=== PATIENT | female | born 1955 | race Two or more races ===

== ENCOUNTER 2016-06-01 11:27 | Inpatient (IN) | payer MEDICAID, OTHER ==
[2016-06-01] VITALS (11 sets, daily range): BP systolic 116–202; BP diastolic 55–113
[~2016-06-01] VITALS: Ht 165.1 cm; Wt 75.9 kg
[~2016-06-01 11:27] MED LIST: AMLO5TAB2 PO; ASPI81TA9 PO; ATOR40TA59 PO; CARV12.5 PO; CARV12.52 PO; CLON0.1T PO; CLOP75TA PO; DILT300C23 PO; FURO80TA3 PO; GLYB5TAB3 PO; HYDR-2869 PO; HYDR25TA9 PO; INSU100V13 SQ; ISOS30TA4 PO; LISI-334 PO
[2016-06-01 12:18] LABS: BASO # 0.1 x10^3/uL (0.0-0.2); BASO % 1 % (0-3); EOS % 3 % (0-3); HEMATOCRIT 25.1 % (36.0-47.0); HEMOGLOBIN 8.1 g/dL (12.0-15.5); LYMPH # 1.4 x10^3/uL (1.0-4.8); LYMPH % 17 % (24-48); MEAN CORPUSCULAR HEMOGLOBIN 30 pg (25-35); MEAN CORPUSCULAR HGB CONC 32 g/dL (31-37); MEAN CORPUSCULAR VOLUME 94 fL (79-100); MONO % 7 % (0-9); NEUT % 73 % (31-73); PLATELET COUNT 211 x10^3/uL (140-400); RED BLOOD COUNT 2.69 x10^6/uL (3.50-5.40); RED CELL DISTRIBUTION WIDTH 14.9 % (11.5-14.5); WHITE BLOOD COUNT 8.3 x10^3/uL (4.0-11.0)
[2016-06-01 12:29] LABS: CREATININE 3.9 mg/dL (0.6-1.0); GFR 11.8; POTASSIUM 4.9 mmol/L (3.5-5.1)
--- NOTE | 2016-06-01 12:30 | RAD ---
Portable chest, 06/01/2016: History: Chest pain Comparison is made to a study from 02/21/2016. The patient is rotated to the right. The heart is at the upper limits of normal in size. The pulmonary vascularity is more prominent than on the previous study with mild upper lobe pulmonary venous redistribution. No pulmonary consolidation is seen. There is no evidence of pleural fluid. IMPRESSION: Borderline vascular congestion.
--- NOTE | 2016-06-01 12:30 | EKG ---
[facility] [address] [place] [address] Test Date: 2016-06-01 Test Time: 11:41:20 Pat Name: JORDY GARCIA Department: Room: Gender: F Business Dean: : 1955 Requested By: NAVEED YAÑEZ Order Number: [id number] Reading MD: Latrice Hopkins Measurements Intervals [facility] Rate: 105 P: 31 CT: 150 QRS: 0 QRSD: 88 T: 158 QT: 332 QTc: 443 Interpretive Statements SINUS TACHYCARDIA LEFTWARD AXIS LVH WITH REPOLARIZATION ABNORMALITY ST T WAVE CHANGES CONSISTENT WITH LATERAL WALL ISCHEMIA Electronically Signed On 06-06-2016 14:51:48 MEDICATION AIDE by Latrice Hopkins
[2016-06-01 12:35] LABS: ALBUMIN 2.6 g/dL (3.4-5.0); ALBUMIN/GLOBULIN RATIO 0.7 (1.0-1.7); TOTAL BILIRUBIN 0.2 mg/dL (0.2-1.0); TOTAL PROTEIN 6.2 g/dL (6.4-8.2)
[2016-06-01] MEDS ORDERED: ONDANSETRON PF 4 MG/2 ML VIAL. IV PRN ×2 (12:45→15:00)
[2016-06-01] MEDS ORDERED: ASPIRIN 81 MG TAB.CHEW PO ONE (12:45)
[2016-06-01] MEDS ORDERED: NITROGLYCERIN SUBLINGUAL 0.4 MG BOTTLE OF 25. SL PRN (12:45)
[2016-06-01] MEDS ORDERED: MORPHINE SULFATE 4 MG/ML DISP.SYRIN. IV PRN (12:45)
[2016-06-01] MEDS ORDERED: HEPARIN for IV BOLUS 10,000 UNIT/10 ML VIAL. IV PRN (12:45)
--- NOTE | 2016-06-01 12:55 | PHYS DOC ---
Past Medical History Past Medical History: CAD, CHF, Diabetes-Type II, Hypertension, Other Additional Past Medical Histor: PSORASIS Past Surgical History: Angioplasty, Coronary Bypass Surgery, Other Additional Past Surgical Histo: 2L fluid removed from lungs, coronary angiography Alcohol Use: None Drug Use: None Adult General Chief Complaint Chief Complaint: CHEST WALL PAIN HPI HPI 61-year-old female with multiple medical problems including history of heart disease and renal failure presents with a 18-24 hour history of chest discomfort. She states it was problematic last night and again this morning but on arrival to the emergency department she is pain-free. She also complains of some shortness of breath and nausea but no diaphoresis. She has not been active and is unsure whether or not symptoms worsened with exertion. She states this pain feels exactly like the pain she had previously with a heart attack. Patient is [place] only speaking in the history was taken through an orthopedic shoe fitter. She does report that she was supposed to follow with a insurance agency manager and a heater engineer helper but due to insurance concerns she followed with neither of them. [] Review of Systems Review of Systems Constitutional: Denies fever or chills [] Eyes: Denies change in visual acuity, redness, or eye pain [] HENT: Denies nasal congestion or sore throat [] Respiratory: Denies cough or shortness of breath [] Cardiovascular: No additional information not addressed in HPI [] GI: Denies abdominal pain, nausea, vomiting, bloody stools or diarrhea [] : Denies dysuria or hematuria [] Musculoskeletal: Denies back pain or joint pain [] Integument: Denies rash or skin lesions [] Neurologic: Denies headache, focal weakness or sensory changes [] Endocrine: Denies polyuria or polydipsia [] Current Medications Current Medications Current Medications Medications (Trade) Dose Ordered Sig/[place] Start Time Stop Time Status Last Admin Dose Admin Aspirin 324 mg 324 mg 1X ONCE 06/01/16 12:45 06/01/16 12:48 DC 06/01/16 12:59 324 MG Heparin Sodium (Porcine) 1,950 unit PRN Q6HRS PRN 06/01/16 12:45 06/01/16 13:01 1,950 UNIT Heparin Sodium/ Dextrose 500 ml @ 19 mls/hr CONT PRN 06/01/16 12:45 06/02/16 14:45 19 MLS/HR Morphine Sulfate 4 mg PRN Q2HR PRN 06/01/16 12:45 06/02/16 12:44 DC 06/01/16 14:03 4 MG Nitroglycerin (Nitrostat) 0.4 mg PRN Q5MIN PRN 06/01/16 12:45 06/02/16 12:44 DC 06/01/16 14:03 0.4 MG Ondansetron HCl (Zofran) 4 mg PRN Q8HRS PRN 06/01/16 12:45 06/02/16 12:44 DC Allergies Allergies Allergies Coded Allergies Type Severity Reaction Last Updated Verified No Known Drug Allergies 06/22/15 No Physical Exam Physical Exam Constitutional: Well developed, well nourished, no acute distress, non-toxic appearance. [] HENT: Normocephalic, atraumatic, bilateral external ears normal, oropharynx moist, no oral exudates, nose normal. [] Eyes: PERRLA, EOMI, conjunctiva normal, no discharge. [] Neck: Normal range of motion, no tenderness, supple, no stridor. [] Cardiovascular:Heart rate regular rhythm, no murmur [] Lungs & Thorax: Bilateral breath sounds clear to auscultation [] Abdomen: Bowel sounds normal, soft, no tenderness, no masses, no pulsatile masses. [] Skin: Warm, dry, no erythema, no rash. [] Back: No tenderness, no CVA tenderness. [] Extremities: No tenderness, no cyanosis, no clubbing, ROM intact, no edema. [] Neurologic: Alert and oriented X 3, normal motor function, normal sensory function, no focal deficits noted. [] Psychologic: Affect normal, judgement normal, mood normal. [] Current Patient Data Vital Signs Vital Signs Date Time Temp Pulse Resp B/P Pulse Ox O2 Delivery O2 Flow Rate FiO2 06/01/16 12:45 102 193/91 100 Room Air 06/01/16 11:39 97.8 20 97.8 Lab Values Laboratory Tests Test 06/01/16 12:02 White Blood Count 8.3x10^3/uL (4.0-11.0) Red Blood Count 2.69x10^6/uL (3.50-5.40) L Hemoglobin 8.1g/dL (12.0-15.5) L Hematocrit 25.1% (36.0-47.0) L Mean Corpuscular Volume 94fL (79-100) Mean Corpuscular Hemoglobin 30pg (25-35) Mean Corpuscular Hemoglobin Concent 32g/dL (31-37) Red Cell Distribution Width 14.9% (11.5-14.5) H Platelet Count 211x10^3/uL (140-400) Neutrophils (%) (Auto) 73% (31-73) Lymphocytes (%) (Auto) 17% (24-48) L Monocytes (%) (Auto) 7% (0-9) Eosinophils (%) (Auto) 3% (0-3) Basophils (%) (Auto) 1% (0-3) Neutrophils # (Auto) 6.0x10^3uL (1.8-7.7) Lymphocytes # (Auto) 1.4x10^3/uL (1.0-4.8) Monocytes # (Auto) 0.6x10^3/uL (0.0-1.1) Eosinophils # (Auto) 0.2x10^3/uL (0.0-0.7) Basophils # (Auto) 0.1x10^3/uL (0.0-0.2) Sodium Level 141mmol/L (136-145) Potassium Level 4.9mmol/L (3.5-5.1) Chloride Level 111mmol/L (98-107) H Carbon Dioxide Level 19mmol/L (21-32) L Anion Gap 11 (6-14) Blood Urea Nitrogen 49mg/dL (7-20) H Creatinine 3.9mg/dL (0.6-1.0) H Estimated GFR (Cockcroft-Gault) 11.8 BUN/Creatinine Ratio 13 (6-20) Glucose Level 185mg/dL (70-99) H Calcium Level 8.0mg/dL (8.5-10.1) L Total Bilirubin 0.2mg/dL (0.2-1.0) Aspartate Amino Transferase (AST) 17U/L (15-37) Alanine Aminotransferase (ALT) 10U/L (14-59) L Alkaline Phosphatase 90U/L (46-116) Troponin I Quantitative 2.073ng/mL (0.000-0.055) HV-Wub-I-Type Natriuretic Peptide 07550oz/mL (0-124) H Total Protein 6.2g/dL (6.4-8.2) L Albumin 2.6g/dL (3.4-5.0) L Albumin/Globulin Ratio 0.7 (1.0-1.7) L Laboratory Tests 06/01/16 12:02 Laboratory Tests 06/01/16 12:02 EKG EKG [EKG: Sinus tachycardia rate of [address] depression V3 through V6 which is much more pronounced than the EKG on 02/23/2016.] Radiology/Procedures Radiology/Procedures [] Impressions: PROCEDURE: CHEST AP ONLY Portable chest, 06/01/2016: History: Chest pain Comparison is made to a study from 02/21/2016. The patient is rotated to the right. The heart is at the upper limits of normal in size. The pulmonary vascularity is more prominent than on the previous study with mild upper lobe pulmonary venous redistribution. No pulmonary consolidation is seen. There is no evidence of pleural fluid. IMPRESSION: Borderline vascular congestion. Course & Med Decision Making Course & Med Decision Making Pertinent Labs and Imaging studies reviewed. (See chart for details) CRITICAL CARE time was 30 minutes - time exclusive of any procedures performed. Care included medical management, x-ray/lab interpretation, discussions with the patient and their family as well as appropriate medical consultants. ED course: Evaluation reveals a 61-year-old female with abnormal EKG and elevated troponin. She was started on aspirin and heparin drip during her stay in the emergency department. I spoke with cardiology, nephrology and internal medicine. Dr. Falcon will admit the patient to the intensive care unit with close consultation with cardiology and nephrology. Patient is chest pain-free during her stay in the emergency department. Dragon Disclaimer Dragon Disclaimer This electronic medical record was generated, in whole or in part, using a voice recognition dictation system. Departure Departure Impression: Primary Impression: NSTEMI (non-ST elevated myocardial infarction) Additional Impression: Congestive heart failure Disposition: 09 ADMITTED INPATIENT Admitting Physician: Deniz Falcon Condition: GUARDED Referrals: NO PCP (PCP) Problem Qualifiers Additional Impression: Congestive heart failure Congestive heart failure type: systolic Congestive heart failure chronicity: acute on chronic Qualified Code: I50.23 - Acute on chronic systolic ( congestive) heart failure NAVEED YAÑEZ DO Jun 01, 2016 12:55
[2016-06-01] MEDS: HEPARIN 25,000UTS/500ML PREMIX 500 ML IV PRN (13:03)
--- NOTE | 2016-06-01 13:03 | PDOC2 ---
NABILA TOLEDO TRANSPORTATION SUPERVISOR 06/01/16 1303: CARDIAC CONSULT DATE OF CONSULT Date of Consult DATE: 06/01/16 TIME: 12:53 REASON FOR CONSULT Reason for Consult: NSTEMI REFERRING PHYSICIAN Referring Physician: Dr. Barron SOURCE Source: Caregiver, Chart review, Patient HISTORY OF PRESENT ILLNESS HISTORY OF PRESENT ILLNESS This is a 61 yo female, with a h/o CAD s/p PCI/stenting of RCA, HTN, HLP, and CKD, who presented with complaints of intermittent chest pain over the last two weeks. Worse last night. Located in left chest. Stabbing in nature. Associated with back pain and SOA. One episode of nausea/vomiting last week. Activity, along with eating and drinking seems to worsen pain. Relieved by rest. Denies LE edema or orthopnea. Positives for OCAMPO. Denies any recent illness/fevers. Reports activity has been very limited over the last couple of weeks due to pain and SOA. Patient reports financial constraints; unable to afford medications/follow-up. Apparently ran out of medication on month after recent hospitalization in January and has not taken any medications since. Presently CP free. C/o back pain and mild SOA. PAST MEDICAL HISTORY Past Medical History Cardiovascular: HTN, CAD s/p PCI/stenting to RCA, Hyperlipidemia Pulmonary: No pertinent hx, Other (pleural effusion with thoracentesis) CENTRAL NERVOUS SYSTEM: Other (No pertinent history) GI: GERD Heme/Onc: No pertinent hx Hepatobiliary: No pertinent hx Psych: No pertinent hx Musculoskeletal: Osteoarthritis Rheumatologic: No pertinent hx Infectious disease: No pertinent hx ENT: No pertinent hx Renal/: CKD Endocrine: Diabetes (2) Dermatology: Psoriasis PAST SURGICAL HISTORY Past Surgical History ureteral stent placement, PCI/stent to RCA 05/2015 FAMILY HISTORY Family History: Heart Disease SOCIAL HISTORY Smoke: No ALCOHOL: none Lives: with Family ALLERGIES ALLERGIES: Coded Allergies: No Known Drug Allergies (Unverified , 06/22/15) ROS Review of System 14 point ROS conducted with pertinent positives noted above in HPI. PHYSICAL EXAM General: Alert, Oriented X3, Cooperative, moderate distress (now on NRB) HEENT: Atraumatic, Mucous membr. moist/pink Lungs: Other (diminished bases ) Heart: Normal S1, Normal S2, Other (tele: ST, 2/6 systolci murmur ) Abdomen: Soft, No tenderness Extremities: No cyanosis, No edema, Normal pulses Skin: No breakdown, No significant lesion, Other (psoriasis ) Neuro: Normal speech, Sensation intact Psych/Mental Status: Mental status NL, Mood NL MUSCULOSKELETAL: Full range of motion without pain VITALS VITALS Vital Signs Date Time Temp Pulse Resp B/P Pulse Ox O2 Delivery O2 Flow Rate FiO2 06/01/16 11:39 97.8 109 20 166/79 100 Room Air 97.8 LABS Lab: Laboratory Tests Test 06/01/16 12:02 White Blood Count 8.3x10^3/uL (4.0-11.0) Red Blood Count 2.69x10^6/uL (3.50-5.40) Hemoglobin 8.1g/dL (12.0-15.5) Hematocrit 25.1% (36.0-47.0) Mean Corpuscular Volume 94fL (79-100) Mean Corpuscular Hemoglobin 30pg (25-35) Mean Corpuscular Hemoglobin Concent 32g/dL (31-37) Red Cell Distribution Width 14.9% (11.5-14.5) Platelet Count 211x10^3/uL (140-400) Neutrophils (%) (Auto) 73% (31-73) Lymphocytes (%) (Auto) 17% (24-48) Monocytes (%) (Auto) 7% (0-9) Eosinophils (%) (Auto) 3% (0-3) Basophils (%) (Auto) 1% (0-3) Neutrophils # (Auto) 6.0x10^3uL (1.8-7.7) Lymphocytes # (Auto) 1.4x10^3/uL (1.0-4.8) Monocytes # (Auto) 0.6x10^3/uL (0.0-1.1) Eosinophils # (Auto) 0.2x10^3/uL (0.0-0.7) Basophils # (Auto) 0.1x10^3/uL (0.0-0.2) Sodium Level 141mmol/L (136-145) Potassium Level 4.9mmol/L (3.5-5.1) Chloride Level 111mmol/L (98-107) Carbon Dioxide Level 19mmol/L (21-32) Anion Gap 11 (6-14) Blood Urea Nitrogen 49mg/dL (7-20) Creatinine 3.9mg/dL (0.6-1.0) Estimated GFR (Cockcroft-Gault) 11.8 BUN/Creatinine Ratio 13 (6-20) Glucose Level 185mg/dL (70-99) Calcium Level 8.0mg/dL (8.5-10.1) Total Bilirubin 0.2mg/dL (0.2-1.0) Aspartate Amino Transf (AST/SGOT) 17U/L (15-37) Alanine Aminotransferase (ALT/SGPT) 10U/L (14-59) Alkaline Phosphatase 90U/L (46-116) Troponin I Quantitative 2.073ng/mL (0.000-0.055) QO-Wng-H-Type Natriuretic Peptide 47761ky/mL (0-124) Total Protein 6.2g/dL (6.4-8.2) Albumin 2.6g/dL (3.4-5.0) Albumin/Globulin Ratio 0.7 (1.0-1.7) ECHOCARDIOGRAM ECHOCARDIOGRAM <Conclusion> The left ventricle is normal size. The left ventricular systolic function is low normal. The Ejection Fraction is estimated at 50%. There is mild hypokinesis in the mid to distal septal wall. There is mild concentric left ventricular hypertrophy. There is no significant aortic valvular stenosis. Doppler and Color Flow revealed no significant aortic regurgitation. Doppler and Color-flow revealed mild to moderate mitral regurgitation. Doppler and Color Flow revealed trace tricuspid regurgitation. DATE: 02/22/16 1411 STRESS TEST STRESS TEST 1. Abnormal baseline EKG but no EKG evidence of stressed induced ischemia. 2. Nuclear imaging shows partially reversible ischemia in the inferior lateral region. 3. Decreased ejection fraction at 36% with inferior apical hypokinesis. 4. Moderate risk nuclear stress test. DATE: 02/22/16 1354 HEART CATH HEART CATH Conclusion 1. 80% stenosis involving the proximal to midsegment of the right coronary artery. Also seen was diffuse disease involving the distal segments of the left anterior descending and left circumflex artery that are not amenable for percutaneous intervention. 2. Successful PCI/stents placement to the right coronary artery. Recommendations 1. Aspirin 325 mg daily 2. Plavix 75 mg daily for preferably one year 3. Cardiovascular risk factor modification DATE: 06/27/15 1596 ASSESSMENT/PLAN ASSESSMENT/PLAN 1. NSTEMI 2. CAD 3. Acute on chronic combined systolic and diastolic HF 4. Ischemic cardiomyopathy 5. Malignant HTN 6. HLP 7. ZORAN with CKD 8. Noncompliance secondary to financial constraints. Recommendations stat echo initial trop 2.073- continue with series on heparin gtt. ASA in ED. Lipids in am start nitro gtt for vasodilation/BP control will give IV lasix now cardiac cath reviewed; suspect narrow LAD to be culprit If no significant improvement of symptoms with diuresis and BP control, would recommend cardiac cath. Discussed with primary die designer apprentice. Benefits, risks (including possibility of long-term HD), and alternatives discussed with patient and daughter and are agreeable. Will monitor closely Problems: JITENDRA COBURN MD 06/01/16 8488: CARDIAC CONSULT ALLERGIES ALLERGIES: Coded Allergies: No Known Drug Allergies (Unverified , 06/22/15) ASSESSMENT/PLAN ASSESSMENT/PLAN Patient seen and examined. Agree with above nurse practitioner note. 61-year-old woman presenting with acute on chronic systolic heart failure. On examination she is tachypneic with coarse rales throughout her lung medellin. Laboratory studies reviewed and notable for elevated troponin. Prior angiogram reviewed and suspect that she has had ischemia in the setting of significant hypertension and severe mitral regurgitation and diffuse coronary disease. We will initiate medical therapy with anticoagulation including heparinization but hold off on antiplatelet therapy in the event she has surgical disease. Continue offloading the left ventricle with nitroglycerin drip and decreasing blood pressure. Initiate diuresis with Lasix. Discussed with Dr. Lundy Continue supportive care. If she does not have any significant improvement by tomorrow then we will consider cardiac catheterization. Problems: NABILA TOLEDO APRN Jun 01, 2016 13:03 JITENDRA COBURN MD Jun 01, 2016 16:58
[2016-06-01] MEDS ORDERED: CLOPIDOGREL BISULFATE 75 MG TABLET PO SCH (14:00)
[2016-06-01] MEDS ORDERED: FUROSEMIDE 40 MG/4 ML VIAL IVP ONE ×2 (14:00→14:30)
[2016-06-01] MEDS: ASPIRIN ENTERIC COATED 81 MG TABLET.DR. PO SCH (14:00)
[2016-06-01] MEDS ORDERED: NITROGLYCERIN PREMIX 250 ML IV PRN (14:30)
[2016-06-01] MEDS: ISOSORBIDE MONONITRATE ER 30 MG TAB.ER.24H PO SCH (14:30)
[2016-06-01] MEDS: AMLODIPINE BESYLATE 5 MG TABLET PO SCH (14:32)
--- NOTE | 2016-06-01 14:35 | CARD ---
APPROVED REPORT EXAM: Two-dimensional and M-mode echocardiogram with Doppler and color Doppler. Other Information Quality : Average Rhythm : NSR INDICATION Non STEMI 2D DIMENSIONS Left Atrium(2D)4.2 (1.6-4.0cm)IVSd1.6 (0.7-1.1cm) LVDd5.6 (3.9-5.9cm)LVOT Diameter2.0 (1.8-2.4cm) PWd1.6 (0.7-1.1cm)LVDs4.7 (2.5-4.0cm) FS (%) 16.4 %SV52.9 ml LVEF(%)33.9 (>50%) Aortic Valve AoV Peak Fritz.180.2cm/sAoV VTI22.4cm AO Peak GR.13.0mmHgLVOT VTI 11.87cm AO Mean GR.7mmHg Mitral Valve MV E Zlorcrie017.4cm/sMV E Peak Gr.127mmHg MV DECEL [id number] A Rlyxasfd101.2cm/s E/A Ratio1.4 Tricuspid Valve TR P. Otmsfiyl832yd/sRAP [id number] TR Peak Gr.[id number] LEFT VENTRICLE The left ventricle is normal size. There is mild to moderate concentric left ventricular hypertrophy. Left ventricle systolic function is severely impaired. The Ejection Fraction is 25%. There is severe global hypokinesis with predominance noted in the inferior, apical iraheta. Unable to assess due to ta chycardia. RIGHT VENTRICLE The right ventricle is normal size. The right ventricular systolic function is normal. ATRIA The left atrium size is normal. The right atrium size is normal. The interatrial septum is intact wit h no evidence for an atrial septal defect or patent foramen ovale as noted on 2-D or Doppler imaging. AORTIC VALVE The aortic valve is not well visualized. Doppler and Color Flow revealed no significant aortic regurg itation. There is no significant aortic valvular stenosis. MITRAL VALVE Mitral annular calcification is mild. The mitral valve leaflets are calcified. There is no mitral trisha ve stenosis. Doppler and Color Flow revealed severe mitral regurgitation. TRICUSPID VALVE The tricuspid valve is normal in structure.. Doppler and Color Flow revealed mild to moderate tricusp id regurgitation. There is moderate pulmonary hypertension. The PA pressure was estimated at 54 mmHg. There is no tricuspid valve stenosis. PULMONIC VALVE The pulmonic valve is not well visualized. Doppler and Color Flow revealed no pulmonic valvular regur gitation. There is no pulmonic valvular stenosis. GREAT VESSELS The aortic root is normal in size. The IVC is normal in size and collapses >50% with inspiration. PERICARDIAL EFFUSION There is no evidence of significant pericardial effusion. Critical Notification Date: 06/01/2016 Time: 14:26 Other Discipline : Jaylin Chanel APRN Critical Value: Yes <Conclusion> Left ventricle systolic function is severely impaired. The Ejection Fraction is 25%. There is severe global hypokinesis with predominance noted in the inferior, apical iraheta. Doppler and Color Flow revealed severe mitral regurgitation. Doppler and Color Flow revealed mild to moderate tricuspid regurgitation. There is moderate pulmonar y hypertension. The PA pressure was estimated at 54 mmHg.
--- NOTE | 2016-06-01 14:55 | PDOC1 ---
History and Physical Past Medical History Cardiovascular: HTN, Hyperlipidemia Pulmonary: No pertinent hx, Other CENTRAL NERVOUS SYSTEM: Other GI: GERD Heme/Onc: No pertinent hx Hepatobiliary: No pertinent hx Psych: No pertinent hx Rheumatologic: No pertinent hx Infectious disease: No pertinent hx Renal/: No pertinent hx Endocrine: Diabetes Past Surgical History Past Surgical History: Other Family History Family History: Heart Disease Social History Smoke: No ALCOHOL: none Drugs: None Current Problem List Problem List Problems Medical Problems: (1) Congestive heart failure Status: Acute (2) NSTEMI (non-ST elevated myocardial infarction) Status: Acute Current Medications Current Medications Current Medications Medications (Trade) Dose Ordered Sig/[place] Start Time Stop Time Status Last Admin Dose Admin Amlodipine Besylate (Norvasc) 5 mg DAILYWLUN 06/01/16 14:00 06/01/16 14:32 5 MG Aspirin (Ecotrin) 81 mg DAILYWBKFT 06/01/16 14:00 Aspirin 324 mg 324 mg 1X ONCE 06/01/16 12:45 06/01/16 12:48 DC 06/01/16 12:59 324 MG Atorvastatin Calcium (Lipitor) 80 mg QHS 06/01/16 21:00 Carvedilol (Coreg) 25 mg BIDWMEALS 06/01/16 17:00 Clopidogrel Bisulfate (Plavix) 75 mg DAILY 06/01/16 14:00 06/01/16 14:28 75 MG Furosemide (Lasix) 40 mg 1X ONCE 06/01/16 14:00 06/01/16 14:23 DC 06/01/16 14:30 40 MG Furosemide 40 mg 40 mg 1X ONCE 06/01/16 14:30 06/01/16 14:38 DC 06/01/16 14:30 40 MG Heparin Sodium (Porcine) 1,950 unit PRN Q6HRS PRN 06/01/16 12:45 06/01/16 13:01 1,950 UNIT Heparin Sodium/ Dextrose 500 ml @ 19 mls/hr CONT PRN 06/01/16 12:45 06/01/16 13:03 19 MLS/HR Isosorbide Mononitrate (Imdur) 30 mg DAILY 06/01/16 14:00 06/01/16 14:30 30 MG Morphine Sulfate 4 mg PRN Q2HR PRN 06/01/16 12:45 06/02/16 12:44 06/01/16 14:03 4 MG Nitroglycerin (Nitrostat) 0.4 mg PRN Q5MIN PRN 06/01/16 12:45 06/02/16 12:44 06/01/16 14:03 0.4 MG Nitroglycerin/ Dextrose (Nitroglycerin Drip) 250 ml @ 0 mls/hr CONT PRN 06/01/16 14:30 Ondansetron HCl (Zofran) 4 mg PRN Q8HRS PRN 06/01/16 12:45 06/02/16 12:44 Allergies Allergies Allergies Coded Allergies Type Severity Reaction Last Updated Verified No Known Drug Allergies 06/22/15 No ROS Review of System CONSTITUTIONAL: No fever or chills EYES: No recent changes SKIN: No rash or itching CARDIOVASCULAR: chest pain, RESPIRATORY: SOB GASTROINTESTINAL: No nausea, vomiting or abdominal pain NEUROLOGICAL: No headaches or weakness ENDOCRINE: No cold or heat intolerance GENITOURINARY: No urgency or frequency of urination MUSCULOSKELETAL: No back pain or joint pain LYMPHATICS: No enlarged lymph nodes PSYCHIATRIC: No anxiety or depression Physical Exam Physical Exam GEN.: No apparent distress. Alert and oriented. HEENT: Head is normocephalic, atraumatic NECK: Supple. no jvd LUNGS: rales. HEART: RRR, S1, S2 present. Peripheral pulses intact ABDOMEN: Soft, nontender. Positive bowel sounds. distended. EXTREMITIES: Without any cyanosis. NEUROLOGIC: Normal speech, normal tone PSYCHIATRIC: Normal affect, normal mood. SKIN: rash on forehead, ext surface of fore arms Vitals Vitals Vital Signs Date Time Temp Pulse Resp B/P Pulse Ox O2 Delivery O2 Flow Rate FiO2 06/01/16 14:32 130 202/95 06/01/16 14:03 26 86 Nasal Cannula 2.0 06/01/16 11:39 97.8 97.8 Labs Labs Laboratory Tests Test 06/01/16 12:02 White Blood Count 8.3x10^3/uL (4.0-11.0) Red Blood Count 2.69x10^6/uL (3.50-5.40) Hemoglobin 8.1g/dL (12.0-15.5) Hematocrit 25.1% (36.0-47.0) Mean Corpuscular Volume 94fL (79-100) Mean Corpuscular Hemoglobin 30pg (25-35) Mean Corpuscular Hemoglobin Concent 32g/dL (31-37) Red Cell Distribution Width 14.9% (11.5-14.5) Platelet Count 211x10^3/uL (140-400) Neutrophils (%) (Auto) 73% (31-73) Lymphocytes (%) (Auto) 17% (24-48) Monocytes (%) (Auto) 7% (0-9) Eosinophils (%) (Auto) 3% (0-3) Basophils (%) (Auto) 1% (0-3) Neutrophils # (Auto) 6.0x10^3uL (1.8-7.7) Lymphocytes # (Auto) 1.4x10^3/uL (1.0-4.8) Monocytes # (Auto) 0.6x10^3/uL (0.0-1.1) Eosinophils # (Auto) 0.2x10^3/uL (0.0-0.7) Basophils # (Auto) 0.1x10^3/uL (0.0-0.2) Sodium Level 141mmol/L (136-145) Potassium Level 4.9mmol/L (3.5-5.1) Chloride Level 111mmol/L (98-107) Carbon Dioxide Level 19mmol/L (21-32) Anion Gap 11 (6-14) Blood Urea Nitrogen 49mg/dL (7-20) Creatinine 3.9mg/dL (0.6-1.0) Estimated GFR (Cockcroft-Gault) 11.8 BUN/Creatinine Ratio 13 (6-20) Glucose Level 185mg/dL (70-99) Calcium Level 8.0mg/dL (8.5-10.1) Total Bilirubin 0.2mg/dL (0.2-1.0) Aspartate Amino Transf (AST/SGOT) 17U/L (15-37) Alanine Aminotransferase (ALT/SGPT) 10U/L (14-59) Alkaline Phosphatase 90U/L (46-116) Troponin I Quantitative 2.073ng/mL (0.000-0.055) TQ-Kuc-V-Type Natriuretic Peptide 70781yp/mL (0-124) Total Protein 6.2g/dL (6.4-8.2) Albumin 2.6g/dL (3.4-5.0) Albumin/Globulin Ratio 0.7 (1.0-1.7) Laboratory Tests Test 06/01/16 12:02 White Blood Count 8.3x10^3/uL (4.0-11.0) Red Blood Count 2.69x10^6/uL (3.50-5.40) Hemoglobin 8.1g/dL (12.0-15.5) Hematocrit 25.1% (36.0-47.0) Mean Corpuscular Volume 94fL (79-100) Mean Corpuscular Hemoglobin 30pg (25-35) Mean Corpuscular Hemoglobin Concent 32g/dL (31-37) Red Cell Distribution Width 14.9% (11.5-14.5) Platelet Count 211x10^3/uL (140-400) Neutrophils (%) (Auto) 73% (31-73) Lymphocytes (%) (Auto) 17% (24-48) Monocytes (%) (Auto) 7% (0-9) Eosinophils (%) (Auto) 3% (0-3) Basophils (%) (Auto) 1% (0-3) Neutrophils # (Auto) 6.0x10^3uL (1.8-7.7) Lymphocytes # (Auto) 1.4x10^3/uL (1.0-4.8) Monocytes # (Auto) 0.6x10^3/uL (0.0-1.1) Eosinophils # (Auto) 0.2x10^3/uL (0.0-0.7) Basophils # (Auto) 0.1x10^3/uL (0.0-0.2) Sodium Level 141mmol/L (136-145) Potassium Level 4.9mmol/L (3.5-5.1) Chloride Level 111mmol/L (98-107) Carbon Dioxide Level 19mmol/L (21-32) Anion Gap 11 (6-14) Blood Urea Nitrogen 49mg/dL (7-20) Creatinine 3.9mg/dL (0.6-1.0) Estimated GFR (Cockcroft-Gault) 11.8 BUN/Creatinine Ratio 13 (6-20) Glucose Level 185mg/dL (70-99) Calcium Level 8.0mg/dL (8.5-10.1) Total Bilirubin 0.2mg/dL (0.2-1.0) Aspartate Amino Transf (AST/SGOT) 17U/L (15-37) Alanine Aminotransferase (ALT/SGPT) 10U/L (14-59) Alkaline Phosphatase 90U/L (46-116) Troponin I Quantitative 2.073ng/mL (0.000-0.055) EH-Ank-Q-Type Natriuretic Peptide 14054mm/mL (0-124) Total Protein 6.2g/dL (6.4-8.2) Albumin 2.6g/dL (3.4-5.0) Albumin/Globulin Ratio 0.7 (1.0-1.7) VTE Prophylaxis Ordered VTE Prophylaxis Devices: Yes VTE Pharmacological Prophylaxi: Yes SELMA LALA MD Jun 01, 2016 14:55
[2016-06-01] MEDS ORDERED: ALBUTEROL SULFATE 2.5 MG/3 ML NEBU. NEB PRN (15:00)
[2016-06-01] MEDS ORDERED: hydrALAZINE 20 MG/ML VIAL. IVP PRN (15:00)
[2016-06-01] MEDS ORDERED: DEXTROSE 50% 25 GM / 50ML DISP.SYRIN. IV PRN (15:00)
--- NOTE | 2016-06-01 16:14 | ACF ---
Admission Forms Criteria MYOCARDIAL INFARCTION Clinical Indications for Admission to Inpatient Care (Place 'X' for any and all applicable criteria): Admission is indicated for ANY ONE of the following (1)(2)(3)(4): [X]I. Acute [place] [ ]II. Contraindications and/or Inappropriate clinical situations for Observational Care in patients with Myocardial Infarction, when ANY ONE of the following is required: [ ]a) Patient with High risk of cardiac embolism (e.g, patients with previous cardiac embolism, LVEF < 40%, age >75 and patients with prosthetic valve) 18 [ ]b) Patient with Moderate risk including DM patient, CAD and patient aged 65-75 18 [ ]c) Patient with any change in cardiac biomarker especially troponin should be managed as high risk in an inpatient setting 19 [ ]d) Physician judgement irrespective of ECG and other diagnostic findings 20 [ ]III.General contraindications and/or Inappropriate clinical situations for Observational Care in patients with Myocardial Infarction, when ANY ONE of the following is required: [ ]a) Prediction of prolongation of LOS based on ANY ONE of the following may be considered as a contraindication for observational care 2, 3, 4, 5, 6, 7, 8, 9, 10, 11 [ ]i) Age > 65 yrs. [ ]ii) Patient arriving by ambulance [ ]iii) Patient with high acuity [ ]iv) Patient requiring vital sign monitoring [ ]v) Patient on IV medication [ ]b) Systolic blood pressures 180mmHg 3,12 [ ]c) Patient with altered mental status including delirium and other alteration of consciousness, (3) [ ]d) Patient whose discharge disposition will be to a usp home or rehabilitation home should not be managed in Emergency Department Observation Unit. CMS rule requires 3 days hospital stay before such placement. 3,13 [ ]e) Patient with failure to thrive due to broad array of etiologies 3 ,16,17 [ ]f) Inability to ambulate 3,14 Extended stay beyond goal length of stay may be needed for (1)(18)(20)(24)(25): [ ]a) Hemodynamic instability, persisting symptoms after intensive medical management, or recurring severe, prolonged symptoms [ ]b) Intravascular procedural complications such as acute vessel closure, stent thrombosis, stent malposition, or vessel dissection (26)(27)(28) [ ]c) Extravascular procedural complications such as retroperitoneal hematoma , pericardial effusion, or cardiac tamponade [ ]d) Entry site complications causing bleeding, hematoma or distal ischemia and requiring ongoing monitoring, surgical repair or surgical thrombectomy(29) [ ]e) Dangerous arrhythmia [ ]f) Complicated percutaneous coronary intervention (e.g., unsuccessful percutaneous coronary intervention or percutaneous coronary intervention of non- [place] vessel) [ ]g) Urgent or emergent surgery for complications of [place] (e.g., ventricular rupture, valvular insufficiency) [ ]h) Surgical revascularization via coronary artery bypass graft [ ]i) Heart failure (e.g., pulmonary edema) [ ]j) Unstable pulmonary comorbidities, including COPD or pneumonia (31) [ ]k) Acute renal failure The original [employer] content created by [employer] has been revised. The portions of the content which have been revised are identified through the use of italic text or in bold, and [employer] has neither reviewed nor approved the modified material. All other unmodified content is copyright [facility] [employer] Please see references footnoted in the original [facility] [facility] mountain[facility]veySnap edition 2016 HERI ESPOSITO Jun 01, 2016 16:14
[2016-06-01] MEDS: ANTI-COAG MONITOR BY PHARMACY. MC PRN ×2 (16:48→16:51)
[2016-06-01] MEDS: INSULIN ASPART 300 UNITS/3 ML INSULN.PEN SQ SCH (17:00)
[2016-06-01] MEDS: CARVEDILOL 12.5 MG TABLET PO SCH (18:21)
--- NOTE | 2016-06-01 19:17 | HP ---
ADMIT DATE: 06/01/2016 CHIEF COMPLAINT: Chest pain. HISTORY OF PRESENT ILLNESS: The patient is a 61-year-old female patient with prior history of coronary artery disease and status post PCI and stenting in 01/2016, presented to the ER with complaints of intermittent chest pain for nearly 2 weeks. She describes the pain as stabbing in nature. Last night, she had severe back pain associated with nausea and vomiting, which made her come to the ER. Most of the history obtained from the family member who speaks Jamaican. The patient does not speak Jamaican. I did review her old records and the family reports that the patient is not able to take her medication due to financial status and she denies any other complaints. PAST MEDICAL HISTORY: Hypertension, coronary artery disease, hyperlipidemia, GERD, diabetes mellitus, CKD, psoriasis. PAST SURGICAL HISTORY: Ureteral stent placement, PCI stent placement in 2015. FAMILY HISTORY: Coronary artery disease. SOCIAL HISTORY: No smoking, no alcohol, no drug abuse. Lives with family. ALLERGIES: NKDA. REVIEW OF SYSTEMS, PHYSICAL EXAMINATION: Please see my electronic H and P. LABORATORY DATA: WBC 8.3, hemoglobin is 8.1, MCV is 94, platelets 211. Chemistry: Sodium is 141, potassium 4.9, chloride 111, carbon dioxide 19, anion gap is 11, BUN is 49, creatinine is 3.9, and troponin is 2.073 and a proBNP 25,902. IMAGING STUDIES: Chest x-ray, borderline vascular congestion. EKG, not able to personally review. As per the ER report, diffuse depressions in lateral leads V2-V4. ASSESSMENT AND PLAN: 1. Acute on chronic systolic congestive heart failure. 2. Wqk-PB-mgtugyq elevation myocardial infarction. 3. Coronary artery disease. 4. Ischemic cardiomyopathy. 5. Malignant hypertension, POA 6. Noncompliance with medications due to financial troubles. 7. Hyperlipidemia. 8. Psoriasis. PLAN: 1. The patient has been admitted to critical care unit and she is currently started on heparin gtt. as per protocol and also she was started on nitro gtt. and goal is to control her blood pressure systolic less than 140. She received IV Lasix and we will monitor intake and output. 2. Monitor her troponins. 3. Echocardiogram has been ordered, severely depressed LV ejection fraction. Continue, Lasix Plavix and aspirin for now. 4. Sliding scale insulin. 5. Labs, CBC, BMP in a.m. Overall prognosis is guarded and consult secondary social studies teacher for repeated admissions and financial help. 6. Plan explained to the family member at bedside. All questions were answered. SELMA LALA MD DR: ADITI/cris JOB#: [id number] / [id number] [place]
[2016-06-01] MEDS: ATORVASTATIN CALCIUM 40 MG TABLET. PO SCH (20:59)
[2016-06-02] VITALS (24 sets, daily range): BP systolic 111–155; BP diastolic 56–87
[2016-06-02] MEDS: INSULIN ASPART 300 UNITS/3 ML INSULN.PEN SQ SCH ×3 (08:00→16:41)
[2016-06-02 08:14] LABS: BASO # 0.1 x10^3/uL (0.0-0.2); BASO % 1 % (0-3); EOS % 5 % (0-3); HEMATOCRIT 22.5 % (36.0-47.0); HEMOGLOBIN 7.3 g/dL (12.0-15.5); LYMPH # 0.7 x10^3/uL (1.0-4.8); LYMPH % 11 % (24-48); MEAN CORPUSCULAR HEMOGLOBIN 31 pg (25-35); MEAN CORPUSCULAR HGB CONC 33 g/dL (31-37); MEAN CORPUSCULAR VOLUME 94 fL (79-100); MONO % 5 % (0-9); NEUT % 78 % (31-73); PLATELET COUNT 189 x10^3/uL (140-400); RED BLOOD COUNT 2.39 x10^6/uL (3.50-5.40); RED CELL DISTRIBUTION WIDTH 15.3 % (11.5-14.5); WHITE BLOOD COUNT 6.6 x10^3/uL (4.0-11.0)
[2016-06-02 08:19] LABS: CALCIUM 8.3 mg/dL (8.5-10.1); CREATININE 4.2 mg/dL (0.6-1.0); GFR 10.8; POTASSIUM 4.5 mmol/L (3.5-5.1)
[2016-06-02] MEDS: CARVEDILOL 12.5 MG TABLET PO SCH ×2 (08:31→16:42)
[2016-06-02 08:32] LABS: CHOLESTEROL/HDL RATIO 7.3
[2016-06-02] MEDS: AMLODIPINE BESYLATE 5 MG TABLET PO SCH (08:32)
[2016-06-02] MEDS: ANTI-COAG MONITOR BY PHARMACY. MC PRN (08:34)
--- NOTE | 2016-06-02 09:05 | RAD ---
Indication:Abdominal distention Grayscale images of the abdomen were obtained. The examination is limited. The patient is not able to fully cooperate with the study Comparison none. Liver:There is some increased attenuation of the ultrasound beam by the liver compatible with fatty infiltration. A focal mass lesion is not seen in the visualized liver Gallbladder:There is cholelithiasis. Wall thickening or pericholecystic fluid is not seen. The common bile duct diameter of approximately 5 mm is normal Spleen:Not optimally visualized but grossly normal Pancreas:The head and body of the pancreas appeared unremarkable. The tail was obscured by gas Kidneys:The right kidney measures 11.6 x 5.3 x 4.8 cm. There is a 1.4 cm mass, compatible with a cyst, associated with the right kidney. The left kidney is poorly visualized. There is a prominent renal pelvis. Findings may reflect an extrarenal pelvis or hydronephrosis. There is a hypoechoic 1.9 cm mass associated with the left kidney compatible with a cyst.. Both kidneys are noted to be echogenic suggesting medical renal disease Abdominal aorta and IVC:The visualized inferior vena cava appeared normal. The proximal and mid abdominal aorta appeared unremarkable. The distal abdominal aorta was obscured. Ancillary findings:Right pleural effusion Impression:Cholelithiasis Fatty infiltration of the liver. Bilateral renal cysts. Additional findings suggesting medical renal disease. Extrarenal pelvis versus hydronephrosis on the left Midline structures partially obscured by gas
[2016-06-02] MEDS ORDERED: MAGNESIUM SULFATE 2GM 50 ML IV PRN (11:15)
--- NOTE | 2016-06-02 11:16 | PDOC2 ---
CONSULT Date of Consult Date of Consult DATE: 06/02/16 TIME: 11:10 Reason for Consult Reason for Consult: ZORAN + CKD Iv Referring Physician Referring Physician: Dr proctor Identification/Chief Complaint Chief Complaint NSTEMI, SOB Problems: Source Source: Caregiver, Patient History of Present Illness Reason for Visit: as dictated Past Medical History Cardiovascular: HTN, Hyperlipidemia Pulmonary: No pertinent hx, Other CENTRAL NERVOUS SYSTEM: Other GI: GERD Heme/Onc: No pertinent hx Hepatobiliary: No pertinent hx Psych: No pertinent hx Musculoskeletal: Osteoarthritis Rheumatologic: No pertinent hx Infectious disease: No pertinent hx Renal/: No pertinent hx Endocrine: Diabetes Past Surgical History Past Surgical History: Cystoscopy, Other Family History Family History: Heart Disease Social History No ALCOHOL: none Drugs: None Lives: with Family Current Problem List Problem List Problems Medical Problems: (1) Congestive heart failure Status: Acute (2) NSTEMI (non-ST elevated myocardial infarction) Status: Acute Current Medications Current Medications Current Medications Aspirin 324 mg 324 mg 1X ONCE PO Last administered on 06/01/16 12:59; Start at 12:45; Stop 06/01/16 at 12:48; Status DC Heparin Sodium/ Dextrose 500 ml @ 19 mls/hr CONT PRN IV SEE I/O RECORD Last administered on 06/01/16 13:03; Start 06/01/16 at 12:45 Heparin Sodium (Porcine) 1,950 unit PRN Q6HRS PRN IV FOR UFH LEVEL LESS THAN 0.2 Last administered on 06/01/16 13:01; Start 06/01/16 at 12:45 Ondansetron HCl (Zofran) 4 mg PRN Q8HRS PRN IV NAUSEA/VOMITING; Start 06/01/16 at 12:45; Stop 06/02/16 at 12:44 Morphine Sulfate 4 mg PRN Q2HR PRN IV PAIN Last administered on 06/01/16 14:03 ; Start 06/01/16 at 12:45; Stop 06/02/16 at 12:44 Nitroglycerin (Nitrostat) 0.4 mg PRN Q5MIN PRN SL CHEST PAIN Last administered on 06/01/16 14:03; Start 06/01/16 at 12:45; Stop 06/02/16 at 12:44 Amlodipine Besylate (Norvasc) 5 mg DAILYWLUN PO Last administered on 06/02/16 08:32; Start 06/01/16 at 14:00 Aspirin (Ecotrin) 81 mg DAILYWBKFT PO ; Start 06/01/16 at 14:00 Atorvastatin Calcium (Lipitor) 80 mg QHS PO Last administered on 06/01/16 20:59 ; Start 06/01/16 at 21:00 Carvedilol (Coreg) 25 mg BIDWMEALS PO Last administered on 06/02/16 08:31; Start 06/01/16 at 17:00 Clopidogrel Bisulfate (Plavix) 75 mg DAILY PO Last administered on 06/01/16 14: 28; Start 06/01/16 at 14:00; Stop 06/02/16 at 08:41; Status DC Isosorbide Mononitrate (Imdur) 30 mg DAILY PO Last administered on 06/01/16 14: 30; Start 06/01/16 at 14:00 Furosemide (Lasix) 40 mg 1X ONCE IVP Last administered on 06/01/16 14:30; Start 06/01/16 at 14:00; Stop 06/01/16 at 14:23; Status DC Furosemide 40 mg 40 mg 1X ONCE IVP Last administered on 06/01/16 14:30; Start 06/01/16 at 14:30; Stop 06/01/16 at 14:38; Status DC Nitroglycerin/ Dextrose (Nitroglycerin Drip) 250 ml @ 0 mls/hr CONT PRN IV SEE I/O RECORD Last administered on 06/01/16 15:23; Start 06/01/16 at 14:30 Acetaminophen (Tylenol) 325 mg PRN Q6HRS PRN PO MILD PAIN / TEMP; Start at 15:00 Acetaminophen/ Hydrocodone Bitart (Lortab 5/325) 1 tab PRN Q6HRS PRN PO MODERATE TO SEVERE PAIN; Start 06/01/16 at 15:00 Hydralazine HCl (Apresoline) 10 mg PRN Q4HRS PRN IVP ELEVATED BP, SEE COMMENTS ; Start 06/01/16 at 15:00 Ondansetron HCl (Zofran) 4 mg PRN Q8HRS PRN IV NAUSEA/VOMITING; Start 06/01/16 at 15:00 Albuterol Sulfate (Ventolin Neb Soln) 2.5 mg PRN Q4HRS PRN NEB SHORTNESS OF BREATH; Start 06/01/16 at 15:00 Insulin Aspart (Novolog) 0-7 UNITS TIDWMEALS SQ ; Start 06/01/16 at 17:00 Dextrose 12.5 gm PRN Q15MIN PRN IV SEE COMMENTS; Start 06/01/16 at 15:00 Info (Anti-Coagulation Monitoring By Pharmacy) 1 each PRN DAILY PRN MC SEE COMMENTS Last administered on 06/02/16t 08:34; Start 06/01/16 at 17:00 Active Scripts Active Lisinopril 20 Mg Tablet 20 Mg PO QHS Isosorbide Mononitrate Er (Isosorbide Mononitrate) 30 Mg Tab.er.24h 30 Mg PO DAILY Hydralazine Hcl 50 Mg Tablet 100 Mg PO TID Carvedilol 12.5 Mg Tablet 25 Mg PO BIDWMEALS Atorvastatin Calcium 40 Mg Tablet 80 Mg PO QHS Aspirin Ec (Aspirin) 81 Mg Tablet. 81 Mg PO DAILYWBKFT Amlodipine Besylate 5 Mg Tablet 5 Mg PO DAILYWLUN Reported Clopidogrel (Clopidogrel Bisulfate) 75 Mg Tablet 75 Mg PO DAILY Glyburide 5 Mg Tablet 1 Tab PO BIDWMEALS Lisinopril 20 Mg Tablet 1 Tab PO DAILY Allergies Allergies: Coded Allergies: No Known Drug Allergies (Unverified , 06/22/15) ROS Review of System as dictated in HPI Physical Exam Physical Exam GEN: Awake, Oriented x 3, In no distress EYES: Vision Unchanged, Conjunctiva Normal EN: No EN Drainage, Mucous Membranes moist NECK: no JVD, min JVP, Supple, no Thyromegaly CVS: S1S2, ? Murmur, No Gallop, No Rub,tr Edema RESP: rare Rales, no Rhonchi,no Acc. Muscle Use GI: BS + ve, NO Bruit, Non Tender, Non Distended : no CVA tenderness, no Suprapubic Tenderness Vital Signs Vital Signs Date Time Temp Pulse Resp B/P Pulse Ox O2 Delivery O2 Flow Rate FiO2 06/02/16 08:32 153/70 06/02/16 08:00 99.0 86 20 98 Room Air 99.0 06/01/16 21:00 2.0 Assessment & Plan ESRD: Dialysis as below F 180 NR 3.0 Hrs 3 K 2.5 Ca 140 Na 40 HC03 Qb 350 + Qd 500+ Heparin 0 Units Uf 2 Kgs or to dry weight as tolerated May give 25-50 gms of 25% Albumin if needed to maintain Hemodynamic stability Treatment plan reviewed and discussed with deli clerk Francoise HAMM to use ARB Met Acidosis - Correct with HD Anemia: start Epogen once BP are better controlled; Transfuse with next HD as needed. HTN: Current BP meds reviewed. See orders for changes. Discussed Plan of Care and prognosis etc. at length with family. Labs Labs Laboratory Tests Test 06/01/16 12:02 06/01/16 14:05 06/01/16 18:19 06/01/16 18:40 White Blood Count 8.3x10^3/uL (4.0-11.0) Red Blood Count 2.69x10^6/uL (3.50-5.40) Hemoglobin 8.1g/dL (12.0-15.5) Hematocrit 25.1% (36.0-47.0) Mean Corpuscular Volume 94fL (79-100) Mean Corpuscular Hemoglobin 30pg (25-35) Mean Corpuscular Hemoglobin Concent 32g/dL (31-37) Red Cell Distribution Width 14.9% (11.5-14.5) Platelet Count 211x10^3/uL (140-400) Neutrophils (%) (Auto) 73% (31-73) Lymphocytes (%) (Auto) 17% (24-48) Monocytes (%) (Auto) 7% (0-9) Eosinophils (%) (Auto) 3% (0-3) Basophils (%) (Auto) 1% (0-3) Neutrophils # (Auto) 6.0x10^3uL (1.8-7.7) Lymphocytes # (Auto) 1.4x10^3/uL (1.0-4.8) Monocytes # (Auto) 0.6x10^3/uL (0.0-1.1) Eosinophils # (Auto) 0.2x10^3/uL (0.0-0.7) Basophils # (Auto) 0.1x10^3/uL (0.0-0.2) Sodium Level 141mmol/L (136-145) Potassium Level 4.9mmol/L (3.5-5.1) Chloride Level 111mmol/L (98-107) Carbon Dioxide Level 19mmol/L (21-32) Anion Gap 11 (6-14) Blood Urea Nitrogen 49mg/dL (7-20) Creatinine 3.9mg/dL (0.6-1.0) Estimated GFR (Cockcroft-Gault) 11.8 BUN/Creatinine Ratio 13 (6-20) Glucose Level 185mg/dL (70-99) Calcium Level 8.0mg/dL (8.5-10.1) Total Bilirubin 0.2mg/dL (0.2-1.0) Aspartate Amino Transf (AST/SGOT) 17U/L (15-37) Alanine Aminotransferase (ALT/SGPT) 10U/L (14-59) Alkaline Phosphatase 90U/L (46-116) Troponin I Quantitative 2.073ng/mL (0.000-0.055) 3.922ng/mL (0.000-0.055) VT-Agq-R-Type Natriuretic Peptide 50343yp/mL (0-124) Total Protein 6.2g/dL (6.4-8.2) Albumin 2.6g/dL (3.4-5.0) Albumin/Globulin Ratio 0.7 (1.0-1.7) Nasal Screen MRSA (PCR) Negative (Negative) Glucose (Fingerstick) 174mg/dL (70-99) Test 06/02/16 00:28 06/02/16 01:10 06/02/16 07:50 06/02/16 10:38 Troponin I Quantitative 4.814ng/mL (0.000-0.055) Heparin Anti-Xa Act, Unfractionated 0.20IU/mL (0.30-0.70) 0.30IU/mL (0.30-0.70) White Blood Count 6.6x10^3/uL (4.0-11.0) Red Blood Count 2.39x10^6/uL (3.50-5.40) Hemoglobin 7.3g/dL (12.0-15.5) Hematocrit 22.5% (36.0-47.0) Mean Corpuscular Volume 94fL (79-100) Mean Corpuscular Hemoglobin 31pg (25-35) Mean Corpuscular Hemoglobin Concent 33g/dL (31-37) Red Cell Distribution Width 15.3% (11.5-14.5) Platelet Count 189x10^3/uL (140-400) Neutrophils (%) (Auto) 78% (31-73) Lymphocytes (%) (Auto) 11% (24-48) Monocytes (%) (Auto) 5% (0-9) Eosinophils (%) (Auto) 5% (0-3) Basophils (%) (Auto) 1% (0-3) Neutrophils # (Auto) 5.1x10^3uL (1.8-7.7) Lymphocytes # (Auto) 0.7x10^3/uL (1.0-4.8) Monocytes # (Auto) 0.4x10^3/uL (0.0-1.1) Eosinophils # (Auto) 0.3x10^3/uL (0.0-0.7) Basophils # (Auto) 0.1x10^3/uL (0.0-0.2) Sodium Level 141mmol/L (136-145) Potassium Level 4.5mmol/L (3.5-5.1) Chloride Level 110mmol/L (98-107) Carbon Dioxide Level 20mmol/L (21-32) Anion Gap 11 (6-14) Blood Urea Nitrogen 49mg/dL (7-20) Creatinine 4.2mg/dL (0.6-1.0) Estimated GFR (Cockcroft-Gault) 10.8 Glucose Level 100mg/dL (70-99) Calcium Level 8.3mg/dL (8.5-10.1) Triglycerides Level 307mg/dL (0-150) Cholesterol Level 351mg/dL (0-200) LDL Cholesterol, Calculated 242mg/dL (0-100) VLDL Cholesterol, Calculated 61mg/dL (0-40) HDL Cholesterol 48mg/dL (40-60) Cholesterol/HDL Ratio 7.3 Glucose (Fingerstick) 95mg/dL (70-99) Laboratory Tests Test 06/01/16 12:02 06/01/16 14:05 06/01/16 18:19 06/01/16 18:40 White Blood Count 8.3x10^3/uL (4.0-11.0) Red Blood Count 2.69x10^6/uL (3.50-5.40) Hemoglobin 8.1g/dL (12.0-15.5) Hematocrit 25.1% (36.0-47.0) Mean Corpuscular Volume 94fL (79-100) Mean Corpuscular Hemoglobin 30pg (25-35) Mean Corpuscular Hemoglobin Concent 32g/dL (31-37) Red Cell Distribution Width 14.9% (11.5-14.5) Platelet Count 211x10^3/uL (140-400) Neutrophils (%) (Auto) 73% (31-73) Lymphocytes (%) (Auto) 17% (24-48) Monocytes (%) (Auto) 7% (0-9) Eosinophils (%) (Auto) 3% (0-3) Basophils (%) (Auto) 1% (0-3) Neutrophils # (Auto) 6.0x10^3uL (1.8-7.7) Lymphocytes # (Auto) 1.4x10^3/uL (1.0-4.8) Monocytes # (Auto) 0.6x10^3/uL (0.0-1.1) Eosinophils # (Auto) 0.2x10^3/uL (0.0-0.7) Basophils # (Auto) 0.1x10^3/uL (0.0-0.2) Sodium Level 141mmol/L (136-145) Potassium Level 4.9mmol/L (3.5-5.1) Chloride Level 111mmol/L (98-107) Carbon Dioxide Level 19mmol/L (21-32) Anion Gap 11 (6-14) Blood Urea Nitrogen 49mg/dL (7-20) Creatinine 3.9mg/dL (0.6-1.0) Estimated GFR (Cockcroft-Gault) 11.8 BUN/Creatinine Ratio 13 (6-20) Glucose Level 185mg/dL (70-99) Calcium Level 8.0mg/dL (8.5-10.1) Total Bilirubin 0.2mg/dL (0.2-1.0) Aspartate Amino Transf (AST/SGOT) 17U/L (15-37) Alanine Aminotransferase (ALT/SGPT) 10U/L (14-59) Alkaline Phosphatase 90U/L (46-116) Troponin I Quantitative 2.073ng/mL (0.000-0.055) 3.922ng/mL (0.000-0.055) AF-Aml-O-Type Natriuretic Peptide 60178ie/mL (0-124) Total Protein 6.2g/dL (6.4-8.2) Albumin 2.6g/dL (3.4-5.0) Albumin/Globulin Ratio 0.7 (1.0-1.7) Nasal Screen MRSA (PCR) Negative (Negative) Glucose (Fingerstick) 174mg/dL (70-99) Test 06/02/16 00:28 06/02/16 01:10 06/02/16 07:50 06/02/16 10:38 Troponin I Quantitative 4.814ng/mL (0.000-0.055) Heparin Anti-Xa Act, Unfractionated 0.20IU/mL (0.30-0.70) 0.30IU/mL (0.30-0.70) White Blood Count 6.6x10^3/uL (4.0-11.0) Red Blood Count 2.39x10^6/uL (3.50-5.40) Hemoglobin 7.3g/dL (12.0-15.5) Hematocrit 22.5% (36.0-47.0) Mean Corpuscular Volume 94fL (79-100) Mean Corpuscular Hemoglobin 31pg (25-35) Mean Corpuscular Hemoglobin Concent 33g/dL (31-37) Red Cell Distribution Width 15.3% (11.5-14.5) Platelet Count 189x10^3/uL (140-400) Neutrophils (%) (Auto) 78% (31-73) Lymphocytes (%) (Auto) 11% (24-48) Monocytes (%) (Auto) 5% (0-9) Eosinophils (%) (Auto) 5% (0-3) Basophils (%) (Auto) 1% (0-3) Neutrophils # (Auto) 5.1x10^3uL (1.8-7.7) Lymphocytes # (Auto) 0.7x10^3/uL (1.0-4.8) Monocytes # (Auto) 0.4x10^3/uL (0.0-1.1) Eosinophils # (Auto) 0.3x10^3/uL (0.0-0.7) Basophils # (Auto) 0.1x10^3/uL (0.0-0.2) Sodium Level 141mmol/L (136-145) Potassium Level 4.5mmol/L (3.5-5.1) Chloride Level 110mmol/L (98-107) Carbon Dioxide Level 20mmol/L (21-32) Anion Gap 11 (6-14) Blood Urea Nitrogen 49mg/dL (7-20) Creatinine 4.2mg/dL (0.6-1.0) Estimated GFR (Cockcroft-Gault) 10.8 Glucose Level 100mg/dL (70-99) Calcium Level 8.3mg/dL (8.5-10.1) Triglycerides Level 307mg/dL (0-150) Cholesterol Level 351mg/dL (0-200) LDL Cholesterol, Calculated 242mg/dL (0-100) VLDL Cholesterol, Calculated 61mg/dL (0-40) HDL Cholesterol 48mg/dL (40-60) Cholesterol/HDL Ratio 7.3 Glucose (Fingerstick) 95mg/dL (70-99) Images Images ABD US: Cholelithiasis Fatty infiltration of the liver. Bilateral renal cysts. Additional findings suggesting medical renal disease. Extrarenal pelvis versus hydronephrosis on the left Midline structures partially obscured by gas Portable chest, 06/01/2016: History: Chest pain Comparison is made to a study from 02/21/2016. The patient is rotated to the right. The heart is at the upper limits of normal in size. The pulmonary vascularity is more prominent than on the previous study with mild upper lobe pulmonary venous redistribution. No pulmonary consolidation is seen. There is no evidence of pleural fluid. IMPRESSION: Borderline vascular congestion. PALMA HERNANDEZ MD Jun 02, 2016 11:16
--- NOTE | 2016-06-02 12:05 | PDOC ---
PROGRESS NOTES Chief Complaint Chief Complaint cc: sob A//P 1. Acute on chronic systolic congestive heart failure. 2. Yyt-PK-rcavmfe elevation myocardial infarction. 3. ZORAN 4. Ischemic cardiomyopathy. 5. Malignant hypertension, Better 6. Noncompliance with medications due to financial troubles. 7. Hyperlipidemia. 8. Psoriasis. 9. CAD 10. Anemia Plan Temp HD catheter today volume off lading today continue heparin gtt per ACS protocol BP controlled, cardiology following intake and out put. Possible cardiac cath once HD catheter access established SSI Lipitor labs reviewed Monitor hemoglobin Prognosis guarded. family at bedside, all questions answered. History of Present Illness History of Present Illness sob better no fever no chills. no chest pain Vitals Vitals Vital Signs Date Time Temp Pulse Resp B/P Pulse Ox O2 Delivery O2 Flow Rate FiO2 06/02/16 08:32 153/70 06/02/16 08:00 99.0 86 20 98 Room Air 99.0 06/01/16 21:00 2.0 Physical Exam General: Alert, Oriented X3, Cooperative, moderate distress (now on NRB) Heart: Normal S1, Normal S2, Other (tele: ST, 2/6 systolci murmur ) Lungs: Clear, Other Abdomen: Soft, No tenderness Extremities: No cyanosis, No edema, Normal pulses Skin: No breakdown, No significant lesion, Other (psoriasis ) Labs LABS Laboratory Tests Test 06/01/16 14:05 06/01/16 18:19 06/01/16 18:40 06/02/16 00:28 Nasal Screen MRSA (PCR) Negative (Negative) Glucose (Fingerstick) 174mg/dL (70-99) Troponin I Quantitative 3.922ng/mL (0.000-0.055) 4.814ng/mL (0.000-0.055) Test 06/02/16 01:10 06/02/16 07:50 06/02/16 10:38 Heparin Anti-Xa Act, Unfractionated 0.20IU/mL (0.30-0.70) 0.30IU/mL (0.30-0.70) White Blood Count 6.6x10^3/uL (4.0-11.0) Red Blood Count 2.39x10^6/uL (3.50-5.40) Hemoglobin 7.3g/dL (12.0-15.5) Hematocrit 22.5% (36.0-47.0) Mean Corpuscular Volume 94fL (79-100) Mean Corpuscular Hemoglobin 31pg (25-35) Mean Corpuscular Hemoglobin Concent 33g/dL (31-37) Red Cell Distribution Width 15.3% (11.5-14.5) Platelet Count 189x10^3/uL (140-400) Neutrophils (%) (Auto) 78% (31-73) Lymphocytes (%) (Auto) 11% (24-48) Monocytes (%) (Auto) 5% (0-9) Eosinophils (%) (Auto) 5% (0-3) Basophils (%) (Auto) 1% (0-3) Neutrophils # (Auto) 5.1x10^3uL (1.8-7.7) Lymphocytes # (Auto) 0.7x10^3/uL (1.0-4.8) Monocytes # (Auto) 0.4x10^3/uL (0.0-1.1) Eosinophils # (Auto) 0.3x10^3/uL (0.0-0.7) Basophils # (Auto) 0.1x10^3/uL (0.0-0.2) Sodium Level 141mmol/L (136-145) Potassium Level 4.5mmol/L (3.5-5.1) Chloride Level 110mmol/L (98-107) Carbon Dioxide Level 20mmol/L (21-32) Anion Gap 11 (6-14) Blood Urea Nitrogen 49mg/dL (7-20) Creatinine 4.2mg/dL (0.6-1.0) Estimated GFR (Cockcroft-Gault) 10.8 Glucose Level 100mg/dL (70-99) Calcium Level 8.3mg/dL (8.5-10.1) Triglycerides Level 307mg/dL (0-150) Cholesterol Level 351mg/dL (0-200) LDL Cholesterol, Calculated 242mg/dL (0-100) VLDL Cholesterol, Calculated 61mg/dL (0-40) HDL Cholesterol 48mg/dL (40-60) Cholesterol/HDL Ratio 7.3 Glucose (Fingerstick) 95mg/dL (70-99) Assessment and Plan Assessmemt and Plan Problems Medical Problems: (1) Congestive heart failure Status: Acute (2) NSTEMI (non-ST elevated myocardial infarction) Status: Acute Problems: Comment Review of Relevant I have reviewed the following items fede (where applicable) has been applied. Labs Laboratory Tests Test 06/01/16 12:02 06/01/16 14:05 06/01/16 18:19 06/01/16 18:40 White Blood Count 8.3x10^3/uL (4.0-11.0) Red Blood Count 2.69x10^6/uL (3.50-5.40) Hemoglobin 8.1g/dL (12.0-15.5) Hematocrit 25.1% (36.0-47.0) Mean Corpuscular Volume 94fL (79-100) Mean Corpuscular Hemoglobin 30pg (25-35) Mean Corpuscular Hemoglobin Concent 32g/dL (31-37) Red Cell Distribution Width 14.9% (11.5-14.5) Platelet Count 211x10^3/uL (140-400) Neutrophils (%) (Auto) 73% (31-73) Lymphocytes (%) (Auto) 17% (24-48) Monocytes (%) (Auto) 7% (0-9) Eosinophils (%) (Auto) 3% (0-3) Basophils (%) (Auto) 1% (0-3) Neutrophils # (Auto) 6.0x10^3uL (1.8-7.7) Lymphocytes # (Auto) 1.4x10^3/uL (1.0-4.8) Monocytes # (Auto) 0.6x10^3/uL (0.0-1.1) Eosinophils # (Auto) 0.2x10^3/uL (0.0-0.7) Basophils # (Auto) 0.1x10^3/uL (0.0-0.2) Sodium Level 141mmol/L (136-145) Potassium Level 4.9mmol/L (3.5-5.1) Chloride Level 111mmol/L (98-107) Carbon Dioxide Level 19mmol/L (21-32) Anion Gap 11 (6-14) Blood Urea Nitrogen 49mg/dL (7-20) Creatinine 3.9mg/dL (0.6-1.0) Estimated GFR (Cockcroft-Gault) 11.8 BUN/Creatinine Ratio 13 (6-20) Glucose Level 185mg/dL (70-99) Calcium Level 8.0mg/dL (8.5-10.1) Total Bilirubin 0.2mg/dL (0.2-1.0) Aspartate Amino Transf (AST/SGOT) 17U/L (15-37) Alanine Aminotransferase (ALT/SGPT) 10U/L (14-59) Alkaline Phosphatase 90U/L (46-116) Troponin I Quantitative 2.073ng/mL (0.000-0.055) 3.922ng/mL (0.000-0.055) ED-Vsu-L-Type Natriuretic Peptide 91332it/mL (0-124) Total Protein 6.2g/dL (6.4-8.2) Albumin 2.6g/dL (3.4-5.0) Albumin/Globulin Ratio 0.7 (1.0-1.7) Nasal Screen MRSA (PCR) Negative (Negative) Glucose (Fingerstick) 174mg/dL (70-99) Test 06/02/16 00:28 06/02/16 01:10 06/02/16 07:50 06/02/16 10:38 Troponin I Quantitative 4.814ng/mL (0.000-0.055) Heparin Anti-Xa Act, Unfractionated 0.20IU/mL (0.30-0.70) 0.30IU/mL (0.30-0.70) White Blood Count 6.6x10^3/uL (4.0-11.0) Red Blood Count 2.39x10^6/uL (3.50-5.40) Hemoglobin 7.3g/dL (12.0-15.5) Hematocrit 22.5% (36.0-47.0) Mean Corpuscular Volume 94fL (79-100) Mean Corpuscular Hemoglobin 31pg (25-35) Mean Corpuscular Hemoglobin Concent 33g/dL (31-37) Red Cell Distribution Width 15.3% (11.5-14.5) Platelet Count 189x10^3/uL (140-400) Neutrophils (%) (Auto) 78% (31-73) Lymphocytes (%) (Auto) 11% (24-48) Monocytes (%) (Auto) 5% (0-9) Eosinophils (%) (Auto) 5% (0-3) Basophils (%) (Auto) 1% (0-3) Neutrophils # (Auto) 5.1x10^3uL (1.8-7.7) Lymphocytes # (Auto) 0.7x10^3/uL (1.0-4.8) Monocytes # (Auto) 0.4x10^3/uL (0.0-1.1) Eosinophils # (Auto) 0.3x10^3/uL (0.0-0.7) Basophils # (Auto) 0.1x10^3/uL (0.0-0.2) Sodium Level 141mmol/L (136-145) Potassium Level 4.5mmol/L (3.5-5.1) Chloride Level 110mmol/L (98-107) Carbon Dioxide Level 20mmol/L (21-32) Anion Gap 11 (6-14) Blood Urea Nitrogen 49mg/dL (7-20) Creatinine 4.2mg/dL (0.6-1.0) Estimated GFR (Cockcroft-Gault) 10.8 Glucose Level 100mg/dL (70-99) Calcium Level 8.3mg/dL (8.5-10.1) Triglycerides Level 307mg/dL (0-150) Cholesterol Level 351mg/dL (0-200) LDL Cholesterol, Calculated 242mg/dL (0-100) VLDL Cholesterol, Calculated 61mg/dL (0-40) HDL Cholesterol 48mg/dL (40-60) Cholesterol/HDL Ratio 7.3 Glucose (Fingerstick) 95mg/dL (70-99) Laboratory Tests Test 06/01/16 14:05 06/01/16 18:19 06/01/16 18:40 06/02/16 00:28 Nasal Screen MRSA (PCR) Negative (Negative) Glucose (Fingerstick) 174mg/dL (70-99) Troponin I Quantitative 3.922ng/mL (0.000-0.055) 4.814ng/mL (0.000-0.055) Test 06/02/16 01:10 06/02/16 07:50 06/02/16 10:38 Heparin Anti-Xa Act, Unfractionated 0.20IU/mL (0.30-0.70) 0.30IU/mL (0.30-0.70) White Blood Count 6.6x10^3/uL (4.0-11.0) Red Blood Count 2.39x10^6/uL (3.50-5.40) Hemoglobin 7.3g/dL (12.0-15.5) Hematocrit 22.5% (36.0-47.0) Mean Corpuscular Volume 94fL (79-100) Mean Corpuscular Hemoglobin 31pg (25-35) Mean Corpuscular Hemoglobin Concent 33g/dL (31-37) Red Cell Distribution Width 15.3% (11.5-14.5) Platelet Count 189x10^3/uL (140-400) Neutrophils (%) (Auto) 78% (31-73) Lymphocytes (%) (Auto) 11% (24-48) Monocytes (%) (Auto) 5% (0-9) Eosinophils (%) (Auto) 5% (0-3) Basophils (%) (Auto) 1% (0-3) Neutrophils # (Auto) 5.1x10^3uL (1.8-7.7) Lymphocytes # (Auto) 0.7x10^3/uL (1.0-4.8) Monocytes # (Auto) 0.4x10^3/uL (0.0-1.1) Eosinophils # (Auto) 0.3x10^3/uL (0.0-0.7) Basophils # (Auto) 0.1x10^3/uL (0.0-0.2) Sodium Level 141mmol/L (136-145) Potassium Level 4.5mmol/L (3.5-5.1) Chloride Level 110mmol/L (98-107) Carbon Dioxide Level 20mmol/L (21-32) Anion Gap 11 (6-14) Blood Urea Nitrogen 49mg/dL (7-20) Creatinine 4.2mg/dL (0.6-1.0) Estimated GFR (Cockcroft-Gault) 10.8 Glucose Level 100mg/dL (70-99) Calcium Level 8.3mg/dL (8.5-10.1) Triglycerides Level 307mg/dL (0-150) Cholesterol Level 351mg/dL (0-200) LDL Cholesterol, Calculated 242mg/dL (0-100) VLDL Cholesterol, Calculated 61mg/dL (0-40) HDL Cholesterol 48mg/dL (40-60) Cholesterol/HDL Ratio 7.3 Glucose (Fingerstick) 95mg/dL (70-99) Medications Current Medications Aspirin 324 mg 324 mg 1X ONCE PO Last administered on 06/01/16 12:59; Start at 12:45; Stop 06/01/16 at 12:48; Status DC Heparin Sodium/ Dextrose 500 ml @ 19 mls/hr CONT PRN IV SEE I/O RECORD Last administered on 06/01/16 13:03; Start 06/01/16 at 12:45 Heparin Sodium (Porcine) 1,950 unit PRN Q6HRS PRN IV FOR UFH LEVEL LESS THAN 0.2 Last administered on 06/01/16 13:01; Start 06/01/16 at 12:45 Ondansetron HCl (Zofran) 4 mg PRN Q8HRS PRN IV NAUSEA/VOMITING; Start 06/01/16 at 12:45; Stop 06/02/16 at 12:44 Morphine Sulfate 4 mg PRN Q2HR PRN IV PAIN Last administered on 06/01/16 14:03 ; Start 06/01/16 at 12:45; Stop 06/02/16 at 12:44 Nitroglycerin (Nitrostat) 0.4 mg PRN Q5MIN PRN SL CHEST PAIN Last administered on 06/01/16 14:03; Start 06/01/16 at 12:45; Stop 06/02/16 at 12:44 Amlodipine Besylate (Norvasc) 5 mg DAILYWLUN PO Last administered on 06/02/16 08:32; Start 06/01/16 at 14:00 Aspirin (Ecotrin) 81 mg DAILYWBKFT PO ; Start 06/01/16 at 14:00 Atorvastatin Calcium (Lipitor) 80 mg QHS PO Last administered on 06/01/16 20:59 ; Start 06/01/16 at 21:00 Carvedilol (Coreg) 25 mg BIDWMEALS PO Last administered on 06/02/16 08:31; Start 06/01/16 at 17:00 Clopidogrel Bisulfate (Plavix) 75 mg DAILY PO Last administered on 06/01/16 14: 28; Start 06/01/16 at 14:00; Stop 06/02/16 at 08:41; Status DC Isosorbide Mononitrate (Imdur) 30 mg DAILY PO Last administered on 06/01/16 14: 30; Start 06/01/16 at 14:00 Furosemide (Lasix) 40 mg 1X ONCE IVP Last administered on 06/01/16 14:30; Start 06/01/16 at 14:00; Stop 06/01/16 at 14:23; Status DC Furosemide 40 mg 40 mg 1X ONCE IVP Last administered on 06/01/16 14:30; Start 06/01/16 at 14:30; Stop 06/01/16 at 14:38; Status DC Nitroglycerin/ Dextrose (Nitroglycerin Drip) 250 ml @ 0 mls/hr CONT PRN IV SEE I/O RECORD Last administered on 06/01/16 15:23; Start 06/01/16 at 14:30 Acetaminophen (Tylenol) 325 mg PRN Q6HRS PRN PO MILD PAIN / TEMP; Start at 15:00 Acetaminophen/ Hydrocodone Bitart (Lortab 5/325) 1 tab PRN Q6HRS PRN PO MODERATE TO SEVERE PAIN; Start 06/01/16 at 15:00 Hydralazine HCl (Apresoline) 10 mg PRN Q4HRS PRN IVP ELEVATED BP, SEE COMMENTS ; Start 06/01/16 at 15:00 Ondansetron HCl (Zofran) 4 mg PRN Q8HRS PRN IV NAUSEA/VOMITING; Start 06/01/16 at 15:00 Albuterol Sulfate (Ventolin Neb Soln) 2.5 mg PRN Q4HRS PRN NEB SHORTNESS OF BREATH; Start 06/01/16 at 15:00 Insulin Aspart (Novolog) 0-7 UNITS TIDWMEALS SQ ; Start 06/01/16 at 17:00 Dextrose 12.5 gm PRN Q15MIN PRN IV SEE COMMENTS; Start 06/01/16 at 15:00 Info 1 each 1 each PRN DAILY PRN MC SEE COMMENTS Last administered on 2/8/17at 08:34; Start 06/01/16 at 17:00 Magnesium Sulfate/ Dextrose (Magnesium Sulfate PREMIX 2GM) 50 ml @ 25 mls/hr PRN DAILY PRN IV for Mag < 1.7 on am labs; Start 06/02/16 at 11:15 Active Scripts Active Lisinopril 20 Mg Tablet 20 Mg PO QHS Isosorbide Mononitrate Er (Isosorbide Mononitrate) 30 Mg Tab.er.24h 30 Mg PO DAILY Hydralazine Hcl 50 Mg Tablet 100 Mg PO TID Carvedilol 12.5 Mg Tablet 25 Mg PO BIDWMEALS Atorvastatin Calcium 40 Mg Tablet 80 Mg PO QHS Aspirin Ec (Aspirin) 81 Mg Tablet.dr 81 Mg PO DAILYWBKFT Amlodipine Besylate 5 Mg Tablet 5 Mg PO DAILYWLUN Reported Clopidogrel (Clopidogrel Bisulfate) 75 Mg Tablet 75 Mg PO DAILY Glyburide 5 Mg Tablet 1 Tab PO BIDWMEALS Lisinopril 20 Mg Tablet 1 Tab PO DAILY Vitals/I & O Vital Sign - Last 24 Hours 06/01/16 06/01/16 06/01/16 06/01/16 12:15 12:45 13:15 13:42 Pulse 118 102 104 B/P 175/83 193/91 212/95 156/100 Pulse Ox 99 100 100 O2 Delivery Room Air Room Air Room Air 06/01/16 06/01/16 06/01/16 06/01/16 13:50 14:00 14:00 14:03 Temp 98.6 98.6 Pulse 130 122 Resp 40 42 26 B/P 202/95 185/113 Pulse Ox 97 89 86 O2 Delivery Nasal Cannula Non-Rebreather Nasal Cannula Nasal Cannula O2 Flow Rate 2.0 15.0 2.0 2.0 06/01/16 06/01/16 06/01/16 06/01/16 14:03 14:30 14:32 15:00 Pulse 130 130 130 104 Resp 18 B/P 202/95 202/95 202/95 195/88 Pulse Ox 98 O2 Delivery Nasal Cannula O2 Flow Rate 2.0 06/01/16 06/01/16 06/01/16 06/01/16 15:10 16:00 16:00 17:00 Temp 98.7 98.7 Pulse 93 90 Resp 17 15 15 B/P 179/86 181/92 Pulse Ox 99 100 100 O2 Delivery Nasal Cannula Nasal Cannula Room Air O2 Flow Rate 2.0 2.0 2.0 06/01/16 06/01/16 06/01/16 06/01/16 18:00 18:21 19:00 19:45 Pulse 90 90 80 Resp 14 15 B/P 162/86 165/88 157/77 Pulse Ox 100 100 O2 Delivery Nasal Cannula Nasal Cannula Nasal Cannula O2 Flow Rate 2.0 2.0 2.0 06/01/16 06/01/16 06/01/16 06/01/16 20:00 21:00 22:00 23:00 Temp 98.8 98.8 Pulse 73 78 70 75 Resp 17 27 15 12 B/P 116/59 118/55 118/60 125/64 Pulse Ox 100 100 100 100 O2 Delivery Nasal Cannula Nasal Cannula Room Air Room Air O2 Flow Rate 2.0 2.0 06/01/16 06/02/16 06/02/16 06/02/16 23:55 00:00 01:00 02:00 Temp 98.6 98.6 Pulse 72 79 76 Resp 32 19 16 B/P 116/60 116/64 144/68 Pulse Ox 100 100 100 O2 Delivery Room Air Room Air Room Air Room Air 06/02/16 06/02/16 06/02/16 06/02/16 03:00 04:00 04:00 05:00 Temp 98.8 98.8 Pulse 75 73 79 Resp 23 21 23 B/P 137/64 132/60 133/61 Pulse Ox 98 98 96 O2 Delivery Room Air Room Air Room Air Room Air 06/02/16 06/02/16 06/02/16 06/02/16 06:00 07:00 07:54 08:00 Temp 99.0 99.0 Pulse 85 86 86 Resp 16 22 20 B/P 142/68 151/70 146/65 Pulse Ox 94 97 98 O2 Delivery Room Air Room Air Room Air Room Air 06/02/16 06/02/16 08:31 08:32 B/P 153/70 153/70 Intake and Output 06/01/16 06/01/16 06/02/16 15:00 23:00 07:00 Intake Total 102.02 ml 235 ml Output Total 100 ml 750 ml 1025 ml Balance -100 ml -647.98 ml -790 ml SELMA LALA MD Jun 02, 2016 12:05
[2016-06-02] MEDS ORDERED: LIDOCAINE 1% / SOD BICARB 8.4% 20 ML VIAL. IJ ONE (12:30)
[2016-06-02 12:45] LABS: INR 1.1 (0.8-1.1); PROTHROMBIN TIME PATIENT 13.5 SEC (11.7-14.0)
--- NOTE | 2016-06-02 14:11 | PDOC ---
BRIEF OPERATIVE NOTE Pre-Op Diagnosis ARF Post-Op Diagnosis same Procedure Performed Temp HD Catheter Surgeon Ashkan Anesthesia Type: Local Findings 20cm R IJ Tommy with excellent manual flows Complications No immediate CHEYANNE GREEN MD Jun 02, 2016 14:11
[2016-06-02] MEDS: ASPIRIN ENTERIC COATED 81 MG TABLET.DR. PO SCH (14:17)
[2016-06-02] MEDS: ISOSORBIDE MONONITRATE ER 30 MG TAB.ER.24H PO SCH (14:17)
[2016-06-02] MEDS: HEPARIN 25,000UTS/500ML PREMIX 500 ML IV PRN (14:45)
--- NOTE | 2016-06-02 14:49 | RAD ---
Indication assess line placement. An AP view of the chest was obtained and is compared to an exam one day earlier. Changes of congestive heart failure seen previously appears improved. There is likely some mild pulmonary vascular congestion which persists. Cardiomegaly is unchanged. A focal infiltrate is not seen. There has been interval placement of a right-sided dialysis catheter. The tip is at the SVC right atrial junction. No pneumothorax is seen. IMPRESSION: Appropriately positioned right-sided dialysis catheter. No complication seen. Slight interval improvement in the appearance of the chest
--- NOTE | 2016-06-02 14:55 | RAD ---
Procedure: Temporary hemodialysis catheter placement at the bedside. Clinical Indication: 61-year-old with acute renal failure requiring hemodialysis Sedation: Local anesthesia only Antibiotics: None Fluoro Time: Not applicable Contrast: None Sterility: All elements of maximal sterile barrier technique including the use of a cap, mask, sterile gown, sterile gloves, large sterile sheet, appropriate hand hygiene, and 2% chlorhexidine for cutaneous antisepsis (or acceptable alternative antiseptic per current guidelines) were followed for this procedure. Consent: The procedure was explained in its entirety to the patient or the patients designated sales representative malt liquors by a member of the treatment team, including a discussion of the risks, benefits and commonly accepted alternatives to the procedure, as well as the expected consequences of no therapy whatsoever. Discussion of the risks included, but was not limited to, those that are most frequent and those that are rare but possibly severe or life-threatening, as well as the possibility of unforeseen complications. Technique and Findings: Following informed consent, the patient was prepped and draped in the usual sterile fashion. Ultrasound interrogation of the right neck revealed patency and compressibility of the right internal jugular vein. A 21-gauge micropuncture needle was used to gain access to this vein after 1% Lidocaine was used to achieve local anesthesia. A hardcopy ultrasound image was recorded. The needle was exchanged over a wire for serial dilators followed by a 20 cm Schon temporary hemodialysis catheter which was deployed in the expected location of the mid right atrium. The catheter flow rates were assessed manually and found to be excellent. The catheter was then flushed, packed with Heparin, capped, and sutured to the skin. Chest x-ray was then obtained to assess line position. Complications: No immediate Impression: 1. Ultrasound guided placement of a temporary hemodialysis catheter which exhibits excellent manual flow rates as described.
--- NOTE | 2016-06-02 15:53 | PDOC ---
NABILA TOLEDO CHEMISTS 06/02/16 1553: CARDIO Progress Notes Date and Time Date of Service 06/02/16 Time of Evaluation 0945 Subjective Subjective: No Chest Pain, No Palpitations, No Dizziness, Other (comfortable, mild SOA ) Vitals Vitals Vital Signs Date Time Temp Pulse Resp B/P Pulse Ox O2 Delivery O2 Flow Rate FiO2 06/02/16 15:00 85 20 148/61 98 Room Air 06/02/16 09:00 2.0 06/02/16 08:00 99.0 99.0 Weight Weight [ ] Input and Output Intake and Output Intake and Output 06/02/16 07:00 Intake Total 337.02 ml Output Total 1875 ml Balance -1537.98 ml Intake IV Total 337.02 ml Output Urine Total 1875 ml Laboratory Labs Laboratory Tests Test 06/01/16 18:19 06/01/16 18:40 06/02/16 00:28 06/02/16 01:10 Glucose (Fingerstick) 174mg/dL (70-99) Troponin I Quantitative 3.922ng/mL (0.000-0.055) 4.814ng/mL (0.000-0.055) Heparin Anti-Xa Act, Unfractionated 0.20IU/mL (0.30-0.70) Test 06/02/16 07:50 06/02/16 10:38 06/02/16 11:40 06/02/16 14:12 White Blood Count 6.6x10^3/uL (4.0-11.0) Red Blood Count 2.39x10^6/uL (3.50-5.40) Hemoglobin 7.3g/dL (12.0-15.5) Hematocrit 22.5% (36.0-47.0) Mean Corpuscular Volume 94fL (79-100) Mean Corpuscular Hemoglobin 31pg (25-35) Mean Corpuscular Hemoglobin Concent 33g/dL (31-37) Red Cell Distribution Width 15.3% (11.5-14.5) Platelet Count 189x10^3/uL (140-400) Neutrophils (%) (Auto) 78% (31-73) Lymphocytes (%) (Auto) 11% (24-48) Monocytes (%) (Auto) 5% (0-9) Eosinophils (%) (Auto) 5% (0-3) Basophils (%) (Auto) 1% (0-3) Neutrophils # (Auto) 5.1x10^3uL (1.8-7.7) Lymphocytes # (Auto) 0.7x10^3/uL (1.0-4.8) Monocytes # (Auto) 0.4x10^3/uL (0.0-1.1) Eosinophils # (Auto) 0.3x10^3/uL (0.0-0.7) Basophils # (Auto) 0.1x10^3/uL (0.0-0.2) Heparin Anti-Xa Act, Unfractionated 0.30IU/mL (0.30-0.70) Sodium Level 141mmol/L (136-145) Potassium Level 4.5mmol/L (3.5-5.1) Chloride Level 110mmol/L (98-107) Carbon Dioxide Level 20mmol/L (21-32) Anion Gap 11 (6-14) Blood Urea Nitrogen 49mg/dL (7-20) Creatinine 4.2mg/dL (0.6-1.0) Estimated GFR (Cockcroft-Gault) 10.8 Glucose Level 100mg/dL (70-99) Calcium Level 8.3mg/dL (8.5-10.1) Triglycerides Level 307mg/dL (0-150) Cholesterol Level 351mg/dL (0-200) LDL Cholesterol, Calculated 242mg/dL (0-100) VLDL Cholesterol, Calculated 61mg/dL (0-40) HDL Cholesterol 48mg/dL (40-60) Cholesterol/HDL Ratio 7.3 Glucose (Fingerstick) 95mg/dL (70-99) 103mg/dL (70-99) Prothrombin Time 13.5SEC (11.7-14.0) Prothromb Time International Ratio 1.1 (0.8-1.1) Activated Partial Thromboplast Time 95SEC (24-38) Test 06/02/16 15:05 Heparin Anti-Xa Act, Unfractionated 0.38IU/mL (0.30-0.70) Physical Exam HEENT: Neck Supple W Full Motion Chest: Symmetric LUNGS: Other (bibasilar crackles ) Heart: S1S2, RRR, other (2/6 systolic murmur ) Abdomen: Soft N/T Extremities: 2+ Dorsalis Pedis, No Edema Neurology: alert, oriented, follow commands Assessment Assessment 1. Acute on chronic combined systolic and diastolic HF 2. NSTEMI 3. CAD 4. Ischemic cardiomyopathy; LVEF 25% 5. Malignant HTN 6. HLP 7. ZORAN with CKD, HD initiated 8. Noncompliance secondary to financial constraints. Recommendations Maintain BP control Add REYNALDO for HF optimization- d/w renal Fluid offloading in HD per nephrology Titrate off nitro. Add hydralazine, continue Imdur. Supportive care NPO p MN. Will monitor overnight and plan for LHC in am JITENDRA COBURN MD 06/02/16 1806: CARDIO Progress Notes Plan Plan Patient seen and examined. Agree with above nurse practitioner note. No acute events overnight. Doing well this morning. Plan for dialysis later today. On exam she appears stable with normal breathing rates. We will plan for a heart catheterization tomorrow in light of her continually elevated troponin. NABILA TOLEDO APRN Jun 02, 2016 15:53 JITENDRA COBURN MD Jun 02, 2016 18:06
[2016-06-02] MEDS: LISINOPRIL 20 MG TABLET PO SCH (16:42)
[2016-06-02] MEDS ORDERED: IV NORMAL SALINE 1000ML BAG 1,000 ML IV PRN ×2 (18:28)
[2016-06-02] MEDS ORDERED: 0.9 % SODIUM CHLORIDE 10 ML DISP.SYRIN. IV PRN ×2 (18:30)
[2016-06-02] MEDS ORDERED: DIALYSIS PATIENT. MC PRN (18:30)
[2016-06-02] MEDS ORDERED: DIPHENHYDRAMINE 50 MG/ML VIAL IV PRN ×2 (18:30)
[2016-06-02 22:10] LABS: HEP A IGM ABDY Negative (Negative); HEP B SURFACE ABDY Non Reactive (.)
[2016-06-02] MEDS: HYDRALAZINE 50 MG TABLET PO SCH (22:15)
[2016-06-02] MEDS: ATORVASTATIN CALCIUM 40 MG TABLET. PO SCH (22:16)
[2016-06-03] VITALS (24 sets, daily range): BP systolic 113–159; BP diastolic 49–67
[2016-06-03 04:18] LABS: PTH INTACT 192 pg/mL (15-65)
[2016-06-03 07:03] LABS: BASO % 0 % (0-3); EOS % 2 % (0-3); HEMATOCRIT 21.1 % (36.0-47.0); LYMPH # 1.2 x10^3/uL (1.0-4.8); LYMPH % 19 % (24-48); MEAN CORPUSCULAR HEMOGLOBIN 30 pg (25-35); MEAN CORPUSCULAR HGB CONC 33 g/dL (31-37); MEAN CORPUSCULAR VOLUME 91 fL (79-100); MONO % 6 % (0-9); NEUT % 73 % (31-73); PLATELET COUNT 169 x10^3/uL (140-400); RED BLOOD COUNT 2.31 x10^6/uL (3.50-5.40); RED CELL DISTRIBUTION WIDTH 14.5 % (11.5-14.5); WHITE BLOOD COUNT 6.4 x10^3/uL (4.0-11.0)
[2016-06-03 07:17] LABS: ALBUMIN 2.1 g/dL (3.4-5.0); CALCIUM 7.5 mg/dL (8.5-10.1); CREATININE 2.9 mg/dL (0.6-1.0); GFR 16.6; POTASSIUM 3.7 mmol/L (3.5-5.1)
[2016-06-03] MEDS: INSULIN ASPART 300 UNITS/3 ML INSULN.PEN SQ SCH ×3 (08:00→18:08)
[2016-06-03] MEDS: LISINOPRIL 20 MG TABLET PO SCH (08:48)
[2016-06-03] MEDS: ASPIRIN ENTERIC COATED 81 MG TABLET.DR. PO SCH (08:48)
[2016-06-03] MEDS: HYDRALAZINE 50 MG TABLET PO SCH ×2 (08:48→20:48)
[2016-06-03] MEDS: CARVEDILOL 12.5 MG TABLET PO SCH ×2 (08:49→18:04)
[2016-06-03] MEDS: ISOSORBIDE MONONITRATE ER 30 MG TAB.ER.24H PO SCH (08:49)
[2016-06-03] MEDS: ANTI-COAG MONITOR BY PHARMACY. MC PRN (09:38)
[2016-06-03] MEDS ORDERED: DIALYSIS PATIENT. MC PRN ×2 (10:30)
--- NOTE | 2016-06-03 11:41 | PDOC ---
Dialysis Progress Note Dialysis Note Dialysis Note Seen on Hemodialysis, tolerating treatment Okay so far Vitals on Hemodialysis: 125/54 68 16 afeb General Appearance: Awake: Alert Oriented x 2-3 Neck: No JVD or JVP Chest: CTA Dionte Heart: S1 S2 Abdomen - Soft NTND Extremities - No Edema ESRD: Dialysis as below F 180 NR 3.0 Hrs 3 K 2.5 Ca 140 Na 30 HC03 Qb 350 + Qd 500+ Heparin on gtt Units Uf none Kgs or to dry weight as tolerated Pt refused Transfusion of PRCBC's May give 25-50 gms of 25% Albumin or NS if needed to maintain Hemodynamic stability Treatment plan reviewed and discussed with assistant store leader Vitals Vital Signs Vital Signs Date Time Temp Pulse Resp B/P Pulse Ox O2 Delivery O2 Flow Rate FiO2 06/03/16 11:00 74 17 119/49 96 Room Air 06/03/16 08:00 100.2 100.2 06/02/16 09:00 2.0 Labs Last Labs Laboratory Tests Test 06/01/16 12:02 06/01/16 14:05 06/01/16 18:19 06/01/16 18:40 White Blood Count 8.3x10^3/uL (4.0-11.0) Red Blood Count 2.69x10^6/uL (3.50-5.40) Hemoglobin 8.1g/dL (12.0-15.5) Hematocrit 25.1% (36.0-47.0) Mean Corpuscular Volume 94fL (79-100) Mean Corpuscular Hemoglobin 30pg (25-35) Mean Corpuscular Hemoglobin Concent 32g/dL (31-37) Red Cell Distribution Width 14.9% (11.5-14.5) Platelet Count 211x10^3/uL (140-400) Neutrophils (%) (Auto) 73% (31-73) Lymphocytes (%) (Auto) 17% (24-48) Monocytes (%) (Auto) 7% (0-9) Eosinophils (%) (Auto) 3% (0-3) Basophils (%) (Auto) 1% (0-3) Neutrophils # (Auto) 6.0x10^3uL (1.8-7.7) Lymphocytes # (Auto) 1.4x10^3/uL (1.0-4.8) Monocytes # (Auto) 0.6x10^3/uL (0.0-1.1) Eosinophils # (Auto) 0.2x10^3/uL (0.0-0.7) Basophils # (Auto) 0.1x10^3/uL (0.0-0.2) Sodium Level 141mmol/L (136-145) Potassium Level 4.9mmol/L (3.5-5.1) Chloride Level 111mmol/L (98-107) Carbon Dioxide Level 19mmol/L (21-32) Anion Gap 11 (6-14) Blood Urea Nitrogen 49mg/dL (7-20) Creatinine 3.9mg/dL (0.6-1.0) Estimated GFR (Cockcroft-Gault) 11.8 BUN/Creatinine Ratio 13 (6-20) Glucose Level 185mg/dL (70-99) Calcium Level 8.0mg/dL (8.5-10.1) Total Bilirubin 0.2mg/dL (0.2-1.0) Aspartate Amino Transf (AST/SGOT) 17U/L (15-37) Alanine Aminotransferase (ALT/SGPT) 10U/L (14-59) Alkaline Phosphatase 90U/L (46-116) Troponin I Quantitative 2.073ng/mL (0.000-0.055) 3.922ng/mL (0.000-0.055) QK-Yrc-F-Type Natriuretic Peptide 84911be/mL (0-124) Total Protein 6.2g/dL (6.4-8.2) Albumin 2.6g/dL (3.4-5.0) Albumin/Globulin Ratio 0.7 (1.0-1.7) Nasal Screen MRSA (PCR) Negative (Negative) Glucose (Fingerstick) 174mg/dL (70-99) Test 06/02/16 00:28 06/02/16 01:10 06/02/16 07:50 06/02/16 10:38 Troponin I Quantitative 4.814ng/mL (0.000-0.055) Heparin Anti-Xa Act, Unfractionated 0.20IU/mL (0.30-0.70) 0.30IU/mL (0.30-0.70) White Blood Count 6.6x10^3/uL (4.0-11.0) Red Blood Count 2.39x10^6/uL (3.50-5.40) Hemoglobin 7.3g/dL (12.0-15.5) Hematocrit 22.5% (36.0-47.0) Mean Corpuscular Volume 94fL (79-100) Mean Corpuscular Hemoglobin 31pg (25-35) Mean Corpuscular Hemoglobin Concent 33g/dL (31-37) Red Cell Distribution Width 15.3% (11.5-14.5) Platelet Count 189x10^3/uL (140-400) Neutrophils (%) (Auto) 78% (31-73) Lymphocytes (%) (Auto) 11% (24-48) Monocytes (%) (Auto) 5% (0-9) Eosinophils (%) (Auto) 5% (0-3) Basophils (%) (Auto) 1% (0-3) Neutrophils # (Auto) 5.1x10^3uL (1.8-7.7) Lymphocytes # (Auto) 0.7x10^3/uL (1.0-4.8) Monocytes # (Auto) 0.4x10^3/uL (0.0-1.1) Eosinophils # (Auto) 0.3x10^3/uL (0.0-0.7) Basophils # (Auto) 0.1x10^3/uL (0.0-0.2) Sodium Level 141mmol/L (136-145) Potassium Level 4.5mmol/L (3.5-5.1) Chloride Level 110mmol/L (98-107) Carbon Dioxide Level 20mmol/L (21-32) Anion Gap 11 (6-14) Blood Urea Nitrogen 49mg/dL (7-20) Creatinine 4.2mg/dL (0.6-1.0) Estimated GFR (Cockcroft-Gault) 10.8 Glucose Level 100mg/dL (70-99) Calcium Level 8.3mg/dL (8.5-10.1) Triglycerides Level 307mg/dL (0-150) Cholesterol Level 351mg/dL (0-200) LDL Cholesterol, Calculated 242mg/dL (0-100) VLDL Cholesterol, Calculated 61mg/dL (0-40) HDL Cholesterol 48mg/dL (40-60) Cholesterol/HDL Ratio 7.3 Glucose (Fingerstick) 95mg/dL (70-99) Test 06/02/16 11:40 06/02/16 14:12 06/02/16 15:05 06/03/16 06:24 Prothrombin Time 13.5SEC (11.7-14.0) Prothromb Time International Ratio 1.1 (0.8-1.1) Activated Partial Thromboplast Time 95SEC (24-38) Estimated GFR (Non- 11 (>59) EGFR 13 (>59) PTH (Intact) Specimen Description Comment (.) Parathyroid Hormone (Intact) 192pg/mL (15-65) Calcium (PTH Intact) 8.0mg/dL (8.7-10.2) Creatinine (PTH Intact) 4.14mg/dL (0.57-1.00) Phosphorus (PTH Intact) 5.4mg/dL (2.5-4.5) Hepatitis A IgM Antibody Negative (Negative) Hepatitis B Surface Antigen Negative (Negative) Hepatitis B Surface Antibody Non reactive (.) Hepatitis B Core Total Antibody Negative (Negative) Hepatitis B Core IgM Antibody Negative (Negative) Hepatitis C Antibody <0.1s/co ratio (0.0-0.9) Glucose (Fingerstick) 103mg/dL (70-99) Heparin Anti-Xa Act, Unfractionated 0.38IU/mL (0.30-0.70) White Blood Count 6.4x10^3/uL (4.0-11.0) Red Blood Count 2.31x10^6/uL (3.50-5.40) Hemoglobin 7.0g/dL (12.0-15.5) Hematocrit 21.1% (36.0-47.0) Mean Corpuscular Volume 91fL (79-100) Mean Corpuscular Hemoglobin 30pg (25-35) Mean Corpuscular Hemoglobin Concent 33g/dL (31-37) Red Cell Distribution Width 14.5% (11.5-14.5) Platelet Count 169x10^3/uL (140-400) Neutrophils (%) (Auto) 73% (31-73) Lymphocytes (%) (Auto) 19% (24-48) Monocytes (%) (Auto) 6% (0-9) Eosinophils (%) (Auto) 2% (0-3) Basophils (%) (Auto) 0% (0-3) Neutrophils # (Auto) 4.6x10^3uL (1.8-7.7) Lymphocytes # (Auto) 1.2x10^3/uL (1.0-4.8) Monocytes # (Auto) 0.4x10^3/uL (0.0-1.1) Eosinophils # (Auto) 0.1x10^3/uL (0.0-0.7) Basophils # (Auto) 0.0x10^3/uL (0.0-0.2) Sodium Level 139mmol/L (136-145) Potassium Level 3.7mmol/L (3.5-5.1) Chloride Level 102mmol/L (98-107) Carbon Dioxide Level 30mmol/L (21-32) Anion Gap 7 (6-14) Blood Urea Nitrogen 23mg/dL (7-20) Creatinine 2.9mg/dL (0.6-1.0) Estimated GFR (Cockcroft-Gault) 16.6 Glucose Level 164mg/dL (70-99) Calcium Level 7.5mg/dL (8.5-10.1) Phosphorus Level 3.0mg/dL (2.6-4.7) Magnesium Level 1.8mg/dL (1.8-2.4) Albumin 2.1g/dL (3.4-5.0) Test 06/03/16 08:29 Glucose (Fingerstick) 139mg/dL (70-99) Laboratory Tests Test 06/02/16 11:40 06/02/16 14:12 06/02/16 15:05 06/03/16 06:24 Prothrombin Time 13.5SEC (11.7-14.0) Prothromb Time International Ratio 1.1 (0.8-1.1) Activated Partial Thromboplast Time 95SEC (24-38) Estimated GFR (Non- 11 (>59) EGFR 13 (>59) PTH (Intact) Specimen Description Comment (.) Parathyroid Hormone (Intact) 192pg/mL (15-65) Calcium (PTH Intact) 8.0mg/dL (8.7-10.2) Creatinine (PTH Intact) 4.14mg/dL (0.57-1.00) Phosphorus (PTH Intact) 5.4mg/dL (2.5-4.5) Hepatitis A IgM Antibody Negative (Negative) Hepatitis B Surface Antigen Negative (Negative) Hepatitis B Surface Antibody Non reactive (.) Hepatitis B Core Total Antibody Negative (Negative) Hepatitis B Core IgM Antibody Negative (Negative) Hepatitis C Antibody <0.1s/co ratio (0.0-0.9) Glucose (Fingerstick) 103mg/dL (70-99) Heparin Anti-Xa Act, Unfractionated 0.38IU/mL (0.30-0.70) White Blood Count 6.4x10^3/uL (4.0-11.0) Red Blood Count 2.31x10^6/uL (3.50-5.40) Hemoglobin 7.0g/dL (12.0-15.5) Hematocrit 21.1% (36.0-47.0) Mean Corpuscular Volume 91fL (79-100) Mean Corpuscular Hemoglobin 30pg (25-35) Mean Corpuscular Hemoglobin Concent 33g/dL (31-37) Red Cell Distribution Width 14.5% (11.5-14.5) Platelet Count 169x10^3/uL (140-400) Neutrophils (%) (Auto) 73% (31-73) Lymphocytes (%) (Auto) 19% (24-48) Monocytes (%) (Auto) 6% (0-9) Eosinophils (%) (Auto) 2% (0-3) Basophils (%) (Auto) 0% (0-3) Neutrophils # (Auto) 4.6x10^3uL (1.8-7.7) Lymphocytes # (Auto) 1.2x10^3/uL (1.0-4.8) Monocytes # (Auto) 0.4x10^3/uL (0.0-1.1) Eosinophils # (Auto) 0.1x10^3/uL (0.0-0.7) Basophils # (Auto) 0.0x10^3/uL (0.0-0.2) Sodium Level 139mmol/L (136-145) Potassium Level 3.7mmol/L (3.5-5.1) Chloride Level 102mmol/L (98-107) Carbon Dioxide Level 30mmol/L (21-32) Anion Gap 7 (6-14) Blood Urea Nitrogen 23mg/dL (7-20) Creatinine 2.9mg/dL (0.6-1.0) Estimated GFR (Cockcroft-Gault) 16.6 Glucose Level 164mg/dL (70-99) Calcium Level 7.5mg/dL (8.5-10.1) Phosphorus Level 3.0mg/dL (2.6-4.7) Magnesium Level 1.8mg/dL (1.8-2.4) Albumin 2.1g/dL (3.4-5.0) Test 06/03/16 08:29 Glucose (Fingerstick) 139mg/dL (70-99) Assessment Assessment Problems Medical Problems: (1) Congestive heart failure Status: Acute (2) NSTEMI (non-ST elevated myocardial infarction) Status: Acute Problems: Plan Plan of Care Problems Medical Problems: (1) Congestive heart failure Status: Acute (2) NSTEMI (non-ST elevated myocardial infarction) Status: Acute PALMA HERNANDEZ MD Jun 03, 2016 11:41
[2016-06-03 12:03] LABS: % SAT IRON 11 % (15-34); IRON,SERUM 26 ug/dL (50-170)
--- NOTE | 2016-06-03 14:18 | CONS ---
DATE OF CONSULTATION: PRIMARY PHYSICIAN: Dr. Falcon. REASON FOR CONSULTATION: CKD stage IV/V possible acute renal failure/ESRD. HISTORY OF PRESENT ILLNESS: The patient is a 61-year-old female whose daughter translates for me. Her is on dialysis. The patient is known to have CKD stage IV with baseline creatinine running approximately 3.4 on most recent check. Her creatinine clearance on a 24-hour urine was slightly above 20. She had no uremic symptoms on her last check. Now, she presents with all of the following. Inability to afford her medications and hence not taking, severe hypertension, some chest pain, worsening renal function, positive troponins, anorexia, dyscrasia. Because of her spend down, she was unable to afford the medications. She is now admitted to the ICU. Given her non-STEMI, it was felt that she would need an emergent catheterization. Clinically, she improved and hence this was held off until her renal function and status could be further verified. Her EF did drop to 25% from previous. She is known to have previously abnormal coronary arteries, which were not amenable to intervention at that time. No pericardial effusion is noted. After a long discussion, they are willing to proceed with initiation of dialysis and arrangements for the same will be made. PALMA HERNANDEZ MD DR: JENNIFER/cris JOB#: [id number] / [id number]
--- NOTE | 2016-06-03 15:31 | PDOC ---
NABILA TOLEDO MANAGER UROLOGY 06/03/16 1531: CARDIO Progress Notes Date and Time Date of Service 06/03/16 Time of Evaluation 1250 Subjective Subjective: No Chest Pain, No shortness of breath, No Palpitations, No Dizziness, Other (feeling better, weak) Vitals Vitals Vital Signs Date Time Temp Pulse Resp B/P Pulse Ox O2 Delivery O2 Flow Rate FiO2 06/03/16 15:00 80 29 133/54 99 Room Air 06/03/16 12:00 98.6 98.6 06/02/16 09:00 2.0 Weight Weight [ ] Input and Output Intake and Output Intake and Output 06/03/16 07:00 Intake Total 730.6 ml Output Total 1200 ml Balance -469.4 ml Intake Oral 200 ml IV Total 530.6 ml Output Urine Total 1200 ml Laboratory Labs Laboratory Tests Test 06/03/16 06:24 06/03/16 08:29 06/03/16 13:46 White Blood Count 6.4x10^3/uL (4.0-11.0) Red Blood Count 2.31x10^6/uL (3.50-5.40) Hemoglobin 7.0g/dL (12.0-15.5) Hematocrit 21.1% (36.0-47.0) Mean Corpuscular Volume 91fL (79-100) Mean Corpuscular Hemoglobin 30pg (25-35) Mean Corpuscular Hemoglobin Concent 33g/dL (31-37) Red Cell Distribution Width 14.5% (11.5-14.5) Platelet Count 169x10^3/uL (140-400) Neutrophils (%) (Auto) 73% (31-73) Lymphocytes (%) (Auto) 19% (24-48) Monocytes (%) (Auto) 6% (0-9) Eosinophils (%) (Auto) 2% (0-3) Basophils (%) (Auto) 0% (0-3) Neutrophils # (Auto) 4.6x10^3uL (1.8-7.7) Lymphocytes # (Auto) 1.2x10^3/uL (1.0-4.8) Monocytes # (Auto) 0.4x10^3/uL (0.0-1.1) Eosinophils # (Auto) 0.1x10^3/uL (0.0-0.7) Basophils # (Auto) 0.0x10^3/uL (0.0-0.2) Reticulocyte Count (auto) 1.9% (0.5-2.5) Sodium Level 139mmol/L (136-145) Potassium Level 3.7mmol/L (3.5-5.1) Chloride Level 102mmol/L (98-107) Carbon Dioxide Level 30mmol/L (21-32) Anion Gap 7 (6-14) Blood Urea Nitrogen 23mg/dL (7-20) Creatinine 2.9mg/dL (0.6-1.0) Estimated GFR (Cockcroft-Gault) 16.6 Glucose Level 164mg/dL (70-99) Calcium Level 7.5mg/dL (8.5-10.1) Phosphorus Level 3.0mg/dL (2.6-4.7) Magnesium Level 1.8mg/dL (1.8-2.4) Iron Level 26ug/dL (50-170) Total Iron Binding Capacity 237ug/dL (250-450) Iron Saturation 11% (15-34) Ferritin 62ng/mL (8-252) Albumin 2.1g/dL (3.4-5.0) Glucose (Fingerstick) 139mg/dL (70-99) 99mg/dL (70-99) Physical Exam HEENT: Neck Supple W Full Motion Chest: Symmetric LUNGS: Other (diminished bases ) Heart: S1S2, RRR, other (2/6 systolic murmur ) Abdomen: Soft N/T Extremities: 2+ Dorsalis Pedis, No Edema Neurology: alert, oriented, follow commands Assessment Assessment 1. Acute on chronic combined systolic and diastolic HF 2. NSTEMI 3. CAD 4. Ischemic cardiomyopathy; LVEF 25% 5. Malignant HTN 6. HLP 7. ZORAN with CKD, HD initiated 8. Noncompliance secondary to financial constraints. Recommendations D/c heparin. Resume ASA and Plavix Fluid offloading in HD per nephrology Hgb 7.0 today. Wishes for no blood products Significant improvement in symptoms. CP free. SOA resolved. Will manage medically for now unless patient becomes symptomatic. Continue supportive care JITENDRA COBURN MD 06/03/16 [id number]: CARDIO Progress Notes Plan Plan Pt. seen and examined. Agree with above CYBER FORENS[employer] ANALYST note. No acute events overnight. Patient with anemia after initiation of HD Given that she is doing well on2L NC, cp free and due to risk of bleeding with PCI, will defer for now. If in the future she has CP, could consider PCI, for now treat with asa, plavix. Anemia w/u per PCP. Will follow along. NABILA TOLEDO APRN Jun 03, 2016 15:31 JITENDRA COBURN MD Jun 03, 2016 23:16
[2016-06-03] MEDS: CLOPIDOGREL BISULFATE 75 MG TABLET PO SCH (18:05)
[2016-06-03] MEDS: DARBEPOETIN ALFA 60 MCG/0.3 ML DISP.SYRIN. SQ SCH (20:48)
[2016-06-03] MEDS: ATORVASTATIN CALCIUM 40 MG TABLET. PO SCH (20:48)
--- NOTE | 2016-06-03 21:14 | PDOC ---
PROGRESS NOTES Chief Complaint Chief Complaint cc: sob A//P 1. Acute on chronic systolic congestive heart failure. 2. Bkc-AI-mwuneaj elevation myocardial infarction. 3. ZORAN 4. Ischemic cardiomyopathy. 5. Malignant hypertension, Better 6. Anemia 7. Hyperlipidemia. 8. Psoriasis. 9. CAD 10. Anemia Plan Temp HD catheter and HD per neprology pt declined to have blood transfusions continue heparin gtt per ACS protocol BP controlled, cardiology following intake and out put. Cardiac cath pericardiology SSI Lipitor labs reviewed Monitor hemoglobin Prognosis guarded. family at bedside, all questions answered. History of Present Illness History of Present Illness sob better no fever no chills. no chest pain Vitals Vitals Vital Signs Date Time Temp Pulse Resp B/P Pulse Ox O2 Delivery O2 Flow Rate FiO2 06/03/16 20:48 79 116/53 06/03/16 20:00 Room Air 06/03/16 20:00 99.3 20 93 99.3 06/02/16 09:00 2.0 Physical Exam General: Alert, Oriented X3, Cooperative, moderate distress (now on NRB) Heart: Normal S1, Normal S2, Other (tele: ST, 2/6 systolci murmur ) Lungs: Clear, Other Abdomen: Soft, No tenderness Extremities: No cyanosis, No edema, Normal pulses Skin: No breakdown, No significant lesion, Other (psoriasis ) Labs LABS Laboratory Tests Test 06/03/16 06:24 06/03/16 08:29 06/03/16 13:46 06/03/16 17:59 White Blood Count 6.4x10^3/uL (4.0-11.0) Red Blood Count 2.31x10^6/uL (3.50-5.40) Hemoglobin 7.0g/dL (12.0-15.5) Hematocrit 21.1% (36.0-47.0) Mean Corpuscular Volume 91fL (79-100) Mean Corpuscular Hemoglobin 30pg (25-35) Mean Corpuscular Hemoglobin Concent 33g/dL (31-37) Red Cell Distribution Width 14.5% (11.5-14.5) Platelet Count 169x10^3/uL (140-400) Neutrophils (%) (Auto) 73% (31-73) Lymphocytes (%) (Auto) 19% (24-48) Monocytes (%) (Auto) 6% (0-9) Eosinophils (%) (Auto) 2% (0-3) Basophils (%) (Auto) 0% (0-3) Neutrophils # (Auto) 4.6x10^3uL (1.8-7.7) Lymphocytes # (Auto) 1.2x10^3/uL (1.0-4.8) Monocytes # (Auto) 0.4x10^3/uL (0.0-1.1) Eosinophils # (Auto) 0.1x10^3/uL (0.0-0.7) Basophils # (Auto) 0.0x10^3/uL (0.0-0.2) Reticulocyte Count (auto) 1.9% (0.5-2.5) Sodium Level 139mmol/L (136-145) Potassium Level 3.7mmol/L (3.5-5.1) Chloride Level 102mmol/L (98-107) Carbon Dioxide Level 30mmol/L (21-32) Anion Gap 7 (6-14) Blood Urea Nitrogen 23mg/dL (7-20) Creatinine 2.9mg/dL (0.6-1.0) Estimated GFR (Cockcroft-Gault) 16.6 Glucose Level 164mg/dL (70-99) Calcium Level 7.5mg/dL (8.5-10.1) Phosphorus Level 3.0mg/dL (2.6-4.7) Magnesium Level 1.8mg/dL (1.8-2.4) Iron Level 26ug/dL (50-170) Total Iron Binding Capacity 237ug/dL (250-450) Iron Saturation 11% (15-34) Ferritin 62ng/mL (8-252) Albumin 2.1g/dL (3.4-5.0) Vitamin B12 Level 286pg/mL (211-946) Glucose (Fingerstick) 139mg/dL (70-99) 99mg/dL (70-99) 170mg/dL (70-99) Assessment and Plan Assessmemt and Plan Problems Medical Problems: (1) Congestive heart failure Status: Acute (2) NSTEMI (non-ST elevated myocardial infarction) Status: Acute Problems: Comment Review of Relevant I have reviewed the following items fede (where applicable) has been applied. Labs Laboratory Tests Test 06/02/16 00:28 06/02/16 01:10 06/02/16 07:50 06/02/16 10:38 Troponin I Quantitative 4.814ng/mL (0.000-0.055) Heparin Anti-Xa Act, Unfractionated 0.20IU/mL (0.30-0.70) 0.30IU/mL (0.30-0.70) White Blood Count 6.6x10^3/uL (4.0-11.0) Red Blood Count 2.39x10^6/uL (3.50-5.40) Hemoglobin 7.3g/dL (12.0-15.5) Hematocrit 22.5% (36.0-47.0) Mean Corpuscular Volume 94fL (79-100) Mean Corpuscular Hemoglobin 31pg (25-35) Mean Corpuscular Hemoglobin Concent 33g/dL (31-37) Red Cell Distribution Width 15.3% (11.5-14.5) Platelet Count 189x10^3/uL (140-400) Neutrophils (%) (Auto) 78% (31-73) Lymphocytes (%) (Auto) 11% (24-48) Monocytes (%) (Auto) 5% (0-9) Eosinophils (%) (Auto) 5% (0-3) Basophils (%) (Auto) 1% (0-3) Neutrophils # (Auto) 5.1x10^3uL (1.8-7.7) Lymphocytes # (Auto) 0.7x10^3/uL (1.0-4.8) Monocytes # (Auto) 0.4x10^3/uL (0.0-1.1) Eosinophils # (Auto) 0.3x10^3/uL (0.0-0.7) Basophils # (Auto) 0.1x10^3/uL (0.0-0.2) Sodium Level 141mmol/L (136-145) Potassium Level 4.5mmol/L (3.5-5.1) Chloride Level 110mmol/L (98-107) Carbon Dioxide Level 20mmol/L (21-32) Anion Gap 11 (6-14) Blood Urea Nitrogen 49mg/dL (7-20) Creatinine 4.2mg/dL (0.6-1.0) Estimated GFR (Cockcroft-Gault) 10.8 Glucose Level 100mg/dL (70-99) Calcium Level 8.3mg/dL (8.5-10.1) Triglycerides Level 307mg/dL (0-150) Cholesterol Level 351mg/dL (0-200) LDL Cholesterol, Calculated 242mg/dL (0-100) VLDL Cholesterol, Calculated 61mg/dL (0-40) HDL Cholesterol 48mg/dL (40-60) Cholesterol/HDL Ratio 7.3 Glucose (Fingerstick) 95mg/dL (70-99) Test 06/02/16 11:40 06/02/16 14:12 06/02/16 15:05 06/03/16 06:24 Prothrombin Time 13.5SEC (11.7-14.0) Prothromb Time International Ratio 1.1 (0.8-1.1) Activated Partial Thromboplast Time 95SEC (24-38) Estimated GFR (Non- 11 (>59) EGFR 13 (>59) PTH (Intact) Specimen Description Comment (.) Parathyroid Hormone (Intact) 192pg/mL (15-65) Calcium (PTH Intact) 8.0mg/dL (8.7-10.2) Creatinine (PTH Intact) 4.14mg/dL (0.57-1.00) Phosphorus (PTH Intact) 5.4mg/dL (2.5-4.5) Hepatitis A IgM Antibody Negative (Negative) Hepatitis B Surface Antigen Negative (Negative) Hepatitis B Surface Antibody Non reactive (.) Hepatitis B Core Total Antibody Negative (Negative) Hepatitis B Core IgM Antibody Negative (Negative) Hepatitis C Antibody <0.1s/co ratio (0.0-0.9) Glucose (Fingerstick) 103mg/dL (70-99) Heparin Anti-Xa Act, Unfractionated 0.38IU/mL (0.30-0.70) White Blood Count 6.4x10^3/uL (4.0-11.0) Red Blood Count 2.31x10^6/uL (3.50-5.40) Hemoglobin 7.0g/dL (12.0-15.5) Hematocrit 21.1% (36.0-47.0) Mean Corpuscular Volume 91fL (79-100) Mean Corpuscular Hemoglobin 30pg (25-35) Mean Corpuscular Hemoglobin Concent 33g/dL (31-37) Red Cell Distribution Width 14.5% (11.5-14.5) Platelet Count 169x10^3/uL (140-400) Neutrophils (%) (Auto) 73% (31-73) Lymphocytes (%) (Auto) 19% (24-48) Monocytes (%) (Auto) 6% (0-9) Eosinophils (%) (Auto) 2% (0-3) Basophils (%) (Auto) 0% (0-3) Neutrophils # (Auto) 4.6x10^3uL (1.8-7.7) Lymphocytes # (Auto) 1.2x10^3/uL (1.0-4.8) Monocytes # (Auto) 0.4x10^3/uL (0.0-1.1) Eosinophils # (Auto) 0.1x10^3/uL (0.0-0.7) Basophils # (Auto) 0.0x10^3/uL (0.0-0.2) Reticulocyte Count (auto) 1.9% (0.5-2.5) Sodium Level 139mmol/L (136-145) Potassium Level 3.7mmol/L (3.5-5.1) Chloride Level 102mmol/L (98-107) Carbon Dioxide Level 30mmol/L (21-32) Anion Gap 7 (6-14) Blood Urea Nitrogen 23mg/dL (7-20) Creatinine 2.9mg/dL (0.6-1.0) Estimated GFR (Cockcroft-Gault) 16.6 Glucose Level 164mg/dL (70-99) Calcium Level 7.5mg/dL (8.5-10.1) Phosphorus Level 3.0mg/dL (2.6-4.7) Magnesium Level 1.8mg/dL (1.8-2.4) Iron Level 26ug/dL (50-170) Total Iron Binding Capacity 237ug/dL (250-450) Iron Saturation 11% (15-34) Ferritin 62ng/mL (8-252) Albumin 2.1g/dL (3.4-5.0) Vitamin B12 Level 286pg/mL (211-946) Test 06/03/16 08:29 06/03/16 13:46 06/03/16 17:59 Glucose (Fingerstick) 139mg/dL (70-99) 99mg/dL (70-99) 170mg/dL (70-99) Laboratory Tests Test 06/03/16 06:24 06/03/16 08:29 06/03/16 13:46 06/03/16 17:59 White Blood Count 6.4x10^3/uL (4.0-11.0) Red Blood Count 2.31x10^6/uL (3.50-5.40) Hemoglobin 7.0g/dL (12.0-15.5) Hematocrit 21.1% (36.0-47.0) Mean Corpuscular Volume 91fL (79-100) Mean Corpuscular Hemoglobin 30pg (25-35) Mean Corpuscular Hemoglobin Concent 33g/dL (31-37) Red Cell Distribution Width 14.5% (11.5-14.5) Platelet Count 169x10^3/uL (140-400) Neutrophils (%) (Auto) 73% (31-73) Lymphocytes (%) (Auto) 19% (24-48) Monocytes (%) (Auto) 6% (0-9) Eosinophils (%) (Auto) 2% (0-3) Basophils (%) (Auto) 0% (0-3) Neutrophils # (Auto) 4.6x10^3uL (1.8-7.7) Lymphocytes # (Auto) 1.2x10^3/uL (1.0-4.8) Monocytes # (Auto) 0.4x10^3/uL (0.0-1.1) Eosinophils # (Auto) 0.1x10^3/uL (0.0-0.7) Basophils # (Auto) 0.0x10^3/uL (0.0-0.2) Reticulocyte Count (auto) 1.9% (0.5-2.5) Sodium Level 139mmol/L (136-145) Potassium Level 3.7mmol/L (3.5-5.1) Chloride Level 102mmol/L (98-107) Carbon Dioxide Level 30mmol/L (21-32) Anion Gap 7 (6-14) Blood Urea Nitrogen 23mg/dL (7-20) Creatinine 2.9mg/dL (0.6-1.0) Estimated GFR (Cockcroft-Gault) 16.6 Glucose Level 164mg/dL (70-99) Calcium Level 7.5mg/dL (8.5-10.1) Phosphorus Level 3.0mg/dL (2.6-4.7) Magnesium Level 1.8mg/dL (1.8-2.4) Iron Level 26ug/dL (50-170) Total Iron Binding Capacity 237ug/dL (250-450) Iron Saturation 11% (15-34) Ferritin 62ng/mL (8-252) Albumin 2.1g/dL (3.4-5.0) Vitamin B12 Level 286pg/mL (211-946) Glucose (Fingerstick) 139mg/dL (70-99) 99mg/dL (70-99) 170mg/dL (70-99) Medications Current Medications Aspirin 324 mg 324 mg 1X ONCE PO Last administered on 06/01/16 12:59; Start at 12:45; Stop 06/01/16 at 12:48; Status DC Heparin Sodium/ Dextrose 500 ml @ 19 mls/hr CONT PRN IV SEE I/O RECORD Last administered on 06/02/16 14:45; Start 06/01/16 at 12:45; Stop 06/03/16 at 15:30; Status DC Heparin Sodium (Porcine) 1,950 unit PRN Q6HRS PRN IV FOR UFH LEVEL LESS THAN 0.2 Last administered on 06/01/16 13:01; Start 06/01/16 at 12:45; Stop 06/03/16 at 15:30; Status DC Ondansetron HCl (Zofran) 4 mg PRN Q8HRS PRN IV NAUSEA/VOMITING; Start 06/01/16 at 12:45; Stop 06/02/16 at 12:44; Status DC Morphine Sulfate 4 mg PRN Q2HR PRN IV PAIN Last administered on 06/01/16 14:03 ; Start 06/01/16 at 12:45; Stop 06/02/16 at 12:44; Status DC Nitroglycerin (Nitrostat) 0.4 mg PRN Q5MIN PRN SL CHEST PAIN Last administered on 06/01/16 14:03; Start 06/01/16 at 12:45; Stop 06/02/16 at 12:44; Status DC Amlodipine Besylate (Norvasc) 5 mg DAILYWLUN PO Last administered on 06/02/16 08:32; Start 06/01/16 at 14:00; Stop 06/02/16 at 16:02; Status DC Aspirin (Ecotrin) 81 mg DAILYWBKFT PO Last administered on 06/03/16 08:48; Start 06/01/16 at 14:00 Atorvastatin Calcium (Lipitor) 80 mg QHS PO Last administered on 06/03/16 20:48 ; Start 06/01/16 at 21:00 Carvedilol (Coreg) 25 mg BIDWMEALS PO Last administered on 06/03/16 18:04; Start 06/01/16 at 17:00 Clopidogrel Bisulfate (Plavix) 75 mg DAILY PO Last administered on 06/01/16 14: 28; Start 06/01/16 at 14:00; Stop 06/02/16 at 08:41; Status DC Isosorbide Mononitrate (Imdur) 30 mg DAILY PO Last administered on 06/03/16 08: 49; Start 06/01/16 at 14:00 Furosemide (Lasix) 40 mg 1X ONCE IVP Last administered on 06/01/16 14:30; Start 06/01/16 at 14:00; Stop 06/01/16 at 14:23; Status DC Furosemide 40 mg 40 mg 1X ONCE IVP Last administered on 06/01/16 14:30; Start 06/01/16 at 14:30; Stop 06/01/16 at 14:38; Status DC Nitroglycerin/ Dextrose (Nitroglycerin Drip) 250 ml @ 0 mls/hr CONT PRN IV SEE I/O RECORD Last administered on 06/01/16 15:23; Start 06/01/16 at 14:30; Stop 06/02/16 at 16:02; Status DC Acetaminophen (Tylenol) 325 mg PRN Q6HRS PRN PO MILD PAIN / TEMP; Start at 15:00 Acetaminophen/ Hydrocodone Bitart (Lortab 5/325) 1 tab PRN Q6HRS PRN PO MODERATE TO SEVERE PAIN; Start 06/01/16 at 15:00 Hydralazine HCl (Apresoline) 10 mg PRN Q4HRS PRN IVP ELEVATED BP, SEE COMMENTS ; Start 06/01/16 at 15:00 Ondansetron HCl (Zofran) 4 mg PRN Q8HRS PRN IV NAUSEA/VOMITING; Start 06/01/16 at 15:00 Albuterol Sulfate (Ventolin Neb Soln) 2.5 mg PRN Q4HRS PRN NEB SHORTNESS OF BREATH; Start 06/01/16 at 15:00 Insulin Aspart (Novolog) 0-7 UNITS TIDWMEALS SQ Last administered on 06/03/16 18:08; Start 06/01/16 at 17:00 Dextrose 12.5 gm PRN Q15MIN PRN IV SEE COMMENTS; Start 06/01/16 at 15:00 Info 1 each 1 each PRN DAILY PRN MC SEE COMMENTS Last administered on 06/03/16 09:38; Start 06/01/16 at 17:00 Magnesium Sulfate/ Dextrose (Magnesium Sulfate PREMIX 2GM) 50 ml @ 25 mls/hr PRN DAILY PRN IV for Mag < 1.7 on am labs; Start 06/02/16 at 11:15 Lidocaine/Sodium Bicarbonate (Buffered Lidocaine 1%) 3 ml 1X ONCE IJ Last administered on 06/02/16 14:03; Start 06/02/16 at 12:30; Stop 06/02/16 at 12:34; Status DC Heparin Sodium (Porcine) 2,400 unit 1X ONCE INT CAT Last administered on 14:04; Start 06/02/16 at 12:30; Stop 06/02/16 at 12:34; Status DC Heparin Sodium/ Sodium Chloride 60 unit 1X ONCE IV Last administered on 14:04; Start 06/02/16 at 12:30; Stop 06/02/16 at 12:34; Status DC Lisinopril (Prinivil) 20 mg DAILY PO Last administered on 06/03/16 08:48; Start 06/02/16 at 16:00 Hydralazine HCl 50 mg 50 mg BID PO Last administered on 06/03/16 20:48; Start 06/02/16 at 21:00 Sodium Chloride (Iv Sodium Chloride 0.9% 1000ml Bag) 1,000 ml @ 1,000 mls/hr Q1H PRN IV hypotension; Start 06/02/16 at 18:28; Stop 06/03/16 at 00:27; Status DC Diphenhydramine HCl (Benadryl) 25 mg 1X PRN PRN IV ITCHING; Start 06/02/16 at 18 :30; Stop 06/03/16 at 18:29; Status DC Diphenhydramine HCl (Benadryl) 25 mg 1X PRN PRN IV ITCHING; Start 06/02/16 at 18 :30; Stop 06/03/16 at 18:29; Status DC Sodium Chloride (Normal Saline Flush) 10 ml 1X PRN PRN IV AP catheter pack; Start 06/02/16 at 18:30; Stop 06/03/16 at 18:29; Status DC Sodium Chloride 10 ml 10 ml 1X PRN PRN IV 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; Start 06/02/16 at 18 :30; Stop 06/03/16 at 18:29; Status DC Sodium Chloride (Iv Sodium Chloride 0.9% 1000ml Bag) 1,000 ml @ 400 mls/hr Q2H30M PRN IV PATENCY; Start 06/02/16 at 18:28; Stop 06/03/16 at 06:27; Status DC Info (PHARMACY MONITORING -- do not chart) 1 each PRN DAILY PRN MC SEE COMMENTS ; Start 06/02/16 at 18:30 Info (PHARMACY MONITORING -- do not chart) 1 each PRN DAILY PRN MC SEE COMMENTS ; Start 06/03/16 at 10:30; Status UNV Info (PHARMACY MONITORING -- do not chart) 1 each PRN DAILY PRN MC SEE COMMENTS ; Start 06/03/16 at 10:30 Darbepoetin Malick (Aranesp) 60 mcg WEEKLYHS SQ Last administered on 06/03/16 20: 48; Start 06/03/16 at 21:00 Clopidogrel Bisulfate (Plavix) 75 mg DAILYWBKFT PO ; Start 06/04/16 at 08:00; Stop 06/04/16 at 08:00; Status DC Clopidogrel Bisulfate (Plavix) 75 mg DAILYWBKFT PO Last administered on 18:05; Start 06/03/16 at 15:30 Active Scripts Active Lisinopril 20 Mg Tablet 20 Mg PO QHS Isosorbide Mononitrate Er (Isosorbide Mononitrate) 30 Mg Tab.er.24h 30 Mg PO DAILY Hydralazine Hcl 50 Mg Tablet 100 Mg PO TID Carvedilol 12.5 Mg Tablet 25 Mg PO BIDWMEALS Atorvastatin Calcium 40 Mg Tablet 80 Mg PO QHS Aspirin Ec (Aspirin) 81 Mg Tablet.dr 81 Mg PO DAILYWBKFT Amlodipine Besylate 5 Mg Tablet 5 Mg PO DAILYWLUN Reported Clopidogrel (Clopidogrel Bisulfate) 75 Mg Tablet 75 Mg PO DAILY Glyburide 5 Mg Tablet 1 Tab PO BIDWMEALS Lisinopril 20 Mg Tablet 1 Tab PO DAILY Vitals/I & O Vital Sign - Last 24 Hours 06/02/16 06/02/16 06/02/16 06/02/16 22:00 22:15 23:00 23:59 Pulse 82 86 87 Resp 19 21 B/P 121/59 121/59 142/65 Pulse Ox 95 95 O2 Delivery Room Air Room Air Room Air 06/03/16 06/03/16 06/03/16 06/03/16 00:00 01:00 02:00 03:00 Temp 98.6 98.6 Pulse 90 86 90 89 Resp 22 20 20 20 B/P 151/67 146/61 139/55 145/61 Pulse Ox 96 92 92 91 O2 Delivery Room Air Room Air Room Air Room Air 06/03/16 06/03/16 06/03/16 06/03/16 04:00 04:00 05:00 06:00 Temp 98.8 98.8 Pulse 88 82 80 Resp 23 24 27 B/P 159/66 125/53 125/58 Pulse Ox 91 94 92 O2 Delivery Room Air Room Air Room Air Room Air 06/03/16 06/03/16 06/03/16 06/03/16 07:00 08:00 08:00 08:48 Temp 100.2 100.2 Pulse 88 98 98 Resp 21 22 B/P 123/53 114/59 114/59 Pulse Ox 90 96 O2 Delivery Room Air Room Air Room Air 06/03/16 06/03/16 06/03/16 06/03/16 08:48 08:49 08:49 09:00 Pulse 92 98 98 94 Resp 22 B/P 114/59 114/59 114/59 128/54 Pulse Ox 97 O2 Delivery Room Air 06/03/16 06/03/16 06/03/16 06/03/16 10:00 11:00 12:00 12:00 Temp 98.6 98.6 Pulse 94 74 68 Resp 22 17 31 B/P 133/58 119/49 140/63 Pulse Ox 97 96 96 O2 Delivery Room Air Room Air Room Air Room Air 06/03/16 06/03/16 06/03/16 06/03/16 13:00 14:00 15:00 16:00 Temp 99.3 99.3 Pulse 80 91 80 76 Resp 15 20 29 19 B/P 141/61 151/65 133/54 122/56 Pulse Ox 94 96 99 91 O2 Delivery Room Air Room Air Room Air Room Air 06/03/16 06/03/16 06/03/16 06/03/16 16:00 17:00 18:00 18:04 Pulse 76 80 76 Resp 19 31 B/P 118/56 145/64 118/56 Pulse Ox 99 96 O2 Delivery Room Air Room Air Room Air 06/03/16 06/03/16 06/03/16 06/03/16 19:00 20:00 20:00 20:48 Temp 99.3 99.3 Pulse 77 78 79 Resp 20 20 B/P 113/50 116/53 116/53 Pulse Ox 95 93 O2 Delivery Room Air Room Air Room Air Intake and Output 06/02/16 06/02/16 06/03/16 15:00 23:00 07:00 Intake Total 461.6 ml 269 ml Output Total 300 ml 500 ml 400 ml Balance -300 ml -38.4 ml -131 ml SELMA LALA MD Jun 03, 2016 21:14
[2016-06-04] VITALS (15 sets, daily range): BP systolic 126–178; BP diastolic 58–86
[2016-06-04 06:58] LABS: ALBUMIN 2.1 g/dL (3.4-5.0); CALCIUM 7.8 mg/dL (8.5-10.1); CREATININE 3.1 mg/dL (0.6-1.0); GFR 15.4; PHOSPHORUS 3.5 mg/dL (2.6-4.7)
[2016-06-04 07:36] LABS: BASO % 1 % (0-3); EOS % 3 % (0-3); HEMATOCRIT 21.4 % (36.0-47.0); LYMPH # 1.3 x10^3/uL (1.0-4.8); LYMPH % 22 % (24-48); MEAN CORPUSCULAR HEMOGLOBIN 31 pg (25-35); MEAN CORPUSCULAR HGB CONC 33 g/dL (31-37); MEAN CORPUSCULAR VOLUME 93 fL (79-100); MONO % 12 % (0-9); NEUT % 62 % (31-73); PLATELET COUNT 157 x10^3/uL (140-400); RED BLOOD COUNT 2.29 x10^6/uL (3.50-5.40); WHITE BLOOD COUNT 5.9 x10^3/uL (4.0-11.0)
[2016-06-04] MEDS: INSULIN ASPART 300 UNITS/3 ML INSULN.PEN SQ SCH ×3 (08:00→17:03)
[2016-06-04] MEDS ORDERED: CLOPIDOGREL BISULFATE 75 MG TABLET PO SCH (08:00)
[2016-06-04] MEDS ORDERED: IV NORMAL SALINE 1000ML BAG 1,000 ML IV PRN ×2 (08:11)
[2016-06-04] MEDS ORDERED: DIALYSIS PATIENT. MC PRN (08:15)
[2016-06-04] MEDS ORDERED: 0.9 % SODIUM CHLORIDE 10 ML DISP.SYRIN. IV PRN ×2 (08:15)
[2016-06-04] MEDS ORDERED: DIPHENHYDRAMINE 50 MG/ML VIAL IV PRN ×2 (08:15)
[2016-06-04] MEDS: ASPIRIN ENTERIC COATED 81 MG TABLET.DR. PO SCH (08:25)
[2016-06-04] MEDS: CLOPIDOGREL BISULFATE 75 MG TABLET PO SCH (08:25)
--- NOTE | 2016-06-04 10:25 | PDOC ---
Dialysis Progress Note Dialysis Note Dialysis Note Seen on Hemodialysis, tolerating treatment Okay so far Vitals on Hemodialysis: 171/72 75 16 afeb General Appearance: Awake: Alert Oriented x 2-3 Neck: No JVD or JVP Chest: CTA Dionte Heart: S1 S2 Abdomen - Soft NTND Extremities - No Edema ESRD: Dialysis as below F 180 NR 3.0 Hrs 3 K 2.5 Ca 140 Na 30 HC03 Qb 350 + Qd 500+ Heparin on gtt Units Uf none Kgs or to dry weight as tolerated Pt refused Transfusion of PRCBC's previously May give 25-50 gms of 25% Albumin or NS if needed to maintain Hemodynamic stability Treatment plan reviewed and discussed with derrick worker well service Vitals Vital Signs Vital Signs Date Time Temp Pulse Resp B/P Pulse Ox O2 Delivery O2 Flow Rate FiO2 06/04/16 06:00 74 19 144/66 92 Room Air 06/04/16 04:00 99.9 99.9 06/02/16 09:00 2.0 Labs Last Labs Laboratory Tests Test 06/02/16 10:38 06/02/16 11:40 06/02/16 14:12 06/02/16 15:05 Glucose (Fingerstick) 95mg/dL (70-99) 103mg/dL (70-99) Prothrombin Time 13.5SEC (11.7-14.0) Prothromb Time International Ratio 1.1 (0.8-1.1) Activated Partial Thromboplast Time 95SEC (24-38) Estimated GFR (Non- 11 (>59) EGFR 13 (>59) PTH (Intact) Specimen Description Comment (.) Parathyroid Hormone (Intact) 192pg/mL (15-65) Calcium (PTH Intact) 8.0mg/dL (8.7-10.2) Creatinine (PTH Intact) 4.14mg/dL (0.57-1.00) Phosphorus (PTH Intact) 5.4mg/dL (2.5-4.5) Hepatitis A IgM Antibody Negative (Negative) Hepatitis B Surface Antigen Negative (Negative) Hepatitis B Surface Antibody Non reactive (.) Hepatitis B Core Total Antibody Negative (Negative) Hepatitis B Core IgM Antibody Negative (Negative) Hepatitis C Antibody <0.1s/co ratio (0.0-0.9) Heparin Anti-Xa Act, Unfractionated 0.38IU/mL (0.30-0.70) Test 06/02/16 16:37 06/03/16 06:24 06/03/16 08:29 06/03/16 13:46 Glucose (Fingerstick) 182mg/dL (70-99) 139mg/dL (70-99) 99mg/dL (70-99) White Blood Count 6.4x10^3/uL (4.0-11.0) Red Blood Count 2.31x10^6/uL (3.50-5.40) Hemoglobin 7.0g/dL (12.0-15.5) Hematocrit 21.1% (36.0-47.0) Mean Corpuscular Volume 91fL (79-100) Mean Corpuscular Hemoglobin 30pg (25-35) Mean Corpuscular Hemoglobin Concent 33g/dL (31-37) Red Cell Distribution Width 14.5% (11.5-14.5) Platelet Count 169x10^3/uL (140-400) Neutrophils (%) (Auto) 73% (31-73) Lymphocytes (%) (Auto) 19% (24-48) Monocytes (%) (Auto) 6% (0-9) Eosinophils (%) (Auto) 2% (0-3) Basophils (%) (Auto) 0% (0-3) Neutrophils # (Auto) 4.6x10^3uL (1.8-7.7) Lymphocytes # (Auto) 1.2x10^3/uL (1.0-4.8) Monocytes # (Auto) 0.4x10^3/uL (0.0-1.1) Eosinophils # (Auto) 0.1x10^3/uL (0.0-0.7) Basophils # (Auto) 0.0x10^3/uL (0.0-0.2) Reticulocyte Count (auto) 1.9% (0.5-2.5) Sodium Level 139mmol/L (136-145) Potassium Level 3.7mmol/L (3.5-5.1) Chloride Level 102mmol/L (98-107) Carbon Dioxide Level 30mmol/L (21-32) Anion Gap 7 (6-14) Blood Urea Nitrogen 23mg/dL (7-20) Creatinine 2.9mg/dL (0.6-1.0) Estimated GFR (Cockcroft-Gault) 16.6 Glucose Level 164mg/dL (70-99) Calcium Level 7.5mg/dL (8.5-10.1) Phosphorus Level 3.0mg/dL (2.6-4.7) Magnesium Level 1.8mg/dL (1.8-2.4) Iron Level 26ug/dL (50-170) Total Iron Binding Capacity 237ug/dL (250-450) Iron Saturation 11% (15-34) Ferritin 62ng/mL (8-252) Albumin 2.1g/dL (3.4-5.0) Vitamin B12 Level 286pg/mL (211-946) Test 06/03/16 17:59 06/04/16 06:00 Glucose (Fingerstick) 170mg/dL (70-99) White Blood Count 5.9x10^3/uL (4.0-11.0) Red Blood Count 2.29x10^6/uL (3.50-5.40) Hemoglobin 7.0g/dL (12.0-15.5) Hematocrit 21.4% (36.0-47.0) Mean Corpuscular Volume 93fL (79-100) Mean Corpuscular Hemoglobin 31pg (25-35) Mean Corpuscular Hemoglobin Concent 33g/dL (31-37) Red Cell Distribution Width 15.0% (11.5-14.5) Platelet Count 157x10^3/uL (140-400) Neutrophils (%) (Auto) 62% (31-73) Lymphocytes (%) (Auto) 22% (24-48) Monocytes (%) (Auto) 12% (0-9) Eosinophils (%) (Auto) 3% (0-3) Basophils (%) (Auto) 1% (0-3) Neutrophils # (Auto) 3.7x10^3uL (1.8-7.7) Lymphocytes # (Auto) 1.3x10^3/uL (1.0-4.8) Monocytes # (Auto) 0.7x10^3/uL (0.0-1.1) Eosinophils # (Auto) 0.2x10^3/uL (0.0-0.7) Basophils # (Auto) 0.0x10^3/uL (0.0-0.2) Sodium Level 140mmol/L (136-145) Potassium Level 4.0mmol/L (3.5-5.1) Chloride Level 104mmol/L (98-107) Carbon Dioxide Level 29mmol/L (21-32) Anion Gap 7 (6-14) Blood Urea Nitrogen 19mg/dL (7-20) Creatinine 3.1mg/dL (0.6-1.0) Estimated GFR (Cockcroft-Gault) 15.4 Glucose Level 147mg/dL (70-99) Calcium Level 7.8mg/dL (8.5-10.1) Phosphorus Level 3.5mg/dL (2.6-4.7) Magnesium Level 1.7mg/dL (1.8-2.4) Albumin 2.1g/dL (3.4-5.0) Laboratory Tests Test 06/03/16 13:46 06/03/16 17:59 06/04/16 06:00 Glucose (Fingerstick) 99mg/dL (70-99) 170mg/dL (70-99) White Blood Count 5.9x10^3/uL (4.0-11.0) Red Blood Count 2.29x10^6/uL (3.50-5.40) Hemoglobin 7.0g/dL (12.0-15.5) Hematocrit 21.4% (36.0-47.0) Mean Corpuscular Volume 93fL (79-100) Mean Corpuscular Hemoglobin 31pg (25-35) Mean Corpuscular Hemoglobin Concent 33g/dL (31-37) Red Cell Distribution Width 15.0% (11.5-14.5) Platelet Count 157x10^3/uL (140-400) Neutrophils (%) (Auto) 62% (31-73) Lymphocytes (%) (Auto) 22% (24-48) Monocytes (%) (Auto) 12% (0-9) Eosinophils (%) (Auto) 3% (0-3) Basophils (%) (Auto) 1% (0-3) Neutrophils # (Auto) 3.7x10^3uL (1.8-7.7) Lymphocytes # (Auto) 1.3x10^3/uL (1.0-4.8) Monocytes # (Auto) 0.7x10^3/uL (0.0-1.1) Eosinophils # (Auto) 0.2x10^3/uL (0.0-0.7) Basophils # (Auto) 0.0x10^3/uL (0.0-0.2) Sodium Level 140mmol/L (136-145) Potassium Level 4.0mmol/L (3.5-5.1) Chloride Level 104mmol/L (98-107) Carbon Dioxide Level 29mmol/L (21-32) Anion Gap 7 (6-14) Blood Urea Nitrogen 19mg/dL (7-20) Creatinine 3.1mg/dL (0.6-1.0) Estimated GFR (Cockcroft-Gault) 15.4 Glucose Level 147mg/dL (70-99) Calcium Level 7.8mg/dL (8.5-10.1) Phosphorus Level 3.5mg/dL (2.6-4.7) Magnesium Level 1.7mg/dL (1.8-2.4) Albumin 2.1g/dL (3.4-5.0) Assessment Assessment Problems Medical Problems: (1) Congestive heart failure Status: Acute (2) NSTEMI (non-ST elevated myocardial infarction) Status: Acute Problems: Plan Plan of Care Problems Medical Problems: (1) Congestive heart failure Status: Acute (2) NSTEMI (non-ST elevated myocardial infarction) Status: Acute PALMA HERNANDEZ MD Jun 04, 2016 10:24
--- NOTE | 2016-06-04 10:28 | PDOC ---
PROGRESS NOTES Chief Complaint Chief Complaint cc: sob A//P 1. Acute on chronic systolic congestive heart failure. 2. Oll-[id number]-bmyhxfe elevation myocardial infarction. 3. ZORAN 4. Ischemic cardiomyopathy. 5. Malignant hypertension, Better 6. Anemia 7. Hyperlipidemia. 8. Psoriasis. 9. CAD 10. Anemia Plan Temp HD catheter HD nephrology BP controlled, cardiology following Intake and out put. Cardiac cath per cardiology SSI Lipitor labs reviewed Monitor hemoglobin Prognosis guarded. family at bedside, all questions answered. History of Present Illness History of Present Illness sob better no fever no chills. no chest pain Vitals Vitals Vital Signs Date Time Temp Pulse Resp B/P Pulse Ox O2 Delivery O2 Flow Rate FiO2 06/04/16 06:00 74 19 144/66 92 Room Air 06/04/16 04:00 99.9 99.9 Physical Exam General: Alert, Oriented X3, Cooperative, moderate distress Heart: Normal S1, Normal S2, Other (tele: ST, 2/6 systolci murmur ) Lungs: Clear, Other Abdomen: Soft, No tenderness Extremities: No cyanosis, No edema, Normal pulses Skin: No breakdown, No significant lesion, Other (psoriasis ) Labs LABS Laboratory Tests Test 06/03/16 13:46 06/03/16 17:59 06/04/16 06:00 Glucose (Fingerstick) 99mg/dL (70-99) 170mg/dL (70-99) White Blood Count 5.9x10^3/uL (4.0-11.0) Red Blood Count 2.29x10^6/uL (3.50-5.40) Hemoglobin 7.0g/dL (12.0-15.5) Hematocrit 21.4% (36.0-47.0) Mean Corpuscular Volume 93fL (79-100) Mean Corpuscular Hemoglobin 31pg (25-35) Mean Corpuscular Hemoglobin Concent 33g/dL (31-37) Red Cell Distribution Width 15.0% (11.5-14.5) Platelet Count 157x10^3/uL (140-400) Neutrophils (%) (Auto) 62% (31-73) Lymphocytes (%) (Auto) 22% (24-48) Monocytes (%) (Auto) 12% (0-9) Eosinophils (%) (Auto) 3% (0-3) Basophils (%) (Auto) 1% (0-3) Neutrophils # (Auto) 3.7x10^3uL (1.8-7.7) Lymphocytes # (Auto) 1.3x10^3/uL (1.0-4.8) Monocytes # (Auto) 0.7x10^3/uL (0.0-1.1) Eosinophils # (Auto) 0.2x10^3/uL (0.0-0.7) Basophils # (Auto) 0.0x10^3/uL (0.0-0.2) Sodium Level 140mmol/L (136-145) Potassium Level 4.0mmol/L (3.5-5.1) Chloride Level 104mmol/L (98-107) Carbon Dioxide Level 29mmol/L (21-32) Anion Gap 7 (6-14) Blood Urea Nitrogen 19mg/dL (7-20) Creatinine 3.1mg/dL (0.6-1.0) Estimated GFR (Cockcroft-Gault) 15.4 Glucose Level 147mg/dL (70-99) Calcium Level 7.8mg/dL (8.5-10.1) Phosphorus Level 3.5mg/dL (2.6-4.7) Magnesium Level 1.7mg/dL (1.8-2.4) Albumin 2.1g/dL (3.4-5.0) Assessment and Plan Assessmemt and Plan Problems Medical Problems: (1) Congestive heart failure Status: Acute (2) NSTEMI (non-ST elevated myocardial infarction) Status: Acute Problems: Comment Review of Relevant I have reviewed the following items fede (where applicable) has been applied. Labs Laboratory Tests Test 06/02/16 10:38 06/02/16 11:40 06/02/16 14:12 06/02/16 15:05 Glucose (Fingerstick) 95mg/dL (70-99) 103mg/dL (70-99) Prothrombin Time 13.5SEC (11.7-14.0) Prothromb Time International Ratio 1.1 (0.8-1.1) Activated Partial Thromboplast Time 95SEC (24-38) Estimated GFR (Non- 11 (>59) EGFR 13 (>59) PTH (Intact) Specimen Description Comment (.) Parathyroid Hormone (Intact) 192pg/mL (15-65) Calcium (PTH Intact) 8.0mg/dL (8.7-10.2) Creatinine (PTH Intact) 4.14mg/dL (0.57-1.00) Phosphorus (PTH Intact) 5.4mg/dL (2.5-4.5) Hepatitis A IgM Antibody Negative (Negative) Hepatitis B Surface Antigen Negative (Negative) Hepatitis B Surface Antibody Non reactive (.) Hepatitis B Core Total Antibody Negative (Negative) Hepatitis B Core IgM Antibody Negative (Negative) Hepatitis C Antibody <0.1s/co ratio (0.0-0.9) Heparin Anti-Xa Act, Unfractionated 0.38IU/mL (0.30-0.70) Test 06/02/16 16:37 06/03/16 06:24 06/03/16 08:29 06/03/16 13:46 Glucose (Fingerstick) 182mg/dL (70-99) 139mg/dL (70-99) 99mg/dL (70-99) White Blood Count 6.4x10^3/uL (4.0-11.0) Red Blood Count 2.31x10^6/uL (3.50-5.40) Hemoglobin 7.0g/dL (12.0-15.5) Hematocrit 21.1% (36.0-47.0) Mean Corpuscular Volume 91fL (79-100) Mean Corpuscular Hemoglobin 30pg (25-35) Mean Corpuscular Hemoglobin Concent 33g/dL (31-37) Red Cell Distribution Width 14.5% (11.5-14.5) Platelet Count 169x10^3/uL (140-400) Neutrophils (%) (Auto) 73% (31-73) Lymphocytes (%) (Auto) 19% (24-48) Monocytes (%) (Auto) 6% (0-9) Eosinophils (%) (Auto) 2% (0-3) Basophils (%) (Auto) 0% (0-3) Neutrophils # (Auto) 4.6x10^3uL (1.8-7.7) Lymphocytes # (Auto) 1.2x10^3/uL (1.0-4.8) Monocytes # (Auto) 0.4x10^3/uL (0.0-1.1) Eosinophils # (Auto) 0.1x10^3/uL (0.0-0.7) Basophils # (Auto) 0.0x10^3/uL (0.0-0.2) Reticulocyte Count (auto) 1.9% (0.5-2.5) Sodium Level 139mmol/L (136-145) Potassium Level 3.7mmol/L (3.5-5.1) Chloride Level 102mmol/L (98-107) Carbon Dioxide Level 30mmol/L (21-32) Anion Gap 7 (6-14) Blood Urea Nitrogen 23mg/dL (7-20) Creatinine 2.9mg/dL (0.6-1.0) Estimated GFR (Cockcroft-Gault) 16.6 Glucose Level 164mg/dL (70-99) Calcium Level 7.5mg/dL (8.5-10.1) Phosphorus Level 3.0mg/dL (2.6-4.7) Magnesium Level 1.8mg/dL (1.8-2.4) Iron Level 26ug/dL (50-170) Total Iron Binding Capacity 237ug/dL (250-450) Iron Saturation 11% (15-34) Ferritin 62ng/mL (8-252) Albumin 2.1g/dL (3.4-5.0) Vitamin B12 Level 286pg/mL (211-946) Test 06/03/16 17:59 06/04/16 06:00 Glucose (Fingerstick) 170mg/dL (70-99) White Blood Count 5.9x10^3/uL (4.0-11.0) Red Blood Count 2.29x10^6/uL (3.50-5.40) Hemoglobin 7.0g/dL (12.0-15.5) Hematocrit 21.4% (36.0-47.0) Mean Corpuscular Volume 93fL (79-100) Mean Corpuscular Hemoglobin 31pg (25-35) Mean Corpuscular Hemoglobin Concent 33g/dL (31-37) Red Cell Distribution Width 15.0% (11.5-14.5) Platelet Count 157x10^3/uL (140-400) Neutrophils (%) (Auto) 62% (31-73) Lymphocytes (%) (Auto) 22% (24-48) Monocytes (%) (Auto) 12% (0-9) Eosinophils (%) (Auto) 3% (0-3) Basophils (%) (Auto) 1% (0-3) Neutrophils # (Auto) 3.7x10^3uL (1.8-7.7) Lymphocytes # (Auto) 1.3x10^3/uL (1.0-4.8) Monocytes # (Auto) 0.7x10^3/uL (0.0-1.1) Eosinophils # (Auto) 0.2x10^3/uL (0.0-0.7) Basophils # (Auto) 0.0x10^3/uL (0.0-0.2) Sodium Level 140mmol/L (136-145) Potassium Level 4.0mmol/L (3.5-5.1) Chloride Level 104mmol/L (98-107) Carbon Dioxide Level 29mmol/L (21-32) Anion Gap 7 (6-14) Blood Urea Nitrogen 19mg/dL (7-20) Creatinine 3.1mg/dL (0.6-1.0) Estimated GFR (Cockcroft-Gault) 15.4 Glucose Level 147mg/dL (70-99) Calcium Level 7.8mg/dL (8.5-10.1) Phosphorus Level 3.5mg/dL (2.6-4.7) Magnesium Level 1.7mg/dL (1.8-2.4) Albumin 2.1g/dL (3.4-5.0) Laboratory Tests Test 06/03/16 13:46 06/03/16 17:59 06/04/16 06:00 Glucose (Fingerstick) 99mg/dL (70-99) 170mg/dL (70-99) White Blood Count 5.9x10^3/uL (4.0-11.0) Red Blood Count 2.29x10^6/uL (3.50-5.40) Hemoglobin 7.0g/dL (12.0-15.5) Hematocrit 21.4% (36.0-47.0) Mean Corpuscular Volume 93fL (79-100) Mean Corpuscular Hemoglobin 31pg (25-35) Mean Corpuscular Hemoglobin Concent 33g/dL (31-37) Red Cell Distribution Width 15.0% (11.5-14.5) Platelet Count 157x10^3/uL (140-400) Neutrophils (%) (Auto) 62% (31-73) Lymphocytes (%) (Auto) 22% (24-48) Monocytes (%) (Auto) 12% (0-9) Eosinophils (%) (Auto) 3% (0-3) Basophils (%) (Auto) 1% (0-3) Neutrophils # (Auto) 3.7x10^3uL (1.8-7.7) Lymphocytes # (Auto) 1.3x10^3/uL (1.0-4.8) Monocytes # (Auto) 0.7x10^3/uL (0.0-1.1) Eosinophils # (Auto) 0.2x10^3/uL (0.0-0.7) Basophils # (Auto) 0.0x10^3/uL (0.0-0.2) Sodium Level 140mmol/L (136-145) Potassium Level 4.0mmol/L (3.5-5.1) Chloride Level 104mmol/L (98-107) Carbon Dioxide Level 29mmol/L (21-32) Anion Gap 7 (6-14) Blood Urea Nitrogen 19mg/dL (7-20) Creatinine 3.1mg/dL (0.6-1.0) Estimated GFR (Cockcroft-Gault) 15.4 Glucose Level 147mg/dL (70-99) Calcium Level 7.8mg/dL (8.5-10.1) Phosphorus Level 3.5mg/dL (2.6-4.7) Magnesium Level 1.7mg/dL (1.8-2.4) Albumin 2.1g/dL (3.4-5.0) Medications Current Medications Aspirin 324 mg 324 mg 1X ONCE PO Last administered on 06/01/16 12:59; Start at 12:45; Stop 06/01/16 at 12:48; Status DC Heparin Sodium/ Dextrose 500 ml @ 19 mls/hr CONT PRN IV SEE I/O RECORD Last administered on 06/02/16 14:45; Start 06/01/16 at 12:45; Stop 06/03/16 at 15:30; Status DC Heparin Sodium (Porcine) 1,950 unit PRN Q6HRS PRN IV FOR UFH LEVEL LESS THAN 0.2 Last administered on 06/01/16 13:01; Start 06/01/16 at 12:45; Stop 06/03/16 at 15:30; Status DC Ondansetron HCl (Zofran) 4 mg PRN Q8HRS PRN IV NAUSEA/VOMITING; Start 06/01/16 at 12:45; Stop 06/02/16 at 12:44; Status DC Morphine Sulfate 4 mg PRN Q2HR PRN IV PAIN Last administered on 06/01/16 14:03 ; Start 06/01/16 at 12:45; Stop 06/02/16 at 12:44; Status DC Nitroglycerin (Nitrostat) 0.4 mg PRN Q5MIN PRN SL CHEST PAIN Last administered on 06/01/16 14:03; Start 06/01/16 at 12:45; Stop 06/02/16 at 12:44; Status DC Amlodipine Besylate (Norvasc) 5 mg DAILYWLUN PO Last administered on 06/02/16 08:32; Start 06/01/16 at 14:00; Stop 06/02/16 at 16:02; Status DC Aspirin (Ecotrin) 81 mg DAILYWBKFT PO Last administered on 06/04/16 08:25; Start 06/01/16 at 14:00 Atorvastatin Calcium (Lipitor) 80 mg QHS PO Last administered on 06/03/16 20:48 ; Start 06/01/16 at 21:00 Carvedilol (Coreg) 25 mg BIDWMEALS PO Last administered on 06/03/16 18:04; Start 06/01/16 at 17:00 Clopidogrel Bisulfate (Plavix) 75 mg DAILY PO Last administered on 06/01/16 14: 28; Start 06/01/16 at 14:00; Stop 06/02/16 at 08:41; Status DC Isosorbide Mononitrate (Imdur) 30 mg DAILY PO Last administered on 06/03/16 08: 49; Start 06/01/16 at 14:00 Furosemide (Lasix) 40 mg 1X ONCE IVP Last administered on 06/01/16 14:30; Start 06/01/16 at 14:00; Stop 06/01/16 at 14:23; Status DC Furosemide 40 mg 40 mg 1X ONCE IVP Last administered on 06/01/16 14:30; Start 06/01/16 at 14:30; Stop 06/01/16 at 14:38; Status DC Nitroglycerin/ Dextrose (Nitroglycerin Drip) 250 ml @ 0 mls/hr CONT PRN IV SEE I/O RECORD Last administered on 06/01/16 15:23; Start 06/01/16 at 14:30; Stop 06/02/16 at 16:02; Status DC Acetaminophen (Tylenol) 325 mg PRN Q6HRS PRN PO MILD PAIN / TEMP; Start at 15:00 Acetaminophen/ Hydrocodone Bitart (Lortab 5/325) 1 tab PRN Q6HRS PRN PO MODERATE TO SEVERE PAIN; Start 06/01/16 at 15:00 Hydralazine HCl (Apresoline) 10 mg PRN Q4HRS PRN IVP ELEVATED BP, SEE COMMENTS ; Start 06/01/16 at 15:00 Ondansetron HCl (Zofran) 4 mg PRN Q8HRS PRN IV NAUSEA/VOMITING; Start 06/01/16 at 15:00 Albuterol Sulfate (Ventolin Neb Soln) 2.5 mg PRN Q4HRS PRN NEB SHORTNESS OF BREATH; Start 06/01/16 at 15:00 Insulin Aspart (Novolog) 0-7 UNITS TIDWMEALS SQ Last administered on 06/03/16 18:08; Start 06/01/16 at 17:00 Dextrose 12.5 gm PRN Q15MIN PRN IV SEE COMMENTS; Start 06/01/16 at 15:00 Info 1 each 1 each PRN DAILY PRN MC SEE COMMENTS Last administered on 06/03/16 09:38; Start 06/01/16 at 17:00; Stop 06/04/16 at 08:25; Status DC Magnesium Sulfate/ Dextrose (Magnesium Sulfate PREMIX 2GM) 50 ml @ 25 mls/hr PRN DAILY PRN IV for Mag < 1.7 on am labs; Start 06/02/16 at 11:15 Lidocaine/Sodium Bicarbonate (Buffered Lidocaine 1%) 3 ml 1X ONCE IJ Last administered on 06/02/16 14:03; Start 06/02/16 at 12:30; Stop 06/02/16 at 12:34; Status DC Heparin Sodium (Porcine) 2,400 unit 1X ONCE INT CAT Last administered on 14:04; Start 06/02/16 at 12:30; Stop 06/02/16 at 12:34; Status DC Heparin Sodium/ Sodium Chloride 60 unit 1X ONCE IV Last administered on 14:04; Start 06/02/16 at 12:30; Stop 06/02/16 at 12:34; Status DC Lisinopril (Prinivil) 20 mg DAILY PO Last administered on 06/03/16 08:48; Start 06/02/16 at 16:00 Hydralazine HCl 50 mg 50 mg BID PO Last administered on 06/03/16 20:48; Start 06/02/16 at 21:00 Sodium Chloride (Iv Sodium Chloride 0.9% 1000ml Bag) 1,000 ml @ 1,000 mls/hr Q1H PRN IV hypotension; Start 06/02/16 at 18:28; Stop 06/03/16 at 00:27; Status DC Diphenhydramine HCl (Benadryl) 25 mg 1X PRN PRN IV ITCHING; Start 06/02/16 at 18 :30; Stop 06/03/16 at 18:29; Status DC Diphenhydramine HCl (Benadryl) 25 mg 1X PRN PRN IV ITCHING; Start 06/02/16 at 18 :30; Stop 06/03/16 at 18:29; Status DC Sodium Chloride (Normal Saline Flush) 10 ml 1X PRN PRN IV AP catheter pack; Start 06/02/16 at 18:30; Stop 06/03/16 at 18:29; Status DC Sodium Chloride 10 ml 10 ml 1X PRN PRN IV EDGER MACHINE SETTER catheter pack; Start 06/02/16 at 18 :30; Stop 06/03/16 at 18:29; Status DC Sodium Chloride (Iv Sodium Chloride 0.9% 1000ml Bag) 1,000 ml @ 400 mls/hr Q2H30M PRN IV PATENCY; Start 06/02/16 at 18:28; Stop 06/03/16 at 06:27; Status DC Info (PHARMACY MONITORING -- do not chart) 1 each PRN DAILY PRN MC SEE COMMENTS ; Start 06/02/16 at 18:30 Info (PHARMACY MONITORING -- do not chart) 1 each PRN DAILY PRN MC SEE COMMENTS ; Start 06/03/16 at 10:30; Status UNV Info (PHARMACY MONITORING -- do not chart) 1 each PRN DAILY PRN MC SEE COMMENTS ; Start 06/03/16 at 10:30; Status Cancel Darbepoetin Malick (Aranesp) 60 mcg WEEKLYHS SQ Last administered on 06/03/16 20: 48; Start 06/03/16 at 21:00 Clopidogrel Bisulfate (Plavix) 75 mg DAILYWBKFT PO ; Start 06/04/16 at 08:00; Stop 06/04/16 at 08:00; Status DC Clopidogrel Bisulfate 75 mg 75 mg DAILYWBKFT PO Last administered on 06/04/16 08:25; Start 06/03/16 at 15:30 Sodium Chloride (Iv Sodium Chloride 0.9% 1000ml Bag) 1,000 ml @ 1,000 mls/hr Q1H PRN IV hypotension; Start 06/04/16 at 08:11; Stop 06/04/16 at 15:00 Diphenhydramine HCl (Benadryl) 25 mg 1X PRN PRN IV ITCHING; Start 06/04/16 at 08:15; Stop 06/04/16 at 15:00 Diphenhydramine HCl (Benadryl) 25 mg 1X PRN PRN IV ITCHING; Start 06/04/16 at 08:15; Stop 06/04/16 at 15:00 Sodium Chloride (Normal Saline Flush) 10 ml 1X PRN PRN IV AP catheter pack; Start 06/04/16 at 08:15; Stop 06/04/16 at 15:00 Sodium Chloride 10 ml 10 ml 1X PRN PRN IV EDGER MACHINE SETTER catheter pack; Start 06/04/16 at 08:15; Stop 06/04/16 at 15:00 Sodium Chloride (Iv Sodium Chloride 0.9% 1000ml Bag) 1,000 ml @ 400 mls/hr Q2H30M PRN IV PATENCY; Start 06/04/16 at 08:11; Stop 06/04/16 at 21:00 Info (PHARMACY MONITORING -- do not chart) 1 each PRN DAILY PRN MC SEE COMMENTS ; Start 06/04/16 at 08:15; Status UNV Active Scripts Active Lisinopril 20 Mg Tablet 20 Mg PO QHS Isosorbide Mononitrate Er (Isosorbide Mononitrate) 30 Mg Tab.er.24h 30 Mg PO DAILY Hydralazine Hcl 50 Mg Tablet 100 Mg PO TID Carvedilol 12.5 Mg Tablet 25 Mg PO BIDWMEALS Atorvastatin Calcium 40 Mg Tablet 80 Mg PO QHS Aspirin Ec (Aspirin) 81 Mg Tablet.dr 81 Mg PO DAILYWBKFT Amlodipine Besylate 5 Mg Tablet 5 Mg PO DAILYWLUN Reported Clopidogrel (Clopidogrel Bisulfate) 75 Mg Tablet 75 Mg PO DAILY Glyburide 5 Mg Tablet 1 Tab PO BIDWMEALS Lisinopril 20 Mg Tablet 1 Tab PO DAILY Vitals/I & O Vital Sign - Last 24 Hours 06/03/16 06/03/16 06/03/16 06/03/16 11:00 12:00 12:00 13:00 Temp 98.6 98.6 Pulse 74 68 80 Resp 17 31 15 B/P 119/49 140/63 141/61 Pulse Ox 96 96 94 O2 Delivery Room Air Room Air Room Air Room Air 06/03/16 06/03/16 06/03/16 06/03/16 14:00 15:00 16:00 16:00 Temp 99.3 99.3 Pulse 91 80 76 Resp 20 29 19 B/P 151/65 133/54 122/56 Pulse Ox 96 99 91 O2 Delivery Room Air Room Air Room Air Room Air 06/03/16 06/03/16 06/03/16 06/03/16 17:00 18:00 18:04 19:00 Pulse 76 80 76 77 Resp 19 31 20 B/P 118/56 145/64 118/56 113/50 Pulse Ox 99 96 95 O2 Delivery Room Air Room Air Room Air 06/03/16 06/03/16 06/03/16 06/03/16 20:00 20:00 20:48 21:00 Temp 99.3 99.3 Pulse 78 79 78 Resp 20 21 B/P 116/53 116/53 121/57 Pulse Ox 93 92 O2 Delivery Room Air Room Air Room Air 2/9/17 06/03/16 06/03/16 06/04/16 22:00 23:00 23:59 00:00 Temp 99.5 99.5 Pulse 74 81 74 Resp 26 18 16 B/P 135/60 125/57 133/59 Pulse Ox 95 96 95 O2 Delivery Room Air Room Air Room Air Room Air 06/04/16 06/04/16 06/04/16 06/04/16 01:00 02:00 03:00 03:49 Pulse 75 82 76 Resp 19 30 22 B/P 140/64 132/61 134/58 Pulse Ox 94 92 93 O2 Delivery Room Air Room Air Room Air Room Air 06/04/16 06/04/16 06/04/16 04:00 05:00 06:00 Temp 99.9 99.9 Pulse 75 71 74 Resp 16 15 19 B/P 138/63 139/61 144/66 Pulse Ox 92 96 92 O2 Delivery Room Air Room Air Room Air Intake and Output 06/03/16 06/03/16 06/04/16 15:00 23:00 07:00 Intake Total 885 ml 460 ml 0 ml Output Total 100 ml 100 ml 175 ml Balance 785 ml 360 ml -175 ml SELMA LALA MD Jun 04, 2016 10:27
[2016-06-04] MEDS ORDERED: MAGNESIUM SULFATE 1GM 100 ML IV ONE (10:30)
[2016-06-04] MEDS: HYDRALAZINE 50 MG TABLET PO SCH ×2 (12:49→21:10)
[2016-06-04] MEDS: ISOSORBIDE MONONITRATE ER 30 MG TAB.ER.24H PO SCH (12:49)
[2016-06-04] MEDS: LISINOPRIL 20 MG TABLET PO SCH (12:49)
[2016-06-04] MEDS: CARVEDILOL 12.5 MG TABLET PO SCH ×2 (12:50→17:00)
--- NOTE | 2016-06-04 14:16 | PDOC ---
NABILA TOLEDO PRISM INSPECTOR 06/04/16 1416: CARDIO Progress Notes Date and Time Date of Service 06/04/16 Time of Evaluation 1050 Subjective Subjective: No Chest Pain, No shortness of breath, No Palpitations, No Dizziness, Other (tired. on HD) Vitals Vitals Vital Signs Date Time Temp Pulse Resp B/P Pulse Ox O2 Delivery O2 Flow Rate FiO2 06/04/16 12:50 74 164/68 06/04/16 12:00 99.6 21 98 Room Air 99.6 Weight Weight [ ] Input and Output Intake and Output Intake and Output 06/04/16 07:00 Intake Total 1345 ml Output Total 375 ml Balance 970 ml Intake Oral 1345 ml Output Urine Total 375 ml # Bowel Movements 1 Laboratory Labs Laboratory Tests Test 06/03/16 17:59 06/04/16 06:00 06/04/16 11:58 Glucose (Fingerstick) 170mg/dL (70-99) 96mg/dL (70-99) White Blood Count 5.9x10^3/uL (4.0-11.0) Red Blood Count 2.29x10^6/uL (3.50-5.40) Hemoglobin 7.0g/dL (12.0-15.5) Hematocrit 21.4% (36.0-47.0) Mean Corpuscular Volume 93fL (79-100) Mean Corpuscular Hemoglobin 31pg (25-35) Mean Corpuscular Hemoglobin Concent 33g/dL (31-37) Red Cell Distribution Width 15.0% (11.5-14.5) Platelet Count 157x10^3/uL (140-400) Neutrophils (%) (Auto) 62% (31-73) Lymphocytes (%) (Auto) 22% (24-48) Monocytes (%) (Auto) 12% (0-9) Eosinophils (%) (Auto) 3% (0-3) Basophils (%) (Auto) 1% (0-3) Neutrophils # (Auto) 3.7x10^3uL (1.8-7.7) Lymphocytes # (Auto) 1.3x10^3/uL (1.0-4.8) Monocytes # (Auto) 0.7x10^3/uL (0.0-1.1) Eosinophils # (Auto) 0.2x10^3/uL (0.0-0.7) Basophils # (Auto) 0.0x10^3/uL (0.0-0.2) Sodium Level 140mmol/L (136-145) Potassium Level 4.0mmol/L (3.5-5.1) Chloride Level 104mmol/L (98-107) Carbon Dioxide Level 29mmol/L (21-32) Anion Gap 7 (6-14) Blood Urea Nitrogen 19mg/dL (7-20) Creatinine 3.1mg/dL (0.6-1.0) Estimated GFR (Cockcroft-Gault) 15.4 Glucose Level 147mg/dL (70-99) Calcium Level 7.8mg/dL (8.5-10.1) Phosphorus Level 3.5mg/dL (2.6-4.7) Magnesium Level 1.7mg/dL (1.8-2.4) Albumin 2.1g/dL (3.4-5.0) Physical Exam HEENT: Neck Supple W Full Motion Chest: Symmetric LUNGS: Other (diminished bases ) Heart: S1S2, RRR, other (2/6 systolic murmur ) Abdomen: Soft N/T Extremities: 2+ Dorsalis Pedis, No Edema Neurology: alert, oriented, follow commands Assessment Assessment 1. Acute on chronic combined systolic and diastolic HF 2. NSTEMI 3. CAD 4. Ischemic cardiomyopathy; LVEF 25% 5. Malignant HTN 6. HLP 7. ZORAN with CKD, HD initiated 8. Noncompliance secondary to financial constraints. Recommendations Remains stable, CP free. Continue medical management. May transfer to [facility]. Fluid offloading in HD per farmworker pullet farm/case sealer following for assistance Continue supportive care JITENDRA COBURN MD 06/04/161920: CARDIO Progress Notes Plan Plan Patient seen and examined. Agree with above nurse practitioner note. No acute events overnight. Normal cardiac exam. Blood pressure and heart rate are well controlled. Labs and medications reviewed. Continue supportive care from a cardiac perspective. No further testing necessary at this time. If her hemoglobin has been stable we could ultimately consider outpatient cardiac catheterization versus inpatient testing as necessary depending on her symptoms. Would ultimately favor 2 weeks of Depilated therapy to ensure that she does not have any significant bleeding problems prior to considering cardiac catheterization. NABILA TOLEDO APRN Jun 04, 2016 14:16 JITENDRA COBURN MD Jun 04, 2016 19:21
[2016-06-04] MEDS: ATORVASTATIN CALCIUM 40 MG TABLET. PO SCH (21:10)
[2016-06-05] VITALS (7 sets, daily range): BP systolic 115–163; BP diastolic 53–72
[2016-06-05 05:19] LABS: BASO % 1 % (0-3); EOS % 4 % (0-3); LYMPH # 1.3 x10^3/uL (1.0-4.8); LYMPH % 20 % (24-48); MEAN CORPUSCULAR HEMOGLOBIN 31 pg (25-35); MEAN CORPUSCULAR HGB CONC 34 g/dL (31-37); MEAN CORPUSCULAR VOLUME 92 fL (79-100); MONO % 11 % (0-9); NEUT % 64 % (31-73); PLATELET COUNT 154 x10^3/uL (140-400); RED BLOOD COUNT 2.22 x10^6/uL (3.50-5.40); RED CELL DISTRIBUTION WIDTH 14.8 % (11.5-14.5); WHITE BLOOD COUNT 6.4 x10^3/uL (4.0-11.0)
[2016-06-05 05:25] LABS: ALBUMIN 2.1 g/dL (3.4-5.0); CALCIUM 7.8 mg/dL (8.5-10.1); CREATININE 2.7 mg/dL (0.6-1.0); PHOSPHORUS 3.6 mg/dL (2.6-4.7); POTASSIUM 4.2 mmol/L (3.5-5.1)
[2016-06-05 05:36] LABS: HEMATOCRIT 20.4 % (36.0-47.0); HEMOGLOBIN 6.9 g/dL (12.0-15.5)
[2016-06-05] MEDS: INSULIN ASPART 300 UNITS/3 ML INSULN.PEN SQ SCH ×3 (08:00→18:40)
[2016-06-05] MEDS: CLOPIDOGREL BISULFATE 75 MG TABLET PO SCH (08:00)
[2016-06-05] MEDS: ISOSORBIDE MONONITRATE ER 30 MG TAB.ER.24H PO SCH (09:25)
[2016-06-05] MEDS: LISINOPRIL 20 MG TABLET PO SCH (09:26)
[2016-06-05] MEDS: ASPIRIN ENTERIC COATED 81 MG TABLET.DR. PO SCH (09:26)
[2016-06-05] MEDS: CARVEDILOL 12.5 MG TABLET PO SCH ×2 (09:26→18:37)
[2016-06-05] MEDS: HYDRALAZINE 50 MG TABLET PO SCH ×2 (09:27→21:14)
--- NOTE | 2016-06-05 10:39 | PDOC ---
Provider Note Provider Note Stop lab draws. Stop plavix supportive care. No further CV recs. Ok to DC with ASA only. Will need social work eval likely. Thx. JITENDRA COBURN MD Jun 05, 2016 10:39
--- NOTE | 2016-06-05 11:57 | PDOC ---
PROGRESS NOTES Chief Complaint Chief Complaint cc: sob A//P 1. Acute on chronic systolic congestive heart failure. 2. Icx-[id number]-igysmrh elevation myocardial infarction. 3. ZORAN 4. Ischemic cardiomyopathy. 5. Malignant hypertension, Better 6. Anemia 7. Hyperlipidemia. 8. Psoriasis. 9. CAD 10. Anemia Plan HD nephrology SW to arrange out pt HD BP controlled, low hemoglobin but pt declined to have blood products due to yarsanism reasons. risks and benefits explained. SSI Lipitor labs reviewed Monitor hemoglobin Prognosis guarded. History of Present Illness History of Present Illness sob better no fever no chills. no chest pain Vitals Vitals Vital Signs Date Time Temp Pulse Resp B/P Pulse Ox O2 Delivery O2 Flow Rate FiO2 06/05/16 11:00 98.6 69 19 115/53 Room Air 98.6 06/05/16 03:22 97 06/04/16 14:25 2.0 Physical Exam General: Alert, Oriented X3, Cooperative, moderate distress Heart: Normal S1, Normal S2, Other (tele: ST, 2/6 systolci murmur ) Lungs: Clear, Other Abdomen: Soft, No tenderness Extremities: No cyanosis, No edema, Normal pulses Skin: No breakdown, No significant lesion, Other (psoriasis ) Labs LABS Laboratory Tests Test 06/04/16 11:58 06/04/16 16:57 06/04/16 21:14 06/05/16 04:25 Glucose (Fingerstick) 96mg/dL (70-99) 186mg/dL (70-99) 178mg/dL (70-99) White Blood Count 6.4x10^3/uL (4.0-11.0) Red Blood Count 2.22x10^6/uL (3.50-5.40) Hemoglobin 6.9g/dL (12.0-15.5) Hematocrit 20.4% (36.0-47.0) Mean Corpuscular Volume 92fL (79-100) Mean Corpuscular Hemoglobin 31pg (25-35) Mean Corpuscular Hemoglobin Concent 34g/dL (31-37) Red Cell Distribution Width 14.8% (11.5-14.5) Platelet Count 154x10^3/uL (140-400) Neutrophils (%) (Auto) 64% (31-73) Lymphocytes (%) (Auto) 20% (24-48) Monocytes (%) (Auto) 11% (0-9) Eosinophils (%) (Auto) 4% (0-3) Basophils (%) (Auto) 1% (0-3) Neutrophils # (Auto) 4.1x10^3uL (1.8-7.7) Lymphocytes # (Auto) 1.3x10^3/uL (1.0-4.8) Monocytes # (Auto) 0.7x10^3/uL (0.0-1.1) Eosinophils # (Auto) 0.3x10^3/uL (0.0-0.7) Basophils # (Auto) 0.0x10^3/uL (0.0-0.2) Sodium Level 138mmol/L (136-145) Potassium Level 4.2mmol/L (3.5-5.1) Chloride Level 104mmol/L (98-107) Carbon Dioxide Level 28mmol/L (21-32) Anion Gap 6 (6-14) Blood Urea Nitrogen 16mg/dL (7-20) Creatinine 2.7mg/dL (0.6-1.0) Estimated GFR (Cockcroft-Gault) 18.0 Glucose Level 160mg/dL (70-99) Calcium Level 7.8mg/dL (8.5-10.1) Phosphorus Level 3.6mg/dL (2.6-4.7) Magnesium Level 1.9mg/dL (1.8-2.4) Albumin 2.1g/dL (3.4-5.0) Test 06/05/16 07:46 Glucose (Fingerstick) 131mg/dL (70-99) Assessment and Plan Assessmemt and Plan Problems Medical Problems: (1) Congestive heart failure Status: Acute (2) NSTEMI (non-ST elevated myocardial infarction) Status: Acute Problems: Comment Review of Relevant I have reviewed the following items fede (where applicable) has been applied. Labs Laboratory Tests Test 06/03/16 13:46 06/03/16 17:59 06/04/16 06:00 06/04/16 11:58 Glucose (Fingerstick) 99mg/dL (70-99) 170mg/dL (70-99) 96mg/dL (70-99) White Blood Count 5.9x10^3/uL (4.0-11.0) Red Blood Count 2.29x10^6/uL (3.50-5.40) Hemoglobin 7.0g/dL (12.0-15.5) Hematocrit 21.4% (36.0-47.0) Mean Corpuscular Volume 93fL (79-100) Mean Corpuscular Hemoglobin 31pg (25-35) Mean Corpuscular Hemoglobin Concent 33g/dL (31-37) Red Cell Distribution Width 15.0% (11.5-14.5) Platelet Count 157x10^3/uL (140-400) Neutrophils (%) (Auto) 62% (31-73) Lymphocytes (%) (Auto) 22% (24-48) Monocytes (%) (Auto) 12% (0-9) Eosinophils (%) (Auto) 3% (0-3) Basophils (%) (Auto) 1% (0-3) Neutrophils # (Auto) 3.7x10^3uL (1.8-7.7) Lymphocytes # (Auto) 1.3x10^3/uL (1.0-4.8) Monocytes # (Auto) 0.7x10^3/uL (0.0-1.1) Eosinophils # (Auto) 0.2x10^3/uL (0.0-0.7) Basophils # (Auto) 0.0x10^3/uL (0.0-0.2) Sodium Level 140mmol/L (136-145) Potassium Level 4.0mmol/L (3.5-5.1) Chloride Level 104mmol/L (98-107) Carbon Dioxide Level 29mmol/L (21-32) Anion Gap 7 (6-14) Blood Urea Nitrogen 19mg/dL (7-20) Creatinine 3.1mg/dL (0.6-1.0) Estimated GFR (Cockcroft-Gault) 15.4 Glucose Level 147mg/dL (70-99) Calcium Level 7.8mg/dL (8.5-10.1) Phosphorus Level 3.5mg/dL (2.6-4.7) Magnesium Level 1.7mg/dL (1.8-2.4) Albumin 2.1g/dL (3.4-5.0) Test 06/04/16 16:57 06/04/16 21:14 06/05/16 04:25 06/05/16 07:46 Glucose (Fingerstick) 186mg/dL (70-99) 178mg/dL (70-99) 131mg/dL (70-99) White Blood Count 6.4x10^3/uL (4.0-11.0) Red Blood Count 2.22x10^6/uL (3.50-5.40) Hemoglobin 6.9g/dL (12.0-15.5) Hematocrit 20.4% (36.0-47.0) Mean Corpuscular Volume 92fL (79-100) Mean Corpuscular Hemoglobin 31pg (25-35) Mean Corpuscular Hemoglobin Concent 34g/dL (31-37) Red Cell Distribution Width 14.8% (11.5-14.5) Platelet Count 154x10^3/uL (140-400) Neutrophils (%) (Auto) 64% (31-73) Lymphocytes (%) (Auto) 20% (24-48) Monocytes (%) (Auto) 11% (0-9) Eosinophils (%) (Auto) 4% (0-3) Basophils (%) (Auto) 1% (0-3) Neutrophils # (Auto) 4.1x10^3uL (1.8-7.7) Lymphocytes # (Auto) 1.3x10^3/uL (1.0-4.8) Monocytes # (Auto) 0.7x10^3/uL (0.0-1.1) Eosinophils # (Auto) 0.3x10^3/uL (0.0-0.7) Basophils # (Auto) 0.0x10^3/uL (0.0-0.2) Sodium Level 138mmol/L (136-145) Potassium Level 4.2mmol/L (3.5-5.1) Chloride Level 104mmol/L (98-107) Carbon Dioxide Level 28mmol/L (21-32) Anion Gap 6 (6-14) Blood Urea Nitrogen 16mg/dL (7-20) Creatinine 2.7mg/dL (0.6-1.0) Estimated GFR (Cockcroft-Gault) 18.0 Glucose Level 160mg/dL (70-99) Calcium Level 7.8mg/dL (8.5-10.1) Phosphorus Level 3.6mg/dL (2.6-4.7) Magnesium Level 1.9mg/dL (1.8-2.4) Albumin 2.1g/dL (3.4-5.0) Laboratory Tests Test 06/04/16 11:58 06/04/16 16:57 06/04/16 21:14 06/05/16 04:25 Glucose (Fingerstick) 96mg/dL (70-99) 186mg/dL (70-99) 178mg/dL (70-99) White Blood Count 6.4x10^3/uL (4.0-11.0) Red Blood Count 2.22x10^6/uL (3.50-5.40) Hemoglobin 6.9g/dL (12.0-15.5) Hematocrit 20.4% (36.0-47.0) Mean Corpuscular Volume 92fL (79-100) Mean Corpuscular Hemoglobin 31pg (25-35) Mean Corpuscular Hemoglobin Concent 34g/dL (31-37) Red Cell Distribution Width 14.8% (11.5-14.5) Platelet Count 154x10^3/uL (140-400) Neutrophils (%) (Auto) 64% (31-73) Lymphocytes (%) (Auto) 20% (24-48) Monocytes (%) (Auto) 11% (0-9) Eosinophils (%) (Auto) 4% (0-3) Basophils (%) (Auto) 1% (0-3) Neutrophils # (Auto) 4.1x10^3uL (1.8-7.7) Lymphocytes # (Auto) 1.3x10^3/uL (1.0-4.8) Monocytes # (Auto) 0.7x10^3/uL (0.0-1.1) Eosinophils # (Auto) 0.3x10^3/uL (0.0-0.7) Basophils # (Auto) 0.0x10^3/uL (0.0-0.2) Sodium Level 138mmol/L (136-145) Potassium Level 4.2mmol/L (3.5-5.1) Chloride Level 104mmol/L (98-107) Carbon Dioxide Level 28mmol/L (21-32) Anion Gap 6 (6-14) Blood Urea Nitrogen 16mg/dL (7-20) Creatinine 2.7mg/dL (0.6-1.0) Estimated GFR (Cockcroft-Gault) 18.0 Glucose Level 160mg/dL (70-99) Calcium Level 7.8mg/dL (8.5-10.1) Phosphorus Level 3.6mg/dL (2.6-4.7) Magnesium Level 1.9mg/dL (1.8-2.4) Albumin 2.1g/dL (3.4-5.0) Test 06/05/16 07:46 Glucose (Fingerstick) 131mg/dL (70-99) Microbiology 06/04/16 Blood Culture - Preliminary, Resulted NO GROWTH AFTER 1 DAY Medications Current Medications Aspirin 324 mg 324 mg 1X ONCE PO Last administered on 06/01/16 12:59; Start at 12:45; Stop 06/01/16 at 12:48; Status DC Heparin Sodium/ Dextrose 500 ml @ 19 mls/hr CONT PRN IV SEE I/O RECORD Last administered on 06/02/16 14:45; Start 06/01/16 at 12:45; Stop 06/03/16 at 15:30; Status DC Heparin Sodium (Porcine) 1,950 unit PRN Q6HRS PRN IV FOR UFH LEVEL LESS THAN 0.2 Last administered on 06/01/16 13:01; Start 06/01/16 at 12:45; Stop 06/03/16 at 15:30; Status DC Ondansetron HCl (Zofran) 4 mg PRN Q8HRS PRN IV NAUSEA/VOMITING; Start 06/01/16 at 12:45; Stop 06/02/16 at 12:44; Status DC Morphine Sulfate 4 mg PRN Q2HR PRN IV PAIN Last administered on 06/01/16 14:03 ; Start 06/01/16 at 12:45; Stop 06/02/16 at 12:44; Status DC Nitroglycerin (Nitrostat) 0.4 mg PRN Q5MIN PRN SL CHEST PAIN Last administered on 06/01/16 14:03; Start 06/01/16 at 12:45; Stop 06/02/16 at 12:44; Status DC Amlodipine Besylate (Norvasc) 5 mg DAILYWLUN PO Last administered on 06/02/16 08:32; Start 06/01/16 at 14:00; Stop 06/02/16 at 16:02; Status DC Aspirin (Ecotrin) 81 mg DAILYWBKFT PO Last administered on 06/05/16 09:26; Start 06/01/16 at 14:00 Atorvastatin Calcium (Lipitor) 80 mg QHS PO Last administered on 06/04/16 21: 10; Start 06/01/16 at 21:00 Carvedilol (Coreg) 25 mg BIDWMEALS PO Last administered on 06/05/16 09:26; Start 06/01/16 at 17:00 Clopidogrel Bisulfate (Plavix) 75 mg DAILY PO Last administered on 06/01/16 14: 28; Start 06/01/16 at 14:00; Stop 06/02/16 at 08:41; Status DC Isosorbide Mononitrate (Imdur) 30 mg DAILY PO Last administered on 06/05/16 09 :25; Start 06/01/16 at 14:00 Furosemide (Lasix) 40 mg 1X ONCE IVP Last administered on 06/01/16 14:30; Start 06/01/16 at 14:00; Stop 06/01/16 at 14:23; Status DC Furosemide 40 mg 40 mg 1X ONCE IVP Last administered on 06/01/16 14:30; Start 06/01/16 at 14:30; Stop 06/01/16 at 14:38; Status DC Nitroglycerin/ Dextrose (Nitroglycerin Drip) 250 ml @ 0 mls/hr CONT PRN IV SEE I/O RECORD Last administered on 06/01/16 15:23; Start 06/01/16 at 14:30; Stop 06/02/16 at 16:02; Status DC Acetaminophen (Tylenol) 325 mg PRN Q6HRS PRN PO MILD PAIN / TEMP; Start at 15:00 Acetaminophen/ Hydrocodone Bitart (Lortab 5/325) 1 tab PRN Q6HRS PRN PO MODERATE TO SEVERE PAIN; Start 06/01/16 at 15:00 Hydralazine HCl (Apresoline) 10 mg PRN Q4HRS PRN IVP ELEVATED BP, SEE COMMENTS ; Start 06/01/16 at 15:00 Ondansetron HCl (Zofran) 4 mg PRN Q8HRS PRN IV NAUSEA/VOMITING; Start 06/01/16 at 15:00 Albuterol Sulfate (Ventolin Neb Soln) 2.5 mg PRN Q4HRS PRN NEB SHORTNESS OF BREATH; Start 06/01/16 at 15:00 Insulin Aspart (Novolog) 0-7 UNITS TIDWMEALS SQ Last administered on 06/04/16 17:03; Start 06/01/16 at 17:00 Dextrose 12.5 gm PRN Q15MIN PRN IV SEE COMMENTS; Start 06/01/16 at 15:00 Info 1 each 1 each PRN DAILY PRN MC SEE COMMENTS Last administered on 06/03/16 09:38; Start 06/01/16 at 17:00; Stop 06/04/16 at 08:25; Status DC Magnesium Sulfate/ Dextrose (Magnesium Sulfate PREMIX 2GM) 50 ml @ 25 mls/hr PRN DAILY PRN IV for Mag < 1.7 on am labs; Start 06/02/16 at 11:15 Lidocaine/Sodium Bicarbonate (Buffered Lidocaine 1%) 3 ml 1X ONCE IJ Last administered on 06/02/16 14:03; Start 06/02/16 at 12:30; Stop 06/02/16 at 12:34; Status DC Heparin Sodium (Porcine) 2,400 unit 1X ONCE INT CAT Last administered on 14:04; Start 06/02/16 at 12:30; Stop 06/02/16 at 12:34; Status DC Heparin Sodium/ Sodium Chloride 60 unit 1X ONCE IV Last administered on 14:04; Start 06/02/16 at 12:30; Stop 06/02/16 at 12:34; Status DC Lisinopril (Prinivil) 20 mg DAILY PO Last administered on 06/05/16 09:26; Start 06/02/16 at 16:00 Hydralazine HCl 50 mg 50 mg BID PO Last administered on 06/05/16 09:27; Start 06/02/16 at 21:00 Sodium Chloride (Iv Sodium Chloride 0.9% 1000ml Bag) 1,000 ml @ 1,000 mls/hr Q1H PRN IV hypotension; Start 06/02/16 at 18:28; Stop 06/03/16 at 00:27; Status DC Diphenhydramine HCl (Benadryl) 25 mg 1X PRN PRN IV ITCHING; Start 06/02/16 at 18 :30; Stop 06/03/16 at 18:29; Status DC Diphenhydramine HCl (Benadryl) 25 mg 1X PRN PRN IV ITCHING; Start 06/02/16 at 18 :30; Stop 06/03/16 at 18:29; Status DC Sodium Chloride (Normal Saline Flush) 10 ml 1X PRN PRN IV AP catheter pack; Start 06/02/16 at 18:30; Stop 06/03/16 at 18:29; Status DC Sodium Chloride 10 ml 10 ml 1X PRN PRN IV SPOOL SALVAGER catheter pack; Start 06/02/16 at 18 :30; Stop 06/03/16 at 18:29; Status DC Sodium Chloride (Iv Sodium Chloride 0.9% 1000ml Bag) 1,000 ml @ 400 mls/hr Q2H30M PRN IV PATENCY; Start 06/02/16 at 18:28; Stop 06/03/16 at 06:27; Status DC Info (PHARMACY MONITORING -- do not chart) 1 each PRN DAILY PRN MC SEE COMMENTS ; Start 06/02/16 at 18:30 Info (PHARMACY MONITORING -- do not chart) 1 each PRN DAILY PRN MC SEE COMMENTS ; Start 06/03/16 at 10:30; Status UNV Info (PHARMACY MONITORING -- do not chart) 1 each PRN DAILY PRN MC SEE COMMENTS ; Start 06/03/16 at 10:30; Status Cancel Darbepoetin Malick (Aranesp) 60 mcg WEEKLYHS SQ Last administered on 06/03/16t 20: 48; Start 06/03/16 at 21:00 Clopidogrel Bisulfate (Plavix) 75 mg DAILYWBKFT PO ; Start 06/04/16 at 08:00; Stop 06/04/16 at 08:00; Status DC Clopidogrel Bisulfate 75 mg 75 mg DAILYWBKFT PO Last administered on 06/04/16 08:25; Start 06/03/16 at 15:30 Sodium Chloride (Iv Sodium Chloride 0.9% 1000ml Bag) 1,000 ml @ 1,000 mls/hr Q1H PRN IV hypotension; Start 06/04/16 at 08:11; Stop 06/04/16 at 15:00; Status DC Diphenhydramine HCl (Benadryl) 25 mg 1X PRN PRN IV ITCHING; Start 06/04/16 at 08:15; Stop 06/04/16 at 15:00; Status DC Diphenhydramine HCl (Benadryl) 25 mg 1X PRN PRN IV ITCHING; Start 06/04/16 at 08:15; Stop 06/04/16 at 15:00; Status DC Sodium Chloride (Normal Saline Flush) 10 ml 1X PRN PRN IV AP catheter pack; Start 06/04/16 at 08:15; Stop 06/04/16 at 15:00; Status DC Sodium Chloride 10 ml 10 ml 1X PRN PRN IV SPOOL SALVAGER catheter pack; Start 06/04/16 at 08:15; Stop 06/04/16 at 15:00; Status DC Sodium Chloride (Iv Sodium Chloride 0.9% 1000ml Bag) 1,000 ml @ 400 mls/hr Q2H30M PRN IV PATENCY; Start 06/04/16 at 08:11; Stop 06/04/16 at 21:00; Status DC Info 1 each 1 each PRN DAILY PRN MC SEE COMMENTS; Start 06/04/16 at 08:15; Status UNV Magnesium Sulfate/ Dextrose (Magnesium Sulfate PREMIX 1GM) 100 ml @ 100 mls/hr 1X ONCE IV Last administered on 06/04/16t 12:36; Start 06/04/16 at 10:30; Stop 06/04/16 at 11:29; Status DC Active Scripts Active Lisinopril 20 Mg Tablet 20 Mg PO QHS Isosorbide Mononitrate Er (Isosorbide Mononitrate) 30 Mg Tab.er.24h 30 Mg PO DAILY Hydralazine Hcl 50 Mg Tablet 100 Mg PO TID Carvedilol 12.5 Mg Tablet 25 Mg PO BIDWMEALS Atorvastatin Calcium 40 Mg Tablet 80 Mg PO QHS Aspirin Ec (Aspirin) 81 Mg Tablet.dr 81 Mg PO DAILYWBKFT Amlodipine Besylate 5 Mg Tablet 5 Mg PO DAILYWLUN Reported Clopidogrel (Clopidogrel Bisulfate) 75 Mg Tablet 75 Mg PO DAILY Glyburide 5 Mg Tablet 1 Tab PO BIDWMEALS Lisinopril 20 Mg Tablet 1 Tab PO DAILY Vitals/I & O Vital Sign - Last 24 Hours 06/04/16 06/04/16 06/04/16 06/04/16 12:00 12:49 12:49 12:49 Temp 99.6 99.6 Pulse 74 74 74 74 Resp 21 B/P 162/75 164/68 164/68 164/68 Pulse Ox 98 O2 Delivery Room Air 06/04/16 06/04/16 06/04/16 06/04/16 12:50 14:25 17:00 17:03 Temp 98.6 98.6 Pulse 74 71 71 Resp 18 B/P 164/68 126/58 126/58 Pulse Ox 98 O2 Delivery Room Air Room Air O2 Flow Rate 2.0 06/04/16 06/04/16 06/04/16 06/04/16 19:00 20:00 21:10 23:00 Temp 99.2 99.2 Pulse 66 69 73 Resp 21 19 B/P 141/69 129/62 Pulse Ox 96 O2 Delivery Room Air Room Air Room Air 06/05/16 06/05/16 06/05/16 06/05/16 00:15 00:15 03:22 07:00 Temp 98.4 98.2 98.0 98.4 98.2 98.0 Pulse 72 73 69 Resp 18 18 15 B/P 129/63 142/65 142/66 Pulse Ox 99 97 O2 Delivery Room Air Room Air Room Air Room Air 06/05/16 06/05/16 06/05/16 06/05/16 08:00 09:25 09:26 09:26 Pulse 73 73 73 B/P 142/65 142/65 142/65 O2 Delivery Room Air 06/05/16 06/05/16 09:27 11:00 Temp 98.6 98.6 Pulse 73 69 Resp 19 B/P 142/65 115/53 O2 Delivery Room Air Intake and Output 06/04/16 06/04/16 06/05/16 15:00 23:00 07:00 Intake Total 200 ml 240 ml 100 ml Balance 200 ml 240 ml 100 ml SELMA LALA MD Jun 05, 2016 11:57
--- NOTE | 2016-06-05 14:34 | PDOC ---
PROGRESS NOTES Subjective Subjective SEEN IN FOLLOW UP OF NEW ESRD Objective Objective Vital Signs Date Time Temp Pulse Resp B/P Pulse Ox O2 Delivery O2 Flow Rate FiO2 06/05/16 11:00 98.6 69 19 115/53 Room Air 98.6 06/05/16 03:22 97 06/04/16 14:25 2.0 Intake and Output 06/05/16 07:00 Intake Total 540 ml Balance 540 ml Intake Oral 540 ml # Voids 4 Physical Exam Abdomen: Normal bowel sounds, Soft, No tenderness, No hepatosplenomegaly, No masses Heart: Regular rate, Normal S1, Normal S2, No murmurs, Gallops Extremities: No clubbing, No cyanosis, No edema, Normal pulses, No tenderness/ swelling General: Alert Lungs: Clear to auscultation, Normal air movement Diagnosis RENAL FAILURE: ESRD ANEMIA: Chronic diseases (ESRD) Assessment Assessment Problems Medical Problems: (1) Congestive heart failure Status: Acute (2) NSTEMI (non-ST elevated myocardial infarction) Status: Acute Plan Plan of Care FOR DIALYSIS TUESDAY. SHE IS ORIENTAL ORTHODOX AND DECLINES BLOOD TRANSFUSION Comment Review of Relevant I have reviewed the following items fede (where applicable) has been applied. Labs Laboratory Tests Test 06/03/16 17:59 06/04/16 06:00 06/04/16 11:58 06/04/16 16:57 Glucose (Fingerstick) 170mg/dL (70-99) 96mg/dL (70-99) 186mg/dL (70-99) White Blood Count 5.9x10^3/uL (4.0-11.0) Red Blood Count 2.29x10^6/uL (3.50-5.40) Hemoglobin 7.0g/dL (12.0-15.5) Hematocrit 21.4% (36.0-47.0) Mean Corpuscular Volume 93fL (79-100) Mean Corpuscular Hemoglobin 31pg (25-35) Mean Corpuscular Hemoglobin Concent 33g/dL (31-37) Red Cell Distribution Width 15.0% (11.5-14.5) Platelet Count 157x10^3/uL (140-400) Neutrophils (%) (Auto) 62% (31-73) Lymphocytes (%) (Auto) 22% (24-48) Monocytes (%) (Auto) 12% (0-9) Eosinophils (%) (Auto) 3% (0-3) Basophils (%) (Auto) 1% (0-3) Neutrophils # (Auto) 3.7x10^3uL (1.8-7.7) Lymphocytes # (Auto) 1.3x10^3/uL (1.0-4.8) Monocytes # (Auto) 0.7x10^3/uL (0.0-1.1) Eosinophils # (Auto) 0.2x10^3/uL (0.0-0.7) Basophils # (Auto) 0.0x10^3/uL (0.0-0.2) Sodium Level 140mmol/L (136-145) Potassium Level 4.0mmol/L (3.5-5.1) Chloride Level 104mmol/L (98-107) Carbon Dioxide Level 29mmol/L (21-32) Anion Gap 7 (6-14) Blood Urea Nitrogen 19mg/dL (7-20) Creatinine 3.1mg/dL (0.6-1.0) Estimated GFR (Cockcroft-Gault) 15.4 Glucose Level 147mg/dL (70-99) Calcium Level 7.8mg/dL (8.5-10.1) Phosphorus Level 3.5mg/dL (2.6-4.7) Magnesium Level 1.7mg/dL (1.8-2.4) Albumin 2.1g/dL (3.4-5.0) Test 06/04/16 21:14 06/05/16 04:25 06/05/16 07:46 06/05/16 11:05 Glucose (Fingerstick) 178mg/dL (70-99) 131mg/dL (70-99) 261mg/dL (70-99) White Blood Count 6.4x10^3/uL (4.0-11.0) Red Blood Count 2.22x10^6/uL (3.50-5.40) Hemoglobin 6.9g/dL (12.0-15.5) Hematocrit 20.4% (36.0-47.0) Mean Corpuscular Volume 92fL (79-100) Mean Corpuscular Hemoglobin 31pg (25-35) Mean Corpuscular Hemoglobin Concent 34g/dL (31-37) Red Cell Distribution Width 14.8% (11.5-14.5) Platelet Count 154x10^3/uL (140-400) Neutrophils (%) (Auto) 64% (31-73) Lymphocytes (%) (Auto) 20% (24-48) Monocytes (%) (Auto) 11% (0-9) Eosinophils (%) (Auto) 4% (0-3) Basophils (%) (Auto) 1% (0-3) Neutrophils # (Auto) 4.1x10^3uL (1.8-7.7) Lymphocytes # (Auto) 1.3x10^3/uL (1.0-4.8) Monocytes # (Auto) 0.7x10^3/uL (0.0-1.1) Eosinophils # (Auto) 0.3x10^3/uL (0.0-0.7) Basophils # (Auto) 0.0x10^3/uL (0.0-0.2) Sodium Level 138mmol/L (136-145) Potassium Level 4.2mmol/L (3.5-5.1) Chloride Level 104mmol/L (98-107) Carbon Dioxide Level 28mmol/L (21-32) Anion Gap 6 (6-14) Blood Urea Nitrogen 16mg/dL (7-20) Creatinine 2.7mg/dL (0.6-1.0) Estimated GFR (Cockcroft-Gault) 18.0 Glucose Level 160mg/dL (70-99) Calcium Level 7.8mg/dL (8.5-10.1) Phosphorus Level 3.6mg/dL (2.6-4.7) Magnesium Level 1.9mg/dL (1.8-2.4) Albumin 2.1g/dL (3.4-5.0) Laboratory Tests Test 06/04/16 16:57 06/04/16 21:14 06/05/16 04:25 06/05/16 07:46 Glucose (Fingerstick) 186mg/dL (70-99) 178mg/dL (70-99) 131mg/dL (70-99) White Blood Count 6.4x10^3/uL (4.0-11.0) Red Blood Count 2.22x10^6/uL (3.50-5.40) Hemoglobin 6.9g/dL (12.0-15.5) Hematocrit 20.4% (36.0-47.0) Mean Corpuscular Volume 92fL (79-100) Mean Corpuscular Hemoglobin 31pg (25-35) Mean Corpuscular Hemoglobin Concent 34g/dL (31-37) Red Cell Distribution Width 14.8% (11.5-14.5) Platelet Count 154x10^3/uL (140-400) Neutrophils (%) (Auto) 64% (31-73) Lymphocytes (%) (Auto) 20% (24-48) Monocytes (%) (Auto) 11% (0-9) Eosinophils (%) (Auto) 4% (0-3) Basophils (%) (Auto) 1% (0-3) Neutrophils # (Auto) 4.1x10^3uL (1.8-7.7) Lymphocytes # (Auto) 1.3x10^3/uL (1.0-4.8) Monocytes # (Auto) 0.7x10^3/uL (0.0-1.1) Eosinophils # (Auto) 0.3x10^3/uL (0.0-0.7) Basophils # (Auto) 0.0x10^3/uL (0.0-0.2) Sodium Level 138mmol/L (136-145) Potassium Level 4.2mmol/L (3.5-5.1) Chloride Level 104mmol/L (98-107) Carbon Dioxide Level 28mmol/L (21-32) Anion Gap 6 (6-14) Blood Urea Nitrogen 16mg/dL (7-20) Creatinine 2.7mg/dL (0.6-1.0) Estimated GFR (Cockcroft-Gault) 18.0 Glucose Level 160mg/dL (70-99) Calcium Level 7.8mg/dL (8.5-10.1) Phosphorus Level 3.6mg/dL (2.6-4.7) Magnesium Level 1.9mg/dL (1.8-2.4) Albumin 2.1g/dL (3.4-5.0) Test 06/05/16 11:05 Glucose (Fingerstick) 261mg/dL (70-99) Microbiology 06/04/16 Blood Culture - Preliminary, Resulted NO GROWTH AFTER 1 DAY Medications Current Medications Aspirin 324 mg 324 mg 1X ONCE PO Last administered on 06/01/16 12:59; Start at 12:45; Stop 06/01/16 at 12:48; Status DC Heparin Sodium/ Dextrose 500 ml @ 19 mls/hr CONT PRN IV SEE I/O RECORD Last administered on 06/02/16 14:45; Start 06/01/16 at 12:45; Stop 06/03/16 at 15:30; Status DC Heparin Sodium (Porcine) 1,950 unit PRN Q6HRS PRN IV FOR UFH LEVEL LESS THAN 0.2 Last administered on 06/01/16 13:01; Start 06/01/16 at 12:45; Stop 06/03/16 at 15:30; Status DC Ondansetron HCl (Zofran) 4 mg PRN Q8HRS PRN IV NAUSEA/VOMITING; Start 06/01/16 at 12:45; Stop 06/02/16 at 12:44; Status DC Morphine Sulfate 4 mg PRN Q2HR PRN IV PAIN Last administered on 06/01/16 14:03 ; Start 06/01/16 at 12:45; Stop 06/02/16 at 12:44; Status DC Nitroglycerin (Nitrostat) 0.4 mg PRN Q5MIN PRN SL CHEST PAIN Last administered on 06/01/16 14:03; Start 06/01/16 at 12:45; Stop 06/02/16 at 12:44; Status DC Amlodipine Besylate (Norvasc) 5 mg DAILYWLUN PO Last administered on 06/02/16 08:32; Start 06/01/16 at 14:00; Stop 06/02/16 at 16:02; Status DC Aspirin (Ecotrin) 81 mg DAILYWBKFT PO Last administered on 06/05/16 09:26; Start 06/01/16 at 14:00 Atorvastatin Calcium (Lipitor) 80 mg QHS PO Last administered on 06/04/16 21: 10; Start 06/01/16 at 21:00 Carvedilol (Coreg) 25 mg BIDWMEALS PO Last administered on 06/05/16 09:26; Start 06/01/16 at 17:00 Clopidogrel Bisulfate (Plavix) 75 mg DAILY PO Last administered on 06/01/16 14: 28; Start 06/01/16 at 14:00; Stop 06/02/16 at 08:41; Status DC Isosorbide Mononitrate (Imdur) 30 mg DAILY PO Last administered on 06/05/16 09 :25; Start 06/01/16 at 14:00 Furosemide (Lasix) 40 mg 1X ONCE IVP Last administered on 06/01/16 14:30; Start 06/01/16 at 14:00; Stop 06/01/16 at 14:23; Status DC Furosemide 40 mg 40 mg 1X ONCE IVP Last administered on 06/01/16 14:30; Start 06/01/16 at 14:30; Stop 06/01/16 at 14:38; Status DC Nitroglycerin/ Dextrose (Nitroglycerin Drip) 250 ml @ 0 mls/hr CONT PRN IV SEE I/O RECORD Last administered on 06/01/16 15:23; Start 06/01/16 at 14:30; Stop 06/02/16 at 16:02; Status DC Acetaminophen (Tylenol) 325 mg PRN Q6HRS PRN PO MILD PAIN / TEMP; Start at 15:00 Acetaminophen/ Hydrocodone Bitart (Lortab 5/325) 1 tab PRN Q6HRS PRN PO MODERATE TO SEVERE PAIN; Start 06/01/16 at 15:00 Hydralazine HCl (Apresoline) 10 mg PRN Q4HRS PRN IVP ELEVATED BP, SEE COMMENTS ; Start 06/01/16 at 15:00 Ondansetron HCl (Zofran) 4 mg PRN Q8HRS PRN IV NAUSEA/VOMITING; Start 06/01/16 at 15:00 Albuterol Sulfate (Ventolin Neb Soln) 2.5 mg PRN Q4HRS PRN NEB SHORTNESS OF BREATH; Start 06/01/16 at 15:00 Insulin Aspart (Novolog) 0-7 UNITS TIDWMEALS SQ Last administered on 06/05/16 13:00; Start 06/01/16 at 17:00 Dextrose 12.5 gm PRN Q15MIN PRN IV SEE COMMENTS; Start 06/01/16 at 15:00 Info 1 each 1 each PRN DAILY PRN MC SEE COMMENTS Last administered on 06/03/16 09:38; Start 06/01/16 at 17:00; Stop 06/04/16 at 08:25; Status DC Magnesium Sulfate/ Dextrose (Magnesium Sulfate PREMIX 2GM) 50 ml @ 25 mls/hr PRN DAILY PRN IV for Mag < 1.7 on am labs; Start 06/02/16 at 11:15 Lidocaine/Sodium Bicarbonate (Buffered Lidocaine 1%) 3 ml 1X ONCE IJ Last administered on 06/02/16 14:03; Start 06/02/16 at 12:30; Stop 06/02/16 at 12:34; Status DC Heparin Sodium (Porcine) 2,400 unit 1X ONCE INT CAT Last administered on 14:04; Start 06/02/16 at 12:30; Stop 06/02/16 at 12:34; Status DC Heparin Sodium/ Sodium Chloride 60 unit 1X ONCE IV Last administered on 14:04; Start 06/02/16 at 12:30; Stop 06/02/16 at 12:34; Status DC Lisinopril (Prinivil) 20 mg DAILY PO Last administered on 06/05/16 09:26; Start 06/02/16 at 16:00 Hydralazine HCl 50 mg 50 mg BID PO Last administered on 06/05/16 09:27; Start 06/02/16 at 21:00 Sodium Chloride (Iv Sodium Chloride 0.9% 1000ml Bag) 1,000 ml @ 1,000 mls/hr Q1H PRN IV hypotension; Start 06/02/16 at 18:28; Stop 06/03/16 at 00:27; Status DC Diphenhydramine HCl (Benadryl) 25 mg 1X PRN PRN IV ITCHING; Start 06/02/16 at 18 :30; Stop 06/03/16 at 18:29; Status DC Diphenhydramine HCl (Benadryl) 25 mg 1X PRN PRN IV ITCHING; Start 06/02/16 at 18 :30; Stop 06/03/16 at 18:29; Status DC Sodium Chloride (Normal Saline Flush) 10 ml 1X PRN PRN IV AP catheter pack; Start 06/02/16 at 18:30; Stop 06/03/16 at 18:29; Status DC Sodium Chloride 10 ml 10 ml 1X PRN PRN 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; Start 06/02/16 at 18 :30; Stop 06/03/16 at 18:29; Status DC Sodium Chloride (Iv Sodium Chloride 0.9% 1000ml Bag) 1,000 ml @ 400 mls/hr Q2H30M PRN IV PATENCY; Start 06/02/16 at 18:28; Stop 06/03/16 at 06:27; Status DC Info (PHARMACY MONITORING -- do not chart) 1 each PRN DAILY PRN MC SEE COMMENTS ; Start 06/02/16 at 18:30 Info (PHARMACY MONITORING -- do not chart) 1 each PRN DAILY PRN MC SEE COMMENTS ; Start 06/03/16 at 10:30; Status UNV Info (PHARMACY MONITORING -- do not chart) 1 each PRN DAILY PRN MC SEE COMMENTS ; Start 06/03/16 at 10:30; Status Cancel Darbepoetin Malick (Aranesp) 60 mcg WEEKLYHS SQ Last administered on 06/03/16 20: 48; Start 06/03/16 at 21:00 Clopidogrel Bisulfate (Plavix) 75 mg DAILYWBKFT PO ; Start 06/04/16 at 08:00; Stop 06/04/16 at 08:00; Status DC Clopidogrel Bisulfate 75 mg 75 mg DAILYWBKFT PO Last administered on 06/04/16 08:25; Start 06/03/16 at 15:30 Sodium Chloride (Iv Sodium Chloride 0.9% 1000ml Bag) 1,000 ml @ 1,000 mls/hr Q1H PRN IV hypotension; Start 06/04/16 at 08:11; Stop 06/04/16 at 15:00; Status DC Diphenhydramine HCl (Benadryl) 25 mg 1X PRN PRN IV ITCHING; Start 06/04/16 at 08:15; Stop 06/04/16 at 15:00; Status DC Diphenhydramine HCl (Benadryl) 25 mg 1X PRN PRN IV ITCHING; Start 06/04/16 at 08:15; Stop 06/04/16 at 15:00; Status DC Sodium Chloride (Normal Saline Flush) 10 ml 1X PRN PRN IV AP catheter pack; Start 06/04/16 at 08:15; Stop 06/04/16 at 15:00; Status DC Sodium Chloride 10 ml 10 ml 1X PRN PRN 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; Start 06/04/16 at 08:15; Stop 06/04/16 at 15:00; Status DC Sodium Chloride (Iv Sodium Chloride 0.9% 1000ml Bag) 1,000 ml @ 400 mls/hr Q2H30M PRN IV PATENCY; Start 06/04/16 at 08:11; Stop 06/04/16 at 21:00; Status DC Info 1 each 1 each PRN DAILY PRN MC SEE COMMENTS; Start 06/04/16 at 08:15; Status UNV Magnesium Sulfate/ Dextrose (Magnesium Sulfate PREMIX 1GM) 100 ml @ 100 mls/hr 1X ONCE IV Last administered on 06/04/16t 12:36; Start 06/04/16 at 10:30; Stop 06/04/16 at 11:29; Status DC Active Scripts Active Lisinopril 20 Mg Tablet 20 Mg PO QHS Isosorbide Mononitrate Er (Isosorbide Mononitrate) 30 Mg Tab.er.24h 30 Mg PO DAILY Hydralazine Hcl 50 Mg Tablet 100 Mg PO TID Carvedilol 12.5 Mg Tablet 25 Mg PO BIDWMEALS Atorvastatin Calcium 40 Mg Tablet 80 Mg PO QHS Aspirin Ec (Aspirin) 81 Mg Tablet.dr 81 Mg PO DAILYWBKFT Amlodipine Besylate 5 Mg Tablet 5 Mg PO DAILYWLUN Reported Clopidogrel (Clopidogrel Bisulfate) 75 Mg Tablet 75 Mg PO DAILY Glyburide 5 Mg Tablet 1 Tab PO BIDWMEALS Lisinopril 20 Mg Tablet 1 Tab PO DAILY Vitals/I & O Vital Sign - Last 24 Hours 06/04/16 06/04/16 06/04/16 06/04/16 17:00 17:03 19:00 20:00 Temp 98.6 99.2 98.6 99.2 Pulse 71 71 66 Resp 18 21 B/P 126/58 126/58 Pulse Ox 98 O2 Delivery Room Air Room Air Room Air 06/04/16 06/04/16 06/05/16 06/05/16 21:10 23:00 00:15 00:15 Temp 98.4 98.4 Pulse 69 73 72 Resp 19 18 B/P 141/69 129/62 129/63 Pulse Ox 96 99 O2 Delivery Room Air Room Air Room Air 06/05/16 06/05/16 06/05/16 06/05/16 03:22 07:00 08:00 09:25 Temp 98.2 98.0 98.2 98.0 Pulse 73 69 73 Resp 18 15 B/P 142/65 142/66 142/65 Pulse Ox 97 O2 Delivery Room Air Room Air Room Air 06/05/16 06/05/16 06/05/16 06/05/16 09:26 09:26 09:27 11:00 Temp 98.6 98.6 Pulse 73 73 73 69 Resp 19 B/P 142/65 142/65 142/65 115/53 O2 Delivery Room Air Intake and Output 06/04/16 06/04/16 06/05/16 15:00 23:00 07:00 Intake Total 200 ml 240 ml 100 ml Balance 200 ml 240 ml 100 ml CHRISSIE OBANDO MD Jun 05, 2016 14:34
[2016-06-05] MEDS: ATORVASTATIN CALCIUM 40 MG TABLET. PO SCH (21:14)
[2016-06-06 03:15] VITALS: BP 155/71
[2016-06-06 05:33] LABS: BASO # 0.1 x10^3/uL (0.0-0.2); BASO % 1 % (0-3); EOS % 4 % (0-3); LYMPH # 1.7 x10^3/uL (1.0-4.8); LYMPH % 25 % (24-48); MEAN CORPUSCULAR HEMOGLOBIN 31 pg (25-35); MEAN CORPUSCULAR HGB CONC 33 g/dL (31-37); MEAN CORPUSCULAR VOLUME 94 fL (79-100); MONO % 10 % (0-9); NEUT % 61 % (31-73); PLATELET COUNT 174 x10^3/uL (140-400); RED CELL DISTRIBUTION WIDTH 14.6 % (11.5-14.5)
[2016-06-06 05:40] LABS: HEMOGLOBIN 6.7 g/dL (12.0-15.5)
[2016-06-06 05:41] LABS: HEMATOCRIT 20.6 % (36.0-47.0)
[2016-06-06 06:04] LABS: CALCIUM 7.5 mg/dL (8.5-10.1); CREATININE 3.7 mg/dL (0.6-1.0); GFR 12.5; POTASSIUM 4.6 mmol/L (3.5-5.1)
[2016-06-06 06:41] LABS: ALBUMIN 2.2 g/dL (3.4-5.0); CREATININE 3.9 mg/dL (0.6-1.0); GFR 11.8; PHOSPHORUS 4.3 mg/dL (2.6-4.7); POTASSIUM 4.4 mmol/L (3.5-5.1)
[2016-06-06 07:40] VITALS: BP 141/60
[2016-06-06] MEDS: INSULIN ASPART 300 UNITS/3 ML INSULN.PEN SQ SCH ×3 (08:00→18:34)
[2016-06-06] MEDS: HYDRALAZINE 50 MG TABLET PO SCH ×2 (09:21→20:55)
[2016-06-06] MEDS: ISOSORBIDE MONONITRATE ER 30 MG TAB.ER.24H PO SCH (09:21)
[2016-06-06] MEDS: CARVEDILOL 12.5 MG TABLET PO SCH ×2 (09:22→18:27)
[2016-06-06] MEDS: ASPIRIN ENTERIC COATED 81 MG TABLET.DR. PO SCH (09:22)
[2016-06-06] MEDS: LISINOPRIL 20 MG TABLET PO SCH (09:22)
[2016-06-06 09:42] LABS: BILIRUBIN,URINE NEGATIVE (NEG); GLUCOSE,URINE NEGATIVE (NEG); NITRITE,URINE POSITIVE (NEG); PROTEIN,URINE >=300 mg/dL (NEG-TRACE); UROBILINOGEN,URINE 0.2 mg/dL (0.2 mg/dL)
[2016-06-06 09:51] LABS: RBC,URINE FOBS /HPF (0-2)
[2016-06-06 09:52] LABS: BACTERIA,URINE MANY /HPF (0-FEW); WBC,URINE TNTC /HPF (0-4)
[2016-06-06 10:45] VITALS: BP 155/63
[2016-06-06 14:30] VITALS: BP 134/54
--- NOTE | 2016-06-06 15:01 | PDOC ---
PROGRESS NOTES Chief Complaint Chief Complaint cc: sob A//P 1. Acute on chronic systolic congestive heart failure. improved 2. Adj-RT-natahnn elevation myocardial infarction. 3. ZORAN 4. Ischemic cardiomyopathy. 5. Malignant hypertension, Better 6. Anemia 7. Hyperlipidemia. 8. Psoriasis. 9. CAD 10. Anemia 11. UTI not POA Plan IV Rocephin HD per nephrology SW to arrange out pt HD BP controlled, low hemoglobin but pt declined to have blood products due to jain reasons. risks and benefits explained. SSI Lipitor labs reviewed Monitor hemoglobin Prognosis guarded. History of Present Illness History of Present Illness sob better no fever no chills. no chest pain Vitals Vitals Vital Signs Date Time Temp Pulse Resp B/P Pulse Ox O2 Delivery O2 Flow Rate FiO2 06/06/16 14:30 97.9 75 20 134/54 100 Room Air 97.9 Physical Exam General: Alert, Oriented X3 Heart: Regular rate, Normal S1, Normal S2, No murmurs, Gallops Lungs: Clear, Other Abdomen: Normal bowel sounds, Soft, No tenderness, No hepatosplenomegaly, No masses Extremities: No clubbing, No cyanosis, No edema, Normal pulses, No tenderness/ swelling Skin: No breakdown, No significant lesion, Other (psoriasis ) Labs LABS Laboratory Tests Test 06/05/16 16:34 06/05/16 20:40 06/06/16 00:45 06/06/16 05:00 Glucose (Fingerstick) 204mg/dL (70-99) 243mg/dL (70-99) Urine Collection Type Unknown Urine Color Yellow Urine Clarity Turbid Urine pH 6.0 Urine Specific [place] 1.015 Urine Protein >=300mg/dL (NEG-TRACE) Urine Glucose (UA) Negativemg/dL (NEG) Urine Ketones (Stick) Negativemg/dL (NEG) Urine Blood Moderate (NEG) Urine Nitrite Positive (NEG) Urine Bilirubin Negative (NEG) Urine Urobilinogen Dipstick 0.2mg/dL (0.2 mg/dL) Urine Leukocyte Esterase Large (NEG) Urine RBC Fobs/HPF (0-2) Urine WBC Tntc/HPF (0-4) Urine Bacteria Many/HPF (0-FEW) White Blood Count 7.0x10^3/uL (4.0-11.0) Red Blood Count 2.20x10^6/uL (3.50-5.40) Hemoglobin 6.7g/dL (12.0-15.5) Hematocrit 20.6% (36.0-47.0) Mean Corpuscular Volume 94fL (79-100) Mean Corpuscular Hemoglobin 31pg (25-35) Mean Corpuscular Hemoglobin Concent 33g/dL (31-37) Red Cell Distribution Width 14.6% (11.5-14.5) Platelet Count 174x10^3/uL (140-400) Neutrophils (%) (Auto) 61% (31-73) Lymphocytes (%) (Auto) 25% (24-48) Monocytes (%) (Auto) 10% (0-9) Eosinophils (%) (Auto) 4% (0-3) Basophils (%) (Auto) 1% (0-3) Neutrophils # (Auto) 4.2x10^3uL (1.8-7.7) Lymphocytes # (Auto) 1.7x10^3/uL (1.0-4.8) Monocytes # (Auto) 0.7x10^3/uL (0.0-1.1) Eosinophils # (Auto) 0.3x10^3/uL (0.0-0.7) Basophils # (Auto) 0.1x10^3/uL (0.0-0.2) Sodium Level 138mmol/L (136-145) Potassium Level 4.4mmol/L (3.5-5.1) Chloride Level 104mmol/L (98-107) Carbon Dioxide Level 26mmol/L (21-32) Anion Gap 8 (6-14) Blood Urea Nitrogen 29mg/dL (7-20) Creatinine 3.9mg/dL (0.6-1.0) Estimated GFR (Cockcroft-Gault) 11.8 Glucose Level 151mg/dL (70-99) Calcium Level 8.0mg/dL (8.5-10.1) Phosphorus Level 4.3mg/dL (2.6-4.7) Magnesium Level 2.1mg/dL (1.8-2.4) Albumin 2.2g/dL (3.4-5.0) Test 06/06/16 07:57 06/06/16 11:53 Glucose (Fingerstick) 141mg/dL (70-99) 246mg/dL (70-99) Assessment and Plan Assessmemt and Plan Problems Medical Problems: (1) Congestive heart failure Status: Acute (2) NSTEMI (non-ST elevated myocardial infarction) Status: Acute Problems: Comment Review of Relevant I have reviewed the following items fede (where applicable) has been applied. Labs Laboratory Tests Test 06/04/16 16:57 06/04/16 21:14 06/05/16 04:25 06/05/16 07:46 Glucose (Fingerstick) 186mg/dL (70-99) 178mg/dL (70-99) 131mg/dL (70-99) White Blood Count 6.4x10^3/uL (4.0-11.0) Red Blood Count 2.22x10^6/uL (3.50-5.40) Hemoglobin 6.9g/dL (12.0-15.5) Hematocrit 20.4% (36.0-47.0) Mean Corpuscular Volume 92fL (79-100) Mean Corpuscular Hemoglobin 31pg (25-35) Mean Corpuscular Hemoglobin Concent 34g/dL (31-37) Red Cell Distribution Width 14.8% (11.5-14.5) Platelet Count 154x10^3/uL (140-400) Neutrophils (%) (Auto) 64% (31-73) Lymphocytes (%) (Auto) 20% (24-48) Monocytes (%) (Auto) 11% (0-9) Eosinophils (%) (Auto) 4% (0-3) Basophils (%) (Auto) 1% (0-3) Neutrophils # (Auto) 4.1x10^3uL (1.8-7.7) Lymphocytes # (Auto) 1.3x10^3/uL (1.0-4.8) Monocytes # (Auto) 0.7x10^3/uL (0.0-1.1) Eosinophils # (Auto) 0.3x10^3/uL (0.0-0.7) Basophils # (Auto) 0.0x10^3/uL (0.0-0.2) Sodium Level 138mmol/L (136-145) Potassium Level 4.2mmol/L (3.5-5.1) Chloride Level 104mmol/L (98-107) Carbon Dioxide Level 28mmol/L (21-32) Anion Gap 6 (6-14) Blood Urea Nitrogen 16mg/dL (7-20) Creatinine 2.7mg/dL (0.6-1.0) Estimated GFR (Cockcroft-Gault) 18.0 Glucose Level 160mg/dL (70-99) Calcium Level 7.8mg/dL (8.5-10.1) Phosphorus Level 3.6mg/dL (2.6-4.7) Magnesium Level 1.9mg/dL (1.8-2.4) Albumin 2.1g/dL (3.4-5.0) Test 06/05/16 11:05 06/05/16 16:34 06/05/16 20:40 06/06/16 00:45 Glucose (Fingerstick) 261mg/dL (70-99) 204mg/dL (70-99) 243mg/dL (70-99) Urine Collection Type Unknown Urine Color Yellow Urine Clarity Turbid Urine pH 6.0 Urine Specific [place] 1.015 Urine Protein >=300mg/dL (NEG-TRACE) Urine Glucose (UA) Negativemg/dL (NEG) Urine Ketones (Stick) Negativemg/dL (NEG) Urine Blood Moderate (NEG) Urine Nitrite Positive (NEG) Urine Bilirubin Negative (NEG) Urine Urobilinogen Dipstick 0.2mg/dL (0.2 mg/dL) Urine Leukocyte Esterase Large (NEG) Urine RBC Fobs/HPF (0-2) Urine WBC Tntc/HPF (0-4) Urine Bacteria Many/HPF (0-FEW) Test 06/06/16 05:00 06/06/16 07:57 06/06/16 11:53 White Blood Count 7.0x10^3/uL (4.0-11.0) Red Blood Count 2.20x10^6/uL (3.50-5.40) Hemoglobin 6.7g/dL (12.0-15.5) Hematocrit 20.6% (36.0-47.0) Mean Corpuscular Volume 94fL (79-100) Mean Corpuscular Hemoglobin 31pg (25-35) Mean Corpuscular Hemoglobin Concent 33g/dL (31-37) Red Cell Distribution Width 14.6% (11.5-14.5) Platelet Count 174x10^3/uL (140-400) Neutrophils (%) (Auto) 61% (31-73) Lymphocytes (%) (Auto) 25% (24-48) Monocytes (%) (Auto) 10% (0-9) Eosinophils (%) (Auto) 4% (0-3) Basophils (%) (Auto) 1% (0-3) Neutrophils # (Auto) 4.2x10^3uL (1.8-7.7) Lymphocytes # (Auto) 1.7x10^3/uL (1.0-4.8) Monocytes # (Auto) 0.7x10^3/uL (0.0-1.1) Eosinophils # (Auto) 0.3x10^3/uL (0.0-0.7) Basophils # (Auto) 0.1x10^3/uL (0.0-0.2) Sodium Level 138mmol/L (136-145) Potassium Level 4.4mmol/L (3.5-5.1) Chloride Level 104mmol/L (98-107) Carbon Dioxide Level 26mmol/L (21-32) Anion Gap 8 (6-14) Blood Urea Nitrogen 29mg/dL (7-20) Creatinine 3.9mg/dL (0.6-1.0) Estimated GFR (Cockcroft-Gault) 11.8 Glucose Level 151mg/dL (70-99) Calcium Level 8.0mg/dL (8.5-10.1) Phosphorus Level 4.3mg/dL (2.6-4.7) Magnesium Level 2.1mg/dL (1.8-2.4) Albumin 2.2g/dL (3.4-5.0) Glucose (Fingerstick) 141mg/dL (70-99) 246mg/dL (70-99) Laboratory Tests Test 06/05/16 16:34 06/05/16 20:40 06/06/16 00:45 06/06/16 05:00 Glucose (Fingerstick) 204mg/dL (70-99) 243mg/dL (70-99) Urine Collection Type Unknown Urine Color Yellow Urine Clarity Turbid Urine pH 6.0 Urine Specific [place] 1.015 Urine Protein >=300mg/dL (NEG-TRACE) Urine Glucose (UA) Negativemg/dL (NEG) Urine Ketones (Stick) Negativemg/dL (NEG) Urine Blood Moderate (NEG) Urine Nitrite Positive (NEG) Urine Bilirubin Negative (NEG) Urine Urobilinogen Dipstick 0.2mg/dL (0.2 mg/dL) Urine Leukocyte Esterase Large (NEG) Urine RBC Fobs/HPF (0-2) Urine WBC Tntc/HPF (0-4) Urine Bacteria Many/HPF (0-FEW) White Blood Count 7.0x10^3/uL (4.0-11.0) Red Blood Count 2.20x10^6/uL (3.50-5.40) Hemoglobin 6.7g/dL (12.0-15.5) Hematocrit 20.6% (36.0-47.0) Mean Corpuscular Volume 94fL (79-100) Mean Corpuscular Hemoglobin 31pg (25-35) Mean Corpuscular Hemoglobin Concent 33g/dL (31-37) Red Cell Distribution Width 14.6% (11.5-14.5) Platelet Count 174x10^3/uL (140-400) Neutrophils (%) (Auto) 61% (31-73) Lymphocytes (%) (Auto) 25% (24-48) Monocytes (%) (Auto) 10% (0-9) Eosinophils (%) (Auto) 4% (0-3) Basophils (%) (Auto) 1% (0-3) Neutrophils # (Auto) 4.2x10^3uL (1.8-7.7) Lymphocytes # (Auto) 1.7x10^3/uL (1.0-4.8) Monocytes # (Auto) 0.7x10^3/uL (0.0-1.1) Eosinophils # (Auto) 0.3x10^3/uL (0.0-0.7) Basophils # (Auto) 0.1x10^3/uL (0.0-0.2) Sodium Level 138mmol/L (136-145) Potassium Level 4.4mmol/L (3.5-5.1) Chloride Level 104mmol/L (98-107) Carbon Dioxide Level 26mmol/L (21-32) Anion Gap 8 (6-14) Blood Urea Nitrogen 29mg/dL (7-20) Creatinine 3.9mg/dL (0.6-1.0) Estimated GFR (Cockcroft-Gault) 11.8 Glucose Level 151mg/dL (70-99) Calcium Level 8.0mg/dL (8.5-10.1) Phosphorus Level 4.3mg/dL (2.6-4.7) Magnesium Level 2.1mg/dL (1.8-2.4) Albumin 2.2g/dL (3.4-5.0) Test 06/06/16 07:57 06/06/16 11:53 Glucose (Fingerstick) 141mg/dL (70-99) 246mg/dL (70-99) Microbiology 06/04/16 Blood Culture - Preliminary, Resulted NO GROWTH AFTER 2 DAYS Medications Current Medications Aspirin 324 mg 324 mg 1X ONCE PO Last administered on 06/01/16 12:59; Start at 12:45; Stop 06/01/16 at 12:48; Status DC Heparin Sodium/ Dextrose 500 ml @ 19 mls/hr CONT PRN IV SEE I/O RECORD Last administered on 06/02/16 14:45; Start 06/01/16 at 12:45; Stop 06/03/16 at 15:30; Status DC Heparin Sodium (Porcine) 1,950 unit PRN Q6HRS PRN IV FOR UFH LEVEL LESS THAN 0.2 Last administered on 06/01/16 13:01; Start 06/01/16 at 12:45; Stop 06/03/16 at 15:30; Status DC Ondansetron HCl (Zofran) 4 mg PRN Q8HRS PRN IV NAUSEA/VOMITING; Start 06/01/16 at 12:45; Stop 06/02/16 at 12:44; Status DC Morphine Sulfate 4 mg PRN Q2HR PRN IV PAIN Last administered on 06/01/16 14:03 ; Start 06/01/16 at 12:45; Stop 06/02/16 at 12:44; Status DC Nitroglycerin (Nitrostat) 0.4 mg PRN Q5MIN PRN SL CHEST PAIN Last administered on 06/01/16 14:03; Start 06/01/16 at 12:45; Stop 06/02/16 at 12:44; Status DC Amlodipine Besylate (Norvasc) 5 mg DAILYWLUN PO Last administered on 06/02/16 08:32; Start 06/01/16 at 14:00; Stop 06/02/16 at 16:02; Status DC Aspirin (Ecotrin) 81 mg DAILYWBKFT PO Last administered on 06/06/16 09:22; Start 06/01/16 at 14:00 Atorvastatin Calcium (Lipitor) 80 mg QHS PO Last administered on 06/05/16 21: 14; Start 06/01/16 at 21:00 Carvedilol (Coreg) 25 mg BIDWMEALS PO Last administered on 06/06/16 09:22; Start 06/01/16 at 17:00 Clopidogrel Bisulfate (Plavix) 75 mg DAILY PO Last administered on 06/01/16 14: 28; Start 06/01/16 at 14:00; Stop 06/02/16 at 08:41; Status DC Isosorbide Mononitrate (Imdur) 30 mg DAILY PO Last administered on 06/06/16 09 :21; Start 06/01/16 at 14:00 Furosemide (Lasix) 40 mg 1X ONCE IVP Last administered on 06/01/16 14:30; Start 06/01/16 at 14:00; Stop 06/01/16 at 14:23; Status DC Furosemide 40 mg 40 mg 1X ONCE IVP Last administered on 06/01/16 14:30; Start 06/01/16 at 14:30; Stop 06/01/16 at 14:38; Status DC Nitroglycerin/ Dextrose (Nitroglycerin Drip) 250 ml @ 0 mls/hr CONT PRN IV SEE I/O RECORD Last administered on 06/01/16 15:23; Start 06/01/16 at 14:30; Stop 06/02/16 at 16:02; Status DC Acetaminophen (Tylenol) 325 mg PRN Q6HRS PRN PO MILD PAIN / TEMP; Start at 15:00 Acetaminophen/ Hydrocodone Bitart (Lortab 5/325) 1 tab PRN Q6HRS PRN PO MODERATE TO SEVERE PAIN; Start 06/01/16 at 15:00 Hydralazine HCl (Apresoline) 10 mg PRN Q4HRS PRN IVP ELEVATED BP, SEE COMMENTS ; Start 06/01/16 at 15:00 Ondansetron HCl (Zofran) 4 mg PRN Q8HRS PRN IV NAUSEA/VOMITING; Start 06/01/16 at 15:00 Albuterol Sulfate (Ventolin Neb Soln) 2.5 mg PRN Q4HRS PRN NEB SHORTNESS OF BREATH; Start 06/01/16 at 15:00 Insulin Aspart (Novolog) 0-7 UNITS TIDWMEALS SQ Last administered on 06/06/16 12:37; Start 06/01/16 at 17:00 Dextrose 12.5 gm PRN Q15MIN PRN IV SEE COMMENTS; Start 06/01/16 at 15:00 Info 1 each 1 each PRN DAILY PRN MC SEE COMMENTS Last administered on 06/03/16 09:38; Start 06/01/16 at 17:00; Stop 06/04/16 at 08:25; Status DC Magnesium Sulfate/ Dextrose (Magnesium Sulfate PREMIX 2GM) 50 ml @ 25 mls/hr PRN DAILY PRN IV for Mag < 1.7 on am labs; Start 06/02/16 at 11:15 Lidocaine/Sodium Bicarbonate (Buffered Lidocaine 1%) 3 ml 1X ONCE IJ Last administered on 06/02/16 14:03; Start 06/02/16 at 12:30; Stop 06/02/16 at 12:34; Status DC Heparin Sodium (Porcine) 2,400 unit 1X ONCE INT CAT Last administered on 14:04; Start 06/02/16 at 12:30; Stop 06/02/16 at 12:34; Status DC Heparin Sodium/ Sodium Chloride 60 unit 1X ONCE IV Last administered on 14:04; Start 06/02/16 at 12:30; Stop 06/02/16 at 12:34; Status DC Lisinopril (Prinivil) 20 mg DAILY PO Last administered on 06/06/16 09:22; Start 06/02/16 at 16:00 Hydralazine HCl 50 mg 50 mg BID PO Last administered on 06/06/16 09:21; Start 06/02/16 at 21:00 Sodium Chloride (Iv Sodium Chloride 0.9% 1000ml Bag) 1,000 ml @ 1,000 mls/hr Q1H PRN IV hypotension; Start 06/02/16 at 18:28; Stop 06/03/16 at 00:27; Status DC Diphenhydramine HCl (Benadryl) 25 mg 1X PRN PRN IV ITCHING; Start 06/02/16 at 18 :30; Stop 06/03/16 at 18:29; Status DC Diphenhydramine HCl (Benadryl) 25 mg 1X PRN PRN IV ITCHING; Start 06/02/16 at 18 :30; Stop 06/03/16 at 18:29; Status DC Sodium Chloride (Normal Saline Flush) 10 ml 1X PRN PRN IV AP catheter pack; Start 06/02/16 at 18:30; Stop 06/03/16 at 18:29; Status DC Sodium Chloride 10 ml 10 ml 1X PRN PRN IV ENTRY LEVEL [employer]CIAL ANALYST catheter pack; Start 06/02/16 at 18 :30; Stop 06/03/16 at 18:29; Status DC Sodium Chloride (Iv Sodium Chloride 0.9% 1000ml Bag) 1,000 ml @ 400 mls/hr Q2H30M PRN IV PATENCY; Start 06/02/16 at 18:28; Stop 06/03/16 at 06:27; Status DC Info (PHARMACY MONITORING -- do not chart) 1 each PRN DAILY PRN MC SEE COMMENTS ; Start 06/02/16 at 18:30 Info (PHARMACY MONITORING -- do not chart) 1 each PRN DAILY PRN MC SEE COMMENTS ; Start 06/03/16 at 10:30; Status UNV Info (PHARMACY MONITORING -- do not chart) 1 each PRN DAILY PRN MC SEE COMMENTS ; Start 06/03/16 at 10:30; Status Cancel Darbepoetin [place]ick (Aranesp) 60 mcg WEEKLYHS SQ Last administered on 06/03/16t 20: 48; Start 06/03/16 at 21:00 Clopidogrel Bisulfate (Plavix) 75 mg DAILYWBKFT PO ; Start 06/04/16 at 08:00; Stop 06/04/16 at 08:00; Status DC Clopidogrel Bisulfate 75 mg 75 mg DAILYWBKFT PO Last administered on 06/04/16 08:25; Start 06/03/16 at 15:30; Stop 06/05/16 at 18:54; Status DC Sodium Chloride (Iv Sodium Chloride 0.9% 1000ml Bag) 1,000 ml @ 1,000 mls/hr Q1H PRN IV hypotension; Start 06/04/16 at 08:11; Stop 06/04/16 at 15:00; Status DC Diphenhydramine HCl (Benadryl) 25 mg 1X PRN PRN IV ITCHING; Start 06/04/16 at 08:15; Stop 06/04/16 at 15:00; Status DC Diphenhydramine HCl (Benadryl) 25 mg 1X PRN PRN IV ITCHING; Start 06/04/16 at 08:15; Stop 06/04/16 at 15:00; Status DC Sodium Chloride (Normal Saline Flush) 10 ml 1X PRN PRN IV AP catheter pack; Start 06/04/16 at 08:15; Stop 06/04/16 at 15:00; Status DC Sodium Chloride 10 ml 10 ml 1X PRN PRN IV ENTRY LEVEL FIN[employer]CIAL ANALYST catheter pack; Start 06/04/16 at 08:15; Stop 06/04/16 at 15:00; Status DC Sodium Chloride (Iv Sodium Chloride 0.9% 1000ml Bag) 1,000 ml @ 400 mls/hr Q2H30M PRN IV PATENCY; Start 06/04/16 at 08:11; Stop 06/04/16 at 21:00; Status DC Info 1 each 1 each PRN DAILY PRN MC SEE COMMENTS; Start 06/04/16 at 08:15; Status UNV Magnesium Sulfate/ Dextrose (Magnesium Sulfate PREMIX 1GM) 100 ml @ 100 mls/hr 1X ONCE IV Last administered on 06/04/16t 12:36; Start 06/04/16 at 10:30; Stop 06/04/16 at 11:29; Status DC Active Scripts Active Lisinopril 20 Mg Tablet 20 Mg PO QHS Isosorbide Mononitrate Er (Isosorbide Mononitrate) 30 Mg Tab.er.24h 30 Mg PO DAILY Hydralazine Hcl 50 Mg Tablet 100 Mg PO TID Carvedilol 12.5 Mg Tablet 25 Mg PO BIDWMEALS Atorvastatin Calcium 40 Mg Tablet 80 Mg PO QHS Aspirin Ec (Aspirin) 81 Mg Tablet.dr 81 Mg PO DAILYWBKFT Amlodipine Besylate 5 Mg Tablet 5 Mg PO DAILYWLUN Reported Clopidogrel (Clopidogrel Bisulfate) 75 Mg Tablet 75 Mg PO DAILY Glyburide 5 Mg Tablet 1 Tab PO BIDWMEALS Lisinopril 20 Mg Tablet 1 Tab PO DAILY Vitals/I & O Vital Sign - Last 24 Hours 06/05/16 06/05/16 06/05/16 06/05/16 15:00 18:37 19:20 20:00 Temp 98.7 98.8 98.7 98.8 Pulse 73 73 79 Resp 18 21 B/P 151/68 151/68 163/72 Pulse Ox 99 99 O2 Delivery Room Air Room Air Room Air 06/05/16 06/05/16 06/06/16 06/06/16 21:14 23:24 03:15 07:40 Temp 98.5 98.6 98.7 98.5 98.6 98.7 Pulse 72 73 74 70 Resp 20 22 18 B/P 163/72 146/67 155/71 141/60 Pulse Ox 98 97 97 O2 Delivery Room Air Room Air Room Air 06/06/16 06/06/16 06/06/16 06/06/16 08:00 09:21 09:21 09:22 Pulse 70 70 70 B/P 141/60 141/60 141/60 O2 Delivery Room Air 06/06/16 06/06/16 06/06/16 09:22 10:45 14:30 Temp 98.3 97.9 98.3 97.9 Pulse 70 79 75 Resp 20 20 B/P 141/60 155/63 134/54 Pulse Ox 97 100 O2 Delivery Room Air Room Air Intake and Output 06/05/16 06/05/16 06/06/16 15:00 23:00 07:00 Intake Total 400 ml 750 ml 200 ml Output Total 300 ml 150 ml Balance 400 ml 450 ml 50 ml SELMA LALA MD Jun 06, 2016 15:01
[2016-06-06] MEDS: CEFTRIAXONE SODIUM 1 GM in IV NORMAL SALINE 50ML 50 ML IV SCH (18:27)
[2016-06-06 19:10] VITALS: BP 148/59
[2016-06-06] MEDS: ATORVASTATIN CALCIUM 40 MG TABLET. PO SCH (20:55)
[2016-06-06 23:00] VITALS: BP 136/47
[2016-06-07 03:00] VITALS: BP 157/65
[2016-06-07 05:52] LABS: BASO # 0.1 x10^3/uL (0.0-0.2); BASO % 1 % (0-3); EOS % 4 % (0-3); LYMPH # 1.7 x10^3/uL (1.0-4.8); LYMPH % 25 % (24-48); MEAN CORPUSCULAR HEMOGLOBIN 32 pg (25-35); MEAN CORPUSCULAR HGB CONC 34 g/dL (31-37); MEAN CORPUSCULAR VOLUME 94 fL (79-100); MONO % 10 % (0-9); NEUT % 61 % (31-73); PLATELET COUNT 166 x10^3/uL (140-400); RED BLOOD COUNT 2.14 x10^6/uL (3.50-5.40); RED CELL DISTRIBUTION WIDTH 14.6 % (11.5-14.5); WHITE BLOOD COUNT 6.8 x10^3/uL (4.0-11.0)
[2016-06-07 06:11] LABS: CALCIUM 7.6 mg/dL (8.5-10.1); CREATININE 4.6 mg/dL (0.6-1.0); GFR 9.8; PHOSPHORUS 4.9 mg/dL (2.6-4.7); POTASSIUM 4.5 mmol/L (3.5-5.1)
[2016-06-07 06:47] LABS: HEMATOCRIT 20.2 % (36.0-47.0); HEMOGLOBIN 6.8 g/dL (12.0-15.5)
[2016-06-07 07:00] VITALS: BP 158/56
[2016-06-07] MEDS: INSULIN ASPART 300 UNITS/3 ML INSULN.PEN SQ SCH ×3 (08:00→17:45)
[2016-06-07] MEDS ORDERED: IV NORMAL SALINE 1000ML BAG 1,000 ML IV PRN ×2 (08:48)
[2016-06-07] MEDS ORDERED: DIALYSIS PATIENT. MC PRN (09:00)
--- NOTE | 2016-06-07 10:31 | PDOC ---
Dialysis Progress Note Dialysis Note Dialysis Note Seen on Hemodialysis, tolerating treatment Okay so far Vitals on Hemodialysis at time of my visit: 171/78 76 16 afeb General Appearance: Awake: Alert Oriented x 2-3 Neck: No JVD or JVP Chest: CTA Dionte Heart: S1 S2 Abdomen - Soft NTND Extremities - No Edema ESRD: Dialysis as below F 180 NR 3.0 Hrs 3 K 2.5 Ca 140 Na 40 HC03 Qb 350 + Qd 500+ Heparin on gtt Units Uf none Kgs or to dry weight as tolerated Pt refused Transfusion of PRCBC's previously May give 25-50 gms of 25% Albumin or NS if needed to maintain Hemodynamic stability Treatment plan reviewed and discussed with lap regulator Vitals Vital Signs Vital Signs Date Time Temp Pulse Resp B/P Pulse Ox O2 Delivery O2 Flow Rate FiO2 06/07/16 07:45 Room Air 06/07/16 07:00 98.5 71 18 158/56 98 98.5 06/04/16 14:25 2.0 Labs Last Labs Laboratory Tests Test 06/05/16 11:05 06/05/16 16:34 06/05/16 20:40 06/06/16 00:45 Glucose (Fingerstick) 261mg/dL (70-99) 204mg/dL (70-99) 243mg/dL (70-99) Urine Collection Type Unknown Urine Color Yellow Urine Clarity Turbid Urine pH 6.0 Urine Specific [place] 1.015 Urine Protein >=300mg/dL (NEG-TRACE) Urine Glucose (UA) Negativemg/dL (NEG) Urine Ketones (Stick) Negativemg/dL (NEG) Urine Blood Moderate (NEG) Urine Nitrite Positive (NEG) Urine Bilirubin Negative (NEG) Urine Urobilinogen Dipstick 0.2mg/dL (0.2 mg/dL) Urine Leukocyte Esterase Large (NEG) Urine RBC Fobs/HPF (0-2) Urine WBC Tntc/HPF (0-4) Urine Bacteria Many/HPF (0-FEW) Test 06/06/16 05:00 06/06/16 07:57 06/06/16 11:53 06/06/16 16:54 White Blood Count 7.0x10^3/uL (4.0-11.0) Red Blood Count 2.20x10^6/uL (3.50-5.40) Hemoglobin 6.7g/dL (12.0-15.5) Hematocrit 20.6% (36.0-47.0) Mean Corpuscular Volume 94fL (79-100) Mean Corpuscular Hemoglobin 31pg (25-35) Mean Corpuscular Hemoglobin Concent 33g/dL (31-37) Red Cell Distribution Width 14.6% (11.5-14.5) Platelet Count 174x10^3/uL (140-400) Neutrophils (%) (Auto) 61% (31-73) Lymphocytes (%) (Auto) 25% (24-48) Monocytes (%) (Auto) 10% (0-9) Eosinophils (%) (Auto) 4% (0-3) Basophils (%) (Auto) 1% (0-3) Neutrophils # (Auto) 4.2x10^3uL (1.8-7.7) Lymphocytes # (Auto) 1.7x10^3/uL (1.0-4.8) Monocytes # (Auto) 0.7x10^3/uL (0.0-1.1) Eosinophils # (Auto) 0.3x10^3/uL (0.0-0.7) Basophils # (Auto) 0.1x10^3/uL (0.0-0.2) Sodium Level 138mmol/L (136-145) Potassium Level 4.4mmol/L (3.5-5.1) Chloride Level 104mmol/L (98-107) Carbon Dioxide Level 26mmol/L (21-32) Anion Gap 8 (6-14) Blood Urea Nitrogen 29mg/dL (7-20) Creatinine 3.9mg/dL (0.6-1.0) Estimated GFR (Cockcroft-Gault) 11.8 Glucose Level 151mg/dL (70-99) Calcium Level 8.0mg/dL (8.5-10.1) Phosphorus Level 4.3mg/dL (2.6-4.7) Magnesium Level 2.1mg/dL (1.8-2.4) Albumin 2.2g/dL (3.4-5.0) Glucose (Fingerstick) 141mg/dL (70-99) 246mg/dL (70-99) 188mg/dL (70-99) Test 06/06/16 20:38 06/07/16 05:10 06/07/16 07:32 Glucose (Fingerstick) 158mg/dL (70-99) 151mg/dL (70-99) White Blood Count 6.8x10^3/uL (4.0-11.0) Red Blood Count 2.14x10^6/uL (3.50-5.40) Hemoglobin 6.8g/dL (12.0-15.5) Hematocrit 20.2% (36.0-47.0) Mean Corpuscular Volume 94fL (79-100) Mean Corpuscular Hemoglobin 32pg (25-35) Mean Corpuscular Hemoglobin Concent 34g/dL (31-37) Red Cell Distribution Width 14.6% (11.5-14.5) Platelet Count 166x10^3/uL (140-400) Neutrophils (%) (Auto) 61% (31-73) Lymphocytes (%) (Auto) 25% (24-48) Monocytes (%) (Auto) 10% (0-9) Eosinophils (%) (Auto) 4% (0-3) Basophils (%) (Auto) 1% (0-3) Neutrophils # (Auto) 4.1x10^3uL (1.8-7.7) Lymphocytes # (Auto) 1.7x10^3/uL (1.0-4.8) Monocytes # (Auto) 0.7x10^3/uL (0.0-1.1) Eosinophils # (Auto) 0.2x10^3/uL (0.0-0.7) Basophils # (Auto) 0.1x10^3/uL (0.0-0.2) Sodium Level 140mmol/L (136-145) Potassium Level 4.5mmol/L (3.5-5.1) Chloride Level 105mmol/L (98-107) Carbon Dioxide Level 24mmol/L (21-32) Anion Gap 11 (6-14) Blood Urea Nitrogen 41mg/dL (7-20) Creatinine 4.6mg/dL (0.6-1.0) Estimated GFR (Cockcroft-Gault) 9.8 Glucose Level 161mg/dL (70-99) Calcium Level 7.6mg/dL (8.5-10.1) Phosphorus Level 4.9mg/dL (2.6-4.7) Magnesium Level 2.1mg/dL (1.8-2.4) Albumin 2.0g/dL (3.4-5.0) Laboratory Tests Test 06/06/16 11:53 06/06/16 16:54 06/06/16 20:38 06/07/16 05:10 Glucose (Fingerstick) 246mg/dL (70-99) 188mg/dL (70-99) 158mg/dL (70-99) White Blood Count 6.8x10^3/uL (4.0-11.0) Red Blood Count 2.14x10^6/uL (3.50-5.40) Hemoglobin 6.8g/dL (12.0-15.5) Hematocrit 20.2% (36.0-47.0) Mean Corpuscular Volume 94fL (79-100) Mean Corpuscular Hemoglobin 32pg (25-35) Mean Corpuscular Hemoglobin Concent 34g/dL (31-37) Red Cell Distribution Width 14.6% (11.5-14.5) Platelet Count 166x10^3/uL (140-400) Neutrophils (%) (Auto) 61% (31-73) Lymphocytes (%) (Auto) 25% (24-48) Monocytes (%) (Auto) 10% (0-9) Eosinophils (%) (Auto) 4% (0-3) Basophils (%) (Auto) 1% (0-3) Neutrophils # (Auto) 4.1x10^3uL (1.8-7.7) Lymphocytes # (Auto) 1.7x10^3/uL (1.0-4.8) Monocytes # (Auto) 0.7x10^3/uL (0.0-1.1) Eosinophils # (Auto) 0.2x10^3/uL (0.0-0.7) Basophils # (Auto) 0.1x10^3/uL (0.0-0.2) Sodium Level 140mmol/L (136-145) Potassium Level 4.5mmol/L (3.5-5.1) Chloride Level 105mmol/L (98-107) Carbon Dioxide Level 24mmol/L (21-32) Anion Gap 11 (6-14) Blood Urea Nitrogen 41mg/dL (7-20) Creatinine 4.6mg/dL (0.6-1.0) Estimated GFR (Cockcroft-Gault) 9.8 Glucose Level 161mg/dL (70-99) Calcium Level 7.6mg/dL (8.5-10.1) Phosphorus Level 4.9mg/dL (2.6-4.7) Magnesium Level 2.1mg/dL (1.8-2.4) Albumin 2.0g/dL (3.4-5.0) Test 06/07/16 07:32 Glucose (Fingerstick) 151mg/dL (70-99) Assessment Assessment Problems Medical Problems: (1) Congestive heart failure Status: Acute (2) NSTEMI (non-ST elevated myocardial infarction) Status: Acute Problems: Plan Plan of Care Problems Medical Problems: (1) Congestive heart failure Status: Acute (2) NSTEMI (non-ST elevated myocardial infarction) Status: Acute PALMA HERNANDEZ MD Jun 07, 2016 10:31
[2016-06-07] MEDS: CARVEDILOL 12.5 MG TABLET PO SCH ×2 (13:07→17:39)
[2016-06-07] MEDS: ASPIRIN ENTERIC COATED 81 MG TABLET.DR. PO SCH (13:07)
[2016-06-07] MEDS: ISOSORBIDE MONONITRATE ER 30 MG TAB.ER.24H PO SCH (13:09)
[2016-06-07 14:20] VITALS: BP 130/60
--- NOTE | 2016-06-07 14:49 | PDOC ---
PROGRESS NOTES Chief Complaint Chief Complaint cc: sob A//P 1. Acute on chronic systolic congestive heart failure. improved 2. [id number] elevation myocardial infarction. 3. ZORAN with CKD 4. Ischemic cardiomyopathy. 5. Malignant hypertension, Better 6. Anemia 7. Hyperlipidemia. 8. Psoriasis. 9. CAD 10. Anemia 11. UTI not POA Plan IV Rocephin, fu ucx HD per nephrology SW to arrange out pt HD BP controlled, low hemoglobin but pt declined to have blood products due to islam reasons. risks and benefits explained. check vitb12, fa, add iron po SSI Lipitor labs reviewed Monitor hemoglobin Prognosis guarded. talked to daughter at bedside History of Present Illness History of Present Illness sob better no fever no chills. no chest pain still dysuria, frequent urination Vitals Vitals Vital Signs Date Time Temp Pulse Resp B/P Pulse Ox O2 Delivery O2 Flow Rate FiO2 06/07/16 14:20 98.5 79 20 130/60 100 Room Air 98.5 Physical Exam General: Alert, Oriented X3 Heart: Regular rate, Normal S1, Normal S2, No murmurs, Gallops Lungs: Clear, Other Abdomen: Normal bowel sounds, Soft, No tenderness, No hepatosplenomegaly, No masses Extremities: No clubbing, No cyanosis, No edema, Normal pulses, No tenderness/ swelling Skin: No breakdown, No significant lesion, Other (psoriasis ) Labs LABS Laboratory Tests Test 06/06/16 16:54 06/06/16 20:38 06/07/16 05:10 06/07/16 07:32 Glucose (Fingerstick) 188mg/dL (70-99) 158mg/dL (70-99) 151mg/dL (70-99) White Blood Count 6.8x10^3/uL (4.0-11.0) Red Blood Count 2.14x10^6/uL (3.50-5.40) Hemoglobin 6.8g/dL (12.0-15.5) Hematocrit 20.2% (36.0-47.0) Mean Corpuscular Volume 94fL (79-100) Mean Corpuscular Hemoglobin 32pg (25-35) Mean Corpuscular Hemoglobin Concent 34g/dL (31-37) Red Cell Distribution Width 14.6% (11.5-14.5) Platelet Count 166x10^3/uL (140-400) Neutrophils (%) (Auto) 61% (31-73) Lymphocytes (%) (Auto) 25% (24-48) Monocytes (%) (Auto) 10% (0-9) Eosinophils (%) (Auto) 4% (0-3) Basophils (%) (Auto) 1% (0-3) Neutrophils # (Auto) 4.1x10^3uL (1.8-7.7) Lymphocytes # (Auto) 1.7x10^3/uL (1.0-4.8) Monocytes # (Auto) 0.7x10^3/uL (0.0-1.1) Eosinophils # (Auto) 0.2x10^3/uL (0.0-0.7) Basophils # (Auto) 0.1x10^3/uL (0.0-0.2) Sodium Level 140mmol/L (136-145) Potassium Level 4.5mmol/L (3.5-5.1) Chloride Level 105mmol/L (98-107) Carbon Dioxide Level 24mmol/L (21-32) Anion Gap 11 (6-14) Blood Urea Nitrogen 41mg/dL (7-20) Creatinine 4.6mg/dL (0.6-1.0) Estimated GFR (Cockcroft-Gault) 9.8 Glucose Level 161mg/dL (70-99) Calcium Level 7.6mg/dL (8.5-10.1) Phosphorus Level 4.9mg/dL (2.6-4.7) Magnesium Level 2.1mg/dL (1.8-2.4) Albumin 2.0g/dL (3.4-5.0) Test 06/07/16 13:05 Glucose (Fingerstick) 120mg/dL (70-99) Review of Systems Review of Systems no fever, chills, sob or chest pain Assessment and Plan Assessmemt and Plan Problems Medical Problems: (1) Congestive heart failure Status: Acute (2) NSTEMI (non-ST elevated myocardial infarction) Status: Acute Problems: Comment Review of Relevant I have reviewed the following items fede (where applicable) has been applied. Labs Laboratory Tests Test 06/05/16 16:34 06/05/16 20:40 06/06/16 00:45 06/06/16 05:00 Glucose (Fingerstick) 204mg/dL (70-99) 243mg/dL (70-99) Urine Collection Type Unknown Urine Color Yellow Urine Clarity Turbid Urine pH 6.0 Urine Specific [place] 1.015 Urine Protein >=300mg/dL (NEG-TRACE) Urine Glucose (UA) Negativemg/dL (NEG) Urine Ketones (Stick) Negativemg/dL (NEG) Urine Blood Moderate (NEG) Urine Nitrite Positive (NEG) Urine Bilirubin Negative (NEG) Urine Urobilinogen Dipstick 0.2mg/dL (0.2 mg/dL) Urine Leukocyte Esterase Large (NEG) Urine RBC Fobs/HPF (0-2) Urine WBC Tntc/HPF (0-4) Urine Bacteria Many/HPF (0-FEW) White Blood Count 7.0x10^3/uL (4.0-11.0) Red Blood Count 2.20x10^6/uL (3.50-5.40) Hemoglobin 6.7g/dL (12.0-15.5) Hematocrit 20.6% (36.0-47.0) Mean Corpuscular Volume 94fL (79-100) Mean Corpuscular Hemoglobin 31pg (25-35) Mean Corpuscular Hemoglobin Concent 33g/dL (31-37) Red Cell Distribution Width 14.6% (11.5-14.5) Platelet Count 174x10^3/uL (140-400) Neutrophils (%) (Auto) 61% (31-73) Lymphocytes (%) (Auto) 25% (24-48) Monocytes (%) (Auto) 10% (0-9) Eosinophils (%) (Auto) 4% (0-3) Basophils (%) (Auto) 1% (0-3) Neutrophils # (Auto) 4.2x10^3uL (1.8-7.7) Lymphocytes # (Auto) 1.7x10^3/uL (1.0-4.8) Monocytes # (Auto) 0.7x10^3/uL (0.0-1.1) Eosinophils # (Auto) 0.3x10^3/uL (0.0-0.7) Basophils # (Auto) 0.1x10^3/uL (0.0-0.2) Sodium Level 138mmol/L (136-145) Potassium Level 4.4mmol/L (3.5-5.1) Chloride Level 104mmol/L (98-107) Carbon Dioxide Level 26mmol/L (21-32) Anion Gap 8 (6-14) Blood Urea Nitrogen 29mg/dL (7-20) Creatinine 3.9mg/dL (0.6-1.0) Estimated GFR (Cockcroft-Gault) 11.8 Glucose Level 151mg/dL (70-99) Calcium Level 8.0mg/dL (8.5-10.1) Phosphorus Level 4.3mg/dL (2.6-4.7) Magnesium Level 2.1mg/dL (1.8-2.4) Albumin 2.2g/dL (3.4-5.0) Test 06/06/16 07:57 06/06/16 11:53 06/06/16 16:54 06/06/16 20:38 Glucose (Fingerstick) 141mg/dL (70-99) 246mg/dL (70-99) 188mg/dL (70-99) 158mg/dL (70-99) Test 06/07/16 05:10 06/07/16 07:32 06/07/16 13:05 White Blood Count 6.8x10^3/uL (4.0-11.0) Red Blood Count 2.14x10^6/uL (3.50-5.40) Hemoglobin 6.8g/dL (12.0-15.5) Hematocrit 20.2% (36.0-47.0) Mean Corpuscular Volume 94fL (79-100) Mean Corpuscular Hemoglobin 32pg (25-35) Mean Corpuscular Hemoglobin Concent 34g/dL (31-37) Red Cell Distribution Width 14.6% (11.5-14.5) Platelet Count 166x10^3/uL (140-400) Neutrophils (%) (Auto) 61% (31-73) Lymphocytes (%) (Auto) 25% (24-48) Monocytes (%) (Auto) 10% (0-9) Eosinophils (%) (Auto) 4% (0-3) Basophils (%) (Auto) 1% (0-3) Neutrophils # (Auto) 4.1x10^3uL (1.8-7.7) Lymphocytes # (Auto) 1.7x10^3/uL (1.0-4.8) Monocytes # (Auto) 0.7x10^3/uL (0.0-1.1) Eosinophils # (Auto) 0.2x10^3/uL (0.0-0.7) Basophils # (Auto) 0.1x10^3/uL (0.0-0.2) Sodium Level 140mmol/L (136-145) Potassium Level 4.5mmol/L (3.5-5.1) Chloride Level 105mmol/L (98-107) Carbon Dioxide Level 24mmol/L (21-32) Anion Gap 11 (6-14) Blood Urea Nitrogen 41mg/dL (7-20) Creatinine 4.6mg/dL (0.6-1.0) Estimated GFR (Cockcroft-Gault) 9.8 Glucose Level 161mg/dL (70-99) Calcium Level 7.6mg/dL (8.5-10.1) Phosphorus Level 4.9mg/dL (2.6-4.7) Magnesium Level 2.1mg/dL (1.8-2.4) Albumin 2.0g/dL (3.4-5.0) Glucose (Fingerstick) 151mg/dL (70-99) 120mg/dL (70-99) Laboratory Tests Test 06/06/16 16:54 06/06/16 20:38 06/07/16 05:10 06/07/16 07:32 Glucose (Fingerstick) 188mg/dL (70-99) 158mg/dL (70-99) 151mg/dL (70-99) White Blood Count 6.8x10^3/uL (4.0-11.0) Red Blood Count 2.14x10^6/uL (3.50-5.40) Hemoglobin 6.8g/dL (12.0-15.5) Hematocrit 20.2% (36.0-47.0) Mean Corpuscular Volume 94fL (79-100) Mean Corpuscular Hemoglobin 32pg (25-35) Mean Corpuscular Hemoglobin Concent 34g/dL (31-37) Red Cell Distribution Width 14.6% (11.5-14.5) Platelet Count 166x10^3/uL (140-400) Neutrophils (%) (Auto) 61% (31-73) Lymphocytes (%) (Auto) 25% (24-48) Monocytes (%) (Auto) 10% (0-9) Eosinophils (%) (Auto) 4% (0-3) Basophils (%) (Auto) 1% (0-3) Neutrophils # (Auto) 4.1x10^3uL (1.8-7.7) Lymphocytes # (Auto) 1.7x10^3/uL (1.0-4.8) Monocytes # (Auto) 0.7x10^3/uL (0.0-1.1) Eosinophils # (Auto) 0.2x10^3/uL (0.0-0.7) Basophils # (Auto) 0.1x10^3/uL (0.0-0.2) Sodium Level 140mmol/L (136-145) Potassium Level 4.5mmol/L (3.5-5.1) Chloride Level 105mmol/L (98-107) Carbon Dioxide Level 24mmol/L (21-32) Anion Gap 11 (6-14) Blood Urea Nitrogen 41mg/dL (7-20) Creatinine 4.6mg/dL (0.6-1.0) Estimated GFR (Cockcroft-Gault) 9.8 Glucose Level 161mg/dL (70-99) Calcium Level 7.6mg/dL (8.5-10.1) Phosphorus Level 4.9mg/dL (2.6-4.7) Magnesium Level 2.1mg/dL (1.8-2.4) Albumin 2.0g/dL (3.4-5.0) Test 06/07/16 13:05 Glucose (Fingerstick) 120mg/dL (70-99) Microbiology 06/04/16 Blood Culture - Preliminary, Resulted NO GROWTH AFTER 3 DAYS Medications Current Medications Aspirin 324 mg 324 mg 1X ONCE PO Last administered on 06/01/16t 12:59; Start at 12:45; Stop 06/01/16 at 12:48; Status DC Heparin Sodium/ Dextrose 500 ml @ 19 mls/hr CONT PRN IV SEE I/O RECORD Last administered on 06/02/16 14:45; Start 06/01/16 at 12:45; Stop 06/03/16 at 15:30; Status DC Heparin Sodium (Porcine) 1,950 unit PRN Q6HRS PRN IV FOR UFH LEVEL LESS THAN 0.2 Last administered on 06/01/16 13:01; Start 06/01/16 at 12:45; Stop 06/03/16 at 15:30; Status DC Ondansetron HCl (Zofran) 4 mg PRN Q8HRS PRN IV NAUSEA/VOMITING; Start 06/01/16 at 12:45; Stop 06/02/16 at 12:44; Status DC Morphine Sulfate 4 mg PRN Q2HR PRN IV PAIN Last administered on 06/01/16 14:03 ; Start 06/01/16 at 12:45; Stop 06/02/16 at 12:44; Status DC Nitroglycerin (Nitrostat) 0.4 mg PRN Q5MIN PRN SL CHEST PAIN Last administered on 06/01/16 14:03; Start 06/01/16 at 12:45; Stop 06/02/16 at 12:44; Status DC Amlodipine Besylate (Norvasc) 5 mg DAILYWLUN PO Last administered on 06/02/16 08:32; Start 06/01/16 at 14:00; Stop 06/02/16 at 16:02; Status DC Aspirin (Ecotrin) 81 mg DAILYWBKFT PO Last administered on 06/07/16 13:07; Start 06/01/16 at 14:00 Atorvastatin Calcium (Lipitor) 80 mg QHS PO Last administered on 06/06/16 20: 55; Start 06/01/16 at 21:00 Carvedilol (Coreg) 25 mg BIDWMEALS PO Last administered on 06/07/16 13:07; Start 06/01/16 at 17:00 Clopidogrel Bisulfate (Plavix) 75 mg DAILY PO Last administered on 06/01/16 14: 28; Start 06/01/16 at 14:00; Stop 06/02/16 at 08:41; Status DC Isosorbide Mononitrate (Imdur) 30 mg DAILY PO Last administered on 06/07/16 13 :09; Start 06/01/16 at 14:00 Furosemide (Lasix) 40 mg 1X ONCE IVP Last administered on 06/01/16 14:30; Start 06/01/16 at 14:00; Stop 06/01/16 at 14:23; Status DC Furosemide 40 mg 40 mg 1X ONCE IVP Last administered on 06/01/16 14:30; Start 06/01/16 at 14:30; Stop 06/01/16 at 14:38; Status DC Nitroglycerin/ Dextrose (Nitroglycerin Drip) 250 ml @ 0 mls/hr CONT PRN IV SEE I/O RECORD Last administered on 06/01/16 15:23; Start 06/01/16 at 14:30; Stop 06/02/16 at 16:02; Status DC Acetaminophen (Tylenol) 325 mg PRN Q6HRS PRN PO MILD PAIN / TEMP; Start at 15:00 Acetaminophen/ Hydrocodone Bitart (Lortab 5/325) 1 tab PRN Q6HRS PRN PO MODERATE TO SEVERE PAIN; Start 06/01/16 at 15:00 Hydralazine HCl (Apresoline) 10 mg PRN Q4HRS PRN IVP ELEVATED BP, SEE COMMENTS ; Start 06/01/16 at 15:00 Ondansetron HCl (Zofran) 4 mg PRN Q8HRS PRN IV NAUSEA/VOMITING; Start 06/01/16 at 15:00 Albuterol Sulfate (Ventolin Neb Soln) 2.5 mg PRN Q4HRS PRN NEB SHORTNESS OF BREATH; Start 06/01/16 at 15:00 Insulin Aspart (Novolog) 0-7 UNITS TIDWMEALS SQ Last administered on 06/06/16 18:34; Start 06/01/16 at 17:00 Dextrose 12.5 gm PRN Q15MIN PRN IV SEE COMMENTS; Start 06/01/16 at 15:00 Info 1 each 1 each PRN DAILY PRN MC SEE COMMENTS Last administered on 06/03/16 09:38; Start 06/01/16 at 17:00; Stop 06/04/16 at 08:25; Status DC Magnesium Sulfate/ Dextrose (Magnesium Sulfate PREMIX 2GM) 50 ml @ 25 mls/hr PRN DAILY PRN IV for Mag < 1.7 on am labs; Start 06/02/16 at 11:15 Lidocaine/Sodium Bicarbonate (Buffered Lidocaine 1%) 3 ml 1X ONCE IJ Last administered on 06/02/16 14:03; Start 06/02/16 at 12:30; Stop 06/02/16 at 12:34; Status DC Heparin Sodium (Porcine) 2,400 unit 1X ONCE INT CAT Last administered on 14:04; Start 06/02/16 at 12:30; Stop 06/02/16 at 12:34; Status DC Heparin Sodium/ Sodium Chloride 60 unit 1X ONCE IV Last administered on 14:04; Start 06/02/16 at 12:30; Stop 06/02/16 at 12:34; Status DC Lisinopril (Prinivil) 20 mg DAILY PO Last administered on 06/06/16 09:22; Start 06/02/16 at 16:00; Stop 06/07/16 at 10:31; Status DC Hydralazine HCl 50 mg 50 mg BID PO Last administered on 06/06/16 20:55; Start 06/02/16 at 21:00; Stop 06/07/16 at 10:31; Status DC Sodium Chloride (Iv Sodium Chloride 0.9% 1000ml Bag) 1,000 ml @ 1,000 mls/hr Q1H PRN IV hypotension; Start 06/02/16 at 18:28; Stop 06/03/16 at 00:27; Status DC Diphenhydramine HCl (Benadryl) 25 mg 1X PRN PRN IV ITCHING; Start 06/02/16 at 18 :30; Stop 06/03/16 at 18:29; Status DC Diphenhydramine HCl (Benadryl) 25 mg 1X PRN PRN IV ITCHING; Start 06/02/16 at 18 :30; Stop 06/03/16 at 18:29; Status DC Sodium Chloride (Normal Saline Flush) 10 ml 1X PRN PRN IV AP catheter pack; Start 06/02/16 at 18:30; Stop 06/03/16 at 18:29; Status DC Sodium Chloride 10 ml 10 ml 1X PRN PRN IV PLASTIC MIXER catheter pack; Start 06/02/16 at 18 :30; Stop 06/03/16 at 18:29; Status DC Sodium Chloride (Iv Sodium Chloride 0.9% 1000ml Bag) 1,000 ml @ 400 mls/hr Q2H30M PRN IV PATENCY; Start 06/02/16 at 18:28; Stop 06/03/16 at 06:27; Status DC Info (PHARMACY MONITORING -- do not chart) 1 each PRN DAILY PRN MC SEE COMMENTS ; Start 06/02/16 at 18:30 Info (PHARMACY MONITORING -- do not chart) 1 each PRN DAILY PRN MC SEE COMMENTS ; Start 06/03/16 at 10:30; Status UNV Info (PHARMACY MONITORING -- do not chart) 1 each PRN DAILY PRN MC SEE COMMENTS ; Start 06/03/16 at 10:30; Status Cancel Darbepoetin [place] (Aranesp) 60 mcg WEEKLYHS SQ Last administered on 06/03/16t 20: 48; Start 06/03/16 at 21:00 Clopidogrel Bisulfate (Plavix) 75 mg DAILYWBKFT PO ; Start 06/04/16 at 08:00; Stop 06/04/16 at 08:00; Status DC Clopidogrel Bisulfate 75 mg 75 mg DAILYWBKFT PO Last administered on 06/04/16 08:25; Start 06/03/16 at 15:30; Stop 06/05/16 at 18:54; Status DC Sodium Chloride (Iv Sodium Chloride 0.9% 1000ml Bag) 1,000 ml @ 1,000 mls/hr Q1H PRN IV hypotension; Start 06/04/16 at 08:11; Stop 06/04/16 at 15:00; Status DC Diphenhydramine HCl (Benadryl) 25 mg 1X PRN PRN IV ITCHING; Start 06/04/16 at 08:15; Stop 06/04/16 at 15:00; Status DC Diphenhydramine HCl (Benadryl) 25 mg 1X PRN PRN IV ITCHING; Start 06/04/16 at 08:15; Stop 06/04/16 at 15:00; Status DC Sodium Chloride (Normal Saline Flush) 10 ml 1X PRN PRN IV AP catheter pack; Start 06/04/16 at 08:15; Stop 06/04/16 at 15:00; Status DC Sodium Chloride 10 ml 10 ml 1X PRN PRN IV PLASTIC MIXER catheter pack; Start 06/04/16 at 08:15; Stop 06/04/16 at 15:00; Status DC Sodium Chloride (Iv Sodium Chloride 0.9% 1000ml Bag) 1,000 ml @ 400 mls/hr Q2H30M PRN IV PATENCY; Start 06/04/16 at 08:11; Stop 06/04/16 at 21:00; Status DC Info 1 each 1 each PRN DAILY PRN MC SEE COMMENTS; Start 06/04/16 at 08:15; Status UNV Magnesium Sulfate/ Dextrose 100 ml @ 100 mls/hr 1X ONCE IV Last administered on 06/04/16 12:36; Start 06/04/16 at 10:30; Stop 06/04/16 at 11:29; Status DC Ceftriaxone Sodium 1 gm/ Sodium Chloride 50 ml @ 100 mls/hr Q24H IV Last administered on 06/06/16t 18:27; Start 06/06/16 at 16:00 Sodium Chloride 1,000 ml @ 1,000 mls/hr Q1H PRN IV hypotension; Start 06/07/16 at 08:48; Stop 06/07/16 at 14:47 Sodium Chloride (Iv Sodium Chloride 0.9% 1000ml Bag) 1,000 ml @ 400 mls/hr Q2H30M PRN IV PATENCY; Start 06/07/16 at 08:48; Stop 06/07/16 at 20:47 Info (PHARMACY MONITORING -- do not chart) 1 each PRN DAILY PRN MC SEE COMMENTS ; Start 06/07/16 at 09:00; Status UNV Lisinopril (Prinivil) 40 mg DAILY PO ; Start 06/08/16 at 09:00 Active Scripts Active Lisinopril 20 Mg Tablet 20 Mg PO QHS Isosorbide Mononitrate Er (Isosorbide Mononitrate) 30 Mg Tab.er.24h 30 Mg PO DAILY Hydralazine Hcl 50 Mg Tablet 100 Mg PO TID Carvedilol 12.5 Mg Tablet 25 Mg PO BIDWMEALS Atorvastatin Calcium 40 Mg Tablet 80 Mg PO QHS Aspirin Ec (Aspirin) 81 Mg Tablet.dr 81 Mg PO DAILYWBKFT Amlodipine Besylate 5 Mg Tablet 5 Mg PO DAILYWLUN Reported Clopidogrel (Clopidogrel Bisulfate) 75 Mg Tablet 75 Mg PO DAILY Glyburide 5 Mg Tablet 1 Tab PO BIDWMEALS Lisinopril 20 Mg Tablet 1 Tab PO DAILY Vitals/I & O Vital Sign - Last 24 Hours 06/06/16 06/06/16 06/06/16 06/06/16 18:27 19:10 19:59 20:55 Temp 98.6 98.6 Pulse 75 77 77 Resp 18 B/P 134/54 148/59 148/59 Pulse Ox 98 O2 Delivery Room Air Room Air 06/06/16 06/07/16 06/07/16 06/07/16 23:00 03:00 07:00 07:45 Temp 98.5 98.4 98.5 98.5 98.4 98.5 Pulse 78 72 71 Resp 20 22 18 B/P 136/47 157/65 158/56 Pulse Ox 94 98 98 O2 Delivery Room Air Room Air Room Air Room Air 06/07/16 06/07/16 06/07/16 13:07 13:09 14:20 Temp 98.5 98.5 Pulse 71 86 79 Resp 20 B/P 158/56 205/87 130/60 Pulse Ox 100 O2 Delivery Room Air Intake and Output 06/06/16 06/06/16 06/07/16 15:00 23:00 07:00 Intake Total 250 ml 570 ml 400 ml Output Total 600 ml 200 ml Balance 250 ml -30 ml 200 ml SALLY LLOYD MD Jun 07, 2016 14:49
[2016-06-07] MEDS: CYANOCOBALAMIN (VITAMIN B-12) 1,000 MCG TABLET. PO SCH (16:09)
[2016-06-07] MEDS: CEFTRIAXONE SODIUM 1 GM in IV NORMAL SALINE 50ML 50 ML IV SCH (16:13)
[2016-06-07 19:00] VITALS: BP 137/50
[2016-06-07] MEDS: ACETAMINOPHEN 325 MG TABLET. PO PRN (21:59)
[2016-06-07] MEDS: FERROUS SULFATE 325 MG TABLET PO SCH (22:05)
[2016-06-07] MEDS: ATORVASTATIN CALCIUM 40 MG TABLET. PO SCH (22:05)
[2016-06-07 23:00] VITALS: BP 133/58
[2016-06-08 03:05] VITALS: BP 154/63
[2016-06-08 06:33] LABS: ALBUMIN 2.1 g/dL (3.4-5.0); CALCIUM 7.5 mg/dL (8.5-10.1); CREATININE 3.3 mg/dL (0.6-1.0); GFR 14.3; PHOSPHORUS 4.1 mg/dL (2.6-4.7); POTASSIUM 4.1 mmol/L (3.5-5.1)
[2016-06-08 07:00] VITALS: BP 147/57
[2016-06-08] MEDS: ASPIRIN ENTERIC COATED 81 MG TABLET.DR. PO SCH (08:00)
[2016-06-08] MEDS: INSULIN ASPART 300 UNITS/3 ML INSULN.PEN SQ SCH ×3 (08:00→17:00)
[2016-06-08] MEDS: CARVEDILOL 12.5 MG TABLET PO SCH ×2 (08:00→17:00)
[2016-06-08] MEDS: CYANOCOBALAMIN (VITAMIN B-12) 1,000 MCG TABLET. PO SCH (09:00)
[2016-06-08] MEDS: FERROUS SULFATE 325 MG TABLET PO SCH ×2 (09:00→21:23)
[2016-06-08] MEDS: ISOSORBIDE MONONITRATE ER 30 MG TAB.ER.24H PO SCH (09:00)
[2016-06-08] MEDS: LISINOPRIL 40 MG TABLET. PO SCH (09:00)
[2016-06-08 11:10] VITALS: BP 155/57
--- NOTE | 2016-06-08 13:23 | PDOC ---
PROGRESS NOTES Chief Complaint Chief Complaint cc: sob A//P 1. Acute on chronic systolic congestive heart failure. improved 2. Zgk-SD-yzaefmx elevation myocardial infarction. 3. ZORAN with CKD 4. Ischemic cardiomyopathy. 5. Malignant hypertension, Better 6. Anemia 7. Hyperlipidemia. 8. Psoriasis. 9. CAD 10. Anemia 11. UTI not POA Plan IV Rocephin, fu ucx HD per nephrology SW to arrange out pt HD BP controlled, low hemoglobin but pt declined to have blood products due to taoist reasons. risks and benefits explained. check vitb12, fa, add iron po SSI Lipitor labs reviewed Monitor hemoglobin Prognosis guarded. talked to daughter at bedside talked to CARD, NO intervention now given low HB, PT WILL get HD perm cath today , dc in 1-2ds when outpt HD set up History of Present Illness History of Present Illness sob better no fever no chills. no chest pain still dysuria, frequent urination Vitals Vitals Vital Signs Date Time Temp Pulse Resp B/P Pulse Ox O2 Delivery O2 Flow Rate FiO2 06/08/16 11:10 98.4 67 18 155/57 98 Room Air 98.4 06/08/16 08:00 2.0 Physical Exam General: Alert, Oriented X3 Heart: Regular rate, Normal S1, Normal S2, No murmurs, Gallops Lungs: Clear, Other Abdomen: Normal bowel sounds, Soft, No tenderness, No hepatosplenomegaly, No masses Extremities: No clubbing, No cyanosis, No edema, Normal pulses, No tenderness/ swelling Skin: No breakdown, No significant lesion, Other (psoriasis ) Labs LABS Laboratory Tests Test 06/07/16 16:56 06/07/16 22:09 06/08/16 04:30 06/08/16 08:19 Glucose (Fingerstick) 201mg/dL (70-99) 246mg/dL (70-99) 176mg/dL (70-99) Sodium Level 139mmol/L (136-145) Potassium Level 4.1mmol/L (3.5-5.1) Chloride Level 101mmol/L (98-107) Carbon Dioxide Level 29mmol/L (21-32) Anion Gap 9 (6-14) Blood Urea Nitrogen 26mg/dL (7-20) Creatinine 3.3mg/dL (0.6-1.0) Estimated GFR (Cockcroft-Gault) 14.3 Glucose Level 184mg/dL (70-99) Calcium Level 7.5mg/dL (8.5-10.1) Phosphorus Level 4.1mg/dL (2.6-4.7) Albumin 2.1g/dL (3.4-5.0) Test 06/08/16 11:11 Glucose (Fingerstick) 189mg/dL (70-99) Review of Systems Review of Systems no fever, chills, sob or chest pain Assessment and Plan Assessmemt and Plan Problems Medical Problems: (1) Congestive heart failure Status: Acute (2) NSTEMI (non-ST elevated myocardial infarction) Status: Acute Problems: Comment Review of Relevant I have reviewed the following items fede (where applicable) has been applied. Labs Laboratory Tests Test 06/06/16 16:54 06/06/16 20:38 06/07/16 05:10 06/07/16 07:32 Glucose (Fingerstick) 188mg/dL (70-99) 158mg/dL (70-99) 151mg/dL (70-99) White Blood Count 6.8x10^3/uL (4.0-11.0) Red Blood Count 2.14x10^6/uL (3.50-5.40) Hemoglobin 6.8g/dL (12.0-15.5) Hematocrit 20.2% (36.0-47.0) Mean Corpuscular Volume 94fL (79-100) Mean Corpuscular Hemoglobin 32pg (25-35) Mean Corpuscular Hemoglobin Concent 34g/dL (31-37) Red Cell Distribution Width 14.6% (11.5-14.5) Platelet Count 166x10^3/uL (140-400) Neutrophils (%) (Auto) 61% (31-73) Lymphocytes (%) (Auto) 25% (24-48) Monocytes (%) (Auto) 10% (0-9) Eosinophils (%) (Auto) 4% (0-3) Basophils (%) (Auto) 1% (0-3) Neutrophils # (Auto) 4.1x10^3uL (1.8-7.7) Lymphocytes # (Auto) 1.7x10^3/uL (1.0-4.8) Monocytes # (Auto) 0.7x10^3/uL (0.0-1.1) Eosinophils # (Auto) 0.2x10^3/uL (0.0-0.7) Basophils # (Auto) 0.1x10^3/uL (0.0-0.2) Sodium Level 140mmol/L (136-145) Potassium Level 4.5mmol/L (3.5-5.1) Chloride Level 105mmol/L (98-107) Carbon Dioxide Level 24mmol/L (21-32) Anion Gap 11 (6-14) Blood Urea Nitrogen 41mg/dL (7-20) Creatinine 4.6mg/dL (0.6-1.0) Estimated GFR (Cockcroft-Gault) 9.8 Glucose Level 161mg/dL (70-99) Calcium Level 7.6mg/dL (8.5-10.1) Phosphorus Level 4.9mg/dL (2.6-4.7) Magnesium Level 2.1mg/dL (1.8-2.4) Albumin 2.0g/dL (3.4-5.0) Test 06/07/16 13:05 06/07/16 16:56 06/07/16 22:09 06/08/16 04:30 Glucose (Fingerstick) 120mg/dL (70-99) 201mg/dL (70-99) 246mg/dL (70-99) Sodium Level 139mmol/L (136-145) Potassium Level 4.1mmol/L (3.5-5.1) Chloride Level 101mmol/L (98-107) Carbon Dioxide Level 29mmol/L (21-32) Anion Gap 9 (6-14) Blood Urea Nitrogen 26mg/dL (7-20) Creatinine 3.3mg/dL (0.6-1.0) Estimated GFR (Cockcroft-Gault) 14.3 Glucose Level 184mg/dL (70-99) Calcium Level 7.5mg/dL (8.5-10.1) Phosphorus Level 4.1mg/dL (2.6-4.7) Albumin 2.1g/dL (3.4-5.0) Test 06/08/16 08:19 06/08/16 11:11 Glucose (Fingerstick) 176mg/dL (70-99) 189mg/dL (70-99) Laboratory Tests Test 06/07/16 16:56 06/07/16 22:09 06/08/16 04:30 06/08/16 08:19 Glucose (Fingerstick) 201mg/dL (70-99) 246mg/dL (70-99) 176mg/dL (70-99) Sodium Level 139mmol/L (136-145) Potassium Level 4.1mmol/L (3.5-5.1) Chloride Level 101mmol/L (98-107) Carbon Dioxide Level 29mmol/L (21-32) Anion Gap 9 (6-14) Blood Urea Nitrogen 26mg/dL (7-20) Creatinine 3.3mg/dL (0.6-1.0) Estimated GFR (Cockcroft-Gault) 14.3 Glucose Level 184mg/dL (70-99) Calcium Level 7.5mg/dL (8.5-10.1) Phosphorus Level 4.1mg/dL (2.6-4.7) Albumin 2.1g/dL (3.4-5.0) Test 06/08/16 11:11 Glucose (Fingerstick) 189mg/dL (70-99) Microbiology 06/04/16 Blood Culture - Preliminary, Resulted NO GROWTH AFTER 4 DAYS 06/06/16 Urine Culture - Final, Complete 06/06/16 Urine Culture Result 1 (KUSHAL) - Final, Complete Medications Current Medications Aspirin 324 mg 324 mg 1X ONCE PO Last administered on 06/01/16 12:59; Start at 12:45; Stop 06/01/16 at 12:48; Status DC Heparin Sodium/ Dextrose 500 ml @ 19 mls/hr CONT PRN IV SEE I/O RECORD Last administered on 06/02/16 14:45; Start 06/01/16 at 12:45; Stop 06/03/16 at 15:30; Status DC Heparin Sodium (Porcine) 1,950 unit PRN Q6HRS PRN IV FOR UFH LEVEL LESS THAN 0.2 Last administered on 06/01/16 13:01; Start 06/01/16 at 12:45; Stop 06/03/16 at 15:30; Status DC Ondansetron HCl (Zofran) 4 mg PRN Q8HRS PRN IV NAUSEA/VOMITING; Start 06/01/16 at 12:45; Stop 06/02/16 at 12:44; Status DC Morphine Sulfate 4 mg PRN Q2HR PRN IV PAIN Last administered on 06/01/16 14:03 ; Start 06/01/16 at 12:45; Stop 06/02/16 at 12:44; Status DC Nitroglycerin (Nitrostat) 0.4 mg PRN Q5MIN PRN SL CHEST PAIN Last administered on 06/01/16 14:03; Start 06/01/16 at 12:45; Stop 06/02/16 at 12:44; Status DC Amlodipine Besylate (Norvasc) 5 mg DAILYWLUN PO Last administered on 06/02/16 08:32; Start 06/01/16 at 14:00; Stop 06/02/16 at 16:02; Status DC Aspirin (Ecotrin) 81 mg DAILYWBKFT PO Last administered on 06/07/16 13:07; Start 06/01/16 at 14:00 Atorvastatin Calcium (Lipitor) 80 mg QHS PO Last administered on 06/07/16 22: 05; Start 06/01/16 at 21:00 Carvedilol (Coreg) 25 mg BIDWMEALS PO Last administered on 06/07/16 17:39; Start 06/01/16 at 17:00 Clopidogrel Bisulfate (Plavix) 75 mg DAILY PO Last administered on 06/01/16 14: 28; Start 06/01/16 at 14:00; Stop 06/02/16 at 08:41; Status DC Isosorbide Mononitrate (Imdur) 30 mg DAILY PO Last administered on 06/07/16 13 :09; Start 06/01/16 at 14:00 Furosemide (Lasix) 40 mg 1X ONCE IVP Last administered on 06/01/16 14:30; Start 06/01/16 at 14:00; Stop 06/01/16 at 14:23; Status DC Furosemide 40 mg 40 mg 1X ONCE IVP Last administered on 06/01/16 14:30; Start 06/01/16 at 14:30; Stop 06/01/16 at 14:38; Status DC Nitroglycerin/ Dextrose (Nitroglycerin Drip) 250 ml @ 0 mls/hr CONT PRN IV SEE I/O RECORD Last administered on 06/01/16 15:23; Start 06/01/16 at 14:30; Stop 06/02/16 at 16:02; Status DC Acetaminophen (Tylenol) 325 mg PRN Q6HRS PRN PO MILD PAIN / TEMP Last administered on 06/07/16 21:59; Start 06/01/16 at 15:00 Acetaminophen/ Hydrocodone Bitart (Lortab 5/325) 1 tab PRN Q6HRS PRN PO MODERATE TO SEVERE PAIN; Start 06/01/16 at 15:00 Hydralazine HCl (Apresoline) 10 mg PRN Q4HRS PRN IVP ELEVATED BP, SEE COMMENTS ; Start 06/01/16 at 15:00 Ondansetron HCl (Zofran) 4 mg PRN Q8HRS PRN IV NAUSEA/VOMITING; Start 06/01/16 at 15:00 Albuterol Sulfate (Ventolin Neb Soln) 2.5 mg PRN Q4HRS PRN NEB SHORTNESS OF BREATH; Start 06/01/16 at 15:00 Insulin Aspart (Novolog) 0-7 UNITS TIDWMEALS SQ Last administered on 06/07/16 17:45; Start 06/01/16 at 17:00 Dextrose 12.5 gm PRN Q15MIN PRN IV SEE COMMENTS; Start 06/01/16 at 15:00 Info 1 each 1 each PRN DAILY PRN MC SEE COMMENTS Last administered on 06/03/16 09:38; Start 06/01/16 at 17:00; Stop 06/04/16 at 08:25; Status DC Magnesium Sulfate/ Dextrose (Magnesium Sulfate PREMIX 2GM) 50 ml @ 25 mls/hr PRN DAILY PRN IV for Mag < 1.7 on am labs; Start 06/02/16 at 11:15 Lidocaine/Sodium Bicarbonate (Buffered Lidocaine 1%) 3 ml 1X ONCE IJ Last administered on 06/02/16 14:03; Start 06/02/16 at 12:30; Stop 06/02/16 at 12:34; Status DC Heparin Sodium (Porcine) 2,400 unit 1X ONCE INT CAT Last administered on 14:04; Start 06/02/16 at 12:30; Stop 06/02/16 at 12:34; Status DC Heparin Sodium/ Sodium Chloride 60 unit 1X ONCE IV Last administered on 14:04; Start 06/02/16 at 12:30; Stop 06/02/16 at 12:34; Status DC Lisinopril (Prinivil) 20 mg DAILY PO Last administered on 06/06/16 09:22; Start 06/02/16 at 16:00; Stop 06/07/16 at 10:31; Status DC Hydralazine HCl 50 mg 50 mg BID PO Last administered on 06/06/16 20:55; Start 06/02/16 at 21:00; Stop 06/07/16 at 10:31; Status DC Sodium Chloride (Iv Sodium Chloride 0.9% 1000ml Bag) 1,000 ml @ 1,000 mls/hr Q1H PRN IV hypotension; Start 06/02/16 at 18:28; Stop 06/03/16 at 00:27; Status DC Diphenhydramine HCl (Benadryl) 25 mg 1X PRN PRN IV ITCHING; Start 06/02/16 at 18 :30; Stop 06/03/16 at 18:29; Status DC Diphenhydramine HCl (Benadryl) 25 mg 1X PRN PRN IV ITCHING; Start 06/02/16 at 18 :30; Stop 06/03/16 at 18:29; Status DC Sodium Chloride (Normal Saline Flush) 10 ml 1X PRN PRN IV AP catheter pack; Start 06/02/16 at 18:30; Stop 06/03/16 at 18:29; Status DC Sodium Chloride 10 ml 10 ml 1X PRN PRN IV SAP PORTAL ARCHITECT catheter pack; Start 06/02/16 at 18 :30; Stop 06/03/16 at 18:29; Status DC Sodium Chloride (Iv Sodium Chloride 0.9% 1000ml Bag) 1,000 ml @ 400 mls/hr Q2H30M PRN IV PATENCY; Start 06/02/16 at 18:28; Stop 06/03/16 at 06:27; Status DC Info (PHARMACY MONITORING -- do not chart) 1 each PRN DAILY PRN MC SEE COMMENTS ; Start 06/02/16 at 18:30 Info (PHARMACY MONITORING -- do not chart) 1 each PRN DAILY PRN MC SEE COMMENTS ; Start 06/03/16 at 10:30; Status UNV Info (PHARMACY MONITORING -- do not chart) 1 each PRN DAILY PRN MC SEE COMMENTS ; Start 06/03/16 at 10:30; Status Cancel Darbepoetin Malick (Aranesp) 60 mcg WEEKLYHS SQ Last administered on 06/03/16 20: 48; Start 06/03/16 at 21:00 Clopidogrel Bisulfate (Plavix) 75 mg DAILYWBKFT PO ; Start 06/04/16 at 08:00; Stop 06/04/16 at 08:00; Status DC Clopidogrel Bisulfate 75 mg 75 mg DAILYWBKFT PO Last administered on 06/04/16 08:25; Start 06/03/16 at 15:30; Stop 06/05/16 at 18:54; Status DC Sodium Chloride (Iv Sodium Chloride 0.9% 1000ml Bag) 1,000 ml @ 1,000 mls/hr Q1H PRN IV hypotension; Start 06/04/16 at 08:11; Stop 06/04/16 at 15:00; Status DC Diphenhydramine HCl (Benadryl) 25 mg 1X PRN PRN IV ITCHING; Start 06/04/16 at 08:15; Stop 06/04/16 at 15:00; Status DC Diphenhydramine HCl (Benadryl) 25 mg 1X PRN PRN IV ITCHING; Start 06/04/16 at 08:15; Stop 06/04/16 at 15:00; Status DC Sodium Chloride (Normal Saline Flush) 10 ml 1X PRN PRN IV AP catheter pack; Start 06/04/16 at 08:15; Stop 06/04/16 at 15:00; Status DC Sodium Chloride 10 ml 10 ml 1X PRN PRN IV SAP PORTAL ARCHITECT catheter pack; Start 06/04/16 at 08:15; Stop 06/04/16 at 15:00; Status DC Sodium Chloride (Iv Sodium Chloride 0.9% 1000ml Bag) 1,000 ml @ 400 mls/hr Q2H30M PRN IV PATENCY; Start 06/04/16 at 08:11; Stop 06/04/16 at 21:00; Status DC Info 1 each 1 each PRN DAILY PRN MC SEE COMMENTS; Start 06/04/16 at 08:15; Status UNV Magnesium Sulfate/ Dextrose 100 ml @ 100 mls/hr 1X ONCE IV Last administered on 06/04/16 12:36; Start 06/04/16 at 10:30; Stop 06/04/16 at 11:29; Status DC Ceftriaxone Sodium 1 gm/ Sodium Chloride 50 ml @ 100 mls/hr Q24H IV Last administered on 06/07/16 16:13; Start 06/06/16 at 16:00 Sodium Chloride 1,000 ml @ 1,000 mls/hr Q1H PRN IV hypotension; Start 06/07/16 at 08:48; Stop 06/07/16 at 14:47; Status DC Sodium Chloride (Iv Sodium Chloride 0.9% 1000ml Bag) 1,000 ml @ 400 mls/hr Q2H30M PRN IV PATENCY; Start 06/07/16 at 08:48; Stop 06/07/16 at 20:47; Status DC Info (PHARMACY MONITORING -- do not chart) 1 each PRN DAILY PRN MC SEE COMMENTS ; Start 06/07/16 at 09:00; Status UNV Lisinopril (Prinivil) 40 mg DAILY PO ; Start 06/08/16 at 09:00 Cyanocobalamin (Vitamin B-12) 1,000 mcg DAILY PO Last administered on 16:09; Start 06/07/16 at 15:30 Ferrous Sulfate (Feosol) 325 mg BID PO Last administered on 06/07/16 22:05; Start 06/07/16 at 21:00 Active Scripts Active Lisinopril 20 Mg Tablet 20 Mg PO QHS Isosorbide Mononitrate Er (Isosorbide Mononitrate) 30 Mg Tab.er.24h 30 Mg PO DAILY Hydralazine Hcl 50 Mg Tablet 100 Mg PO TID Carvedilol 12.5 Mg Tablet 25 Mg PO BIDWMEALS Atorvastatin Calcium 40 Mg Tablet 80 Mg PO QHS Aspirin Ec (Aspirin) 81 Mg Tablet. 81 Mg PO DAILYWBKFT Amlodipine Besylate 5 Mg Tablet 5 Mg PO DAILYWLUN Reported Clopidogrel (Clopidogrel Bisulfate) 75 Mg Tablet 75 Mg PO DAILY Glyburide 5 Mg Tablet 1 Tab PO BIDWMEALS Lisinopril 20 Mg Tablet 1 Tab PO DAILY Vitals/I & O Vital Sign - Last 24 Hours 2/06/07/16 06/07/16 06/07/16 14:20 17:39 19:00 20:00 Temp 98.5 98.5 98.5 98.5 Pulse 79 79 78 Resp 20 20 B/P 130/60 130/60 137/50 Pulse Ox 100 78 O2 Delivery Room Air Room Air Room Air 06/07/16 06/08/16 06/08/16 06/08/16 23:00 03:05 07:00 08:00 Temp 98.2 98.2 98.2 98.2 98.2 98.2 Pulse 86 70 67 Resp 20 18 18 B/P 133/58 154/63 147/57 Pulse Ox 96 98 98 O2 Delivery Room Air Room Air Room Air Room Air O2 Flow Rate 2.0 06/08/16 11:10 Temp 98.4 98.4 Pulse 67 Resp 18 B/P 155/57 Pulse Ox 98 O2 Delivery Room Air Intake and Output 06/07/16 06/07/16 06/08/16 15:00 23:00 07:00 Intake Total 350 ml 0 ml Output Total 650 ml Balance 350 ml -650 ml SALLY LLOYD MD Jun 08, 2016 13:23
[2016-06-08 15:01] VITALS: BP 146/67
[2016-06-08] MEDS: CEFTRIAXONE SODIUM 1 GM in IV NORMAL SALINE 50ML 50 ML IV SCH (16:00)
[2016-06-08] MEDS ORDERED: HEPARIN for IV BOLUS 10,000 UNIT/10 ML VIAL. ONE (17:14)
[2016-06-08] MEDS ORDERED: LIDOCAINE 1%/EPI 1:100,000 20 ML VIAL. ONE (17:14)
[2016-06-08] MEDS ORDERED: MIDAZOLAM HCL 2 MG/2 ML VIAL. ONE (17:35)
[2016-06-08] MEDS ORDERED: FENTANYL PF 100 MCG/2 ML VIAL. ONE (17:35)
[2016-06-08] MEDS ORDERED: CEFAZOLIN 1GM IVPB FOR OMNI 50 ML IV ONE ×2 (17:36→18:00)
[2016-06-08] MEDS ORDERED: MIDAZOLAM HCL 2 MG/2 ML VIAL. IV ONE (18:00)
[2016-06-08] MEDS ORDERED: FENTANYL PF 100 MCG/2 ML VIAL. IV ONE (18:00)
[2016-06-08] MEDS ORDERED: HEPARIN for IV BOLUS 10,000 UNIT/10 ML VIAL. IV ONE (18:00)
[2016-06-08] MEDS ORDERED: LIDOCAINE 1%/EPI 1:100,000 20 ML VIAL. IJ ONE (18:00)
[2016-06-08 18:01] VITALS: BP 175/80
--- NOTE | 2016-06-08 18:12 | PDOC ---
MODERATE SEDATION ASSESSMENT RISKS/ALTERNATIVES Risks/Alternatives Risks and alternatives of this type of sedation and procedure discussed with: RISK/ALTERNATIVES: Patient H & P ON CHART H & P H & P on chart and reviewed for co-morbid conditions and appropriate labs. H&P ON CHART: Yes STATUS PREG STATUS ASSESSED: N/A MEDS/ALLERGIES REVIEWED Meds/Allergies Reviewed Medications and Allergies including time and route of recently administered narcotics and sedatives. MEDS/ALLERGIES REVIEWED: Yes ASA RATING ASA RATING: III AIRWAY ASSESSMENT Airway Assessment Airway patency, oral function limitations, presence of caps, crowns, dentures, partials, and ability to extend neck assessed. AIRWAY ASSESSMENT: Yes MALLAMPATI SCORE MALLAMPATI SCORE: III PRE-SEDATION ASSESSMENT PRE-SEDATION ASSESSMENT: Yes DAT MCKEON MD Jun 08, 2016 18:12
--- NOTE | 2016-06-08 18:16 | PDOC ---
Exam Cutch Cleaner Cutch Cleaner Radha Mingler Operator Mingler Operator Santiago Lama Pre-Procedure Diagnosis Pre-Procedure Diagnosis NSTEMI. CHF. ZORAN on CKD---new ESRD. Needs ongoing HD. Conversion from temp to tunneled HDC requested. Post-Procedure Diagnosis Post-Procedure Diagnosis Same Procedure Performed Procedure Performed Removal rt IJ temp HDC Sono/fluoro guided rt IJ tunneled HDC insertion Type of Anesthesia Type of Anesthesia Local + Mod sedation Estimated Blood Loss EBL: Minimal Specimens Specimans 14F 20cm Rt IJ Schon temp HDC removed and discarded Drain/Tubes Drains/Tubes Rt IJ 15.5F 28cm Dura Max tunneled HDC inserted Condition of Patient Condition of Patient Stable. No apparent complication. Disposition Disposition From IR return to 246. F/u with Renal. OK to use new tunneled HDC. Full report to follow. DAT MCKEON MD Jun 08, 2016 18:16
[2016-06-08 19:26] VITALS: BP 156/58
[2016-06-08] MEDS: HYDROCODONE/APAP 5/325MG TABLET. PO PRN (21:22)
[2016-06-08] MEDS: ATORVASTATIN CALCIUM 40 MG TABLET. PO SCH (21:23)
[2016-06-09 00:04] VITALS: BP 168/71
[2016-06-09 01:13] LABS: FOLIC ACID 6.9 ng/mL (>3.0)
[2016-06-09 02:25] VITALS: BP 172/74
[2016-06-09 06:01] LABS: BASO # 0.1 x10^3/uL (0.0-0.2); BASO % 1 % (0-3); EOS % 4 % (0-3); HEMOGLOBIN 7.2 g/dL (12.0-15.5); LYMPH # 1.6 x10^3/uL (1.0-4.8); LYMPH % 24 % (24-48); MEAN CORPUSCULAR HEMOGLOBIN 31 pg (25-35); MEAN CORPUSCULAR HGB CONC 33 g/dL (31-37); MEAN CORPUSCULAR VOLUME 94 fL (79-100); MONO % 11 % (0-9); NEUT % 60 % (31-73); PLATELET COUNT 176 x10^3/uL (140-400); RED BLOOD COUNT 2.34 x10^6/uL (3.50-5.40); RED CELL DISTRIBUTION WIDTH 14.5 % (11.5-14.5); WHITE BLOOD COUNT 6.7 x10^3/uL (4.0-11.0)
--- NOTE | 2016-06-09 06:28 | RAD ---
Removal of right IJ temporary hemodialysis catheter Ultrasound and fluoro guided placement of right IJ tunneled hemodialysis catheter Indication: 61-year-old female with acute kidney injury on chronic kidney disease. End stage renal disease. Ongoing hemodialysis required. Conversion from temporary to tunneled hemodialysis catheter has been requested by renal. Fluoro time: 1.1 minutes Kerma-Area Product: 2 Gycm2 Moderate sedation: 28 minutes moderate sedation was provided utilizing a total of 2 mg Versed and 100 mcg fentanyl, IV. The patient was appropriately monitored by a qualified independent observer throughout the time of moderate sedation. Antibiotic: A single dose of Ancef was administered within 1 hour of the procedure start time. Sterility: All elements of maximal sterile barrier technique, including the use of a cap, mask, sterile gown, sterile gloves, large sterile sheet, appropriate hand hygiene, and 2% chlorhexidine for cutaneous antisepsis (or acceptable alternative antiseptic per current guidelines) were utilized. Procedure: Informed consent was obtained from the patient, via senior strategy manager.. She was placed supine on the angiography table. Preliminary ultrasound examination of right neck revealed continued wide patency of right internal jugular vein, which was documented with a hard copy ultrasound image. The indwelling right IJ 14 Malian 20 cm Schon temporary hemodialysis catheter was then easily removed utilizing gentle traction. Hemostasis was achieved with manual pressure over right internal jugular vein. Right neck and upper chest were then prepped and draped in the usual sterile fashion, utilizing all elements of maximal sterile barrier technique, as described above. Moderate sedation was provided with IV Versed and Fentanyl. 1 gram Ancef was given IV, prophylactically. Using aseptic technique and local anesthesia, a small skin incision was made lateral to right internal jugular vein, just above clavicle. Using aseptic technique, local anesthesia, and direct ultrasound guidance, a micropuncture needle was successfully introduced into right internal jugular vein. The micropuncture needle was then exchanged over a microguidewire for a micropuncture sheath, through which an Amplatz wire was advanced into IVC, under fluoroscopic control. A second small skin incision was then made along upper anterior aspect of right chest. A subcutaneous tunnel was then fashioned between the right chest and supraclavicular incisions. A 15.5 F 28 cm Dura Max dialysis catheter was pulled through the subcutaneous tunnel from inferior to superior, utilizing the tunneling device provided. The right IJ venostomy tract was then sequentially dilated and the 15.5 Malian dialysis catheter was easily advanced centrally through a 16 Malian peel-away sheath, and was positioned with its tip at the level of upper right atrium utilizing fluoroscopic guidance. This catheter was demonstrated to flush and aspirate normally, was packed, and was secured at the right chest exit site utilizing 2-0 Prolene and sterile dressing. The small supraclavicular incision was closed with 4-0 Vicryl, Steri-Strips, and sterile dressing. Patient tolerated the procedure well without apparent complication. Satisfactory position of the dialysis catheter was confirmed with a single fluoroscopic spot image. Impression: Successful, uneventful ultrasound and fluoro guided placement of right IJ 15.5 F 28 cm Dura Max tunneled hemodialysis catheter, following removal of right IJ 14 Malian 20 cm Schon temporary hemodialysis catheter, as described.
[2016-06-09 06:33] LABS: ALBUMIN 2.1 g/dL (3.4-5.0); CALCIUM 7.8 mg/dL (8.5-10.1); CREATININE 4.2 mg/dL (0.6-1.0); GFR 10.8; PHOSPHORUS 4.9 mg/dL (2.6-4.7); POTASSIUM 4.3 mmol/L (3.5-5.1)
[2016-06-09 07:30] VITALS: BP 161/59
[2016-06-09] MEDS: INSULIN ASPART 300 UNITS/3 ML INSULN.PEN SQ SCH ×3 (08:00→17:40)
--- NOTE | 2016-06-09 11:26 | PDOC ---
Renal-Progress Notes Subjective Notes Notes NONE History of Present Illness Hx of present illness NO CHANGE Vitals Vitals Vital Signs Date Time Temp Pulse Resp B/P Pulse Ox O2 Delivery O2 Flow Rate FiO2 06/09/16 08:17 95 Room Air 06/09/16 07:30 98.0 71 18 161/59 98.0 06/08/16 18:04 2.0 Weight Weight [ ] I.O. Intake and Output Intake and Output 06/09/16 06:59 Intake Total 0 ml Output Total 200 ml Balance -200 ml Intake Oral 0 ml Output Urine Total 200 ml # Voids 1 Labs Labs Laboratory Tests Test 06/08/16 17:14 06/08/16 20:47 06/09/16 05:23 06/09/16 08:20 Glucose (Fingerstick) 128mg/dL (70-99) 268mg/dL (70-99) 151mg/dL (70-99) White Blood Count 6.7x10^3/uL (4.0-11.0) Red Blood Count 2.34x10^6/uL (3.50-5.40) Hemoglobin 7.2g/dL (12.0-15.5) Hematocrit 22.0% (36.0-47.0) Mean Corpuscular Volume 94fL (79-100) Mean Corpuscular Hemoglobin 31pg (25-35) Mean Corpuscular Hemoglobin Concent 33g/dL (31-37) Red Cell Distribution Width 14.5% (11.5-14.5) Platelet Count 176x10^3/uL (140-400) Neutrophils (%) (Auto) 60% (31-73) Lymphocytes (%) (Auto) 24% (24-48) Monocytes (%) (Auto) 11% (0-9) Eosinophils (%) (Auto) 4% (0-3) Basophils (%) (Auto) 1% (0-3) Neutrophils # (Auto) 4.1x10^3uL (1.8-7.7) Lymphocytes # (Auto) 1.6x10^3/uL (1.0-4.8) Monocytes # (Auto) 0.7x10^3/uL (0.0-1.1) Eosinophils # (Auto) 0.3x10^3/uL (0.0-0.7) Basophils # (Auto) 0.1x10^3/uL (0.0-0.2) Sodium Level 140mmol/L (136-145) Potassium Level 4.3mmol/L (3.5-5.1) Chloride Level 103mmol/L (98-107) Carbon Dioxide Level 28mmol/L (21-32) Anion Gap 9 (6-14) Blood Urea Nitrogen 34mg/dL (7-20) Creatinine 4.2mg/dL (0.6-1.0) Estimated GFR (Cockcroft-Gault) 10.8 Glucose Level 138mg/dL (70-99) Calcium Level 7.8mg/dL (8.5-10.1) Phosphorus Level 4.9mg/dL (2.6-4.7) Albumin 2.1g/dL (3.4-5.0) Micro Micro Microbiology 06/04/16 Blood Culture - Final, Complete NO GROWTH AFTER 5 DAYS 06/06/16 Urine Culture - Final, Complete 06/06/16 Urine Culture Result 1 (KUSHAL) - Final, Complete Review of Systems Constitutional: yes: alert, oriented Ears/Nose/Throat: Yes: no symptom reported Eyes: Yes: no symptom reported Pulmonary: Yes no symptom reported Cardiovascular: Yes no symptom reported Gastrointestional: Yes: constipation Genitourinary: Yes: no symptom reported Musculoskeletal: Yes: muscle stiffness Physical Exam General Appearance: no apparent distress Skin: warm Respiratory: bilateral CTA Heart: S1S2, RRR Abdomen: soft, bowel sounds present Neurology: alert, oriented Assessment Assessment IMP NEW ESRD ANEMIA PLAN HD TODAY UF TO DW WILL SET UP OP HD [facility] WHERE HER DIALYZES D/W WITH CM WILL FOLLOW ЕЛЕНА MANZANO MD Jun 09, 2016 11:26
--- NOTE | 2016-06-09 13:45 | PDOC ---
PROGRESS NOTES Chief Complaint Chief Complaint cc: sob A//P 1. Acute on chronic systolic congestive heart failure. improved 2. Lgg-HI-rexxhac elevation myocardial infarction. 3. ZORAN with CKD 4. Ischemic cardiomyopathy. 5. Malignant hypertension, Better 6. Anemia 7. Hyperlipidemia. 8. Psoriasis. 9. CAD 10. Anemia 11. UTI not POA Plan IV Rocephin, fu ucx HD per nephrology SW to arrange out pt HD BP controlled, low hemoglobin but pt declined to have blood products due to episcopal reasons. risks and benefits explained. check vitb12, fa, add iron po SSI Lipitor labs reviewed Monitor hemoglobin Prognosis guarded. talked to daughter at bedside talked to CARD, NO intervention now given low HB, PT WILL get HD perm cath today , dc in 1-2ds when outpt HD set up History of Present Illness History of Present Illness sob better no fever no chills. no chest pain still dysuria, frequent urination Vitals Vitals Vital Signs Date Time Temp Pulse Resp B/P Pulse Ox O2 Delivery O2 Flow Rate FiO2 06/09/16 08:17 95 Room Air 06/09/16 07:30 98.0 71 18 161/59 98.0 06/08/16 18:04 2.0 Physical Exam General: Alert, Oriented X3 Heart: Regular rate, Normal S1, Normal S2, No murmurs, Gallops Lungs: Clear, Other Abdomen: Normal bowel sounds, Soft, No tenderness, No hepatosplenomegaly, No masses Extremities: No clubbing, No cyanosis, No edema, Normal pulses, No tenderness/ swelling Skin: No breakdown, No significant lesion, Other (psoriasis ) Labs LABS Laboratory Tests Test 06/08/16 17:14 06/08/16 20:47 06/09/16 05:23 06/09/16 08:20 Glucose (Fingerstick) 128mg/dL (70-99) 268mg/dL (70-99) 151mg/dL (70-99) White Blood Count 6.7x10^3/uL (4.0-11.0) Red Blood Count 2.34x10^6/uL (3.50-5.40) Hemoglobin 7.2g/dL (12.0-15.5) Hematocrit 22.0% (36.0-47.0) Mean Corpuscular Volume 94fL (79-100) Mean Corpuscular Hemoglobin 31pg (25-35) Mean Corpuscular Hemoglobin Concent 33g/dL (31-37) Red Cell Distribution Width 14.5% (11.5-14.5) Platelet Count 176x10^3/uL (140-400) Neutrophils (%) (Auto) 60% (31-73) Lymphocytes (%) (Auto) 24% (24-48) Monocytes (%) (Auto) 11% (0-9) Eosinophils (%) (Auto) 4% (0-3) Basophils (%) (Auto) 1% (0-3) Neutrophils # (Auto) 4.1x10^3uL (1.8-7.7) Lymphocytes # (Auto) 1.6x10^3/uL (1.0-4.8) Monocytes # (Auto) 0.7x10^3/uL (0.0-1.1) Eosinophils # (Auto) 0.3x10^3/uL (0.0-0.7) Basophils # (Auto) 0.1x10^3/uL (0.0-0.2) Sodium Level 140mmol/L (136-145) Potassium Level 4.3mmol/L (3.5-5.1) Chloride Level 103mmol/L (98-107) Carbon Dioxide Level 28mmol/L (21-32) Anion Gap 9 (6-14) Blood Urea Nitrogen 34mg/dL (7-20) Creatinine 4.2mg/dL (0.6-1.0) Estimated GFR (Cockcroft-Gault) 10.8 Glucose Level 138mg/dL (70-99) Calcium Level 7.8mg/dL (8.5-10.1) Phosphorus Level 4.9mg/dL (2.6-4.7) Albumin 2.1g/dL (3.4-5.0) Review of Systems Review of Systems no fever, chills, sob or chest pain Assessment and Plan Assessmemt and Plan Problems Medical Problems: (1) Congestive heart failure Status: Acute (2) NSTEMI (non-ST elevated myocardial infarction) Status: Acute Problems: Comment Review of Relevant I have reviewed the following items fede (where applicable) has been applied. Labs Laboratory Tests Test 06/07/16 16:56 06/07/16 22:09 06/08/16 04:30 06/08/16 08:19 Glucose (Fingerstick) 201mg/dL (70-99) 246mg/dL (70-99) 176mg/dL (70-99) Sodium Level 139mmol/L (136-145) Potassium Level 4.1mmol/L (3.5-5.1) Chloride Level 101mmol/L (98-107) Carbon Dioxide Level 29mmol/L (21-32) Anion Gap 9 (6-14) Blood Urea Nitrogen 26mg/dL (7-20) Creatinine 3.3mg/dL (0.6-1.0) Estimated GFR (Cockcroft-Gault) 14.3 Glucose Level 184mg/dL (70-99) Calcium Level 7.5mg/dL (8.5-10.1) Phosphorus Level 4.1mg/dL (2.6-4.7) Albumin 2.1g/dL (3.4-5.0) Vitamin B12 Level 633pg/mL (211-946) Folic Acid (LAB) 6.9ng/mL (>3.0) Test 06/08/16 11:11 06/08/16 17:14 06/08/16 20:47 06/09/16 05:23 Glucose (Fingerstick) 189mg/dL (70-99) 128mg/dL (70-99) 268mg/dL (70-99) White Blood Count 6.7x10^3/uL (4.0-11.0) Red Blood Count 2.34x10^6/uL (3.50-5.40) Hemoglobin 7.2g/dL (12.0-15.5) Hematocrit 22.0% (36.0-47.0) Mean Corpuscular Volume 94fL (79-100) Mean Corpuscular Hemoglobin 31pg (25-35) Mean Corpuscular Hemoglobin Concent 33g/dL (31-37) Red Cell Distribution Width 14.5% (11.5-14.5) Platelet Count 176x10^3/uL (140-400) Neutrophils (%) (Auto) 60% (31-73) Lymphocytes (%) (Auto) 24% (24-48) Monocytes (%) (Auto) 11% (0-9) Eosinophils (%) (Auto) 4% (0-3) Basophils (%) (Auto) 1% (0-3) Neutrophils # (Auto) 4.1x10^3uL (1.8-7.7) Lymphocytes # (Auto) 1.6x10^3/uL (1.0-4.8) Monocytes # (Auto) 0.7x10^3/uL (0.0-1.1) Eosinophils # (Auto) 0.3x10^3/uL (0.0-0.7) Basophils # (Auto) 0.1x10^3/uL (0.0-0.2) Sodium Level 140mmol/L (136-145) Potassium Level 4.3mmol/L (3.5-5.1) Chloride Level 103mmol/L (98-107) Carbon Dioxide Level 28mmol/L (21-32) Anion Gap 9 (6-14) Blood Urea Nitrogen 34mg/dL (7-20) Creatinine 4.2mg/dL (0.6-1.0) Estimated GFR (Cockcroft-Gault) 10.8 Glucose Level 138mg/dL (70-99) Calcium Level 7.8mg/dL (8.5-10.1) Phosphorus Level 4.9mg/dL (2.6-4.7) Albumin 2.1g/dL (3.4-5.0) Test 06/09/16 08:20 Glucose (Fingerstick) 151mg/dL (70-99) Laboratory Tests Test 06/08/16 17:14 06/08/16 20:47 06/09/16 05:23 06/09/16 08:20 Glucose (Fingerstick) 128mg/dL (70-99) 268mg/dL (70-99) 151mg/dL (70-99) White Blood Count 6.7x10^3/uL (4.0-11.0) Red Blood Count 2.34x10^6/uL (3.50-5.40) Hemoglobin 7.2g/dL (12.0-15.5) Hematocrit 22.0% (36.0-47.0) Mean Corpuscular Volume 94fL (79-100) Mean Corpuscular Hemoglobin 31pg (25-35) Mean Corpuscular Hemoglobin Concent 33g/dL (31-37) Red Cell Distribution Width 14.5% (11.5-14.5) Platelet Count 176x10^3/uL (140-400) Neutrophils (%) (Auto) 60% (31-73) Lymphocytes (%) (Auto) 24% (24-48) Monocytes (%) (Auto) 11% (0-9) Eosinophils (%) (Auto) 4% (0-3) Basophils (%) (Auto) 1% (0-3) Neutrophils # (Auto) 4.1x10^3uL (1.8-7.7) Lymphocytes # (Auto) 1.6x10^3/uL (1.0-4.8) Monocytes # (Auto) 0.7x10^3/uL (0.0-1.1) Eosinophils # (Auto) 0.3x10^3/uL (0.0-0.7) Basophils # (Auto) 0.1x10^3/uL (0.0-0.2) Sodium Level 140mmol/L (136-145) Potassium Level 4.3mmol/L (3.5-5.1) Chloride Level 103mmol/L (98-107) Carbon Dioxide Level 28mmol/L (21-32) Anion Gap 9 (6-14) Blood Urea Nitrogen 34mg/dL (7-20) Creatinine 4.2mg/dL (0.6-1.0) Estimated GFR (Cockcroft-Gault) 10.8 Glucose Level 138mg/dL (70-99) Calcium Level 7.8mg/dL (8.5-10.1) Phosphorus Level 4.9mg/dL (2.6-4.7) Albumin 2.1g/dL (3.4-5.0) Microbiology 06/04/16 Blood Culture - Final, Complete NO GROWTH AFTER 5 DAYS 06/06/16 Urine Culture - Final, Complete 06/06/16 Urine Culture Result 1 (KUSHAL) - Final, Complete Medications Current Medications Aspirin 324 mg 324 mg 1X ONCE PO Last administered on 06/01/16t 12:59; Start at 12:45; Stop 06/01/16 at 12:48; Status DC Heparin Sodium/ Dextrose 500 ml @ 19 mls/hr CONT PRN IV SEE I/O RECORD Last administered on 06/02/16 14:45; Start 06/01/16 at 12:45; Stop 06/03/16 at 15:30; Status DC Heparin Sodium (Porcine) 1,950 unit PRN Q6HRS PRN IV FOR UFH LEVEL LESS THAN 0.2 Last administered on 06/01/16 13:01; Start 06/01/16 at 12:45; Stop 06/03/16 at 15:30; Status DC Ondansetron HCl (Zofran) 4 mg PRN Q8HRS PRN IV NAUSEA/VOMITING; Start 06/01/16 at 12:45; Stop 06/02/16 at 12:44; Status DC Morphine Sulfate 4 mg PRN Q2HR PRN IV PAIN Last administered on 06/01/16 14:03 ; Start 06/01/16 at 12:45; Stop 06/02/16 at 12:44; Status DC Nitroglycerin (Nitrostat) 0.4 mg PRN Q5MIN PRN SL CHEST PAIN Last administered on 06/01/16 14:03; Start 06/01/16 at 12:45; Stop 06/02/16 at 12:44; Status DC Amlodipine Besylate (Norvasc) 5 mg DAILYWLUN PO Last administered on 06/02/16 08:32; Start 06/01/16 at 14:00; Stop 06/02/16 at 16:02; Status DC Aspirin (Ecotrin) 81 mg DAILYWBKFT PO Last administered on 06/07/16 13:07; Start 06/01/16 at 14:00 Atorvastatin Calcium (Lipitor) 80 mg QHS PO Last administered on 06/08/16 21: 23; Start 06/01/16 at 21:00 Carvedilol (Coreg) 25 mg BIDWMEALS PO Last administered on 06/08/16 17:00; Start 06/01/16 at 17:00 Clopidogrel Bisulfate (Plavix) 75 mg DAILY PO Last administered on 06/01/16 14: 28; Start 06/01/16 at 14:00; Stop 06/02/16 at 08:41; Status DC Isosorbide Mononitrate (Imdur) 30 mg DAILY PO Last administered on 06/07/16 13 :09; Start 06/01/16 at 14:00 Furosemide (Lasix) 40 mg 1X ONCE IVP Last administered on 06/01/16 14:30; Start 06/01/16 at 14:00; Stop 06/01/16 at 14:23; Status DC Furosemide 40 mg 40 mg 1X ONCE IVP Last administered on 06/01/16 14:30; Start 06/01/16 at 14:30; Stop 06/01/16 at 14:38; Status DC Nitroglycerin/ Dextrose (Nitroglycerin Drip) 250 ml @ 0 mls/hr CONT PRN IV SEE I/O RECORD Last administered on 06/01/16 15:23; Start 06/01/16 at 14:30; Stop 06/02/16 at 16:02; Status DC Acetaminophen (Tylenol) 325 mg PRN Q6HRS PRN PO MILD PAIN / TEMP Last administered on 06/07/16 21:59; Start 06/01/16 at 15:00 Acetaminophen/ Hydrocodone Bitart (Lortab 5/325) 1 tab PRN Q6HRS PRN PO MODERATE TO SEVERE PAIN Last administered on 06/08/16 21:22; Start 06/01/16 at 15:00 Hydralazine HCl (Apresoline) 10 mg PRN Q4HRS PRN IVP ELEVATED BP, SEE COMMENTS ; Start 06/01/16 at 15:00 Ondansetron HCl (Zofran) 4 mg PRN Q8HRS PRN IV NAUSEA/VOMITING; Start 06/01/16 at 15:00 Albuterol Sulfate (Ventolin Neb Soln) 2.5 mg PRN Q4HRS PRN NEB SHORTNESS OF BREATH; Start 06/01/16 at 15:00 Insulin Aspart (Novolog) 0-7 UNITS TIDWMEALS SQ Last administered on 06/07/16 17:45; Start 06/01/16 at 17:00 Dextrose 12.5 gm PRN Q15MIN PRN IV SEE COMMENTS; Start 06/01/16 at 15:00 Info 1 each 1 each PRN DAILY PRN MC SEE COMMENTS Last administered on 06/03/16 09:38; Start 06/01/16 at 17:00; Stop 06/04/16 at 08:25; Status DC Magnesium Sulfate/ Dextrose (Magnesium Sulfate PREMIX 2GM) 50 ml @ 25 mls/hr PRN DAILY PRN IV for Mag < 1.7 on am labs; Start 06/02/16 at 11:15 Lidocaine/Sodium Bicarbonate (Buffered Lidocaine 1%) 3 ml 1X ONCE IJ Last administered on 06/02/16 14:03; Start 06/02/16 at 12:30; Stop 06/02/16 at 12:34; Status DC Heparin Sodium (Porcine) 2,400 unit 1X ONCE INT CAT Last administered on 14:04; Start 06/02/16 at 12:30; Stop 06/02/16 at 12:34; Status DC Heparin Sodium/ Sodium Chloride 60 unit 1X ONCE IV Last administered on 14:04; Start 06/02/16 at 12:30; Stop 06/02/16 at 12:34; Status DC Lisinopril (Prinivil) 20 mg DAILY PO Last administered on 06/06/16 09:22; Start 06/02/16 at 16:00; Stop 06/07/16 at 10:31; Status DC Hydralazine HCl 50 mg 50 mg BID PO Last administered on 06/06/16 20:55; Start 06/02/16 at 21:00; Stop 06/07/16 at 10:31; Status DC Sodium Chloride (Iv Sodium Chloride 0.9% 1000ml Bag) 1,000 ml @ 1,000 mls/hr Q1H PRN IV hypotension; Start 06/02/16 at 18:28; Stop 06/03/16 at 00:27; Status DC Diphenhydramine HCl (Benadryl) 25 mg 1X PRN PRN IV ITCHING; Start 06/02/16 at 18 :30; Stop 06/03/16 at 18:29; Status DC Diphenhydramine HCl (Benadryl) 25 mg 1X PRN PRN IV ITCHING; Start 06/02/16 at 18 :30; Stop 06/03/16 at 18:29; Status DC Sodium Chloride (Normal Saline Flush) 10 ml 1X PRN PRN IV AP catheter pack; Start 06/02/16 at 18:30; Stop 06/03/16 at 18:29; Status DC Sodium Chloride 10 ml 10 ml 1X PRN PRN IV TIME BROKER catheter pack; Start 06/02/16 at 18 :30; Stop 06/03/16 at 18:29; Status DC Sodium Chloride (Iv Sodium Chloride 0.9% 1000ml Bag) 1,000 ml @ 400 mls/hr Q2H30M PRN IV PATENCY; Start 06/02/16 at 18:28; Stop 06/03/16 at 06:27; Status DC Info (PHARMACY MONITORING -- do not chart) 1 each PRN DAILY PRN MC SEE COMMENTS ; Start 06/02/16 at 18:30 Info (PHARMACY MONITORING -- do not chart) 1 each PRN DAILY PRN MC SEE COMMENTS ; Start 06/03/16 at 10:30; Status UNV Info (PHARMACY MONITORING -- do not chart) 1 each PRN DAILY PRN MC SEE COMMENTS ; Start 06/03/16 at 10:30; Status Cancel Darbepoetin Malick (Aranesp) 60 mcg WEEKLYHS SQ Last administered on 06/03/16 20: 48; Start 06/03/16 at 21:00 Clopidogrel Bisulfate (Plavix) 75 mg DAILYWBKFT PO ; Start 06/04/16 at 08:00; Stop 06/04/16 at 08:00; Status DC Clopidogrel Bisulfate 75 mg 75 mg DAILYWBKFT PO Last administered on 06/04/16 08:25; Start 06/03/16 at 15:30; Stop 06/05/16 at 18:54; Status DC Sodium Chloride (Iv Sodium Chloride 0.9% 1000ml Bag) 1,000 ml @ 1,000 mls/hr Q1H PRN IV hypotension; Start 06/04/16 at 08:11; Stop 06/04/16 at 15:00; Status DC Diphenhydramine HCl (Benadryl) 25 mg 1X PRN PRN IV ITCHING; Start 06/04/16 at 08:15; Stop 06/04/16 at 15:00; Status DC Diphenhydramine HCl (Benadryl) 25 mg 1X PRN PRN IV ITCHING; Start 06/04/16 at 08:15; Stop 06/04/16 at 15:00; Status DC Sodium Chloride (Normal Saline Flush) 10 ml 1X PRN PRN IV AP catheter pack; Start 06/04/16 at 08:15; Stop 06/04/16 at 15:00; Status DC Sodium Chloride 10 ml 10 ml 1X PRN PRN IV TIME BROKER catheter pack; Start 06/04/16 at 08:15; Stop 06/04/16 at 15:00; Status DC Sodium Chloride (Iv Sodium Chloride 0.9% 1000ml Bag) 1,000 ml @ 400 mls/hr Q2H30M PRN IV PATENCY; Start 06/04/16 at 08:11; Stop 06/04/16 at 21:00; Status DC Info 1 each 1 each PRN DAILY PRN MC SEE COMMENTS; Start 06/04/16 at 08:15; Status UNV Magnesium Sulfate/ Dextrose 100 ml @ 100 mls/hr 1X ONCE IV Last administered on 06/04/16 12:36; Start 06/04/16 at 10:30; Stop 06/04/16 at 11:29; Status DC Ceftriaxone Sodium 1 gm/ Sodium Chloride 50 ml @ 100 mls/hr Q24H IV Last administered on 06/08/16 16:00; Start 06/06/16 at 16:00 Sodium Chloride 1,000 ml @ 1,000 mls/hr Q1H PRN IV hypotension; Start 06/07/16 at 08:48; Stop 06/07/16 at 14:47; Status DC Sodium Chloride (Iv Sodium Chloride 0.9% 1000ml Bag) 1,000 ml @ 400 mls/hr Q2H30M PRN IV PATENCY; Start 06/07/16 at 08:48; Stop 06/07/16 at 20:47; Status DC Info (PHARMACY MONITORING -- do not chart) 1 each PRN DAILY PRN MC SEE COMMENTS ; Start 06/07/16 at 09:00; Status UNV Lisinopril (Prinivil) 40 mg DAILY PO ; Start 06/08/16 at 09:00 Cyanocobalamin (Vitamin B-12) 1,000 mcg DAILY PO Last administered on 16:09; Start 06/07/16 at 15:30 Ferrous Sulfate (Feosol) 325 mg BID PO Last administered on 06/08/16 21:23; Start 06/07/16 at 21:00 Heparin Sodium (Porcine) 10,000 unit STK-MED ONCE .ROUTE ; Start 06/08/16 at 17: 14; Stop 06/08/16 at 17:15; Status DC Lidocaine/ Epinephrine 20 ml 20 ml STK-MED ONCE .ROUTE ; Start 06/08/16 at 17:14 ; Stop 06/08/16 at 17:15; Status DC Heparin Sodium/ Sodium Chloride 500 ml @ As Directed STK-MED ONCE .ROUTE ; Start 06/08/16 at 17:14; Stop 06/08/16 at 17:15; Status DC Fentanyl Citrate (Fentanyl 2ml Vial) 100 mcg STK-MED ONCE .ROUTE ; Start at 17:35; Stop 06/08/16 at 17:36; Status DC Midazolam HCl 2 mg 2 mg STK-MED ONCE .ROUTE ; Start 06/08/16 at 17:35; Stop at 17:36; Status DC Cefazolin Sodium (Ancef 1gm Ivpb For Omni) 50 ml @ As Directed STK-MED ONCE IV ; Start 06/08/16 at 17:36; Stop 06/08/16 at 17:37; Status DC Heparin Sodium/ Sodium Chloride 1,000 unit 1X ONCE IART Last administered on 18:04; Start 06/08/16 at 18:00; Stop 06/08/16 at 18:02; Status DC Midazolam HCl (Versed) 2 mg 1X ONCE IV Last administered on 06/08/16 18:04; Start 06/08/16 at 18:00; Stop 06/08/16 at 18:02; Status DC Fentanyl Citrate (Fentanyl 2ml Vial) 100 mcg 1X ONCE IV Last administered on 18:04; Start 06/08/16 at 18:00; Stop 06/08/16 at 18:02; Status DC Heparin Sodium (Porcine) 4300 unit 4,300 unit 1X ONCE IV Last administered on 06/08/16 18:05; Start 06/08/16 at 18:00; Stop 06/08/16 at 18:02; Status DC Cefazolin Sodium (Ancef 1gm Ivpb For Omni) 50 ml @ 100 mls/hr 1X ONCE IV Last administered on 06/08/16 18:06; Start 06/08/16 at 18:00; Stop 06/08/16 at 18:29; Status DC Lidocaine/ Epinephrine (Xylocaine 1%-Epi 1:100,000) 10 ml 1X ONCE IJ Last administered on 2/14/17at 18:05; Start 06/08/16 at 18:00; Stop 06/08/16 at 18:02 ; Status DC Active Scripts Active Lisinopril 20 Mg Tablet 20 Mg PO QHS Isosorbide Mononitrate Er (Isosorbide Mononitrate) 30 Mg Tab.er.24h 30 Mg PO DAILY Hydralazine Hcl 50 Mg Tablet 100 Mg PO TID Carvedilol 12.5 Mg Tablet 25 Mg PO BIDWMEALS Atorvastatin Calcium 40 Mg Tablet 80 Mg PO QHS Aspirin Ec (Aspirin) 81 Mg Tablet.dr 81 Mg PO DAILYWBKFT Amlodipine Besylate 5 Mg Tablet 5 Mg PO DAILYWLUN Reported Clopidogrel (Clopidogrel Bisulfate) 75 Mg Tablet 75 Mg PO DAILY Glyburide 5 Mg Tablet 1 Tab PO BIDWMEALS Lisinopril 20 Mg Tablet 1 Tab PO DAILY Vitals/I & O Vital Sign - Last 24 Hours 06/08/16 06/08/16 06/08/16 06/08/16 15:01 17:00 18:01 18:04 Temp 98.3 98.3 Pulse 71 74 74 Resp 18 16 16 B/P 146/67 175/80 Pulse Ox 98 100 100 O2 Delivery Room Air Nasal Cannula Nasal Cannula O2 Flow Rate 2.0 2.0 06/08/16 06/08/16 06/09/16 06/09/16 19:26 20:00 00:04 02:25 Temp 97.9 98.2 97.9 97.9 98.2 97.9 Pulse 75 77 77 Resp 16 18 20 B/P 156/58 168/71 172/74 Pulse Ox 96 97 97 O2 Delivery Room Air Room Air Room Air Room Air 06/09/16 06/09/16 06/09/16 07:30 07:48 08:17 Temp 98.0 98.0 Pulse 71 Resp 18 B/P 161/59 Pulse Ox 95 95 O2 Delivery Room Air Room Air Room Air Intake and Output 06/08/16 06/08/16 06/09/16 15:00 23:00 07:00 Intake Total 0 ml Output Total 200 ml Balance 0 ml -200 ml SALLY LLOYD MD Jun 09, 2016 13:45
[2016-06-09] MEDS: ASPIRIN ENTERIC COATED 81 MG TABLET.DR. PO SCH (14:29)
[2016-06-09] MEDS: FERROUS SULFATE 325 MG TABLET PO SCH ×2 (14:29→21:08)
[2016-06-09] MEDS: CYANOCOBALAMIN (VITAMIN B-12) 1,000 MCG TABLET. PO SCH (14:29)
[2016-06-09] MEDS: ISOSORBIDE MONONITRATE ER 30 MG TAB.ER.24H PO SCH (14:30)
[2016-06-09] MEDS: CARVEDILOL 12.5 MG TABLET PO SCH ×2 (14:30→17:36)
[2016-06-09] MEDS: LISINOPRIL 40 MG TABLET. PO SCH (14:31)
[2016-06-09] MEDS ORDERED: IV NORMAL SALINE 1000ML BAG 1,000 ML IV PRN ×2 (14:32)
[2016-06-09] MEDS ORDERED: ALBUMIN HUMAN 25% 200 ML IV PRN (14:45)
[2016-06-09] MEDS ORDERED: 0.9 % SODIUM CHLORIDE 10 ML DISP.SYRIN. IV PRN ×2 (14:45)
[2016-06-09 14:54] VITALS: BP 156/97
[2016-06-09] MEDS: CEFTRIAXONE SODIUM 1 GM in IV NORMAL SALINE 50ML 50 ML IV SCH (17:35)
[2016-06-09 19:22] VITALS: BP 146/65
[2016-06-09] MEDS: ATORVASTATIN CALCIUM 40 MG TABLET. PO SCH (21:09)
[2016-06-09] MEDS: HYDROCODONE/APAP 5/325MG TABLET. PO PRN (21:18)
[2016-06-09 23:28] VITALS: BP 127/48
[2016-06-10 02:51] VITALS: BP 134/58
[2016-06-10 07:00] VITALS: BP 155/59
[2016-06-10] MEDS: INSULIN ASPART 300 UNITS/3 ML INSULN.PEN SQ SCH ×3 (08:00→18:05)
[2016-06-10 11:00] VITALS: BP 149/50
[2016-06-10] MEDS: ASPIRIN ENTERIC COATED 81 MG TABLET.DR. PO SCH (11:03)
[2016-06-10] MEDS: FERROUS SULFATE 325 MG TABLET PO SCH ×2 (11:03→20:52)
[2016-06-10] MEDS: CYANOCOBALAMIN (VITAMIN B-12) 1,000 MCG TABLET. PO SCH (11:03)
[2016-06-10] MEDS: ISOSORBIDE MONONITRATE ER 30 MG TAB.ER.24H PO SCH (11:03)
[2016-06-10] MEDS: CARVEDILOL 12.5 MG TABLET PO SCH ×2 (11:04→18:04)
[2016-06-10] MEDS: LISINOPRIL 40 MG TABLET. PO SCH (11:08)
--- NOTE | 2016-06-10 11:29 | PDOC ---
Renal-Progress Notes Subjective Notes Notes NONE History of Present Illness Hx of present illness NO CHANGE Vitals Vitals Vital Signs Date Time Temp Pulse Resp B/P Pulse Ox O2 Delivery O2 Flow Rate FiO2 06/10/16 11:08 70 149/50 06/10/16 07:33 Room Air 06/10/16 07:00 98.6 18 94 98.6 Weight Weight [ ] I.O. Intake and Output Intake and Output 06/10/16 07:00 Intake Total 240 ml Output Total 100 ml Balance 140 ml Intake Oral 240 ml Output Urine Total 100 ml # Voids 3 Labs Labs Laboratory Tests Test 06/09/16 16:56 06/09/16 20:49 06/10/16 08:30 Glucose (Fingerstick) 345mg/dL (70-99) 250mg/dL (70-99) 225mg/dL (70-99) Micro Micro Microbiology 06/04/16 Blood Culture - Final, Complete NO GROWTH AFTER 5 DAYS 06/06/16 Urine Culture - Final, Complete 06/06/16 Urine Culture Result 1 (KUSHAL) - Final, Complete Review of Systems Constitutional: yes: alert, oriented Ears/Nose/Throat: Yes: no symptom reported Eyes: Yes: no symptom reported Pulmonary: Yes no symptom reported Cardiovascular: Yes no symptom reported Gastrointestional: Yes: constipation Genitourinary: Yes: no symptom reported Musculoskeletal: Yes: muscle stiffness Physical Exam General Appearance: no apparent distress Skin: warm Respiratory: bilateral CTA Heart: S1S2, RRR Abdomen: soft, bowel sounds present Neurology: alert, oriented Assessment Assessment IMP NEW ESRD ANEMIA S/P NEW TUNNELED HD CATHETER PLAN HD TOMORROW WILL SET UP OP HD AT [facility] WHERE HER DIALYZES D/W WITH ЕЛЕНА VIDAL MD Jun 10, 2016 11:29
[2016-06-10 14:51] VITALS: BP 134/47
--- NOTE | 2016-06-10 15:03 | PDOC ---
PROGRESS NOTES Chief Complaint Chief Complaint cc: sob A//P 1. Acute on chronic systolic congestive heart failure. improved 2. Mdk-[id number]-[id number] elevation myocardial infarction. 3. ZORAN with CKD 4. Ischemic cardiomyopathy. 5. Malignant hypertension, Better 6. Anemia 7. Hyperlipidemia. 8. Psoriasis. 9. CAD 10. Anemia 11. UTI not POA 12. DM2 Plan IV Rocephin, fu ucx HD per nephrology SW to arrange out pt HD BP controlled, low hemoglobin but pt declined to have blood products due to [employer]eterian reasons. risks and benefits explained. check vitb12, fa, add iron po SSI Lipitor labs reviewed Monitor hemoglobin Prognosis guarded. talked to daughter at bedside CHECK hba1c, add glimepiride 1mg daily talked to CARD, NO intervention now given low HB, PT WILL get HD perm cath today , dc in 1-2ds when outpt HD set up History of Present Illness History of Present Illness sob better no fever no chills. no chest pain still dysuria, much better. no frequent urination Vitals Vitals Vital Signs Date Time Temp Pulse Resp B/P Pulse Ox O2 Delivery O2 Flow Rate FiO2 06/10/16 14:51 98.8 67 18 134/47 96 Nasal Cannula 98.8 Physical Exam General: Alert, Oriented X3 Heart: Regular rate, Normal S1, Normal S2, No murmurs, Gallops Lungs: Clear, Other Abdomen: Normal bowel sounds, Soft, No tenderness, No hepatosplenomegaly, No masses Extremities: No clubbing, No cyanosis, No edema, Normal pulses, No tenderness/ swelling Skin: No breakdown, No significant lesion, Other (psoriasis ) Labs LABS Laboratory Tests Test 06/09/16 16:56 06/09/16 20:49 06/10/16 08:30 06/10/16 11:02 Glucose (Fingerstick) 345mg/dL (70-99) 250mg/dL (70-99) 225mg/dL (70-99) 315mg/dL (70-99) Review of Systems Review of Systems no fever, chills, sob or chest pain Assessment and Plan Assessmemt and Plan Problems Medical Problems: (1) Congestive heart failure Status: Acute (2) NSTEMI (non-ST elevated myocardial infarction) Status: Acute Problems: Comment Review of Relevant I have reviewed the following items fede (where applicable) has been applied. Labs Laboratory Tests Test 06/08/16 17:14 06/08/16 20:47 06/09/16 05:23 06/09/16 08:20 Glucose (Fingerstick) 128mg/dL (70-99) 268mg/dL (70-99) 151mg/dL (70-99) White Blood Count 6.7x10^3/uL (4.0-11.0) Red Blood Count 2.34x10^6/uL (3.50-5.40) Hemoglobin 7.2g/dL (12.0-15.5) Hematocrit 22.0% (36.0-47.0) Mean Corpuscular Volume 94fL (79-100) Mean Corpuscular Hemoglobin 31pg (25-35) Mean Corpuscular Hemoglobin Concent 33g/dL (31-37) Red Cell Distribution Width 14.5% (11.5-14.5) Platelet Count 176x10^3/uL (140-400) Neutrophils (%) (Auto) 60% (31-73) Lymphocytes (%) (Auto) 24% (24-48) Monocytes (%) (Auto) 11% (0-9) Eosinophils (%) (Auto) 4% (0-3) Basophils (%) (Auto) 1% (0-3) Neutrophils # (Auto) 4.1x10^3uL (1.8-7.7) Lymphocytes # (Auto) 1.6x10^3/uL (1.0-4.8) Monocytes # (Auto) 0.7x10^3/uL (0.0-1.1) Eosinophils # (Auto) 0.3x10^3/uL (0.0-0.7) Basophils # (Auto) 0.1x10^3/uL (0.0-0.2) Sodium Level 140mmol/L (136-145) Potassium Level 4.3mmol/L (3.5-5.1) Chloride Level 103mmol/L (98-107) Carbon Dioxide Level 28mmol/L (21-32) Anion Gap 9 (6-14) Blood Urea Nitrogen 34mg/dL (7-20) Creatinine 4.2mg/dL (0.6-1.0) Estimated GFR (Cockcroft-Gault) 10.8 Glucose Level 138mg/dL (70-99) Calcium Level 7.8mg/dL (8.5-10.1) Phosphorus Level 4.9mg/dL (2.6-4.7) Albumin 2.1g/dL (3.4-5.0) Test 06/09/16 16:56 06/09/16 20:49 06/10/16 08:30 06/10/16 11:02 Glucose (Fingerstick) 345mg/dL (70-99) 250mg/dL (70-99) 225mg/dL (70-99) 315mg/dL (70-99) Laboratory Tests Test 06/09/16 16:56 06/09/16 20:49 06/10/16 08:30 06/10/16 11:02 Glucose (Fingerstick) 345mg/dL (70-99) 250mg/dL (70-99) 225mg/dL (70-99) 315mg/dL (70-99) Microbiology 06/04/16 Blood Culture - Final, Complete NO GROWTH AFTER 5 DAYS 06/06/16 Urine Culture - Final, Complete 06/06/16 Urine Culture Result 1 (KUSHAL) - Final, Complete Medications Current Medications Aspirin 324 mg 324 mg 1X ONCE PO Last administered on 06/01/16 12:59; Start at 12:45; Stop 06/01/16 at 12:48; Status DC Heparin Sodium/ Dextrose 500 ml @ 19 mls/hr CONT PRN IV SEE I/O RECORD Last administered on 06/02/16 14:45; Start 06/01/16 at 12:45; Stop 06/03/16 at 15:30; Status DC Heparin Sodium (Porcine) 1,950 unit PRN Q6HRS PRN IV FOR UFH LEVEL LESS THAN 0.2 Last administered on 06/01/16 13:01; Start 06/01/16 at 12:45; Stop 06/03/16 at 15:30; Status DC Ondansetron HCl (Zofran) 4 mg PRN Q8HRS PRN IV NAUSEA/VOMITING; Start 06/01/16 at 12:45; Stop 06/02/16 at 12:44; Status DC Morphine Sulfate 4 mg PRN Q2HR PRN IV PAIN Last administered on 06/01/16 14:03 ; Start 06/01/16 at 12:45; Stop 06/02/16 at 12:44; Status DC Nitroglycerin (Nitrostat) 0.4 mg PRN Q5MIN PRN SL CHEST PAIN Last administered on 06/01/16 14:03; Start 06/01/16 at 12:45; Stop 06/02/16 at 12:44; Status DC Amlodipine Besylate (Norvasc) 5 mg DAILYWLUN PO Last administered on 06/02/16 08:32; Start 06/01/16 at 14:00; Stop 06/02/16 at 16:02; Status DC Aspirin (Ecotrin) 81 mg DAILYWBKFT PO Last administered on 06/10/16 11:03; Start 06/01/16 at 14:00 Atorvastatin Calcium (Lipitor) 80 mg QHS PO Last administered on 06/09/16 21: 09; Start 06/01/16 at 21:00 Carvedilol (Coreg) 25 mg BIDWMEALS PO Last administered on 06/10/16 11:04; Start 06/01/16 at 17:00 Clopidogrel Bisulfate (Plavix) 75 mg DAILY PO Last administered on 06/01/16 14: 28; Start 06/01/16 at 14:00; Stop 06/02/16 at 08:41; Status DC Isosorbide Mononitrate (Imdur) 30 mg DAILY PO Last administered on 06/10/16 11 :03; Start 06/01/16 at 14:00 Furosemide (Lasix) 40 mg 1X ONCE IVP Last administered on 06/01/16 14:30; Start 06/01/16 at 14:00; Stop 06/01/16 at 14:23; Status DC Furosemide 40 mg 40 mg 1X ONCE IVP Last administered on 06/01/16 14:30; Start 06/01/16 at 14:30; Stop 06/01/16 at 14:38; Status DC Nitroglycerin/ Dextrose (Nitroglycerin Drip) 250 ml @ 0 mls/hr CONT PRN IV SEE I/O RECORD Last administered on 06/01/16 15:23; Start 06/01/16 at 14:30; Stop 06/02/16 at 16:02; Status DC Acetaminophen (Tylenol) 325 mg PRN Q6HRS PRN PO MILD PAIN / TEMP Last administered on 06/07/16 21:59; Start 06/01/16 at 15:00 Acetaminophen/ Hydrocodone Bitart (Lortab 5/325) 1 tab PRN Q6HRS PRN PO MODERATE TO SEVERE PAIN Last administered on 06/09/16 21:18; Start 06/01/16 at 15:00 Hydralazine HCl (Apresoline) 10 mg PRN Q4HRS PRN IVP ELEVATED BP, SEE COMMENTS ; Start 06/01/16 at 15:00 Ondansetron HCl (Zofran) 4 mg PRN Q8HRS PRN IV NAUSEA/VOMITING; Start 06/01/16 at 15:00 Albuterol Sulfate (Ventolin Neb Soln) 2.5 mg PRN Q4HRS PRN NEB SHORTNESS OF BREATH; Start 06/01/16 at 15:00 Insulin Aspart (Novolog) 0-7 UNITS TIDWMEALS SQ Last administered on 06/10/16 12:55; Start 06/01/16 at 17:00 Dextrose 12.5 gm PRN Q15MIN PRN IV SEE COMMENTS; Start 06/01/16 at 15:00 Info 1 each 1 each PRN DAILY PRN MC SEE COMMENTS Last administered on 06/03/16 09:38; Start 06/01/16 at 17:00; Stop 06/04/16 at 08:25; Status DC Magnesium Sulfate/ Dextrose (Magnesium Sulfate PREMIX 2GM) 50 ml @ 25 mls/hr PRN DAILY PRN IV for Mag < 1.7 on am labs; Start 06/02/16 at 11:15 Lidocaine/Sodium Bicarbonate (Buffered Lidocaine 1%) 3 ml 1X ONCE IJ Last administered on 06/02/16 14:03; Start 06/02/16 at 12:30; Stop 06/02/16 at 12:34; Status DC Heparin Sodium (Porcine) 2,400 unit 1X ONCE INT CAT Last administered on 14:04; Start 06/02/16 at 12:30; Stop 06/02/16 at 12:34; Status DC Heparin Sodium/ Sodium Chloride 60 unit 1X ONCE IV Last administered on 14:04; Start 06/02/16 at 12:30; Stop 06/02/16 at 12:34; Status DC Lisinopril (Prinivil) 20 mg DAILY PO Last administered on 06/06/16 09:22; Start 06/02/16 at 16:00; Stop 06/07/16 at 10:31; Status DC Hydralazine HCl 50 mg 50 mg BID PO Last administered on 06/06/16 20:55; Start 06/02/16 at 21:00; Stop 06/07/16 at 10:31; Status DC Sodium Chloride (Iv Sodium Chloride 0.9% 1000ml Bag) 1,000 ml @ 1,000 mls/hr Q1H PRN IV hypotension; Start 06/02/16 at 18:28; Stop 06/03/16 at 00:27; Status DC Diphenhydramine HCl (Benadryl) 25 mg 1X PRN PRN IV ITCHING; Start 06/02/16 at 18 :30; Stop 06/03/16 at 18:29; Status DC Diphenhydramine HCl (Benadryl) 25 mg 1X PRN PRN IV ITCHING; Start 06/02/16 at 18 :30; Stop 06/03/16 at 18:29; Status DC Sodium Chloride (Normal Saline Flush) 10 ml 1X PRN PRN IV AP catheter pack; Start 06/02/16 at 18:30; Stop 06/03/16 at 18:29; Status DC Sodium Chloride 10 ml 10 ml 1X PRN PRN IV SCRIPT COORDINATOR catheter pack; Start 06/02/16 at 18 :30; Stop 06/03/16 at 18:29; Status DC Sodium Chloride (Iv Sodium Chloride 0.9% 1000ml Bag) 1,000 ml @ 400 mls/hr Q2H30M PRN IV PATENCY; Start 06/02/16 at 18:28; Stop 06/03/16 at 06:27; Status DC Info (PHARMACY MONITORING -- do not chart) 1 each PRN DAILY PRN MC SEE COMMENTS ; Start 06/02/16 at 18:30 Info (PHARMACY MONITORING -- do not chart) 1 each PRN DAILY PRN MC SEE COMMENTS ; Start 06/03/16 at 10:30; Status UNV Info (PHARMACY MONITORING -- do not chart) 1 each PRN DAILY PRN MC SEE COMMENTS ; Start 06/03/16 at 10:30; Status Cancel Darbepoetin Malick (Aranesp) 60 mcg WEEKLYHS SQ Last administered on 06/03/16 20: 48; Start 06/03/16 at 21:00 Clopidogrel Bisulfate (Plavix) 75 mg DAILYWBKFT PO ; Start 06/04/16 at 08:00; Stop 06/04/16 at 08:00; Status DC Clopidogrel Bisulfate 75 mg 75 mg DAILYWBKFT PO Last administered on 06/04/16 08:25; Start 06/03/16 at 15:30; Stop 06/05/16 at 18:54; Status DC Sodium Chloride (Iv Sodium Chloride 0.9% 1000ml Bag) 1,000 ml @ 1,000 mls/hr Q1H PRN IV hypotension; Start 06/04/16 at 08:11; Stop 06/04/16 at 15:00; Status DC Diphenhydramine HCl (Benadryl) 25 mg 1X PRN PRN IV ITCHING; Start 06/04/16 at 08:15; Stop 06/04/16 at 15:00; Status DC Diphenhydramine HCl (Benadryl) 25 mg 1X PRN PRN IV ITCHING; Start 06/04/16 at 08:15; Stop 06/04/16 at 15:00; Status DC Sodium Chloride (Normal Saline Flush) 10 ml 1X PRN PRN IV AP catheter pack; Start 06/04/16 at 08:15; Stop 06/04/16 at 15:00; Status DC Sodium Chloride 10 ml 10 ml 1X PRN PRN IV SCRIPT COORDINATOR catheter pack; Start 06/04/16 at 08:15; Stop 06/04/16 at 15:00; Status DC Sodium Chloride (Iv Sodium Chloride 0.9% 1000ml Bag) 1,000 ml @ 400 mls/hr Q2H30M PRN IV PATENCY; Start 06/04/16 at 08:11; Stop 06/04/16 at 21:00; Status DC Info 1 each 1 each PRN DAILY PRN MC SEE COMMENTS; Start 06/04/16 at 08:15; Status UNV Magnesium Sulfate/ Dextrose 100 ml @ 100 mls/hr 1X ONCE IV Last administered on 06/04/16 12:36; Start 06/04/16 at 10:30; Stop 06/04/16 at 11:29; Status DC Ceftriaxone Sodium 1 gm/ Sodium Chloride 50 ml @ 100 mls/hr Q24H IV Last administered on 06/09/16 17:35; Start 06/06/16 at 16:00 Sodium Chloride 1,000 ml @ 1,000 mls/hr Q1H PRN IV hypotension; Start 06/07/16 at 08:48; Stop 06/07/16 at 14:47; Status DC Sodium Chloride (Iv Sodium Chloride 0.9% 1000ml Bag) 1,000 ml @ 400 mls/hr Q2H30M PRN IV PATENCY; Start 06/07/16 at 08:48; Stop 06/07/16 at 20:47; Status DC Info (PHARMACY MONITORING -- do not chart) 1 each PRN DAILY PRN MC SEE COMMENTS ; Start 06/07/16 at 09:00; Status UNV Lisinopril (Prinivil) 40 mg DAILY PO Last administered on 06/10/16 11:08; Start 06/08/16 at 09:00 Cyanocobalamin (Vitamin B-12) 1,000 mcg DAILY PO Last administered on 11:03; Start 06/07/16 at 15:30 Ferrous Sulfate (Feosol) 325 mg BID PO Last administered on 06/10/16 11:03; Start 06/07/16 at 21:00 Heparin Sodium (Porcine) 10,000 unit STK-MED ONCE .ROUTE ; Start 06/08/16 at 17: 14; Stop 06/08/16 at 17:15; Status DC Lidocaine/ Epinephrine 20 ml 20 ml STK-MED ONCE .ROUTE ; Start 06/08/16 at 17:14 ; Stop 06/08/16 at 17:15; Status DC Heparin Sodium/ Sodium Chloride 500 ml @ As Directed STK-MED ONCE .ROUTE ; Start 06/08/16 at 17:14; Stop 06/08/16 at 17:15; Status DC Fentanyl Citrate (Fentanyl 2ml Vial) 100 mcg STK-MED ONCE .ROUTE ; Start at 17:35; Stop 06/08/16 at 17:36; Status DC Midazolam HCl 2 mg 2 mg STK-MED ONCE .ROUTE ; Start 06/08/16 at 17:35; Stop at 17:36; Status DC Cefazolin Sodium (Ancef 1gm Ivpb For Omni) 50 ml @ As Directed STK-MED ONCE IV ; Start 06/08/16 at 17:36; Stop 06/08/16 at 17:37; Status DC Heparin Sodium/ Sodium Chloride 1,000 unit 1X ONCE IART Last administered on 18:04; Start 06/08/16 at 18:00; Stop 06/08/16 at 18:02; Status DC Midazolam HCl (Versed) 2 mg 1X ONCE IV Last administered on 06/08/16 18:04; Start 06/08/16 at 18:00; Stop 06/08/16 at 18:02; Status DC Fentanyl Citrate (Fentanyl 2ml Vial) 100 mcg 1X ONCE IV Last administered on 18:04; Start 06/08/16 at 18:00; Stop 06/08/16 at 18:02; Status DC Heparin Sodium (Porcine) 4300 unit 4,300 unit 1X ONCE IV Last administered on 06/08/16 18:05; Start 06/08/16 at 18:00; Stop 06/08/16 at 18:02; Status DC Cefazolin Sodium (Ancef 1gm Ivpb For Omni) 50 ml @ 100 mls/hr 1X ONCE IV Last administered on 06/08/16 18:06; Start 06/08/16 at 18:00; Stop 06/08/16 at 18:29; Status DC Lidocaine/ Epinephrine 10 ml 10 ml 1X ONCE IJ Last administered on 06/08/16 18:05; Start 06/08/16 at 18:00; Stop 06/08/16 at 18:02; Status DC Sodium Chloride 1,000 ml @ 1,000 mls/hr Q1H PRN IV hypotension; Start 06/09/16 at 14:32; Stop 06/09/16 at 20:31; Status DC Albumin Human (Albuminar) 200 ml @ 200 mls/hr 1X PRN PRN IV Hypotension; Start 06/09/16 at 14:45; Stop 06/09/16 at 20:44; Status DC Sodium Chloride (Normal Saline Flush) 10 ml 1X PRN PRN IV AP catheter pack; Start 06/09/16 at 14:45; Stop 06/10/16 at 14:44; Status DC Sodium Chloride 10 ml 10 ml 1X PRN PRN IV SCRIPT COORDINATOR catheter pack; Start 06/09/16 at 14:45; Stop 06/10/16 at 14:44; Status DC Sodium Chloride (Iv Sodium Chloride 0.9% 1000ml Bag) 1,000 ml @ 400 mls/hr Q2H30M PRN IV PATENCY; Start 06/09/16 at 14:32; Stop 06/10/16 at 02:31; Status DC Active Scripts Active Lisinopril 20 Mg Tablet 20 Mg PO QHS Isosorbide Mononitrate Er (Isosorbide Mononitrate) 30 Mg Tab.er.24h 30 Mg PO DAILY Hydralazine Hcl 50 Mg Tablet 100 Mg PO TID Carvedilol 12.5 Mg Tablet 25 Mg PO BIDWMEALS Atorvastatin Calcium 40 Mg Tablet 80 Mg PO QHS Aspirin Ec (Aspirin) 81 Mg Tablet.dr 81 Mg PO DAILYWBKFT Amlodipine Besylate 5 Mg Tablet 5 Mg PO DAILYWLUN Reported Clopidogrel (Clopidogrel Bisulfate) 75 Mg Tablet 75 Mg PO DAILY Glyburide 5 Mg Tablet 1 Tab PO BIDWMEALS Lisinopril 20 Mg Tablet 1 Tab PO DAILY Vitals/I & O Vital Sign - Last 24 Hours 06/09/16 06/09/16 06/09/16 06/09/16 17:36 19:22 21:18 22:27 Temp 99.4 99.4 Pulse 93 79 Resp 20 20 20 B/P 156/97 146/65 Pulse Ox 97 O2 Delivery Room Air Room Air 06/09/16 06/10/16 06/10/16 06/10/16 23:28 02:51 07:00 07:33 Temp 99.3 98.3 98.6 99.3 98.3 98.6 Pulse 77 72 70 Resp 18 20 18 B/P 127/48 134/58 155/59 Pulse Ox 93 95 94 O2 Delivery Room Air Room Air Room Air Room Air 06/10/16 06/10/16 06/10/16 06/10/16 11:00 11:03 11:04 11:08 Temp 98.6 98.6 Pulse 72 70 70 70 Resp 18 B/P 149/50 149/50 149/50 149/50 Pulse Ox 94 O2 Delivery Room Air 06/10/16 14:51 Temp 98.8 98.8 Pulse 67 Resp 18 B/P 134/47 Pulse Ox 96 O2 Delivery Nasal Cannula Intake and Output 06/09/16 06/09/16 06/10/16 15:00 23:00 07:00 Intake Total 120 ml 120 ml Output Total 100 ml Balance 120 ml 20 ml SALLY LLOYD MD Jun 10, 2016 15:03
[2016-06-10] MEDS: GLIMEPIRIDE 2 MG TABLET PO SCH (18:03)
[2016-06-10 19:35] VITALS: BP 130/61
[2016-06-10] MEDS: ATORVASTATIN CALCIUM 40 MG TABLET. PO SCH (20:52)
[2016-06-10] MEDS: DARBEPOETIN ALFA 60 MCG/0.3 ML DISP.SYRIN. SQ SCH (20:53)
[2016-06-10 23:05] VITALS: BP 157/44
[2016-06-11 03:10] VITALS: BP 146/46
[2016-06-11 05:29] LABS: CALCIUM 7.9 mg/dL (8.5-10.1); CREATININE 4.1 mg/dL (0.6-1.0); GFR 11.1; POTASSIUM 3.8 mmol/L (3.5-5.1)
[2016-06-11 07:30] VITALS: BP 174/65
[2016-06-11] MEDS: ASPIRIN ENTERIC COATED 81 MG TABLET.DR. PO SCH (08:00)
[2016-06-11] MEDS: LISINOPRIL 40 MG TABLET. PO SCH (09:00)
[2016-06-11] MEDS: FERROUS SULFATE 325 MG TABLET PO SCH ×2 (09:00→20:40)
[2016-06-11] MEDS: ISOSORBIDE MONONITRATE ER 30 MG TAB.ER.24H PO SCH (09:00)
[2016-06-11] MEDS ORDERED: IV NORMAL SALINE 1000ML BAG 1,000 ML IV PRN ×2 (09:18)
[2016-06-11 09:30] VITALS: BP 174/65
[2016-06-11] MEDS ORDERED: LABETALOL 20 MG/4 ML DISP.SYRIN. IVP PRN (09:30)
[2016-06-11] MEDS ORDERED: ACETAMINOPHEN 500 MG TABLET PO PRN (09:30)
[2016-06-11] MEDS ORDERED: DIALYSIS PATIENT. MC PRN (09:30)
[2016-06-11] MEDS ORDERED: 0.9 % SODIUM CHLORIDE 10 ML DISP.SYRIN. IV PRN ×2 (09:30)
[2016-06-11] MEDS ORDERED: DIPHENHYDRAMINE 50 MG/ML VIAL IV PRN ×2 (09:30)
[2016-06-11] MEDS: CARVEDILOL 12.5 MG TABLET PO SCH ×2 (09:46→17:57)
[2016-06-11] MEDS: GLIMEPIRIDE 2 MG TABLET PO SCH (09:46)
[2016-06-11] MEDS: INSULIN ASPART 300 UNITS/3 ML INSULN.PEN SQ SCH ×3 (10:06→18:02)
--- NOTE | 2016-06-11 10:41 | PDOC ---
Renal-Progress Notes Subjective Notes Notes NONE History of Present Illness Hx of present illness STABLE Vitals Vitals Vital Signs Date Time Temp Pulse Resp B/P Pulse Ox O2 Delivery O2 Flow Rate FiO2 06/11/16 09:46 70 146/46 06/11/16 09:30 98.4 18 92 Room Air 98.4 06/10/16 20:00 2.0 Weight Weight [ ] I.O. Intake and Output Intake and Output 06/11/16 07:00 Intake Total 290 ml Output Total 500 ml Balance -210 ml Intake Oral 240 ml IV Total 50 ml Output Urine Total 500 ml Labs Labs Laboratory Tests Test 06/10/16 11:02 06/10/16 17:13 06/10/16 20:44 06/11/16 03:32 Glucose (Fingerstick) 315mg/dL (70-99) 286mg/dL (70-99) 276mg/dL (70-99) Sodium Level 140mmol/L (136-145) Potassium Level 3.8mmol/L (3.5-5.1) Chloride Level 100mmol/L (98-107) Carbon Dioxide Level 33mmol/L (21-32) Anion Gap 7 (6-14) Blood Urea Nitrogen 40mg/dL (7-20) Creatinine 4.1mg/dL (0.6-1.0) Estimated GFR (Cockcroft-Gault) 11.1 Glucose Level 158mg/dL (70-99) Calcium Level 7.9mg/dL (8.5-10.1) Test 06/11/16 08:30 Glucose (Fingerstick) 182mg/dL (70-99) Micro Micro Microbiology 06/04/16 Blood Culture - Final, Complete NO GROWTH AFTER 5 DAYS 06/06/16 Urine Culture - Final, Complete 06/06/16 Urine Culture Result 1 (KUSHAL) - Final, Complete Review of Systems Constitutional: yes: alert, oriented Ears/Nose/Throat: Yes: no symptom reported Eyes: Yes: no symptom reported Pulmonary: Yes no symptom reported Cardiovascular: Yes no symptom reported Gastrointestional: Yes: constipation Genitourinary: Yes: no symptom reported Musculoskeletal: Yes: muscle stiffness Physical Exam General Appearance: no apparent distress Skin: warm Respiratory: bilateral CTA Heart: S1S2, RRR Abdomen: soft, bowel sounds present Neurology: alert, oriented Assessment Assessment IMP NEW ESRD ANEMIA S/P NEW TUNNELED HD CATHETER PLAN HD TODAY UF TO DW WILL SET UP OP HD AT [facility] WHERE HER DIALYZES D/W WITH ЕЛЕНА VIDAL MD Jun 11, 2016 10:41
--- NOTE | 2016-06-11 13:54 | PDOC ---
PROGRESS NOTES Chief Complaint Chief Complaint cc: sob A//P 1. Acute on chronic systolic congestive heart failure. improved 2. Vdz-EP-cighacw elevation myocardial infarction. 3. ZORAN with CKD 4. Ischemic cardiomyopathy. 5. Malignant hypertension, Better 6. Anemia 7. Hyperlipidemia. 8. Psoriasis. 9. CAD 10. Anemia 11. UTI not POA 12. DM2 Plan IV Rocephin, fu ucx HD per nephrology SW to arrange out pt HD BP controlled, low hemoglobin but pt declined to have blood products due to restorationist reasons. risks and benefits explained. check vitb12, fa, add iron po SSI Lipitor labs reviewed Monitor hemoglobin Prognosis guarded. talked to daughter at bedside CHECK hba1c, add glimepiride 1mg daily talked to CARD, NO intervention now given low HB, PT WILL get HD perm cath today , dc in 1-2ds when outpt HD set up History of Present Illness History of Present Illness sob better no fever no chills. no chest pain still dysuria, much better. no frequent urination Vitals Vitals Vital Signs Date Time Temp Pulse Resp B/P Pulse Ox O2 Delivery O2 Flow Rate FiO2 06/11/16 09:46 70 146/46 06/11/16 09:30 98.4 18 92 Room Air 98.4 06/10/16 20:00 2.0 Physical Exam General: Alert, Oriented X3 Heart: Regular rate, Normal S1, Normal S2, No murmurs, Gallops Lungs: Clear, Other Abdomen: Normal bowel sounds, Soft, No tenderness, No hepatosplenomegaly, No masses Extremities: No clubbing, No cyanosis, No edema, Normal pulses, No tenderness/ swelling Skin: No breakdown, No significant lesion, Other (psoriasis ) Labs LABS Laboratory Tests Test 06/10/16 17:13 06/10/16 20:44 06/11/16 03:32 06/11/16 08:30 Glucose (Fingerstick) 286mg/dL (70-99) 276mg/dL (70-99) 182mg/dL (70-99) Sodium Level 140mmol/L (136-145) Potassium Level 3.8mmol/L (3.5-5.1) Chloride Level 100mmol/L (98-107) Carbon Dioxide Level 33mmol/L (21-32) Anion Gap 7 (6-14) Blood Urea Nitrogen 40mg/dL (7-20) Creatinine 4.1mg/dL (0.6-1.0) Estimated GFR (Cockcroft-Gault) 11.1 Glucose Level 158mg/dL (70-99) Calcium Level 7.9mg/dL (8.5-10.1) Review of Systems Review of Systems no fever, chills, sob or chest pain Assessment and Plan Assessmemt and Plan Problems Medical Problems: (1) Congestive heart failure Status: Acute (2) NSTEMI (non-ST elevated myocardial infarction) Status: Acute Problems: Comment Review of Relevant I have reviewed the following items fede (where applicable) has been applied. Labs Laboratory Tests Test 06/09/16 16:56 06/09/16 20:49 06/10/16 08:30 06/10/16 11:02 Glucose (Fingerstick) 345mg/dL (70-99) 250mg/dL (70-99) 225mg/dL (70-99) 315mg/dL (70-99) Test 06/10/16 17:13 06/10/16 20:44 06/11/16 03:32 06/11/16 08:30 Glucose (Fingerstick) 286mg/dL (70-99) 276mg/dL (70-99) 182mg/dL (70-99) Sodium Level 140mmol/L (136-145) Potassium Level 3.8mmol/L (3.5-5.1) Chloride Level 100mmol/L (98-107) Carbon Dioxide Level 33mmol/L (21-32) Anion Gap 7 (6-14) Blood Urea Nitrogen 40mg/dL (7-20) Creatinine 4.1mg/dL (0.6-1.0) Estimated GFR (Cockcroft-Gault) 11.1 Glucose Level 158mg/dL (70-99) Calcium Level 7.9mg/dL (8.5-10.1) Laboratory Tests Test 06/10/16 17:13 06/10/16 20:44 06/11/16 03:32 06/11/16 08:30 Glucose (Fingerstick) 286mg/dL (70-99) 276mg/dL (70-99) 182mg/dL (70-99) Sodium Level 140mmol/L (136-145) Potassium Level 3.8mmol/L (3.5-5.1) Chloride Level 100mmol/L (98-107) Carbon Dioxide Level 33mmol/L (21-32) Anion Gap 7 (6-14) Blood Urea Nitrogen 40mg/dL (7-20) Creatinine 4.1mg/dL (0.6-1.0) Estimated GFR (Cockcroft-Gault) 11.1 Glucose Level 158mg/dL (70-99) Calcium Level 7.9mg/dL (8.5-10.1) Microbiology 06/04/16 Blood Culture - Final, Complete NO GROWTH AFTER 5 DAYS 06/06/16 Urine Culture - Final, Complete 06/06/16 Urine Culture Result 1 (KUSHAL) - Final, Complete Medications Current Medications Aspirin 324 mg 324 mg 1X ONCE PO Last administered on 06/01/16 12:59; Start at 12:45; Stop 06/01/16 at 12:48; Status DC Heparin Sodium/ Dextrose 500 ml @ 19 mls/hr CONT PRN IV SEE I/O RECORD Last administered on 06/02/16 14:45; Start 06/01/16 at 12:45; Stop 06/03/16 at 15:30; Status DC Heparin Sodium (Porcine) 1,950 unit PRN Q6HRS PRN IV FOR UFH LEVEL LESS THAN 0.2 Last administered on 06/01/16 13:01; Start 06/01/16 at 12:45; Stop 06/03/16 at 15:30; Status DC Ondansetron HCl (Zofran) 4 mg PRN Q8HRS PRN IV NAUSEA/VOMITING; Start 06/01/16 at 12:45; Stop 06/02/16 at 12:44; Status DC Morphine Sulfate 4 mg PRN Q2HR PRN IV PAIN Last administered on 06/01/16 14:03 ; Start 06/01/16 at 12:45; Stop 06/02/16 at 12:44; Status DC Nitroglycerin (Nitrostat) 0.4 mg PRN Q5MIN PRN SL CHEST PAIN Last administered on 06/01/16 14:03; Start 06/01/16 at 12:45; Stop 06/02/16 at 12:44; Status DC Amlodipine Besylate (Norvasc) 5 mg DAILYWLUN PO Last administered on 06/02/16 08:32; Start 06/01/16 at 14:00; Stop 06/02/16 at 16:02; Status DC Aspirin (Ecotrin) 81 mg DAILYWBKFT PO Last administered on 06/10/16 11:03; Start 06/01/16 at 14:00 Atorvastatin Calcium (Lipitor) 80 mg QHS PO Last administered on 06/10/16 20: 52; Start 06/01/16 at 21:00 Carvedilol (Coreg) 25 mg BIDWMEALS PO Last administered on 06/11/16 09:46; Start 06/01/16 at 17:00 Clopidogrel Bisulfate (Plavix) 75 mg DAILY PO Last administered on 06/01/16 14: 28; Start 06/01/16 at 14:00; Stop 06/02/16 at 08:41; Status DC Isosorbide Mononitrate (Imdur) 30 mg DAILY PO Last administered on 06/10/16 11 :03; Start 06/01/16 at 14:00 Furosemide (Lasix) 40 mg 1X ONCE IVP Last administered on 06/01/16 14:30; Start 06/01/16 at 14:00; Stop 06/01/16 at 14:23; Status DC Furosemide 40 mg 40 mg 1X ONCE IVP Last administered on 06/01/16 14:30; Start 06/01/16 at 14:30; Stop 06/01/16 at 14:38; Status DC Nitroglycerin/ Dextrose (Nitroglycerin Drip) 250 ml @ 0 mls/hr CONT PRN IV SEE I/O RECORD Last administered on 06/01/16 15:23; Start 06/01/16 at 14:30; Stop 06/02/16 at 16:02; Status DC Acetaminophen (Tylenol) 325 mg PRN Q6HRS PRN PO MILD PAIN / TEMP Last administered on 06/07/16 21:59; Start 06/01/16 at 15:00 Acetaminophen/ Hydrocodone Bitart (Lortab 5/325) 1 tab PRN Q6HRS PRN PO MODERATE TO SEVERE PAIN Last administered on 06/09/16 21:18; Start 06/01/16 at 15:00 Hydralazine HCl (Apresoline) 10 mg PRN Q4HRS PRN IVP ELEVATED BP, SEE COMMENTS ; Start 06/01/16 at 15:00 Ondansetron HCl (Zofran) 4 mg PRN Q8HRS PRN IV NAUSEA/VOMITING; Start 06/01/16 at 15:00 Albuterol Sulfate (Ventolin Neb Soln) 2.5 mg PRN Q4HRS PRN NEB SHORTNESS OF BREATH; Start 06/01/16 at 15:00 Insulin Aspart (Novolog) 0-7 UNITS TIDWMEALS SQ Last administered on 06/11/16 10:06; Start 06/01/16 at 17:00 Dextrose 12.5 gm PRN Q15MIN PRN IV SEE COMMENTS; Start 06/01/16 at 15:00 Info 1 each 1 each PRN DAILY PRN MC SEE COMMENTS Last administered on 06/03/16 09:38; Start 06/01/16 at 17:00; Stop 06/04/16 at 08:25; Status DC Magnesium Sulfate/ Dextrose (Magnesium Sulfate PREMIX 2GM) 50 ml @ 25 mls/hr PRN DAILY PRN IV for Mag < 1.7 on am labs; Start 06/02/16 at 11:15 Lidocaine/Sodium Bicarbonate (Buffered Lidocaine 1%) 3 ml 1X ONCE IJ Last administered on 06/02/16 14:03; Start 06/02/16 at 12:30; Stop 06/02/16 at 12:34; Status DC Heparin Sodium (Porcine) 2,400 unit 1X ONCE INT CAT Last administered on 14:04; Start 06/02/16 at 12:30; Stop 06/02/16 at 12:34; Status DC Heparin Sodium/ Sodium Chloride 60 unit 1X ONCE IV Last administered on 14:04; Start 06/02/16 at 12:30; Stop 06/02/16 at 12:34; Status DC Lisinopril (Prinivil) 20 mg DAILY PO Last administered on 06/06/16 09:22; Start 06/02/16 at 16:00; Stop 06/07/16 at 10:31; Status DC Hydralazine HCl 50 mg 50 mg BID PO Last administered on 06/06/16 20:55; Start 06/02/16 at 21:00; Stop 06/07/16 at 10:31; Status DC Sodium Chloride (Iv Sodium Chloride 0.9% 1000ml Bag) 1,000 ml @ 1,000 mls/hr Q1H PRN IV hypotension; Start 06/02/16 at 18:28; Stop 06/03/16 at 00:27; Status DC Diphenhydramine HCl (Benadryl) 25 mg 1X PRN PRN IV ITCHING; Start 06/02/16 at 18 :30; Stop 06/03/16 at 18:29; Status DC Diphenhydramine HCl (Benadryl) 25 mg 1X PRN PRN IV ITCHING; Start 06/02/16 at 18 :30; Stop 06/03/16 at 18:29; Status DC Sodium Chloride (Normal Saline Flush) 10 ml 1X PRN PRN IV AP catheter pack; Start 06/02/16 at 18:30; Stop 06/03/16 at 18:29; Status DC Sodium Chloride 10 ml 10 ml 1X PRN PRN IV LABORER CUTTING TOOL catheter pack; Start 06/02/16 at 18 :30; Stop 06/03/16 at 18:29; Status DC Sodium Chloride (Iv Sodium Chloride 0.9% 1000ml Bag) 1,000 ml @ 400 mls/hr Q2H30M PRN IV PATENCY; Start 06/02/16 at 18:28; Stop 06/03/16 at 06:27; Status DC Info (PHARMACY MONITORING -- do not chart) 1 each PRN DAILY PRN MC SEE COMMENTS ; Start 06/02/16 at 18:30 Info (PHARMACY MONITORING -- do not chart) 1 each PRN DAILY PRN MC SEE COMMENTS ; Start 06/03/16 at 10:30; Status UNV Info (PHARMACY MONITORING -- do not chart) 1 each PRN DAILY PRN MC SEE COMMENTS ; Start 06/03/16 at 10:30; Status Cancel Darbepoetin Malick (Aranesp) 60 mcg WEEKLYHS SQ Last administered on 06/10/16t 20 :53; Start 06/03/16 at 21:00 Clopidogrel Bisulfate (Plavix) 75 mg DAILYWBKFT PO ; Start 06/04/16 at 08:00; Stop 06/04/16 at 08:00; Status DC Clopidogrel Bisulfate 75 mg 75 mg DAILYWBKFT PO Last administered on 06/04/16 08:25; Start 06/03/16 at 15:30; Stop 06/05/16 at 18:54; Status DC Sodium Chloride (Iv Sodium Chloride 0.9% 1000ml Bag) 1,000 ml @ 1,000 mls/hr Q1H PRN IV hypotension; Start 06/04/16 at 08:11; Stop 06/04/16 at 15:00; Status DC Diphenhydramine HCl (Benadryl) 25 mg 1X PRN PRN IV ITCHING; Start 06/04/16 at 08:15; Stop 06/04/16 at 15:00; Status DC Diphenhydramine HCl (Benadryl) 25 mg 1X PRN PRN IV ITCHING; Start 06/04/16 at 08:15; Stop 06/04/16 at 15:00; Status DC Sodium Chloride (Normal Saline Flush) 10 ml 1X PRN PRN IV AP catheter pack; Start 06/04/16 at 08:15; Stop 06/04/16 at 15:00; Status DC Sodium Chloride 10 ml 10 ml 1X PRN PRN IV LABORER CUTTING TOOL catheter pack; Start 06/04/16 at 08:15; Stop 06/04/16 at 15:00; Status DC Sodium Chloride (Iv Sodium Chloride 0.9% 1000ml Bag) 1,000 ml @ 400 mls/hr Q2H30M PRN IV PATENCY; Start 06/04/16 at 08:11; Stop 06/04/16 at 21:00; Status DC Info 1 each 1 each PRN DAILY PRN MC SEE COMMENTS; Start 06/04/16 at 08:15; Status UNV Magnesium Sulfate/ Dextrose 100 ml @ 100 mls/hr 1X ONCE IV Last administered on 06/04/16 12:36; Start 06/04/16 at 10:30; Stop 06/04/16 at 11:29; Status DC Ceftriaxone Sodium 1 gm/ Sodium Chloride 50 ml @ 100 mls/hr Q24H IV Last administered on 06/09/16 17:35; Start 06/06/16 at 16:00; Stop 06/10/16 at 15:02 ; Status DC Sodium Chloride 1,000 ml @ 1,000 mls/hr Q1H PRN IV hypotension; Start 06/07/16 at 08:48; Stop 06/07/16 at 14:47; Status DC Sodium Chloride (Iv Sodium Chloride 0.9% 1000ml Bag) 1,000 ml @ 400 mls/hr Q2H30M PRN IV PATENCY; Start 06/07/16 at 08:48; Stop 06/07/16 at 20:47; Status DC Info (PHARMACY MONITORING -- do not chart) 1 each PRN DAILY PRN MC SEE COMMENTS ; Start 06/07/16 at 09:00; Status UNV Lisinopril (Prinivil) 40 mg DAILY PO Last administered on 06/10/16 11:08; Start 06/08/16 at 09:00 Cyanocobalamin (Vitamin B-12) 1,000 mcg DAILY PO Last administered on 11:03; Start 06/07/16 at 15:30 Ferrous Sulfate (Feosol) 325 mg BID PO Last administered on 06/10/16 20:52; Start 06/07/16 at 21:00 Heparin Sodium (Porcine) 10,000 unit STK-MED ONCE .ROUTE ; Start 06/08/16 at 17: 14; Stop 06/08/16 at 17:15; Status DC Lidocaine/ Epinephrine 20 ml 20 ml STK-MED ONCE .ROUTE ; Start 06/08/16 at 17:14 ; Stop 06/08/16 at 17:15; Status DC Heparin Sodium/ Sodium Chloride 500 ml @ As Directed STK-MED ONCE .ROUTE ; Start 06/08/16 at 17:14; Stop 06/08/16 at 17:15; Status DC Fentanyl Citrate (Fentanyl 2ml Vial) 100 mcg STK-MED ONCE .ROUTE ; Start at 17:35; Stop 06/08/16 at 17:36; Status DC Midazolam HCl 2 mg 2 mg STK-MED ONCE .ROUTE ; Start 06/08/16 at 17:35; Stop at 17:36; Status DC Cefazolin Sodium (Ancef 1gm Ivpb For Omni) 50 ml @ As Directed STK-MED ONCE IV ; Start 06/08/16 at 17:36; Stop 06/08/16 at 17:37; Status DC Heparin Sodium/ Sodium Chloride 1,000 unit 1X ONCE IART Last administered on 18:04; Start 06/08/16 at 18:00; Stop 06/08/16 at 18:02; Status DC Midazolam HCl (Versed) 2 mg 1X ONCE IV Last administered on 06/08/16 18:04; Start 06/08/16 at 18:00; Stop 06/08/16 at 18:02; Status DC Fentanyl Citrate (Fentanyl 2ml Vial) 100 mcg 1X ONCE IV Last administered on 18:04; Start 06/08/16 at 18:00; Stop 06/08/16 at 18:02; Status DC Heparin Sodium (Porcine) 4300 unit 4,300 unit 1X ONCE IV Last administered on 06/08/16 18:05; Start 06/08/16 at 18:00; Stop 06/08/16 at 18:02; Status DC Cefazolin Sodium (Ancef 1gm Ivpb For Omni) 50 ml @ 100 mls/hr 1X ONCE IV Last administered on 06/08/16 18:06; Start 06/08/16 at 18:00; Stop 06/08/16 at 18:29; Status DC Lidocaine/ Epinephrine 10 ml 10 ml 1X ONCE IJ Last administered on 06/08/16 18:05; Start 06/08/16 at 18:00; Stop 06/08/16 at 18:02; Status DC Sodium Chloride 1,000 ml @ 1,000 mls/hr Q1H PRN IV hypotension; Start 06/09/16 at 14:32; Stop 06/09/16 at 20:31; Status DC Albumin Human (Albuminar) 200 ml @ 200 mls/hr 1X PRN PRN IV Hypotension; Start 06/09/16 at 14:45; Stop 06/09/16 at 20:44; Status DC Sodium Chloride (Normal Saline Flush) 10 ml 1X PRN PRN IV AP catheter pack; Start 06/09/16 at 14:45; Stop 06/10/16 at 14:44; Status DC Sodium Chloride 10 ml 10 ml 1X PRN PRN IV LABORER CUTTING TOOL catheter pack; Start 06/09/16 at 14:45; Stop 06/10/16 at 14:44; Status DC Sodium Chloride (Iv Sodium Chloride 0.9% 1000ml Bag) 1,000 ml @ 400 mls/hr Q2H30M PRN IV PATENCY; Start 06/09/16 at 14:32; Stop 06/10/16 at 02:31; Status DC Glimepiride 1 mg 1 mg DAILY PO Last administered on 06/11/16t 09:46; Start at 17:00 Sodium Chloride (Iv Sodium Chloride 0.9% 1000ml Bag) 1,000 ml @ 1,000 mls/hr Q1H PRN IV hypotension; Start 06/11/16 at 09:18; Stop 06/11/16 at 15:17 Acetaminophen (Tylenol) 500 mg 1X PRN PRN PO MILD PAIN / TEMP; Start 06/11/16 at 09:30; Stop 06/12/16 at 09:29 Diphenhydramine HCl (Benadryl) 25 mg 1X PRN PRN IV ITCHING; Start 06/11/16 at 09:30; Stop 06/12/16 at 09:29 Diphenhydramine HCl (Benadryl) 25 mg 1X PRN PRN IV ITCHING; Start 06/11/16 at 09:30; Stop 06/12/16 at 09:29 Sodium Chloride (Normal Saline Flush) 10 ml 1X PRN PRN IV AP catheter pack; Start 06/11/16 at 09:30; Stop 06/12/16 at 09:29 Sodium Chloride (Normal Saline Flush) 10 ml 1X PRN PRN IV LABORER CUTTING TOOL catheter pack; Start 06/11/16 at 09:30; Stop 06/12/16 at 09:29 Labetalol HCl 10 mg 10 mg PRN Q1HR PRN IVP SBP > 180; Start 06/11/16 at 09:30; Stop 06/12/16 at 09:29 Sodium Chloride (Iv Sodium Chloride 0.9% 1000ml Bag) 1,000 ml @ 400 mls/hr Q2H30M PRN IV PATENCY; Start 06/11/16 at 09:18; Stop 06/11/16 at 21:17 Info (PHARMACY MONITORING -- do not chart) 1 each PRN DAILY PRN MC SEE COMMENTS ; Start 06/11/16 at 09:30; Status UNV Active Scripts Active Lisinopril 20 Mg Tablet 20 Mg PO QHS Isosorbide Mononitrate Er (Isosorbide Mononitrate) 30 Mg Tab.er.24h 30 Mg PO DAILY Hydralazine Hcl 50 Mg Tablet 100 Mg PO TID Carvedilol 12.5 Mg Tablet 25 Mg PO BIDWMEALS Atorvastatin Calcium 40 Mg Tablet 80 Mg PO QHS Aspirin Ec (Aspirin) 81 Mg Tablet.dr 81 Mg PO DAILYWBKFT Amlodipine Besylate 5 Mg Tablet 5 Mg PO DAILYWLUN Reported Clopidogrel (Clopidogrel Bisulfate) 75 Mg Tablet 75 Mg PO DAILY Glyburide 5 Mg Tablet 1 Tab PO BIDWMEALS Lisinopril 20 Mg Tablet 1 Tab PO DAILY Vitals/I & O Vital Sign - Last 24 Hours 06/10/16 06/10/16 06/10/16 06/10/16 14:51 18:04 19:35 20:00 Temp 98.8 99.2 98.8 99.2 Pulse 67 72 72 Resp 18 B/P 134/47 134/72 130/61 Pulse Ox 96 96 O2 Delivery Nasal Cannula Room Air Room Air O2 Flow Rate 2.0 06/10/16 06/11/16 06/11/16 06/11/16 23:05 03:10 07:30 09:30 Temp 98.7 98.1 98.4 98.4 98.7 98.1 98.4 98.4 Pulse 71 70 71 83 Resp B/P 157/44 146/46 174/65 174/65 Pulse Ox 94 96 92 92 O2 Delivery Room Air Room Air Room Air Room Air 06/11/16 09:46 Pulse 70 B/P 146/46 Intake and Output 06/10/16 06/10/16 06/11/16 15:00 23:00 07:00 Intake Total 240 ml 50 ml Output Total 500 ml Balance 240 ml -450 ml SALLY LLOYD MD Jun 11, 2016 13:54
[2016-06-11 15:14] VITALS: BP 155/54
[2016-06-11] MEDS: CYANOCOBALAMIN (VITAMIN B-12) 1,000 MCG TABLET. PO SCH (17:57)
[2016-06-11 19:10] VITALS: BP 169/53
[2016-06-11] MEDS: ATORVASTATIN CALCIUM 40 MG TABLET. PO SCH (20:40)
[2016-06-11 23:09] VITALS: BP 165/52
[2016-06-12 03:30] VITALS: BP 169/68
[2016-06-12 07:20] VITALS: BP 166/76
[2016-06-12] MEDS: FERROUS SULFATE 325 MG TABLET PO SCH ×2 (09:26→20:36)
[2016-06-12] MEDS: CYANOCOBALAMIN (VITAMIN B-12) 1,000 MCG TABLET. PO SCH (09:26)
[2016-06-12] MEDS: ISOSORBIDE MONONITRATE ER 30 MG TAB.ER.24H PO SCH (09:27)
[2016-06-12] MEDS: LISINOPRIL 40 MG TABLET. PO SCH (09:27)
[2016-06-12] MEDS: CARVEDILOL 12.5 MG TABLET PO SCH ×2 (09:28→17:17)
[2016-06-12] MEDS: GLIMEPIRIDE 2 MG TABLET PO SCH (09:28)
[2016-06-12] MEDS: ASPIRIN ENTERIC COATED 81 MG TABLET.DR. PO SCH (09:28)
[2016-06-12] MEDS: INSULIN ASPART 300 UNITS/3 ML INSULN.PEN SQ SCH ×3 (09:31→17:22)
[2016-06-12 10:07] VITALS: BP 171/58
[2016-06-12] MEDS: AMLODIPINE BESYLATE 5 MG TABLET PO SCH (13:25)
--- NOTE | 2016-06-12 13:48 | PDOC ---
PROGRESS NOTES Chief Complaint Chief Complaint cc: sob A//P 1. Acute on chronic systolic congestive heart failure. improved 2. [id number] elevation myocardial infarction. 3. ZORAN with CKD 4. Ischemic cardiomyopathy. 5. Malignant hypertension, Better 6. Anemia 7. Hyperlipidemia. 8. Psoriasis. 9. CAD 10. Anemia 11. UTI not POA 12. DM2 Plan dc abx HD per nephrology add amlodipine low hemoglobin but pt declined to have blood products due to amish reasons. risks and benefits explained. check vitb12, fa, add iron po SSI Lipitor labs reviewed Monitor hemoglobin Prognosis guarded. talked to daughter at bedside CHECK hba1c, increase glimepiride 2mg daily talked to CARD, NO intervention now given low HB, PT WILL get HD perm cath today , dc in 1-2ds when outpt HD set up History of Present Illness History of Present Illness sob better no fever no chills. no chest pain still dysuria, much better. no frequent urination Vitals Vitals Vital Signs Date Time Temp Pulse Resp B/P Pulse Ox O2 Delivery O2 Flow Rate FiO2 06/12/16 13:25 159/71 06/12/16 10:07 98.8 69 20 94 Room Air 98.8 Physical Exam General: Alert, Oriented X3 Heart: Regular rate, Normal S1, Normal S2, No murmurs, Gallops Lungs: Clear, Other Abdomen: Normal bowel sounds, Soft, No tenderness, No hepatosplenomegaly, No masses Extremities: No clubbing, No cyanosis, No edema, Normal pulses, No tenderness/ swelling Skin: No breakdown, No significant lesion, Other (psoriasis ) Labs LABS Laboratory Tests Test 06/11/16 17:27 06/11/16 21:02 06/12/16 07:24 06/12/16 11:17 Glucose (Fingerstick) 250mg/dL (70-99) 294mg/dL (70-99) 218mg/dL (70-99) 323mg/dL (70-99) Review of Systems Review of Systems no fever, chills, sob or chest pain Assessment and Plan Assessmemt and Plan Problems Medical Problems: (1) Congestive heart failure Status: Acute (2) NSTEMI (non-ST elevated myocardial infarction) Status: Acute Problems: Comment Review of Relevant I have reviewed the following items fede (where applicable) has been applied. Labs Laboratory Tests Test 06/10/16 17:13 06/10/16 20:44 06/11/16 03:32 06/11/16 08:30 Glucose (Fingerstick) 286mg/dL (70-99) 276mg/dL (70-99) 182mg/dL (70-99) Sodium Level 140mmol/L (136-145) Potassium Level 3.8mmol/L (3.5-5.1) Chloride Level 100mmol/L (98-107) Carbon Dioxide Level 33mmol/L (21-32) Anion Gap 7 (6-14) Blood Urea Nitrogen 40mg/dL (7-20) Creatinine 4.1mg/dL (0.6-1.0) Estimated GFR (Cockcroft-Gault) 11.1 Glucose Level 158mg/dL (70-99) Hemoglobin A1c 6.9% (4.8-5.6) Calcium Level 7.9mg/dL (8.5-10.1) Test 06/11/16 17:27 06/11/16 21:02 06/12/16 07:24 06/12/16 11:17 Glucose (Fingerstick) 250mg/dL (70-99) 294mg/dL (70-99) 218mg/dL (70-99) 323mg/dL (70-99) Laboratory Tests Test 06/11/16 17:27 06/11/16 21:02 06/12/16 07:24 06/12/16 11:17 Glucose (Fingerstick) 250mg/dL (70-99) 294mg/dL (70-99) 218mg/dL (70-99) 323mg/dL (70-99) Microbiology 06/04/16 Blood Culture - Final, Complete NO GROWTH AFTER 5 DAYS 06/06/16 Urine Culture - Final, Complete 06/06/16 Urine Culture Result 1 (KUSHAL) - Final, Complete Medications Current Medications Aspirin 324 mg 324 mg 1X ONCE PO Last administered on 06/01/16 12:59; Start at 12:45; Stop 06/01/16 at 12:48; Status DC Heparin Sodium/ Dextrose 500 ml @ 19 mls/hr CONT PRN IV SEE I/O RECORD Last administered on 06/02/16 14:45; Start 06/01/16 at 12:45; Stop 06/03/16 at 15:30; Status DC Heparin Sodium (Porcine) 1,950 unit PRN Q6HRS PRN IV FOR UFH LEVEL LESS THAN 0.2 Last administered on 06/01/16 13:01; Start 06/01/16 at 12:45; Stop 06/03/16 at 15:30; Status DC Ondansetron HCl (Zofran) 4 mg PRN Q8HRS PRN IV NAUSEA/VOMITING; Start 06/01/16 at 12:45; Stop 06/02/16 at 12:44; Status DC Morphine Sulfate 4 mg PRN Q2HR PRN IV PAIN Last administered on 06/01/16 14:03 ; Start 06/01/16 at 12:45; Stop 06/02/16 at 12:44; Status DC Nitroglycerin (Nitrostat) 0.4 mg PRN Q5MIN PRN SL CHEST PAIN Last administered on 06/01/16 14:03; Start 06/01/16 at 12:45; Stop 06/02/16 at 12:44; Status DC Amlodipine Besylate (Norvasc) 5 mg DAILYWLUN PO Last administered on 06/02/16 08:32; Start 06/01/16 at 14:00; Stop 06/02/16 at 16:02; Status DC Aspirin (Ecotrin) 81 mg DAILYWBKFT PO Last administered on 06/12/16 09:28; Start 06/01/16 at 14:00 Atorvastatin Calcium (Lipitor) 80 mg QHS PO Last administered on 06/11/16 20: 40; Start 06/01/16 at 21:00 Carvedilol (Coreg) 25 mg BIDWMEALS PO Last administered on 06/12/16 09:28; Start 06/01/16 at 17:00 Clopidogrel Bisulfate (Plavix) 75 mg DAILY PO Last administered on 06/01/16 14: 28; Start 06/01/16 at 14:00; Stop 06/02/16 at 08:41; Status DC Isosorbide Mononitrate (Imdur) 30 mg DAILY PO Last administered on 06/12/16 09 :27; Start 06/01/16 at 14:00 Furosemide (Lasix) 40 mg 1X ONCE IVP Last administered on 06/01/16 14:30; Start 06/01/16 at 14:00; Stop 06/01/16 at 14:23; Status DC Furosemide 40 mg 40 mg 1X ONCE IVP Last administered on 06/01/16 14:30; Start 06/01/16 at 14:30; Stop 06/01/16 at 14:38; Status DC Nitroglycerin/ Dextrose (Nitroglycerin Drip) 250 ml @ 0 mls/hr CONT PRN IV SEE I/O RECORD Last administered on 06/01/16 15:23; Start 06/01/16 at 14:30; Stop 06/02/16 at 16:02; Status DC Acetaminophen (Tylenol) 325 mg PRN Q6HRS PRN PO MILD PAIN / TEMP Last administered on 06/07/16 21:59; Start 06/01/16 at 15:00 Acetaminophen/ Hydrocodone Bitart (Lortab 5/325) 1 tab PRN Q6HRS PRN PO MODERATE TO SEVERE PAIN Last administered on 06/09/16 21:18; Start 06/01/16 at 15:00 Hydralazine HCl (Apresoline) 10 mg PRN Q4HRS PRN IVP ELEVATED BP, SEE COMMENTS ; Start 06/01/16 at 15:00 Ondansetron HCl (Zofran) 4 mg PRN Q8HRS PRN IV NAUSEA/VOMITING; Start 06/01/16 at 15:00 Albuterol Sulfate (Ventolin Neb Soln) 2.5 mg PRN Q4HRS PRN NEB SHORTNESS OF BREATH; Start 06/01/16 at 15:00 Insulin Aspart (Novolog) 0-7 UNITS TIDWMEALS SQ Last administered on 06/12/16 13:30; Start 06/01/16 at 17:00 Dextrose 12.5 gm PRN Q15MIN PRN IV SEE COMMENTS; Start 06/01/16 at 15:00 Info 1 each 1 each PRN DAILY PRN MC SEE COMMENTS Last administered on 06/03/16 09:38; Start 06/01/16 at 17:00; Stop 06/04/16 at 08:25; Status DC Magnesium Sulfate/ Dextrose (Magnesium Sulfate PREMIX 2GM) 50 ml @ 25 mls/hr PRN DAILY PRN IV for Mag < 1.7 on am labs; Start 06/02/16 at 11:15 Lidocaine/Sodium Bicarbonate (Buffered Lidocaine 1%) 3 ml 1X ONCE IJ Last administered on 06/02/16 14:03; Start 06/02/16 at 12:30; Stop 06/02/16 at 12:34; Status DC Heparin Sodium (Porcine) 2,400 unit 1X ONCE INT CAT Last administered on 14:04; Start 06/02/16 at 12:30; Stop 06/02/16 at 12:34; Status DC Heparin Sodium/ Sodium Chloride 60 unit 1X ONCE IV Last administered on 14:04; Start 06/02/16 at 12:30; Stop 06/02/16 at 12:34; Status DC Lisinopril (Prinivil) 20 mg DAILY PO Last administered on 06/06/16 09:22; Start 06/02/16 at 16:00; Stop 06/07/16 at 10:31; Status DC Hydralazine HCl 50 mg 50 mg BID PO Last administered on 06/06/16 20:55; Start 06/02/16 at 21:00; Stop 06/07/16 at 10:31; Status DC Sodium Chloride (Iv Sodium Chloride 0.9% 1000ml Bag) 1,000 ml @ 1,000 mls/hr Q1H PRN IV hypotension; Start 06/02/16 at 18:28; Stop 06/03/16 at 00:27; Status DC Diphenhydramine HCl (Benadryl) 25 mg 1X PRN PRN IV ITCHING; Start 06/02/16 at 18 :30; Stop 06/03/16 at 18:29; Status DC Diphenhydramine HCl (Benadryl) 25 mg 1X PRN PRN IV ITCHING; Start 06/02/16 at 18 :30; Stop 06/03/16 at 18:29; Status DC Sodium Chloride (Normal Saline Flush) 10 ml 1X PRN PRN IV AP catheter pack; Start 06/02/16 at 18:30; Stop 06/03/16 at 18:29; Status DC Sodium Chloride 10 ml 10 ml 1X PRN PRN IV [employer] catheter pack; Start 06/02/16 at 18 :30; Stop 06/03/16 at 18:29; Status DC Sodium Chloride (Iv Sodium Chloride 0.9% 1000ml Bag) 1,000 ml @ 400 mls/hr Q2H30M PRN IV PATENCY; Start 06/02/16 at 18:28; Stop 06/03/16 at 06:27; Status DC Info (PHARMACY MONITORING -- do not chart) 1 each PRN DAILY PRN MC SEE COMMENTS ; Start 06/02/16 at 18:30 Info (PHARMACY MONITORING -- do not chart) 1 each PRN DAILY PRN MC SEE COMMENTS ; Start 06/03/16 at 10:30; Status UNV Info (PHARMACY MONITORING -- do not chart) 1 each PRN DAILY PRN MC SEE COMMENTS ; Start 06/03/16 at 10:30; Status Cancel Darbepoetin Malick (Aranesp) 60 mcg WEEKLYHS SQ Last administered on 06/10/16t 20 :53; Start 06/03/16 at 21:00 Clopidogrel Bisulfate (Plavix) 75 mg DAILYWBKFT PO ; Start 06/04/16 at 08:00; Stop 06/04/16 at 08:00; Status DC Clopidogrel Bisulfate 75 mg 75 mg DAILYWBKFT PO Last administered on 06/04/16 08:25; Start 06/03/16 at 15:30; Stop 06/05/16 at 18:54; Status DC Sodium Chloride (Iv Sodium Chloride 0.9% 1000ml Bag) 1,000 ml @ 1,000 mls/hr Q1H PRN IV hypotension; Start 06/04/16 at 08:11; Stop 06/04/16 at 15:00; Status DC Diphenhydramine HCl (Benadryl) 25 mg 1X PRN PRN IV ITCHING; Start 06/04/16 at 08:15; Stop 06/04/16 at 15:00; Status DC Diphenhydramine HCl (Benadryl) 25 mg 1X PRN PRN IV ITCHING; Start 06/04/16 at 08:15; Stop 06/04/16 at 15:00; Status DC Sodium Chloride (Normal Saline Flush) 10 ml 1X PRN PRN IV AP catheter pack; Start 06/04/16 at 08:15; Stop 06/04/16 at 15:00; Status DC Sodium Chloride 10 ml 10 ml 1X PRN PRN IV [employer] catheter pack; Start 06/04/16 at 08:15; Stop 06/04/16 at 15:00; Status DC Sodium Chloride (Iv Sodium Chloride 0.9% 1000ml Bag) 1,000 ml @ 400 mls/hr Q2H30M PRN IV PATENCY; Start 06/04/16 at 08:11; Stop 06/04/16 at 21:00; Status DC Info 1 each 1 each PRN DAILY PRN MC SEE COMMENTS; Start 06/04/16 at 08:15; Status UNV Magnesium Sulfate/ Dextrose 100 ml @ 100 mls/hr 1X ONCE IV Last administered on 06/04/16 12:36; Start 06/04/16 at 10:30; Stop 06/04/16 at 11:29; Status DC Ceftriaxone Sodium 1 gm/ Sodium Chloride 50 ml @ 100 mls/hr Q24H IV Last administered on 06/09/16 17:35; Start 06/06/16 at 16:00; Stop 06/10/16 at 15:02 ; Status DC Sodium Chloride 1,000 ml @ 1,000 mls/hr Q1H PRN IV hypotension; Start 06/07/16 at 08:48; Stop 06/07/16 at 14:47; Status DC Sodium Chloride (Iv Sodium Chloride 0.9% 1000ml Bag) 1,000 ml @ 400 mls/hr Q2H30M PRN IV PATENCY; Start 06/07/16 at 08:48; Stop 06/07/16 at 20:47; Status DC Info (PHARMACY MONITORING -- do not chart) 1 each PRN DAILY PRN MC SEE COMMENTS ; Start 06/07/16 at 09:00; Status UNV Lisinopril (Prinivil) 40 mg DAILY PO Last administered on 06/12/16 09:27; Start 06/08/16 at 09:00 Cyanocobalamin (Vitamin B-12) 1,000 mcg DAILY PO Last administered on 09:26; Start 06/07/16 at 15:30 Ferrous Sulfate (Feosol) 325 mg BID PO Last administered on 06/12/16 09:26; Start 06/07/16 at 21:00 Heparin Sodium (Porcine) 10,000 unit STK-MED ONCE .ROUTE ; Start 06/08/16 at 17: 14; Stop 06/08/16 at 17:15; Status DC Lidocaine/ Epinephrine 20 ml 20 ml STK-MED ONCE .ROUTE ; Start 06/08/16 at 17:14 ; Stop 06/08/16 at 17:15; Status DC Heparin Sodium/ Sodium Chloride 500 ml @ As Directed STK-MED ONCE .ROUTE ; Start 06/08/16 at 17:14; Stop 06/08/16 at 17:15; Status DC Fentanyl Citrate (Fentanyl 2ml Vial) 100 mcg STK-MED ONCE .ROUTE ; Start at 17:35; Stop 06/08/16 at 17:36; Status DC Midazolam HCl 2 mg 2 mg STK-MED ONCE .ROUTE ; Start 06/08/16 at 17:35; Stop at 17:36; Status DC Cefazolin Sodium (Ancef 1gm Ivpb For Omni) 50 ml @ As Directed STK-MED ONCE IV ; Start 06/08/16 at 17:36; Stop 06/08/16 at 17:37; Status DC Heparin Sodium/ Sodium Chloride 1,000 unit 1X ONCE IART Last administered on 18:04; Start 06/08/16 at 18:00; Stop 06/08/16 at 18:02; Status DC Midazolam HCl (Versed) 2 mg 1X ONCE IV Last administered on 06/08/16 18:04; Start 06/08/16 at 18:00; Stop 06/08/16 at 18:02; Status DC Fentanyl Citrate (Fentanyl 2ml Vial) 100 mcg 1X ONCE IV Last administered on 18:04; Start 06/08/16 at 18:00; Stop 06/08/16 at 18:02; Status DC Heparin Sodium (Porcine) 4300 unit 4,300 unit 1X ONCE IV Last administered on 06/08/16 18:05; Start 06/08/16 at 18:00; Stop 06/08/16 at 18:02; Status DC Cefazolin Sodium (Ancef 1gm Ivpb For Omni) 50 ml @ 100 mls/hr 1X ONCE IV Last administered on 06/08/16 18:06; Start 06/08/16 at 18:00; Stop 06/08/16 at 18:29; Status DC Lidocaine/ Epinephrine 10 ml 10 ml 1X ONCE IJ Last administered on 06/08/16 18:05; Start 06/08/16 at 18:00; Stop 06/08/16 at 18:02; Status DC Sodium Chloride 1,000 ml @ 1,000 mls/hr Q1H PRN IV hypotension; Start 06/09/16 at 14:32; Stop 06/09/16 at 20:31; Status DC Albumin Human (Albuminar) 200 ml @ 200 mls/hr 1X PRN PRN IV Hypotension; Start 06/09/16 at 14:45; Stop 06/09/16 at 20:44; Status DC Sodium Chloride (Normal Saline Flush) 10 ml 1X PRN PRN IV AP catheter pack; Start 06/09/16 at 14:45; Stop 06/10/16 at 14:44; Status DC Sodium Chloride 10 ml 10 ml 1X PRN PRN IV [employer] catheter pack; Start 06/09/16 at 14:45; Stop 06/10/16 at 14:44; Status DC Sodium Chloride (Iv Sodium Chloride 0.9% 1000ml Bag) 1,000 ml @ 400 mls/hr Q2H30M PRN IV PATENCY; Start 06/09/16 at 14:32; Stop 06/10/16 at 02:31; Status DC Glimepiride 1 mg 1 mg DAILY PO Last administered on 06/12/16t 09:28; Start at 17:00 Sodium Chloride (Iv Sodium Chloride 0.9% 1000ml Bag) 1,000 ml @ 1,000 mls/hr Q1H PRN IV hypotension; Start 06/11/16 at 09:18; Stop 06/11/16 at 15:17; Status DC Acetaminophen (Tylenol) 500 mg 1X PRN PRN PO MILD PAIN / TEMP; Start 06/11/16 at 09:30; Stop 06/12/16 at 09:29; Status DC Diphenhydramine HCl (Benadryl) 25 mg 1X PRN PRN IV ITCHING; Start 06/11/16 at 09:30; Stop 06/12/16 at 09:29; Status DC Diphenhydramine HCl (Benadryl) 25 mg 1X PRN PRN IV ITCHING; Start 06/11/16 at 09:30; Stop 06/12/16 at 09:29; Status DC Sodium Chloride (Normal Saline Flush) 10 ml 1X PRN PRN IV AP catheter pack; Start 06/11/16 at 09:30; Stop 06/12/16 at 09:29; Status DC Sodium Chloride (Normal Saline Flush) 10 ml 1X PRN PRN IV [employer] catheter pack; Start 06/11/16 at 09:30; Stop 06/12/16 at 09:29; Status DC Labetalol HCl 10 mg 10 mg PRN Q1HR PRN IVP SBP > 180; Start 06/11/16 at 09:30; Stop 06/12/16 at 09:29; Status DC Sodium Chloride (Iv Sodium Chloride 0.9% 1000ml Bag) 1,000 ml @ 400 mls/hr Q2H30M PRN IV PATENCY; Start 06/11/16 at 09:18; Stop 06/11/16 at 21:17; Status DC Info (PHARMACY MONITORING -- do not chart) 1 each PRN DAILY PRN MC SEE COMMENTS ; Start 06/11/16 at 09:30; Status UNV Amlodipine Besylate (Norvasc) 5 mg DAILY PO Last administered on 06/12/16t 13: 25; Start 06/12/16 at 12:00 Active Scripts Active Lisinopril 20 Mg Tablet 20 Mg PO QHS Isosorbide Mononitrate Er (Isosorbide Mononitrate) 30 Mg Tab.er.24h 30 Mg PO DAILY Hydralazine Hcl 50 Mg Tablet 100 Mg PO TID Carvedilol 12.5 Mg Tablet 25 Mg PO BIDWMEALS Atorvastatin Calcium 40 Mg Tablet 80 Mg PO QHS Aspirin Ec (Aspirin) 81 Mg Tablet.dr 81 Mg PO DAILYWBKFT Amlodipine Besylate 5 Mg Tablet 5 Mg PO DAILYWLUN Reported Clopidogrel (Clopidogrel Bisulfate) 75 Mg Tablet 75 Mg PO DAILY Glyburide 5 Mg Tablet 1 Tab PO BIDWMEALS Lisinopril 20 Mg Tablet 1 Tab PO DAILY Vitals/I & O Vital Sign - Last 24 Hours 06/11/16 06/11/16 06/11/16 06/11/16 15:14 17:57 19:10 20:00 Temp 98.7 98.5 98.7 98.5 Pulse 66 66 69 Resp 18 B/P 155/54 155/54 169/53 Pulse Ox 94 94 O2 Delivery Room Air Room Air Room Air 06/11/16 06/12/16 06/12/16 06/12/16 23:09 03:30 07:20 08:00 Temp 98.8 97.8 98.0 98.8 97.8 98.0 Pulse 68 70 67 Resp 18 B/P 165/52 169/68 166/76 Pulse Ox 97 97 95 O2 Delivery Room Air Room Air Room Air 06/12/16 06/12/16 06/12/16 06/12/16 09:27 09:27 09:28 10:07 Temp 98.8 98.8 Pulse 67 67 67 69 Resp 20 B/P 166/76 166/76 166/76 171/58 Pulse Ox 94 O2 Delivery Room Air 06/12/16 13:25 B/P 159/71 Intake and Output 06/11/16 06/11/16 06/12/16 15:00 23:00 07:00 Intake Total 150 ml Output Total 300 ml Balance -150 ml SALLY LLOYD MD Jun 12, 2016 13:48
[2016-06-12 14:08] VITALS: BP 157/70
[2016-06-12 19:10] VITALS: BP 156/58
[2016-06-12] MEDS: ATORVASTATIN CALCIUM 40 MG TABLET. PO SCH (20:36)
[2016-06-12 23:34] VITALS: BP 166/70
[2016-06-13 03:45] VITALS: BP 168/65
[2016-06-13 07:30] VITALS: BP 158/66
[2016-06-13] MEDS: FERROUS SULFATE 325 MG TABLET PO SCH ×2 (09:21→21:04)
[2016-06-13] MEDS: ASPIRIN ENTERIC COATED 81 MG TABLET.DR. PO SCH (09:21)
[2016-06-13] MEDS: GLIMEPIRIDE 2 MG TABLET PO SCH (09:21)
[2016-06-13] MEDS: CYANOCOBALAMIN (VITAMIN B-12) 1,000 MCG TABLET. PO SCH (09:21)
[2016-06-13] MEDS: ISOSORBIDE MONONITRATE ER 30 MG TAB.ER.24H PO SCH (09:22)
[2016-06-13] MEDS: AMLODIPINE BESYLATE 5 MG TABLET PO SCH (09:22)
[2016-06-13] MEDS: CARVEDILOL 12.5 MG TABLET PO SCH ×2 (09:23→18:16)
[2016-06-13] MEDS: LISINOPRIL 40 MG TABLET. PO SCH (09:23)
[2016-06-13] MEDS: INSULIN ASPART 300 UNITS/3 ML INSULN.PEN SQ SCH ×3 (09:28→18:40)
[2016-06-13 10:20] VITALS: BP 150/64
--- NOTE | 2016-06-13 13:10 | PDOC ---
PROGRESS NOTES Chief Complaint Chief Complaint cc: sob A//P 1. Acute on chronic systolic congestive heart failure. improved 2. Zpf-TE-[id number] elevation myocardial infarction. 3. ZORAN with CKD 4. Ischemic cardiomyopathy. 5. Malignant hypertension, Better 6. Anemia 7. Hyperlipidemia. 8. Psoriasis. 9. CAD 10. Anemia 11. UTI not POA 12. DM2 Plan dc abx HD per nephrology add amlodipine low hemoglobin but pt declined to have blood products due to catholic reasons. risks and benefits explained. check vitb12, fa, add iron po SSI Lipitor talked to daughter at bedside CHECK hba1c, increase glimepiride 2mg daily, levemir 10u qhs talked to CARD, NO intervention now given low HB, PT WILL get HD perm cath today , dc when outpt HD set up History of Present Illness History of Present Illness sob better no fever no chills. no chest pain still dysuria, much better. no frequent urination Vitals Vitals Vital Signs Date Time Temp Pulse Resp B/P Pulse Ox O2 Delivery O2 Flow Rate FiO2 06/13/16 10:20 97.8 65 18 150/64 95 Room Air 97.8 Physical Exam General: Alert, Oriented X3 Heart: Regular rate, Normal S1, Normal S2, No murmurs, Gallops Lungs: Clear, Other Abdomen: Normal bowel sounds, Soft, No tenderness, No hepatosplenomegaly, No masses Extremities: No clubbing, No cyanosis, No edema, Normal pulses, No tenderness/ swelling Skin: No breakdown, No significant lesion, Other (psoriasis ) Labs LABS Laboratory Tests Test 06/12/16 16:38 06/12/16 20:41 06/13/16 07:34 06/13/16 11:52 Glucose (Fingerstick) 282mg/dL (70-99) 219mg/dL (70-99) 214mg/dL (70-99) 267mg/dL (70-99) Review of Systems Review of Systems no fever, chills, sob or chest pain Assessment and Plan Assessmemt and Plan Problems Medical Problems: (1) Congestive heart failure Status: Acute (2) NSTEMI (non-ST elevated myocardial infarction) Status: Acute Problems: Comment Review of Relevant I have reviewed the following items fede (where applicable) has been applied. Labs Laboratory Tests Test 06/11/16 17:27 06/11/16 21:02 06/12/16 07:24 06/12/16 11:17 Glucose (Fingerstick) 250mg/dL (70-99) 294mg/dL (70-99) 218mg/dL (70-99) 323mg/dL (70-99) Test 06/12/16 16:38 06/12/16 20:41 06/13/16 07:34 06/13/16 11:52 Glucose (Fingerstick) 282mg/dL (70-99) 219mg/dL (70-99) 214mg/dL (70-99) 267mg/dL (70-99) Laboratory Tests Test 06/12/16 16:38 06/12/16 20:41 06/13/16 07:34 06/13/16 11:52 Glucose (Fingerstick) 282mg/dL (70-99) 219mg/dL (70-99) 214mg/dL (70-99) 267mg/dL (70-99) Microbiology 06/04/16 Blood Culture - Final, Complete NO GROWTH AFTER 5 DAYS 06/06/16 Urine Culture - Final, Complete 06/06/16 Urine Culture Result 1 (KUSHAL) - Final, Complete Medications Current Medications Aspirin 324 mg 324 mg 1X ONCE PO Last administered on 06/01/16 12:59; Start at 12:45; Stop 06/01/16 at 12:48; Status DC Heparin Sodium/ Dextrose 500 ml @ 19 mls/hr CONT PRN IV SEE I/O RECORD Last administered on 06/02/16 14:45; Start 06/01/16 at 12:45; Stop 06/03/16 at 15:30; Status DC Heparin Sodium (Porcine) 1,950 unit PRN Q6HRS PRN IV FOR UFH LEVEL LESS THAN 0.2 Last administered on 06/01/16 13:01; Start 06/01/16 at 12:45; Stop 06/03/16 at 15:30; Status DC Ondansetron HCl (Zofran) 4 mg PRN Q8HRS PRN IV NAUSEA/VOMITING; Start 06/01/16 at 12:45; Stop 06/02/16 at 12:44; Status DC Morphine Sulfate 4 mg PRN Q2HR PRN IV PAIN Last administered on 06/01/16 14:03 ; Start 06/01/16 at 12:45; Stop 06/02/16 at 12:44; Status DC Nitroglycerin (Nitrostat) 0.4 mg PRN Q5MIN PRN SL CHEST PAIN Last administered on 06/01/16 14:03; Start 06/01/16 at 12:45; Stop 06/02/16 at 12:44; Status DC Amlodipine Besylate (Norvasc) 5 mg DAILYWLUN PO Last administered on 06/02/16 08:32; Start 06/01/16 at 14:00; Stop 06/02/16 at 16:02; Status DC Aspirin (Ecotrin) 81 mg DAILYWBKFT PO Last administered on 06/13/16 09:21; Start 06/01/16 at 14:00 Atorvastatin Calcium (Lipitor) 80 mg QHS PO Last administered on 06/12/16 20: 36; Start 06/01/16 at 21:00 Carvedilol (Coreg) 25 mg BIDWMEALS PO Last administered on 06/13/16 09:23; Start 06/01/16 at 17:00 Clopidogrel Bisulfate (Plavix) 75 mg DAILY PO Last administered on 06/01/16 14: 28; Start 06/01/16 at 14:00; Stop 06/02/16 at 08:41; Status DC Isosorbide Mononitrate (Imdur) 30 mg DAILY PO Last administered on 06/13/16 09 :22; Start 06/01/16 at 14:00 Furosemide (Lasix) 40 mg 1X ONCE IVP Last administered on 06/01/16 14:30; Start 06/01/16 at 14:00; Stop 06/01/16 at 14:23; Status DC Furosemide 40 mg 40 mg 1X ONCE IVP Last administered on 06/01/16 14:30; Start 06/01/16 at 14:30; Stop 06/01/16 at 14:38; Status DC Nitroglycerin/ Dextrose (Nitroglycerin Drip) 250 ml @ 0 mls/hr CONT PRN IV SEE I/O RECORD Last administered on 06/01/16 15:23; Start 06/01/16 at 14:30; Stop 06/02/16 at 16:02; Status DC Acetaminophen (Tylenol) 325 mg PRN Q6HRS PRN PO MILD PAIN / TEMP Last administered on 06/07/16 21:59; Start 06/01/16 at 15:00 Acetaminophen/ Hydrocodone Bitart (Lortab 5/325) 1 tab PRN Q6HRS PRN PO MODERATE TO SEVERE PAIN Last administered on 06/09/16 21:18; Start 06/01/16 at 15:00 Hydralazine HCl (Apresoline) 10 mg PRN Q4HRS PRN IVP ELEVATED BP, SEE COMMENTS ; Start 06/01/16 at 15:00 Ondansetron HCl (Zofran) 4 mg PRN Q8HRS PRN IV NAUSEA/VOMITING; Start 06/01/16 at 15:00 Albuterol Sulfate (Ventolin Neb Soln) 2.5 mg PRN Q4HRS PRN NEB SHORTNESS OF BREATH; Start 06/01/16 at 15:00 Insulin Aspart (Novolog) 0-7 UNITS TIDWMEALS SQ Last administered on 06/13/16 09:28; Start 06/01/16 at 17:00 Dextrose 12.5 gm PRN Q15MIN PRN IV SEE COMMENTS; Start 06/01/16 at 15:00 Info 1 each 1 each PRN DAILY PRN MC SEE COMMENTS Last administered on 06/03/16 09:38; Start 06/01/16 at 17:00; Stop 06/04/16 at 08:25; Status DC Magnesium Sulfate/ Dextrose (Magnesium Sulfate PREMIX 2GM) 50 ml @ 25 mls/hr PRN DAILY PRN IV for Mag < 1.7 on am labs; Start 06/02/16 at 11:15 Lidocaine/Sodium Bicarbonate (Buffered Lidocaine 1%) 3 ml 1X ONCE IJ Last administered on 06/02/16 14:03; Start 06/02/16 at 12:30; Stop 06/02/16 at 12:34; Status DC Heparin Sodium (Porcine) 2,400 unit 1X ONCE INT CAT Last administered on 14:04; Start 06/02/16 at 12:30; Stop 06/02/16 at 12:34; Status DC Heparin Sodium/ Sodium Chloride 60 unit 1X ONCE IV Last administered on 14:04; Start 06/02/16 at 12:30; Stop 06/02/16 at 12:34; Status DC Lisinopril (Prinivil) 20 mg DAILY PO Last administered on 06/06/16 09:22; Start 06/02/16 at 16:00; Stop 06/07/16 at 10:31; Status DC Hydralazine HCl 50 mg 50 mg BID PO Last administered on 06/06/16 20:55; Start 06/02/16 at 21:00; Stop 06/07/16 at 10:31; Status DC Sodium Chloride (Iv Sodium Chloride 0.9% 1000ml Bag) 1,000 ml @ 1,000 mls/hr Q1H PRN IV hypotension; Start 06/02/16 at 18:28; Stop 06/03/16 at 00:27; Status DC Diphenhydramine HCl (Benadryl) 25 mg 1X PRN PRN IV ITCHING; Start 06/02/16 at 18 :30; Stop 06/03/16 at 18:29; Status DC Diphenhydramine HCl (Benadryl) 25 mg 1X PRN PRN IV ITCHING; Start 06/02/16 at 18 :30; Stop 06/03/16 at 18:29; Status DC Sodium Chloride (Normal Saline Flush) 10 ml 1X PRN PRN IV AP catheter pack; Start 06/02/16 at 18:30; Stop 06/03/16 at 18:29; Status DC Sodium Chloride 10 ml 10 ml 1X PRN PRN IV [employer] catheter pack; Start 06/02/16 at 18 :30; Stop 06/03/16 at 18:29; Status DC Sodium Chloride (Iv Sodium Chloride 0.9% 1000ml Bag) 1,000 ml @ 400 mls/hr Q2H30M PRN IV PATENCY; Start 06/02/16 at 18:28; Stop 06/03/16 at 06:27; Status DC Info (PHARMACY MONITORING -- do not chart) 1 each PRN DAILY PRN MC SEE COMMENTS ; Start 06/02/16 at 18:30 Info (PHARMACY MONITORING -- do not chart) 1 each PRN DAILY PRN MC SEE COMMENTS ; Start 06/03/16 at 10:30; Status UNV Info (PHARMACY MONITORING -- do not chart) 1 each PRN DAILY PRN MC SEE COMMENTS ; Start 06/03/16 at 10:30; Status Cancel Darbepoetin Malick (Aranesp) 60 mcg WEEKLYHS SQ Last administered on 06/10/16 20 :53; Start 06/03/16 at 21:00 Clopidogrel Bisulfate (Plavix) 75 mg DAILYWBKFT PO ; Start 06/04/16 at 08:00; Stop 06/04/16 at 08:00; Status DC Clopidogrel Bisulfate 75 mg 75 mg DAILYWBKFT PO Last administered on 06/04/16 08:25; Start 06/03/16 at 15:30; Stop 06/05/16 at 18:54; Status DC Sodium Chloride (Iv Sodium Chloride 0.9% 1000ml Bag) 1,000 ml @ 1,000 mls/hr Q1H PRN IV hypotension; Start 06/04/16 at 08:11; Stop 06/04/16 at 15:00; Status DC Diphenhydramine HCl (Benadryl) 25 mg 1X PRN PRN IV ITCHING; Start 06/04/16 at 08:15; Stop 06/04/16 at 15:00; Status DC Diphenhydramine HCl (Benadryl) 25 mg 1X PRN PRN IV ITCHING; Start 06/04/16 at 08:15; Stop 06/04/16 at 15:00; Status DC Sodium Chloride (Normal Saline Flush) 10 ml 1X PRN PRN IV AP catheter pack; Start 06/04/16 at 08:15; Stop 06/04/16 at 15:00; Status DC Sodium Chloride 10 ml 10 ml 1X PRN PRN IV [employer] catheter pack; Start 06/04/16 at 08:15; Stop 06/04/16 at 15:00; Status DC Sodium Chloride (Iv Sodium Chloride 0.9% 1000ml Bag) 1,000 ml @ 400 mls/hr Q2H30M PRN IV PATENCY; Start 06/04/16 at 08:11; Stop 06/04/16 at 21:00; Status DC Info 1 each 1 each PRN DAILY PRN MC SEE COMMENTS; Start 06/04/16 at 08:15; Status UNV Magnesium Sulfate/ Dextrose 100 ml @ 100 mls/hr 1X ONCE IV Last administered on 06/04/16 12:36; Start 06/04/16 at 10:30; Stop 06/04/16 at 11:29; Status DC Ceftriaxone Sodium 1 gm/ Sodium Chloride 50 ml @ 100 mls/hr Q24H IV Last administered on 06/09/16 17:35; Start 06/06/16 at 16:00; Stop 06/10/16 at 15:02 ; Status DC Sodium Chloride 1,000 ml @ 1,000 mls/hr Q1H PRN IV hypotension; Start 06/07/16 at 08:48; Stop 06/07/16 at 14:47; Status DC Sodium Chloride (Iv Sodium Chloride 0.9% 1000ml Bag) 1,000 ml @ 400 mls/hr Q2H30M PRN IV PATENCY; Start 06/07/16 at 08:48; Stop 06/07/16 at 20:47; Status DC Info (PHARMACY MONITORING -- do not chart) 1 each PRN DAILY PRN MC SEE COMMENTS ; Start 06/07/16 at 09:00; Status UNV Lisinopril (Prinivil) 40 mg DAILY PO Last administered on 06/13/16 09:23; Start 06/08/16 at 09:00 Cyanocobalamin (Vitamin B-12) 1,000 mcg DAILY PO Last administered on 09:21; Start 06/07/16 at 15:30 Ferrous Sulfate (Feosol) 325 mg BID PO Last administered on 06/13/16 09:21; Start 06/07/16 at 21:00 Heparin Sodium (Porcine) 10,000 unit STK-MED ONCE .ROUTE ; Start 06/08/16 at 17: 14; Stop 06/08/16 at 17:15; Status DC Lidocaine/ Epinephrine 20 ml 20 ml STK-MED ONCE .ROUTE ; Start 06/08/16 at 17:14 ; Stop 06/08/16 at 17:15; Status DC Heparin Sodium/ Sodium Chloride 500 ml @ As Directed STK-MED ONCE .ROUTE ; Start 06/08/16 at 17:14; Stop 06/08/16 at 17:15; Status DC Fentanyl Citrate (Fentanyl 2ml Vial) 100 mcg STK-MED ONCE .ROUTE ; Start at 17:35; Stop 06/08/16 at 17:36; Status DC Midazolam HCl 2 mg 2 mg STK-MED ONCE .ROUTE ; Start 06/08/16 at 17:35; Stop at 17:36; Status DC Cefazolin Sodium (Ancef 1gm Ivpb For Omni) 50 ml @ As Directed STK-MED ONCE IV ; Start 06/08/16 at 17:36; Stop 06/08/16 at 17:37; Status DC Heparin Sodium/ Sodium Chloride 1,000 unit 1X ONCE IART Last administered on 18:04; Start 06/08/16 at 18:00; Stop 06/08/16 at 18:02; Status DC Midazolam HCl (Versed) 2 mg 1X ONCE IV Last administered on 06/08/16 18:04; Start 06/08/16 at 18:00; Stop 06/08/16 at 18:02; Status DC Fentanyl Citrate (Fentanyl 2ml Vial) 100 mcg 1X ONCE IV Last administered on 18:04; Start 06/08/16 at 18:00; Stop 06/08/16 at 18:02; Status DC Heparin Sodium (Porcine) 4300 unit 4,300 unit 1X ONCE IV Last administered on 06/08/16 18:05; Start 06/08/16 at 18:00; Stop 06/08/16 at 18:02; Status DC Cefazolin Sodium (Ancef 1gm Ivpb For Omni) 50 ml @ 100 mls/hr 1X ONCE IV Last administered on 06/08/16 18:06; Start 06/08/16 at 18:00; Stop 06/08/16 at 18:29; Status DC Lidocaine/ Epinephrine 10 ml 10 ml 1X ONCE IJ Last administered on 06/08/16 18:05; Start 06/08/16 at 18:00; Stop 06/08/16 at 18:02; Status DC Sodium Chloride 1,000 ml @ 1,000 mls/hr Q1H PRN IV hypotension; Start 06/09/16 at 14:32; Stop 06/09/16 at 20:31; Status DC Albumin Human (Albuminar) 200 ml @ 200 mls/hr 1X PRN PRN IV Hypotension; Start 06/09/16 at 14:45; Stop 06/09/16 at 20:44; Status DC Sodium Chloride (Normal Saline Flush) 10 ml 1X PRN PRN IV AP catheter pack; Start 06/09/16 at 14:45; Stop 06/10/16 at 14:44; Status DC Sodium Chloride 10 ml 10 ml 1X PRN PRN IV [employer] catheter pack; Start 06/09/16 at 14:45; Stop 06/10/16 at 14:44; Status DC Sodium Chloride (Iv Sodium Chloride 0.9% 1000ml Bag) 1,000 ml @ 400 mls/hr Q2H30M PRN IV PATENCY; Start 06/09/16 at 14:32; Stop 06/10/16 at 02:31; Status DC Glimepiride 1 mg 1 mg DAILY PO Last administered on 06/12/16t 09:28; Start at 17:00; Stop 06/12/16 at 13:46; Status DC Sodium Chloride (Iv Sodium Chloride 0.9% 1000ml Bag) 1,000 ml @ 1,000 mls/hr Q1H PRN IV hypotension; Start 06/11/16 at 09:18; Stop 06/11/16 at 15:17; Status DC Acetaminophen (Tylenol) 500 mg 1X PRN PRN PO MILD PAIN / TEMP; Start 06/11/16 at 09:30; Stop 06/12/16 at 09:29; Status DC Diphenhydramine HCl (Benadryl) 25 mg 1X PRN PRN IV ITCHING; Start 06/11/16 at 09:30; Stop 06/12/16 at 09:29; Status DC Diphenhydramine HCl (Benadryl) 25 mg 1X PRN PRN IV ITCHING; Start 06/11/16 at 09:30; Stop 06/12/16 at 09:29; Status DC Sodium Chloride (Normal Saline Flush) 10 ml 1X PRN PRN IV AP catheter pack; Start 06/11/16 at 09:30; Stop 06/12/16 at 09:29; Status DC Sodium Chloride (Normal Saline Flush) 10 ml 1X PRN PRN IV [employer] catheter pack; Start 06/11/16 at 09:30; Stop 06/12/16 at 09:29; Status DC Labetalol HCl 10 mg 10 mg PRN Q1HR PRN IVP SBP > 180; Start 06/11/16 at 09:30; Stop 06/12/16 at 09:29; Status DC Sodium Chloride (Iv Sodium Chloride 0.9% 1000ml Bag) 1,000 ml @ 400 mls/hr Q2H30M PRN IV PATENCY; Start 06/11/16 at 09:18; Stop 06/11/16 at 21:17; Status DC Info (PHARMACY MONITORING -- do not chart) 1 each PRN DAILY PRN MC SEE COMMENTS ; Start 06/11/16 at 09:30; Status UNV Amlodipine Besylate (Norvasc) 5 mg DAILY PO Last administered on 06/13/16 09: 22; Start 06/12/16 at 12:00 Glimepiride (Amaryl) 2 mg DAILY PO Last administered on 06/13/16 09:21; Start 06/13/16 at 09:00 Active Scripts Active Lisinopril 20 Mg Tablet 20 Mg PO QHS Isosorbide Mononitrate Er (Isosorbide Mononitrate) 30 Mg Tab.er.24h 30 Mg PO DAILY Hydralazine Hcl 50 Mg Tablet 100 Mg PO TID Carvedilol 12.5 Mg Tablet 25 Mg PO BIDWMEALS Atorvastatin Calcium 40 Mg Tablet 80 Mg PO QHS Aspirin Ec (Aspirin) 81 Mg Tablet.dr 81 Mg PO DAILYWBKFT Amlodipine Besylate 5 Mg Tablet 5 Mg PO DAILYWLUN Reported Clopidogrel (Clopidogrel Bisulfate) 75 Mg Tablet 75 Mg PO DAILY Glyburide 5 Mg Tablet 1 Tab PO BIDWMEALS Lisinopril 20 Mg Tablet 1 Tab PO DAILY Vitals/I & O Vital Sign - Last 24 Hours 06/12/16 06/12/16 06/12/16 06/12/16 13:25 14:08 17:17 19:10 Temp 98.7 97.5 98.7 97.5 Pulse 69 70 Resp 18 21 B/P 159/71 157/70 181/60 156/58 Pulse Ox 95 96 O2 Delivery Room Air Room Air 06/12/16 06/12/16 06/13/16 06/13/16 20:00 23:34 03:45 07:30 Temp 98.2 98.0 97.7 98.2 98.0 97.7 Pulse 72 73 60 Resp 22 18 20 B/P 166/70 168/65 158/66 Pulse Ox 94 97 94 O2 Delivery Room Air Room Air Room Air Room Air 06/13/16 06/13/16 06/13/16 06/13/16 09:22 09:22 09:23 09:23 Pulse 60 60 60 60 B/P 158/66 158/66 158/66 158/66 06/13/16 10:20 Temp 97.8 97.8 Pulse 65 Resp 18 B/P 150/64 Pulse Ox 95 O2 Delivery Room Air Intake and Output 06/12/16 06/12/16 06/13/16 15:00 23:00 07:00 Intake Total 1000 ml 50 ml Output Total 100 ml 300 ml Balance 900 ml -250 ml SALLY LLOYD MD Jun 13, 2016 13:10
[2016-06-13 15:00] VITALS: BP 161/60
[2016-06-13 19:40] VITALS: BP 165/61
[2016-06-13] MEDS: ATORVASTATIN CALCIUM 40 MG TABLET. PO SCH (21:04)
[2016-06-13] MEDS: INSULIN DETEMIR 300 UNITS/3 ML INSULN.PEN. SQ SCH (21:12)
[2016-06-13 23:00] VITALS: BP 165/60
[2016-06-14 03:00] VITALS: BP 171/63
[2016-06-14 06:16] LABS: BASO % 1 % (0-3); EOS % 4 % (0-3); HEMATOCRIT 21.6 % (36.0-47.0); HEMOGLOBIN 7.1 g/dL (12.0-15.5); LYMPH # 1.8 x10^3/uL (1.0-4.8); LYMPH % 26 % (24-48); MEAN CORPUSCULAR HEMOGLOBIN 31 pg (25-35); MEAN CORPUSCULAR HGB CONC 33 g/dL (31-37); MEAN CORPUSCULAR VOLUME 94 fL (79-100); MONO % 9 % (0-9); NEUT % 61 % (31-73); PLATELET COUNT 199 x10^3/uL (140-400); RED BLOOD COUNT 2.31 x10^6/uL (3.50-5.40); RED CELL DISTRIBUTION WIDTH 14.8 % (11.5-14.5); WHITE BLOOD COUNT 6.9 x10^3/uL (4.0-11.0)
[2016-06-14 06:30] LABS: ALBUMIN 2.2 g/dL (3.4-5.0); CALCIUM 8.1 mg/dL (8.5-10.1); CREATININE 4.1 mg/dL (0.6-1.0); GFR 11.1; POTASSIUM 4.1 mmol/L (3.5-5.1)
[2016-06-14 07:00] VITALS: BP 155/58
[2016-06-14] MEDS: FERROUS SULFATE 325 MG TABLET PO SCH ×2 (09:00→17:35)
[2016-06-14] MEDS: CYANOCOBALAMIN (VITAMIN B-12) 1,000 MCG TABLET. PO SCH (09:00)
--- NOTE | 2016-06-14 09:38 | PDOC ---
PROGRESS NOTES Chief Complaint Chief Complaint cc: sob A//P 1. Acute on chronic systolic congestive heart failure. Stable 2. Ekq-[id number] elevation myocardial infarction. 3. ZORAN with CKD on HD 4. Ischemic cardiomyopathy. 5. Malignant hypertension, Better 6. Anemia 7. Hyperlipidemia. 8. Psoriasis. 9. CAD 10. Anemia 11. UTI not POA 12. DM2 Plan HD per nephrology monitor hemoglobin BP stable SSI with idalmis NUÑEZ to find place for out HD Labs reviewed. History of Present Illness History of Present Illness doing better no fever no chills no acute events Vitals Vitals Vital Signs Date Time Temp Pulse Resp B/P Pulse Ox O2 Delivery O2 Flow Rate FiO2 06/14/16 07:00 98.1 68 17 155/58 98 Room Air 98.1 Physical Exam General: Alert, Oriented X3 Heart: Regular rate, Normal S1, Normal S2, No murmurs, Gallops Lungs: Clear, Other Abdomen: Normal bowel sounds, Soft, No tenderness, No hepatosplenomegaly, No masses Extremities: No clubbing, No cyanosis, No edema, Normal pulses, No tenderness/ swelling Skin: No breakdown, No significant lesion, Other (psoriasis ) Labs LABS Laboratory Tests Test 06/13/16 11:52 06/13/16 16:43 06/13/16 20:15 06/14/16 05:45 Glucose (Fingerstick) 267mg/dL (70-99) 227mg/dL (70-99) 330mg/dL (70-99) White Blood Count 6.9x10^3/uL (4.0-11.0) Red Blood Count 2.31x10^6/uL (3.50-5.40) Hemoglobin 7.1g/dL (12.0-15.5) Hematocrit 21.6% (36.0-47.0) Mean Corpuscular Volume 94fL (79-100) Mean Corpuscular Hemoglobin 31pg (25-35) Mean Corpuscular Hemoglobin Concent 33g/dL (31-37) Red Cell Distribution Width 14.8% (11.5-14.5) Platelet Count 199x10^3/uL (140-400) Neutrophils (%) (Auto) 61% (31-73) Lymphocytes (%) (Auto) 26% (24-48) Monocytes (%) (Auto) 9% (0-9) Eosinophils (%) (Auto) 4% (0-3) Basophils (%) (Auto) 1% (0-3) Neutrophils # (Auto) 4.2x10^3uL (1.8-7.7) Lymphocytes # (Auto) 1.8x10^3/uL (1.0-4.8) Monocytes # (Auto) 0.6x10^3/uL (0.0-1.1) Eosinophils # (Auto) 0.3x10^3/uL (0.0-0.7) Basophils # (Auto) 0.0x10^3/uL (0.0-0.2) Sodium Level 139mmol/L (136-145) Potassium Level 4.1mmol/L (3.5-5.1) Chloride Level 104mmol/L (98-107) Carbon Dioxide Level 24mmol/L (21-32) Anion Gap 11 (6-14) Blood Urea Nitrogen 53mg/dL (7-20) Creatinine 4.1mg/dL (0.6-1.0) Estimated GFR (Cockcroft-Gault) 11.1 Glucose Level 220mg/dL (70-99) Calcium Level 8.1mg/dL (8.5-10.1) Phosphorus Level 4.0mg/dL (2.6-4.7) Albumin 2.2g/dL (3.4-5.0) Test 06/14/16 07:13 Glucose (Fingerstick) 197mg/dL (70-99) Assessment and Plan Assessmemt and Plan Problems Medical Problems: (1) Congestive heart failure Status: Acute (2) NSTEMI (non-ST elevated myocardial infarction) Status: Acute Problems: Comment Review of Relevant I have reviewed the following items fede (where applicable) has been applied. Labs Laboratory Tests Test 06/12/16 11:17 06/12/16 16:38 06/12/16 20:41 06/13/16 07:34 Glucose (Fingerstick) 323mg/dL (70-99) 282mg/dL (70-99) 219mg/dL (70-99) 214mg/dL (70-99) Test 06/13/16 11:52 06/13/16 16:43 06/13/16 20:15 06/14/16 05:45 Glucose (Fingerstick) 267mg/dL (70-99) 227mg/dL (70-99) 330mg/dL (70-99) White Blood Count 6.9x10^3/uL (4.0-11.0) Red Blood Count 2.31x10^6/uL (3.50-5.40) Hemoglobin 7.1g/dL (12.0-15.5) Hematocrit 21.6% (36.0-47.0) Mean Corpuscular Volume 94fL (79-100) Mean Corpuscular Hemoglobin 31pg (25-35) Mean Corpuscular Hemoglobin Concent 33g/dL (31-37) Red Cell Distribution Width 14.8% (11.5-14.5) Platelet Count 199x10^3/uL (140-400) Neutrophils (%) (Auto) 61% (31-73) Lymphocytes (%) (Auto) 26% (24-48) Monocytes (%) (Auto) 9% (0-9) Eosinophils (%) (Auto) 4% (0-3) Basophils (%) (Auto) 1% (0-3) Neutrophils # (Auto) 4.2x10^3uL (1.8-7.7) Lymphocytes # (Auto) 1.8x10^3/uL (1.0-4.8) Monocytes # (Auto) 0.6x10^3/uL (0.0-1.1) Eosinophils # (Auto) 0.3x10^3/uL (0.0-0.7) Basophils # (Auto) 0.0x10^3/uL (0.0-0.2) Sodium Level 139mmol/L (136-145) Potassium Level 4.1mmol/L (3.5-5.1) Chloride Level 104mmol/L (98-107) Carbon Dioxide Level 24mmol/L (21-32) Anion Gap 11 (6-14) Blood Urea Nitrogen 53mg/dL (7-20) Creatinine 4.1mg/dL (0.6-1.0) Estimated GFR (Cockcroft-Gault) 11.1 Glucose Level 220mg/dL (70-99) Calcium Level 8.1mg/dL (8.5-10.1) Phosphorus Level 4.0mg/dL (2.6-4.7) Albumin 2.2g/dL (3.4-5.0) Test 06/14/16 07:13 Glucose (Fingerstick) 197mg/dL (70-99) Laboratory Tests Test 06/13/16 11:52 06/13/16 16:43 06/13/16 20:15 06/14/16 05:45 Glucose (Fingerstick) 267mg/dL (70-99) 227mg/dL (70-99) 330mg/dL (70-99) White Blood Count 6.9x10^3/uL (4.0-11.0) Red Blood Count 2.31x10^6/uL (3.50-5.40) Hemoglobin 7.1g/dL (12.0-15.5) Hematocrit 21.6% (36.0-47.0) Mean Corpuscular Volume 94fL (79-100) Mean Corpuscular Hemoglobin 31pg (25-35) Mean Corpuscular Hemoglobin Concent 33g/dL (31-37) Red Cell Distribution Width 14.8% (11.5-14.5) Platelet Count 199x10^3/uL (140-400) Neutrophils (%) (Auto) 61% (31-73) Lymphocytes (%) (Auto) 26% (24-48) Monocytes (%) (Auto) 9% (0-9) Eosinophils (%) (Auto) 4% (0-3) Basophils (%) (Auto) 1% (0-3) Neutrophils # (Auto) 4.2x10^3uL (1.8-7.7) Lymphocytes # (Auto) 1.8x10^3/uL (1.0-4.8) Monocytes # (Auto) 0.6x10^3/uL (0.0-1.1) Eosinophils # (Auto) 0.3x10^3/uL (0.0-0.7) Basophils # (Auto) 0.0x10^3/uL (0.0-0.2) Sodium Level 139mmol/L (136-145) Potassium Level 4.1mmol/L (3.5-5.1) Chloride Level 104mmol/L (98-107) Carbon Dioxide Level 24mmol/L (21-32) Anion Gap 11 (6-14) Blood Urea Nitrogen 53mg/dL (7-20) Creatinine 4.1mg/dL (0.6-1.0) Estimated GFR (Cockcroft-Gault) 11.1 Glucose Level 220mg/dL (70-99) Calcium Level 8.1mg/dL (8.5-10.1) Phosphorus Level 4.0mg/dL (2.6-4.7) Albumin 2.2g/dL (3.4-5.0) Test 06/14/16 07:13 Glucose (Fingerstick) 197mg/dL (70-99) Microbiology 06/04/16 Blood Culture - Final, Complete NO GROWTH AFTER 5 DAYS 06/06/16 Urine Culture - Final, Complete 06/06/16 Urine Culture Result 1 (KUSHAL) - Final, Complete Medications Current Medications Aspirin 324 mg 324 mg 1X ONCE PO Last administered on 06/01/16 12:59; Start at 12:45; Stop 06/01/16 at 12:48; Status DC Heparin Sodium/ Dextrose 500 ml @ 19 mls/hr CONT PRN IV SEE I/O RECORD Last administered on 06/02/16 14:45; Start 06/01/16 at 12:45; Stop 06/03/16 at 15:30; Status DC Heparin Sodium (Porcine) 1,950 unit PRN Q6HRS PRN IV FOR UFH LEVEL LESS THAN 0.2 Last administered on 06/01/16 13:01; Start 06/01/16 at 12:45; Stop 06/03/16 at 15:30; Status DC Ondansetron HCl (Zofran) 4 mg PRN Q8HRS PRN IV NAUSEA/VOMITING; Start 06/01/16 at 12:45; Stop 06/02/16 at 12:44; Status DC Morphine Sulfate 4 mg PRN Q2HR PRN IV PAIN Last administered on 06/01/16 14:03 ; Start 06/01/16 at 12:45; Stop 06/02/16 at 12:44; Status DC Nitroglycerin (Nitrostat) 0.4 mg PRN Q5MIN PRN SL CHEST PAIN Last administered on 06/01/16 14:03; Start 06/01/16 at 12:45; Stop 06/02/16 at 12:44; Status DC Amlodipine Besylate (Norvasc) 5 mg DAILYWLUN PO Last administered on 06/02/16 08:32; Start 06/01/16 at 14:00; Stop 06/02/16 at 16:02; Status DC Aspirin (Ecotrin) 81 mg DAILYWBKFT PO Last administered on 06/13/16 09:21; Start 06/01/16 at 14:00 Atorvastatin Calcium (Lipitor) 80 mg QHS PO Last administered on 06/13/16 21: 04; Start 06/01/16 at 21:00 Carvedilol (Coreg) 25 mg BIDWMEALS PO Last administered on 06/13/16 18:16; Start 06/01/16 at 17:00 Clopidogrel Bisulfate (Plavix) 75 mg DAILY PO Last administered on 06/01/16 14: 28; Start 06/01/16 at 14:00; Stop 06/02/16 at 08:41; Status DC Isosorbide Mononitrate (Imdur) 30 mg DAILY PO Last administered on 06/13/16 09 :22; Start 06/01/16 at 14:00 Furosemide (Lasix) 40 mg 1X ONCE IVP Last administered on 06/01/16 14:30; Start 06/01/16 at 14:00; Stop 06/01/16 at 14:23; Status DC Furosemide 40 mg 40 mg 1X ONCE IVP Last administered on 06/01/16 14:30; Start 06/01/16 at 14:30; Stop 06/01/16 at 14:38; Status DC Nitroglycerin/ Dextrose (Nitroglycerin Drip) 250 ml @ 0 mls/hr CONT PRN IV SEE I/O RECORD Last administered on 06/01/16 15:23; Start 06/01/16 at 14:30; Stop 06/02/16 at 16:02; Status DC Acetaminophen (Tylenol) 325 mg PRN Q6HRS PRN PO MILD PAIN / TEMP Last administered on 06/07/16 21:59; Start 06/01/16 at 15:00 Acetaminophen/ Hydrocodone Bitart (Lortab 5/325) 1 tab PRN Q6HRS PRN PO MODERATE TO SEVERE PAIN Last administered on 06/09/16 21:18; Start 06/01/16 at 15:00 Hydralazine HCl (Apresoline) 10 mg PRN Q4HRS PRN IVP ELEVATED BP, SEE COMMENTS ; Start 06/01/16 at 15:00 Ondansetron HCl (Zofran) 4 mg PRN Q8HRS PRN IV NAUSEA/VOMITING; Start 06/01/16 at 15:00 Albuterol Sulfate (Ventolin Neb Soln) 2.5 mg PRN Q4HRS PRN NEB SHORTNESS OF BREATH; Start 06/01/16 at 15:00 Insulin Aspart (Novolog) 0-7 UNITS TIDWMEALS SQ Last administered on 06/13/16 18:40; Start 06/01/16 at 17:00 Dextrose 12.5 gm PRN Q15MIN PRN IV SEE COMMENTS; Start 06/01/16 at 15:00 Info 1 each 1 each PRN DAILY PRN MC SEE COMMENTS Last administered on 06/03/16 09:38; Start 06/01/16 at 17:00; Stop 06/04/16 at 08:25; Status DC Magnesium Sulfate/ Dextrose (Magnesium Sulfate PREMIX 2GM) 50 ml @ 25 mls/hr PRN DAILY PRN IV for Mag < 1.7 on am labs; Start 06/02/16 at 11:15 Lidocaine/Sodium Bicarbonate (Buffered Lidocaine 1%) 3 ml 1X ONCE IJ Last administered on 06/02/16 14:03; Start 06/02/16 at 12:30; Stop 06/02/16 at 12:34; Status DC Heparin Sodium (Porcine) 2,400 unit 1X ONCE INT CAT Last administered on 14:04; Start 06/02/16 at 12:30; Stop 06/02/16 at 12:34; Status DC Heparin Sodium/ Sodium Chloride 60 unit 1X ONCE IV Last administered on 14:04; Start 06/02/16 at 12:30; Stop 06/02/16 at 12:34; Status DC Lisinopril (Prinivil) 20 mg DAILY PO Last administered on 06/06/16 09:22; Start 06/02/16 at 16:00; Stop 06/07/16 at 10:31; Status DC Hydralazine HCl 50 mg 50 mg BID PO Last administered on 06/06/16 20:55; Start 06/02/16 at 21:00; Stop 06/07/16 at 10:31; Status DC Sodium Chloride (Iv Sodium Chloride 0.9% 1000ml Bag) 1,000 ml @ 1,000 mls/hr Q1H PRN IV hypotension; Start 06/02/16 at 18:28; Stop 06/03/16 at 00:27; Status DC Diphenhydramine HCl (Benadryl) 25 mg 1X PRN PRN IV ITCHING; Start 06/02/16 at 18 :30; Stop 06/03/16 at 18:29; Status DC Diphenhydramine HCl (Benadryl) 25 mg 1X PRN PRN IV ITCHING; Start 06/02/16 at 18 :30; Stop 06/03/16 at 18:29; Status DC Sodium Chloride (Normal Saline Flush) 10 ml 1X PRN PRN IV AP catheter pack; Start 06/02/16 at 18:30; Stop 06/03/16 at 18:29; Status DC Sodium Chloride 10 ml 10 ml 1X PRN PRN IV ANTIQUE COLLECTOR catheter pack; Start 06/02/16 at 18 :30; Stop 06/03/16 at 18:29; Status DC Sodium Chloride (Iv Sodium Chloride 0.9% 1000ml Bag) 1,000 ml @ 400 mls/hr Q2H30M PRN IV PATENCY; Start 06/02/16 at 18:28; Stop 06/03/16 at 06:27; Status DC Info (PHARMACY MONITORING -- do not chart) 1 each PRN DAILY PRN MC SEE COMMENTS ; Start 06/02/16 at 18:30 Info (PHARMACY MONITORING -- do not chart) 1 each PRN DAILY PRN MC SEE COMMENTS ; Start 06/03/16 at 10:30; Status UNV Info (PHARMACY MONITORING -- do not chart) 1 each PRN DAILY PRN MC SEE COMMENTS ; Start 06/03/16 at 10:30; Status Cancel Darbepoetin Malick (Aranesp) 60 mcg WEEKLYHS SQ Last administered on 06/10/16t 20 :53; Start 06/03/16 at 21:00 Clopidogrel Bisulfate (Plavix) 75 mg DAILYWBKFT PO ; Start 06/04/16 at 08:00; Stop 06/04/16 at 08:00; Status DC Clopidogrel Bisulfate 75 mg 75 mg DAILYWBKFT PO Last administered on 06/04/16 08:25; Start 06/03/16 at 15:30; Stop 06/05/16 at 18:54; Status DC Sodium Chloride (Iv Sodium Chloride 0.9% 1000ml Bag) 1,000 ml @ 1,000 mls/hr Q1H PRN IV hypotension; Start 06/04/16 at 08:11; Stop 06/04/16 at 15:00; Status DC Diphenhydramine HCl (Benadryl) 25 mg 1X PRN PRN IV ITCHING; Start 06/04/16 at 08:15; Stop 06/04/16 at 15:00; Status DC Diphenhydramine HCl (Benadryl) 25 mg 1X PRN PRN IV ITCHING; Start 06/04/16 at 08:15; Stop 06/04/16 at 15:00; Status DC Sodium Chloride (Normal Saline Flush) 10 ml 1X PRN PRN IV AP catheter pack; Start 06/04/16 at 08:15; Stop 06/04/16 at 15:00; Status DC Sodium Chloride 10 ml 10 ml 1X PRN PRN IV ANTIQUE COLLECTOR catheter pack; Start 06/04/16 at 08:15; Stop 06/04/16 at 15:00; Status DC Sodium Chloride (Iv Sodium Chloride 0.9% 1000ml Bag) 1,000 ml @ 400 mls/hr Q2H30M PRN IV PATENCY; Start 06/04/16 at 08:11; Stop 06/04/16 at 21:00; Status DC Info 1 each 1 each PRN DAILY PRN MC SEE COMMENTS; Start 06/04/16 at 08:15; Status UNV Magnesium Sulfate/ Dextrose 100 ml @ 100 mls/hr 1X ONCE IV Last administered on 06/04/16 12:36; Start 06/04/16 at 10:30; Stop 06/04/16 at 11:29; Status DC Ceftriaxone Sodium 1 gm/ Sodium Chloride 50 ml @ 100 mls/hr Q24H IV Last administered on 06/09/16 17:35; Start 06/06/16 at 16:00; Stop 06/10/16 at 15:02 ; Status DC Sodium Chloride 1,000 ml @ 1,000 mls/hr Q1H PRN IV hypotension; Start 06/07/16 at 08:48; Stop 06/07/16 at 14:47; Status DC Sodium Chloride (Iv Sodium Chloride 0.9% 1000ml Bag) 1,000 ml @ 400 mls/hr Q2H30M PRN IV PATENCY; Start 06/07/16 at 08:48; Stop 06/07/16 at 20:47; Status DC Info (PHARMACY MONITORING -- do not chart) 1 each PRN DAILY PRN MC SEE COMMENTS ; Start 06/07/16 at 09:00; Status UNV Lisinopril (Prinivil) 40 mg DAILY PO Last administered on 06/13/16 09:23; Start 06/08/16 at 09:00 Cyanocobalamin (Vitamin B-12) 1,000 mcg DAILY PO Last administered on 09:21; Start 06/07/16 at 15:30 Ferrous Sulfate (Feosol) 325 mg BID PO Last administered on 06/13/16 21:04; Start 06/07/16 at 21:00 Heparin Sodium (Porcine) 10,000 unit STK-MED ONCE .ROUTE ; Start 06/08/16 at 17: 14; Stop 06/08/16 at 17:15; Status DC Lidocaine/ Epinephrine 20 ml 20 ml STK-MED ONCE .ROUTE ; Start 06/08/16 at 17:14 ; Stop 06/08/16 at 17:15; Status DC Heparin Sodium/ Sodium Chloride 500 ml @ As Directed STK-MED ONCE .ROUTE ; Start 06/08/16 at 17:14; Stop 06/08/16 at 17:15; Status DC Fentanyl Citrate (Fentanyl 2ml Vial) 100 mcg STK-MED ONCE .ROUTE ; Start at 17:35; Stop 06/08/16 at 17:36; Status DC Midazolam HCl 2 mg 2 mg STK-MED ONCE .ROUTE ; Start 06/08/16 at 17:35; Stop at 17:36; Status DC Cefazolin Sodium (Ancef 1gm Ivpb For Omni) 50 ml @ As Directed STK-MED ONCE IV ; Start 06/08/16 at 17:36; Stop 06/08/16 at 17:37; Status DC Heparin Sodium/ Sodium Chloride 1,000 unit 1X ONCE IART Last administered on 18:04; Start 06/08/16 at 18:00; Stop 06/08/16 at 18:02; Status DC Midazolam HCl (Versed) 2 mg 1X ONCE IV Last administered on 06/08/16 18:04; Start 06/08/16 at 18:00; Stop 06/08/16 at 18:02; Status DC Fentanyl Citrate (Fentanyl 2ml Vial) 100 mcg 1X ONCE IV Last administered on 18:04; Start 06/08/16 at 18:00; Stop 06/08/16 at 18:02; Status DC Heparin Sodium (Porcine) 4300 unit 4,300 unit 1X ONCE IV Last administered on 06/08/16 18:05; Start 06/08/16 at 18:00; Stop 06/08/16 at 18:02; Status DC Cefazolin Sodium (Ancef 1gm Ivpb For Omni) 50 ml @ 100 mls/hr 1X ONCE IV Last administered on 06/08/16 18:06; Start 06/08/16 at 18:00; Stop 06/08/16 at 18:29; Status DC Lidocaine/ Epinephrine 10 ml 10 ml 1X ONCE IJ Last administered on 06/08/16 18:05; Start 06/08/16 at 18:00; Stop 06/08/16 at 18:02; Status DC Sodium Chloride 1,000 ml @ 1,000 mls/hr Q1H PRN IV hypotension; Start 06/09/16 at 14:32; Stop 06/09/16 at 20:31; Status DC Albumin Human (Albuminar) 200 ml @ 200 mls/hr 1X PRN PRN IV Hypotension; Start 06/09/16 at 14:45; Stop 06/09/16 at 20:44; Status DC Sodium Chloride (Normal Saline Flush) 10 ml 1X PRN PRN IV AP catheter pack; Start 06/09/16 at 14:45; Stop 06/10/16 at 14:44; Status DC Sodium Chloride 10 ml 10 ml 1X PRN PRN IV ANTIQUE COLLECTOR catheter pack; Start 06/09/16 at 14:45; Stop 06/10/16 at 14:44; Status DC Sodium Chloride (Iv Sodium Chloride 0.9% 1000ml Bag) 1,000 ml @ 400 mls/hr Q2H30M PRN IV PATENCY; Start 06/09/16 at 14:32; Stop 06/10/16 at 02:31; Status DC Glimepiride 1 mg 1 mg DAILY PO Last administered on 06/12/16t 09:28; Start at 17:00; Stop 06/12/16 at 13:46; Status DC Sodium Chloride (Iv Sodium Chloride 0.9% 1000ml Bag) 1,000 ml @ 1,000 mls/hr Q1H PRN IV hypotension; Start 06/11/16 at 09:18; Stop 06/11/16 at 15:17; Status DC Acetaminophen (Tylenol) 500 mg 1X PRN PRN PO MILD PAIN / TEMP; Start 06/11/16 at 09:30; Stop 06/12/16 at 09:29; Status DC Diphenhydramine HCl (Benadryl) 25 mg 1X PRN PRN IV ITCHING; Start 06/11/16 at 09:30; Stop 06/12/16 at 09:29; Status DC Diphenhydramine HCl (Benadryl) 25 mg 1X PRN PRN IV ITCHING; Start 06/11/16 at 09:30; Stop 06/12/16 at 09:29; Status DC Sodium Chloride (Normal Saline Flush) 10 ml 1X PRN PRN IV AP catheter pack; Start 06/11/16 at 09:30; Stop 06/12/16 at 09:29; Status DC Sodium Chloride (Normal Saline Flush) 10 ml 1X PRN PRN IV ANTIQUE COLLECTOR catheter pack; Start 06/11/16 at 09:30; Stop 06/12/16 at 09:29; Status DC Labetalol HCl 10 mg 10 mg PRN Q1HR PRN IVP SBP > 180; Start 06/11/16 at 09:30; Stop 06/12/16 at 09:29; Status DC Sodium Chloride (Iv Sodium Chloride 0.9% 1000ml Bag) 1,000 ml @ 400 mls/hr Q2H30M PRN IV PATENCY; Start 06/11/16 at 09:18; Stop 06/11/16 at 21:17; Status DC Info (PHARMACY MONITORING -- do not chart) 1 each PRN DAILY PRN MC SEE COMMENTS ; Start 06/11/16 at 09:30; Status UNV Amlodipine Besylate (Norvasc) 5 mg DAILY PO Last administered on 06/13/16 09: 22; Start 06/12/16 at 12:00 Glimepiride (Amaryl) 2 mg DAILY PO Last administered on 06/13/16 09:21; Start 06/13/16 at 09:00 Insulin Detemir (Levemir) 10 units QHS SQ Last administered on 06/13/16 21:12 ; Start 06/13/16 at 21:00 Active Scripts Active Lisinopril 20 Mg Tablet 20 Mg PO QHS Isosorbide Mononitrate Er (Isosorbide Mononitrate) 30 Mg Tab.er.24h 30 Mg PO DAILY Hydralazine Hcl 50 Mg Tablet 100 Mg PO TID Carvedilol 12.5 Mg Tablet 25 Mg PO BIDWMEALS Atorvastatin Calcium 40 Mg Tablet 80 Mg PO QHS Aspirin Ec (Aspirin) 81 Mg Tablet.dr 81 Mg PO DAILYWBKFT Amlodipine Besylate 5 Mg Tablet 5 Mg PO DAILYWLUN Reported Clopidogrel (Clopidogrel Bisulfate) 75 Mg Tablet 75 Mg PO DAILY Glyburide 5 Mg Tablet 1 Tab PO BIDWMEALS Lisinopril 20 Mg Tablet 1 Tab PO DAILY Vitals/I & O Vital Sign - Last 24 Hours 06/13/16 06/13/16 06/13/16 06/13/16 10:20 15:00 18:16 19:40 Temp 97.8 98.1 98.3 97.8 98.1 98.3 Pulse 65 67 67 74 Resp B/P 150/64 161/60 161/60 165/61 Pulse Ox 95 95 98 O2 Delivery Room Air Room Air Room Air 06/13/16 06/13/16 06/14/16 06/14/16 20:00 23:00 03:00 07:00 Temp 98.1 98.4 98.1 98.1 98.4 98.1 Pulse 67 69 68 Resp B/P 165/60 171/63 155/58 Pulse Ox 95 97 98 O2 Delivery Room Air Room Air Room Air Room Air Intake and Output 06/13/16 06/13/16 06/14/16 15:00 23:00 07:00 Intake Total 600 ml Output Total 900 ml 251 ml Balance -900 ml 349 ml SELMA LALA MD Jun 14, 2016 09:38
[2016-06-14 11:00] VITALS: BP 185/79
[2016-06-14] MEDS: CARVEDILOL 12.5 MG TABLET PO SCH ×2 (11:14→17:34)
[2016-06-14] MEDS: INSULIN ASPART 300 UNITS/3 ML INSULN.PEN SQ SCH ×4 (11:34→17:43)
[2016-06-14] MEDS ORDERED: IV NORMAL SALINE 1000ML BAG 1,000 ML IV PRN (13:02)
[2016-06-14] MEDS ORDERED: 0.9 % SODIUM CHLORIDE 10 ML DISP.SYRIN. IV PRN ×2 (13:15)
[2016-06-14] MEDS ORDERED: DIALYSIS PATIENT. MC PRN ×2 (13:15)
--- NOTE | 2016-06-14 13:59 | PDOC ---
Dialysis Progress Note Dialysis Note Dialysis Note Seen on Hemodialysis, tolerating treatment Okay so far Vitals on Hemodialysis at time of my visit: 176/71 70 16 afeb General Appearance: Awake: Alert Oriented x 2-3 Neck: No JVD or JVP Chest: CTA Dionte Heart: S1 S2 Abdomen - Soft NTND Extremities - No Edema ESRD: Dialysis as below F 180 NR 3.0 Hrs 3 K 2.5 Ca 140 Na 35 HC03 Qb 350 + Qd 500+ Heparin on gtt Units Uf 0-1 Kgs or to dry weight as tolerated May give 25-50 gms of 25% Albumin or NS if needed to maintain Hemodynamic stability Treatment plan reviewed and discussed with inventory management specialist Vitals Vital Signs Vital Signs Date Time Temp Pulse Resp B/P Pulse Ox O2 Delivery O2 Flow Rate FiO2 06/14/16 11:16 70 185/79 06/14/16 11:00 97.9 18 97 Room Air 97.9 06/10/16 20:00 2.0 Labs Last Labs Laboratory Tests Test 06/12/16 16:38 06/12/16 20:41 06/13/16 07:34 06/13/16 11:52 Glucose (Fingerstick) 282mg/dL (70-99) 219mg/dL (70-99) 214mg/dL (70-99) 267mg/dL (70-99) Test 06/13/16 16:43 06/13/16 20:15 06/14/16 05:45 06/14/16 07:13 Glucose (Fingerstick) 227mg/dL (70-99) 330mg/dL (70-99) 197mg/dL (70-99) White Blood Count 6.9x10^3/uL (4.0-11.0) Red Blood Count 2.31x10^6/uL (3.50-5.40) Hemoglobin 7.1g/dL (12.0-15.5) Hematocrit 21.6% (36.0-47.0) Mean Corpuscular Volume 94fL (79-100) Mean Corpuscular Hemoglobin 31pg (25-35) Mean Corpuscular Hemoglobin Concent 33g/dL (31-37) Red Cell Distribution Width 14.8% (11.5-14.5) Platelet Count 199x10^3/uL (140-400) Neutrophils (%) (Auto) 61% (31-73) Lymphocytes (%) (Auto) 26% (24-48) Monocytes (%) (Auto) 9% (0-9) Eosinophils (%) (Auto) 4% (0-3) Basophils (%) (Auto) 1% (0-3) Neutrophils # (Auto) 4.2x10^3uL (1.8-7.7) Lymphocytes # (Auto) 1.8x10^3/uL (1.0-4.8) Monocytes # (Auto) 0.6x10^3/uL (0.0-1.1) Eosinophils # (Auto) 0.3x10^3/uL (0.0-0.7) Basophils # (Auto) 0.0x10^3/uL (0.0-0.2) Sodium Level 139mmol/L (136-145) Potassium Level 4.1mmol/L (3.5-5.1) Chloride Level 104mmol/L (98-107) Carbon Dioxide Level 24mmol/L (21-32) Anion Gap 11 (6-14) Blood Urea Nitrogen 53mg/dL (7-20) Creatinine 4.1mg/dL (0.6-1.0) Estimated GFR (Cockcroft-Gault) 11.1 Glucose Level 220mg/dL (70-99) Calcium Level 8.1mg/dL (8.5-10.1) Phosphorus Level 4.0mg/dL (2.6-4.7) Albumin 2.2g/dL (3.4-5.0) Test 06/14/16 11:38 06/14/16 13:08 Glucose (Fingerstick) 268mg/dL (70-99) 235mg/dL (70-99) Laboratory Tests Test 06/13/16 16:43 06/13/16 20:15 06/14/16 05:45 06/14/16 07:13 Glucose (Fingerstick) 227mg/dL (70-99) 330mg/dL (70-99) 197mg/dL (70-99) White Blood Count 6.9x10^3/uL (4.0-11.0) Red Blood Count 2.31x10^6/uL (3.50-5.40) Hemoglobin 7.1g/dL (12.0-15.5) Hematocrit 21.6% (36.0-47.0) Mean Corpuscular Volume 94fL (79-100) Mean Corpuscular Hemoglobin 31pg (25-35) Mean Corpuscular Hemoglobin Concent 33g/dL (31-37) Red Cell Distribution Width 14.8% (11.5-14.5) Platelet Count 199x10^3/uL (140-400) Neutrophils (%) (Auto) 61% (31-73) Lymphocytes (%) (Auto) 26% (24-48) Monocytes (%) (Auto) 9% (0-9) Eosinophils (%) (Auto) 4% (0-3) Basophils (%) (Auto) 1% (0-3) Neutrophils # (Auto) 4.2x10^3uL (1.8-7.7) Lymphocytes # (Auto) 1.8x10^3/uL (1.0-4.8) Monocytes # (Auto) 0.6x10^3/uL (0.0-1.1) Eosinophils # (Auto) 0.3x10^3/uL (0.0-0.7) Basophils # (Auto) 0.0x10^3/uL (0.0-0.2) Sodium Level 139mmol/L (136-145) Potassium Level 4.1mmol/L (3.5-5.1) Chloride Level 104mmol/L (98-107) Carbon Dioxide Level 24mmol/L (21-32) Anion Gap 11 (6-14) Blood Urea Nitrogen 53mg/dL (7-20) Creatinine 4.1mg/dL (0.6-1.0) Estimated GFR (Cockcroft-Gault) 11.1 Glucose Level 220mg/dL (70-99) Calcium Level 8.1mg/dL (8.5-10.1) Phosphorus Level 4.0mg/dL (2.6-4.7) Albumin 2.2g/dL (3.4-5.0) Test 06/14/16 11:38 06/14/16 13:08 Glucose (Fingerstick) 268mg/dL (70-99) 235mg/dL (70-99) Assessment Assessment Problems Medical Problems: (1) Congestive heart failure Status: Acute (2) NSTEMI (non-ST elevated myocardial infarction) Status: Acute Problems: Plan Plan of Care Problems Medical Problems: (1) Congestive heart failure Status: Acute (2) NSTEMI (non-ST elevated myocardial infarction) Status: Acute PALMA HERNANDEZ MD Jun 14, 2016 13:59
[2016-06-14] MEDS: LISINOPRIL 40 MG TABLET. PO SCH (17:34)
[2016-06-14] MEDS: ISOSORBIDE MONONITRATE ER 30 MG TAB.ER.24H PO SCH (17:35)
[2016-06-14] MEDS: ASPIRIN ENTERIC COATED 81 MG TABLET.DR. PO SCH (17:35)
[2016-06-14] MEDS: GLIMEPIRIDE 2 MG TABLET PO SCH (17:35)
[2016-06-14] MEDS: AMLODIPINE BESYLATE 5 MG TABLET PO SCH (17:36)
[2016-06-14 19:50] VITALS: BP 172/61
[2016-06-14] MEDS: ATORVASTATIN CALCIUM 40 MG TABLET. PO SCH (20:52)
[2016-06-14] MEDS: INSULIN DETEMIR 300 UNITS/3 ML INSULN.PEN. SQ SCH (20:56)
[2016-06-14 22:55] VITALS: BP 188/69
[2016-06-15 03:00] VITALS: BP 154/61
[2016-06-15 07:40] VITALS: BP 156/62
[2016-06-15] MEDS: ASPIRIN ENTERIC COATED 81 MG TABLET.DR. PO SCH (09:51)
[2016-06-15] MEDS: GLIMEPIRIDE 2 MG TABLET PO SCH (09:52)
[2016-06-15] MEDS: CYANOCOBALAMIN (VITAMIN B-12) 1,000 MCG TABLET. PO SCH (09:53)
[2016-06-15] MEDS: AMLODIPINE BESYLATE 5 MG TABLET PO SCH (09:54)
[2016-06-15] MEDS: LISINOPRIL 40 MG TABLET. PO SCH (09:55)
[2016-06-15] MEDS: ISOSORBIDE MONONITRATE ER 30 MG TAB.ER.24H PO SCH (09:56)
[2016-06-15] MEDS: CARVEDILOL 12.5 MG TABLET PO SCH ×2 (09:57→17:09)
[2016-06-15] MEDS: FERROUS SULFATE 325 MG TABLET PO SCH ×2 (09:58→21:41)
[2016-06-15] MEDS: INSULIN ASPART 300 UNITS/3 ML INSULN.PEN SQ SCH ×3 (10:06→17:12)
--- NOTE | 2016-06-15 10:20 | PDOC ---
PROGRESS NOTES Chief Complaint Chief Complaint cc: sob A//P 1. Acute on chronic systolic congestive heart failure. Stable 2. [id number] elevation myocardial infarction. 3. ZORAN with CKD on HD 4. Ischemic cardiomyopathy. 5. Malignant hypertension, Better 6. Anemia 7. Hyperlipidemia. 8. Psoriasis. 9. CAD 10. Anemia 11. UTI not POA 12. DM2 Plan HD per nephrology monitor hemoglobin BP stable SSI with Haim NUÑEZ to find place for out HD, d/w disease case manager Labs reviewed. History of Present Illness History of Present Illness doing better no fever no chills no acute events Vitals Vitals Vital Signs Date Time Temp Pulse Resp B/P Pulse Ox O2 Delivery O2 Flow Rate FiO2 06/15/16 09:57 68 169/74 06/15/16 08:13 Room Air 06/15/16 07:40 98.4 18 95 98.4 Physical Exam General: Alert, Oriented X3 Heart: Regular rate, Normal S1, Normal S2, No murmurs, Gallops Lungs: Clear, Other Abdomen: Normal bowel sounds, Soft, No tenderness, No hepatosplenomegaly, No masses Extremities: No clubbing, No cyanosis, No edema, Normal pulses, No tenderness/ swelling Skin: No breakdown, No significant lesion, Other (psoriasis ) Labs LABS Laboratory Tests Test 06/14/16 11:38 06/14/16 13:08 06/14/16 17:31 06/14/16 20:32 Glucose (Fingerstick) 268mg/dL (70-99) 235mg/dL (70-99) 165mg/dL (70-99) 311mg/dL (70-99) Test 06/15/16 08:11 Glucose (Fingerstick) 178mg/dL (70-99) Assessment and Plan Assessmemt and Plan Problems Medical Problems: (1) Congestive heart failure Status: Acute (2) NSTEMI (non-ST elevated myocardial infarction) Status: Acute Problems: Comment Review of Relevant I have reviewed the following items fede (where applicable) has been applied. Labs Laboratory Tests Test 06/13/16 11:52 06/13/16 16:43 06/13/16 20:15 06/14/16 05:45 Glucose (Fingerstick) 267mg/dL (70-99) 227mg/dL (70-99) 330mg/dL (70-99) White Blood Count 6.9x10^3/uL (4.0-11.0) Red Blood Count 2.31x10^6/uL (3.50-5.40) Hemoglobin 7.1g/dL (12.0-15.5) Hematocrit 21.6% (36.0-47.0) Mean Corpuscular Volume 94fL (79-100) Mean Corpuscular Hemoglobin 31pg (25-35) Mean Corpuscular Hemoglobin Concent 33g/dL (31-37) Red Cell Distribution Width 14.8% (11.5-14.5) Platelet Count 199x10^3/uL (140-400) Neutrophils (%) (Auto) 61% (31-73) Lymphocytes (%) (Auto) 26% (24-48) Monocytes (%) (Auto) 9% (0-9) Eosinophils (%) (Auto) 4% (0-3) Basophils (%) (Auto) 1% (0-3) Neutrophils # (Auto) 4.2x10^3uL (1.8-7.7) Lymphocytes # (Auto) 1.8x10^3/uL (1.0-4.8) Monocytes # (Auto) 0.6x10^3/uL (0.0-1.1) Eosinophils # (Auto) 0.3x10^3/uL (0.0-0.7) Basophils # (Auto) 0.0x10^3/uL (0.0-0.2) Sodium Level 139mmol/L (136-145) Potassium Level 4.1mmol/L (3.5-5.1) Chloride Level 104mmol/L (98-107) Carbon Dioxide Level 24mmol/L (21-32) Anion Gap 11 (6-14) Blood Urea Nitrogen 53mg/dL (7-20) Creatinine 4.1mg/dL (0.6-1.0) Estimated GFR (Cockcroft-Gault) 11.1 Glucose Level 220mg/dL (70-99) Calcium Level 8.1mg/dL (8.5-10.1) Phosphorus Level 4.0mg/dL (2.6-4.7) Albumin 2.2g/dL (3.4-5.0) Test 06/14/16 07:13 06/14/16 11:38 06/14/16 13:08 06/14/16 17:31 Glucose (Fingerstick) 197mg/dL (70-99) 268mg/dL (70-99) 235mg/dL (70-99) 165mg/dL (70-99) Test 06/14/16 20:32 06/15/16 08:11 Glucose (Fingerstick) 311mg/dL (70-99) 178mg/dL (70-99) Laboratory Tests Test 06/14/16 11:38 06/14/16 13:08 06/14/16 17:31 06/14/16 20:32 Glucose (Fingerstick) 268mg/dL (70-99) 235mg/dL (70-99) 165mg/dL (70-99) 311mg/dL (70-99) Test 06/15/16 08:11 Glucose (Fingerstick) 178mg/dL (70-99) Microbiology 06/04/16 Blood Culture - Final, Complete NO GROWTH AFTER 5 DAYS 06/06/16 Urine Culture - Final, Complete 06/06/16 Urine Culture Result 1 (KUSHAL) - Final, Complete Medications Current Medications Aspirin 324 mg 324 mg 1X ONCE PO Last administered on 06/01/16 12:59; Start at 12:45; Stop 06/01/16 at 12:48; Status DC Heparin Sodium/ Dextrose 500 ml @ 19 mls/hr CONT PRN IV SEE I/O RECORD Last administered on 06/02/16 14:45; Start 06/01/16 at 12:45; Stop 06/03/16 at 15:30; Status DC Heparin Sodium (Porcine) 1,950 unit PRN Q6HRS PRN IV FOR UFH LEVEL LESS THAN 0.2 Last administered on 06/01/16 13:01; Start 06/01/16 at 12:45; Stop 06/03/16 at 15:30; Status DC Ondansetron HCl (Zofran) 4 mg PRN Q8HRS PRN IV NAUSEA/VOMITING; Start 06/01/16 at 12:45; Stop 06/02/16 at 12:44; Status DC Morphine Sulfate 4 mg PRN Q2HR PRN IV PAIN Last administered on 06/01/16 14:03 ; Start 06/01/16 at 12:45; Stop 06/02/16 at 12:44; Status DC Nitroglycerin (Nitrostat) 0.4 mg PRN Q5MIN PRN SL CHEST PAIN Last administered on 06/01/16 14:03; Start 06/01/16 at 12:45; Stop 06/02/16 at 12:44; Status DC Amlodipine Besylate (Norvasc) 5 mg DAILYWLUN PO Last administered on 06/02/16 08:32; Start 06/01/16 at 14:00; Stop 06/02/16 at 16:02; Status DC Aspirin (Ecotrin) 81 mg DAILYWBKFT PO Last administered on 06/15/16 09:51; Start 06/01/16 at 14:00 Atorvastatin Calcium (Lipitor) 80 mg QHS PO Last administered on 06/14/16 20: 52; Start 06/01/16 at 21:00 Carvedilol (Coreg) 25 mg BIDWMEALS PO Last administered on 06/15/16 09:57; Start 06/01/16 at 17:00 Clopidogrel Bisulfate (Plavix) 75 mg DAILY PO Last administered on 06/01/16 14: 28; Start 06/01/16 at 14:00; Stop 06/02/16 at 08:41; Status DC Isosorbide Mononitrate (Imdur) 30 mg DAILY PO Last administered on 06/15/16 09 :56; Start 06/01/16 at 14:00 Furosemide (Lasix) 40 mg 1X ONCE IVP Last administered on 06/01/16 14:30; Start 06/01/16 at 14:00; Stop 06/01/16 at 14:23; Status DC Furosemide 40 mg 40 mg 1X ONCE IVP Last administered on 06/01/16 14:30; Start 06/01/16 at 14:30; Stop 06/01/16 at 14:38; Status DC Nitroglycerin/ Dextrose (Nitroglycerin Drip) 250 ml @ 0 mls/hr CONT PRN IV SEE I/O RECORD Last administered on 06/01/16 15:23; Start 06/01/16 at 14:30; Stop 06/02/16 at 16:02; Status DC Acetaminophen (Tylenol) 325 mg PRN Q6HRS PRN PO MILD PAIN / TEMP Last administered on 06/07/16 21:59; Start 06/01/16 at 15:00 Acetaminophen/ Hydrocodone Bitart (Lortab 5/325) 1 tab PRN Q6HRS PRN PO MODERATE TO SEVERE PAIN Last administered on 06/09/16 21:18; Start 06/01/16 at 15:00 Hydralazine HCl (Apresoline) 10 mg PRN Q4HRS PRN IVP ELEVATED BP, SEE COMMENTS Last administered on 06/14/16 11:16; Start 06/01/16 at 15:00 Ondansetron HCl (Zofran) 4 mg PRN Q8HRS PRN IV NAUSEA/VOMITING; Start 06/01/16 at 15:00 Albuterol Sulfate (Ventolin Neb Soln) 2.5 mg PRN Q4HRS PRN NEB SHORTNESS OF BREATH; Start 06/01/16 at 15:00 Insulin Aspart (Novolog) 0-7 UNITS TIDWMEALS SQ Last administered on 06/15/16 10:06; Start 06/01/16 at 17:00 Dextrose 12.5 gm PRN Q15MIN PRN IV SEE COMMENTS; Start 06/01/16 at 15:00 Info 1 each 1 each PRN DAILY PRN MC SEE COMMENTS Last administered on 06/03/16 09:38; Start 06/01/16 at 17:00; Stop 06/04/16 at 08:25; Status DC Magnesium Sulfate/ Dextrose (Magnesium Sulfate PREMIX 2GM) 50 ml @ 25 mls/hr PRN DAILY PRN IV for Mag < 1.7 on am labs; Start 06/02/16 at 11:15 Lidocaine/Sodium Bicarbonate (Buffered Lidocaine 1%) 3 ml 1X ONCE IJ Last administered on 06/02/16 14:03; Start 06/02/16 at 12:30; Stop 06/02/16 at 12:34; Status DC Heparin Sodium (Porcine) 2,400 unit 1X ONCE INT CAT Last administered on 14:04; Start 06/02/16 at 12:30; Stop 06/02/16 at 12:34; Status DC Heparin Sodium/ Sodium Chloride 60 unit 1X ONCE IV Last administered on 14:04; Start 06/02/16 at 12:30; Stop 06/02/16 at 12:34; Status DC Lisinopril (Prinivil) 20 mg DAILY PO Last administered on 06/06/16 09:22; Start 06/02/16 at 16:00; Stop 06/07/16 at 10:31; Status DC Hydralazine HCl 50 mg 50 mg BID PO Last administered on 06/06/16 20:55; Start 06/02/16 at 21:00; Stop 06/07/16 at 10:31; Status DC Sodium Chloride (Iv Sodium Chloride 0.9% 1000ml Bag) 1,000 ml @ 1,000 mls/hr Q1H PRN IV hypotension; Start 06/02/16 at 18:28; Stop 06/03/16 at 00:27; Status DC Diphenhydramine HCl (Benadryl) 25 mg 1X PRN PRN IV ITCHING; Start 06/02/16 at 18 :30; Stop 06/03/16 at 18:29; Status DC Diphenhydramine HCl (Benadryl) 25 mg 1X PRN PRN IV ITCHING; Start 06/02/16 at 18 :30; Stop 06/03/16 at 18:29; Status DC Sodium Chloride (Normal Saline Flush) 10 ml 1X PRN PRN IV AP catheter pack; Start 06/02/16 at 18:30; Stop 06/03/16 at 18:29; Status DC Sodium Chloride 10 ml 10 ml 1X PRN PRN IV LAMINATING MACHINE FEEDER catheter pack; Start 06/02/16 at 18 :30; Stop 06/03/16 at 18:29; Status DC Sodium Chloride (Iv Sodium Chloride 0.9% 1000ml Bag) 1,000 ml @ 400 mls/hr Q2H30M PRN IV PATENCY; Start 06/02/16 at 18:28; Stop 06/03/16 at 06:27; Status DC Info (PHARMACY MONITORING -- do not chart) 1 each PRN DAILY PRN MC SEE COMMENTS ; Start 06/02/16 at 18:30 Info (PHARMACY MONITORING -- do not chart) 1 each PRN DAILY PRN MC SEE COMMENTS ; Start 06/03/16 at 10:30; Status UNV Info (PHARMACY MONITORING -- do not chart) 1 each PRN DAILY PRN MC SEE COMMENTS ; Start 06/03/16 at 10:30; Status Cancel Darbepoetin Malick (Aranesp) 60 mcg WEEKLYHS SQ Last administered on 06/10/16 20 :53; Start 06/03/16 at 21:00 Clopidogrel Bisulfate (Plavix) 75 mg DAILYWBKFT PO ; Start 06/04/16 at 08:00; Stop 06/04/16 at 08:00; Status DC Clopidogrel Bisulfate 75 mg 75 mg DAILYWBKFT PO Last administered on 06/04/16 08:25; Start 06/03/16 at 15:30; Stop 06/05/16 at 18:54; Status DC Sodium Chloride (Iv Sodium Chloride 0.9% 1000ml Bag) 1,000 ml @ 1,000 mls/hr Q1H PRN IV hypotension; Start 06/04/16 at 08:11; Stop 06/04/16 at 15:00; Status DC Diphenhydramine HCl (Benadryl) 25 mg 1X PRN PRN IV ITCHING; Start 06/04/16 at 08:15; Stop 06/04/16 at 15:00; Status DC Diphenhydramine HCl (Benadryl) 25 mg 1X PRN PRN IV ITCHING; Start 06/04/16 at 08:15; Stop 06/04/16 at 15:00; Status DC Sodium Chloride (Normal Saline Flush) 10 ml 1X PRN PRN IV AP catheter pack; Start 06/04/16 at 08:15; Stop 06/04/16 at 15:00; Status DC Sodium Chloride 10 ml 10 ml 1X PRN PRN IV LAMINATING MACHINE FEEDER catheter pack; Start 06/04/16 at 08:15; Stop 06/04/16 at 15:00; Status DC Sodium Chloride (Iv Sodium Chloride 0.9% 1000ml Bag) 1,000 ml @ 400 mls/hr Q2H30M PRN IV PATENCY; Start 06/04/16 at 08:11; Stop 06/04/16 at 21:00; Status DC Info 1 each 1 each PRN DAILY PRN MC SEE COMMENTS; Start 06/04/16 at 08:15; Status UNV Magnesium Sulfate/ Dextrose 100 ml @ 100 mls/hr 1X ONCE IV Last administered on 06/04/16 12:36; Start 06/04/16 at 10:30; Stop 06/04/16 at 11:29; Status DC Ceftriaxone Sodium 1 gm/ Sodium Chloride 50 ml @ 100 mls/hr Q24H IV Last administered on 06/09/16 17:35; Start 06/06/16 at 16:00; Stop 06/10/16 at 15:02 ; Status DC Sodium Chloride 1,000 ml @ 1,000 mls/hr Q1H PRN IV hypotension; Start 06/07/16 at 08:48; Stop 06/07/16 at 14:47; Status DC Sodium Chloride (Iv Sodium Chloride 0.9% 1000ml Bag) 1,000 ml @ 400 mls/hr Q2H30M PRN IV PATENCY; Start 06/07/16 at 08:48; Stop 06/07/16 at 20:47; Status DC Info (PHARMACY MONITORING -- do not chart) 1 each PRN DAILY PRN MC SEE COMMENTS ; Start 06/07/16 at 09:00; Status UNV Lisinopril (Prinivil) 40 mg DAILY PO Last administered on 06/15/16 09:55; Start 06/08/16 at 09:00 Cyanocobalamin (Vitamin B-12) 1,000 mcg DAILY PO Last administered on 09:53; Start 06/07/16 at 15:30 Ferrous Sulfate (Feosol) 325 mg BID PO Last administered on 06/15/16 09:58; Start 06/07/16 at 21:00 Heparin Sodium (Porcine) 10,000 unit STK-MED ONCE .ROUTE ; Start 06/08/16 at 17: 14; Stop 06/08/16 at 17:15; Status DC Lidocaine/ Epinephrine 20 ml 20 ml STK-MED ONCE .ROUTE ; Start 06/08/16 at 17:14 ; Stop 06/08/16 at 17:15; Status DC Heparin Sodium/ Sodium Chloride 500 ml @ As Directed STK-MED ONCE .ROUTE ; Start 06/08/16 at 17:14; Stop 06/08/16 at 17:15; Status DC Fentanyl Citrate (Fentanyl 2ml Vial) 100 mcg STK-MED ONCE .ROUTE ; Start at 17:35; Stop 06/08/16 at 17:36; Status DC Midazolam HCl 2 mg 2 mg STK-MED ONCE .ROUTE ; Start 06/08/16 at 17:35; Stop at 17:36; Status DC Cefazolin Sodium (Ancef 1gm Ivpb For Omni) 50 ml @ As Directed STK-MED ONCE IV ; Start 06/08/16 at 17:36; Stop 06/08/16 at 17:37; Status DC Heparin Sodium/ Sodium Chloride 1,000 unit 1X ONCE IART Last administered on 18:04; Start 06/08/16 at 18:00; Stop 06/08/16 at 18:02; Status DC Midazolam HCl (Versed) 2 mg 1X ONCE IV Last administered on 06/08/16 18:04; Start 06/08/16 at 18:00; Stop 06/08/16 at 18:02; Status DC Fentanyl Citrate (Fentanyl 2ml Vial) 100 mcg 1X ONCE IV Last administered on 18:04; Start 06/08/16 at 18:00; Stop 06/08/16 at 18:02; Status DC Heparin Sodium (Porcine) 4300 unit 4,300 unit 1X ONCE IV Last administered on 06/08/16 18:05; Start 06/08/16 at 18:00; Stop 06/08/16 at 18:02; Status DC Cefazolin Sodium (Ancef 1gm Ivpb For Omni) 50 ml @ 100 mls/hr 1X ONCE IV Last administered on 06/08/16 18:06; Start 06/08/16 at 18:00; Stop 06/08/16 at 18:29; Status DC Lidocaine/ Epinephrine 10 ml 10 ml 1X ONCE IJ Last administered on 06/08/16 18:05; Start 06/08/16 at 18:00; Stop 06/08/16 at 18:02; Status DC Sodium Chloride 1,000 ml @ 1,000 mls/hr Q1H PRN IV hypotension; Start 06/09/16 at 14:32; Stop 06/09/16 at 20:31; Status DC Albumin Human (Albuminar) 200 ml @ 200 mls/hr 1X PRN PRN IV Hypotension; Start 06/09/16 at 14:45; Stop 06/09/16 at 20:44; Status DC Sodium Chloride (Normal Saline Flush) 10 ml 1X PRN PRN IV AP catheter pack; Start 06/09/16 at 14:45; Stop 06/10/16 at 14:44; Status DC Sodium Chloride 10 ml 10 ml 1X PRN PRN IV LAMINATING MACHINE FEEDER catheter pack; Start 06/09/16 at 14:45; Stop 06/10/16 at 14:44; Status DC Sodium Chloride (Iv Sodium Chloride 0.9% 1000ml Bag) 1,000 ml @ 400 mls/hr Q2H30M PRN IV PATENCY; Start 06/09/16 at 14:32; Stop 06/10/16 at 02:31; Status DC Glimepiride 1 mg 1 mg DAILY PO Last administered on 06/12/16t 09:28; Start at 17:00; Stop 06/12/16 at 13:46; Status DC Sodium Chloride (Iv Sodium Chloride 0.9% 1000ml Bag) 1,000 ml @ 1,000 mls/hr Q1H PRN IV hypotension; Start 06/11/16 at 09:18; Stop 06/11/16 at 15:17; Status DC Acetaminophen (Tylenol) 500 mg 1X PRN PRN PO MILD PAIN / TEMP; Start 06/11/16 at 09:30; Stop 06/12/16 at 09:29; Status DC Diphenhydramine HCl (Benadryl) 25 mg 1X PRN PRN IV ITCHING; Start 06/11/16 at 09:30; Stop 06/12/16 at 09:29; Status DC Diphenhydramine HCl (Benadryl) 25 mg 1X PRN PRN IV ITCHING; Start 06/11/16 at 09:30; Stop 06/12/16 at 09:29; Status DC Sodium Chloride (Normal Saline Flush) 10 ml 1X PRN PRN IV AP catheter pack; Start 06/11/16 at 09:30; Stop 06/12/16 at 09:29; Status DC Sodium Chloride (Normal Saline Flush) 10 ml 1X PRN PRN IV LAMINATING MACHINE FEEDER catheter pack; Start 06/11/16 at 09:30; Stop 06/12/16 at 09:29; Status DC Labetalol HCl 10 mg 10 mg PRN Q1HR PRN IVP SBP > 180; Start 06/11/16 at 09:30; Stop 06/12/16 at 09:29; Status DC Sodium Chloride (Iv Sodium Chloride 0.9% 1000ml Bag) 1,000 ml @ 400 mls/hr Q2H30M PRN IV PATENCY; Start 06/11/16 at 09:18; Stop 06/11/16 at 21:17; Status DC Info (PHARMACY MONITORING -- do not chart) 1 each PRN DAILY PRN MC SEE COMMENTS ; Start 06/11/16 at 09:30; Status UNV Amlodipine Besylate (Norvasc) 5 mg DAILY PO Last administered on 06/15/16 09: 54; Start 06/12/16 at 12:00 Glimepiride (Amaryl) 2 mg DAILY PO Last administered on 06/15/16 09:52; Start 06/13/16 at 09:00 Insulin Detemir 10 units 10 units QHS SQ Last administered on 06/14/16 20:56; Start 06/13/16 at 21:00 Sodium Chloride (Iv Sodium Chloride 0.9% 1000ml Bag) 1,000 ml @ 1,000 mls/hr Q1H PRN IV hypotension; Start 06/14/16 at 13:02; Stop 06/14/16 at 19:01; Status DC Sodium Chloride (Normal Saline Flush) 10 ml 1X PRN PRN IV AP catheter pack; Start 06/14/16 at 13:15; Stop 06/15/16 at 13:14 Sodium Chloride (Normal Saline Flush) 10 ml 1X PRN PRN IV LAMINATING MACHINE FEEDER catheter pack; Start 06/14/16 at 13:15; Stop 06/15/16 at 13:14 Info (PHARMACY MONITORING -- do not chart) 1 each PRN DAILY PRN MC SEE COMMENTS ; Start 06/14/16 at 13:15; Status UNV Info (PHARMACY MONITORING -- do not chart) 1 each PRN DAILY PRN MC SEE COMMENTS ; Start 06/14/16 at 13:15; Status UNV Active Scripts Active Lisinopril 20 Mg Tablet 20 Mg PO QHS Isosorbide Mononitrate Er (Isosorbide Mononitrate) 30 Mg Tab.er.24h 30 Mg PO DAILY Hydralazine Hcl 50 Mg Tablet 100 Mg PO TID Carvedilol 12.5 Mg Tablet 25 Mg PO BIDWMEALS Atorvastatin Calcium 40 Mg Tablet 80 Mg PO QHS Aspirin Ec (Aspirin) 81 Mg Tablet.dr 81 Mg PO DAILYWBKFT Amlodipine Besylate 5 Mg Tablet 5 Mg PO DAILYWLUN Reported Clopidogrel (Clopidogrel Bisulfate) 75 Mg Tablet 75 Mg PO DAILY Glyburide 5 Mg Tablet 1 Tab PO BIDWMEALS Lisinopril 20 Mg Tablet 1 Tab PO DAILY Vitals/I & O Vital Sign - Last 24 Hours 06/14/16 06/14/16 06/14/16 06/14/16 11:00 11:14 11:16 17:34 Temp 97.9 97.9 Pulse 70 70 70 70 Resp 18 B/P 185/79 185/79 185/79 176/75 Pulse Ox 97 O2 Delivery Room Air 06/14/16 06/14/16 06/14/16 06/14/16 17:34 17:35 17:36 19:50 Temp 98.7 98.7 Pulse 70 70 70 79 Resp 18 B/P 175/75 175/75 175/75 172/61 Pulse Ox 96 O2 Delivery Room Air 06/14/16 06/14/16 06/15/16 06/15/16 20:00 22:55 03:00 07:40 Temp 98.6 98.5 98.4 98.6 98.5 98.4 Pulse 76 70 68 Resp 18 18 18 B/P 188/69 154/61 156/62 Pulse Ox 98 98 95 O2 Delivery Room Air Room Air Room Air Room Air 06/15/16 06/15/16 06/15/16 06/15/16 08:13 09:54 09:55 09:56 Pulse 68 68 68 B/P 169/74 169/74 169/74 O2 Delivery Room Air 06/15/16 09:57 Pulse 68 B/P 169/74 Intake and Output 06/14/16 06/14/16 06/15/16 15:00 23:00 07:00 Intake Total 580 ml 840 ml Output Total 1200 ml 200 ml Balance -620 ml 640 ml SELMA LALA MD Jun 15, 2016 10:20
[2016-06-15 11:01] VITALS: BP 178/76
[2016-06-15 15:02] VITALS: BP 142/52
[2016-06-15 19:05] VITALS: BP 148/49
[2016-06-15] MEDS: INSULIN DETEMIR 300 UNITS/3 ML INSULN.PEN. SQ SCH (21:00)
[2016-06-15] MEDS: ATORVASTATIN CALCIUM 40 MG TABLET. PO SCH (21:41)
[2016-06-15 23:00] VITALS: BP 142/61
[2016-06-16 03:05] VITALS: BP 165/56
[2016-06-16 07:00] VITALS: BP 174/64
[2016-06-16] MEDS ORDERED: IV NORMAL SALINE 1000ML BAG 1,000 ML IV PRN ×2 (07:54)
[2016-06-16] MEDS ORDERED: DIPHENHYDRAMINE 50 MG/ML VIAL IV PRN ×2 (08:00)
[2016-06-16] MEDS ORDERED: LABETALOL 20 MG/4 ML DISP.SYRIN. IVP PRN (08:00)
[2016-06-16] MEDS: INSULIN ASPART 300 UNITS/3 ML INSULN.PEN SQ SCH ×3 (08:00→18:39)
[2016-06-16] MEDS ORDERED: DIALYSIS PATIENT. MC PRN ×2 (08:00)
[2016-06-16] MEDS ORDERED: 0.9 % SODIUM CHLORIDE 10 ML DISP.SYRIN. IV PRN ×2 (08:00)
[2016-06-16 09:56] LABS: CREATININE 3.2 mg/dL (0.6-1.0); GFR 14.8; POTASSIUM 4.3 mmol/L (3.5-5.1)
--- NOTE | 2016-06-16 10:05 | PDOC ---
PROGRESS NOTES Chief Complaint Chief Complaint cc: sob A//P 1. Acute on chronic systolic congestive heart failure. Stable 2. [id number] elevation myocardial infarction. 3. ZORAN with CKD on HD 4. Ischemic cardiomyopathy. 5. Malignant hypertension, Better 6. Anemia 7. Hyperlipidemia. 8. Psoriasis. 9. CAD 10. Anemia 11. UTI not POA 12. DM2 Plan HD per nephrology monitor hemoglobin BP stable SSI with Haim NUÑEZ to find place for out HD, Labs reviewed. History of Present Illness History of Present Illness doing better no fever no chills no acute events Vitals Vitals Vital Signs Date Time Temp Pulse Resp B/P Pulse Ox O2 Delivery O2 Flow Rate FiO2 06/16/16 08:00 Room Air 2.0 06/16/16 07:00 98.4 63 18 174/64 94 98.4 Physical Exam General: Alert, Oriented X3 Heart: Regular rate, Normal S1, Normal S2, No murmurs, Gallops Lungs: Clear, Other Abdomen: Normal bowel sounds, Soft, No tenderness, No hepatosplenomegaly, No masses Extremities: No clubbing, No cyanosis, No edema, Normal pulses, No tenderness/ swelling Skin: No breakdown, No significant lesion, Other (psoriasis ) Labs LABS Laboratory Tests Test 06/15/16 10:45 06/15/16 16:44 06/15/16 20:35 06/16/16 08:20 Glucose (Fingerstick) 310mg/dL (70-99) 264mg/dL (70-99) 276mg/dL (70-99) Sodium Level 142mmol/L (136-145) Potassium Level 4.3mmol/L (3.5-5.1) Chloride Level 105mmol/L (98-107) Carbon Dioxide Level 28mmol/L (21-32) Anion Gap 9 (6-14) Blood Urea Nitrogen 37mg/dL (7-20) Creatinine 3.2mg/dL (0.6-1.0) Estimated GFR (Cockcroft-Gault) 14.8 Glucose Level 165mg/dL (70-99) Calcium Level 8.0mg/dL (8.5-10.1) Assessment and Plan Assessmemt and Plan Problems Medical Problems: (1) Congestive heart failure Status: Acute (2) NSTEMI (non-ST elevated myocardial infarction) Status: Acute Problems: Comment Review of Relevant I have reviewed the following items fede (where applicable) has been applied. Labs Laboratory Tests Test 06/14/16 11:38 06/14/16 13:08 06/14/16 17:31 06/14/16 20:32 Glucose (Fingerstick) 268mg/dL (70-99) 235mg/dL (70-99) 165mg/dL (70-99) 311mg/dL (70-99) Test 06/15/16 08:11 06/15/16 10:45 06/15/16 16:44 06/15/16 20:35 Glucose (Fingerstick) 178mg/dL (70-99) 310mg/dL (70-99) 264mg/dL (70-99) 276mg/dL (70-99) Test 06/16/16 08:20 Sodium Level 142mmol/L (136-145) Potassium Level 4.3mmol/L (3.5-5.1) Chloride Level 105mmol/L (98-107) Carbon Dioxide Level 28mmol/L (21-32) Anion Gap 9 (6-14) Blood Urea Nitrogen 37mg/dL (7-20) Creatinine 3.2mg/dL (0.6-1.0) Estimated GFR (Cockcroft-Gault) 14.8 Glucose Level 165mg/dL (70-99) Calcium Level 8.0mg/dL (8.5-10.1) Laboratory Tests Test 06/15/16 10:45 06/15/16 16:44 06/15/16 20:35 06/16/16 08:20 Glucose (Fingerstick) 310mg/dL (70-99) 264mg/dL (70-99) 276mg/dL (70-99) Sodium Level 142mmol/L (136-145) Potassium Level 4.3mmol/L (3.5-5.1) Chloride Level 105mmol/L (98-107) Carbon Dioxide Level 28mmol/L (21-32) Anion Gap 9 (6-14) Blood Urea Nitrogen 37mg/dL (7-20) Creatinine 3.2mg/dL (0.6-1.0) Estimated GFR (Cockcroft-Gault) 14.8 Glucose Level 165mg/dL (70-99) Calcium Level 8.0mg/dL (8.5-10.1) Microbiology 06/04/16 Blood Culture - Final, Complete NO GROWTH AFTER 5 DAYS 06/06/16 Urine Culture - Final, Complete 06/06/16 Urine Culture Result 1 (KUSHAL) - Final, Complete Medications Current Medications Aspirin 324 mg 324 mg 1X ONCE PO Last administered on 06/01/16 12:59; Start at 12:45; Stop 06/01/16 at 12:48; Status DC Heparin Sodium/ Dextrose 500 ml @ 19 mls/hr CONT PRN IV SEE I/O RECORD Last administered on 06/02/16 14:45; Start 06/01/16 at 12:45; Stop 06/03/16 at 15:30; Status DC Heparin Sodium (Porcine) 1,950 unit PRN Q6HRS PRN IV FOR UFH LEVEL LESS THAN 0.2 Last administered on 06/01/16 13:01; Start 06/01/16 at 12:45; Stop 06/03/16 at 15:30; Status DC Ondansetron HCl (Zofran) 4 mg PRN Q8HRS PRN IV NAUSEA/VOMITING; Start 06/01/16 at 12:45; Stop 06/02/16 at 12:44; Status DC Morphine Sulfate 4 mg PRN Q2HR PRN IV PAIN Last administered on 06/01/16 14:03 ; Start 06/01/16 at 12:45; Stop 06/02/16 at 12:44; Status DC Nitroglycerin (Nitrostat) 0.4 mg PRN Q5MIN PRN SL CHEST PAIN Last administered on 06/01/16 14:03; Start 06/01/16 at 12:45; Stop 06/02/16 at 12:44; Status DC Amlodipine Besylate (Norvasc) 5 mg DAILYWLUN PO Last administered on 06/02/16 08:32; Start 06/01/16 at 14:00; Stop 06/02/16 at 16:02; Status DC Aspirin (Ecotrin) 81 mg DAILYWBKFT PO Last administered on 06/15/16 09:51; Start 06/01/16 at 14:00 Atorvastatin Calcium (Lipitor) 80 mg QHS PO Last administered on 06/15/16 21: 41; Start 06/01/16 at 21:00 Carvedilol (Coreg) 25 mg BIDWMEALS PO Last administered on 06/15/16 17:09; Start 06/01/16 at 17:00 Clopidogrel Bisulfate (Plavix) 75 mg DAILY PO Last administered on 06/01/16 14: 28; Start 06/01/16 at 14:00; Stop 06/02/16 at 08:41; Status DC Isosorbide Mononitrate (Imdur) 30 mg DAILY PO Last administered on 06/15/16 09 :56; Start 06/01/16 at 14:00 Furosemide (Lasix) 40 mg 1X ONCE IVP Last administered on 06/01/16 14:30; Start 06/01/16 at 14:00; Stop 06/01/16 at 14:23; Status DC Furosemide 40 mg 40 mg 1X ONCE IVP Last administered on 06/01/16 14:30; Start 06/01/16 at 14:30; Stop 06/01/16 at 14:38; Status DC Nitroglycerin/ Dextrose (Nitroglycerin Drip) 250 ml @ 0 mls/hr CONT PRN IV SEE I/O RECORD Last administered on 06/01/16 15:23; Start 06/01/16 at 14:30; Stop 06/02/16 at 16:02; Status DC Acetaminophen (Tylenol) 325 mg PRN Q6HRS PRN PO MILD PAIN / TEMP Last administered on 06/07/16 21:59; Start 06/01/16 at 15:00 Acetaminophen/ Hydrocodone Bitart (Lortab 5/325) 1 tab PRN Q6HRS PRN PO MODERATE TO SEVERE PAIN Last administered on 06/09/16 21:18; Start 06/01/16 at 15:00 Hydralazine HCl (Apresoline) 10 mg PRN Q4HRS PRN IVP ELEVATED BP, SEE COMMENTS Last administered on 06/14/16 11:16; Start 06/01/16 at 15:00 Ondansetron HCl (Zofran) 4 mg PRN Q8HRS PRN IV NAUSEA/VOMITING; Start 06/01/16 at 15:00 Albuterol Sulfate (Ventolin Neb Soln) 2.5 mg PRN Q4HRS PRN NEB SHORTNESS OF BREATH; Start 06/01/16 at 15:00 Insulin Aspart (Novolog) 0-7 UNITS TIDWMEALS SQ Last administered on 06/15/16 17:12; Start 06/01/16 at 17:00 Dextrose 12.5 gm PRN Q15MIN PRN IV SEE COMMENTS; Start 06/01/16 at 15:00 Info 1 each 1 each PRN DAILY PRN MC SEE COMMENTS Last administered on 06/03/16 09:38; Start 06/01/16 at 17:00; Stop 06/04/16 at 08:25; Status DC Magnesium Sulfate/ Dextrose (Magnesium Sulfate PREMIX 2GM) 50 ml @ 25 mls/hr PRN DAILY PRN IV for Mag < 1.7 on am labs; Start 06/02/16 at 11:15 Lidocaine/Sodium Bicarbonate (Buffered Lidocaine 1%) 3 ml 1X ONCE IJ Last administered on 06/02/16 14:03; Start 06/02/16 at 12:30; Stop 06/02/16 at 12:34; Status DC Heparin Sodium (Porcine) 2,400 unit 1X ONCE INT CAT Last administered on 14:04; Start 06/02/16 at 12:30; Stop 06/02/16 at 12:34; Status DC Heparin Sodium/ Sodium Chloride 60 unit 1X ONCE IV Last administered on 14:04; Start 06/02/16 at 12:30; Stop 06/02/16 at 12:34; Status DC Lisinopril (Prinivil) 20 mg DAILY PO Last administered on 06/06/16 09:22; Start 06/02/16 at 16:00; Stop 06/07/16 at 10:31; Status DC Hydralazine HCl 50 mg 50 mg BID PO Last administered on 06/06/16 20:55; Start 06/02/16 at 21:00; Stop 06/07/16 at 10:31; Status DC Sodium Chloride (Iv Sodium Chloride 0.9% 1000ml Bag) 1,000 ml @ 1,000 mls/hr Q1H PRN IV hypotension; Start 06/02/16 at 18:28; Stop 06/03/16 at 00:27; Status DC Diphenhydramine HCl (Benadryl) 25 mg 1X PRN PRN IV ITCHING; Start 06/02/16 at 18 :30; Stop 06/03/16 at 18:29; Status DC Diphenhydramine HCl (Benadryl) 25 mg 1X PRN PRN IV ITCHING; Start 06/02/16 at 18 :30; Stop 06/03/16 at 18:29; Status DC Sodium Chloride (Normal Saline Flush) 10 ml 1X PRN PRN IV AP catheter pack; Start 06/02/16 at 18:30; Stop 06/03/16 at 18:29; Status DC Sodium Chloride 10 ml 10 ml 1X PRN PRN IV [employer] catheter pack; Start 06/02/16 at 18 :30; Stop 06/03/16 at 18:29; Status DC Sodium Chloride (Iv Sodium Chloride 0.9% 1000ml Bag) 1,000 ml @ 400 mls/hr Q2H30M PRN IV PATENCY; Start 06/02/16 at 18:28; Stop 06/03/16 at 06:27; Status DC Info (PHARMACY MONITORING -- do not chart) 1 each PRN DAILY PRN MC SEE COMMENTS ; Start 06/02/16 at 18:30 Info (PHARMACY MONITORING -- do not chart) 1 each PRN DAILY PRN MC SEE COMMENTS ; Start 06/03/16 at 10:30; Status UNV Info (PHARMACY MONITORING -- do not chart) 1 each PRN DAILY PRN MC SEE COMMENTS ; Start 06/03/16 at 10:30; Status Cancel Darbepoetin Malick (Aranesp) 60 mcg WEEKLYHS SQ Last administered on 06/10/16 20 :53; Start 06/03/16 at 21:00 Clopidogrel Bisulfate (Plavix) 75 mg DAILYWBKFT PO ; Start 06/04/16 at 08:00; Stop 06/04/16 at 08:00; Status DC Clopidogrel Bisulfate 75 mg 75 mg DAILYWBKFT PO Last administered on 06/04/16 08:25; Start 06/03/16 at 15:30; Stop 06/05/16 at 18:54; Status DC Sodium Chloride (Iv Sodium Chloride 0.9% 1000ml Bag) 1,000 ml @ 1,000 mls/hr Q1H PRN IV hypotension; Start 06/04/16 at 08:11; Stop 06/04/16 at 15:00; Status DC Diphenhydramine HCl (Benadryl) 25 mg 1X PRN PRN IV ITCHING; Start 06/04/16 at 08:15; Stop 06/04/16 at 15:00; Status DC Diphenhydramine HCl (Benadryl) 25 mg 1X PRN PRN IV ITCHING; Start 06/04/16 at 08:15; Stop 06/04/16 at 15:00; Status DC Sodium Chloride (Normal Saline Flush) 10 ml 1X PRN PRN IV AP catheter pack; Start 06/04/16 at 08:15; Stop 06/04/16 at 15:00; Status DC Sodium Chloride 10 ml 10 ml 1X PRN PRN IV [employer] catheter pack; Start 06/04/16 at 08:15; Stop 06/04/16 at 15:00; Status DC Sodium Chloride (Iv Sodium Chloride 0.9% 1000ml Bag) 1,000 ml @ 400 mls/hr Q2H30M PRN IV PATENCY; Start 06/04/16 at 08:11; Stop 06/04/16 at 21:00; Status DC Info 1 each 1 each PRN DAILY PRN MC SEE COMMENTS; Start 06/04/16 at 08:15; Status UNV Magnesium Sulfate/ Dextrose 100 ml @ 100 mls/hr 1X ONCE IV Last administered on 06/04/16t 12:36; Start 06/04/16 at 10:30; Stop 06/04/16 at 11:29; Status DC Ceftriaxone Sodium 1 gm/ Sodium Chloride 50 ml @ 100 mls/hr Q24H IV Last administered on 06/09/16 17:35; Start 06/06/16 at 16:00; Stop 06/10/16 at 15:02 ; Status DC Sodium Chloride 1,000 ml @ 1,000 mls/hr Q1H PRN IV hypotension; Start 06/07/16 at 08:48; Stop 06/07/16 at 14:47; Status DC Sodium Chloride (Iv Sodium Chloride 0.9% 1000ml Bag) 1,000 ml @ 400 mls/hr Q2H30M PRN IV PATENCY; Start 06/07/16 at 08:48; Stop 06/07/16 at 20:47; Status DC Info (PHARMACY MONITORING -- do not chart) 1 each PRN DAILY PRN MC SEE COMMENTS ; Start 06/07/16 at 09:00; Status UNV Lisinopril (Prinivil) 40 mg DAILY PO Last administered on 06/15/16 09:55; Start 06/08/16 at 09:00 Cyanocobalamin (Vitamin B-12) 1,000 mcg DAILY PO Last administered on 09:53; Start 06/07/16 at 15:30 Ferrous Sulfate (Feosol) 325 mg BID PO Last administered on 06/15/16 21:41; Start 06/07/16 at 21:00 Heparin Sodium (Porcine) 10,000 unit STK-MED ONCE .ROUTE ; Start 06/08/16 at 17: 14; Stop 06/08/16 at 17:15; Status DC Lidocaine/ Epinephrine 20 ml 20 ml STK-MED ONCE .ROUTE ; Start 06/08/16 at 17:14 ; Stop 06/08/16 at 17:15; Status DC Heparin Sodium/ Sodium Chloride 500 ml @ As Directed STK-MED ONCE .ROUTE ; Start 06/08/16 at 17:14; Stop 06/08/16 at 17:15; Status DC Fentanyl Citrate (Fentanyl 2ml Vial) 100 mcg STK-MED ONCE .ROUTE ; Start at 17:35; Stop 06/08/16 at 17:36; Status DC Midazolam HCl 2 mg 2 mg STK-MED ONCE .ROUTE ; Start 06/08/16 at 17:35; Stop at 17:36; Status DC Cefazolin Sodium (Ancef 1gm Ivpb For Omni) 50 ml @ As Directed STK-MED ONCE IV ; Start 06/08/16 at 17:36; Stop 06/08/16 at 17:37; Status DC Heparin Sodium/ Sodium Chloride 1,000 unit 1X ONCE IART Last administered on 18:04; Start 06/08/16 at 18:00; Stop 06/08/16 at 18:02; Status DC Midazolam HCl (Versed) 2 mg 1X ONCE IV Last administered on 06/08/16 18:04; Start 06/08/16 at 18:00; Stop 06/08/16 at 18:02; Status DC Fentanyl Citrate (Fentanyl 2ml Vial) 100 mcg 1X ONCE IV Last administered on 18:04; Start 06/08/16 at 18:00; Stop 06/08/16 at 18:02; Status DC Heparin Sodium (Porcine) 4300 unit 4,300 unit 1X ONCE IV Last administered on 06/08/16 18:05; Start 06/08/16 at 18:00; Stop 06/08/16 at 18:02; Status DC Cefazolin Sodium (Ancef 1gm Ivpb For Omni) 50 ml @ 100 mls/hr 1X ONCE IV Last administered on 06/08/16 18:06; Start 06/08/16 at 18:00; Stop 06/08/16 at 18:29; Status DC Lidocaine/ Epinephrine 10 ml 10 ml 1X ONCE IJ Last administered on 06/08/16 18:05; Start 06/08/16 at 18:00; Stop 06/08/16 at 18:02; Status DC Sodium Chloride 1,000 ml @ 1,000 mls/hr Q1H PRN IV hypotension; Start 06/09/16 at 14:32; Stop 06/09/16 at 20:31; Status DC Albumin Human (Albuminar) 200 ml @ 200 mls/hr 1X PRN PRN IV Hypotension; Start 06/09/16 at 14:45; Stop 06/09/16 at 20:44; Status DC Sodium Chloride (Normal Saline Flush) 10 ml 1X PRN PRN IV AP catheter pack; Start 06/09/16 at 14:45; Stop 06/10/16 at 14:44; Status DC Sodium Chloride 10 ml 10 ml 1X PRN PRN IV [employer] catheter pack; Start 06/09/16 at 14:45; Stop 06/10/16 at 14:44; Status DC Sodium Chloride (Iv Sodium Chloride 0.9% 1000ml Bag) 1,000 ml @ 400 mls/hr Q2H30M PRN IV PATENCY; Start 06/09/16 at 14:32; Stop 06/10/16 at 02:31; Status DC Glimepiride 1 mg 1 mg DAILY PO Last administered on 06/12/16 09:28; Start at 17:00; Stop 06/12/16 at 13:46; Status DC Sodium Chloride (Iv Sodium Chloride 0.9% 1000ml Bag) 1,000 ml @ 1,000 mls/hr Q1H PRN IV hypotension; Start 06/11/16 at 09:18; Stop 06/11/16 at 15:17; Status DC Acetaminophen (Tylenol) 500 mg 1X PRN PRN PO MILD PAIN / TEMP; Start 06/11/16 at 09:30; Stop 06/12/16 at 09:29; Status DC Diphenhydramine HCl (Benadryl) 25 mg 1X PRN PRN IV ITCHING; Start 06/11/16 at 09:30; Stop 06/12/16 at 09:29; Status DC Diphenhydramine HCl (Benadryl) 25 mg 1X PRN PRN IV ITCHING; Start 06/11/16 at 09:30; Stop 06/12/16 at 09:29; Status DC Sodium Chloride (Normal Saline Flush) 10 ml 1X PRN PRN IV AP catheter pack; Start 06/11/16 at 09:30; Stop 06/12/16 at 09:29; Status DC Sodium Chloride (Normal Saline Flush) 10 ml 1X PRN PRN IV [employer] catheter pack; Start 06/11/16 at 09:30; Stop 06/12/16 at 09:29; Status DC Labetalol HCl 10 mg 10 mg PRN Q1HR PRN IVP SBP > 180; Start 06/11/16 at 09:30; Stop 06/12/16 at 09:29; Status DC Sodium Chloride (Iv Sodium Chloride 0.9% 1000ml Bag) 1,000 ml @ 400 mls/hr Q2H30M PRN IV PATENCY; Start 06/11/16 at 09:18; Stop 06/11/16 at 21:17; Status DC Info (PHARMACY MONITORING -- do not chart) 1 each PRN DAILY PRN MC SEE COMMENTS ; Start 06/11/16 at 09:30; Status UNV Amlodipine Besylate (Norvasc) 5 mg DAILY PO Last administered on 06/15/16 09: 54; Start 06/12/16 at 12:00 Glimepiride (Amaryl) 2 mg DAILY PO Last administered on 06/15/16 09:52; Start 06/13/16 at 09:00 Insulin Detemir 10 units 10 units QHS SQ Last administered on 06/15/16 21:00; Start 06/13/16 at 21:00 Sodium Chloride (Iv Sodium Chloride 0.9% 1000ml Bag) 1,000 ml @ 1,000 mls/hr Q1H PRN IV hypotension; Start 06/14/16 at 13:02; Stop 06/14/16 at 19:01; Status DC Sodium Chloride (Normal Saline Flush) 10 ml 1X PRN PRN IV AP catheter pack; Start 06/14/16 at 13:15; Stop 06/15/16 at 13:14; Status DC Sodium Chloride (Normal Saline Flush) 10 ml 1X PRN PRN IV [employer] catheter pack; Start 06/14/16 at 13:15; Stop 06/15/16 at 13:14; Status DC Info (PHARMACY MONITORING -- do not chart) 1 each PRN DAILY PRN MC SEE COMMENTS ; Start 06/14/16 at 13:15; Status UNV Info 1 each 1 each PRN DAILY PRN MC SEE COMMENTS; Start 06/14/16 at 13:15; Status UNV Sodium Chloride (Iv Sodium Chloride 0.9% 1000ml Bag) 1,000 ml @ 1,000 mls/hr Q1H PRN IV hypotension; Start 06/16/16 at 07:54; Stop 06/16/16 at 13:53 Diphenhydramine HCl (Benadryl) 25 mg 1X PRN PRN IV ITCHING; Start 06/16/16 at 08:00; Stop 06/17/16 at 07:59 Diphenhydramine HCl (Benadryl) 25 mg 1X PRN PRN IV ITCHING; Start 06/16/16 at 08:00; Stop 06/17/16 at 07:59 Sodium Chloride (Normal Saline Flush) 10 ml 1X PRN PRN IV AP catheter pack; Start 06/16/16 at 08:00; Stop 06/17/16 at 07:59 Sodium Chloride (Normal Saline Flush) 10 ml 1X PRN PRN IV [employer] catheter pack; Start 06/16/16 at 08:00; Stop 06/17/16 at 07:59 Labetalol HCl 10 mg 10 mg PRN Q1HR PRN IVP SBP > 180; Start 06/16/16 at 08:00; Stop 06/17/16 at 07:59 Sodium Chloride (Iv Sodium Chloride 0.9% 1000ml Bag) 1,000 ml @ 400 mls/hr Q2H30M PRN IV PATENCY; Start 06/16/16 at 07:54; Stop 06/16/16 at 19:53 Info (PHARMACY MONITORING -- do not chart) 1 each PRN DAILY PRN MC SEE COMMENTS ; Start 06/16/16 at 08:00; Status UNV Info (PHARMACY MONITORING -- do not chart) 1 each PRN DAILY PRN MC SEE COMMENTS ; Start 06/16/16 at 08:00; Status UNV Active Scripts Active Lisinopril 20 Mg Tablet 20 Mg PO QHS Isosorbide Mononitrate Er (Isosorbide Mononitrate) 30 Mg Tab.er.24h 30 Mg PO DAILY Hydralazine Hcl 50 Mg Tablet 100 Mg PO TID Carvedilol 12.5 Mg Tablet 25 Mg PO BIDWMEALS Atorvastatin Calcium 40 Mg Tablet 80 Mg PO QHS Aspirin Ec (Aspirin) 81 Mg Tablet.dr 81 Mg PO DAILYWBKFT Amlodipine Besylate 5 Mg Tablet 5 Mg PO DAILYWLUN Reported Clopidogrel (Clopidogrel Bisulfate) 75 Mg Tablet 75 Mg PO DAILY Glyburide 5 Mg Tablet 1 Tab PO BIDWMEALS Lisinopril 20 Mg Tablet 1 Tab PO DAILY Vitals/I & O Vital Sign - Last 24 Hours 06/15/16 06/15/16 06/15/16 06/15/16 11:01 15:02 17:09 19:05 Temp 98.1 98.6 98.5 98.1 98.6 98.5 Pulse 67 68 68 70 Resp 20 20 16 B/P 178/76 142/52 142/52 148/49 Pulse Ox 98 96 99 O2 Delivery Room Air Room Air Room Air 06/15/16 06/15/16 06/16/16 06/16/16 20:00 23:00 03:05 07:00 Temp 99.7 98.7 98.4 99.7 98.7 98.4 Pulse 72 67 63 Resp 16 14 18 B/P 142/61 165/56 174/64 Pulse Ox 95 98 94 O2 Delivery Room Air Room Air Nasal Cannula Nasal Cannula 06/16/16 08:00 O2 Delivery Room Air O2 Flow Rate 2.0 Intake and Output 06/15/16 06/15/16 06/16/16 15:00 23:00 07:00 Intake Total 480 ml 300 ml Output Total 300 ml 300 ml 750 ml Balance 180 ml 0 ml -750 ml SELMA LALA MD Jun 16, 2016 10:05
--- NOTE | 2016-06-16 10:29 | PDOC ---
Dialysis Progress Note Dialysis Note Dialysis Note Seen on Hemodialysis, tolerating treatment Okay so far Vitals on Hemodialysis at time of my visit: 191/65 63 16 afeb General Appearance: Awake: Alert Oriented x 2-3 Neck: No JVD or JVP Chest: CTA Dionte Heart: S1 S2 Abdomen - Soft NTND Extremities - No Edema ESRD: Dialysis as below F 180 NR 3.0 Hrs 3 K 2.5 Ca 140 Na 35 HC03 Qb 350 + Qd 500+ Heparin on gtt Units Uf 0-1 Kgs or to dry weight as tolerated May give 25-50 gms of 25% Albumin or NS if needed to maintain Hemodynamic stability Treatment plan reviewed and discussed with cook fish eggs Vitals Vital Signs Vital Signs Date Time Temp Pulse Resp B/P Pulse Ox O2 Delivery O2 Flow Rate FiO2 06/16/16 08:00 Room Air 2.0 06/16/16 07:00 98.4 63 18 174/64 94 98.4 Labs Last Labs Laboratory Tests Test 06/14/16 11:38 06/14/16 13:08 06/14/16 17:31 06/14/16 20:32 Glucose (Fingerstick) 268mg/dL (70-99) 235mg/dL (70-99) 165mg/dL (70-99) 311mg/dL (70-99) Test 06/15/16 08:11 06/15/16 10:45 06/15/16 16:44 06/15/16 20:35 Glucose (Fingerstick) 178mg/dL (70-99) 310mg/dL (70-99) 264mg/dL (70-99) 276mg/dL (70-99) Test 06/16/16 08:20 Sodium Level 142mmol/L (136-145) Potassium Level 4.3mmol/L (3.5-5.1) Chloride Level 105mmol/L (98-107) Carbon Dioxide Level 28mmol/L (21-32) Anion Gap 9 (6-14) Blood Urea Nitrogen 37mg/dL (7-20) Creatinine 3.2mg/dL (0.6-1.0) Estimated GFR (Cockcroft-Gault) 14.8 Glucose Level 165mg/dL (70-99) Calcium Level 8.0mg/dL (8.5-10.1) Laboratory Tests Test 06/15/16 10:45 06/15/16 16:44 06/15/16 20:35 06/16/16 08:20 Glucose (Fingerstick) 310mg/dL (70-99) 264mg/dL (70-99) 276mg/dL (70-99) Sodium Level 142mmol/L (136-145) Potassium Level 4.3mmol/L (3.5-5.1) Chloride Level 105mmol/L (98-107) Carbon Dioxide Level 28mmol/L (21-32) Anion Gap 9 (6-14) Blood Urea Nitrogen 37mg/dL (7-20) Creatinine 3.2mg/dL (0.6-1.0) Estimated GFR (Cockcroft-Gault) 14.8 Glucose Level 165mg/dL (70-99) Calcium Level 8.0mg/dL (8.5-10.1) Assessment Assessment Problems Medical Problems: (1) Congestive heart failure Status: Acute (2) NSTEMI (non-ST elevated myocardial infarction) Status: Acute Problems: Plan Plan of Care Problems Medical Problems: (1) Congestive heart failure Status: Acute (2) NSTEMI (non-ST elevated myocardial infarction) Status: Acute PALMA HERNANDEZ MD Jun 16, 2016 10:29
[2016-06-16] MEDS: CYANOCOBALAMIN (VITAMIN B-12) 1,000 MCG TABLET. PO SCH (12:07)
[2016-06-16] MEDS: CARVEDILOL 12.5 MG TABLET PO SCH ×2 (12:07→17:40)
[2016-06-16] MEDS: ASPIRIN ENTERIC COATED 81 MG TABLET.DR. PO SCH (12:07)
[2016-06-16] MEDS: AMLODIPINE BESYLATE 5 MG TABLET PO SCH (12:08)
[2016-06-16] MEDS: GLIMEPIRIDE 2 MG TABLET PO SCH (12:08)
[2016-06-16] MEDS: FERROUS SULFATE 325 MG TABLET PO SCH ×2 (12:08→21:34)
[2016-06-16] MEDS: LISINOPRIL 40 MG TABLET. PO SCH (12:08)
[2016-06-16] MEDS: ISOSORBIDE MONONITRATE ER 30 MG TAB.ER.24H PO SCH (12:09)
[2016-06-16 15:35] VITALS: BP 148/59
[2016-06-16 19:47] VITALS: BP 158/50
[2016-06-16] MEDS: ATORVASTATIN CALCIUM 40 MG TABLET. PO SCH (21:34)
[2016-06-16] MEDS: INSULIN DETEMIR 300 UNITS/3 ML INSULN.PEN. SQ SCH (21:40)
[2016-06-16 23:20] VITALS: BP 149/50
[2016-06-17 03:21] VITALS: BP 149/82
[2016-06-17 07:50] VITALS: BP 168/49
[2016-06-17] MEDS: ASPIRIN ENTERIC COATED 81 MG TABLET.DR. PO SCH (09:34)
[2016-06-17] MEDS: CYANOCOBALAMIN (VITAMIN B-12) 1,000 MCG TABLET. PO SCH (09:35)
[2016-06-17] MEDS: LISINOPRIL 40 MG TABLET. PO SCH (09:35)
[2016-06-17] MEDS: FERROUS SULFATE 325 MG TABLET PO SCH ×2 (09:35→21:00)
[2016-06-17] MEDS: GLIMEPIRIDE 2 MG TABLET PO SCH (09:35)
[2016-06-17] MEDS: CARVEDILOL 12.5 MG TABLET PO SCH ×2 (09:36→18:14)
[2016-06-17] MEDS: AMLODIPINE BESYLATE 5 MG TABLET PO SCH (09:37)
[2016-06-17] MEDS: ISOSORBIDE MONONITRATE ER 30 MG TAB.ER.24H PO SCH (09:40)
[2016-06-17] MEDS: INSULIN ASPART 300 UNITS/3 ML INSULN.PEN SQ SCH ×3 (09:43→18:17)
--- NOTE | 2016-06-17 10:22 | PDOC ---
PROGRESS NOTES Chief Complaint Chief Complaint cc: sob A//P 1. Acute on chronic systolic congestive heart failure. Stable 2. Gol-NS-lwoyorf elevation myocardial infarction. 3. ZORAN with CKD on HD 4. Ischemic cardiomyopathy. 5. Malignant hypertension, Better 6. Anemia 7. Hyperlipidemia. 8. Psoriasis. 9. CAD 10. Anemia 11. UTI not POA 12. DM2 Plan HD per nephrology monitor hemoglobin BP stable SSI with Haim NUÑEZ to find place for out HD, Labs reviewed. History of Present Illness History of Present Illness doing better no fever no chills no acute events Vitals Vitals Vital Signs Date Time Temp Pulse Resp B/P Pulse Ox O2 Delivery O2 Flow Rate FiO2 06/17/16 09:40 69 168/49 06/17/16 07:50 98.6 17 98 Room Air 98.6 06/16/16 08:00 2.0 Physical Exam General: Alert, Oriented X3 Heart: Regular rate, Normal S1, Normal S2, No murmurs, Gallops Lungs: Clear, Other Abdomen: Normal bowel sounds, Soft, No tenderness, No hepatosplenomegaly, No masses Extremities: No clubbing, No cyanosis, No edema, Normal pulses, No tenderness/ swelling Skin: No breakdown, No significant lesion, Other (psoriasis ) Labs LABS Laboratory Tests Test 06/16/16 12:05 06/16/16 16:48 06/16/16 21:00 06/17/16 07:59 Glucose (Fingerstick) 124mg/dL (70-99) 283mg/dL (70-99) 203mg/dL (70-99) 227mg/dL (70-99) Assessment and Plan Assessmemt and Plan Problems Medical Problems: (1) Congestive heart failure Status: Acute (2) NSTEMI (non-ST elevated myocardial infarction) Status: Acute Problems: Comment Review of Relevant I have reviewed the following items fede (where applicable) has been applied. Labs Laboratory Tests Test 06/15/16 10:45 06/15/16 16:44 06/15/16 20:35 06/16/16 07:51 Glucose (Fingerstick) 310mg/dL (70-99) 264mg/dL (70-99) 276mg/dL (70-99) 176mg/dL (70-99) Test 06/16/16 08:20 06/16/16 12:05 06/16/16 16:48 06/16/16 21:00 Sodium Level 142mmol/L (136-145) Potassium Level 4.3mmol/L (3.5-5.1) Chloride Level 105mmol/L (98-107) Carbon Dioxide Level 28mmol/L (21-32) Anion Gap 9 (6-14) Blood Urea Nitrogen 37mg/dL (7-20) Creatinine 3.2mg/dL (0.6-1.0) Estimated GFR (Cockcroft-Gault) 14.8 Glucose Level 165mg/dL (70-99) Calcium Level 8.0mg/dL (8.5-10.1) Glucose (Fingerstick) 124mg/dL (70-99) 283mg/dL (70-99) 203mg/dL (70-99) Test 06/17/16 07:59 Glucose (Fingerstick) 227mg/dL (70-99) Laboratory Tests Test 06/16/16 12:05 06/16/16 16:48 06/16/16 21:00 06/17/16 07:59 Glucose (Fingerstick) 124mg/dL (70-99) 283mg/dL (70-99) 203mg/dL (70-99) 227mg/dL (70-99) Microbiology 06/04/16 Blood Culture - Final, Complete NO GROWTH AFTER 5 DAYS 06/06/16 Urine Culture - Final, Complete 06/06/16 Urine Culture Result 1 (KUSHAL) - Final, Complete Medications Current Medications Aspirin 324 mg 324 mg 1X ONCE PO Last administered on 06/01/16 12:59; Start at 12:45; Stop 06/01/16 at 12:48; Status DC Heparin Sodium/ Dextrose 500 ml @ 19 mls/hr CONT PRN IV SEE I/O RECORD Last administered on 06/02/16 14:45; Start 06/01/16 at 12:45; Stop 06/03/16 at 15:30; Status DC Heparin Sodium (Porcine) 1,950 unit PRN Q6HRS PRN IV FOR UFH LEVEL LESS THAN 0.2 Last administered on 06/01/16 13:01; Start 06/01/16 at 12:45; Stop 06/03/16 at 15:30; Status DC Ondansetron HCl (Zofran) 4 mg PRN Q8HRS PRN IV NAUSEA/VOMITING; Start 06/01/16 at 12:45; Stop 06/02/16 at 12:44; Status DC Morphine Sulfate 4 mg PRN Q2HR PRN IV PAIN Last administered on 06/01/16 14:03 ; Start 06/01/16 at 12:45; Stop 06/02/16 at 12:44; Status DC Nitroglycerin (Nitrostat) 0.4 mg PRN Q5MIN PRN SL CHEST PAIN Last administered on 06/01/16 14:03; Start 06/01/16 at 12:45; Stop 06/02/16 at 12:44; Status DC Amlodipine Besylate (Norvasc) 5 mg DAILYWLUN PO Last administered on 06/02/16 08:32; Start 06/01/16 at 14:00; Stop 06/02/16 at 16:02; Status DC Aspirin (Ecotrin) 81 mg DAILYWBKFT PO Last administered on 06/17/16 09:34; Start 06/01/16 at 14:00 Atorvastatin Calcium (Lipitor) 80 mg QHS PO Last administered on 06/16/16 21: 34; Start 06/01/16 at 21:00 Carvedilol (Coreg) 25 mg BIDWMEALS PO Last administered on 06/17/16 09:36; Start 06/01/16 at 17:00 Clopidogrel Bisulfate (Plavix) 75 mg DAILY PO Last administered on 06/01/16 14: 28; Start 06/01/16 at 14:00; Stop 06/02/16 at 08:41; Status DC Isosorbide Mononitrate (Imdur) 30 mg DAILY PO Last administered on 06/17/16 09 :40; Start 06/01/16 at 14:00 Furosemide (Lasix) 40 mg 1X ONCE IVP Last administered on 06/01/16 14:30; Start 06/01/16 at 14:00; Stop 06/01/16 at 14:23; Status DC Furosemide 40 mg 40 mg 1X ONCE IVP Last administered on 06/01/16 14:30; Start 06/01/16 at 14:30; Stop 06/01/16 at 14:38; Status DC Nitroglycerin/ Dextrose (Nitroglycerin Drip) 250 ml @ 0 mls/hr CONT PRN IV SEE I/O RECORD Last administered on 06/01/16 15:23; Start 06/01/16 at 14:30; Stop 06/02/16 at 16:02; Status DC Acetaminophen (Tylenol) 325 mg PRN Q6HRS PRN PO MILD PAIN / TEMP Last administered on 06/07/16 21:59; Start 06/01/16 at 15:00 Acetaminophen/ Hydrocodone Bitart (Lortab 5/325) 1 tab PRN Q6HRS PRN PO MODERATE TO SEVERE PAIN Last administered on 06/09/16 21:18; Start 06/01/16 at 15:00 Hydralazine HCl (Apresoline) 10 mg PRN Q4HRS PRN IVP ELEVATED BP, SEE COMMENTS Last administered on 06/14/16 11:16; Start 06/01/16 at 15:00 Ondansetron HCl (Zofran) 4 mg PRN Q8HRS PRN IV NAUSEA/VOMITING; Start 06/01/16 at 15:00 Albuterol Sulfate (Ventolin Neb Soln) 2.5 mg PRN Q4HRS PRN NEB SHORTNESS OF BREATH; Start 06/01/16 at 15:00 Insulin Aspart (Novolog) 0-7 UNITS TIDWMEALS SQ Last administered on 06/17/16 09:43; Start 06/01/16 at 17:00 Dextrose 12.5 gm PRN Q15MIN PRN IV SEE COMMENTS; Start 06/01/16 at 15:00 Info 1 each 1 each PRN DAILY PRN MC SEE COMMENTS Last administered on 06/03/16 09:38; Start 06/01/16 at 17:00; Stop 06/04/16 at 08:25; Status DC Magnesium Sulfate/ Dextrose (Magnesium Sulfate PREMIX 2GM) 50 ml @ 25 mls/hr PRN DAILY PRN IV for Mag < 1.7 on am labs; Start 06/02/16 at 11:15 Lidocaine/Sodium Bicarbonate (Buffered Lidocaine 1%) 3 ml 1X ONCE IJ Last administered on 06/02/16 14:03; Start 06/02/16 at 12:30; Stop 06/02/16 at 12:34; Status DC Heparin Sodium (Porcine) 2,400 unit 1X ONCE INT CAT Last administered on 14:04; Start 06/02/16 at 12:30; Stop 06/02/16 at 12:34; Status DC Heparin Sodium/ Sodium Chloride 60 unit 1X ONCE IV Last administered on 14:04; Start 06/02/16 at 12:30; Stop 06/02/16 at 12:34; Status DC Lisinopril (Prinivil) 20 mg DAILY PO Last administered on 06/06/16 09:22; Start 06/02/16 at 16:00; Stop 06/07/16 at 10:31; Status DC Hydralazine HCl 50 mg 50 mg BID PO Last administered on 06/06/16 20:55; Start 06/02/16 at 21:00; Stop 06/07/16 at 10:31; Status DC Sodium Chloride (Iv Sodium Chloride 0.9% 1000ml Bag) 1,000 ml @ 1,000 mls/hr Q1H PRN IV hypotension; Start 06/02/16 at 18:28; Stop 06/03/16 at 00:27; Status DC Diphenhydramine HCl (Benadryl) 25 mg 1X PRN PRN IV ITCHING; Start 06/02/16 at 18 :30; Stop 06/03/16 at 18:29; Status DC Diphenhydramine HCl (Benadryl) 25 mg 1X PRN PRN IV ITCHING; Start 06/02/16 at 18 :30; Stop 06/03/16 at 18:29; Status DC Sodium Chloride (Normal Saline Flush) 10 ml 1X PRN PRN IV AP catheter pack; Start 06/02/16 at 18:30; Stop 06/03/16 at 18:29; Status DC Sodium Chloride 10 ml 10 ml 1X PRN PRN IV SENIOR DATABASE ADMINISTRATOR catheter pack; Start 06/02/16 at 18 :30; Stop 06/03/16 at 18:29; Status DC Sodium Chloride (Iv Sodium Chloride 0.9% 1000ml Bag) 1,000 ml @ 400 mls/hr Q2H30M PRN IV PATENCY; Start 06/02/16 at 18:28; Stop 06/03/16 at 06:27; Status DC Info (PHARMACY MONITORING -- do not chart) 1 each PRN DAILY PRN MC SEE COMMENTS ; Start 06/02/16 at 18:30 Info (PHARMACY MONITORING -- do not chart) 1 each PRN DAILY PRN MC SEE COMMENTS ; Start 06/03/16 at 10:30; Status UNV Info (PHARMACY MONITORING -- do not chart) 1 each PRN DAILY PRN MC SEE COMMENTS ; Start 06/03/16 at 10:30; Status Cancel Darbepoetin Malick (Aranesp) 60 mcg WEEKLYHS SQ Last administered on 06/10/16t 20 :53; Start 06/03/16 at 21:00 Clopidogrel Bisulfate (Plavix) 75 mg DAILYWBKFT PO ; Start 06/04/16 at 08:00; Stop 06/04/16 at 08:00; Status DC Clopidogrel Bisulfate 75 mg 75 mg DAILYWBKFT PO Last administered on 06/04/16 08:25; Start 06/03/16 at 15:30; Stop 06/05/16 at 18:54; Status DC Sodium Chloride (Iv Sodium Chloride 0.9% 1000ml Bag) 1,000 ml @ 1,000 mls/hr Q1H PRN IV hypotension; Start 06/04/16 at 08:11; Stop 06/04/16 at 15:00; Status DC Diphenhydramine HCl (Benadryl) 25 mg 1X PRN PRN IV ITCHING; Start 06/04/16 at 08:15; Stop 06/04/16 at 15:00; Status DC Diphenhydramine HCl (Benadryl) 25 mg 1X PRN PRN IV ITCHING; Start 06/04/16 at 08:15; Stop 06/04/16 at 15:00; Status DC Sodium Chloride (Normal Saline Flush) 10 ml 1X PRN PRN IV AP catheter pack; Start 06/04/16 at 08:15; Stop 06/04/16 at 15:00; Status DC Sodium Chloride 10 ml 10 ml 1X PRN PRN IV SENIOR DATABASE ADMINISTRATOR catheter pack; Start 06/04/16 at 08:15; Stop 06/04/16 at 15:00; Status DC Sodium Chloride (Iv Sodium Chloride 0.9% 1000ml Bag) 1,000 ml @ 400 mls/hr Q2H30M PRN IV PATENCY; Start 06/04/16 at 08:11; Stop 06/04/16 at 21:00; Status DC Info 1 each 1 each PRN DAILY PRN MC SEE COMMENTS; Start 06/04/16 at 08:15; Status UNV Magnesium Sulfate/ Dextrose 100 ml @ 100 mls/hr 1X ONCE IV Last administered on 06/04/16 12:36; Start 06/04/16 at 10:30; Stop 06/04/16 at 11:29; Status DC Ceftriaxone Sodium 1 gm/ Sodium Chloride 50 ml @ 100 mls/hr Q24H IV Last administered on 06/09/16 17:35; Start 06/06/16 at 16:00; Stop 06/10/16 at 15:02 ; Status DC Sodium Chloride 1,000 ml @ 1,000 mls/hr Q1H PRN IV hypotension; Start 06/07/16 at 08:48; Stop 06/07/16 at 14:47; Status DC Sodium Chloride (Iv Sodium Chloride 0.9% 1000ml Bag) 1,000 ml @ 400 mls/hr Q2H30M PRN IV PATENCY; Start 06/07/16 at 08:48; Stop 06/07/16 at 20:47; Status DC Info (PHARMACY MONITORING -- do not chart) 1 each PRN DAILY PRN MC SEE COMMENTS ; Start 06/07/16 at 09:00; Status UNV Lisinopril (Prinivil) 40 mg DAILY PO Last administered on 06/17/16 09:35; Start 06/08/16 at 09:00 Cyanocobalamin (Vitamin B-12) 1,000 mcg DAILY PO Last administered on 09:35; Start 06/07/16 at 15:30 Ferrous Sulfate (Feosol) 325 mg BID PO Last administered on 06/17/16 09:35; Start 06/07/16 at 21:00 Heparin Sodium (Porcine) 10,000 unit STK-MED ONCE .ROUTE ; Start 06/08/16 at 17: 14; Stop 06/08/16 at 17:15; Status DC Lidocaine/ Epinephrine 20 ml 20 ml STK-MED ONCE .ROUTE ; Start 06/08/16 at 17:14 ; Stop 06/08/16 at 17:15; Status DC Heparin Sodium/ Sodium Chloride 500 ml @ As Directed STK-MED ONCE .ROUTE ; Start 06/08/16 at 17:14; Stop 06/08/16 at 17:15; Status DC Fentanyl Citrate (Fentanyl 2ml Vial) 100 mcg STK-MED ONCE .ROUTE ; Start at 17:35; Stop 06/08/16 at 17:36; Status DC Midazolam HCl 2 mg 2 mg STK-MED ONCE .ROUTE ; Start 06/08/16 at 17:35; Stop at 17:36; Status DC Cefazolin Sodium (Ancef 1gm Ivpb For Omni) 50 ml @ As Directed STK-MED ONCE IV ; Start 06/08/16 at 17:36; Stop 06/08/16 at 17:37; Status DC Heparin Sodium/ Sodium Chloride 1,000 unit 1X ONCE IART Last administered on 18:04; Start 06/08/16 at 18:00; Stop 06/08/16 at 18:02; Status DC Midazolam HCl (Versed) 2 mg 1X ONCE IV Last administered on 06/08/16 18:04; Start 06/08/16 at 18:00; Stop 06/08/16 at 18:02; Status DC Fentanyl Citrate (Fentanyl 2ml Vial) 100 mcg 1X ONCE IV Last administered on 18:04; Start 06/08/16 at 18:00; Stop 06/08/16 at 18:02; Status DC Heparin Sodium (Porcine) 4300 unit 4,300 unit 1X ONCE IV Last administered on 06/08/16 18:05; Start 06/08/16 at 18:00; Stop 06/08/16 at 18:02; Status DC Cefazolin Sodium (Ancef 1gm Ivpb For Omni) 50 ml @ 100 mls/hr 1X ONCE IV Last administered on 06/08/16 18:06; Start 06/08/16 at 18:00; Stop 06/08/16 at 18:29; Status DC Lidocaine/ Epinephrine 10 ml 10 ml 1X ONCE IJ Last administered on 06/08/16 18:05; Start 06/08/16 at 18:00; Stop 06/08/16 at 18:02; Status DC Sodium Chloride 1,000 ml @ 1,000 mls/hr Q1H PRN IV hypotension; Start 06/09/16 at 14:32; Stop 06/09/16 at 20:31; Status DC Albumin Human (Albuminar) 200 ml @ 200 mls/hr 1X PRN PRN IV Hypotension; Start 06/09/16 at 14:45; Stop 06/09/16 at 20:44; Status DC Sodium Chloride (Normal Saline Flush) 10 ml 1X PRN PRN IV AP catheter pack; Start 06/09/16 at 14:45; Stop 06/10/16 at 14:44; Status DC Sodium Chloride 10 ml 10 ml 1X PRN PRN IV SENIOR DATABASE ADMINISTRATOR catheter pack; Start 06/09/16 at 14:45; Stop 06/10/16 at 14:44; Status DC Sodium Chloride (Iv Sodium Chloride 0.9% 1000ml Bag) 1,000 ml @ 400 mls/hr Q2H30M PRN IV PATENCY; Start 06/09/16 at 14:32; Stop 06/10/16 at 02:31; Status DC Glimepiride 1 mg 1 mg DAILY PO Last administered on 06/12/16t 09:28; Start at 17:00; Stop 06/12/16 at 13:46; Status DC Sodium Chloride (Iv Sodium Chloride 0.9% 1000ml Bag) 1,000 ml @ 1,000 mls/hr Q1H PRN IV hypotension; Start 06/11/16 at 09:18; Stop 06/11/16 at 15:17; Status DC Acetaminophen (Tylenol) 500 mg 1X PRN PRN PO MILD PAIN / TEMP; Start 06/11/16 at 09:30; Stop 06/12/16 at 09:29; Status DC Diphenhydramine HCl (Benadryl) 25 mg 1X PRN PRN IV ITCHING; Start 06/11/16 at 09:30; Stop 06/12/16 at 09:29; Status DC Diphenhydramine HCl (Benadryl) 25 mg 1X PRN PRN IV ITCHING; Start 06/11/16 at 09:30; Stop 06/12/16 at 09:29; Status DC Sodium Chloride (Normal Saline Flush) 10 ml 1X PRN PRN IV AP catheter pack; Start 06/11/16 at 09:30; Stop 06/12/16 at 09:29; Status DC Sodium Chloride (Normal Saline Flush) 10 ml 1X PRN PRN IV SENIOR DATABASE ADMINISTRATOR catheter pack; Start 06/11/16 at 09:30; Stop 06/12/16 at 09:29; Status DC Labetalol HCl 10 mg 10 mg PRN Q1HR PRN IVP SBP > 180; Start 06/11/16 at 09:30; Stop 06/12/16 at 09:29; Status DC Sodium Chloride (Iv Sodium Chloride 0.9% 1000ml Bag) 1,000 ml @ 400 mls/hr Q2H30M PRN IV PATENCY; Start 06/11/16 at 09:18; Stop 06/11/16 at 21:17; Status DC Info (PHARMACY MONITORING -- do not chart) 1 each PRN DAILY PRN MC SEE COMMENTS ; Start 06/11/16 at 09:30; Status UNV Amlodipine Besylate (Norvasc) 5 mg DAILY PO Last administered on 06/17/16 09: 37; Start 06/12/16 at 12:00 Glimepiride (Amaryl) 2 mg DAILY PO Last administered on 06/17/16 09:35; Start 06/13/16 at 09:00 Insulin Detemir 10 units 10 units QHS SQ Last administered on 06/16/16 21:40; Start 06/13/16 at 21:00 Sodium Chloride (Iv Sodium Chloride 0.9% 1000ml Bag) 1,000 ml @ 1,000 mls/hr Q1H PRN IV hypotension; Start 06/14/16 at 13:02; Stop 06/14/16 at 19:01; Status DC Sodium Chloride (Normal Saline Flush) 10 ml 1X PRN PRN IV AP catheter pack; Start 06/14/16 at 13:15; Stop 06/15/16 at 13:14; Status DC Sodium Chloride (Normal Saline Flush) 10 ml 1X PRN PRN IV SENIOR DATABASE ADMINISTRATOR catheter pack; Start 06/14/16 at 13:15; Stop 06/15/16 at 13:14; Status DC Info (PHARMACY MONITORING -- do not chart) 1 each PRN DAILY PRN MC SEE COMMENTS ; Start 06/14/16 at 13:15; Status UNV Info 1 each 1 each PRN DAILY PRN MC SEE COMMENTS; Start 06/14/16 at 13:15; Status UNV Sodium Chloride (Iv Sodium Chloride 0.9% 1000ml Bag) 1,000 ml @ 1,000 mls/hr Q1H PRN IV hypotension; Start 06/16/16 at 07:54; Stop 06/16/16 at 13:53; Status DC Diphenhydramine HCl (Benadryl) 25 mg 1X PRN PRN IV ITCHING; Start 06/16/16 at 08:00; Stop 06/17/16 at 07:59; Status DC Diphenhydramine HCl (Benadryl) 25 mg 1X PRN PRN IV ITCHING; Start 06/16/16 at 08:00; Stop 06/17/16 at 07:59; Status DC Sodium Chloride (Normal Saline Flush) 10 ml 1X PRN PRN IV AP catheter pack; Start 06/16/16 at 08:00; Stop 06/17/16 at 07:59; Status DC Sodium Chloride (Normal Saline Flush) 10 ml 1X PRN PRN IV SENIOR DATABASE ADMINISTRATOR catheter pack; Start 06/16/16 at 08:00; Stop 06/17/16 at 07:59; Status DC Labetalol HCl 10 mg 10 mg PRN Q1HR PRN IVP SBP > 180 Last administered on t 11:04; Start 06/16/16 at 08:00; Stop 06/17/16 at 07:59; Status DC Sodium Chloride (Iv Sodium Chloride 0.9% 1000ml Bag) 1,000 ml @ 400 mls/hr Q2H30M PRN IV PATENCY; Start 06/16/16 at 07:54; Stop 06/16/16 at 19:53; Status DC Info (PHARMACY MONITORING -- do not chart) 1 each PRN DAILY PRN MC SEE COMMENTS ; Start 06/16/16 at 08:00; Status UNV Info (PHARMACY MONITORING -- do not chart) 1 each PRN DAILY PRN MC SEE COMMENTS ; Start 06/16/16 at 08:00; Status UNV Active Scripts Active Lisinopril 20 Mg Tablet 20 Mg PO QHS Isosorbide Mononitrate Er (Isosorbide Mononitrate) 30 Mg Tab.er.24h 30 Mg PO DAILY Hydralazine Hcl 50 Mg Tablet 100 Mg PO TID Carvedilol 12.5 Mg Tablet 25 Mg PO BIDWMEALS Atorvastatin Calcium 40 Mg Tablet 80 Mg PO QHS Aspirin Ec (Aspirin) 81 Mg Tablet.dr 81 Mg PO DAILYWBKFT Amlodipine Besylate 5 Mg Tablet 5 Mg PO DAILYWLUN Reported Clopidogrel (Clopidogrel Bisulfate) 75 Mg Tablet 75 Mg PO DAILY Glyburide 5 Mg Tablet 1 Tab PO BIDWMEALS Lisinopril 20 Mg Tablet 1 Tab PO DAILY Vitals/I & O Vital Sign - Last 24 Hours 06/16/16 06/16/16 06/16/16 06/16/16 11:04 12:07 12:08 12:08 Pulse 62 62 62 62 B/P 180/72 180/72 180/72 180/72 06/16/16 06/16/16 06/16/16 06/16/16 12:09 15:35 17:40 19:47 Temp 98.8 99.4 98.8 99.4 Pulse 62 68 68 75 Resp 20 20 B/P 180/72 148/59 148/59 158/50 Pulse Ox 96 99 O2 Delivery Room Air Room Air 06/16/16 06/16/16 06/17/16 06/17/16 20:15 23:20 03:21 07:50 Temp 98.7 98.7 98.6 98.7 98.7 98.6 Pulse 69 69 69 Resp 18 18 17 B/P 149/50 149/82 168/49 Pulse Ox 98 98 98 O2 Delivery Room Air Room Air Room Air Room Air 06/17/16 06/17/16 06/17/16 06/17/16 09:35 09:36 09:37 09:40 Pulse 69 69 69 69 B/P 168/49 168/49 168/49 168/49 Intake and Output 06/16/16 06/16/16 06/17/16 15:00 23:00 07:00 Intake Total 620 ml Output Total 550 ml 450 ml Balance 70 ml -450 ml SELMA LALA MD Jun 17, 2016 10:21
[2016-06-17 11:06] VITALS: BP 156/56
[2016-06-17] MEDS: BENZOCAINE/MENTHOL LOZENGE. PO PRN ×2 (11:19→21:01)
[2016-06-17] MEDS: AMLODIPINE BESYLATE 10 MG TABLET PO SCH (11:22)
[2016-06-17 12:53] LABS: NEGATIVE OBC STREP NEG; POSITIVE OBC STREP POS
[2016-06-17 14:26] VITALS: BP 150/53
[2016-06-17 19:40] VITALS: BP 141/50
[2016-06-17] MEDS: ACETAMINOPHEN 325 MG TABLET. PO PRN (21:00)
[2016-06-17] MEDS: ATORVASTATIN CALCIUM 40 MG TABLET. PO SCH (21:01)
[2016-06-17] MEDS: DARBEPOETIN ALFA 60 MCG/0.3 ML DISP.SYRIN. SQ SCH (21:04)
[2016-06-17] MEDS: INSULIN DETEMIR 300 UNITS/3 ML INSULN.PEN. SQ SCH (21:07)
[2016-06-17 23:05] VITALS: BP 146/53
[2016-06-18 03:42] VITALS: BP 139/60
[2016-06-18] MEDS ORDERED: IV NORMAL SALINE 1000ML BAG 1,000 ML IV PRN ×2 (07:44)
[2016-06-18] MEDS ORDERED: 0.9 % SODIUM CHLORIDE 10 ML DISP.SYRIN. IV PRN ×2 (07:45)
[2016-06-18] MEDS ORDERED: CLONIDINE HCL 0.1 MG TABLET PO PRN (07:45)
[2016-06-18] MEDS ORDERED: DIPHENHYDRAMINE 50 MG/ML VIAL IV PRN ×2 (07:45)
[2016-06-18] MEDS ORDERED: DIALYSIS PATIENT. MC PRN (07:45)
[2016-06-18] MEDS: INSULIN ASPART 300 UNITS/3 ML INSULN.PEN SQ SCH ×3 (08:00→17:00)
--- NOTE | 2016-06-18 09:40 | PDOC ---
Dialysis Progress Note Dialysis Note Dialysis Note Seen on Hemodialysis, tolerating treatment Okay so far Vitals on Hemodialysis at time of my visit: 188/76 (just got labetalol) 76 99.8 General Appearance: Awake: Alert Oriented x 2-3 Neck: No JVD or JVP Chest: CTA Dionte Heart: S1 S2 Abdomen - Soft NTND Extremities - No Edema ESRD: Dialysis as below F 180 NR 3.0 Hrs 3 K 2.5 Ca 140 Na 35 HC03 Qb 350 + Qd 500+ Heparin on gtt Units Uf 0-1 Kgs or to dry weight as tolerated May give 25-50 gms of 25% Albumin or NS if needed to maintain Hemodynamic stability Treatment plan reviewed and discussed with pc maintenance technician Vitals Vital Signs Vital Signs Date Time Temp Pulse Resp B/P Pulse Ox O2 Delivery O2 Flow Rate FiO2 06/18/16 07:30 Room Air 2.0 06/18/16 03:42 99.2 72 16 139/60 97 99.2 Labs Last Labs Laboratory Tests Test 06/16/16 12:05 06/16/16 16:48 06/16/16 21:00 06/17/16 07:59 Glucose (Fingerstick) 124mg/dL (70-99) 283mg/dL (70-99) 203mg/dL (70-99) 227mg/dL (70-99) Test 06/17/16 11:30 06/17/16 11:31 06/17/16 16:53 06/17/16 20:32 Group A Streptococcus Rapid Negative (NEGATIVE) Glucose (Fingerstick) 248mg/dL (70-99) 286mg/dL (70-99) 269mg/dL (70-99) Laboratory Tests Test 06/17/16 11:30 06/17/16 11:31 06/17/16 16:53 06/17/16 20:32 Group A Streptococcus Rapid Negative (NEGATIVE) Glucose (Fingerstick) 248mg/dL (70-99) 286mg/dL (70-99) 269mg/dL (70-99) Assessment Assessment Problems Medical Problems: (1) Congestive heart failure Status: Acute (2) NSTEMI (non-ST elevated myocardial infarction) Status: Acute Problems: Plan Plan of Care Problems Medical Problems: (1) Congestive heart failure Status: Acute (2) NSTEMI (non-ST elevated myocardial infarction) Status: Acute HERNANDEZ,ACHAL K MD Jun 18, 2016 09:40
[2016-06-18] MEDS: LABETALOL 20 MG/4 ML DISP.SYRIN. IVP PRN ×2 (09:43→10:56)
[2016-06-18] MEDS: CYANOCOBALAMIN (VITAMIN B-12) 1,000 MCG TABLET. PO SCH (11:51)
[2016-06-18] MEDS: ISOSORBIDE MONONITRATE ER 30 MG TAB.ER.24H PO SCH (11:52)
[2016-06-18] MEDS: GLIMEPIRIDE 2 MG TABLET PO SCH (11:52)
[2016-06-18] MEDS: LISINOPRIL 40 MG TABLET. PO SCH (11:53)
[2016-06-18] MEDS: FERROUS SULFATE 325 MG TABLET PO SCH ×2 (11:53→21:25)
[2016-06-18] MEDS: AMLODIPINE BESYLATE 10 MG TABLET PO SCH (11:53)
[2016-06-18] MEDS: ASPIRIN ENTERIC COATED 81 MG TABLET.DR. PO SCH (11:53)
[2016-06-18] MEDS: CARVEDILOL 12.5 MG TABLET PO SCH ×2 (11:54→17:00)
--- NOTE | 2016-06-18 12:03 | PDOC ---
PROGRESS NOTES Chief Complaint Chief Complaint cc: sob A//P 1. Acute on chronic systolic congestive heart failure. Stable 2. [id number] elevation myocardial infarction. 3. ZORAN with CKD on HD 4. Ischemic cardiomyopathy. 5. Malignant hypertension, Better 6. Anemia 7. Hyperlipidemia. 8. Psoriasis. 9. CAD 10. Anemia 11. UTI not POA 12. DM2 13. Fevers. Plan Blood cx now , WBC stable. CXR HD per nephrology monitor hemoglobin BP stable SSI with Levemir anticipated DC home once vitals are stable and infection is ruled out. History of Present Illness History of Present Illness doing better no fever no chills no acute events Vitals Vitals Vital Signs Date Time Temp Pulse Resp B/P Pulse Ox O2 Delivery O2 Flow Rate FiO2 06/18/16 11:54 78 155/53 06/18/16 07:30 Room Air 2.0 06/18/16 03:42 99.2 16 97 99.2 Physical Exam General: Alert, Oriented X3 Heart: Regular rate, Normal S1, Normal S2, No murmurs, Gallops Lungs: Clear, Other Abdomen: Normal bowel sounds, Soft, No tenderness, No hepatosplenomegaly, No masses Extremities: No clubbing, No cyanosis, No edema, Normal pulses, No tenderness/ swelling Skin: No breakdown, No significant lesion, Other (psoriasis ) Labs LABS Laboratory Tests Test 06/17/16 16:53 06/17/16 20:32 Glucose (Fingerstick) 286mg/dL (70-99) 269mg/dL (70-99) Assessment and Plan Assessmemt and Plan Problems Medical Problems: (1) Congestive heart failure Status: Acute (2) NSTEMI (non-ST elevated myocardial infarction) Status: Acute Problems: Comment Review of Relevant I have reviewed the following items fede (where applicable) has been applied. Labs Laboratory Tests Test 06/16/16 12:05 06/16/16 16:48 06/16/16 21:00 06/17/16 07:59 Glucose (Fingerstick) 124mg/dL (70-99) 283mg/dL (70-99) 203mg/dL (70-99) 227mg/dL (70-99) Test 06/17/16 11:30 06/17/16 11:31 06/17/16 16:53 06/17/16 20:32 Group A Streptococcus Rapid Negative (NEGATIVE) Glucose (Fingerstick) 248mg/dL (70-99) 286mg/dL (70-99) 269mg/dL (70-99) Laboratory Tests Test 06/17/16 16:53 06/17/16 20:32 Glucose (Fingerstick) 286mg/dL (70-99) 269mg/dL (70-99) Microbiology 06/04/16 Blood Culture - Final, Complete NO GROWTH AFTER 5 DAYS 06/06/16 Urine Culture - Final, Complete 06/06/16 Urine Culture Result 1 (KUSHAL) - Final, Complete Medications Current Medications Aspirin 324 mg 324 mg 1X ONCE PO Last administered on 06/01/16 12:59; Start at 12:45; Stop 06/01/16 at 12:48; Status DC Heparin Sodium/ Dextrose 500 ml @ 19 mls/hr CONT PRN IV SEE I/O RECORD Last administered on 06/02/16 14:45; Start 06/01/16 at 12:45; Stop 06/03/16 at 15:30; Status DC Heparin Sodium (Porcine) 1,950 unit PRN Q6HRS PRN IV FOR UFH LEVEL LESS THAN 0.2 Last administered on 06/01/16 13:01; Start 06/01/16 at 12:45; Stop 06/03/16 at 15:30; Status DC Ondansetron HCl (Zofran) 4 mg PRN Q8HRS PRN IV NAUSEA/VOMITING; Start 06/01/16 at 12:45; Stop 06/02/16 at 12:44; Status DC Morphine Sulfate 4 mg PRN Q2HR PRN IV PAIN Last administered on 06/01/16 14:03 ; Start 06/01/16 at 12:45; Stop 06/02/16 at 12:44; Status DC Nitroglycerin (Nitrostat) 0.4 mg PRN Q5MIN PRN SL CHEST PAIN Last administered on 06/01/16 14:03; Start 06/01/16 at 12:45; Stop 06/02/16 at 12:44; Status DC Amlodipine Besylate (Norvasc) 5 mg DAILYWLUN PO Last administered on 06/02/16 08:32; Start 06/01/16 at 14:00; Stop 06/02/16 at 16:02; Status DC Aspirin (Ecotrin) 81 mg DAILYWBKFT PO Last administered on 06/18/16 11:53; Start 06/01/16 at 14:00 Atorvastatin Calcium (Lipitor) 80 mg QHS PO Last administered on 06/17/16 21: 01; Start 06/01/16 at 21:00 Carvedilol (Coreg) 25 mg BIDWMEALS PO Last administered on 06/18/16 11:54; Start 06/01/16 at 17:00 Clopidogrel Bisulfate (Plavix) 75 mg DAILY PO Last administered on 06/01/16 14: 28; Start 06/01/16 at 14:00; Stop 06/02/16 at 08:41; Status DC Isosorbide Mononitrate (Imdur) 30 mg DAILY PO Last administered on 06/18/16 11 :52; Start 06/01/16 at 14:00 Furosemide (Lasix) 40 mg 1X ONCE IVP Last administered on 06/01/16 14:30; Start 06/01/16 at 14:00; Stop 06/01/16 at 14:23; Status DC Furosemide 40 mg 40 mg 1X ONCE IVP Last administered on 06/01/16 14:30; Start 06/01/16 at 14:30; Stop 06/01/16 at 14:38; Status DC Nitroglycerin/ Dextrose (Nitroglycerin Drip) 250 ml @ 0 mls/hr CONT PRN IV SEE I/O RECORD Last administered on 06/01/16 15:23; Start 06/01/16 at 14:30; Stop 06/02/16 at 16:02; Status DC Acetaminophen (Tylenol) 325 mg PRN Q6HRS PRN PO MILD PAIN / TEMP Last administered on 06/17/16 21:00; Start 06/01/16 at 15:00 Acetaminophen/ Hydrocodone Bitart (Lortab 5/325) 1 tab PRN Q6HRS PRN PO MODERATE TO SEVERE PAIN Last administered on 06/09/16 21:18; Start 06/01/16 at 15:00 Hydralazine HCl (Apresoline) 10 mg PRN Q4HRS PRN IVP ELEVATED BP, SEE COMMENTS Last administered on 06/14/16 11:16; Start 06/01/16 at 15:00 Ondansetron HCl (Zofran) 4 mg PRN Q8HRS PRN IV NAUSEA/VOMITING; Start 06/01/16 at 15:00 Albuterol Sulfate (Ventolin Neb Soln) 2.5 mg PRN Q4HRS PRN NEB SHORTNESS OF BREATH; Start 06/01/16 at 15:00 Insulin Aspart (Novolog) 0-7 UNITS TIDWMEALS SQ Last administered on 06/17/16 18:17; Start 06/01/16 at 17:00 Dextrose 12.5 gm PRN Q15MIN PRN IV SEE COMMENTS; Start 06/01/16 at 15:00 Info 1 each 1 each PRN DAILY PRN MC SEE COMMENTS Last administered on 06/03/16 09:38; Start 06/01/16 at 17:00; Stop 06/04/16 at 08:25; Status DC Magnesium Sulfate/ Dextrose (Magnesium Sulfate PREMIX 2GM) 50 ml @ 25 mls/hr PRN DAILY PRN IV for Mag < 1.7 on am labs; Start 06/02/16 at 11:15 Lidocaine/Sodium Bicarbonate (Buffered Lidocaine 1%) 3 ml 1X ONCE IJ Last administered on 06/02/16 14:03; Start 06/02/16 at 12:30; Stop 06/02/16 at 12:34; Status DC Heparin Sodium (Porcine) 2,400 unit 1X ONCE INT CAT Last administered on 14:04; Start 06/02/16 at 12:30; Stop 06/02/16 at 12:34; Status DC Heparin Sodium/ Sodium Chloride 60 unit 1X ONCE IV Last administered on 14:04; Start 06/02/16 at 12:30; Stop 06/02/16 at 12:34; Status DC Lisinopril (Prinivil) 20 mg DAILY PO Last administered on 06/06/16 09:22; Start 06/02/16 at 16:00; Stop 06/07/16 at 10:31; Status DC Hydralazine HCl 50 mg 50 mg BID PO Last administered on 06/06/16 20:55; Start 06/02/16 at 21:00; Stop 06/07/16 at 10:31; Status DC Sodium Chloride (Iv Sodium Chloride 0.9% 1000ml Bag) 1,000 ml @ 1,000 mls/hr Q1H PRN IV hypotension; Start 06/02/16 at 18:28; Stop 06/03/16 at 00:27; Status DC Diphenhydramine HCl (Benadryl) 25 mg 1X PRN PRN IV ITCHING; Start 06/02/16 at 18 :30; Stop 06/03/16 at 18:29; Status DC Diphenhydramine HCl (Benadryl) 25 mg 1X PRN PRN IV ITCHING; Start 06/02/16 at 18 :30; Stop 06/03/16 at 18:29; Status DC Sodium Chloride (Normal Saline Flush) 10 ml 1X PRN PRN IV AP catheter pack; Start 06/02/16 at 18:30; Stop 06/03/16 at 18:29; Status DC Sodium Chloride 10 ml 10 ml 1X PRN PRN IV TARGET SETTER catheter pack; Start 06/02/16 at 18 :30; Stop 06/03/16 at 18:29; Status DC Sodium Chloride (Iv Sodium Chloride 0.9% 1000ml Bag) 1,000 ml @ 400 mls/hr Q2H30M PRN IV PATENCY; Start 06/02/16 at 18:28; Stop 06/03/16 at 06:27; Status DC Info (PHARMACY MONITORING -- do not chart) 1 each PRN DAILY PRN MC SEE COMMENTS ; Start 06/02/16 at 18:30 Info (PHARMACY MONITORING -- do not chart) 1 each PRN DAILY PRN MC SEE COMMENTS ; Start 06/03/16 at 10:30; Status UNV Info (PHARMACY MONITORING -- do not chart) 1 each PRN DAILY PRN MC SEE COMMENTS ; Start 06/03/16 at 10:30; Status Cancel Darbepoetin Malick (Aranesp) 60 mcg WEEKLYHS SQ Last administered on 06/17/16t 21 :04; Start 06/03/16 at 21:00 Clopidogrel Bisulfate (Plavix) 75 mg DAILYWBKFT PO ; Start 06/04/16 at 08:00; Stop 06/04/16 at 08:00; Status DC Clopidogrel Bisulfate 75 mg 75 mg DAILYWBKFT PO Last administered on 06/04/16 08:25; Start 06/03/16 at 15:30; Stop 06/05/16 at 18:54; Status DC Sodium Chloride (Iv Sodium Chloride 0.9% 1000ml Bag) 1,000 ml @ 1,000 mls/hr Q1H PRN IV hypotension; Start 06/04/16 at 08:11; Stop 06/04/16 at 15:00; Status DC Diphenhydramine HCl (Benadryl) 25 mg 1X PRN PRN IV ITCHING; Start 06/04/16 at 08:15; Stop 06/04/16 at 15:00; Status DC Diphenhydramine HCl (Benadryl) 25 mg 1X PRN PRN IV ITCHING; Start 06/04/16 at 08:15; Stop 06/04/16 at 15:00; Status DC Sodium Chloride (Normal Saline Flush) 10 ml 1X PRN PRN IV AP catheter pack; Start 06/04/16 at 08:15; Stop 06/04/16 at 15:00; Status DC Sodium Chloride 10 ml 10 ml 1X PRN PRN IV TARGET SETTER catheter pack; Start 06/04/16 at 08:15; Stop 06/04/16 at 15:00; Status DC Sodium Chloride (Iv Sodium Chloride 0.9% 1000ml Bag) 1,000 ml @ 400 mls/hr Q2H30M PRN IV PATENCY; Start 06/04/16 at 08:11; Stop 06/04/16 at 21:00; Status DC Info 1 each 1 each PRN DAILY PRN MC SEE COMMENTS; Start 06/04/16 at 08:15; Status UNV Magnesium Sulfate/ Dextrose 100 ml @ 100 mls/hr 1X ONCE IV Last administered on 06/04/16 12:36; Start 06/04/16 at 10:30; Stop 06/04/16 at 11:29; Status DC Ceftriaxone Sodium 1 gm/ Sodium Chloride 50 ml @ 100 mls/hr Q24H IV Last administered on 06/09/16 17:35; Start 06/06/16 at 16:00; Stop 06/10/16 at 15:02 ; Status DC Sodium Chloride 1,000 ml @ 1,000 mls/hr Q1H PRN IV hypotension; Start 06/07/16 at 08:48; Stop 06/07/16 at 14:47; Status DC Sodium Chloride (Iv Sodium Chloride 0.9% 1000ml Bag) 1,000 ml @ 400 mls/hr Q2H30M PRN IV PATENCY; Start 06/07/16 at 08:48; Stop 06/07/16 at 20:47; Status DC Info (PHARMACY MONITORING -- do not chart) 1 each PRN DAILY PRN MC SEE COMMENTS ; Start 06/07/16 at 09:00; Status UNV Lisinopril (Prinivil) 40 mg DAILY PO Last administered on 06/18/16 11:53; Start 06/08/16 at 09:00 Cyanocobalamin (Vitamin B-12) 1,000 mcg DAILY PO Last administered on 11:51; Start 06/07/16 at 15:30 Ferrous Sulfate (Feosol) 325 mg BID PO Last administered on 06/18/16 11:53; Start 06/07/16 at 21:00 Heparin Sodium (Porcine) 10,000 unit STK-MED ONCE .ROUTE ; Start 06/08/16 at 17: 14; Stop 06/08/16 at 17:15; Status DC Lidocaine/ Epinephrine 20 ml 20 ml STK-MED ONCE .ROUTE ; Start 06/08/16 at 17:14 ; Stop 06/08/16 at 17:15; Status DC Heparin Sodium/ Sodium Chloride 500 ml @ As Directed STK-MED ONCE .ROUTE ; Start 06/08/16 at 17:14; Stop 06/08/16 at 17:15; Status DC Fentanyl Citrate (Fentanyl 2ml Vial) 100 mcg STK-MED ONCE .ROUTE ; Start at 17:35; Stop 06/08/16 at 17:36; Status DC Midazolam HCl 2 mg 2 mg STK-MED ONCE .ROUTE ; Start 06/08/16 at 17:35; Stop at 17:36; Status DC Cefazolin Sodium (Ancef 1gm Ivpb For Omni) 50 ml @ As Directed STK-MED ONCE IV ; Start 06/08/16 at 17:36; Stop 06/08/16 at 17:37; Status DC Heparin Sodium/ Sodium Chloride 1,000 unit 1X ONCE IART Last administered on t 18:04; Start 06/08/16 at 18:00; Stop 06/08/16 at 18:02; Status DC Midazolam HCl (Versed) 2 mg 1X ONCE IV Last administered on 06/08/16 18:04; Start 06/08/16 at 18:00; Stop 06/08/16 at 18:02; Status DC Fentanyl Citrate (Fentanyl 2ml Vial) 100 mcg 1X ONCE IV Last administered on 18:04; Start 06/08/16 at 18:00; Stop 06/08/16 at 18:02; Status DC Heparin Sodium (Porcine) 4300 unit 4,300 unit 1X ONCE IV Last administered on 06/08/16 18:05; Start 06/08/16 at 18:00; Stop 06/08/16 at 18:02; Status DC Cefazolin Sodium (Ancef 1gm Ivpb For Omni) 50 ml @ 100 mls/hr 1X ONCE IV Last administered on 06/08/16 18:06; Start 06/08/16 at 18:00; Stop 06/08/16 at 18:29; Status DC Lidocaine/ Epinephrine 10 ml 10 ml 1X ONCE IJ Last administered on 06/08/16 18:05; Start 06/08/16 at 18:00; Stop 06/08/16 at 18:02; Status DC Sodium Chloride 1,000 ml @ 1,000 mls/hr Q1H PRN IV hypotension; Start 06/09/16 at 14:32; Stop 06/09/16 at 20:31; Status DC Albumin Human (Albuminar) 200 ml @ 200 mls/hr 1X PRN PRN IV Hypotension; Start 06/09/16 at 14:45; Stop 06/09/16 at 20:44; Status DC Sodium Chloride (Normal Saline Flush) 10 ml 1X PRN PRN IV AP catheter pack; Start 06/09/16 at 14:45; Stop 06/10/16 at 14:44; Status DC Sodium Chloride 10 ml 10 ml 1X PRN PRN IV TARGET SETTER catheter pack; Start 06/09/16 at 14:45; Stop 06/10/16 at 14:44; Status DC Sodium Chloride (Iv Sodium Chloride 0.9% 1000ml Bag) 1,000 ml @ 400 mls/hr Q2H30M PRN IV PATENCY; Start 06/09/16 at 14:32; Stop 06/10/16 at 02:31; Status DC Glimepiride 1 mg 1 mg DAILY PO Last administered on 2/18/17at 09:28; Start at 17:00; Stop 06/12/16 at 13:46; Status DC Sodium Chloride (Iv Sodium Chloride 0.9% 1000ml Bag) 1,000 ml @ 1,000 mls/hr Q1H PRN IV hypotension; Start 06/11/16 at 09:18; Stop 06/11/16 at 15:17; Status DC Acetaminophen (Tylenol) 500 mg 1X PRN PRN PO MILD PAIN / TEMP; Start 06/11/16 at 09:30; Stop 06/12/16 at 09:29; Status DC Diphenhydramine HCl (Benadryl) 25 mg 1X PRN PRN IV ITCHING; Start 06/11/16 at 09:30; Stop 06/12/16 at 09:29; Status DC Diphenhydramine HCl (Benadryl) 25 mg 1X PRN PRN IV ITCHING; Start 06/11/16 at 09:30; Stop 06/12/16 at 09:29; Status DC Sodium Chloride (Normal Saline Flush) 10 ml 1X PRN PRN IV AP catheter pack; Start 06/11/16 at 09:30; Stop 06/12/16 at 09:29; Status DC Sodium Chloride (Normal Saline Flush) 10 ml 1X PRN PRN IV TARGET SETTER catheter pack; Start 06/11/16 at 09:30; Stop 06/12/16 at 09:29; Status DC Labetalol HCl 10 mg 10 mg PRN Q1HR PRN IVP SBP > 180; Start 06/11/16 at 09:30; Stop 06/12/16 at 09:29; Status DC Sodium Chloride (Iv Sodium Chloride 0.9% 1000ml Bag) 1,000 ml @ 400 mls/hr Q2H30M PRN IV PATENCY; Start 06/11/16 at 09:18; Stop 06/11/16 at 21:17; Status DC Info (PHARMACY MONITORING -- do not chart) 1 each PRN DAILY PRN MC SEE COMMENTS ; Start 06/11/16 at 09:30; Status UNV Amlodipine Besylate (Norvasc) 5 mg DAILY PO Last administered on 06/17/16t 09: 37; Start 06/12/16 at 12:00; Stop 06/17/16 at 10:23; Status DC Glimepiride (Amaryl) 2 mg DAILY PO Last administered on 06/18/16 11:52; Start 06/13/16 at 09:00 Insulin Detemir 10 units 10 units QHS SQ Last administered on 06/17/16 21:07; Start 06/13/16 at 21:00 Sodium Chloride (Iv Sodium Chloride 0.9% 1000ml Bag) 1,000 ml @ 1,000 mls/hr Q1H PRN IV hypotension; Start 06/14/16 at 13:02; Stop 06/14/16 at 19:01; Status DC Sodium Chloride (Normal Saline Flush) 10 ml 1X PRN PRN IV AP catheter pack; Start 06/14/16 at 13:15; Stop 06/15/16 at 13:14; Status DC Sodium Chloride (Normal Saline Flush) 10 ml 1X PRN PRN IV TARGET SETTER catheter pack; Start 06/14/16 at 13:15; Stop 06/15/16 at 13:14; Status DC Info (PHARMACY MONITORING -- do not chart) 1 each PRN DAILY PRN MC SEE COMMENTS ; Start 06/14/16 at 13:15; Status UNV Info 1 each 1 each PRN DAILY PRN MC SEE COMMENTS; Start 06/14/16 at 13:15; Status UNV Sodium Chloride (Iv Sodium Chloride 0.9% 1000ml Bag) 1,000 ml @ 1,000 mls/hr Q1H PRN IV hypotension; Start 06/16/16 at 07:54; Stop 06/16/16 at 13:53; Status DC Diphenhydramine HCl (Benadryl) 25 mg 1X PRN PRN IV ITCHING; Start 06/16/16 at 08:00; Stop 06/17/16 at 07:59; Status DC Diphenhydramine HCl (Benadryl) 25 mg 1X PRN PRN IV ITCHING; Start 06/16/16 at 08:00; Stop 06/17/16 at 07:59; Status DC Sodium Chloride (Normal Saline Flush) 10 ml 1X PRN PRN IV AP catheter pack; Start 06/16/16 at 08:00; Stop 06/17/16 at 07:59; Status DC Sodium Chloride (Normal Saline Flush) 10 ml 1X PRN PRN IV TARGET SETTER catheter pack; Start 06/16/16 at 08:00; Stop 06/17/16 at 07:59; Status DC Labetalol HCl 10 mg 10 mg PRN Q1HR PRN IVP SBP > 180 Last administered on 11:04; Start 06/16/16 at 08:00; Stop 06/17/16 at 07:59; Status DC Sodium Chloride (Iv Sodium Chloride 0.9% 1000ml Bag) 1,000 ml @ 400 mls/hr Q2H30M PRN IV PATENCY; Start 06/16/16 at 07:54; Stop 06/16/16 at 19:53; Status DC Info (PHARMACY MONITORING -- do not chart) 1 each PRN DAILY PRN MC SEE COMMENTS ; Start 06/16/16 at 08:00; Status UNV Info (PHARMACY MONITORING -- do not chart) 1 each PRN DAILY PRN MC SEE COMMENTS ; Start 06/16/16 at 08:00; Status UNV Amlodipine Besylate (Norvasc) 10 mg DAILY PO Last administered on 06/18/16 11: 53; Start 06/17/16 at 11:00 Throat Lozenges 1 whitney 1 whitney PRN Q2HRS PRN PO SORE THROAT Last administered on 21:01; Start 06/17/16 at 11:15 Sodium Chloride (Iv Sodium Chloride 0.9% 1000ml Bag) 1,000 ml @ 1,000 mls/hr Q1H PRN IV hypotension; Start 06/18/16 at 07:44; Stop 06/18/16 at 13:43 Diphenhydramine HCl (Benadryl) 25 mg 1X PRN PRN IV ITCHING; Start 06/18/16 at 07:45; Stop 06/19/16 at 07:44 Diphenhydramine HCl (Benadryl) 25 mg 1X PRN PRN IV ITCHING; Start 06/18/16 at 07:45; Stop 06/19/16 at 07:44 Sodium Chloride (Normal Saline Flush) 10 ml 1X PRN PRN IV AP catheter pack; Start 06/18/16 at 07:45; Stop 06/19/16 at 07:44 Sodium Chloride (Normal Saline Flush) 10 ml 1X PRN PRN IV TARGET SETTER catheter pack; Start 06/18/16 at 07:45; Stop 06/19/16 at 07:44 Labetalol HCl (Normodyne) 10 mg PRN Q1HR PRN IVP SBP > 180 Last administered on 06/18/16 10:56; Start 06/18/16 at 07:45; Stop 06/19/16 at 07:44 Clonidine HCl 0.1 mg 0.1 mg 1X PRN PRN PO SBP > 180 Last administered on 11:03; Start 06/18/16 at 07:45; Stop 06/19/16 at 07:44 Sodium Chloride (Iv Sodium Chloride 0.9% 1000ml Bag) 1,000 ml @ 400 mls/hr Q2H30M PRN IV PATENCY; Start 06/18/16 at 07:44; Stop 06/18/16 at 19:43 Info (PHARMACY MONITORING -- do not chart) 1 each PRN DAILY PRN MC SEE COMMENTS ; Start 06/18/16 at 07:45; Status UNV Active Scripts Active Lisinopril 20 Mg Tablet 20 Mg PO QHS Isosorbide Mononitrate Er (Isosorbide Mononitrate) 30 Mg Tab.er.24h 30 Mg PO DAILY Hydralazine Hcl 50 Mg Tablet 100 Mg PO TID Carvedilol 12.5 Mg Tablet 25 Mg PO BIDWMEALS Atorvastatin Calcium 40 Mg Tablet 80 Mg PO QHS Aspirin Ec (Aspirin) 81 Mg Tablet. 81 Mg PO DAILYWBKFT Amlodipine Besylate 5 Mg Tablet 5 Mg PO DAILYWLUN Reported Clopidogrel (Clopidogrel Bisulfate) 75 Mg Tablet 75 Mg PO DAILY Glyburide 5 Mg Tablet 1 Tab PO BIDWMEALS Lisinopril 20 Mg Tablet 1 Tab PO DAILY Vitals/I & O Vital Sign - Last 24 Hours 06/17/16 06/17/16 06/17/16 06/17/16 14:26 18:14 19:40 20:00 Temp 98.7 100.1 98.7 100.1 Pulse 73 73 82 Resp 18 18 B/P 150/53 150/53 141/50 Pulse Ox 98 97 O2 Delivery Room Air Room Air Room Air 06/17/16 06/18/16 06/18/16 06/18/16 23:05 03:42 07:30 09:43 Temp 99.0 99.2 99.0 99.2 Pulse 85 72 76 Resp 16 16 B/P 146/53 139/60 188/76 Pulse Ox 96 97 O2 Delivery Room Air Room Air Room Air O2 Flow Rate 2.0 06/18/16 06/18/16 06/18/16 06/18/16 10:56 11:03 11:52 11:53 Pulse 76 72 79 72 B/P 197/78 177/70 155/53 155/53 06/18/16 06/18/16 11:53 11:54 Pulse 72 78 B/P 155/53 155/53 Intake and Output 06/17/16 06/17/16 06/18/16 15:00 23:00 07:00 Intake Total 200 ml Output Total 200 ml 200 ml Balance 0 ml -200 ml SELMA LALA MD Jun 18, 2016 12:03
--- NOTE | 2016-06-18 14:23 | RAD ---
Chest, 2 views, 06/18/2016: History: Fever, congestive heart failure, stent placement Comparison is made to a study from 06/02/2016. A right jugular dialysis type catheter extends into the superior aspect of the right atrium. The heart is mildly enlarged. The pulmonary vascularity is normal. No pulmonary infiltrates are seen. There is no evidence of pleural fluid. IMPRESSION: 1. Mild cardiomegaly. 2. No acute abnormality is detected.
[2016-06-18 15:02] VITALS: BP 157/53
[2016-06-18 19:59] VITALS: BP 128/46
[2016-06-18] MEDS: ATORVASTATIN CALCIUM 40 MG TABLET. PO SCH (21:26)
[2016-06-18] MEDS: INSULIN DETEMIR 300 UNITS/3 ML INSULN.PEN. SQ SCH (21:33)
[2016-06-18 21:35] LABS: OBC FLU VALID
[2016-06-18] MEDS ORDERED: IBUPROFEN 400 MG TABLET. PO PRN (22:45)
[2016-06-18 23:39] VITALS: BP 131/48
[2016-06-19 03:20] VITALS: BP 131/48
[2016-06-19 07:00] VITALS: BP 140/54
[2016-06-19] MEDS: INSULIN ASPART 300 UNITS/3 ML INSULN.PEN SQ SCH ×3 (08:00→17:40)
[2016-06-19] MEDS: AMLODIPINE BESYLATE 10 MG TABLET PO SCH (08:52)
[2016-06-19] MEDS: CYANOCOBALAMIN (VITAMIN B-12) 1,000 MCG TABLET. PO SCH (08:52)
[2016-06-19] MEDS: FERROUS SULFATE 325 MG TABLET PO SCH ×2 (08:52→21:04)
[2016-06-19] MEDS: ASPIRIN ENTERIC COATED 81 MG TABLET.DR. PO SCH (08:53)
[2016-06-19] MEDS: LISINOPRIL 40 MG TABLET. PO SCH (08:53)
[2016-06-19] MEDS: ISOSORBIDE MONONITRATE ER 30 MG TAB.ER.24H PO SCH (08:53)
[2016-06-19] MEDS: GLIMEPIRIDE 2 MG TABLET PO SCH (08:53)
[2016-06-19] MEDS: ACETAMINOPHEN 325 MG TABLET. PO PRN ×2 (08:54→17:38)
[2016-06-19] MEDS: CARVEDILOL 12.5 MG TABLET PO SCH ×2 (08:54→17:44)
[2016-06-19 10:56] VITALS: BP 132/44
--- NOTE | 2016-06-19 11:27 | PDOC ---
PROGRESS NOTES Chief Complaint Chief Complaint 1. Acute on chronic systolic congestive heart failure. Stable 2. Vto-ST-lpsture elevation myocardial infarction. 3. ZORAN with CKD on HD 4. Ischemic cardiomyopathy. 5. Malignant hypertension, Better 6. Anemia 7. Hyperlipidemia. 8. Psoriasis. 9. CAD 10. Anemia 11. UTI not POA 12. DM2 13. Fevers. History of Present Illness History of Present Illness Patient awake, alert, and oriented when seen and examined this AM. Pt states that she is doing "better". Family member present and at bedside. Pt denies any current CP or SOA. VSS- All questions and concerns addressed and answered. Vitals Vitals Vital Signs Date Time Temp Pulse Resp B/P Pulse Ox O2 Delivery O2 Flow Rate FiO2 06/19/16 10:56 99.9 70 18 132/44 93 Room Air 99.9 06/18/16 07:30 2.0 Physical Exam General: Alert, Oriented X3, Cooperative, No acute distress Heart: Regular rate, Normal S1, Normal S2, No murmurs, Gallops Lungs: Clear, Other Abdomen: Normal bowel sounds, Soft, No tenderness, No hepatosplenomegaly, No masses Extremities: No clubbing, No cyanosis, No edema, Normal pulses, No tenderness/ swelling Skin: No rashes, No breakdown, No significant lesion, Other (psoriasis ) Labs LABS Laboratory Tests Test 06/18/16 11:58 06/18/16 16:35 06/18/16 18:36 06/18/16 21:29 Glucose (Fingerstick) 122mg/dL (70-99) 253mg/dL (70-99) 264mg/dL (70-99) Influenza Type A Antigen Negative (NEGATIVE) Influenza Type B Antigen Negative (NEGATIVE) Test 06/19/16 07:20 Glucose (Fingerstick) 142mg/dL (70-99) Review of Systems Review of Systems Patient complaint of fatigue Patient complaint of hunger Assessment and Plan Assessmemt and Plan Problems Medical Problems: (1) Congestive heart failure Status: Acute (2) NSTEMI (non-ST elevated myocardial infarction) Status: Acute Assessment: 1. Acute on chronic systolic congestive heart failure. Stable 2. Gni-DI-olsppcu elevation myocardial infarction. 3. ZORAN with CKD on HD 4. Ischemic cardiomyopathy. 5. Malignant hypertension, Better 6. Anemia 7. Hyperlipidemia. 8. Psoriasis. 9. CAD 10. Anemia 11. UTI not POA 12. DM2 13. Fevers. Plan: Continue to monitor the patient per floor protocol Continue daily labs- CBC, BMP, BUN, and Cr Daily PTOT Continue HD Appreciate all subspecialty input and recommendations Discussed with family present DW RN Problems: Comment Review of Relevant I have reviewed the following items fede (where applicable) has been applied. Labs Laboratory Tests Test 06/17/16 11:30 06/17/16 11:31 06/17/16 16:53 06/17/16 20:32 Group A Streptococcus Rapid Negative (NEGATIVE) Glucose (Fingerstick) 248mg/dL (70-99) 286mg/dL (70-99) 269mg/dL (70-99) Test 06/18/16 11:58 06/18/16 16:35 06/18/16 18:36 06/18/16 21:29 Glucose (Fingerstick) 122mg/dL (70-99) 253mg/dL (70-99) 264mg/dL (70-99) Influenza Type A Antigen Negative (NEGATIVE) Influenza Type B Antigen Negative (NEGATIVE) Test 06/19/16 07:20 Glucose (Fingerstick) 142mg/dL (70-99) Laboratory Tests Test 06/18/16 11:58 06/18/16 16:35 06/18/16 18:36 06/18/16 21:29 Glucose (Fingerstick) 122mg/dL (70-99) 253mg/dL (70-99) 264mg/dL (70-99) Influenza Type A Antigen Negative (NEGATIVE) Influenza Type B Antigen Negative (NEGATIVE) Test 06/19/16 07:20 Glucose (Fingerstick) 142mg/dL (70-99) Microbiology 06/04/16 Blood Culture - Final, Complete NO GROWTH AFTER 5 DAYS 06/17/16 Throat Culture - Preliminary, Resulted 06/17/16 - Preliminary, Resulted 06/06/16 Urine Culture - Final, Complete 06/06/16 Urine Culture Result 1 (KUSHAL) - Final, Complete Medications Current Medications Aspirin 324 mg 324 mg 1X ONCE PO Last administered on 06/01/16t 12:59; Start at 12:45; Stop 06/01/16 at 12:48; Status DC Heparin Sodium/ Dextrose 500 ml @ 19 mls/hr CONT PRN IV SEE I/O RECORD Last administered on 06/02/16 14:45; Start 06/01/16 at 12:45; Stop 06/03/16 at 15:30; Status DC Heparin Sodium (Porcine) 1,950 unit PRN Q6HRS PRN IV FOR UFH LEVEL LESS THAN 0.2 Last administered on 06/01/16 13:01; Start 06/01/16 at 12:45; Stop 06/03/16 at 15:30; Status DC Ondansetron HCl (Zofran) 4 mg PRN Q8HRS PRN IV NAUSEA/VOMITING; Start 06/01/16 at 12:45; Stop 06/02/16 at 12:44; Status DC Morphine Sulfate 4 mg PRN Q2HR PRN IV PAIN Last administered on 06/01/16 14:03 ; Start 06/01/16 at 12:45; Stop 06/02/16 at 12:44; Status DC Nitroglycerin (Nitrostat) 0.4 mg PRN Q5MIN PRN SL CHEST PAIN Last administered on 06/01/16 14:03; Start 06/01/16 at 12:45; Stop 06/02/16 at 12:44; Status DC Amlodipine Besylate (Norvasc) 5 mg DAILYWLUN PO Last administered on 06/02/16 08:32; Start 06/01/16 at 14:00; Stop 06/02/16 at 16:02; Status DC Aspirin (Ecotrin) 81 mg DAILYWBKFT PO Last administered on 06/19/16 08:53; Start 06/01/16 at 14:00 Atorvastatin Calcium (Lipitor) 80 mg QHS PO Last administered on 06/18/16 21: 26; Start 06/01/16 at 21:00 Carvedilol (Coreg) 25 mg BIDWMEALS PO Last administered on 06/19/16 08:54; Start 06/01/16 at 17:00 Clopidogrel Bisulfate (Plavix) 75 mg DAILY PO Last administered on 06/01/16 14: 28; Start 06/01/16 at 14:00; Stop 06/02/16 at 08:41; Status DC Isosorbide Mononitrate (Imdur) 30 mg DAILY PO Last administered on 06/19/16 08 :53; Start 06/01/16 at 14:00 Furosemide (Lasix) 40 mg 1X ONCE IVP Last administered on 06/01/16 14:30; Start 06/01/16 at 14:00; Stop 06/01/16 at 14:23; Status DC Furosemide 40 mg 40 mg 1X ONCE IVP Last administered on 06/01/16 14:30; Start 06/01/16 at 14:30; Stop 06/01/16 at 14:38; Status DC Nitroglycerin/ Dextrose (Nitroglycerin Drip) 250 ml @ 0 mls/hr CONT PRN IV SEE I/O RECORD Last administered on 06/01/16 15:23; Start 06/01/16 at 14:30; Stop 06/02/16 at 16:02; Status DC Acetaminophen (Tylenol) 325 mg PRN Q6HRS PRN PO MILD PAIN / TEMP Last administered on 06/19/16 08:54; Start 06/01/16 at 15:00 Acetaminophen/ Hydrocodone Bitart (Lortab 5/325) 1 tab PRN Q6HRS PRN PO MODERATE TO SEVERE PAIN Last administered on 06/09/16 21:18; Start 06/01/16 at 15:00 Hydralazine HCl (Apresoline) 10 mg PRN Q4HRS PRN IVP ELEVATED BP, SEE COMMENTS Last administered on 06/14/16 11:16; Start 06/01/16 at 15:00 Ondansetron HCl (Zofran) 4 mg PRN Q8HRS PRN IV NAUSEA/VOMITING; Start 06/01/16 at 15:00 Albuterol Sulfate (Ventolin Neb Soln) 2.5 mg PRN Q4HRS PRN NEB SHORTNESS OF BREATH; Start 06/01/16 at 15:00 Insulin Aspart (Novolog) 0-7 UNITS TIDWMEALS SQ Last administered on 06/17/16 18:17; Start 06/01/16 at 17:00 Dextrose 12.5 gm PRN Q15MIN PRN IV SEE COMMENTS; Start 06/01/16 at 15:00 Info 1 each 1 each PRN DAILY PRN MC SEE COMMENTS Last administered on 06/03/16 09:38; Start 06/01/16 at 17:00; Stop 06/04/16 at 08:25; Status DC Magnesium Sulfate/ Dextrose (Magnesium Sulfate PREMIX 2GM) 50 ml @ 25 mls/hr PRN DAILY PRN IV for Mag < 1.7 on am labs; Start 06/02/16 at 11:15 Lidocaine/Sodium Bicarbonate (Buffered Lidocaine 1%) 3 ml 1X ONCE IJ Last administered on 06/02/16 14:03; Start 06/02/16 at 12:30; Stop 06/02/16 at 12:34; Status DC Heparin Sodium (Porcine) 2,400 unit 1X ONCE INT CAT Last administered on 14:04; Start 06/02/16 at 12:30; Stop 06/02/16 at 12:34; Status DC Heparin Sodium/ Sodium Chloride 60 unit 1X ONCE IV Last administered on 14:04; Start 06/02/16 at 12:30; Stop 06/02/16 at 12:34; Status DC Lisinopril (Prinivil) 20 mg DAILY PO Last administered on 06/06/16 09:22; Start 06/02/16 at 16:00; Stop 06/07/16 at 10:31; Status DC Hydralazine HCl 50 mg 50 mg BID PO Last administered on 06/06/16 20:55; Start 06/02/16 at 21:00; Stop 06/07/16 at 10:31; Status DC Sodium Chloride (Iv Sodium Chloride 0.9% 1000ml Bag) 1,000 ml @ 1,000 mls/hr Q1H PRN IV hypotension; Start 06/02/16 at 18:28; Stop 06/03/16 at 00:27; Status DC Diphenhydramine HCl (Benadryl) 25 mg 1X PRN PRN IV ITCHING; Start 06/02/16 at 18 :30; Stop 06/03/16 at 18:29; Status DC Diphenhydramine HCl (Benadryl) 25 mg 1X PRN PRN IV ITCHING; Start 06/02/16 at 18 :30; Stop 06/03/16 at 18:29; Status DC Sodium Chloride (Normal Saline Flush) 10 ml 1X PRN PRN IV AP catheter pack; Start 06/02/16 at 18:30; Stop 06/03/16 at 18:29; Status DC Sodium Chloride 10 ml 10 ml 1X PRN PRN IV RAW SCALES OPERATOR catheter pack; Start 06/02/16 at 18 :30; Stop 06/03/16 at 18:29; Status DC Sodium Chloride (Iv Sodium Chloride 0.9% 1000ml Bag) 1,000 ml @ 400 mls/hr Q2H30M PRN IV PATENCY; Start 06/02/16 at 18:28; Stop 06/03/16 at 06:27; Status DC Info (PHARMACY MONITORING -- do not chart) 1 each PRN DAILY PRN MC SEE COMMENTS ; Start 06/02/16 at 18:30 Info (PHARMACY MONITORING -- do not chart) 1 each PRN DAILY PRN MC SEE COMMENTS ; Start 06/03/16 at 10:30; Status UNV Info (PHARMACY MONITORING -- do not chart) 1 each PRN DAILY PRN MC SEE COMMENTS ; Start 06/03/16 at 10:30; Status Cancel Darbepoetin Malick (Aranesp) 60 mcg WEEKLYHS SQ Last administered on 06/17/16 21 :04; Start 06/03/16 at 21:00 Clopidogrel Bisulfate (Plavix) 75 mg DAILYWBKFT PO ; Start 06/04/16 at 08:00; Stop 06/04/16 at 08:00; Status DC Clopidogrel Bisulfate 75 mg 75 mg DAILYWBKFT PO Last administered on 06/04/16 08:25; Start 06/03/16 at 15:30; Stop 06/05/16 at 18:54; Status DC Sodium Chloride (Iv Sodium Chloride 0.9% 1000ml Bag) 1,000 ml @ 1,000 mls/hr Q1H PRN IV hypotension; Start 06/04/16 at 08:11; Stop 06/04/16 at 15:00; Status DC Diphenhydramine HCl (Benadryl) 25 mg 1X PRN PRN IV ITCHING; Start 06/04/16 at 08:15; Stop 06/04/16 at 15:00; Status DC Diphenhydramine HCl (Benadryl) 25 mg 1X PRN PRN IV ITCHING; Start 06/04/16 at 08:15; Stop 06/04/16 at 15:00; Status DC Sodium Chloride (Normal Saline Flush) 10 ml 1X PRN PRN IV AP catheter pack; Start 06/04/16 at 08:15; Stop 06/04/16 at 15:00; Status DC Sodium Chloride 10 ml 10 ml 1X PRN PRN IV RAW SCALES OPERATOR catheter pack; Start 06/04/16 at 08:15; Stop 06/04/16 at 15:00; Status DC Sodium Chloride (Iv Sodium Chloride 0.9% 1000ml Bag) 1,000 ml @ 400 mls/hr Q2H30M PRN IV PATENCY; Start 06/04/16 at 08:11; Stop 06/04/16 at 21:00; Status DC Info 1 each 1 each PRN DAILY PRN MC SEE COMMENTS; Start 06/04/16 at 08:15; Status UNV Magnesium Sulfate/ Dextrose 100 ml @ 100 mls/hr 1X ONCE IV Last administered on 06/04/16 12:36; Start 06/04/16 at 10:30; Stop 06/04/16 at 11:29; Status DC Ceftriaxone Sodium 1 gm/ Sodium Chloride 50 ml @ 100 mls/hr Q24H IV Last administered on 06/09/16 17:35; Start 06/06/16 at 16:00; Stop 06/10/16 at 15:02 ; Status DC Sodium Chloride 1,000 ml @ 1,000 mls/hr Q1H PRN IV hypotension; Start 06/07/16 at 08:48; Stop 06/07/16 at 14:47; Status DC Sodium Chloride (Iv Sodium Chloride 0.9% 1000ml Bag) 1,000 ml @ 400 mls/hr Q2H30M PRN IV PATENCY; Start 06/07/16 at 08:48; Stop 06/07/16 at 20:47; Status DC Info (PHARMACY MONITORING -- do not chart) 1 each PRN DAILY PRN MC SEE COMMENTS ; Start 06/07/16 at 09:00; Status UNV Lisinopril (Prinivil) 40 mg DAILY PO Last administered on 06/19/16 08:53; Start 06/08/16 at 09:00 Cyanocobalamin (Vitamin B-12) 1,000 mcg DAILY PO Last administered on 08:52; Start 06/07/16 at 15:30 Ferrous Sulfate (Feosol) 325 mg BID PO Last administered on 06/19/16 08:52; Start 06/07/16 at 21:00 Heparin Sodium (Porcine) 10,000 unit STK-MED ONCE .ROUTE ; Start 06/08/16 at 17: 14; Stop 06/08/16 at 17:15; Status DC Lidocaine/ Epinephrine 20 ml 20 ml STK-MED ONCE .ROUTE ; Start 06/08/16 at 17:14 ; Stop 06/08/16 at 17:15; Status DC Heparin Sodium/ Sodium Chloride 500 ml @ As Directed STK-MED ONCE .ROUTE ; Start 06/08/16 at 17:14; Stop 06/08/16 at 17:15; Status DC Fentanyl Citrate (Fentanyl 2ml Vial) 100 mcg STK-MED ONCE .ROUTE ; Start at 17:35; Stop 06/08/16 at 17:36; Status DC Midazolam HCl 2 mg 2 mg STK-MED ONCE .ROUTE ; Start 06/08/16 at 17:35; Stop at 17:36; Status DC Cefazolin Sodium (Ancef 1gm Ivpb For Omni) 50 ml @ As Directed STK-MED ONCE IV ; Start 06/08/16 at 17:36; Stop 06/08/16 at 17:37; Status DC Heparin Sodium/ Sodium Chloride 1,000 unit 1X ONCE IART Last administered on 18:04; Start 06/08/16 at 18:00; Stop 06/08/16 at 18:02; Status DC Midazolam HCl (Versed) 2 mg 1X ONCE IV Last administered on 06/08/16 18:04; Start 06/08/16 at 18:00; Stop 06/08/16 at 18:02; Status DC Fentanyl Citrate (Fentanyl 2ml Vial) 100 mcg 1X ONCE IV Last administered on 18:04; Start 06/08/16 at 18:00; Stop 06/08/16 at 18:02; Status DC Heparin Sodium (Porcine) 4300 unit 4,300 unit 1X ONCE IV Last administered on 06/08/16 18:05; Start 06/08/16 at 18:00; Stop 06/08/16 at 18:02; Status DC Cefazolin Sodium (Ancef 1gm Ivpb For Omni) 50 ml @ 100 mls/hr 1X ONCE IV Last administered on 06/08/16 18:06; Start 06/08/16 at 18:00; Stop 06/08/16 at 18:29; Status DC Lidocaine/ Epinephrine 10 ml 10 ml 1X ONCE IJ Last administered on 06/08/16t 18:05; Start 06/08/16 at 18:00; Stop 06/08/16 at 18:02; Status DC Sodium Chloride 1,000 ml @ 1,000 mls/hr Q1H PRN IV hypotension; Start 06/09/16 at 14:32; Stop 06/09/16 at 20:31; Status DC Albumin Human (Albuminar) 200 ml @ 200 mls/hr 1X PRN PRN IV Hypotension; Start 06/09/16 at 14:45; Stop 06/09/16 at 20:44; Status DC Sodium Chloride (Normal Saline Flush) 10 ml 1X PRN PRN IV AP catheter pack; Start 06/09/16 at 14:45; Stop 06/10/16 at 14:44; Status DC Sodium Chloride 10 ml 10 ml 1X PRN PRN IV RAW SCALES OPERATOR catheter pack; Start 06/09/16 at 14:45; Stop 06/10/16 at 14:44; Status DC Sodium Chloride (Iv Sodium Chloride 0.9% 1000ml Bag) 1,000 ml @ 400 mls/hr Q2H30M PRN IV PATENCY; Start 06/09/16 at 14:32; Stop 06/10/16 at 02:31; Status DC Glimepiride 1 mg 1 mg DAILY PO Last administered on 06/12/16t 09:28; Start at 17:00; Stop 06/12/16 at 13:46; Status DC Sodium Chloride (Iv Sodium Chloride 0.9% 1000ml Bag) 1,000 ml @ 1,000 mls/hr Q1H PRN IV hypotension; Start 06/11/16 at 09:18; Stop 06/11/16 at 15:17; Status DC Acetaminophen (Tylenol) 500 mg 1X PRN PRN PO MILD PAIN / TEMP; Start 06/11/16 at 09:30; Stop 06/12/16 at 09:29; Status DC Diphenhydramine HCl (Benadryl) 25 mg 1X PRN PRN IV ITCHING; Start 06/11/16 at 09:30; Stop 06/12/16 at 09:29; Status DC Diphenhydramine HCl (Benadryl) 25 mg 1X PRN PRN IV ITCHING; Start 06/11/16 at 09:30; Stop 06/12/16 at 09:29; Status DC Sodium Chloride (Normal Saline Flush) 10 ml 1X PRN PRN IV AP catheter pack; Start 06/11/16 at 09:30; Stop 06/12/16 at 09:29; Status DC Sodium Chloride (Normal Saline Flush) 10 ml 1X PRN PRN IV RAW SCALES OPERATOR catheter pack; Start 06/11/16 at 09:30; Stop 06/12/16 at 09:29; Status DC Labetalol HCl 10 mg 10 mg PRN Q1HR PRN IVP SBP > 180; Start 06/11/16 at 09:30; Stop 06/12/16 at 09:29; Status DC Sodium Chloride (Iv Sodium Chloride 0.9% 1000ml Bag) 1,000 ml @ 400 mls/hr Q2H30M PRN IV PATENCY; Start 06/11/16 at 09:18; Stop 06/11/16 at 21:17; Status DC Info (PHARMACY MONITORING -- do not chart) 1 each PRN DAILY PRN MC SEE COMMENTS ; Start 06/11/16 at 09:30; Status UNV Amlodipine Besylate (Norvasc) 5 mg DAILY PO Last administered on 06/17/16 09: 37; Start 06/12/16 at 12:00; Stop 06/17/16 at 10:23; Status DC Glimepiride (Amaryl) 2 mg DAILY PO Last administered on 06/19/16 08:53; Start 06/13/16 at 09:00 Insulin Detemir 10 units 10 units QHS SQ Last administered on 06/18/16 21:33; Start 06/13/16 at 21:00 Sodium Chloride (Iv Sodium Chloride 0.9% 1000ml Bag) 1,000 ml @ 1,000 mls/hr Q1H PRN IV hypotension; Start 06/14/16 at 13:02; Stop 06/14/16 at 19:01; Status DC Sodium Chloride (Normal Saline Flush) 10 ml 1X PRN PRN IV AP catheter pack; Start 06/14/16 at 13:15; Stop 06/15/16 at 13:14; Status DC Sodium Chloride (Normal Saline Flush) 10 ml 1X PRN PRN IV RAW SCALES OPERATOR catheter pack; Start 06/14/16 at 13:15; Stop 06/15/16 at 13:14; Status DC Info (PHARMACY MONITORING -- do not chart) 1 each PRN DAILY PRN MC SEE COMMENTS ; Start 06/14/16 at 13:15; Status UNV Info 1 each 1 each PRN DAILY PRN MC SEE COMMENTS; Start 06/14/16 at 13:15; Status UNV Sodium Chloride (Iv Sodium Chloride 0.9% 1000ml Bag) 1,000 ml @ 1,000 mls/hr Q1H PRN IV hypotension; Start 06/16/16 at 07:54; Stop 06/16/16 at 13:53; Status DC Diphenhydramine HCl (Benadryl) 25 mg 1X PRN PRN IV ITCHING; Start 06/16/16 at 08:00; Stop 06/17/16 at 07:59; Status DC Diphenhydramine HCl (Benadryl) 25 mg 1X PRN PRN IV ITCHING; Start 06/16/16 at 08:00; Stop 06/17/16 at 07:59; Status DC Sodium Chloride (Normal Saline Flush) 10 ml 1X PRN PRN IV AP catheter pack; Start 06/16/16 at 08:00; Stop 06/17/16 at 07:59; Status DC Sodium Chloride (Normal Saline Flush) 10 ml 1X PRN PRN IV RAW SCALES OPERATOR catheter pack; Start 06/16/16 at 08:00; Stop 06/17/16 at 07:59; Status DC Labetalol HCl 10 mg 10 mg PRN Q1HR PRN IVP SBP > 180 Last administered on t 11:04; Start 06/16/16 at 08:00; Stop 06/17/16 at 07:59; Status DC Sodium Chloride (Iv Sodium Chloride 0.9% 1000ml Bag) 1,000 ml @ 400 mls/hr Q2H30M PRN IV PATENCY; Start 06/16/16 at 07:54; Stop 06/16/16 at 19:53; Status DC Info (PHARMACY MONITORING -- do not chart) 1 each PRN DAILY PRN MC SEE COMMENTS ; Start 06/16/16 at 08:00; Status UNV Info (PHARMACY MONITORING -- do not chart) 1 each PRN DAILY PRN MC SEE COMMENTS ; Start 06/16/16 at 08:00; Status UNV Amlodipine Besylate (Norvasc) 10 mg DAILY PO Last administered on 06/19/16 08: 52; Start 06/17/16 at 11:00 Throat Lozenges 1 whitney 1 whitney PRN Q2HRS PRN PO SORE THROAT Last administered on 21:01; Start 06/17/16 at 11:15 Sodium Chloride (Iv Sodium Chloride 0.9% 1000ml Bag) 1,000 ml @ 1,000 mls/hr Q1H PRN IV hypotension; Start 06/18/16 at 07:44; Stop 06/18/16 at 13:43; Status DC Diphenhydramine HCl (Benadryl) 25 mg 1X PRN PRN IV ITCHING; Start 06/18/16 at 07:45; Stop 06/19/16 at 07:44; Status DC Diphenhydramine HCl (Benadryl) 25 mg 1X PRN PRN IV ITCHING; Start 06/18/16 at 07:45; Stop 06/19/16 at 07:44; Status DC Sodium Chloride (Normal Saline Flush) 10 ml 1X PRN PRN IV AP catheter pack; Start 06/18/16 at 07:45; Stop 06/19/16 at 07:44; Status DC Sodium Chloride (Normal Saline Flush) 10 ml 1X PRN PRN IV RAW SCALES OPERATOR catheter pack; Start 06/18/16 at 07:45; Stop 06/19/16 at 07:44; Status DC Labetalol HCl (Normodyne) 10 mg PRN Q1HR PRN IVP SBP > 180 Last administered on 06/18/16 10:56; Start 06/18/16 at 07:45; Stop 06/19/16 at 07:44; Status DC Clonidine HCl 0.1 mg 0.1 mg 1X PRN PRN PO SBP > 180 Last administered on 11:03; Start 06/18/16 at 07:45; Stop 06/19/16 at 07:44; Status DC Sodium Chloride (Iv Sodium Chloride 0.9% 1000ml Bag) 1,000 ml @ 400 mls/hr Q2H30M PRN IV PATENCY; Start 06/18/16 at 07:44; Stop 06/18/16 at 19:43; Status DC Info (PHARMACY MONITORING -- do not chart) 1 each PRN DAILY PRN MC SEE COMMENTS ; Start 06/18/16 at 07:45; Status UNV Ibuprofen (Motrin) 400 mg PRN Q6HRS PRN PO INFLAMMATION; Start 06/18/16 at 22: 45 Active Scripts Active Lisinopril 20 Mg Tablet 20 Mg PO QHS Isosorbide Mononitrate Er (Isosorbide Mononitrate) 30 Mg Tab.er.24h 30 Mg PO DAILY Hydralazine Hcl 50 Mg Tablet 100 Mg PO TID Carvedilol 12.5 Mg Tablet 25 Mg PO BIDWMEALS Atorvastatin Calcium 40 Mg Tablet 80 Mg PO QHS Aspirin Ec (Aspirin) 81 Mg Tablet.dr 81 Mg PO DAILYWBKFT Amlodipine Besylate 5 Mg Tablet 5 Mg PO DAILYWLUN Reported Clopidogrel (Clopidogrel Bisulfate) 75 Mg Tablet 75 Mg PO DAILY Glyburide 5 Mg Tablet 1 Tab PO BIDWMEALS Lisinopril 20 Mg Tablet 1 Tab PO DAILY Vitals/I & O Vital Sign - Last 24 Hours 06/18/16 06/18/16 06/18/16 06/18/16 11:52 11:53 11:53 11:54 Pulse 79 72 72 78 B/P 155/53 155/53 155/53 155/53 06/18/16 06/18/16 06/18/16 06/18/16 15:02 17:00 19:59 20:00 Temp 101.8 101.4 101.8 101.4 Pulse 81 81 84 Resp 19 18 B/P 157/53 157/53 128/46 Pulse Ox 94 93 O2 Delivery Room Air Room Air Room Air 06/18/16 06/19/16 06/19/16 06/19/16 23:39 03:20 07:00 08:00 Temp 100.8 99.7 101.8 100.8 99.7 101.8 Pulse 73 76 79 Resp 18 16 18 B/P 131/48 131/48 140/54 Pulse Ox 94 97 95 O2 Delivery Room Air Room Air Room Air Room Air 06/19/16 06/19/16 06/19/16 06/19/16 08:52 08:53 08:53 08:54 Pulse 79 79 79 79 B/P 140/54 140/54 140/54 140/54 06/19/16 10:56 Temp 99.9 99.9 Pulse 70 Resp 18 B/P 132/44 Pulse Ox 93 O2 Delivery Room Air Intake and Output 06/18/16 06/18/16 06/19/16 15:00 23:00 07:00 Intake Total 500 ml 100 ml Output Total 200 ml Balance 300 ml 100 ml FINN PEARL III DO Jun 19, 2016 11:27
[2016-06-19 15:11] VITALS: BP 120/44
[2016-06-19 19:49] VITALS: BP 130/41
[2016-06-19] MEDS: ATORVASTATIN CALCIUM 40 MG TABLET. PO SCH (21:04)
[2016-06-19] MEDS: INSULIN DETEMIR 300 UNITS/3 ML INSULN.PEN. SQ SCH (21:12)
[2016-06-19 23:39] VITALS: BP 137/48
[2016-06-20 03:45] VITALS: BP 150/57
[2016-06-20 07:33] VITALS: BP 139/57
[2016-06-20] MEDS: FERROUS SULFATE 325 MG TABLET PO SCH ×2 (09:05→21:01)
[2016-06-20] MEDS: GLIMEPIRIDE 2 MG TABLET PO SCH (09:05)
[2016-06-20] MEDS: ISOSORBIDE MONONITRATE ER 30 MG TAB.ER.24H PO SCH (09:06)
[2016-06-20] MEDS: ASPIRIN ENTERIC COATED 81 MG TABLET.DR. PO SCH (09:06)
[2016-06-20] MEDS: AMLODIPINE BESYLATE 10 MG TABLET PO SCH (09:06)
[2016-06-20] MEDS: CARVEDILOL 12.5 MG TABLET PO SCH ×2 (09:06→17:46)
[2016-06-20] MEDS: LISINOPRIL 40 MG TABLET. PO SCH (09:07)
[2016-06-20] MEDS: CYANOCOBALAMIN (VITAMIN B-12) 1,000 MCG TABLET. PO SCH (09:07)
[2016-06-20] MEDS: INSULIN ASPART 300 UNITS/3 ML INSULN.PEN SQ SCH ×3 (09:11→17:49)
[2016-06-20 09:36] LABS: CALCIUM 7.8 mg/dL (8.5-10.1); CREATININE 4.3 mg/dL (0.6-1.0); GFR 10.5
[2016-06-20 09:37] LABS: BASO % 1 % (0-3); EOS % 3 % (0-3); HEMATOCRIT 23.1 % (36.0-47.0); HEMOGLOBIN 7.6 g/dL (12.0-15.5); LYMPH # 1.4 x10^3/uL (1.0-4.8); LYMPH % 32 % (24-48); MEAN CORPUSCULAR HEMOGLOBIN 30 pg (25-35); MEAN CORPUSCULAR HGB CONC 33 g/dL (31-37); MEAN CORPUSCULAR VOLUME 92 fL (79-100); MONO % 12 % (0-9); NEUT % 52 % (31-73); PLATELET COUNT 178 x10^3/uL (140-400); RED CELL DISTRIBUTION WIDTH 14.1 % (11.5-14.5); WHITE BLOOD COUNT 4.3 x10^3/uL (4.0-11.0)
[2016-06-20 10:29] VITALS: BP 110/53
--- NOTE | 2016-06-20 13:32 | PDOC ---
PROGRESS NOTES Chief Complaint Chief Complaint 1. Acute on chronic systolic congestive heart failure. Stable 2. Srx-UO-xlnyakp elevation myocardial infarction. 3. ZORAN with CKD on HD 4. Ischemic cardiomyopathy. 5. Malignant hypertension, Better 6. Anemia 7. Hyperlipidemia. 8. Psoriasis. 9. CAD 10. Anemia 11. UTI not POA 12. DM2 13. Fevers. History of Present Illness History of Present Illness Patient awake, alert, and oriented when seen and examined this AM. Pt states that she is doing "good". Family member present and at bedside. Pt denies any current CP or SOA. No fevers of chills. VSS- All questions and concerns addressed and answered. Vitals Vitals Vital Signs Date Time Temp Pulse Resp B/P Pulse Ox O2 Delivery O2 Flow Rate FiO2 06/20/16 10:29 98.9 66 18 110/53 93 Room Air 98.9 06/19/16 20:00 2.0 Physical Exam General: Alert, Oriented X3, Cooperative, No acute distress Heart: Regular rate, Normal S1, Normal S2, No murmurs, Gallops Lungs: Clear, Other Abdomen: Normal bowel sounds, Soft, No tenderness, No hepatosplenomegaly, No masses Extremities: No clubbing, No cyanosis, No edema, Normal pulses, No tenderness/ swelling Skin: No rashes, No breakdown, No significant lesion, Other (psoriasis ) Labs LABS Laboratory Tests Test 06/19/16 16:42 06/19/16 21:05 06/19/16 21:07 06/20/16 07:32 Glucose (Fingerstick) 246mg/dL (70-99) 405mg/dL (70-99) 399mg/dL (70-99) 223mg/dL (70-99) Test 06/20/16 08:50 06/20/16 10:52 White Blood Count 4.3x10^3/uL (4.0-11.0) Red Blood Count 2.50x10^6/uL (3.50-5.40) Hemoglobin 7.6g/dL (12.0-15.5) Hematocrit 23.1% (36.0-47.0) Mean Corpuscular Volume 92fL (79-100) Mean Corpuscular Hemoglobin 30pg (25-35) Mean Corpuscular Hemoglobin Concent 33g/dL (31-37) Red Cell Distribution Width 14.1% (11.5-14.5) Platelet Count 178x10^3/uL (140-400) Neutrophils (%) (Auto) 52% (31-73) Lymphocytes (%) (Auto) 32% (24-48) Monocytes (%) (Auto) 12% (0-9) Eosinophils (%) (Auto) 3% (0-3) Basophils (%) (Auto) 1% (0-3) Neutrophils # (Auto) 2.2x10^3uL (1.8-7.7) Lymphocytes # (Auto) 1.4x10^3/uL (1.0-4.8) Monocytes # (Auto) 0.5x10^3/uL (0.0-1.1) Eosinophils # (Auto) 0.1x10^3/uL (0.0-0.7) Basophils # (Auto) 0.0x10^3/uL (0.0-0.2) Sodium Level 138mmol/L (136-145) Potassium Level 4.0mmol/L (3.5-5.1) Chloride Level 101mmol/L (98-107) Carbon Dioxide Level 27mmol/L (21-32) Anion Gap 10 (6-14) Blood Urea Nitrogen 48mg/dL (7-20) Creatinine 4.3mg/dL (0.6-1.0) Estimated GFR (Cockcroft-Gault) 10.5 Glucose Level 219mg/dL (70-99) Calcium Level 7.8mg/dL (8.5-10.1) Glucose (Fingerstick) 228mg/dL (70-99) Review of Systems Review of Systems Complaint of hunger Complaint of fatigue Assessment and Plan Assessmemt and Plan Problems Medical Problems: (1) Congestive heart failure Status: Acute (2) NSTEMI (non-ST elevated myocardial infarction) Status: Acute Assessment: 1. Acute on chronic systolic congestive heart failure. Stable 2. Htg-GM-mcbgmie elevation myocardial infarction. 3. ZORAN with CKD on HD 4. Ischemic cardiomyopathy. 5. Malignant hypertension, Better 6. Anemia 7. Hyperlipidemia. 8. Psoriasis. 9. CAD 10. Anemia 11. UTI not POA 12. DM2 13. Fevers. Plan: Continue to monitor the patient per floor protocol Continue daily labs- CBC, BMP, BUN, and Cr Monitor daily Hgb Continue home meds Continue supportive care Await older adult social work specialist placement and HD setup Encouraged medication compliance Appreciate Nephrology input and recommendations Discuss with floor RN and family Problems: Comment Review of Relevant I have reviewed the following items fede (where applicable) has been applied. Labs Laboratory Tests Test 06/18/16 16:35 06/18/16 18:36 06/18/16 21:29 06/19/16 07:20 Glucose (Fingerstick) 253mg/dL (70-99) 264mg/dL (70-99) 142mg/dL (70-99) Influenza Type A Antigen Negative (NEGATIVE) Influenza Type B Antigen Negative (NEGATIVE) Test 06/19/16 11:56 06/19/16 16:42 06/19/16 21:05 06/19/16 21:07 Glucose (Fingerstick) 201mg/dL (70-99) 246mg/dL (70-99) 405mg/dL (70-99) 399mg/dL (70-99) Test 06/20/16 07:32 06/20/16 08:50 06/20/16 10:52 Glucose (Fingerstick) 223mg/dL (70-99) 228mg/dL (70-99) White Blood Count 4.3x10^3/uL (4.0-11.0) Red Blood Count 2.50x10^6/uL (3.50-5.40) Hemoglobin 7.6g/dL (12.0-15.5) Hematocrit 23.1% (36.0-47.0) Mean Corpuscular Volume 92fL (79-100) Mean Corpuscular Hemoglobin 30pg (25-35) Mean Corpuscular Hemoglobin Concent 33g/dL (31-37) Red Cell Distribution Width 14.1% (11.5-14.5) Platelet Count 178x10^3/uL (140-400) Neutrophils (%) (Auto) 52% (31-73) Lymphocytes (%) (Auto) 32% (24-48) Monocytes (%) (Auto) 12% (0-9) Eosinophils (%) (Auto) 3% (0-3) Basophils (%) (Auto) 1% (0-3) Neutrophils # (Auto) 2.2x10^3uL (1.8-7.7) Lymphocytes # (Auto) 1.4x10^3/uL (1.0-4.8) Monocytes # (Auto) 0.5x10^3/uL (0.0-1.1) Eosinophils # (Auto) 0.1x10^3/uL (0.0-0.7) Basophils # (Auto) 0.0x10^3/uL (0.0-0.2) Sodium Level 138mmol/L (136-145) Potassium Level 4.0mmol/L (3.5-5.1) Chloride Level 101mmol/L (98-107) Carbon Dioxide Level 27mmol/L (21-32) Anion Gap 10 (6-14) Blood Urea Nitrogen 48mg/dL (7-20) Creatinine 4.3mg/dL (0.6-1.0) Estimated GFR (Cockcroft-Gault) 10.5 Glucose Level 219mg/dL (70-99) Calcium Level 7.8mg/dL (8.5-10.1) Laboratory Tests Test 06/19/16 16:42 06/19/16 21:05 06/19/16 21:07 06/20/16 07:32 Glucose (Fingerstick) 246mg/dL (70-99) 405mg/dL (70-99) 399mg/dL (70-99) 223mg/dL (70-99) Test 06/20/16 08:50 06/20/16 10:52 White Blood Count 4.3x10^3/uL (4.0-11.0) Red Blood Count 2.50x10^6/uL (3.50-5.40) Hemoglobin 7.6g/dL (12.0-15.5) Hematocrit 23.1% (36.0-47.0) Mean Corpuscular Volume 92fL (79-100) Mean Corpuscular Hemoglobin 30pg (25-35) Mean Corpuscular Hemoglobin Concent 33g/dL (31-37) Red Cell Distribution Width 14.1% (11.5-14.5) Platelet Count 178x10^3/uL (140-400) Neutrophils (%) (Auto) 52% (31-73) Lymphocytes (%) (Auto) 32% (24-48) Monocytes (%) (Auto) 12% (0-9) Eosinophils (%) (Auto) 3% (0-3) Basophils (%) (Auto) 1% (0-3) Neutrophils # (Auto) 2.2x10^3uL (1.8-7.7) Lymphocytes # (Auto) 1.4x10^3/uL (1.0-4.8) Monocytes # (Auto) 0.5x10^3/uL (0.0-1.1) Eosinophils # (Auto) 0.1x10^3/uL (0.0-0.7) Basophils # (Auto) 0.0x10^3/uL (0.0-0.2) Sodium Level 138mmol/L (136-145) Potassium Level 4.0mmol/L (3.5-5.1) Chloride Level 101mmol/L (98-107) Carbon Dioxide Level 27mmol/L (21-32) Anion Gap 10 (6-14) Blood Urea Nitrogen 48mg/dL (7-20) Creatinine 4.3mg/dL (0.6-1.0) Estimated GFR (Cockcroft-Gault) 10.5 Glucose Level 219mg/dL (70-99) Calcium Level 7.8mg/dL (8.5-10.1) Glucose (Fingerstick) 228mg/dL (70-99) Microbiology 06/04/16 Blood Culture - Final, Complete NO GROWTH AFTER 5 DAYS 06/17/16 Throat Culture - Final, Complete 06/17/16 - Final, Complete 06/06/16 Urine Culture - Final, Complete 06/06/16 Urine Culture Result 1 (KUSHAL) - Final, Complete Medications Current Medications Aspirin 324 mg 324 mg 1X ONCE PO Last administered on 06/01/16 12:59; Start at 12:45; Stop 06/01/16 at 12:48; Status DC Heparin Sodium/ Dextrose 500 ml @ 19 mls/hr CONT PRN IV SEE I/O RECORD Last administered on 06/02/16 14:45; Start 06/01/16 at 12:45; Stop 06/03/16 at 15:30; Status DC Heparin Sodium (Porcine) 1,950 unit PRN Q6HRS PRN IV FOR UFH LEVEL LESS THAN 0.2 Last administered on 06/01/16 13:01; Start 06/01/16 at 12:45; Stop 06/03/16 at 15:30; Status DC Ondansetron HCl (Zofran) 4 mg PRN Q8HRS PRN IV NAUSEA/VOMITING; Start 06/01/16 at 12:45; Stop 06/02/16 at 12:44; Status DC Morphine Sulfate 4 mg PRN Q2HR PRN IV PAIN Last administered on 06/01/16 14:03 ; Start 06/01/16 at 12:45; Stop 06/02/16 at 12:44; Status DC Nitroglycerin (Nitrostat) 0.4 mg PRN Q5MIN PRN SL CHEST PAIN Last administered on 06/01/16 14:03; Start 06/01/16 at 12:45; Stop 06/02/16 at 12:44; Status DC Amlodipine Besylate (Norvasc) 5 mg DAILYWLUN PO Last administered on 06/02/16 08:32; Start 06/01/16 at 14:00; Stop 06/02/16 at 16:02; Status DC Aspirin (Ecotrin) 81 mg DAILYWBKFT PO Last administered on 06/20/16 09:06; Start 06/01/16 at 14:00 Atorvastatin Calcium (Lipitor) 80 mg QHS PO Last administered on 06/19/16 21: 04; Start 06/01/16 at 21:00 Carvedilol (Coreg) 25 mg BIDWMEALS PO Last administered on 06/20/16 09:06; Start 06/01/16 at 17:00 Clopidogrel Bisulfate (Plavix) 75 mg DAILY PO Last administered on 06/01/16 14: 28; Start 06/01/16 at 14:00; Stop 06/02/16 at 08:41; Status DC Isosorbide Mononitrate (Imdur) 30 mg DAILY PO Last administered on 06/20/16 09 :06; Start 06/01/16 at 14:00 Furosemide (Lasix) 40 mg 1X ONCE IVP Last administered on 06/01/16 14:30; Start 06/01/16 at 14:00; Stop 06/01/16 at 14:23; Status DC Furosemide 40 mg 40 mg 1X ONCE IVP Last administered on 06/01/16 14:30; Start 06/01/16 at 14:30; Stop 06/01/16 at 14:38; Status DC Nitroglycerin/ Dextrose (Nitroglycerin Drip) 250 ml @ 0 mls/hr CONT PRN IV SEE I/O RECORD Last administered on 06/01/16 15:23; Start 06/01/16 at 14:30; Stop 06/02/16 at 16:02; Status DC Acetaminophen (Tylenol) 325 mg PRN Q6HRS PRN PO MILD PAIN / TEMP Last administered on 06/19/16 17:38; Start 06/01/16 at 15:00 Acetaminophen/ Hydrocodone Bitart (Lortab 5/325) 1 tab PRN Q6HRS PRN PO MODERATE TO SEVERE PAIN Last administered on 06/09/16 21:18; Start 06/01/16 at 15:00 Hydralazine HCl (Apresoline) 10 mg PRN Q4HRS PRN IVP ELEVATED BP, SEE COMMENTS Last administered on 06/14/16 11:16; Start 06/01/16 at 15:00 Ondansetron HCl (Zofran) 4 mg PRN Q8HRS PRN IV NAUSEA/VOMITING; Start 06/01/16 at 15:00 Albuterol Sulfate (Ventolin Neb Soln) 2.5 mg PRN Q4HRS PRN NEB SHORTNESS OF BREATH; Start 06/01/16 at 15:00 Insulin Aspart (Novolog) 0-7 UNITS TIDWMEALS SQ Last administered on 06/20/16 12:30; Start 06/01/16 at 17:00 Dextrose 12.5 gm PRN Q15MIN PRN IV SEE COMMENTS; Start 06/01/16 at 15:00 Info 1 each 1 each PRN DAILY PRN MC SEE COMMENTS Last administered on 06/03/16 09:38; Start 06/01/16 at 17:00; Stop 06/04/16 at 08:25; Status DC Magnesium Sulfate/ Dextrose (Magnesium Sulfate PREMIX 2GM) 50 ml @ 25 mls/hr PRN DAILY PRN IV for Mag < 1.7 on am labs; Start 06/02/16 at 11:15 Lidocaine/Sodium Bicarbonate (Buffered Lidocaine 1%) 3 ml 1X ONCE IJ Last administered on 06/02/16 14:03; Start 06/02/16 at 12:30; Stop 06/02/16 at 12:34; Status DC Heparin Sodium (Porcine) 2,400 unit 1X ONCE INT CAT Last administered on 14:04; Start 06/02/16 at 12:30; Stop 06/02/16 at 12:34; Status DC Heparin Sodium/ Sodium Chloride 60 unit 1X ONCE IV Last administered on 14:04; Start 06/02/16 at 12:30; Stop 06/02/16 at 12:34; Status DC Lisinopril (Prinivil) 20 mg DAILY PO Last administered on 06/06/16 09:22; Start 06/02/16 at 16:00; Stop 06/07/16 at 10:31; Status DC Hydralazine HCl 50 mg 50 mg BID PO Last administered on 06/06/16 20:55; Start 06/02/16 at 21:00; Stop 06/07/16 at 10:31; Status DC Sodium Chloride (Iv Sodium Chloride 0.9% 1000ml Bag) 1,000 ml @ 1,000 mls/hr Q1H PRN IV hypotension; Start 06/02/16 at 18:28; Stop 06/03/16 at 00:27; Status DC Diphenhydramine HCl (Benadryl) 25 mg 1X PRN PRN IV ITCHING; Start 06/02/16 at 18 :30; Stop 06/03/16 at 18:29; Status DC Diphenhydramine HCl (Benadryl) 25 mg 1X PRN PRN IV ITCHING; Start 06/02/16 at 18 :30; Stop 06/03/16 at 18:29; Status DC Sodium Chloride (Normal Saline Flush) 10 ml 1X PRN PRN IV AP catheter pack; Start 06/02/16 at 18:30; Stop 06/03/16 at 18:29; Status DC Sodium Chloride 10 ml 10 ml 1X PRN PRN IV ENGINEERING RESEARCH MANAGER catheter pack; Start 06/02/16 at 18 :30; Stop 06/03/16 at 18:29; Status DC Sodium Chloride (Iv Sodium Chloride 0.9% 1000ml Bag) 1,000 ml @ 400 mls/hr Q2H30M PRN IV PATENCY; Start 06/02/16 at 18:28; Stop 06/03/16 at 06:27; Status DC Info (PHARMACY MONITORING -- do not chart) 1 each PRN DAILY PRN MC SEE COMMENTS ; Start 06/02/16 at 18:30 Info (PHARMACY MONITORING -- do not chart) 1 each PRN DAILY PRN MC SEE COMMENTS ; Start 06/03/16 at 10:30; Status UNV Info (PHARMACY MONITORING -- do not chart) 1 each PRN DAILY PRN MC SEE COMMENTS ; Start 06/03/16 at 10:30; Status Cancel Darbepoetin Malick (Aranesp) 60 mcg WEEKLYHS SQ Last administered on 06/17/16 21 :04; Start 06/03/16 at 21:00 Clopidogrel Bisulfate (Plavix) 75 mg DAILYWBKFT PO ; Start 06/04/16 at 08:00; Stop 06/04/16 at 08:00; Status DC Clopidogrel Bisulfate 75 mg 75 mg DAILYWBKFT PO Last administered on 06/04/16 08:25; Start 06/03/16 at 15:30; Stop 06/05/16 at 18:54; Status DC Sodium Chloride (Iv Sodium Chloride 0.9% 1000ml Bag) 1,000 ml @ 1,000 mls/hr Q1H PRN IV hypotension; Start 06/04/16 at 08:11; Stop 06/04/16 at 15:00; Status DC Diphenhydramine HCl (Benadryl) 25 mg 1X PRN PRN IV ITCHING; Start 06/04/16 at 08:15; Stop 06/04/16 at 15:00; Status DC Diphenhydramine HCl (Benadryl) 25 mg 1X PRN PRN IV ITCHING; Start 06/04/16 at 08:15; Stop 06/04/16 at 15:00; Status DC Sodium Chloride (Normal Saline Flush) 10 ml 1X PRN PRN IV AP catheter pack; Start 06/04/16 at 08:15; Stop 06/04/16 at 15:00; Status DC Sodium Chloride 10 ml 10 ml 1X PRN PRN IV ENGINEERING RESEARCH MANAGER catheter pack; Start 06/04/16 at 08:15; Stop 06/04/16 at 15:00; Status DC Sodium Chloride (Iv Sodium Chloride 0.9% 1000ml Bag) 1,000 ml @ 400 mls/hr Q2H30M PRN IV PATENCY; Start 06/04/16 at 08:11; Stop 06/04/16 at 21:00; Status DC Info 1 each 1 each PRN DAILY PRN MC SEE COMMENTS; Start 06/04/16 at 08:15; Status UNV Magnesium Sulfate/ Dextrose 100 ml @ 100 mls/hr 1X ONCE IV Last administered on 06/04/16 12:36; Start 06/04/16 at 10:30; Stop 06/04/16 at 11:29; Status DC Ceftriaxone Sodium 1 gm/ Sodium Chloride 50 ml @ 100 mls/hr Q24H IV Last administered on 06/09/16 17:35; Start 06/06/16 at 16:00; Stop 06/10/16 at 15:02 ; Status DC Sodium Chloride 1,000 ml @ 1,000 mls/hr Q1H PRN IV hypotension; Start 06/07/16 at 08:48; Stop 06/07/16 at 14:47; Status DC Sodium Chloride (Iv Sodium Chloride 0.9% 1000ml Bag) 1,000 ml @ 400 mls/hr Q2H30M PRN IV PATENCY; Start 06/07/16 at 08:48; Stop 06/07/16 at 20:47; Status DC Info (PHARMACY MONITORING -- do not chart) 1 each PRN DAILY PRN MC SEE COMMENTS ; Start 06/07/16 at 09:00; Status UNV Lisinopril (Prinivil) 40 mg DAILY PO Last administered on 06/20/16 09:07; Start 06/08/16 at 09:00 Cyanocobalamin (Vitamin B-12) 1,000 mcg DAILY PO Last administered on 09:07; Start 06/07/16 at 15:30 Ferrous Sulfate (Feosol) 325 mg BID PO Last administered on 06/20/16 09:05; Start 06/07/16 at 21:00 Heparin Sodium (Porcine) 10,000 unit STK-MED ONCE .ROUTE ; Start 06/08/16 at 17: 14; Stop 06/08/16 at 17:15; Status DC Lidocaine/ Epinephrine 20 ml 20 ml STK-MED ONCE .ROUTE ; Start 06/08/16 at 17:14 ; Stop 06/08/16 at 17:15; Status DC Heparin Sodium/ Sodium Chloride 500 ml @ As Directed STK-MED ONCE .ROUTE ; Start 06/08/16 at 17:14; Stop 06/08/16 at 17:15; Status DC Fentanyl Citrate (Fentanyl 2ml Vial) 100 mcg STK-MED ONCE .ROUTE ; Start at 17:35; Stop 06/08/16 at 17:36; Status DC Midazolam HCl 2 mg 2 mg STK-MED ONCE .ROUTE ; Start 06/08/16 at 17:35; Stop at 17:36; Status DC Cefazolin Sodium (Ancef 1gm Ivpb For Omni) 50 ml @ As Directed STK-MED ONCE IV ; Start 06/08/16 at 17:36; Stop 06/08/16 at 17:37; Status DC Heparin Sodium/ Sodium Chloride 1,000 unit 1X ONCE IART Last administered on 18:04; Start 06/08/16 at 18:00; Stop 06/08/16 at 18:02; Status DC Midazolam HCl (Versed) 2 mg 1X ONCE IV Last administered on 06/08/16 18:04; Start 06/08/16 at 18:00; Stop 06/08/16 at 18:02; Status DC Fentanyl Citrate (Fentanyl 2ml Vial) 100 mcg 1X ONCE IV Last administered on 18:04; Start 06/08/16 at 18:00; Stop 06/08/16 at 18:02; Status DC Heparin Sodium (Porcine) 4300 unit 4,300 unit 1X ONCE IV Last administered on 06/08/16 18:05; Start 06/08/16 at 18:00; Stop 06/08/16 at 18:02; Status DC Cefazolin Sodium (Ancef 1gm Ivpb For Omni) 50 ml @ 100 mls/hr 1X ONCE IV Last administered on 06/08/16 18:06; Start 06/08/16 at 18:00; Stop 06/08/16 at 18:29; Status DC Lidocaine/ Epinephrine 10 ml 10 ml 1X ONCE IJ Last administered on 06/08/16 18:05; Start 06/08/16 at 18:00; Stop 06/08/16 at 18:02; Status DC Sodium Chloride 1,000 ml @ 1,000 mls/hr Q1H PRN IV hypotension; Start 06/09/16 at 14:32; Stop 06/09/16 at 20:31; Status DC Albumin Human (Albuminar) 200 ml @ 200 mls/hr 1X PRN PRN IV Hypotension; Start 06/09/16 at 14:45; Stop 06/09/16 at 20:44; Status DC Sodium Chloride (Normal Saline Flush) 10 ml 1X PRN PRN IV AP catheter pack; Start 06/09/16 at 14:45; Stop 06/10/16 at 14:44; Status DC Sodium Chloride 10 ml 10 ml 1X PRN PRN IV ENGINEERING RESEARCH MANAGER catheter pack; Start 06/09/16 at 14:45; Stop 06/10/16 at 14:44; Status DC Sodium Chloride (Iv Sodium Chloride 0.9% 1000ml Bag) 1,000 ml @ 400 mls/hr Q2H30M PRN IV PATENCY; Start 06/09/16 at 14:32; Stop 06/10/16 at 02:31; Status DC Glimepiride 1 mg 1 mg DAILY PO Last administered on 06/12/16t 09:28; Start at 17:00; Stop 06/12/16 at 13:46; Status DC Sodium Chloride (Iv Sodium Chloride 0.9% 1000ml Bag) 1,000 ml @ 1,000 mls/hr Q1H PRN IV hypotension; Start 06/11/16 at 09:18; Stop 06/11/16 at 15:17; Status DC Acetaminophen (Tylenol) 500 mg 1X PRN PRN PO MILD PAIN / TEMP; Start 06/11/16 at 09:30; Stop 06/12/16 at 09:29; Status DC Diphenhydramine HCl (Benadryl) 25 mg 1X PRN PRN IV ITCHING; Start 06/11/16 at 09:30; Stop 06/12/16 at 09:29; Status DC Diphenhydramine HCl (Benadryl) 25 mg 1X PRN PRN IV ITCHING; Start 06/11/16 at 09:30; Stop 06/12/16 at 09:29; Status DC Sodium Chloride (Normal Saline Flush) 10 ml 1X PRN PRN IV AP catheter pack; Start 06/11/16 at 09:30; Stop 06/12/16 at 09:29; Status DC Sodium Chloride (Normal Saline Flush) 10 ml 1X PRN PRN IV ENGINEERING RESEARCH MANAGER catheter pack; Start 06/11/16 at 09:30; Stop 06/12/16 at 09:29; Status DC Labetalol HCl 10 mg 10 mg PRN Q1HR PRN IVP SBP > 180; Start 06/11/16 at 09:30; Stop 06/12/16 at 09:29; Status DC Sodium Chloride (Iv Sodium Chloride 0.9% 1000ml Bag) 1,000 ml @ 400 mls/hr Q2H30M PRN IV PATENCY; Start 06/11/16 at 09:18; Stop 06/11/16 at 21:17; Status DC Info (PHARMACY MONITORING -- do not chart) 1 each PRN DAILY PRN MC SEE COMMENTS ; Start 06/11/16 at 09:30; Status UNV Amlodipine Besylate (Norvasc) 5 mg DAILY PO Last administered on 06/17/16 09: 37; Start 06/12/16 at 12:00; Stop 06/17/16 at 10:23; Status DC Glimepiride (Amaryl) 2 mg DAILY PO Last administered on 06/20/16 09:05; Start 06/13/16 at 09:00 Insulin Detemir 10 units 10 units QHS SQ Last administered on 06/19/16 21:12; Start 06/13/16 at 21:00 Sodium Chloride (Iv Sodium Chloride 0.9% 1000ml Bag) 1,000 ml @ 1,000 mls/hr Q1H PRN IV hypotension; Start 06/14/16 at 13:02; Stop 06/14/16 at 19:01; Status DC Sodium Chloride (Normal Saline Flush) 10 ml 1X PRN PRN IV AP catheter pack; Start 06/14/16 at 13:15; Stop 06/15/16 at 13:14; Status DC Sodium Chloride (Normal Saline Flush) 10 ml 1X PRN PRN IV ENGINEERING RESEARCH MANAGER catheter pack; Start 06/14/16 at 13:15; Stop 06/15/16 at 13:14; Status DC Info (PHARMACY MONITORING -- do not chart) 1 each PRN DAILY PRN MC SEE COMMENTS ; Start 06/14/16 at 13:15; Status UNV Info 1 each 1 each PRN DAILY PRN MC SEE COMMENTS; Start 06/14/16 at 13:15; Status UNV Sodium Chloride (Iv Sodium Chloride 0.9% 1000ml Bag) 1,000 ml @ 1,000 mls/hr Q1H PRN IV hypotension; Start 06/16/16 at 07:54; Stop 06/16/16 at 13:53; Status DC Diphenhydramine HCl (Benadryl) 25 mg 1X PRN PRN IV ITCHING; Start 06/16/16 at 08:00; Stop 06/17/16 at 07:59; Status DC Diphenhydramine HCl (Benadryl) 25 mg 1X PRN PRN IV ITCHING; Start 06/16/16 at 08:00; Stop 06/17/16 at 07:59; Status DC Sodium Chloride (Normal Saline Flush) 10 ml 1X PRN PRN IV AP catheter pack; Start 06/16/16 at 08:00; Stop 06/17/16 at 07:59; Status DC Sodium Chloride (Normal Saline Flush) 10 ml 1X PRN PRN IV ENGINEERING RESEARCH MANAGER catheter pack; Start 06/16/16 at 08:00; Stop 06/17/16 at 07:59; Status DC Labetalol HCl 10 mg 10 mg PRN Q1HR PRN IVP SBP > 180 Last administered on 11:04; Start 06/16/16 at 08:00; Stop 06/17/16 at 07:59; Status DC Sodium Chloride (Iv Sodium Chloride 0.9% 1000ml Bag) 1,000 ml @ 400 mls/hr Q2H30M PRN IV PATENCY; Start 06/16/16 at 07:54; Stop 06/16/16 at 19:53; Status DC Info (PHARMACY MONITORING -- do not chart) 1 each PRN DAILY PRN MC SEE COMMENTS ; Start 06/16/16 at 08:00; Status UNV Info (PHARMACY MONITORING -- do not chart) 1 each PRN DAILY PRN MC SEE COMMENTS ; Start 06/16/16 at 08:00; Status UNV Amlodipine Besylate (Norvasc) 10 mg DAILY PO Last administered on 06/20/16 09: 06; Start 06/17/16 at 11:00 Throat Lozenges 1 whitney 1 whitney PRN Q2HRS PRN PO SORE THROAT Last administered on 21:01; Start 06/17/16 at 11:15 Sodium Chloride (Iv Sodium Chloride 0.9% 1000ml Bag) 1,000 ml @ 1,000 mls/hr Q1H PRN IV hypotension; Start 06/18/16 at 07:44; Stop 06/18/16 at 13:43; Status DC Diphenhydramine HCl (Benadryl) 25 mg 1X PRN PRN IV ITCHING; Start 06/18/16 at 07:45; Stop 06/19/16 at 07:44; Status DC Diphenhydramine HCl (Benadryl) 25 mg 1X PRN PRN IV ITCHING; Start 06/18/16 at 07:45; Stop 06/19/16 at 07:44; Status DC Sodium Chloride (Normal Saline Flush) 10 ml 1X PRN PRN IV AP catheter pack; Start 06/18/16 at 07:45; Stop 06/19/16 at 07:44; Status DC Sodium Chloride (Normal Saline Flush) 10 ml 1X PRN PRN IV ENGINEERING RESEARCH MANAGER catheter pack; Start 06/18/16 at 07:45; Stop 06/19/16 at 07:44; Status DC Labetalol HCl (Normodyne) 10 mg PRN Q1HR PRN IVP SBP > 180 Last administered on 06/18/16 10:56; Start 06/18/16 at 07:45; Stop 06/19/16 at 07:44; Status DC Clonidine HCl 0.1 mg 0.1 mg 1X PRN PRN PO SBP > 180 Last administered on 11:03; Start 06/18/16 at 07:45; Stop 06/19/16 at 07:44; Status DC Sodium Chloride (Iv Sodium Chloride 0.9% 1000ml Bag) 1,000 ml @ 400 mls/hr Q2H30M PRN IV PATENCY; Start 06/18/16 at 07:44; Stop 06/18/16 at 19:43; Status DC Info (PHARMACY MONITORING -- do not chart) 1 each PRN DAILY PRN MC SEE COMMENTS ; Start 06/18/16 at 07:45; Status UNV Ibuprofen (Motrin) 400 mg PRN Q6HRS PRN PO INFLAMMATION Last administered on 11:58; Start 06/18/16 at 22:45 Active Scripts Active Lisinopril 20 Mg Tablet 20 Mg PO QHS Isosorbide Mononitrate Er (Isosorbide Mononitrate) 30 Mg Tab.er.24h 30 Mg PO DAILY Hydralazine Hcl 50 Mg Tablet 100 Mg PO TID Carvedilol 12.5 Mg Tablet 25 Mg PO BIDWMEALS Atorvastatin Calcium 40 Mg Tablet 80 Mg PO QHS Aspirin Ec (Aspirin) 81 Mg Tablet.dr 81 Mg PO DAILYWBKFT Amlodipine Besylate 5 Mg Tablet 5 Mg PO DAILYWLUN Reported Clopidogrel (Clopidogrel Bisulfate) 75 Mg Tablet 75 Mg PO DAILY Glyburide 5 Mg Tablet 1 Tab PO BIDWMEALS Lisinopril 20 Mg Tablet 1 Tab PO DAILY Vitals/I & O Vital Sign - Last 24 Hours 06/19/16 06/19/16 06/19/16 06/19/16 15:11 17:44 19:49 20:00 Temp 99.6 98.7 99.6 98.7 Pulse 65 65 66 Resp 18 18 B/P 120/44 120/44 130/41 Pulse Ox 94 92 O2 Delivery Room Air Room Air Room Air O2 Flow Rate 2.0 06/19/16 06/20/16 06/20/16 06/20/16 23:39 03:45 07:33 08:00 Temp 98.7 98.2 99.0 98.7 98.2 99.0 Pulse 69 66 65 Resp 21 20 20 B/P 137/48 150/57 139/57 Pulse Ox 92 95 94 O2 Delivery Room Air Room Air Room Air Room Air 06/20/16 06/20/16 06/20/16 06/20/16 09:06 09:06 09:06 09:07 Pulse 65 65 65 65 B/P 139/57 139/57 139/57 139/57 06/20/16 10:29 Temp 98.9 98.9 Pulse 66 Resp 18 B/P 110/53 Pulse Ox 93 O2 Delivery Room Air Intake and Output 06/19/16 06/19/16 06/20/16 15:00 23:00 07:00 Intake Total 240 ml 100 ml Output Total 150 ml Balance 240 ml -50 ml FINN PEARL III DO Jun 20, 2016 13:32
[2016-06-20 14:40] VITALS: BP 124/51
[2016-06-20] MEDS: ACETAMINOPHEN 325 MG TABLET. PO PRN (14:48)
[2016-06-20 19:16] VITALS: BP 120/50
[2016-06-20] MEDS: ATORVASTATIN CALCIUM 40 MG TABLET. PO SCH (21:01)
[2016-06-20] MEDS: INSULIN DETEMIR 300 UNITS/3 ML INSULN.PEN. SQ SCH (21:07)
[2016-06-20 23:01] VITALS: BP 134/46
--- NOTE | 2016-06-20 23:42 | PDOC ---
Provider Note Provider Note RENAL F/U : XENIA DOing OK VSS Afenrile No new issues Exam stable Labs essentially unchanged. HD in am. CPM FRANCE MICHAELS MD Jun 20, 2016 23:42
[2016-06-21 03:27] VITALS: BP 137/50
[2016-06-21 05:44] LABS: BASO % 1 % (0-3); EOS % 6 % (0-3); HEMATOCRIT 22.8 % (36.0-47.0); HEMOGLOBIN 7.6 g/dL (12.0-15.5); LYMPH # 1.4 x10^3/uL (1.0-4.8); LYMPH % 36 % (24-48); MEAN CORPUSCULAR HEMOGLOBIN 31 pg (25-35); MEAN CORPUSCULAR HGB CONC 33 g/dL (31-37); MEAN CORPUSCULAR VOLUME 92 fL (79-100); MONO % 10 % (0-9); NEUT % 48 % (31-73); PLATELET COUNT 174 x10^3/uL (140-400); RED BLOOD COUNT 2.48 x10^6/uL (3.50-5.40); RED CELL DISTRIBUTION WIDTH 13.9 % (11.5-14.5); WHITE BLOOD COUNT 3.9 x10^3/uL (4.0-11.0)
[2016-06-21 05:58] LABS: CALCIUM 7.6 mg/dL (8.5-10.1); CREATININE 4.5 mg/dL (0.6-1.0); POTASSIUM 3.8 mmol/L (3.5-5.1)
[2016-06-21 07:20] VITALS: BP 137/51
[2016-06-21] MEDS: INSULIN ASPART 300 UNITS/3 ML INSULN.PEN SQ SCH ×2 (08:00→12:00)
[2016-06-21] MEDS ORDERED: IV NORMAL SALINE 1000ML BAG 1,000 ML IV PRN (08:14)
[2016-06-21] MEDS ORDERED: DIALYSIS PATIENT. MC PRN ×2 (08:15)
[2016-06-21] MEDS ORDERED: 0.9 % SODIUM CHLORIDE 10 ML DISP.SYRIN. IV PRN ×2 (08:15)
--- NOTE | 2016-06-21 10:45 | PDOC ---
PROGRESS NOTES Chief Complaint Chief Complaint 1. Acute on chronic systolic congestive heart failure. Stable 2. [id number] elevation myocardial infarction. 3. ZORAN with CKD on HD 4. Ischemic cardiomyopathy. 5. Malignant hypertension, Better 6. Anemia 7. Hyperlipidemia. 8. Psoriasis. 9. CAD 10. Anemia 11. UTI not POA 12. DM2 13. Fevers. History of Present Illness History of Present Illness Pt receiving dialysis when seen this AM. Family member present and at bedside. Pt denies any current CP or SOA. Denies any fevers or chills. VSS- All questions and concerns answered and addressed. Vitals Vitals Vital Signs Date Time Temp Pulse Resp B/P Pulse Ox O2 Delivery O2 Flow Rate FiO2 06/21/16 08:00 Room Air 06/21/16 07:20 98.7 65 16 137/51 99 98.7 06/20/16 20:00 2.0 Physical Exam General: Alert, Oriented X3, Cooperative, No acute distress Heart: Regular rate, Normal S1, Normal S2, No murmurs, Gallops Lungs: Clear, Other Abdomen: Normal bowel sounds, Soft, No tenderness, No hepatosplenomegaly, No masses Extremities: No clubbing, No cyanosis, No edema, Normal pulses, No tenderness/ swelling Skin: No rashes, No breakdown, No significant lesion, Other (psoriasis ) Labs LABS Laboratory Tests Test 06/20/16 10:52 06/20/16 17:03 06/20/16 20:51 06/21/16 04:50 Glucose (Fingerstick) 228mg/dL (70-99) 219mg/dL (70-99) 276mg/dL (70-99) White Blood Count 3.9x10^3/uL (4.0-11.0) Red Blood Count 2.48x10^6/uL (3.50-5.40) Hemoglobin 7.6g/dL (12.0-15.5) Hematocrit 22.8% (36.0-47.0) Mean Corpuscular Volume 92fL (79-100) Mean Corpuscular Hemoglobin 31pg (25-35) Mean Corpuscular Hemoglobin Concent 33g/dL (31-37) Red Cell Distribution Width 13.9% (11.5-14.5) Platelet Count 174x10^3/uL (140-400) Neutrophils (%) (Auto) 48% (31-73) Lymphocytes (%) (Auto) 36% (24-48) Monocytes (%) (Auto) 10% (0-9) Eosinophils (%) (Auto) 6% (0-3) Basophils (%) (Auto) 1% (0-3) Neutrophils # (Auto) 1.9x10^3uL (1.8-7.7) Lymphocytes # (Auto) 1.4x10^3/uL (1.0-4.8) Monocytes # (Auto) 0.4x10^3/uL (0.0-1.1) Eosinophils # (Auto) 0.2x10^3/uL (0.0-0.7) Basophils # (Auto) 0.0x10^3/uL (0.0-0.2) Sodium Level 140mmol/L (136-145) Potassium Level 3.8mmol/L (3.5-5.1) Chloride Level 102mmol/L (98-107) Carbon Dioxide Level 26mmol/L (21-32) Anion Gap 12 (6-14) Blood Urea Nitrogen 58mg/dL (7-20) Creatinine 4.5mg/dL (0.6-1.0) Estimated GFR (Cockcroft-Gault) 10.0 Glucose Level 228mg/dL (70-99) Calcium Level 7.6mg/dL (8.5-10.1) Test 06/21/16 07:45 Glucose (Fingerstick) 154mg/dL (70-99) Review of Systems Review of Systems Complaint of hunger Complaint of weakness Assessment and Plan Assessmemt and Plan Problems Medical Problems: (1) Congestive heart failure Status: Acute (2) NSTEMI (non-ST elevated myocardial infarction) Status: Acute Assessment: 1. Acute on chronic systolic congestive heart failure. Stable 2. [id number] elevation myocardial infarction. 3. ZORAN with CKD on HD 4. Ischemic cardiomyopathy. 5. Malignant hypertension, Better 6. Anemia 7. Hyperlipidemia. 8. Psoriasis. 9. CAD 10. Anemia 11. UTI not POA 12. DM2 13. Fevers. Plan: Continue to monitor the patient per floor protocol Contine to monitor renal function and labs Labs reviewed Continue HD Possible DC later today Appreciate Renal input and recommendations Discussed with classification case manager Discussed with floor nurse Problems: Comment Review of Relevant I have reviewed the following items fede (where applicable) has been applied. Labs Laboratory Tests Test 06/19/16 11:56 06/19/16 16:42 06/19/16 21:05 06/19/16 21:07 Glucose (Fingerstick) 201mg/dL (70-99) 246mg/dL (70-99) 405mg/dL (70-99) 399mg/dL (70-99) Test 06/20/16 07:32 06/20/16 08:50 06/20/16 10:52 06/20/16 17:03 Glucose (Fingerstick) 223mg/dL (70-99) 228mg/dL (70-99) 219mg/dL (70-99) White Blood Count 4.3x10^3/uL (4.0-11.0) Red Blood Count 2.50x10^6/uL (3.50-5.40) Hemoglobin 7.6g/dL (12.0-15.5) Hematocrit 23.1% (36.0-47.0) Mean Corpuscular Volume 92fL (79-100) Mean Corpuscular Hemoglobin 30pg (25-35) Mean Corpuscular Hemoglobin Concent 33g/dL (31-37) Red Cell Distribution Width 14.1% (11.5-14.5) Platelet Count 178x10^3/uL (140-400) Neutrophils (%) (Auto) 52% (31-73) Lymphocytes (%) (Auto) 32% (24-48) Monocytes (%) (Auto) 12% (0-9) Eosinophils (%) (Auto) 3% (0-3) Basophils (%) (Auto) 1% (0-3) Neutrophils # (Auto) 2.2x10^3uL (1.8-7.7) Lymphocytes # (Auto) 1.4x10^3/uL (1.0-4.8) Monocytes # (Auto) 0.5x10^3/uL (0.0-1.1) Eosinophils # (Auto) 0.1x10^3/uL (0.0-0.7) Basophils # (Auto) 0.0x10^3/uL (0.0-0.2) Sodium Level 138mmol/L (136-145) Potassium Level 4.0mmol/L (3.5-5.1) Chloride Level 101mmol/L (98-107) Carbon Dioxide Level 27mmol/L (21-32) Anion Gap 10 (6-14) Blood Urea Nitrogen 48mg/dL (7-20) Creatinine 4.3mg/dL (0.6-1.0) Estimated GFR (Cockcroft-Gault) 10.5 Glucose Level 219mg/dL (70-99) Calcium Level 7.8mg/dL (8.5-10.1) Test 06/20/16 20:51 06/21/16 04:50 06/21/16 07:45 Glucose (Fingerstick) 276mg/dL (70-99) 154mg/dL (70-99) White Blood Count 3.9x10^3/uL (4.0-11.0) Red Blood Count 2.48x10^6/uL (3.50-5.40) Hemoglobin 7.6g/dL (12.0-15.5) Hematocrit 22.8% (36.0-47.0) Mean Corpuscular Volume 92fL (79-100) Mean Corpuscular Hemoglobin 31pg (25-35) Mean Corpuscular Hemoglobin Concent 33g/dL (31-37) Red Cell Distribution Width 13.9% (11.5-14.5) Platelet Count 174x10^3/uL (140-400) Neutrophils (%) (Auto) 48% (31-73) Lymphocytes (%) (Auto) 36% (24-48) Monocytes (%) (Auto) 10% (0-9) Eosinophils (%) (Auto) 6% (0-3) Basophils (%) (Auto) 1% (0-3) Neutrophils # (Auto) 1.9x10^3uL (1.8-7.7) Lymphocytes # (Auto) 1.4x10^3/uL (1.0-4.8) Monocytes # (Auto) 0.4x10^3/uL (0.0-1.1) Eosinophils # (Auto) 0.2x10^3/uL (0.0-0.7) Basophils # (Auto) 0.0x10^3/uL (0.0-0.2) Sodium Level 140mmol/L (136-145) Potassium Level 3.8mmol/L (3.5-5.1) Chloride Level 102mmol/L (98-107) Carbon Dioxide Level 26mmol/L (21-32) Anion Gap 12 (6-14) Blood Urea Nitrogen 58mg/dL (7-20) Creatinine 4.5mg/dL (0.6-1.0) Estimated GFR (Cockcroft-Gault) 10.0 Glucose Level 228mg/dL (70-99) Calcium Level 7.6mg/dL (8.5-10.1) Laboratory Tests Test 06/20/16 10:52 06/20/16 17:03 06/20/16 20:51 06/21/16 04:50 Glucose (Fingerstick) 228mg/dL (70-99) 219mg/dL (70-99) 276mg/dL (70-99) White Blood Count 3.9x10^3/uL (4.0-11.0) Red Blood Count 2.48x10^6/uL (3.50-5.40) Hemoglobin 7.6g/dL (12.0-15.5) Hematocrit 22.8% (36.0-47.0) Mean Corpuscular Volume 92fL (79-100) Mean Corpuscular Hemoglobin 31pg (25-35) Mean Corpuscular Hemoglobin Concent 33g/dL (31-37) Red Cell Distribution Width 13.9% (11.5-14.5) Platelet Count 174x10^3/uL (140-400) Neutrophils (%) (Auto) 48% (31-73) Lymphocytes (%) (Auto) 36% (24-48) Monocytes (%) (Auto) 10% (0-9) Eosinophils (%) (Auto) 6% (0-3) Basophils (%) (Auto) 1% (0-3) Neutrophils # (Auto) 1.9x10^3uL (1.8-7.7) Lymphocytes # (Auto) 1.4x10^3/uL (1.0-4.8) Monocytes # (Auto) 0.4x10^3/uL (0.0-1.1) Eosinophils # (Auto) 0.2x10^3/uL (0.0-0.7) Basophils # (Auto) 0.0x10^3/uL (0.0-0.2) Sodium Level 140mmol/L (136-145) Potassium Level 3.8mmol/L (3.5-5.1) Chloride Level 102mmol/L (98-107) Carbon Dioxide Level 26mmol/L (21-32) Anion Gap 12 (6-14) Blood Urea Nitrogen 58mg/dL (7-20) Creatinine 4.5mg/dL (0.6-1.0) Estimated GFR (Cockcroft-Gault) 10.0 Glucose Level 228mg/dL (70-99) Calcium Level 7.6mg/dL (8.5-10.1) Test 06/21/16 07:45 Glucose (Fingerstick) 154mg/dL (70-99) Microbiology 06/04/16 Blood Culture - Final, Complete NO GROWTH AFTER 5 DAYS 06/17/16 Throat Culture - Final, Complete 06/17/16 - Final, Complete 06/06/16 Urine Culture - Final, Complete 06/06/16 Urine Culture Result 1 (KUSHAL) - Final, Complete Medications Current Medications Aspirin 324 mg 324 mg 1X ONCE PO Last administered on 06/01/16 12:59; Start at 12:45; Stop 06/01/16 at 12:48; Status DC Heparin Sodium/ Dextrose 500 ml @ 19 mls/hr CONT PRN IV SEE I/O RECORD Last administered on 06/02/16 14:45; Start 06/01/16 at 12:45; Stop 06/03/16 at 15:30; Status DC Heparin Sodium (Porcine) 1,950 unit PRN Q6HRS PRN IV FOR UFH LEVEL LESS THAN 0.2 Last administered on 06/01/16 13:01; Start 06/01/16 at 12:45; Stop 06/03/16 at 15:30; Status DC Ondansetron HCl (Zofran) 4 mg PRN Q8HRS PRN IV NAUSEA/VOMITING; Start 06/01/16 at 12:45; Stop 06/02/16 at 12:44; Status DC Morphine Sulfate 4 mg PRN Q2HR PRN IV PAIN Last administered on 06/01/16 14:03 ; Start 06/01/16 at 12:45; Stop 06/02/16 at 12:44; Status DC Nitroglycerin (Nitrostat) 0.4 mg PRN Q5MIN PRN SL CHEST PAIN Last administered on 06/01/16 14:03; Start 06/01/16 at 12:45; Stop 06/02/16 at 12:44; Status DC Amlodipine Besylate (Norvasc) 5 mg DAILYWLUN PO Last administered on 06/02/16 08:32; Start 06/01/16 at 14:00; Stop 06/02/16 at 16:02; Status DC Aspirin (Ecotrin) 81 mg DAILYWBKFT PO Last administered on 06/20/16 09:06; Start 06/01/16 at 14:00 Atorvastatin Calcium (Lipitor) 80 mg QHS PO Last administered on 06/20/16 21: 01; Start 06/01/16 at 21:00 Carvedilol (Coreg) 25 mg BIDWMEALS PO Last administered on 06/20/16 17:46; Start 06/01/16 at 17:00 Clopidogrel Bisulfate (Plavix) 75 mg DAILY PO Last administered on 06/01/16 14: 28; Start 06/01/16 at 14:00; Stop 06/02/16 at 08:41; Status DC Isosorbide Mononitrate (Imdur) 30 mg DAILY PO Last administered on 06/20/16 09 :06; Start 06/01/16 at 14:00 Furosemide (Lasix) 40 mg 1X ONCE IVP Last administered on 06/01/16 14:30; Start 06/01/16 at 14:00; Stop 06/01/16 at 14:23; Status DC Furosemide 40 mg 40 mg 1X ONCE IVP Last administered on 06/01/16 14:30; Start 06/01/16 at 14:30; Stop 06/01/16 at 14:38; Status DC Nitroglycerin/ Dextrose (Nitroglycerin Drip) 250 ml @ 0 mls/hr CONT PRN IV SEE I/O RECORD Last administered on 06/01/16 15:23; Start 06/01/16 at 14:30; Stop 06/02/16 at 16:02; Status DC Acetaminophen (Tylenol) 325 mg PRN Q6HRS PRN PO MILD PAIN / TEMP Last administered on 06/20/16 14:48; Start 06/01/16 at 15:00 Acetaminophen/ Hydrocodone Bitart (Lortab 5/325) 1 tab PRN Q6HRS PRN PO MODERATE TO SEVERE PAIN Last administered on 06/09/16 21:18; Start 06/01/16 at 15:00 Hydralazine HCl (Apresoline) 10 mg PRN Q4HRS PRN IVP ELEVATED BP, SEE COMMENTS Last administered on 06/14/16 11:16; Start 06/01/16 at 15:00 Ondansetron HCl (Zofran) 4 mg PRN Q8HRS PRN IV NAUSEA/VOMITING; Start 06/01/16 at 15:00 Albuterol Sulfate (Ventolin Neb Soln) 2.5 mg PRN Q4HRS PRN NEB SHORTNESS OF BREATH; Start 06/01/16 at 15:00 Insulin Aspart (Novolog) 0-7 UNITS TIDWMEALS SQ Last administered on 06/20/16 17:49; Start 06/01/16 at 17:00 Dextrose 12.5 gm PRN Q15MIN PRN IV SEE COMMENTS; Start 06/01/16 at 15:00 Info 1 each 1 each PRN DAILY PRN MC SEE COMMENTS Last administered on 06/03/16 09:38; Start 06/01/16 at 17:00; Stop 06/04/16 at 08:25; Status DC Magnesium Sulfate/ Dextrose (Magnesium Sulfate PREMIX 2GM) 50 ml @ 25 mls/hr PRN DAILY PRN IV for Mag < 1.7 on am labs; Start 06/02/16 at 11:15 Lidocaine/Sodium Bicarbonate (Buffered Lidocaine 1%) 3 ml 1X ONCE IJ Last administered on 06/02/16 14:03; Start 06/02/16 at 12:30; Stop 06/02/16 at 12:34; Status DC Heparin Sodium (Porcine) 2,400 unit 1X ONCE INT CAT Last administered on 14:04; Start 06/02/16 at 12:30; Stop 06/02/16 at 12:34; Status DC Heparin Sodium/ Sodium Chloride 60 unit 1X ONCE IV Last administered on 14:04; Start 06/02/16 at 12:30; Stop 06/02/16 at 12:34; Status DC Lisinopril (Prinivil) 20 mg DAILY PO Last administered on 06/06/16 09:22; Start 06/02/16 at 16:00; Stop 06/07/16 at 10:31; Status DC Hydralazine HCl 50 mg 50 mg BID PO Last administered on 06/06/16 20:55; Start 06/02/16 at 21:00; Stop 06/07/16 at 10:31; Status DC Sodium Chloride (Iv Sodium Chloride 0.9% 1000ml Bag) 1,000 ml @ 1,000 mls/hr Q1H PRN IV hypotension; Start 06/02/16 at 18:28; Stop 06/03/16 at 00:27; Status DC Diphenhydramine HCl (Benadryl) 25 mg 1X PRN PRN IV ITCHING; Start 06/02/16 at 18 :30; Stop 06/03/16 at 18:29; Status DC Diphenhydramine HCl (Benadryl) 25 mg 1X PRN PRN IV ITCHING; Start 06/02/16 at 18 :30; Stop 06/03/16 at 18:29; Status DC Sodium Chloride (Normal Saline Flush) 10 ml 1X PRN PRN IV AP catheter pack; Start 06/02/16 at 18:30; Stop 06/03/16 at 18:29; Status DC Sodium Chloride 10 ml 10 ml 1X PRN PRN 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; Start 06/02/16 at 18 :30; Stop 06/03/16 at 18:29; Status DC Sodium Chloride (Iv Sodium Chloride 0.9% 1000ml Bag) 1,000 ml @ 400 mls/hr Q2H30M PRN IV PATENCY; Start 06/02/16 at 18:28; Stop 06/03/16 at 06:27; Status DC Info (PHARMACY MONITORING -- do not chart) 1 each PRN DAILY PRN MC SEE COMMENTS ; Start 06/02/16 at 18:30 Info (PHARMACY MONITORING -- do not chart) 1 each PRN DAILY PRN MC SEE COMMENTS ; Start 06/03/16 at 10:30; Status UNV Info (PHARMACY MONITORING -- do not chart) 1 each PRN DAILY PRN MC SEE COMMENTS ; Start 06/03/16 at 10:30; Status Cancel Darbepoetin Malick (Aranesp) 60 mcg WEEKLYHS SQ Last administered on 06/17/16 21 :04; Start 06/03/16 at 21:00 Clopidogrel Bisulfate (Plavix) 75 mg DAILYWBKFT PO ; Start 06/04/16 at 08:00; Stop 06/04/16 at 08:00; Status DC Clopidogrel Bisulfate 75 mg 75 mg DAILYWBKFT PO Last administered on 06/04/16 08:25; Start 06/03/16 at 15:30; Stop 06/05/16 at 18:54; Status DC Sodium Chloride (Iv Sodium Chloride 0.9% 1000ml Bag) 1,000 ml @ 1,000 mls/hr Q1H PRN IV hypotension; Start 06/04/16 at 08:11; Stop 06/04/16 at 15:00; Status DC Diphenhydramine HCl (Benadryl) 25 mg 1X PRN PRN IV ITCHING; Start 06/04/16 at 08:15; Stop 06/04/16 at 15:00; Status DC Diphenhydramine HCl (Benadryl) 25 mg 1X PRN PRN IV ITCHING; Start 06/04/16 at 08:15; Stop 06/04/16 at 15:00; Status DC Sodium Chloride (Normal Saline Flush) 10 ml 1X PRN PRN IV AP catheter pack; Start 06/04/16 at 08:15; Stop 06/04/16 at 15:00; Status DC Sodium Chloride 10 ml 10 ml 1X PRN PRN 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; Start 06/04/16 at 08:15; Stop 06/04/16 at 15:00; Status DC Sodium Chloride (Iv Sodium Chloride 0.9% 1000ml Bag) 1,000 ml @ 400 mls/hr Q2H30M PRN IV PATENCY; Start 06/04/16 at 08:11; Stop 06/04/16 at 21:00; Status DC Info 1 each 1 each PRN DAILY PRN MC SEE COMMENTS; Start 06/04/16 at 08:15; Status UNV Magnesium Sulfate/ Dextrose 100 ml @ 100 mls/hr 1X ONCE IV Last administered on 06/04/16 12:36; Start 06/04/16 at 10:30; Stop 06/04/16 at 11:29; Status DC Ceftriaxone Sodium 1 gm/ Sodium Chloride 50 ml @ 100 mls/hr Q24H IV Last administered on 06/09/16 17:35; Start 06/06/16 at 16:00; Stop 06/10/16 at 15:02 ; Status DC Sodium Chloride 1,000 ml @ 1,000 mls/hr Q1H PRN IV hypotension; Start 06/07/16 at 08:48; Stop 06/07/16 at 14:47; Status DC Sodium Chloride (Iv Sodium Chloride 0.9% 1000ml Bag) 1,000 ml @ 400 mls/hr Q2H30M PRN IV PATENCY; Start 06/07/16 at 08:48; Stop 06/07/16 at 20:47; Status DC Info (PHARMACY MONITORING -- do not chart) 1 each PRN DAILY PRN MC SEE COMMENTS ; Start 06/07/16 at 09:00; Status UNV Lisinopril (Prinivil) 40 mg DAILY PO Last administered on 06/20/16 09:07; Start 06/08/16 at 09:00 Cyanocobalamin (Vitamin B-12) 1,000 mcg DAILY PO Last administered on 09:07; Start 06/07/16 at 15:30 Ferrous Sulfate (Feosol) 325 mg BID PO Last administered on 06/20/16 21:01; Start 06/07/16 at 21:00 Heparin Sodium (Porcine) 10,000 unit STK-MED ONCE .ROUTE ; Start 06/08/16 at 17: 14; Stop 06/08/16 at 17:15; Status DC Lidocaine/ Epinephrine 20 ml 20 ml STK-MED ONCE .ROUTE ; Start 06/08/16 at 17:14 ; Stop 06/08/16 at 17:15; Status DC Heparin Sodium/ Sodium Chloride 500 ml @ As Directed STK-MED ONCE .ROUTE ; Start 06/08/16 at 17:14; Stop 06/08/16 at 17:15; Status DC Fentanyl Citrate (Fentanyl 2ml Vial) 100 mcg STK-MED ONCE .ROUTE ; Start at 17:35; Stop 06/08/16 at 17:36; Status DC Midazolam HCl 2 mg 2 mg STK-MED ONCE .ROUTE ; Start 06/08/16 at 17:35; Stop at 17:36; Status DC Cefazolin Sodium (Ancef 1gm Ivpb For Omni) 50 ml @ As Directed STK-MED ONCE IV ; Start 06/08/16 at 17:36; Stop 06/08/16 at 17:37; Status DC Heparin Sodium/ Sodium Chloride 1,000 unit 1X ONCE IART Last administered on 18:04; Start 06/08/16 at 18:00; Stop 06/08/16 at 18:02; Status DC Midazolam HCl (Versed) 2 mg 1X ONCE IV Last administered on 06/08/16 18:04; Start 06/08/16 at 18:00; Stop 06/08/16 at 18:02; Status DC Fentanyl Citrate (Fentanyl 2ml Vial) 100 mcg 1X ONCE IV Last administered on 18:04; Start 06/08/16 at 18:00; Stop 06/08/16 at 18:02; Status DC Heparin Sodium (Porcine) 4300 unit 4,300 unit 1X ONCE IV Last administered on 06/08/16 18:05; Start 06/08/16 at 18:00; Stop 06/08/16 at 18:02; Status DC Cefazolin Sodium (Ancef 1gm Ivpb For Omni) 50 ml @ 100 mls/hr 1X ONCE IV Last administered on 06/08/16 18:06; Start 06/08/16 at 18:00; Stop 06/08/16 at 18:29; Status DC Lidocaine/ Epinephrine 10 ml 10 ml 1X ONCE IJ Last administered on 06/08/16 18:05; Start 06/08/16 at 18:00; Stop 06/08/16 at 18:02; Status DC Sodium Chloride 1,000 ml @ 1,000 mls/hr Q1H PRN IV hypotension; Start 06/09/16 at 14:32; Stop 06/09/16 at 20:31; Status DC Albumin Human (Albuminar) 200 ml @ 200 mls/hr 1X PRN PRN IV Hypotension; Start 06/09/16 at 14:45; Stop 06/09/16 at 20:44; Status DC Sodium Chloride (Normal Saline Flush) 10 ml 1X PRN PRN IV AP catheter pack; Start 06/09/16 at 14:45; Stop 06/10/16 at 14:44; Status DC Sodium Chloride 10 ml 10 ml 1X PRN PRN 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; Start 06/09/16 at 14:45; Stop 06/10/16 at 14:44; Status DC Sodium Chloride (Iv Sodium Chloride 0.9% 1000ml Bag) 1,000 ml @ 400 mls/hr Q2H30M PRN IV PATENCY; Start 06/09/16 at 14:32; Stop 06/10/16 at 02:31; Status DC Glimepiride 1 mg 1 mg DAILY PO Last administered on 06/12/16t 09:28; Start at 17:00; Stop 06/12/16 at 13:46; Status DC Sodium Chloride (Iv Sodium Chloride 0.9% 1000ml Bag) 1,000 ml @ 1,000 mls/hr Q1H PRN IV hypotension; Start 06/11/16 at 09:18; Stop 06/11/16 at 15:17; Status DC Acetaminophen (Tylenol) 500 mg 1X PRN PRN PO MILD PAIN / TEMP; Start 06/11/16 at 09:30; Stop 06/12/16 at 09:29; Status DC Diphenhydramine HCl (Benadryl) 25 mg 1X PRN PRN IV ITCHING; Start 06/11/16 at 09:30; Stop 06/12/16 at 09:29; Status DC Diphenhydramine HCl (Benadryl) 25 mg 1X PRN PRN IV ITCHING; Start 06/11/16 at 09:30; Stop 06/12/16 at 09:29; Status DC Sodium Chloride (Normal Saline Flush) 10 ml 1X PRN PRN IV AP catheter pack; Start 06/11/16 at 09:30; Stop 06/12/16 at 09:29; Status DC Sodium Chloride (Normal Saline Flush) 10 ml 1X PRN PRN 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; Start 06/11/16 at 09:30; Stop 06/12/16 at 09:29; Status DC Labetalol HCl 10 mg 10 mg PRN Q1HR PRN IVP SBP > 180; Start 06/11/16 at 09:30; Stop 06/12/16 at 09:29; Status DC Sodium Chloride (Iv Sodium Chloride 0.9% 1000ml Bag) 1,000 ml @ 400 mls/hr Q2H30M PRN IV PATENCY; Start 06/11/16 at 09:18; Stop 06/11/16 at 21:17; Status DC Info (PHARMACY MONITORING -- do not chart) 1 each PRN DAILY PRN MC SEE COMMENTS ; Start 06/11/16 at 09:30; Status UNV Amlodipine Besylate (Norvasc) 5 mg DAILY PO Last administered on 06/17/16 09: 37; Start 06/12/16 at 12:00; Stop 06/17/16 at 10:23; Status DC Glimepiride (Amaryl) 2 mg DAILY PO Last administered on 06/20/16 09:05; Start 06/13/16 at 09:00 Insulin Detemir 10 units 10 units QHS SQ Last administered on 06/20/16 21:07; Start 06/13/16 at 21:00 Sodium Chloride (Iv Sodium Chloride 0.9% 1000ml Bag) 1,000 ml @ 1,000 mls/hr Q1H PRN IV hypotension; Start 06/14/16 at 13:02; Stop 06/14/16 at 19:01; Status DC Sodium Chloride (Normal Saline Flush) 10 ml 1X PRN PRN IV AP catheter pack; Start 06/14/16 at 13:15; Stop 06/15/16 at 13:14; Status DC Sodium Chloride (Normal Saline Flush) 10 ml 1X PRN PRN 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; Start 06/14/16 at 13:15; Stop 06/15/16 at 13:14; Status DC Info (PHARMACY MONITORING -- do not chart) 1 each PRN DAILY PRN MC SEE COMMENTS ; Start 06/14/16 at 13:15; Status UNV Info 1 each 1 each PRN DAILY PRN MC SEE COMMENTS; Start 06/14/16 at 13:15; Status UNV Sodium Chloride (Iv Sodium Chloride 0.9% 1000ml Bag) 1,000 ml @ 1,000 mls/hr Q1H PRN IV hypotension; Start 06/16/16 at 07:54; Stop 06/16/16 at 13:53; Status DC Diphenhydramine HCl (Benadryl) 25 mg 1X PRN PRN IV ITCHING; Start 06/16/16 at 08:00; Stop 06/17/16 at 07:59; Status DC Diphenhydramine HCl (Benadryl) 25 mg 1X PRN PRN IV ITCHING; Start 06/16/16 at 08:00; Stop 06/17/16 at 07:59; Status DC Sodium Chloride (Normal Saline Flush) 10 ml 1X PRN PRN IV AP catheter pack; Start 06/16/16 at 08:00; Stop 06/17/16 at 07:59; Status DC Sodium Chloride (Normal Saline Flush) 10 ml 1X PRN PRN 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; Start 06/16/16 at 08:00; Stop 06/17/16 at 07:59; Status DC Labetalol HCl 10 mg 10 mg PRN Q1HR PRN IVP SBP > 180 Last administered on 11:04; Start 06/16/16 at 08:00; Stop 06/17/16 at 07:59; Status DC Sodium Chloride (Iv Sodium Chloride 0.9% 1000ml Bag) 1,000 ml @ 400 mls/hr Q2H30M PRN IV PATENCY; Start 06/16/16 at 07:54; Stop 06/16/16 at 19:53; Status DC Info (PHARMACY MONITORING -- do not chart) 1 each PRN DAILY PRN MC SEE COMMENTS ; Start 06/16/16 at 08:00; Status UNV Info (PHARMACY MONITORING -- do not chart) 1 each PRN DAILY PRN MC SEE COMMENTS ; Start 06/16/16 at 08:00; Status UNV Amlodipine Besylate (Norvasc) 10 mg DAILY PO Last administered on 06/20/16 09: 06; Start 06/17/16 at 11:00 Throat Lozenges 1 whitney 1 whitney PRN Q2HRS PRN PO SORE THROAT Last administered on 21:01; Start 06/17/16 at 11:15 Sodium Chloride (Iv Sodium Chloride 0.9% 1000ml Bag) 1,000 ml @ 1,000 mls/hr Q1H PRN IV hypotension; Start 06/18/16 at 07:44; Stop 06/18/16 at 13:43; Status DC Diphenhydramine HCl (Benadryl) 25 mg 1X PRN PRN IV ITCHING; Start 06/18/16 at 07:45; Stop 06/19/16 at 07:44; Status DC Diphenhydramine HCl (Benadryl) 25 mg 1X PRN PRN IV ITCHING; Start 06/18/16 at 07:45; Stop 06/19/16 at 07:44; Status DC Sodium Chloride (Normal Saline Flush) 10 ml 1X PRN PRN IV AP catheter pack; Start 06/18/16 at 07:45; Stop 06/19/16 at 07:44; Status DC Sodium Chloride (Normal Saline Flush) 10 ml 1X PRN PRN 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; Start 06/18/16 at 07:45; Stop 06/19/16 at 07:44; Status DC Labetalol HCl (Normodyne) 10 mg PRN Q1HR PRN IVP SBP > 180 Last administered on 06/18/16 10:56; Start 06/18/16 at 07:45; Stop 06/19/16 at 07:44; Status DC Clonidine HCl 0.1 mg 0.1 mg 1X PRN PRN PO SBP > 180 Last administered on 11:03; Start 06/18/16 at 07:45; Stop 06/19/16 at 07:44; Status DC Sodium Chloride (Iv Sodium Chloride 0.9% 1000ml Bag) 1,000 ml @ 400 mls/hr Q2H30M PRN IV PATENCY; Start 06/18/16 at 07:44; Stop 06/18/16 at 19:43; Status DC Info (PHARMACY MONITORING -- do not chart) 1 each PRN DAILY PRN MC SEE COMMENTS ; Start 06/18/16 at 07:45; Status UNV Ibuprofen 400 mg 400 mg PRN Q6HRS PRN PO INFLAMMATION Last administered on 06/19 11:58; Start 06/18/16 at 22:45 Sodium Chloride (Iv Sodium Chloride 0.9% 1000ml Bag) 1,000 ml @ 1,000 mls/hr Q1H PRN IV hypotension; Start 06/21/16 at 08:14; Stop 06/21/16 at 14:13 Sodium Chloride (Normal Saline Flush) 10 ml 1X PRN PRN IV AP catheter pack; Start 06/21/16 at 08:15; Stop 06/22/16 at 08:14 Sodium Chloride (Normal Saline Flush) 10 ml 1X PRN PRN 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; Start 06/21/16 at 08:15; Stop 06/22/16 at 08:14 Info (PHARMACY MONITORING -- do not chart) 1 each PRN DAILY PRN MC SEE COMMENTS ; Start 06/21/16 at 08:15; Status UNV Info (PHARMACY MONITORING -- do not chart) 1 each PRN DAILY PRN MC SEE COMMENTS ; Start 06/21/16 at 08:15; Status UNV Active Scripts Active Lisinopril 20 Mg Tablet 20 Mg PO QHS Isosorbide Mononitrate Er (Isosorbide Mononitrate) 30 Mg Tab.er.24h 30 Mg PO DAILY Hydralazine Hcl 50 Mg Tablet 100 Mg PO TID Carvedilol 12.5 Mg Tablet 25 Mg PO BIDWMEALS Atorvastatin Calcium 40 Mg Tablet 80 Mg PO QHS Aspirin Ec (Aspirin) 81 Mg Tablet.dr 81 Mg PO DAILYWBKFT Amlodipine Besylate 5 Mg Tablet 5 Mg PO DAILYWLUN Reported Clopidogrel (Clopidogrel Bisulfate) 75 Mg Tablet 75 Mg PO DAILY Glyburide 5 Mg Tablet 1 Tab PO BIDWMEALS Lisinopril 20 Mg Tablet 1 Tab PO DAILY Vitals/I & O Vital Sign - Last 24 Hours 06/20/16 06/20/16 06/20/16 06/20/16 14:40 17:46 19:16 20:00 Temp 99.1 98.7 99.1 98.7 Pulse 62 62 64 Resp 20 16 B/P 124/51 124/51 120/50 Pulse Ox 94 91 O2 Delivery Room Air Room Air Room Air O2 Flow Rate 2.0 06/20/16 06/21/16 06/21/16 06/21/16 23:01 03:27 07:20 08:00 Temp 99.1 98.6 98.7 99.1 98.6 98.7 Pulse 64 64 65 Resp 18 16 16 B/P 134/46 137/50 137/51 Pulse Ox 94 91 99 O2 Delivery Room Air Room Air Room Air Room Air Intake and Output 06/20/16 06/20/16 06/21/16 15:00 23:00 07:00 Intake Total 1300 ml 150 ml Balance 1300 ml 150 ml CASTLE,NIAL K III DO Jun 21, 2016 10:45
--- NOTE | 2016-06-21 10:59 | PDOC ---
Renal-Progress Notes Subjective Notes Notes NONE History of Present Illness Hx of present illness NO CHANGE Vitals Vitals Vital Signs Date Time Temp Pulse Resp B/P Pulse Ox O2 Delivery O2 Flow Rate FiO2 06/21/16 08:00 Room Air 06/21/16 07:20 98.7 65 16 137/51 99 98.7 06/20/16 20:00 2.0 Weight Weight [ ] I.O. Intake and Output Intake and Output 06/21/16 06:59 Intake Total 1450 ml Balance 1450 ml Intake Oral 1450 ml # Voids 2 Labs Labs Laboratory Tests Test 06/20/16 17:03 06/20/16 20:51 06/21/16 04:50 06/21/16 07:45 Glucose (Fingerstick) 219mg/dL (70-99) 276mg/dL (70-99) 154mg/dL (70-99) White Blood Count 3.9x10^3/uL (4.0-11.0) Red Blood Count 2.48x10^6/uL (3.50-5.40) Hemoglobin 7.6g/dL (12.0-15.5) Hematocrit 22.8% (36.0-47.0) Mean Corpuscular Volume 92fL (79-100) Mean Corpuscular Hemoglobin 31pg (25-35) Mean Corpuscular Hemoglobin Concent 33g/dL (31-37) Red Cell Distribution Width 13.9% (11.5-14.5) Platelet Count 174x10^3/uL (140-400) Neutrophils (%) (Auto) 48% (31-73) Lymphocytes (%) (Auto) 36% (24-48) Monocytes (%) (Auto) 10% (0-9) Eosinophils (%) (Auto) 6% (0-3) Basophils (%) (Auto) 1% (0-3) Neutrophils # (Auto) 1.9x10^3uL (1.8-7.7) Lymphocytes # (Auto) 1.4x10^3/uL (1.0-4.8) Monocytes # (Auto) 0.4x10^3/uL (0.0-1.1) Eosinophils # (Auto) 0.2x10^3/uL (0.0-0.7) Basophils # (Auto) 0.0x10^3/uL (0.0-0.2) Sodium Level 140mmol/L (136-145) Potassium Level 3.8mmol/L (3.5-5.1) Chloride Level 102mmol/L (98-107) Carbon Dioxide Level 26mmol/L (21-32) Anion Gap 12 (6-14) Blood Urea Nitrogen 58mg/dL (7-20) Creatinine 4.5mg/dL (0.6-1.0) Estimated GFR (Cockcroft-Gault) 10.0 Glucose Level 228mg/dL (70-99) Calcium Level 7.6mg/dL (8.5-10.1) Micro Micro Microbiology 06/04/16 Blood Culture - Final, Complete NO GROWTH AFTER 5 DAYS 06/17/16 Throat Culture - Final, Complete 06/17/16 - Final, Complete 06/06/16 Urine Culture - Final, Complete 06/06/16 Urine Culture Result 1 (KUSHAL) - Final, Complete Review of Systems Constitutional: yes: alert, oriented Ears/Nose/Throat: Yes: no symptom reported Eyes: Yes: no symptom reported Pulmonary: Yes no symptom reported Cardiovascular: Yes no symptom reported Gastrointestional: Yes: constipation Genitourinary: Yes: no symptom reported Musculoskeletal: Yes: muscle stiffness Physical Exam General Appearance: no apparent distress Skin: warm Respiratory: bilateral CTA Heart: S1S2, RRR Abdomen: soft, bowel sounds present Neurology: alert, oriented Assessment Assessment IMP NEW ESRD ANEMIA HTN DM II PLAN HD TODAY UF TO DW D/C PLANS NOTED WILL HD HERE MWF TILL INSURANCE ISSUES STRAIGHTENED OUT FOR OP HD UPDATED DAUGHTER ЕЛЕНА MANZANO MD Jun 21, 2016 10:59
[2016-06-21] MEDS: CYANOCOBALAMIN (VITAMIN B-12) 1,000 MCG TABLET. PO SCH (12:01)
[2016-06-21] MEDS: GLIMEPIRIDE 2 MG TABLET PO SCH (12:01)
[2016-06-21] MEDS: FERROUS SULFATE 325 MG TABLET PO SCH (12:01)
[2016-06-21] MEDS: ASPIRIN ENTERIC COATED 81 MG TABLET.DR. PO SCH (12:02)
[2016-06-21] MEDS: ISOSORBIDE MONONITRATE ER 30 MG TAB.ER.24H PO SCH (12:04)
[2016-06-21] MEDS: LISINOPRIL 40 MG TABLET. PO SCH (12:05)
[2016-06-21] MEDS: CARVEDILOL 12.5 MG TABLET PO SCH (12:05)
[2016-06-21] MEDS: AMLODIPINE BESYLATE 10 MG TABLET PO SCH (12:06)
[2016-06-21] MEDS ORDERED: INSU100I27 SQ (15:09)
[2016-06-21] MEDS ORDERED: GLIM2TAB PO (15:12)
[2016-06-21 15:31] VITALS: BP 133/54
--- NOTE | 2016-07-01 18:19 | DS ---
DATE OF DISCHARGE: 06/21/2016 ADMISSION DIAGNOSES: Non-ST elevated acute myocardial infarction and chronic renal disease. DISCHARGE DIAGNOSES: Resolving acute myocardial infarction, chronic end-stage renal disease. The patient is now being set up for dialysis. HOSPITAL COURSE: The patient is a pleasant 61-year-old female who presented with elevated troponins and chest pain. We diagnosed her with a non-ST elevated acute myocardial infarction. She also has chronic renal failure, now is started on dialysis. Basically, we consulted cardiology. We did some dialysis. She has been in the hospital for a while waiting for outpatient dialysis to be arranged, but we have not been able to set up just yet. The plan is to let her go home and have her come to our Emergency Room every other day for outpatient dialysis. DISPOSITION: Home. ACTIVITY: As tolerated. DIET: Renal. MEDICATIONS: Please see the MRAD. TOTAL TIME ON DISCHARGE: 38 minutes. FINN PEARL DO DR: LUIS A/cris JOB#: [id number] / [id number]
== END 2016-06-21 16:50 | disposition home or self-care (01) | DRG 280 ==
LOC: ER 11:27 → 1 WEST ICU 12:47 → 2 SOUTH 06-05 00:16
PROVIDERS: ADMIT Internal Medicine; ATTEND Internal Medicine
PROC: 02H633Z Insertion of Infusion Device into Right Atrium, Percutaneous Approach (ICD-10-PCS; principal; 2016-06-02)
PROC: B244ZZZ Ultrasonography of Right Heart (ICD-10-PCS; 2016-06-02)
PROC: 5A1D60Z (ICD-10-PCS; 2016-06-02)
PROC: 02PA33Z Removal of Infusion Device from Heart, Percutaneous Approach (ICD-10-PCS; 2016-06-09)
PROC: 02H633Z Insertion of Infusion Device into Right Atrium, Percutaneous Approach (ICD-10-PCS; 2016-06-09)
PROC: B2141ZZ Fluoroscopy of Right Heart using Low Osmolar Contrast (ICD-10-PCS; 2016-06-09)
DX: I21.4 Non-ST elevation (NSTEMI) myocardial infarction (principal); I50.43 Acute on chronic combined systolic (congestive) and diastolic (congestive) heart failure; N18.6 End stage renal disease; N17.9 Acute kidney failure, unspecified; I13.2 Hypertensive heart and chronic kidney disease with heart failure and with stage 5 chronic kidney disease, or end stage renal disease; N39.0 Urinary tract infection, site not specified; E78.5 Hyperlipidemia, unspecified; E11.22 Type 2 diabetes mellitus with diabetic chronic kidney disease; D64.9 Anemia, unspecified; I25.10 Atherosclerotic heart disease of native coronary artery without angina pectoris; I25.5 Ischemic cardiomyopathy; K21.9 Gastro-esophageal reflux disease without esophagitis; M19.90 Unspecified osteoarthritis, unspecified site; M54.9 Dorsalgia, unspecified; R63.0 Anorexia; L40.9 Psoriasis, unspecified; Z82.49 Family history of ischemic heart disease and other diseases of the circulatory system; Z91.14 Patient's other noncompliance with medication regimen; Z91.19 Patient's noncompliance with other medical treatment and regimen; Z99.2 Dependence on renal dialysis; Z95.5 Presence of coronary angioplasty implant and graft; I25.2 Old myocardial infarction; Z68.27 Body mass index [BMI] 27.0-27.9, adult
CPT/HCPCS: 36415; 36556; 36558; 71010; 71020; 76700; 76937; 77001; 80048; 80053; 80061; 80069; 80074; 81001; 82607; 82728; 82746; 82947; 83036; 83540; 83550; 83735; 83880; 83970; 84484; 85027; 85045; 85520; 85610; 85730; 86704; 86706; 87040; 87070; 87086; 87641; 87804; 87880; 93005; 93306; 94250; 94640; 94760; 96374; A4215; C1750; C1769; C1892; J0360; J0690; J0696; J0881; J1815; J1940; J2250; J2270; J3010; J3475; J3490; 99291-25

== ENCOUNTER 2016-06-25 09:13 | Inpatient (IN) | payer SELFPAY ==
[~2016-06-25] VITALS: Ht 165.1 cm; Wt 75.7 kg
[~2016-06-25 09:13] MED LIST changes: +GLIM2TAB PO; +INSU100I27 SQ
[2016-06-25 09:42] LABS: POTASSIUM ISTAT 5.4 mmol/L (3.5-5.0)
--- NOTE | 2016-06-25 10:02 | ED.ADGEN ---
Past Medical History Past Medical History: CAD, CHF, Diabetes-Type II, Hypertension, Other Additional Past Medical Histor: PSORASIS Past Surgical History: Angioplasty, Coronary Bypass Surgery, Other Additional Past Surgical Histo: 2L fluid removed from lungs, coronary angiography Alcohol Use: None Drug Use: None Adult General Chief Complaint Chief Complaint: DIALYSIS PROBLEM HPI HPI Patient is a 61 year old woman, history of end-stage renal disease on hemodialysis, hypertension, CHF, psoriasis, who presents to the emergency department for dialysis. Currently patient does not have a dialysis Center, and has been instructed to present to the emergency department Tuesday and Tuesday for dialysis. Patient did miss her Tuesday dialysis as she was not feeling well. At this time she is denying all complaints. Patient is primarily [place] speaking, translation is assisted by her daughter at bedside per their request. Patient denies any chest pain or shortness breath, nausea vomiting, any fevers or chills, any weakness emesis or tingling. No pain or drainage at her dialysis site. Received a full dialysis without, patient on Tuesday. Per protocol in the ED, an i-STAT chemistry is obtained upon patient's arrival. Review of Systems Review of Systems Constitutional: Denies fever or chills. [] Eyes: Denies change in visual acuity. [] HENT: Denies nasal congestion or sore throat. [] Respiratory: Denies cough or shortness of breath. [] Cardiovascular: Denies chest pain or edema. [] GI: Denies abdominal pain, nausea, vomiting, bloody stools or diarrhea. [] : Denies dysuria. [] Musculoskeletal: Denies back pain or joint pain. [] Integument: Denies rash. [] Neurologic: Denies headache, focal weakness or sensory changes. [] Endocrine: Denies polyuria or polydipsia. [] Lymphatic: Denies swollen glands. [] Psychiatric: Denies depression or anxiety. [] Denies all complaints at this time, presenting for dialysis. Allergies Allergies Allergies Coded Allergies Type Severity Reaction Last Updated Verified No Known Drug Allergies 06/22/15 No Physical Exam Physical Exam Constitutional: Well developed, well nourished, no acute distress, non-toxic appearance. [] HENT: Normocephalic, atraumatic, bilateral external ears normal, oropharynx moist, no oral exudates, nose normal. [] Eyes: PERRLA, EOMI, conjunctiva normal, no discharge. [] Neck: Normal range of motion, no tenderness, supple, no stridor. [] Cardiovascular:Heart rate regular rhythm, no murmur, S1, S2, rubs or gallops. [] Lungs & Thorax: Diminished breath sounds at bases bilaterally, no rhonchi, no rales, no wheezing, rhonchi, rales. [Patient with right-sided subclavian catheter in place, site is clean dry intact and nontender.] Abdomen: Bowel sounds normal, soft, no tenderness, no masses, no pulsatile masses. [] Skin: Warm, dry, no erythema, no rash. [] Back: No tenderness, no CVA tenderness. [] Extremities: No tenderness, no cyanosis, no clubbing, ROM intact, no edema. Negative Homans sign. [] Neurologic: Alert and oriented X 3, normal motor function, normal sensory function, no focal deficits noted. [] Psychologic: Affect normal, judgement normal, mood normal. [] Current Patient Data Vital Signs Vital Signs Date Time Temp Pulse Resp B/P Pulse Ox O2 Delivery O2 Flow Rate FiO2 06/25/16 10:18 65 160/72 99 Room Air 06/25/16 09:30 98.5 16 98.5 Lab Values Laboratory Tests Test 06/25/16 09:35 POC Hemoglobin 8.8g/dL (12-15) L POC Hematocrit 26% (36-40) L POC Sodium 136mmol/L (135-145) POC Potassium 5.4mmol/L (3.5-5.0) H POC Chloride 104mmol/L (98-110) POC Total CO2 22mmol/L (23-32) L Anion Gap 16mmol/L (6-14) H POC Blood Urea Nitrogen 65mg/dL (8-26) H POC Creatinine 5.1mg/dL (0.5-1.4) H Glucose Level 201mg/dL (70-99) H POC Ionized Calcium (Ab) 0.98mmol/L (1.13-1.32) L Laboratory Tests 06/25/16 09:35 EKG EKG Not indicated. [] Radiology/Procedures Radiology/Procedures Not indicated. [] Course & Med Decision Making Course & Med Decision Making Pertinent Labs and Imaging studies reviewed. (See chart for details) Patient with no complaints at this time, presented for dialysis. Patient's i- STAT potassium is 5.4, glucose of 201, hemoglobin of 8.8. Hemoglobin of 7.6 on previous laboratory studies. I did discuss these findings with patient and daughter bedside, patient is agreeable to receiving dialysis today in the emergency department. Nephrology was paged, above discussed with Dr. Rosa of nephrology, patient will require admission to the hospital for emergent hemodialysis, plan to then be discharged once HD is obtained. I discussed this with Dr. Abad of internal medicine, patient accepted to her service for admission for hyperkalemia and emergent dialysis with plan as above. Patient remained stable and comfortable transferred for dialysis without issue. Dragon Disclaimer Dragon Disclaimer This electronic medical record was generated, in whole or in part, using a voice recognition dictation system. Departure Impression: Primary Impression: Hyperkalemia Additional Impression: ESRD (end stage renal disease) on dialysis Disposition: ADMITTED INPATIENT Admitting Physician: Sylvia Abad Condition: STABLE Problem Qualifiers TAM BURRELL DO Jun 25, 2016 10:02
[2016-06-25] MEDS ORDERED: CLONIDINE HCL 0.1 MG TABLET PO PRN (10:30)
[2016-06-25] MEDS ORDERED: DIPHENHYDRAMINE 50 MG/ML VIAL IV PRN ×2 (10:30)
[2016-06-25] MEDS ORDERED: DIALYSIS PATIENT. MC PRN (10:30)
[2016-06-25] MEDS ORDERED: IV NORMAL SALINE 1000ML BAG 1,000 ML IV PRN ×2 (10:30)
[2016-06-25] MEDS ORDERED: LABETALOL 20 MG/4 ML DISP.SYRIN. IVP PRN (10:30)
[2016-06-25] MEDS ORDERED: ACETAMINOPHEN 500 MG TABLET PO PRN (10:30)
[2016-06-25] MEDS ORDERED: 0.9 % SODIUM CHLORIDE 10 ML DISP.SYRIN. IV PRN ×2 (10:30)
--- NOTE | 2016-06-25 10:43 | ACF ---
Admission Forms Criteria RENAL FAILURE, CHRONIC Clinical Indications for Admission to Inpatient Care (Place 'X' for any and all applicable criteria): Admission is indicated for ANY ONE of the following (1)(2)(3)(4)(5): [X]I. Inpatient admission required rather than observation care (Use Renal Failure, Chronic: Observation Care Criteria as appropriate) because of ANY ONE of the following: [X]a) Volume overload or uremic symptoms (eg, clinically significant pulmonary edema, hypertension, pericarditis, acidosis) too severe for, or not responsive (eg, for over 24 hours) to emergency department or observation care dialysis or treatment regimen (11) [ ]b) Hemodynamic instability that is severe or persistent [ ]c) Respiratory distress that is severe or persistent (11) [ ]d) Clinically significant electrolyte abnormality that requires inpatient care (eg,hyperkalemia with severe ECG findings)[B] [ ]e) Supplement O2 or respiratory therapy for over 24hrs that is performable only in acute inpatient setting [ ]f) Continuous IV infusion of anticoagulation, platelet inhibitor, vasoactive, or Antiarrhythmic medication (15), [ ]g) Pulmonary artery catheter monitoring [ ]h) Temporary pacemaker placement [ ]i) Emergent pericardiocentesis [ ]j) Other condition, treatment or monitoring requiring inpatient admission [ ]II. Unexplained syncope [A] [ ]III. Recurrent seizures [ ]IV. Severe infections not treatable in outpatient setting (eg, peritonitis)(9 ) [ ]V. Cardiac arrhythmias of immediate concern [ ]. Encephalopathy [ ]VII.Bleeding abnormalities (eg, platelet dysfunction) with active (eg, gastrointestinal) bleeding Extended stay beyond goal length of stay may be needed for (3)(4)(35)(36): [ ]a) Continuing uremic complications [ ]b) Comorbidities or complications The original [employer] [facility] content created by [employer] has been revised. The portions of the content which have been revised are identified through the use of italic text or in bold, and [employer] [facility] [employer] has neither reviewed nor approved the modified material. All other unmodified content is copyright [employer]. Please see references footnoted in the original [employer] [facility] edition 2016 Admission Criteria Met?: Yes HERI ESPOSITO Jun 25, 2016 10:43
[2016-06-25] MEDS ORDERED: AMLODIPINE BESYLATE 5 MG TABLET PO SCH (12:00)
--- NOTE | 2016-06-25 13:12 | PDOC ---
Provider Note Provider Note 23 hr admit and dc done, JOb # [id number] MICHAEL GEE MD Jun 25, 2016 13:12
[2016-06-25 15:04] VITALS: BP 153/63
[2016-06-25 15:10] VITALS: BP 153/63
[2016-06-25] MEDS ORDERED: CARVEDILOL 12.5 MG TABLET PO SCH (17:00)
[2016-06-25] MEDS ORDERED: GLYBURIDE 5 MG TABLET PO SCH (17:00)
[2016-06-25] MEDS ORDERED: ATORVASTATIN CALCIUM 40 MG TABLET. PO SCH (21:00)
[2016-06-25] MEDS ORDERED: INSULIN DETEMIR 300 UNITS/3 ML INSULN.PEN. SQ SCH (21:00)
--- NOTE | 2016-06-26 02:10 | SSS ---
ADMIT DATE: 06/25/2016 CHIEF COMPLAINT: "Do dialysis." HISTORY OF PRESENT ILLNESS: The patient is a middle-aged 61-year-old female who does not speak [place] Citizen, but the daughter always comes to bring her to dialysis Tuesday, Tuesday and Tuesday and speaks [place] Citizen, coming in because she missed dialysis on Tuesday because she was not feeling well and now is having dialysis, currently seen on dialysis. No symptoms. She unfortunately is self pay, hence no outpatient dialysis has been set up yet. She was last here on May 2016 for congestive heart failure. She has chronic congestive heart failure, history of NSTEMI, CKD, ischemic cardiomyopathy, malignant hypertension which has resolved, dyslipidemia, anemia of chronic disease, psoriasis, history of UTI and diabetes type 2. Again, the patient denies any symptoms. Still has scripts at home, so the patient will be sent home after dialysis today. PAST MEDICAL HISTORY: Ischemic cardiomyopathy, ESRD, NSTEMI, anemia, hyperlipidemia, psoriasis, CAD, UTI, diabetes. PAST SURGICAL HISTORY: Ureteral stent placement, PCI placement in 2015. FAMILY HISTORY: CAD. SOCIAL HISTORY: No smoking, no alcohol, no street drugs. Lives with family. ALLERGIES: None. REVIEW OF SYSTEMS: Denies all 14-point systems reviewed. PHYSICAL EXAMINATION: GENERAL: Awake, alert, oriented x 3, not in acute respiratory distress. HEENT: Unremarkable. LUNGS: Clear to auscultation bilaterally. CARDIOVASCULAR: Normal rate and rhythm. No murmurs, rubs or gallops. ABDOMEN: Soft, flabby, nontender, normoactive bowel sounds. GENITALIA: Appropriate for age. EXTREMITIES: No edema. Pulses full and equal. . ASSESSMENT: 1. End-stage renal disease, on dialysis Tuesday, Tuesday and Tuesday. 2. Chronic systolic heart failure. 3. Non-ST elevation myocardial infarction, chronic, stable. 4. Coronary artery disease, chronic, stable. 5. Ischemic cardiomyopathy, chronic, stable. 6. Hypertension. 7. Diabetes type 2. 8. Psoriasis, chronic, stable. 9. Scottish speaking. 10. Documentation of noncompliance due to financial troubles. PLAN OF CARE: Dialysis today. Follow up with PCP. Establish PCP care. Working on getting outpatient dialysis care of social worker psychiatric/Medicare Medicaid discussed with the patient and the daughter at bedside. MICHAEL GEE MD DR: /cris JOB#: [id number] / [id number]
[2016-06-26] MEDS ORDERED: ASPIRIN ENTERIC COATED 81 MG TABLET.DR. PO SCH (08:00)
[2016-06-26] MEDS ORDERED: CLOPIDOGREL BISULFATE 75 MG TABLET PO SCH (08:00)
[2016-06-26] MEDS ORDERED: LISINOPRIL 20 MG TABLET PO SCH (09:00)
[2016-06-26] MEDS ORDERED: ISOSORBIDE MONONITRATE ER 30 MG TAB.ER.24H PO SCH (09:00)
== END 2016-06-25 15:38 | disposition home or self-care (01) | DRG 291 ==
LOC: ER 09:13 → 6 SOUTH 10:20
PROVIDERS: ADMIT Internal Medicine; ATTEND Internal Medicine
PROC: 5A1D00Z (ICD-10-PCS; principal; 2016-06-25)
DX: I13.2 Hypertensive heart and chronic kidney disease with heart failure and with stage 5 chronic kidney disease, or end stage renal disease (principal); N18.6 End stage renal disease; I50.22 Chronic systolic (congestive) heart failure; E87.5 Hyperkalemia; E11.22 Type 2 diabetes mellitus with diabetic chronic kidney disease; D63.8 Anemia in other chronic diseases classified elsewhere; E78.5 Hyperlipidemia, unspecified; I25.10 Atherosclerotic heart disease of native coronary artery without angina pectoris; I25.5 Ischemic cardiomyopathy; L40.9 Psoriasis, unspecified; Z82.49 Family history of ischemic heart disease and other diseases of the circulatory system; I25.2 Old myocardial infarction; Z87.440 Personal history of urinary (tract) infections; Z91.19 Patient's noncompliance with other medical treatment and regimen; Z99.2 Dependence on renal dialysis
CPT/HCPCS: 36415; 80047; 87340; 87341; J1815; 99285-25

== ENCOUNTER 2016-06-28 10:32 | Inpatient (IN) | payer OTHER ==
[~2016-06-28] VITALS: Ht 165.1 cm; Wt 75.7 kg
--- NOTE | 2016-06-28 12:58 | PHYS DOC ---
Past Medical History Past Medical History: CAD, CHF, Diabetes-Type II, Hypertension, Other Additional Past Medical Histor: PSORASIS Past Surgical History: Angioplasty, Coronary Bypass Surgery, Other Additional Past Surgical Histo: 2L fluid removed from lungs, coronary angiography Alcohol Use: None Drug Use: None Adult General Chief Complaint Chief Complaint: DIALYSIS PROBLEM HPI HPI Patient is a 61 year old female with ESRD on dialysis who presents with daughter for nausea and need for MWF dialysis. She does not have access to outpatient dialysis. She denies chest pain, dyspnea, abdominal pain, emesis, fever or chills, diarrhea, rhinorrhea. Review of Systems Review of Systems Constitutional: Denies fever or chills [] Eyes: Denies change in visual acuity, redness, or eye pain [] HENT: Denies nasal congestion or sore throat [] Respiratory: Denies cough or shortness of breath [] Cardiovascular: No additional information not addressed in HPI [] GI: Denies abdominal pain, vomiting, bloody stools or diarrhea [] : Denies dysuria or hematuria [] Musculoskeletal: Denies back pain or joint pain [] Integument: Denies rash or skin lesions [] Neurologic: Denies headache, focal weakness or sensory changes [] Endocrine: Denies polyuria or polydipsia [] Allergies Allergies Allergies Coded Allergies Type Severity Reaction Last Updated Verified No Known Drug Allergies 06/22/15 No Physical Exam Physical Exam Constitutional: Well developed, well nourished, no acute distress, non-toxic appearance. [] HENT: Normocephalic, atraumatic, bilateral external ears normal, oropharynx moist, nose normal. [] Eyes: PERRLA, EOMI. [] Neck: Normal range of motion, supple. [] Cardiovascular:Heart rate regular rhythm [] Lungs & Thorax: Bilateral breath sounds clear to auscultation. tunneled HD catheter to right upper chest [] Abdomen: Bowel sounds normal, soft, no tenderness. [] Skin: Warm, dry, no erythema, no rash. [] Back: Normal ROM. [] Extremities: No tenderness, ROM intact, no edema. [] Neurologic: Alert and oriented X 3, normal motor function, normal sensory function, no focal deficits noted. [] Psychologic: Affect normal, judgement normal, mood normal. [] Current Patient Data Vital Signs Vital Signs Date Time Temp Pulse Resp B/P Pulse Ox O2 Delivery O2 Flow Rate FiO2 06/28/16 12:55 70 18 175/74 98 Room Air 06/28/16 11:05 98.4 98.4 Lab Values Laboratory Tests Test 06/28/16 11:22 POC Hemoglobin 9.9g/dL (12-15) L POC Hematocrit 29% (36-40) L POC Sodium 136mmol/L (135-145) POC Potassium 4.2mmol/L (3.5-5.0) POC Chloride 100mmol/L (98-110) POC Total CO2 23mmol/L (23-32) Anion Gap 19mmol/L (6-14) H POC Blood Urea Nitrogen 42mg/dL (8-26) H POC Creatinine 4.3mg/dL (0.5-1.4) H Glucose Level 313mg/dL (70-99) H POC Ionized Calcium (Ab) 0.97mmol/L (1.13-1.32) L Laboratory Tests 06/28/16 11:22 Course & Med Decision Making Course & Med Decision Making Pertinent Labs and Imaging studies reviewed. (See chart for details) Laboratory evaluation is unremarkable. Discussed case with Dr. Lundy, nephrology , who recommends admission for dialysis. Case with Dr. Bass, who will admit. Dragon Disclaimer Dragon Disclaimer This electronic medical record was generated, in whole or in part, using a voice recognition dictation system. Departure Departure Impression: Primary Impression: ESRD (end stage renal disease) Disposition: ADMITTED INPATIENT Condition: STABLE Referrals: NO PCP (PCP) Jesus Alberto BEDNER MD Jun 28, 2016 12:58
[2016-06-28] MEDS ORDERED: ONDANSETRON PF 4 MG/2 ML VIAL. IV PRN (13:15)
[2016-06-28] MEDS ORDERED: IV NORMAL SALINE 1000ML BAG 1,000 ML IV PRN ×2 (14:12)
[2016-06-28] MEDS ORDERED: DIALYSIS PATIENT. MC PRN (14:15)
[2016-06-28] MEDS ORDERED: LABETALOL 20 MG/4 ML DISP.SYRIN. IVP PRN (14:15)
[2016-06-28] MEDS ORDERED: CLONIDINE HCL 0.1 MG TABLET PO PRN (14:15)
[2016-06-28] MEDS ORDERED: DIPHENHYDRAMINE 50 MG/ML VIAL IV PRN ×2 (14:15)
[2016-06-28 14:36] LABS: POTASSIUM ISTAT 4.2 mmol/L (3.5-5.0)
[2016-06-28 15:01] LABS: CALCIUM 7.9 mg/dL (8.5-10.1); CREATININE 4.6 mg/dL (0.6-1.0); GFR 9.8; POTASSIUM 4.2 mmol/L (3.5-5.1)
--- NOTE | 2016-06-28 15:01 | PDOC ---
Dialysis Progress Note Dialysis Note Dialysis Note Seen on Hemodialysis, tolerating treatment Well Vitals on Hemodialysis: 199/75 66 General Appearance: Awake: Alert Oriented x 3 Neck: No JVD or JVP Chest: CTA Dionte Heart: S1 S2 Abdomen - Soft NTND Extremities - No Edema ESRD : Dialysis as below F 180 NR 3.0 Hrs 3 K 2.5 Ca 140 Na 35 HC03 Qb 350 + Qd 500+ Heparin 0 Units Uf 0-1 Kgs or to dry weight as tolerated May give 25-50 gms of 25% Albumin if needed to maintain Hemodynamic stability Treatment plan reviewed and discussed with ems director Vitals Vital Signs Vital Signs Date Time Temp Pulse Resp B/P Pulse Ox O2 Delivery O2 Flow Rate FiO2 06/28/16 14:10 Room Air 06/28/16 13:53 75 16 176/82 98 06/28/16 11:05 98.4 98.4 Labs Last Labs Laboratory Tests Test 06/28/16 11:22 Bedside Hemoglobin 9.9g/dL (12-15) Bedside Hematocrit 29% (36-40) Bedside Sodium 136mmol/L (135-145) Bedside Potassium 4.2mmol/L (3.5-5.0) Bedside Chloride 100mmol/L (98-110) Bedside Total CO2 23mmol/L (23-32) Anion Gap 19mmol/L (6-14) Bedside Blood Urea Nitrogen 42mg/dL (8-26) Bedside Creatinine 4.3mg/dL (0.5-1.4) Glucose Level 313mg/dL (70-99) Bedside Ionized Calcium (Ab) 0.97mmol/L (1.13-1.32) Laboratory Tests Test 06/28/16 11:22 Bedside Hemoglobin 9.9g/dL (12-15) Bedside Hematocrit 29% (36-40) Bedside Sodium 136mmol/L (135-145) Bedside Potassium 4.2mmol/L (3.5-5.0) Bedside Chloride 100mmol/L (98-110) Bedside Total CO2 23mmol/L (23-32) Anion Gap 19mmol/L (6-14) Bedside Blood Urea Nitrogen 42mg/dL (8-26) Bedside Creatinine 4.3mg/dL (0.5-1.4) Glucose Level 313mg/dL (70-99) Bedside Ionized Calcium (Ab) 0.97mmol/L (1.13-1.32) Assessment Assessment Problems Medical Problems: (1) ESRD (end stage renal disease) Status: Acute Problems: Plan Plan of Care Problems Medical Problems: (1) ESRD (end stage renal disease) Status: Acute PALMA HERNANDEZ MD Jun 28, 2016 15:01
--- NOTE | 2016-06-28 15:50 | PDOC1 ---
History and Physical Date of Admission Date of Admission 06/28/16 Identification/Chief Complaint Chief Complaint HD Problems: Source Source: Caregiver History of Present Illness History of Present Illness 61yo F, was recently dced from hosp, new set up for ESRD HD WMF, comes for Hd, SINCE pt has medicaid pending, cannot set up an outpt HD for now. i talked to her daughter, pt is martiniquais speaking, pt feels good, no complains, has home meds. Past Medical History Cardiovascular: HTN, Hyperlipidemia Pulmonary: No pertinent hx, Other CENTRAL NERVOUS SYSTEM: Other GI: GERD Heme/Onc: No pertinent hx Hepatobiliary: No pertinent hx Psych: No pertinent hx Rheumatologic: No pertinent hx Infectious disease: No pertinent hx Renal/: No pertinent hx Endocrine: Diabetes Past Surgical History Past Surgical History: Cystoscopy, Other Family History Family History: Heart Disease Social History ALCOHOL: none Drugs: None Current Problem List Problem List Problems Medical Problems: (1) ESRD (end stage renal disease) Status: Acute Current Medications Current Medications Current Medications Medications (Trade) Dose Ordered Sig/[place] Start Time Stop Time Status Last Admin Dose Admin Clonidine HCl 0.1 mg 0.1 mg 1X PRN PRN 06/28/16 14:15 06/29/16 14:14 Diphenhydramine HCl (Benadryl) 25 mg 1X PRN PRN 06/28/16 14:15 06/29/16 14:14 Info (PHARMACY MONITORING -- do not chart) 1 each PRN DAILY PRN 06/28/16 14:15 Labetalol HCl (Normodyne) 10 mg PRN Q1HR PRN 06/28/16 14:15 06/29/16 14:14 Ondansetron HCl (Zofran) 4 mg PRN Q8HRS PRN 06/28/16 13:15 06/29/16 13:14 Sodium Chloride (Iv Sodium Chloride 0.9% 1000ml Bag) 1,000 ml @ 400 mls/hr Q2H30M PRN 06/28/16 14:12 06/29/16 02:11 Allergies Allergies Allergies Coded Allergies Type Severity Reaction Last Updated Verified No Known Drug Allergies 06/22/15 No ROS Review of System CONSTITUTIONAL: No fever or chills EYES: No recent changes SKIN: No rash or itching CARDIOVASCULAR: No chest pain, syncope, palpitations, or edema RESPIRATORY: No SOB or cough GASTROINTESTINAL: No nausea, vomiting or abdominal pain NEUROLOGICAL: No headaches or weakness ENDOCRINE: No cold or heat intolerance GENITOURINARY: No urgency or frequency of urination MUSCULOSKELETAL: No back pain or joint pain LYMPHATICS: No enlarged lymph nodes PSYCHIATRIC: No anxiety or depression Physical Exam Physical Exam GEN.: No apparent distress. Alert and oriented. HEENT: Head is normocephalic, atraumatic NECK: Supple. LUNGS: Clear to auscultation. HEART: RRR, S1, S2 present. Peripheral pulses intact ABDOMEN: Soft, nontender. Positive bowel sounds. EXTREMITIES: Without any cyanosis. NEUROLOGIC: Normal speech, normal tone PSYCHIATRIC: Normal affect, normal mood. SKIN: No ulcerations Vitals Vitals Vital Signs Date Time Temp Pulse Resp B/P Pulse Ox O2 Delivery O2 Flow Rate FiO2 06/28/16 14:10 Room Air 06/28/16 13:53 75 16 176/82 98 06/28/16 11:05 98.4 98.4 Labs Labs Laboratory Tests Test 06/28/16 11:22 06/28/16 14:40 Bedside Hemoglobin 9.9g/dL (12-15) Bedside Hematocrit 29% (36-40) Bedside Sodium 136mmol/L (135-145) Bedside Potassium 4.2mmol/L (3.5-5.0) Bedside Chloride 100mmol/L (98-110) Bedside Total CO2 23mmol/L (23-32) Anion Gap 19mmol/L (6-14) 13 (6-14) Bedside Blood Urea Nitrogen 42mg/dL (8-26) Bedside Creatinine 4.3mg/dL (0.5-1.4) Glucose Level 313mg/dL (70-99) 246mg/dL (70-99) Bedside Ionized Calcium (Ab) 0.97mmol/L (1.13-1.32) Sodium Level 141mmol/L (136-145) Potassium Level 4.2mmol/L (3.5-5.1) Chloride Level 103mmol/L (98-107) Carbon Dioxide Level 25mmol/L (21-32) Blood Urea Nitrogen 49mg/dL (7-20) Creatinine 4.6mg/dL (0.6-1.0) Estimated GFR (Cockcroft-Gault) 9.8 Calcium Level 7.9mg/dL (8.5-10.1) Laboratory Tests Test 06/28/16 11:22 06/28/16 14:40 Bedside Hemoglobin 9.9g/dL (12-15) Bedside Hematocrit 29% (36-40) Bedside Sodium 136mmol/L (135-145) Bedside Potassium 4.2mmol/L (3.5-5.0) Bedside Chloride 100mmol/L (98-110) Bedside Total CO2 23mmol/L (23-32) Anion Gap 19mmol/L (6-14) 13 (6-14) Bedside Blood Urea Nitrogen 42mg/dL (8-26) Bedside Creatinine 4.3mg/dL (0.5-1.4) Glucose Level 313mg/dL (70-99) 246mg/dL (70-99) Bedside Ionized Calcium (Ab) 0.97mmol/L (1.13-1.32) Sodium Level 141mmol/L (136-145) Potassium Level 4.2mmol/L (3.5-5.1) Chloride Level 103mmol/L (98-107) Carbon Dioxide Level 25mmol/L (21-32) Blood Urea Nitrogen 49mg/dL (7-20) Creatinine 4.6mg/dL (0.6-1.0) Estimated GFR (Cockcroft-Gault) 9.8 Calcium Level 7.9mg/dL (8.5-10.1) VTE Prophylaxis Ordered VTE Prophylaxis Devices: No VTE Pharmacological Prophylaxi: Yes Assessment/Plan Assessment/Plan 1. ESRD on HD WMF comes to hosp since no outpt HD set up CAD, CHF H/O CABG HTN DM2 Psoriasis SALLY LLOYD MD Jun 28, 2016 15:50
--- NOTE | 2016-06-28 15:54 | PDOC3 ---
Discharge Summary [facility] Date of Admission: Jun 28, 2016 Discharge Date: Jun 28, 2016 Admitting Diagnosis 1. ESRD on HD WMF comes to hosp since no outpt HD set up CAD, CHF H/O CABG HTN DM2 Psoriasis Problems: Final Diagnosis Problems Medical Problems: (1) ESRD (end stage renal disease) Status: Acute CONSULTS renal Brief Hospital Course 61yo F, was recently dced from hosp, new set up for ESRD HD WMF, comes for Hd, SINCE pt has medicaid pending, cannot set up an outpt HD for now. i talked to her daughter, pt is mexican speaking, pt feels good, no complains, has home meds. dc after HD. Patient History: Patient reports no known family medical history. Problems: Disposition home CONDITION AT DISCHARGE: Improved Scheduled Amlodipine Besylate (Amlodipine Besylate) 5 MG PO DAILYWLUN Aspirin (Aspirin Ec) 81 MG PO DAILYWBKFT Atorvastatin Calcium (Atorvastatin Calcium) 80 MG PO QHS Carvedilol (Carvedilol) 25 MG PO BIDWMEALS Clopidogrel Bisulfate (Clopidogrel) 75 MG PO DAILY (Reported) Glyburide (Glyburide) 1 TAB PO BIDWMEALS (Reported) Insulin Detemir (Levemir Flextouch) 20 UNIT SQ HS (Reported) Isosorbide Mononitrate (Isosorbide Mononitrate Er) 30 MG PO DAILY Lisinopril (Lisinopril) 1 TAB PO DAILY (Reported) SALLY LLOYD MD Jun 28, 2016 15:54
[2016-06-28 15:57] VITALS: BP 207/75
--- NOTE | 2016-06-29 13:35 | ACF ---
Admission Forms Criteria RENAL FAILURE, CHRONIC Clinical Indications for Admission to Inpatient Care (Place 'X' for any and all applicable criteria): Admission is indicated for ANY ONE of the following (1)(2)(3)(4)(5): [X]I. Inpatient admission required rather than observation care (Use Renal Failure, Chronic: Observation Care Criteria as appropriate) because of ANY ONE of the following: [ ]a) Volume overload or uremic symptoms (eg, clinically significant pulmonary edema, hypertension, pericarditis, acidosis) too severe for, or not responsive (eg, for over 24 hours) to emergency department or observation care dialysis or treatment regimen (11) [ ]b) Hemodynamic instability that is severe or persistent [ ]c) Respiratory distress that is severe or persistent (11) [ ]d) Clinically significant electrolyte abnormality that requires inpatient care (eg,hyperkalemia with severe ECG findings)[B] [ ]e) Supplement O2 or respiratory therapy for over 24hrs that is performable only in acute inpatient setting [ ]f) Continuous IV infusion of anticoagulation, platelet inhibitor, vasoactive, or Antiarrhythmic medication (15), [ ]g) Pulmonary artery catheter monitoring [ ]h) Temporary pacemaker placement [ ]i) Emergent pericardiocentesis [X]j) Other condition, treatment or monitoring requiring inpatient admission [ ]II. Unexplained syncope [A] [ ]III. Recurrent seizures [ ]IV. Severe infections not treatable in outpatient setting (eg, peritonitis)(9 ) [ ]V. Cardiac arrhythmias of immediate concern [ ]. Encephalopathy [ ]VII.Bleeding abnormalities (eg, platelet dysfunction) with active (eg, gastrointestinal) bleeding Extended stay beyond goal length of stay may be needed for (3)(4)(35)(36): [ ]a) Continuing uremic complications [ ]b) Comorbidities or complications The original [employer] content created by [employer] has been revised. The portions of the content which have been revised are identified through the use of italic text or in bold, and [email or web address] has neither reviewed nor approved the modified material. All other unmodified content is copyright [employer]. Please see references footnoted in the original [facility] edition 2016 Admission Criteria Met?: Yes OMKAR CARMONA Jun 29, 2016 13:35
== END 2016-06-28 18:22 | disposition home or self-care (01) | DRG 291 ==
LOC: ER 10:32 → 5 NORTH 13:00
PROVIDERS: ADMIT Internal Medicine; ATTEND Internal Medicine
PROC: 5A1D00Z (ICD-10-PCS; principal; 2016-06-28)
DX: I13.0 Hypertensive heart and chronic kidney disease with heart failure and stage 1 through stage 4 chronic kidney disease, or unspecified chronic kidney disease (principal); N18.6 End stage renal disease; I50.9 Heart failure, unspecified; K21.9 Gastro-esophageal reflux disease without esophagitis; I25.10 Atherosclerotic heart disease of native coronary artery without angina pectoris; E78.5 Hyperlipidemia, unspecified; E11.22 Type 2 diabetes mellitus with diabetic chronic kidney disease; L40.9 Psoriasis, unspecified; Z95.1 Presence of aortocoronary bypass graft; Z09 Encounter for follow-up examination after completed treatment for conditions other than malignant neoplasm; Z99.2 Dependence on renal dialysis
CPT/HCPCS: 36415; 80047; 80048; J3490; 99285-25

== ENCOUNTER 2017-07-11 14:27 | Inpatient (IN) | payer OTHER ==
[2017-07-11] MEDS ORDERED: 0.9 % SODIUM CHLORIDE 10 ML DISP.SYRIN. IV (15:15)
[2017-07-11 15:24] LABS: ADD MAN DIFF? YES; BASO # 0.1 x10^3/uL (0.0-0.2); BASO % 1 % (0-3); EOS # 0.2 x10^3/uL (0.0-0.7); EOS % 1 % (0-3); HEMATOCRIT 22.7 % (36.0-47.0); HEMOGLOBIN 7.5 g/dL (12.0-15.5); LYMPH # 0.9 x10^3/uL (1.0-4.8); LYMPH % 6 % (24-48); MEAN CORPUSCULAR HEMOGLOBIN 31 pg (25-35); MEAN CORPUSCULAR HGB CONC 33 g/dL (31-37); MEAN CORPUSCULAR VOLUME 95 fL (79-100); MONO # 0.8 x10^3/uL (0.0-1.1); MONO % 5 % (0-9); NEUT # 13.8 x10^3uL (1.8-7.7); NEUT % 87 % (31-73); PLATELET COUNT 264 x10^3/uL (140-400); RED BLOOD COUNT 2.39 x10^6/uL (3.50-5.40); WHITE BLOOD COUNT 15.8 x10^3/uL (4.0-11.0)
[2017-07-11] MEDS: FAMOTIDINE 20 MG/2 ML VIAL IVP (15:42)
[2017-07-11] MEDS: ONDANSETRON PF 4 MG/2 ML VIAL. IV (15:42)
[2017-07-11 15:49] LABS: ANION GAP 20 (6-14); BLOOD UREA NITROGEN 84 mg/dL (7-20); BUN/CREATININE RATIO 9 (6-20); CALCIUM 7.2 mg/dL (8.5-10.1); CARBON DIOXIDE 21 mmol/L (21-32); CHLORIDE 98 mmol/L (98-107); CREATININE 9.7 mg/dL (0.6-1.0); GFR 4.1; GLUCOSE 191 mg/dL (70-99); POTASSIUM 4.5 mmol/L (3.5-5.1); SODIUM 139 mmol/L (136-145)
[2017-07-11 15:55] LABS: ALBUMIN 2.6 g/dL (3.4-5.0); ALBUMIN/GLOBULIN RATIO 0.5 (1.0-1.7); ALK PHOS 86 U/L (46-116); ALT (SGPT) 9 U/L (14-59); AST (SGOT) 13 U/L (15-37); LIPASE 107 U/L (73-393); TOTAL BILIRUBIN 0.2 mg/dL (0.2-1.0); TOTAL PROTEIN 7.7 g/dL (6.4-8.2)
[2017-07-11 16:55] LABS: % BANDS 9 % (0-9); % EOS 2 % (0-5); % LYMPHS 5 % (24-48); % SEGS 84 % (35-66); OVALOCYTES FEW; PLT ESTIMATE ADEQUATE (ADEQUATE)
[2017-07-11] MEDS: ALTEPLASE 2 MG VIAL INT CAT ×2 (18:10→18:11)
[2017-07-11] MEDS ORDERED: DEXTROSE 50% 25 GM / 50ML DISP.SYRIN. IV (21:30)
[2017-07-11] MEDS: INSULIN DETEMIR 300 UNITS/3 ML INSULN.PEN. SQ (22:00)
[2017-07-11] MEDS: ATORVASTATIN CALCIUM 40 MG TABLET. PO (22:57)
[2017-07-11] MEDS: amLODIPine BESYLATE 5 MG TABLET PO (22:58)
[2017-07-12 03:50] LABS: POC GLUCOSE 105 mg/dL (70-99)
[2017-07-12 05:03] LABS: ADD MAN DIFF? NO
[2017-07-12 05:10] LABS: BASO # 0.1 x10^3/uL (0.0-0.2); BASO % 0 % (0-3); EOS # 0.4 x10^3/uL (0.0-0.7); EOS % 3 % (0-3); LYMPH # 1.4 x10^3/uL (1.0-4.8); LYMPH % 10 % (24-48); MEAN CORPUSCULAR HEMOGLOBIN 31 pg (25-35); MEAN CORPUSCULAR HGB CONC 33 g/dL (31-37); MEAN CORPUSCULAR VOLUME 95 fL (79-100); MONO % 8 % (0-9); NEUT # 10.9 x10^3uL (1.8-7.7); NEUT % 80 % (31-73); PLATELET COUNT 242 x10^3/uL (140-400); RED BLOOD COUNT 2.14 x10^6/uL (3.50-5.40); WHITE BLOOD COUNT 13.8 x10^3/uL (4.0-11.0)
[2017-07-12 05:24] LABS: HEMATOCRIT 20.5 % (36.0-47.0); HEMOGLOBIN 6.7 g/dL (12.0-15.5)
[2017-07-12 05:46] LABS: ALBUMIN 2.3 g/dL (3.4-5.0); ALBUMIN/GLOBULIN RATIO 0.5 (1.0-1.7); ALK PHOS 70 U/L (46-116); ALT (SGPT) 6 U/L (14-59); ANION GAP 16 (6-14); AST (SGOT) 10 U/L (15-37); BLOOD UREA NITROGEN 87 mg/dL (7-20); BUN/CREATININE RATIO 8 (6-20); CARBON DIOXIDE 23 mmol/L (21-32); CHLORIDE 101 mmol/L (98-107); CREATININE 10.3 mg/dL (0.6-1.0); GFR 3.8; GLUCOSE 97 mg/dL (70-99); POTASSIUM 4.2 mmol/L (3.5-5.1); SODIUM 140 mmol/L (136-145); TOTAL BILIRUBIN 0.2 mg/dL (0.2-1.0); TOTAL PROTEIN 6.7 g/dL (6.4-8.2)
[2017-07-12] MEDS: glyBURIDE 5 MG TABLET PO ×2 (08:00→16:54)
[2017-07-12] MEDS ORDERED: MAGNESIUM SULFATE 2GM 50 ML IV (09:15)
[2017-07-12 09:19] LABS: INR 1.2 (0.8-1.1); PROTHROMBIN TIME PATIENT 14.8 SEC (11.7-14.0)
[2017-07-12 09:20] LABS: PARTIAL THROMBOPLASTIN TIME 37 SEC (24-38)
[2017-07-12] MEDS ORDERED: IV NORMAL SALINE 1000ML BAG 1,000 ML IV ×2 (09:35)
[2017-07-12] MEDS ORDERED: diphenhydrAMINE 50 MG/ML VIAL IV ×2 (09:45)
[2017-07-12] MEDS ORDERED: 0.9 % SODIUM CHLORIDE 10 ML DISP.SYRIN. IV ×2 (09:45)
[2017-07-12] MEDS ORDERED: DIALYSIS PATIENT. MC ×2 (09:45)
[2017-07-12] MEDS: INSULIN ASPART 300 UNITS/3 ML INSULN.PEN SQ ×2 (12:00→17:00)
[2017-07-12 13:58] LABS: POC GLUCOSE 88 mg/dL (70-99)
[2017-07-12] MEDS: FUROSEMIDE 40 MG TABLET. PO ×2 (14:00→14:06)
[2017-07-12] MEDS: CLOPIDOGREL BISULFATE 75 MG TABLET PO (14:06)
[2017-07-12] MEDS: amLODIPine BESYLATE 5 MG TABLET PO (14:06)
[2017-07-12] MEDS: ISOSORBIDE MONONITRATE ER 30 MG TAB.ER.24H PO (14:07)
[2017-07-12] MEDS: LISINOPRIL 20 MG TABLET PO (14:07)
[2017-07-12] MEDS: CARVEDILOL 12.5 MG TABLET. PO ×2 (14:08→17:00)
[2017-07-12 16:20] LABS: POC GLUCOSE 175 mg/dL (70-99)
[2017-07-12] MEDS: ACETAMINOPHEN 500 MG TABLET PO (16:54)
[2017-07-12] MEDS: ONDANSETRON ODT 4 MG TAB.RAPDIS. PO (17:50)
[2017-07-12] MEDS: ATORVASTATIN CALCIUM 40 MG TABLET. PO (21:04)
[2017-07-12] MEDS: DARBEPOETIN ALFA 60 MCG/0.3 ML DISP.SYRIN. SQ (21:05)
[2017-07-12] MEDS: INSULIN DETEMIR 300 UNITS/3 ML INSULN.PEN. SQ (21:12)
[2017-07-12 21:17] LABS: POC GLUCOSE 203 mg/dL (70-99)
[2017-07-13 06:34] LABS: HEMOGLOBIN 7.8 g/dL (12.0-15.5)
[2017-07-13 07:03] LABS: ALBUMIN 2.5 g/dL (3.4-5.0); ANION GAP 15 (6-14); BLOOD UREA NITROGEN 35 mg/dL (7-20); CALCIUM 7.8 mg/dL (8.5-10.1); CARBON DIOXIDE 28 mmol/L (21-32); CHLORIDE 98 mmol/L (98-107); CREATININE 6.3 mg/dL (0.6-1.0); GFR 6.8; GLUCOSE 75 mg/dL (70-99); PHOSPHORUS 5.5 mg/dL (2.6-4.7); POTASSIUM 3.6 mmol/L (3.5-5.1); SODIUM 141 mmol/L (136-145)
[2017-07-13 07:48] LABS: POC GLUCOSE 90 mg/dL (70-99)
[2017-07-13 07:48] LABS: POC GLUCOSE 47 mg/dL (70-99)
[2017-07-13] MEDS: INSULIN ASPART 300 UNITS/3 ML INSULN.PEN SQ ×4 (08:00→17:19)
[2017-07-13] MEDS: CLOPIDOGREL BISULFATE 75 MG TABLET PO (09:51)
[2017-07-13] MEDS: LISINOPRIL 20 MG TABLET PO (09:52)
[2017-07-13] MEDS: glyBURIDE 5 MG TABLET PO ×2 (09:52→16:39)
[2017-07-13] MEDS: CARVEDILOL 12.5 MG TABLET. PO ×2 (09:53→16:39)
[2017-07-13] MEDS: ISOSORBIDE MONONITRATE ER 30 MG TAB.ER.24H PO (09:54)
[2017-07-13] MEDS: amLODIPine BESYLATE 5 MG TABLET PO (09:54)
[2017-07-13] MEDS: FUROSEMIDE 40 MG TABLET. PO ×2 (09:55→13:30)
[2017-07-13] MEDS ORDERED: PIP/TAZO PER PHARMACY MC (11:30)
[2017-07-13 12:00] LABS: POC GLUCOSE 252 mg/dL (70-99)
[2017-07-13] MEDS: VANCOMYCIN 2 GM in IV DEXTROSE 5 %-0.2 % NACL 500 ML IV (13:20)
[2017-07-13] MEDS: PIPERACILLIN/TAZOBACTAM 2.25 GM in IV NORMAL SALINE 100ML 100 ML IV ×2 (13:26→21:41)
[2017-07-13] MEDS: VANCOMYCIN PER PHARMACY MC (15:40)
[2017-07-13 16:44] LABS: POC GLUCOSE 187 mg/dL (70-99)
[2017-07-13 21:27] LABS: POC GLUCOSE 267 mg/dL (70-99)
[2017-07-13] MEDS: LACTOBACILLUS RHAMNOSUS GG 1 CAPSULE. PO (21:41)
[2017-07-13] MEDS: ATORVASTATIN CALCIUM 40 MG TABLET. PO (21:42)
[2017-07-13] MEDS: INSULIN DETEMIR 300 UNITS/3 ML INSULN.PEN. SQ (21:45)
[2017-07-14] MEDS: VANCOMYCIN RANDOM LEVEL. MC (06:00)
[2017-07-14] MEDS: PIPERACILLIN/TAZOBACTAM 2.25 GM in IV NORMAL SALINE 100ML 100 ML IV ×3 (06:15→21:25)
[2017-07-14 06:22] LABS: ADD MAN DIFF? NO
[2017-07-14 06:30] LABS: BASO # 0.1 x10^3/uL (0.0-0.2); BASO % 1 % (0-3); EOS # 0.4 x10^3/uL (0.0-0.7); EOS % 4 % (0-3); LYMPH # 1.1 x10^3/uL (1.0-4.8); LYMPH % 12 % (24-48); MEAN CORPUSCULAR HEMOGLOBIN 32 pg (25-35); MEAN CORPUSCULAR HGB CONC 33 g/dL (31-37); MEAN CORPUSCULAR VOLUME 95 fL (79-100); MONO # 0.6 x10^3/uL (0.0-1.1); MONO % 6 % (0-9); NEUT # 7.4 x10^3uL (1.8-7.7); NEUT % 77 % (31-73); PLATELET COUNT 228 x10^3/uL (140-400); RED BLOOD COUNT 2.04 x10^6/uL (3.50-5.40); RED CELL DISTRIBUTION WIDTH 12.9 % (11.5-14.5); WHITE BLOOD COUNT 9.6 x10^3/uL (4.0-11.0)
[2017-07-14 06:38] LABS: HEMATOCRIT 19.5 % (36.0-47.0); HEMOGLOBIN 6.4 g/dL (12.0-15.5)
[2017-07-14 06:50] LABS: ALBUMIN 2.2 g/dL (3.4-5.0); ANION GAP 12 (6-14); BLOOD UREA NITROGEN 58 mg/dL (7-20); CALCIUM 6.6 mg/dL (8.5-10.1); CARBON DIOXIDE 27 mmol/L (21-32); CHLORIDE 95 mmol/L (98-107); CREATININE 8.3 mg/dL (0.6-1.0); GFR 4.9; GLUCOSE 230 mg/dL (70-99); MAGNESIUM 1.7 mg/dL (1.8-2.4); PHOSPHORUS 4.2 mg/dL (2.6-4.7); POTASSIUM 4.1 mmol/L (3.5-5.1); SODIUM 134 mmol/L (136-145)
[2017-07-14 08:13] LABS: SEDIMENTATION RATE 117 (0-25)
[2017-07-14 08:13] LABS: POC GLUCOSE 186 mg/dL (70-99)
[2017-07-14] MEDS: amLODIPine BESYLATE 5 MG TABLET PO (08:53)
[2017-07-14] MEDS: CARVEDILOL 12.5 MG TABLET. PO ×2 (08:53→18:19)
[2017-07-14] MEDS: LISINOPRIL 20 MG TABLET PO (08:54)
[2017-07-14] MEDS: LACTOBACILLUS RHAMNOSUS GG 1 CAPSULE. PO ×2 (08:54→21:24)
[2017-07-14] MEDS: CLOPIDOGREL BISULFATE 75 MG TABLET PO (08:55)
[2017-07-14] MEDS: FUROSEMIDE 40 MG TABLET. PO ×2 (08:55→15:40)
[2017-07-14] MEDS: glyBURIDE 5 MG TABLET PO ×2 (08:55→18:19)
[2017-07-14] MEDS: ISOSORBIDE MONONITRATE ER 30 MG TAB.ER.24H PO (08:55)
[2017-07-14] MEDS: INSULIN ASPART 300 UNITS/3 ML INSULN.PEN SQ ×3 (10:15→18:33)
[2017-07-14 10:33] LABS: C DIFF BY PCR Positive (Negative)
[2017-07-14 11:06] LABS: RETIC COUNT 0.9 % (0.5-2.5)
[2017-07-14 11:23] LABS: % SAT IRON 24 % (15-34); IRON,SERUM 43 ug/dL (50-170)
[2017-07-14 11:44] LABS: FERRITIN 286 ng/mL (8-252)
[2017-07-14 11:46] LABS: POC GLUCOSE 298 mg/dL (70-99)
[2017-07-14] MEDS: CALCIUM GLUCONATE 1,000 MG/10 ML VIAL. IVP ×3 (13:06→18:18)
[2017-07-14] MEDS: MAGNESIUM SULFATE 2GM 50 ML IV (13:07)
[2017-07-14] MEDS: CALCIUM CARBONATE 500 MG TABLET PO ×2 (13:08→18:19)
[2017-07-14] MEDS: FOLIC/VIT B COMP W-C (RENAL) TABLET. PO (13:08)
[2017-07-14] MEDS: HYALURONIDASE, HUMAN RECOMB. 150 UNIT/ML VIAL. IJ (16:31)
[2017-07-14 17:51] LABS: POC GLUCOSE 339 mg/dL (70-99)
[2017-07-14] MEDS: clonazePAM 0.5 MG TABLET PO (18:17)
[2017-07-14] MEDS: ATORVASTATIN CALCIUM 40 MG TABLET. PO (21:24)
[2017-07-14 21:51] LABS: POC GLUCOSE 342 mg/dL (70-99)
[2017-07-14] MEDS: INSULIN DETEMIR 300 UNITS/3 ML INSULN.PEN. SQ (21:54)
[2017-07-15] MEDS: PIPERACILLIN/TAZOBACTAM 2.25 GM in IV NORMAL SALINE 100ML 100 ML IV (05:52)
[2017-07-15 06:54] LABS: MAGNESIUM 2.3 mg/dL (1.8-2.4)
[2017-07-15 06:55] LABS: ALBUMIN 2.2 g/dL (3.4-5.0); ANION GAP 13 (6-14); BLOOD UREA NITROGEN 79 mg/dL (7-20); CALCIUM 7.7 mg/dL (8.5-10.1); CARBON DIOXIDE 26 mmol/L (21-32); CHLORIDE 94 mmol/L (98-107); CREATININE 9.4 mg/dL (0.6-1.0); GFR 4.3; GLUCOSE 143 mg/dL (70-99); PHOSPHORUS 3.6 mg/dL (2.6-4.7); POTASSIUM 4.1 mmol/L (3.5-5.1); SODIUM 133 mmol/L (136-145)
[2017-07-15] MEDS: INSULIN ASPART 300 UNITS/3 ML INSULN.PEN SQ ×3 (08:00→17:00)
[2017-07-15 08:03] LABS: POC GLUCOSE 118 mg/dL (70-99)
[2017-07-15] MEDS: CALCIUM CARBONATE 500 MG TABLET PO ×3 (09:51→16:30)
[2017-07-15] MEDS: LACTOBACILLUS RHAMNOSUS GG 1 CAPSULE. PO ×2 (09:52→20:31)
[2017-07-15] MEDS: FOLIC/VIT B COMP W-C (RENAL) TABLET. PO (09:52)
[2017-07-15] MEDS: ACETAMINOPHEN 500 MG TABLET PO ×2 (09:52→20:32)
[2017-07-15] MEDS: LISINOPRIL 20 MG TABLET PO (09:52)
[2017-07-15] MEDS: glyBURIDE 5 MG TABLET PO ×2 (09:53→17:00)
[2017-07-15] MEDS: ISOSORBIDE MONONITRATE ER 30 MG TAB.ER.24H PO (09:53)
[2017-07-15] MEDS: CLOPIDOGREL BISULFATE 75 MG TABLET PO (09:53)
[2017-07-15] MEDS: CARVEDILOL 12.5 MG TABLET. PO ×2 (09:53→17:00)
[2017-07-15] MEDS: FUROSEMIDE 40 MG TABLET. PO ×2 (09:54→14:00)
[2017-07-15] MEDS: amLODIPine BESYLATE 5 MG TABLET PO (09:54)
[2017-07-15] MEDS: VANCOMYCIN 125 MG/2.5 ML ORAL SOLUTION. PO ×4 (10:13→20:32)
[2017-07-15 11:27] LABS: CRYPTOSPORIDIUM EIA Negative (Negative)
[2017-07-15] MEDS: ONDANSETRON ODT 4 MG TAB.RAPDIS. PO (12:15)
[2017-07-15] MEDS ORDERED: IV NORMAL SALINE 1000ML BAG 1,000 ML IV (14:21)
[2017-07-15] MEDS ORDERED: 0.9 % SODIUM CHLORIDE 10 ML DISP.SYRIN. IV ×2 (14:30)
[2017-07-15] MEDS ORDERED: DIALYSIS PATIENT. MC ×2 (14:30)
[2017-07-15 14:43] LABS: POC GLUCOSE 157 mg/dL (70-99)
[2017-07-15] MEDS: ATORVASTATIN CALCIUM 40 MG TABLET. PO (20:31)
[2017-07-15] MEDS: INSULIN DETEMIR 300 UNITS/3 ML INSULN.PEN. SQ (21:00)
[2017-07-15 22:19] LABS: POC GLUCOSE 183 mg/dL (70-99)
[2017-07-16 04:35] LABS: ALBUMIN 2.2 g/dL (3.4-5.0); ANION GAP 7 (6-14); BLOOD UREA NITROGEN 29 mg/dL (7-20); CALCIUM 8.1 mg/dL (8.5-10.1); CARBON DIOXIDE 30 mmol/L (21-32); CHLORIDE 99 mmol/L (98-107); CREATININE 5.3 mg/dL (0.6-1.0); GFR 8.3; GLUCOSE 59 mg/dL (70-99); PHOSPHORUS 2.6 mg/dL (2.6-4.7); POTASSIUM 3.8 mmol/L (3.5-5.1); SODIUM 136 mmol/L (136-145)
[2017-07-16 05:35] LABS: POC GLUCOSE 54 mg/dL (70-99)
[2017-07-16 05:35] LABS: POC GLUCOSE 93 mg/dL (70-99)
[2017-07-16 05:35] LABS: POC GLUCOSE 62 mg/dL (70-99)
[2017-07-16] MEDS: INSULIN ASPART 300 UNITS/3 ML INSULN.PEN SQ ×3 (08:00→17:23)
[2017-07-16 08:05] LABS: POC GLUCOSE 86 mg/dL (70-99)
[2017-07-16] MEDS: FOLIC/VIT B COMP W-C (RENAL) TABLET. PO (10:04)
[2017-07-16] MEDS: LISINOPRIL 20 MG TABLET PO (10:05)
[2017-07-16] MEDS: CALCIUM CARBONATE 500 MG TABLET PO ×3 (10:06→17:16)
[2017-07-16] MEDS: CLOPIDOGREL BISULFATE 75 MG TABLET PO (10:06)
[2017-07-16] MEDS: LACTOBACILLUS RHAMNOSUS GG 1 CAPSULE. PO ×2 (10:06→21:45)
[2017-07-16] MEDS: amLODIPine BESYLATE 5 MG TABLET PO (10:06)
[2017-07-16] MEDS: FUROSEMIDE 40 MG TABLET. PO ×2 (10:06→14:35)
[2017-07-16] MEDS: CARVEDILOL 12.5 MG TABLET. PO ×2 (10:07→17:17)
[2017-07-16] MEDS: glyBURIDE 5 MG TABLET PO ×2 (10:07→17:16)
[2017-07-16] MEDS: ISOSORBIDE MONONITRATE ER 30 MG TAB.ER.24H PO (10:07)
[2017-07-16] MEDS: VANCOMYCIN 125 MG/2.5 ML ORAL SOLUTION. PO ×4 (10:10→21:45)
[2017-07-16 11:10] LABS: ADD MAN DIFF? NO
[2017-07-16 11:37] LABS: BASO # 0.1 x10^3/uL (0.0-0.2); BASO % 1 % (0-3); EOS # 0.2 x10^3/uL (0.0-0.7); EOS % 1 % (0-3); LYMPH # 1.2 x10^3/uL (1.0-4.8); LYMPH % 9 % (24-48); MEAN CORPUSCULAR HEMOGLOBIN 31 pg (25-35); MEAN CORPUSCULAR HGB CONC 32 g/dL (31-37); MEAN CORPUSCULAR VOLUME 96 fL (79-100); MONO # 0.9 x10^3/uL (0.0-1.1); MONO % 7 % (0-9); NEUT # 11.2 x10^3uL (1.8-7.7); NEUT % 82 % (31-73); PLATELET COUNT 249 x10^3/uL (140-400); RED BLOOD COUNT 2.11 x10^6/uL (3.50-5.40); RED CELL DISTRIBUTION WIDTH 12.8 % (11.5-14.5); WHITE BLOOD COUNT 13.5 x10^3/uL (4.0-11.0)
[2017-07-16 11:44] LABS: HEMATOCRIT 20.2 % (36.0-47.0); HEMOGLOBIN 6.5 g/dL (12.0-15.5)
[2017-07-16 12:05] LABS: POC GLUCOSE 270 mg/dL (70-99)
[2017-07-16] MEDS ORDERED: IRON SUCROSE COMPLEX 200 MG in IV NORMAL SALINE 100ML 100 ML IV (14:00)
[2017-07-16 17:03] LABS: POC GLUCOSE 236 mg/dL (70-99)
[2017-07-16 21:33] LABS: POC GLUCOSE 281 mg/dL (70-99)
[2017-07-16] MEDS: ATORVASTATIN CALCIUM 40 MG TABLET. PO (21:45)
[2017-07-16] MEDS: INSULIN DETEMIR 300 UNITS/3 ML INSULN.PEN. SQ (21:49)
[2017-07-17 05:16] LABS: ALBUMIN 2.1 g/dL (3.4-5.0); ANION GAP 12 (6-14); BLOOD UREA NITROGEN 45 mg/dL (7-20); CALCIUM 8.2 mg/dL (8.5-10.1); CARBON DIOXIDE 28 mmol/L (21-32); CHLORIDE 94 mmol/L (98-107); CREATININE 7.6 mg/dL (0.6-1.0); GFR 5.4; GLUCOSE 150 mg/dL (70-99); PHOSPHORUS 2.7 mg/dL (2.6-4.7); POTASSIUM 4.2 mmol/L (3.5-5.1); SODIUM 134 mmol/L (136-145)
[2017-07-17 05:17] LABS: MAGNESIUM 2.1 mg/dL (1.8-2.4)
[2017-07-17 07:54] LABS: POC GLUCOSE 80 mg/dL (70-99)
[2017-07-17] MEDS: INSULIN ASPART 300 UNITS/3 ML INSULN.PEN SQ ×3 (08:00→17:34)
[2017-07-17] MEDS: FOLIC/VIT B COMP W-C (RENAL) TABLET. PO (08:50)
[2017-07-17] MEDS: glyBURIDE 5 MG TABLET PO ×2 (08:51→17:23)
[2017-07-17] MEDS: CALCIUM CARBONATE 500 MG TABLET PO ×3 (08:51→17:23)
[2017-07-17] MEDS: CARVEDILOL 12.5 MG TABLET. PO ×2 (08:52→17:24)
[2017-07-17] MEDS: amLODIPine BESYLATE 5 MG TABLET PO (08:52)
[2017-07-17] MEDS: LACTOBACILLUS RHAMNOSUS GG 1 CAPSULE. PO ×2 (08:53→21:38)
[2017-07-17] MEDS: ISOSORBIDE MONONITRATE ER 30 MG TAB.ER.24H PO (08:53)
[2017-07-17] MEDS: LISINOPRIL 20 MG TABLET PO (08:53)
[2017-07-17] MEDS: VANCOMYCIN 125 MG/2.5 ML ORAL SOLUTION. PO ×4 (08:53→21:37)
[2017-07-17] MEDS: FUROSEMIDE 40 MG TABLET. PO ×2 (08:53→15:22)
[2017-07-17] MEDS: CLOPIDOGREL BISULFATE 75 MG TABLET PO (08:54)
[2017-07-17] MEDS: ACETAMINOPHEN 500 MG TABLET PO (09:08)
[2017-07-17] MEDS: DIPHENOXYLATE/ATROPINE TABLET. PO (09:08)
[2017-07-17] MEDS ORDERED: FERROUS SULFATE ORAL 300 MG/5 ML SOLUTION. PO (11:30)
[2017-07-17 11:44] LABS: POC GLUCOSE 172 mg/dL (70-99)
[2017-07-17] MEDS ORDERED: IRON SUCROSE COMPLEX 200 MG in IV NORMAL SALINE 100ML 100 ML IV (12:15)
[2017-07-17] MEDS: IRON SUCROSE COMPLEX 500 MG in IV NORMAL SALINE 250ML 250 ML IV (12:35)
[2017-07-17] MEDS ORDERED: metroNIDAZOLE 500 MG TABLET PO ×2 (14:15→22:00)
[2017-07-17] MEDS: oxyCODONE/APAP 5/325 1 TAB TABLET PO (15:26)
[2017-07-17 16:58] LABS: POC GLUCOSE 237 mg/dL (70-99)
[2017-07-17] MEDS: TOBRAMYCIN SULFATE IV (21:38)
[2017-07-17] MEDS: DEXTROSE 5% IV (21:38)
[2017-07-17] MEDS: ATORVASTATIN CALCIUM 40 MG TABLET. PO (21:38)
[2017-07-17] MEDS: INSULIN DETEMIR 300 UNITS/3 ML INSULN.PEN. SQ (21:47)
[2017-07-17 21:52] LABS: POC GLUCOSE 235 mg/dL (70-99)
[2017-07-18 05:35] LABS: ADD MAN DIFF? NO
[2017-07-18 06:08] LABS: ALBUMIN/GLOBULIN RATIO 0.4 (1.0-1.7); ALK PHOS 95 U/L (46-116); ALT (SGPT) 13 U/L (14-59); ANION GAP 13 (6-14); AST (SGOT) 10 U/L (15-37); BLOOD UREA NITROGEN 57 mg/dL (7-20); BUN/CREATININE RATIO 6 (6-20); CALCIUM 7.7 mg/dL (8.5-10.1); CARBON DIOXIDE 26 mmol/L (21-32); CHLORIDE 91 mmol/L (98-107); GFR 4.5; GLUCOSE 228 mg/dL (70-99); PHOSPHORUS 3.6 mg/dL (2.6-4.7); POTASSIUM 4.3 mmol/L (3.5-5.1); SODIUM 130 mmol/L (136-145); TOTAL BILIRUBIN 0.2 mg/dL (0.2-1.0); TOTAL PROTEIN 6.5 g/dL (6.4-8.2)
[2017-07-18 06:28] LABS: BASO # 0.1 x10^3/uL (0.0-0.2); BASO % 0 % (0-3); EOS # 0.4 x10^3/uL (0.0-0.7); EOS % 2 % (0-3); LYMPH % 6 % (24-48); MEAN CORPUSCULAR HEMOGLOBIN 31 pg (25-35); MEAN CORPUSCULAR HGB CONC 32 g/dL (31-37); MEAN CORPUSCULAR VOLUME 95 fL (79-100); MONO # 0.9 x10^3/uL (0.0-1.1); MONO % 5 % (0-9); NEUT % 86 % (31-73); PLATELET COUNT 263 x10^3/uL (140-400); RED BLOOD COUNT 2.13 x10^6/uL (3.50-5.40); RED CELL DISTRIBUTION WIDTH 12.7 % (11.5-14.5); WHITE BLOOD COUNT 16.4 x10^3/uL (4.0-11.0)
[2017-07-18 06:52] LABS: HEMOGLOBIN 6.5 g/dL (12.0-15.5)
[2017-07-18 06:53] LABS: HEMATOCRIT 20.2 % (36.0-47.0)
[2017-07-18] MEDS ORDERED: IV NORMAL SALINE 1000ML BAG 1,000 ML IV (07:21)
[2017-07-18] MEDS: CALCIUM CARBONATE 500 MG TABLET PO ×3 (07:30→16:37)
[2017-07-18] MEDS ORDERED: DIALYSIS PATIENT. MC ×2 (07:30)
[2017-07-18] MEDS: CLOPIDOGREL BISULFATE 75 MG TABLET PO (08:00)
[2017-07-18] MEDS: glyBURIDE 5 MG TABLET PO ×2 (08:00→16:38)
[2017-07-18] MEDS: INSULIN ASPART 300 UNITS/3 ML INSULN.PEN SQ ×3 (08:00→18:20)
[2017-07-18] MEDS: CARVEDILOL 12.5 MG TABLET. PO ×2 (08:00→16:38)
[2017-07-18 08:31] LABS: POC GLUCOSE 143 mg/dL (70-99)
[2017-07-18] MEDS: LACTOBACILLUS RHAMNOSUS GG 1 CAPSULE. PO ×2 (09:00→22:48)
[2017-07-18] MEDS: ISOSORBIDE MONONITRATE ER 30 MG TAB.ER.24H PO (09:00)
[2017-07-18] MEDS: FOLIC/VIT B COMP W-C (RENAL) TABLET. PO (09:00)
[2017-07-18] MEDS: amLODIPine BESYLATE 5 MG TABLET PO (09:00)
[2017-07-18] MEDS: VANCOMYCIN 125 MG/2.5 ML ORAL SOLUTION. PO ×4 (09:00→22:51)
[2017-07-18] MEDS: FUROSEMIDE 40 MG TABLET. PO ×2 (09:00→12:54)
[2017-07-18] MEDS: LISINOPRIL 20 MG TABLET PO (09:00)
[2017-07-18] MEDS: oxyCODONE/APAP 5/325 1 TAB TABLET PO ×3 (09:16→22:49)
[2017-07-18 12:31] LABS: POC GLUCOSE 241 mg/dL (70-99)
[2017-07-18] MEDS: FLUCONAZOLE 100 MG TABLET. PO (12:54)
[2017-07-18] MEDS: PANTOPRAZOLE 40 MG TABLET.DR. PO (12:55)
[2017-07-18 17:13] LABS: BILIRUBIN,URINE NEGATIVE (NEG); CLARITY,URINE CLOUDY; COLOR,URINE YELLOW; GLUCOSE,URINE 250 mg/dL (NEG); NITRITE,URINE NEGATIVE (NEG); PROTEIN,URINE >=300 mg/dL (NEG-TRACE); UROBILINOGEN,URINE 0.2 mg/dL (0.2 mg/dL)
[2017-07-18 17:19] LABS: POC GLUCOSE 287 mg/dL (70-99)
[2017-07-18 17:58] LABS: BACTERIA,URINE FEW /HPF (0-FEW); HYALINE CASTS, URINE FEW /HPF; SQUAMOUS EPITHELIAL CELL,UR MOD /LPF; WBC,URINE 20-40 /HPF (0-4)
[2017-07-18] MEDS: INSULIN DETEMIR 300 UNITS/3 ML INSULN.PEN. SQ (22:47)
[2017-07-18] MEDS: ATORVASTATIN CALCIUM 40 MG TABLET. PO (22:49)
[2017-07-18] MEDS: clonazePAM 0.5 MG TABLET PO (22:49)
[2017-07-18] MEDS: ONDANSETRON PF 4 MG/2 ML VIAL. IV (22:58)
[2017-07-19 05:45] LABS: ADD MAN DIFF? NO
[2017-07-19 05:55] LABS: BASO % 0 % (0-3); EOS # 0.3 x10^3/uL (0.0-0.7); EOS % 2 % (0-3); LYMPH # 0.7 x10^3/uL (1.0-4.8); LYMPH % 4 % (24-48); MEAN CORPUSCULAR HEMOGLOBIN 31 pg (25-35); MEAN CORPUSCULAR HGB CONC 33 g/dL (31-37); MEAN CORPUSCULAR VOLUME 95 fL (79-100); MONO # 0.8 x10^3/uL (0.0-1.1); MONO % 5 % (0-9); NEUT # 13.9 x10^3uL (1.8-7.7); NEUT % 89 % (31-73); PLATELET COUNT 269 x10^3/uL (140-400); RED BLOOD COUNT 2.03 x10^6/uL (3.50-5.40); RED CELL DISTRIBUTION WIDTH 13.1 % (11.5-14.5); WHITE BLOOD COUNT 15.7 x10^3/uL (4.0-11.0)
[2017-07-19 05:59] LABS: HEMATOCRIT 19.2 % (36.0-47.0); HEMOGLOBIN 6.3 g/dL (12.0-15.5)
[2017-07-19 06:11] LABS: ANION GAP 8 (6-14); BLOOD UREA NITROGEN 25 mg/dL (7-20); CALCIUM 8.7 mg/dL (8.5-10.1); CARBON DIOXIDE 29 mmol/L (21-32); CHLORIDE 97 mmol/L (98-107); CREATININE 5.2 mg/dL (0.6-1.0); GFR 8.4; GLUCOSE 183 mg/dL (70-99); PHOSPHORUS 3.8 mg/dL (2.6-4.7); POTASSIUM 4.4 mmol/L (3.5-5.1); SODIUM 134 mmol/L (136-145)
[2017-07-19 09:02] LABS: POC GLUCOSE 151 mg/dL (70-99)
[2017-07-19] MEDS: FOLIC/VIT B COMP W-C (RENAL) TABLET. PO (09:04)
[2017-07-19] MEDS: CALCIUM CARBONATE 500 MG TABLET PO ×3 (09:05→17:41)
[2017-07-19] MEDS: ISOSORBIDE MONONITRATE ER 30 MG TAB.ER.24H PO (09:05)
[2017-07-19] MEDS: PANTOPRAZOLE 40 MG TABLET.DR. PO (09:06)
[2017-07-19] MEDS: amLODIPine BESYLATE 5 MG TABLET PO (09:06)
[2017-07-19] MEDS: CARVEDILOL 12.5 MG TABLET. PO ×2 (09:06→17:41)
[2017-07-19] MEDS: FUROSEMIDE 40 MG TABLET. PO ×2 (09:06→13:51)
[2017-07-19] MEDS: VANCOMYCIN 125 MG/2.5 ML ORAL SOLUTION. PO ×4 (09:07→21:09)
[2017-07-19] MEDS: glyBURIDE 5 MG TABLET PO ×2 (09:07→17:42)
[2017-07-19] MEDS: LACTOBACILLUS RHAMNOSUS GG 1 CAPSULE. PO ×2 (09:07→20:03)
[2017-07-19] MEDS: LISINOPRIL 20 MG TABLET PO (09:07)
[2017-07-19] MEDS: FLUCONAZOLE 100 MG TABLET. PO (09:07)
[2017-07-19] MEDS: INSULIN ASPART 300 UNITS/3 ML INSULN.PEN SQ ×3 (09:16→17:48)
[2017-07-19] MEDS: CLOPIDOGREL BISULFATE 75 MG TABLET PO (09:18)
[2017-07-19 12:02] LABS: POC GLUCOSE 157 mg/dL (70-99)
[2017-07-19] MEDS: TOBRAMYCIN PER PHARMACY MC (15:15)
[2017-07-19] MEDS: ONDANSETRON PF 4 MG/2 ML VIAL. IV (17:53)
[2017-07-19 18:09] LABS: POC GLUCOSE 183 mg/dL (70-99)
[2017-07-19] MEDS: ACETAMINOPHEN 500 MG TABLET PO (20:03)
[2017-07-19] MEDS: DICYCLOMINE HCL 10 MG CAPSULE PO (20:03)
[2017-07-19] MEDS: ATORVASTATIN CALCIUM 40 MG TABLET. PO (20:04)
[2017-07-19] MEDS: clonazePAM 0.5 MG TABLET PO (20:04)
[2017-07-19] MEDS: ONDANSETRON ODT 4 MG TAB.RAPDIS. PO (20:04)
[2017-07-19 20:58] LABS: POC GLUCOSE 172 mg/dL (70-99)
[2017-07-19] MEDS: DARBEPOETIN ALFA 60 MCG/0.3 ML DISP.SYRIN. SQ (21:08)
[2017-07-19] MEDS: INSULIN DETEMIR 300 UNITS/3 ML INSULN.PEN. SQ (21:13)
[2017-07-20 00:19] LABS: POC GLUCOSE 184 mg/dL (70-99)
[2017-07-20] MEDS: DIPHENOXYLATE/ATROPINE TABLET. PO (00:22)
[2017-07-20 05:05] LABS: MEAN CORPUSCULAR HEMOGLOBIN 30 pg (25-35); MEAN CORPUSCULAR HGB CONC 32 g/dL (31-37); MEAN CORPUSCULAR VOLUME 95 fL (79-100); PLATELET COUNT 277 x10^3/uL (140-400); WHITE BLOOD COUNT 11.3 x10^3/uL (4.0-11.0)
[2017-07-20 06:07] LABS: ANION GAP 12 (6-14); BLOOD UREA NITROGEN 42 mg/dL (7-20); CALCIUM 7.8 mg/dL (8.5-10.1); CARBON DIOXIDE 26 mmol/L (21-32); CHLORIDE 95 mmol/L (98-107); CREATININE 7.5 mg/dL (0.6-1.0); GFR 5.5; GLUCOSE 140 mg/dL (70-99); POTASSIUM 4.9 mmol/L (3.5-5.1); SODIUM 133 mmol/L (136-145)
[2017-07-20] MEDS: CALCIUM CARBONATE 500 MG TABLET PO ×3 (07:30→17:48)
[2017-07-20] MEDS ORDERED: IV NORMAL SALINE 1000ML BAG 1,000 ML IV ×2 (07:33)
[2017-07-20] MEDS ORDERED: 0.9 % SODIUM CHLORIDE 10 ML DISP.SYRIN. IV (07:45)
[2017-07-20] MEDS ORDERED: DIALYSIS PATIENT. MC (07:45)
[2017-07-20 07:48] LABS: POC GLUCOSE 84 mg/dL (70-99)
[2017-07-20] MEDS: INSULIN ASPART 300 UNITS/3 ML INSULN.PEN SQ ×3 (08:00→17:00)
[2017-07-20] MEDS: ONDANSETRON PF 4 MG/2 ML VIAL. IV ×2 (08:10→18:17)
[2017-07-20] MEDS: VANCOMYCIN 125 MG/2.5 ML ORAL SOLUTION. PO ×4 (09:00→21:33)
[2017-07-20] MEDS ORDERED: CONTRAST GIVEN MC (09:15)
[2017-07-20 11:35] LABS: PROCALCITONIN 0.97 ng/mL (0.00-0.10)
[2017-07-20 11:52] LABS: POC GLUCOSE 74 mg/dL (70-99)
[2017-07-20] MEDS: IOHEXOL 240 MG/ML 50ML VIAL. PO (12:55)
[2017-07-20] MEDS: FOLIC/VIT B COMP W-C (RENAL) TABLET. PO (13:07)
[2017-07-20] MEDS: LACTOBACILLUS RHAMNOSUS GG 1 CAPSULE. PO ×2 (13:07→21:33)
[2017-07-20] MEDS: PANTOPRAZOLE 40 MG TABLET.DR. PO (13:08)
[2017-07-20] MEDS: LISINOPRIL 20 MG TABLET PO (13:09)
[2017-07-20] MEDS: amLODIPine BESYLATE 5 MG TABLET PO (13:10)
[2017-07-20] MEDS: glyBURIDE 5 MG TABLET PO ×2 (13:10→17:48)
[2017-07-20] MEDS: CARVEDILOL 12.5 MG TABLET. PO ×2 (13:10→17:49)
[2017-07-20] MEDS: FUROSEMIDE 40 MG TABLET. PO ×2 (13:11→14:00)
[2017-07-20] MEDS: CLOPIDOGREL BISULFATE 75 MG TABLET PO (13:11)
[2017-07-20] MEDS: ISOSORBIDE MONONITRATE ER 30 MG TAB.ER.24H PO (13:11)
[2017-07-20] MEDS: FLUCONAZOLE 100 MG TABLET. PO (13:13)
[2017-07-20 18:08] LABS: POC GLUCOSE 122 mg/dL (70-99)
[2017-07-20 20:32] LABS: POC GLUCOSE 120 mg/dL (70-99)
[2017-07-20] MEDS: INSULIN DETEMIR 300 UNITS/3 ML INSULN.PEN. SQ (21:00)
[2017-07-20] MEDS: clonazePAM 0.5 MG TABLET PO (21:32)
[2017-07-20] MEDS: ATORVASTATIN CALCIUM 40 MG TABLET. PO (21:33)
[2017-07-21] MEDS: CARVEDILOL 12.5 MG TABLET. PO ×2 (08:00→17:00)
[2017-07-21 08:26] LABS: POC GLUCOSE 122 mg/dL (70-99)
[2017-07-21] MEDS: LISINOPRIL 20 MG TABLET PO (09:00)
[2017-07-21] MEDS: ISOSORBIDE MONONITRATE ER 30 MG TAB.ER.24H PO (09:00)
[2017-07-21] MEDS: amLODIPine BESYLATE 5 MG TABLET PO (09:00)
[2017-07-21 09:47] LABS: BASO % 0 % (0-3); EOS # 0.1 x10^3/uL (0.0-0.7); EOS % 1 % (0-3); HEMATOCRIT 21.1 % (36.0-47.0); LYMPH # 0.8 x10^3/uL (1.0-4.8); LYMPH % 6 % (24-48); MEAN CORPUSCULAR HEMOGLOBIN 31 pg (25-35); MEAN CORPUSCULAR HGB CONC 32 g/dL (31-37); MEAN CORPUSCULAR VOLUME 96 fL (79-100); MONO # 0.8 x10^3/uL (0.0-1.1); MONO % 6 % (0-9); NEUT # 12.1 x10^3uL (1.8-7.7); NEUT % 87 % (31-73); PLATELET COUNT 289 x10^3/uL (140-400); RED BLOOD COUNT 2.21 x10^6/uL (3.50-5.40); RED CELL DISTRIBUTION WIDTH 13.3 % (11.5-14.5); WHITE BLOOD COUNT 13.8 x10^3/uL (4.0-11.0)
[2017-07-21 09:58] LABS: HEMOGLOBIN 6.8 g/dL (12.0-15.5)
[2017-07-21 09:59] LABS: ADD MAN DIFF? YES
[2017-07-21] MEDS: LACTOBACILLUS RHAMNOSUS GG 1 CAPSULE. PO ×2 (10:10→21:51)
[2017-07-21] MEDS: VANCOMYCIN 125 MG/2.5 ML ORAL SOLUTION. PO ×4 (10:10→21:51)
[2017-07-21] MEDS: FOLIC/VIT B COMP W-C (RENAL) TABLET. PO (10:10)
[2017-07-21] MEDS: FLUCONAZOLE 100 MG TABLET. PO (10:16)
[2017-07-21] MEDS: CLOPIDOGREL BISULFATE 75 MG TABLET PO (10:16)
[2017-07-21] MEDS: glyBURIDE 5 MG TABLET PO ×2 (10:16→17:41)
[2017-07-21] MEDS: CALCIUM CARBONATE 500 MG TABLET PO ×3 (10:17→17:41)
[2017-07-21] MEDS: PANTOPRAZOLE 40 MG TABLET.DR. PO (10:17)
[2017-07-21] MEDS: FUROSEMIDE 40 MG TABLET. PO ×2 (10:17→17:41)
[2017-07-21] MEDS: INSULIN ASPART 300 UNITS/3 ML INSULN.PEN SQ ×3 (12:00→17:49)
[2017-07-21 17:12] LABS: POC GLUCOSE 243 mg/dL (70-99)
[2017-07-21 17:12] LABS: POC GLUCOSE 109 mg/dL (70-99)
[2017-07-21 17:18] LABS: POC GLUCOSE 321 mg/dL (70-99)
[2017-07-21] MEDS: FERROUS SULFATE ORAL 300 MG/5 ML SOLUTION. PO (17:40)
[2017-07-21 21:04] LABS: POC GLUCOSE 198 mg/dL (70-99)
[2017-07-21] MEDS: ATORVASTATIN CALCIUM 40 MG TABLET. PO (21:51)
[2017-07-21] MEDS: INSULIN DETEMIR 300 UNITS/3 ML INSULN.PEN. SQ (21:56)
[2017-07-22 05:11] LABS: MEAN CORPUSCULAR HEMOGLOBIN 31 pg (25-35); MEAN CORPUSCULAR HGB CONC 33 g/dL (31-37); MEAN CORPUSCULAR VOLUME 94 fL (79-100); PLATELET COUNT 304 x10^3/uL (140-400); RED BLOOD COUNT 2.01 x10^6/uL (3.50-5.40); RED CELL DISTRIBUTION WIDTH 13.3 % (11.5-14.5); WHITE BLOOD COUNT 12.7 x10^3/uL (4.0-11.0)
[2017-07-22 05:23] LABS: HEMOGLOBIN 6.2 g/dL (12.0-15.5)
[2017-07-22 05:33] LABS: ANION GAP 10 (6-14); BLOOD UREA NITROGEN 38 mg/dL (7-20); CALCIUM 7.7 mg/dL (8.5-10.1); CARBON DIOXIDE 27 mmol/L (21-32); CHLORIDE 95 mmol/L (98-107); SODIUM 132 mmol/L (136-145)
[2017-07-22 05:37] LABS: GLUCOSE 36 mg/dL (70-99)
[2017-07-22] MEDS: DEXTROSE 50% 25 GM / 50ML DISP.SYRIN. IV (05:44)
[2017-07-22 06:05] LABS: POC GLUCOSE 41 mg/dL (70-99)
[2017-07-22 07:15] LABS: POC GLUCOSE 83 mg/dL (70-99)
[2017-07-22 07:15] LABS: POC GLUCOSE 58 mg/dL (70-99)
[2017-07-22 07:15] LABS: POC GLUCOSE 66 mg/dL (70-99)
[2017-07-22] MEDS: CALCIUM CARBONATE 500 MG TABLET PO ×4 (07:30→16:55)
[2017-07-22] MEDS: INSULIN ASPART 300 UNITS/3 ML INSULN.PEN SQ ×3 (08:00→17:00)
[2017-07-22] MEDS ORDERED: IV NORMAL SALINE 1000ML BAG 1,000 ML IV ×2 (09:18)
[2017-07-22] MEDS ORDERED: DIALYSIS PATIENT. MC (09:30)
[2017-07-22] MEDS ORDERED: diphenhydrAMINE 50 MG/ML VIAL IV ×2 (09:30)
[2017-07-22] MEDS ORDERED: ACETAMINOPHEN 500 MG TABLET PO (09:30)
[2017-07-22] MEDS ORDERED: 0.9 % SODIUM CHLORIDE 10 ML DISP.SYRIN. IV ×2 (09:30)
[2017-07-22 09:32] LABS: POC GLUCOSE 120 mg/dL (70-99)
[2017-07-22] MEDS: FOLIC/VIT B COMP W-C (RENAL) TABLET. PO (12:35)
[2017-07-22] MEDS: LISINOPRIL 20 MG TABLET PO (12:35)
[2017-07-22] MEDS: VANCOMYCIN 125 MG/2.5 ML ORAL SOLUTION. PO ×4 (12:36→21:15)
[2017-07-22] MEDS: FUROSEMIDE 40 MG TABLET. PO ×2 (12:36→16:55)
[2017-07-22] MEDS: CARVEDILOL 12.5 MG TABLET. PO ×3 (12:36→16:58)
[2017-07-22] MEDS: glyBURIDE 5 MG TABLET PO ×2 (12:36→16:55)
[2017-07-22] MEDS: FERROUS SULFATE ORAL 300 MG/5 ML SOLUTION. PO ×2 (12:36→16:55)
[2017-07-22] MEDS: clonazePAM 0.5 MG TABLET PO (12:37)
[2017-07-22] MEDS: amLODIPine BESYLATE 5 MG TABLET PO (12:37)
[2017-07-22] MEDS: LACTOBACILLUS RHAMNOSUS GG 1 CAPSULE. PO ×2 (12:38→21:15)
[2017-07-22] MEDS: PANTOPRAZOLE 40 MG TABLET.DR. PO (12:38)
[2017-07-22] MEDS: ISOSORBIDE MONONITRATE ER 30 MG TAB.ER.24H PO (12:47)
[2017-07-22] MEDS: CLOPIDOGREL BISULFATE 75 MG TABLET PO (12:47)
[2017-07-22 17:35] LABS: POC GLUCOSE 127 mg/dL (70-99)
[2017-07-22 20:34] LABS: POC GLUCOSE 193 mg/dL (70-99)
[2017-07-22] MEDS: ATORVASTATIN CALCIUM 40 MG TABLET. PO (21:15)
[2017-07-22] MEDS: INSULIN DETEMIR 300 UNITS/3 ML INSULN.PEN. SQ (21:57)
[2017-07-23 05:48] LABS: POC GLUCOSE 110 mg/dL (70-99)
[2017-07-23 07:48] LABS: POC GLUCOSE 119 mg/dL (70-99)
[2017-07-23] MEDS: INSULIN ASPART 300 UNITS/3 ML INSULN.PEN SQ ×2 (08:00→12:40)
[2017-07-23] MEDS: CARVEDILOL 12.5 MG TABLET. PO (08:00)
[2017-07-23] MEDS: FUROSEMIDE 40 MG TABLET. PO ×2 (08:50→12:36)
[2017-07-23] MEDS: FERROUS SULFATE ORAL 300 MG/5 ML SOLUTION. PO (08:50)
[2017-07-23] MEDS: CALCIUM CARBONATE 500 MG TABLET PO ×2 (08:50→12:36)
[2017-07-23] MEDS: LACTOBACILLUS RHAMNOSUS GG 1 CAPSULE. PO (08:50)
[2017-07-23] MEDS: CLOPIDOGREL BISULFATE 75 MG TABLET PO (08:50)
[2017-07-23] MEDS: PANTOPRAZOLE 40 MG TABLET.DR. PO (08:51)
[2017-07-23] MEDS: VANCOMYCIN 125 MG/2.5 ML ORAL SOLUTION. PO ×2 (08:52→12:36)
[2017-07-23] MEDS: glyBURIDE 5 MG TABLET PO (08:52)
[2017-07-23] MEDS: FOLIC/VIT B COMP W-C (RENAL) TABLET. PO (08:53)
[2017-07-23] MEDS: LISINOPRIL 20 MG TABLET PO (08:55)
[2017-07-23] MEDS: ISOSORBIDE MONONITRATE ER 30 MG TAB.ER.24H PO (08:56)
[2017-07-23] MEDS: amLODIPine BESYLATE 5 MG TABLET PO (08:57)
[2017-07-23 12:18] LABS: POC GLUCOSE 250 mg/dL (70-99)
== END 2017-07-23 13:30 | disposition home or self-care (01) | DRG 314 ==
LOC: ER 14:27 → 6 SOUTH 16:46
PROC: 3E03317 Introduction of Other Thrombolytic into Peripheral Vein, Percutaneous Approach (ICD-10-PCS; principal; 2017-07-11)
DX: T82.41XA Breakdown (mechanical) of vascular dialysis catheter, initial encounter (principal); N18.6 End stage renal disease; A41.9 Sepsis, unspecified organism; I13.2 Hypertensive heart and chronic kidney disease with heart failure and with stage 5 chronic kidney disease, or end stage renal disease; A04.72 Enterocolitis due to Clostridium difficile, not specified as recurrent; E44.0 Moderate protein-calorie malnutrition; E66.01 Morbid (severe) obesity due to excess calories; I42.9 Cardiomyopathy, unspecified; I77.4 Celiac artery compression syndrome; T83.518A Infection and inflammatory reaction due to other urinary catheter, initial encounter; E11.22 Type 2 diabetes mellitus with diabetic chronic kidney disease; D63.1 Anemia in chronic kidney disease; Z68.32 Body mass index [BMI] 32.0-32.9, adult; E78.5 Hyperlipidemia, unspecified; I25.10 Atherosclerotic heart disease of native coronary artery without angina pectoris; I50.9 Heart failure, unspecified; K21.9 Gastro-esophageal reflux disease without esophagitis; K57.30 Diverticulosis of large intestine without perforation or abscess without bleeding; K76.0 Fatty (change of) liver, not elsewhere classified; L40.9 Psoriasis, unspecified; Z83.3 Family history of diabetes mellitus; Z91.19 Patient's noncompliance with other medical treatment and regimen; Z95.5 Presence of coronary angioplasty implant and graft; Z99.2 Dependence on renal dialysis
CPT/HCPCS: 36415; 71046; 74022; 74176; 76770; 80048; 80053; 80069; 80202; 81001; 82728; 82962; 83540; 83550; 83690; 83735; 84100; 84145; 85007; 85018; 85025; 85027; 85045; 85610; 85651; 85730; 87040; 87045; 87086; 87324; 87328; 93005; 96374; 96375; 97165-GO; 99285; 99285-25; J0610; J0878; J0881; J1756; J1815; J2405; J2543; J2997; J3370; J3470; J3475; J3490; J7042; J7050; Q0162; Q9966; S0028

== ENCOUNTER 2017-11-14 13:16 | Inpatient (IN) | payer OTHER ==
[2017-11-14 14:05] LABS: ADD MAN DIFF? NO
[2017-11-14 14:08] LABS: BASO % 1 % (0-3); EOS # 0.2 x10^3/uL (0.0-0.7); EOS % 4 % (0-3); HEMATOCRIT 33.7 % (36.0-47.0); HEMOGLOBIN 11.5 g/dL (12.0-15.5); LYMPH # 1.3 x10^3/uL (1.0-4.8); LYMPH % 21 % (24-48); MEAN CORPUSCULAR HEMOGLOBIN 32 pg (25-35); MEAN CORPUSCULAR HGB CONC 34 g/dL (31-37); MEAN CORPUSCULAR VOLUME 94 fL (79-100); MONO # 0.5 x10^3/uL (0.0-1.1); MONO % 9 % (0-9); NEUT # 4.1 x10^3uL (1.8-7.7); NEUT % 66 % (31-73); PLATELET COUNT 193 x10^3/uL (140-400); RED BLOOD COUNT 3.57 x10^6/uL (3.50-5.40); RED CELL DISTRIBUTION WIDTH 13.9 % (11.5-14.5); WHITE BLOOD COUNT 6.3 x10^3/uL (4.0-11.0)
[2017-11-14 14:20] LABS: ANION GAP 19 (6-14); BLOOD UREA NITROGEN 126 mg/dL (7-20); BUN/CREATININE RATIO 12 (6-20); CALCIUM 9.2 mg/dL (8.5-10.1); CARBON DIOXIDE 19 mmol/L (21-32); CHLORIDE 95 mmol/L (98-107); CREATININE 10.4 mg/dL (0.6-1.0); GFR 3.8; GLUCOSE 300 mg/dL (70-99); POTASSIUM 5.9 mmol/L (3.5-5.1); SODIUM 133 mmol/L (136-145)
[2017-11-14 14:26] LABS: ALBUMIN 3.1 g/dL (3.4-5.0); ALBUMIN/GLOBULIN RATIO 0.7 (1.0-1.7); ALK PHOS 121 U/L (46-116); ALT (SGPT) 12 U/L (14-59); AST (SGOT) 9 U/L (15-37); TOTAL BILIRUBIN 0.3 mg/dL (0.2-1.0); TOTAL PROTEIN 7.6 g/dL (6.4-8.2)
[2017-11-14 14:32] LABS: NT-PRO BNP 3155 pg/mL (0-124)
[2017-11-14] MEDS: ONDANSETRON PF 4 MG/2 ML VIAL. IV (14:36)
[2017-11-14] MEDS: CALCIUM GLUCONATE 1,000 MG/10 ML VIAL. IVP (14:50)
[2017-11-14] MEDS: DEXTROSE 50% 25 GM / 50ML DISP.SYRIN. IV (14:50)
[2017-11-14] MEDS: INSULIN REGULAR 100 UNIT/ML 3ML VIAL. IV (14:52)
[2017-11-14 17:56] LABS: POC GLUCOSE 211 mg/dL (70-99)
[2017-11-14] MEDS ORDERED: IV NORMAL SALINE 1000ML BAG 1,000 ML IV ×2 (18:46)
[2017-11-14] MEDS ORDERED: DIALYSIS PATIENT. MC (19:00)
[2017-11-14] MEDS ORDERED: diphenhydrAMINE 50 MG/ML VIAL IV ×2 (19:00)
[2017-11-14] MEDS ORDERED: clonazePAM 0.5 MG TABLET PO (19:15)
[2017-11-14] MEDS ORDERED: DEXTROSE 50% 25 GM / 50ML DISP.SYRIN. IV (19:15)
[2017-11-14] MEDS: ATORVASTATIN CALCIUM 40 MG TABLET. PO (22:39)
[2017-11-14] MEDS: CARVEDILOL 12.5 MG TABLET. PO (22:40)
[2017-11-14] MEDS: FUROSEMIDE 40 MG TABLET. PO (22:41)
[2017-11-14] MEDS: INSULIN GLARGINE 300 UNITS/3 ML INSULN.PEN. SQ (22:46)
[2017-11-14 22:49] LABS: POC GLUCOSE 167 mg/dL (70-99)
[2017-11-15 07:49] LABS: POC GLUCOSE 109 mg/dL (70-99)
[2017-11-15] MEDS: LISINOPRIL 20 MG TABLET PO (07:57)
[2017-11-15] MEDS: FUROSEMIDE 40 MG TABLET. PO ×2 (07:58→17:09)
[2017-11-15] MEDS: CARVEDILOL 12.5 MG TABLET. PO ×2 (07:58→17:10)
[2017-11-15] MEDS: ASPIRIN ENTERIC COATED 81 MG TABLET.DR. PO (07:58)
[2017-11-15] MEDS: glyBURIDE 5 MG TABLET PO ×2 (07:59→17:09)
[2017-11-15] MEDS: CLOPIDOGREL BISULFATE 75 MG TABLET PO (07:59)
[2017-11-15] MEDS: ISOSORBIDE MONONITRATE ER 30 MG TAB.ER.24H PO (07:59)
[2017-11-15] MEDS: INSULIN LISPRO 300 UNITS/3 ML INSULN.PEN. SQ ×3 (08:00→17:00)
[2017-11-15 10:38] LABS: ANION GAP 8 (6-14); BLOOD UREA NITROGEN 52 mg/dL (7-20); CALCIUM 8.2 mg/dL (8.5-10.1); CARBON DIOXIDE 32 mmol/L (21-32); CHLORIDE 96 mmol/L (98-107); CREATININE 6.2 mg/dL (0.6-1.0); GFR 6.9; GLUCOSE 190 mg/dL (70-99); POTASSIUM 4.5 mmol/L (3.5-5.1); SODIUM 136 mmol/L (136-145)
[2017-11-15] MEDS: amLODIPine BESYLATE 5 MG TABLET PO (11:22)
[2017-11-15 11:24] LABS: POC GLUCOSE 190 mg/dL (70-99)
[2017-11-15 16:54] LABS: POC GLUCOSE 141 mg/dL (70-99)
[2017-11-15] MEDS: ONDANSETRON PF 4 MG/2 ML VIAL. IV (17:31)
[2017-11-15] MEDS: ATORVASTATIN CALCIUM 40 MG TABLET. PO (21:03)
[2017-11-15] MEDS: INSULIN GLARGINE 300 UNITS/3 ML INSULN.PEN. SQ (21:08)
[2017-11-15 21:09] LABS: POC GLUCOSE 181 mg/dL (70-99)
[2017-11-16 05:26] LABS: POC GLUCOSE 98 mg/dL (70-99)
[2017-11-16] MEDS ORDERED: IV NORMAL SALINE 1000ML BAG 1,000 ML IV ×2 (07:26)
[2017-11-16] MEDS ORDERED: DIALYSIS PATIENT. MC ×2 (07:30)
[2017-11-16] MEDS: INSULIN LISPRO 300 UNITS/3 ML INSULN.PEN. SQ ×2 (08:00→12:00)
[2017-11-16] MEDS: ASPIRIN ENTERIC COATED 81 MG TABLET.DR. PO (08:00)
[2017-11-16] MEDS: CARVEDILOL 12.5 MG TABLET. PO (08:00)
[2017-11-16] MEDS: glyBURIDE 5 MG TABLET PO (08:00)
[2017-11-16 08:16] LABS: POC GLUCOSE 134 mg/dL (70-99)
[2017-11-16] MEDS: FUROSEMIDE 40 MG TABLET. PO (09:00)
[2017-11-16] MEDS: LISINOPRIL 20 MG TABLET PO (09:00)
[2017-11-16] MEDS: CLOPIDOGREL BISULFATE 75 MG TABLET PO (09:00)
[2017-11-16] MEDS: ISOSORBIDE MONONITRATE ER 30 MG TAB.ER.24H PO (09:00)
[2017-11-16 11:52] LABS: ANION GAP 9 (6-14); BLOOD UREA NITROGEN 39 mg/dL (7-20); CALCIUM 7.9 mg/dL (8.5-10.1); CARBON DIOXIDE 28 mmol/L (21-32); CHLORIDE 98 mmol/L (98-107); CREATININE 4.1 mg/dL (0.6-1.0); GFR 11.1; GLUCOSE 162 mg/dL (70-99); SODIUM 135 mmol/L (136-145)
[2017-11-16] MEDS: amLODIPine BESYLATE 5 MG TABLET PO (12:00)
== END 2017-11-16 15:00 | disposition home or self-care (01) | DRG 314 ==
LOC: ER 13:16 → 5 SOUTH 15:48
PROC: 5A1D70Z Performance of Urinary Filtration, Intermittent, Less than 6 Hours Per Day (ICD-10-PCS; principal; 2017-11-14)
PROC: 5A1D70Z Performance of Urinary Filtration, Intermittent, Less than 6 Hours Per Day (ICD-10-PCS; 2017-11-16)
DX: T82.41XA Breakdown (mechanical) of vascular dialysis catheter, initial encounter (principal); I50.43 Acute on chronic combined systolic (congestive) and diastolic (congestive) heart failure; N18.6 End stage renal disease; I13.2 Hypertensive heart and chronic kidney disease with heart failure and with stage 5 chronic kidney disease, or end stage renal disease; E11.22 Type 2 diabetes mellitus with diabetic chronic kidney disease; E78.5 Hyperlipidemia, unspecified; I25.10 Atherosclerotic heart disease of native coronary artery without angina pectoris; I25.2 Old myocardial infarction; K21.9 Gastro-esophageal reflux disease without esophagitis; E66.9 Obesity, unspecified; L40.9 Psoriasis, unspecified; Y71.2 Prosthetic and other implants, materials and accessory cardiovascular devices associated with adverse incidents; Y83.8 Other surgical procedures as the cause of abnormal reaction of the patient, or of later complication, without mention of misadventure at the time of the procedure; Z99.2 Dependence on renal dialysis; Z83.3 Family history of diabetes mellitus
CPT/HCPCS: 36415; 71045; 80048; 80053; 82962; 83880; 84132; 85025; 93005; 96374; 96375; 99285; 99285-25; J0610; J1815; J2405; J7042

== ENCOUNTER → 2017-11-14 | Outpatient (CLI) | payer OTHER ==
[2017-11-14 13:26] LABS: POTASSIUM 5.8 mmol/L (3.5-5.1)
== END | disposition home or self-care (01) ==
LOC: LAB 12:54
DX: E87.5 Hyperkalemia (principal); I13.2 Hypertensive heart and chronic kidney disease with heart failure and with stage 5 chronic kidney disease, or end stage renal disease; E11.22 Type 2 diabetes mellitus with diabetic chronic kidney disease; I50.9 Heart failure, unspecified; N18.5 Chronic kidney disease, stage 5; E78.5 Hyperlipidemia, unspecified; E66.9 Obesity, unspecified; K21.9 Gastro-esophageal reflux disease without esophagitis
CPT/HCPCS: 36415; 84132

== ENCOUNTER 2018-03-29 16:36 | Inpatient (IN) | payer OTHER ==
[~2018-03-29] VITALS: Ht 162.6 cm; Wt 89.4 kg
[2018-03-29] VITALS (9 sets, daily range): BP systolic 131–179; BP diastolic 57–74
[~2018-03-29 16:36] MED LIST changes: -AMLO5TAB2 PO; +AMLO5TAB7 PO; +ASPI-612 PO; -ASPI81TA9 PO; +CARV12.511 PO; -CARV12.52 PO; +CARV25TA2 PO; +CLON0.5T11 PO; +FURO40TA4 PO; +HYDR-2145 PO; -HYDR25TA9 PO; +INSU100C SQ; +VANC500V PO
--- NOTE | 2018-03-29 17:22 | PHYS DOC ---
Past Medical History Past Medical History: CHF, Diabetes-Type II, High Cholesterol, Hypertension, DC , Renal Disease, Other Additional Past Medical Histor: PSORASIS Past Surgical History: Angioplasty, Other Additional Past Surgical Histo: 2L fluid removed from lungs, CARDIAC CATH/ STENTS,DIALYSIS CATH R CHEST Alcohol Use: None Drug Use: None Adult General Chief Complaint Chief Complaint: SHORTNESS OF BREATH HPI HPI Patient is a 63 year old female who presents with has not gone to gets dialysis in almost 3 weeks due to stating that her tongue and mouth is sore. She states that she had some chills last night but was unsure she exited a fever. She states that she has began having shortness of breath that started over the weekend. Patient states she does have some nausea and some lower mid abdominal pain. She states it's very small and does not actually bother her. She rates her pain a 4 out of 10. States her last bowel movement was today and normal. Review of Systems Review of Systems Constitutional: Denies fever or chills [] Eyes: Denies change in visual acuity, redness, or eye pain [] HENT: Denies nasal congestion or sore throat [] Respiratory: Denies cough. Shortness of breath [] Cardiovascular: No additional information not addressed in HPI [] GI: lower mid abdominal pain, nausea, denies vomiting, bloody stools or diarrhea [] : Denies dysuria or hematuria [] Musculoskeletal: Denies back pain or joint pain [] Integument: Denies rash or skin lesions [] Neurologic: Denies headache, focal weakness or sensory changes [] All other systems were reviewed and found to be within normal limits, except as documented in this note. Current Medications Current Medications Current Medications Medications (Trade) Dose Ordered Sig/[facility] Start Time Stop Time Status Last Admin Dose Admin Calcium Gluconate (Calcium Gluconate) 1,000 mg 1X ONCE 03/29/18 18:15 12 18:16 Dextrose (Dextrose 50%-Water Syringe) 25 gm 1X ONCE 03/29/18 18:15 03/29/18 18:16 Insulin Human Regular (HumuLIN R VIAL) 10 unit 1X ONCE 03/29/18 18:15 1218 18:16 Sodium Bicarbonate (Sodium Bicarb Adult 8.4% Syr) 50 meq 1X ONCE 03/29/18 18:15 12 18:16 Allergies Allergies Allergies Coded Allergies Type Severity Reaction Last Updated Verified No Known Drug Allergies 11/28/17 No Physical Exam Physical Exam Constitutional: Well developed, well nourished, no acute distress, non-toxic appearance. [] HENT: Normocephalic, atraumatic, bilateral external ears normal, oropharynx moist, no oral exudates, nose normal. [] Eyes: PERRLA, EOMI, conjunctiva normal, no discharge. [] Neck: Normal range of motion, no tenderness, supple, no stridor. [] Cardiovascular:Heart rate regular rhythm, no murmur [] Lungs & Thorax: Bilateral upper breath sounds clear to auscultation, bilateral lower breath sounds diminished [] Abdomen: Bowel sounds normal, soft, low mid tenderness, no masses, no pulsatile masses. [] Skin: Warm, dry, no erythema, no rash. [] Back: No tenderness, no CVA tenderness. [] Extremities: No tenderness, no cyanosis, no clubbing, ROM intact, no edema. [] Neurologic: Alert and oriented X 3, normal motor function, normal sensory function, no focal deficits noted. [] Psychologic: Affect normal, judgement normal, mood normal. [] Current Patient Data Vital Signs Vital Signs Date Time Temp Pulse Resp B/P (MAP) Pulse Ox O2 Delivery O2 Flow Rate FiO2 03/29/18 16:36 97.6 64 18 168/75 (106) 98 Room Air 97.6 Lab Values Laboratory Tests Test 03/29/18 17:20 03/29/18 17:33 White Blood Count 6.5 x10^3/uL (4.0-11.0) Red Blood Count 2.59 x10^6/uL (3.50-5.40) L Hemoglobin 8.7 g/dL (12.0-15.5) L Hematocrit 25.6 % (36.0-47.0) L Mean Corpuscular Volume 99 fL (79-100) Mean Corpuscular Hemoglobin 34 pg (25-35) Mean Corpuscular Hemoglobin Concent 34 g/dL (31-37) Red Cell Distribution Width 12.7 % (11.5-14.5) Platelet Count 246 x10^3/uL (140-400) Neutrophils (%) (Auto) 70 % (31-73) Lymphocytes (%) (Auto) 18 % (24-48) L Monocytes (%) (Auto) 7 % (0-9) Eosinophils (%) (Auto) 3 % (0-3) Basophils (%) (Auto) 1 % (0-3) Neutrophils # (Auto) 4.5 x10^3uL (1.8-7.7) Lymphocytes # (Auto) 1.2 x10^3/uL (1.0-4.8) Monocytes # (Auto) 0.5 x10^3/uL (0.0-1.1) Eosinophils # (Auto) 0.2 x10^3/uL (0.0-0.7) Basophils # (Auto) 0.1 x10^3/uL (0.0-0.2) Urine Collection Type Unknown Urine Color Yellow Urine Clarity Cloudy Urine pH 5.5 Urine Specific [place] 1.015 Urine Protein >=300 mg/dL (NEG-TRACE) Urine Glucose (UA) 250 mg/dL (NEG) Urine Ketones (Stick) Negative mg/dL (NEG) Urine Blood Moderate (NEG) Urine Nitrite Negative (NEG) Urine Bilirubin Negative (NEG) Urine Urobilinogen Dipstick 0.2 mg/dL (0.2 mg/dL) Urine Leukocyte Esterase Large (NEG) Urine RBC 11-20 /HPF (0-2) Urine WBC 11-20 /HPF (0-4) Urine Squamous Epithelial Cells Many /LPF Urine Bacteria Many /HPF (0-FEW) Sodium Level 135 mmol/L (136-145) L Potassium Level 7.0 mmol/L (3.5-5.1) *H Chloride Level 99 mmol/L (98-107) Carbon Dioxide Level 16 mmol/L (21-32) L Anion Gap 20 (6-14) H Blood Urea Nitrogen 132 mg/dL (7-20) H Creatinine 14.7 mg/dL (0.6-1.0) H Estimated GFR (Cockcroft-Gault) 2.5 BUN/Creatinine Ratio 9 (6-20) Glucose Level 170 mg/dL (70-99) H Calcium Level 7.6 mg/dL (8.5-10.1) L Total Bilirubin 0.3 mg/dL (0.2-1.0) Aspartate Amino Transferase (AST) 9 U/L (15-37) L Alanine Aminotransferase (ALT) 9 U/L (14-59) L Alkaline Phosphatase 75 U/L (46-116) Troponin I Quantitative < 0.017 ng/mL (0.000-0.055) Total Protein 7.8 g/dL (6.4-8.2) Albumin 3.0 g/dL (3.4-5.0) L Albumin/Globulin Ratio 0.6 (1.0-1.7) L POC Troponin I 0.03 ng/ml (<0.08) Laboratory Tests 03/29/18 17:20 Laboratory Tests 03/29/18 17:20 EKG EKG Sinus rhythm with T with abnormality no STEMI Interpretation Time: [address] Redding Radiology/Procedures Radiology/Procedures [] Course & Med Decision Making Course & Med Decision Making Patient is a 63 year old female who presents with has not gone to gets dialysis in almost 3 weeks due to stating that her tongue and mouth is sore. She states that she had some chills last night but was unsure she exited a fever. She states that she has began having shortness of breath that started over the weekend. Patient states she does have some nausea and some lower mid abdominal pain. She states it's very small and does not actually bother her. She rates her pain a 4 out of 10. States her last bowel movement was today and normal. Chin disposed to be getting dialysis on Wednesdays and Fridays at the [facility]. Lungs are clear in upper lobes but diminished in lower lobes. Abdomen is only slightly tender at lower mid abdomen but rest of abdomen is soft and nontender. EKG shows sinus rhythm but there is a T-wave abnormality seen. Patient has no extremity edema. She is in no respiratory distress and speaks in full clear sentences. Vital signs are within normal limits. Afebrile. Neurologically intact. Alert and oriented. Skin is pink warm and dry. Patient denies urinary symptoms and states that she does still produce some urine. Patient is ambulatory. Patient denies chest pain, dizziness,abdominal distention , vomiting, diarrhea, headache, numbness or tingling. She has history of diabetes, kidney failure, hypertension, high cholesterol, CHF, stents in her heart. He shouldn't is told that she will be admitted to the hospital to her history, symptoms, and not having dialysis for the last 3 weeks. Patient's potassium is 7.0. I spoken to Dr. Bennett nephrology and she states that the senior maintenance technician is actually up in ICU. She states the probably put the patient up on the ICU and have the patient dialysis ice. She states go ahead and give the patient and dextrose, 10 units insulin, 2 g of calcium gluconate and we should get the patient dialysis ice tonight. I will also put in a consult for Nephrology. I have also spoken to Dr Mayo for admission fo this patient. Dragon Disclaimer Dragon Disclaimer This electronic medical record was generated, in whole or in part, using a voice recognition dictation system. Departure Departure Impression: Primary Impression: Hyperkalemia Admitting Physician: Daisy Mayo Condition: STABLE Referrals: NO PCP (PCP) NICHO NOE HEAD WAITER Mar 29, 2018 17:22
[2018-03-29 17:36] LABS: BASO # 0.1 x10^3/uL (0.0-0.2); BASO % 1 % (0-3); EOS # 0.2 x10^3/uL (0.0-0.7); EOS % 3 % (0-3); HEMATOCRIT 25.6 % (36.0-47.0); HEMOGLOBIN 8.7 g/dL (12.0-15.5); LYMPH # 1.2 x10^3/uL (1.0-4.8); LYMPH % 18 % (24-48); MEAN CORPUSCULAR HEMOGLOBIN 34 pg (25-35); MEAN CORPUSCULAR HGB CONC 34 g/dL (31-37); MEAN CORPUSCULAR VOLUME 99 fL (79-100); MONO # 0.5 x10^3/uL (0.0-1.1); MONO % 7 % (0-9); NEUT # 4.5 x10^3uL (1.8-7.7); NEUT % 70 % (31-73); PLATELET COUNT 246 x10^3/uL (140-400); RED BLOOD COUNT 2.59 x10^6/uL (3.50-5.40); RED CELL DISTRIBUTION WIDTH 12.7 % (11.5-14.5); WHITE BLOOD COUNT 6.5 x10^3/uL (4.0-11.0)
[2018-03-29 17:42] LABS: BILIRUBIN,URINE NEGATIVE (NEG); CLARITY,URINE CLOUDY; COLOR,URINE YELLOW; NITRITE,URINE NEGATIVE (NEG); PH,URINE 5.5; PROTEIN,URINE >=300 mg/dL (NEG-TRACE); UROBILINOGEN,URINE 0.2 mg/dL (0.2 mg/dL)
--- NOTE | 2018-03-29 17:47 | EKG ---
[facility] [address] [place] [address] Test Date: 2018-03-29 Test Time: 17:04:08 Pat Name: JORDY Godoypartment: Room: Gender: F Risk Specialist: : 1955 Requested By: NICHO NOE Order Number: [id number] Reading MD: Measurements Intervals [place] Rate: 60 P: MO: QRS: -22 QRSD: 90 T: 103 QT: 458 QTc: 462 Interpretive Statements ATRIAL FIBRILLATION LEFTWARD AXIS T ABNORMALITY IN HIGH LATERAL LEADS ABNORMAL ECG No previous ECG available for comparison
[2018-03-29 17:49] LABS: ALBUMIN/GLOBULIN RATIO 0.6 (1.0-1.7); CALCIUM 7.6 mg/dL (8.5-10.1); CREATININE 14.7 mg/dL (0.6-1.0); GFR 2.5; TOTAL BILIRUBIN 0.3 mg/dL (0.2-1.0); TOTAL PROTEIN 7.8 g/dL (6.4-8.2)
[2018-03-29 17:52] LABS: BACTERIA,URINE MANY /HPF (0-FEW); SQUAMOUS EPITHELIAL CELL,UR MANY /LPF
[2018-03-29] MEDS ORDERED: ONDANSETRON PF 4 MG/2 ML VIAL. IV PRN (18:15)
[2018-03-29] MEDS ORDERED: SODIUM BICARB ADULT 8.4% 50 MEQ/50 ML DISP.SYRIN. IV ONE ×2 (18:15)
[2018-03-29] MEDS ORDERED: CALCIUM GLUCONATE 1,000 MG/10 ML VIAL. IVP ONE (18:15)
[2018-03-29] MEDS ORDERED: DEXTROSE 50% 25 GM / 50ML DISP.SYRIN. IV ONE (18:15)
[2018-03-29] MEDS ORDERED: INSULIN REGULAR 100 UNIT/ML 3ML VIAL. IV ONE (18:15)
[2018-03-29] MEDS ORDERED: ACETAMINOPHEN 325 MG TABLET. PO PRN (18:15)
--- NOTE | 2018-03-29 18:20 | RAD ---
Chest, PA and Lateral: Technique: PA and lateral views of the chest were obtained. History: Shortness of breath. Comparison: 11/14/2017. Findings: Mild prominent bilateral interstitial lung markings likely mild congestive changes. Right-sided dialysis catheter is unchanged. Mild cardiomegaly. IMPRESSION: Mild congestive changes. Electronically signed by: Franco Juarez MD (03/29/2018 6:16 PM) [facility]
[2018-03-29] MEDS ORDERED: IV NORMAL SALINE 1000ML BAG 1,000 ML IV PRN ×4 (19:35→19:45)
[2018-03-29] MEDS ORDERED: DIALYSIS PATIENT. MC PRN ×2 (19:45→20:00)
[2018-03-29] MEDS ORDERED: DEXTROSE 50% 25 GM / 50ML DISP.SYRIN. IV PRN (22:15)
[2018-03-29] MEDS: INSULIN GLARGINE 300 UNITS/3 ML INSULN.PEN. SQ SCH (23:00)
--- NOTE | 2018-03-29 23:40 | HP ---
ADMIT DATE: 03/29/2018 CHIEF COMPLAINT: Shortness of breath. HISTORY OF PRESENT ILLNESS: The patient is a pleasant 63-year-old female well known to my service. She has been on dialysis for quite some time. She tends to be noncompliant with it at times. Once again, she has missed dialysis for about 3 weeks because she has not been feeling well. Her daughter explains that she did not go to dialysis because her tongue hurt and she had an infection on it. She has associated weakness, describes it as agonizing, has been occurring for over a week or two, tried to increase her home meds, but that did not work. I discussed the case with the ER physician. Her potassium is 7. Her BUN is extremely high as well at 132 and creatinine is 14.7. I will go and get the patient admitted and get her dialyzed. PAST MEDICAL HISTORY: Noncompliance; CHF; end-stage renal disease, on dialysis; hypertension; hyperlipidemia; psoriasis; angioplasty; thoracentesis; cardiac stents; dialysis catheter. ALLERGIES: None. FAMILY HISTORY: End-stage renal disease. SOCIAL HISTORY: She does not drink, smoke or take drugs. She lives with her daughter. MEDICATIONS: Reviewed, please refer to the MRAD. REVIEW OF SYSTEMS: GENERAL: No history of weight change, weakness or fevers. SKIN: No bruising, hair changes or rashes. EYES: No blurred, double or loss of vision. NOSE AND THROAT: No history of nosebleeds, hoarseness or sore throat. HEART: No history of palpitations, chest pain or shortness of breath on exertion. LUNGS: She complains of shortness of breath. GASTROINTESTINAL: Denies changes in appetite, nausea, vomiting, diarrhea or constipation. GENITOURINARY: No history of frequency, urgency, hesitancy or nocturia. NEUROLOGIC: Denies history of numbness, tingling, tremor or weakness. PSYCHIATRIC: No history of panic, anxiety or depression. ENDOCRINE: No history of heat or cold intolerance, polyuria or polydipsia. EXTREMITIES: Denies muscle weakness, joint pain, pain on walking or stiffness. PHYSICAL EXAMINATION: VITAL SIGNS: Temperature afebrile, pulse 98, respirations 18, blood pressure 167/90. GENERAL: She is awake, appears depressed and weak. Her daughter is present. HEENT: She has thrush. HEART: Normal S1, S2 with a soft S3. LUNGS: Bibasilar crackles. ABDOMEN: Soft, obese. EXTREMITIES: 2+ edema. SKIN: No rashes. She is pale. ENDOCRINE: No thyromegaly. LYMPHATICS: No cervical nodes. HEMATOPOIETIC: No bruising. LABORATORY DATA: Potassium 7, creatinine is 14.7, BUN is 132. ASSESSMENT AND PLAN: Noncompliance, hyperkalemia, azotemia and thrush. The patient has been admitted. We will start nystatin 5 mL q.i.d. orally swish and swallow. She is going to get dialysis probably tonight or tomorrow. Resume home medicines, frequent labs, PT, OT. PROGNOSIS: Guarded. FINN PEARL DO DR: LUIS A/cris JOB#: [id number] / [id number]
[2018-03-30] VITALS (14 sets, daily range): BP systolic 132–191; BP diastolic 50–85
[2018-03-30] MEDS ORDERED: cloNIDine TTS-1 1 PATCH PATCH.TDWK TD SCH (01:00)
[2018-03-30] MEDS: LISINOPRIL 20 MG TABLET PO SCH ×2 (01:13→09:07)
[2018-03-30] MEDS: amLODIPine BESYLATE 5 MG TABLET PO SCH ×2 (01:13→09:07)
[2018-03-30] MEDS: NYSTATIN 100,000 UNITS/ML 5 ML ORAL.SUSP. SWSW SCH ×5 (01:15→20:38)
[2018-03-30 03:48] LABS: CALCIUM 8.1 mg/dL (8.5-10.1); CREATININE 8.3 mg/dL (0.6-1.0); GFR 4.9; POTASSIUM 4.3 mmol/L (3.5-5.1)
[2018-03-30] MEDS: INSULIN LISPRO 300 UNITS/3 ML INSULN.PEN. SQ SCH ×3 (08:00→17:00)
--- NOTE | 2018-03-30 10:50 | PDOC ---
PROGRESS NOTES Chief Complaint Chief Complaint Hyperkalemia Dialysis History of Present Illness History of Present Illness Pt was seen and examined in ICU today with her daughter Taylor in the room. She has a long history of kidney disease and has been non-compliant with her dialysis. Pt also has thrush on her tongue still, nystatin was prescribed. Renal and ID following. She had no new complaints or overnight events. Vitals Vitals Vital Signs Date Time Temp Pulse Resp B/P (MAP) Pulse Ox O2 Delivery O2 Flow Rate FiO2 03/30/18 10:00 76 13 165/85 (111) 96 Room Air 03/30/18 08:00 99.2 99.2 Physical Exam General: Alert, Oriented X3, Cooperative, No acute distress Heart: Regular rate, Normal S1, Normal S2 Lungs: Clear, Other (no crackles, wheezes) Abdomen: Normal bowel sounds, Soft Extremities: No clubbing, No cyanosis Skin: No breakdown, No significant lesion Labs LABS Laboratory Tests Test 03/29/18 17:20 03/29/18 17:33 03/30/18 00:25 03/30/18 01:34 White Blood Count 6.5 x10^3/uL (4.0-11.0) Red Blood Count 2.59 x10^6/uL (3.50-5.40) Hemoglobin 8.7 g/dL (12.0-15.5) Hematocrit 25.6 % (36.0-47.0) Mean Corpuscular Volume 99 fL (79-100) Mean Corpuscular Hemoglobin 34 pg (25-35) Mean Corpuscular Hemoglobin Concent 34 g/dL (31-37) Red Cell Distribution Width 12.7 % (11.5-14.5) Platelet Count 246 x10^3/uL (140-400) Neutrophils (%) (Auto) 70 % (31-73) Lymphocytes (%) (Auto) 18 % (24-48) Monocytes (%) (Auto) 7 % (0-9) Eosinophils (%) (Auto) 3 % (0-3) Basophils (%) (Auto) 1 % (0-3) Neutrophils # (Auto) 4.5 x10^3uL (1.8-7.7) Lymphocytes # (Auto) 1.2 x10^3/uL (1.0-4.8) Monocytes # (Auto) 0.5 x10^3/uL (0.0-1.1) Eosinophils # (Auto) 0.2 x10^3/uL (0.0-0.7) Basophils # (Auto) 0.1 x10^3/uL (0.0-0.2) Urine Collection Type Unknown Urine Color Yellow Urine Clarity Cloudy Urine pH 5.5 Urine Specific [place] 1.015 Urine Protein >=300 mg/dL (NEG-TRACE) Urine Glucose (UA) 250 mg/dL (NEG) Urine Ketones (Stick) Negative mg/dL (NEG) Urine Blood Moderate (NEG) Urine Nitrite Negative (NEG) Urine Bilirubin Negative (NEG) Urine Urobilinogen Dipstick 0.2 mg/dL (0.2 mg/dL) Urine Leukocyte Esterase Large (NEG) Urine RBC 11-20 /HPF (0-2) Urine WBC 11-20 /HPF (0-4) Urine Squamous Epithelial Cells Many /LPF Urine Bacteria Many /HPF (0-FEW) Sodium Level 135 mmol/L (136-145) Potassium Level 7.0 mmol/L (3.5-5.1) Chloride Level 99 mmol/L (98-107) Carbon Dioxide Level 16 mmol/L (21-32) Anion Gap 20 (6-14) Blood Urea Nitrogen 132 mg/dL (7-20) Creatinine 14.7 mg/dL (0.6-1.0) Estimated GFR (Cockcroft-Gault) 2.5 BUN/Creatinine Ratio 9 (6-20) Glucose Level 170 mg/dL (70-99) Calcium Level 7.6 mg/dL (8.5-10.1) Total Bilirubin 0.3 mg/dL (0.2-1.0) Aspartate Amino Transf (AST/SGOT) 9 U/L (15-37) Alanine Aminotransferase (ALT/SGPT) 9 U/L (14-59) Alkaline Phosphatase 75 U/L (46-116) Troponin I Quantitative < 0.017 ng/mL (0.000-0.055) KR-Dsc-L-Type Natriuretic Peptide 5199 pg/mL (0-124) Total Protein 7.8 g/dL (6.4-8.2) Albumin 3.0 g/dL (3.4-5.0) Albumin/Globulin Ratio 0.6 (1.0-1.7) Bedside Troponin I 0.03 ng/ml (<0.08) Glucose (Fingerstick) 69 mg/dL (70-99) 143 mg/dL (70-99) Test 03/30/18 03:15 03/30/18 09:05 Sodium Level 138 mmol/L (136-145) Potassium Level 4.3 mmol/L (3.5-5.1) Chloride Level 96 mmol/L (98-107) Carbon Dioxide Level 27 mmol/L (21-32) Anion Gap 15 (6-14) Blood Urea Nitrogen 63 mg/dL (7-20) Creatinine 8.3 mg/dL (0.6-1.0) Estimated GFR (Cockcroft-Gault) 4.9 Glucose Level 245 mg/dL (70-99) Calcium Level 8.1 mg/dL (8.5-10.1) Glucose (Fingerstick) 158 mg/dL (70-99) Review of Systems Review of Systems GENERAL: No unexpected wt loss, fever/chills CV: No chest pain, palpitations Assessment and Plan Assessmemt and Plan ASSESSMENT: Hyperkalemia Dialysis PLAN: ICU Monitoring Recheck labs in AM Continue nystatin for oral thrush Home meds Dialyze pt per nephrology Subspecialty input appreciated Consult PT/OT DVT Prophylaxis Comment Review of Relevant I have reviewed the following items fede (where applicable) has been applied. Labs Laboratory Tests Test 03/29/18 17:20 03/29/18 17:33 03/30/18 00:25 03/30/18 01:34 White Blood Count 6.5 x10^3/uL (4.0-11.0) Red Blood Count 2.59 x10^6/uL (3.50-5.40) Hemoglobin 8.7 g/dL (12.0-15.5) Hematocrit 25.6 % (36.0-47.0) Mean Corpuscular Volume 99 fL (79-100) Mean Corpuscular Hemoglobin 34 pg (25-35) Mean Corpuscular Hemoglobin Concent 34 g/dL (31-37) Red Cell Distribution Width 12.7 % (11.5-14.5) Platelet Count 246 x10^3/uL (140-400) Neutrophils (%) (Auto) 70 % (31-73) Lymphocytes (%) (Auto) 18 % (24-48) Monocytes (%) (Auto) 7 % (0-9) Eosinophils (%) (Auto) 3 % (0-3) Basophils (%) (Auto) 1 % (0-3) Neutrophils # (Auto) 4.5 x10^3uL (1.8-7.7) Lymphocytes # (Auto) 1.2 x10^3/uL (1.0-4.8) Monocytes # (Auto) 0.5 x10^3/uL (0.0-1.1) Eosinophils # (Auto) 0.2 x10^3/uL (0.0-0.7) Basophils # (Auto) 0.1 x10^3/uL (0.0-0.2) Urine Collection Type Unknown Urine Color Yellow Urine Clarity Cloudy Urine pH 5.5 Urine Specific [place] 1.015 Urine Protein >=300 mg/dL (NEG-TRACE) Urine Glucose (UA) 250 mg/dL (NEG) Urine Ketones (Stick) Negative mg/dL (NEG) Urine Blood Moderate (NEG) Urine Nitrite Negative (NEG) Urine Bilirubin Negative (NEG) Urine Urobilinogen Dipstick 0.2 mg/dL (0.2 mg/dL) Urine Leukocyte Esterase Large (NEG) Urine RBC 11-20 /HPF (0-2) Urine WBC 11-20 /HPF (0-4) Urine Squamous Epithelial Cells Many /LPF Urine Bacteria Many /HPF (0-FEW) Sodium Level 135 mmol/L (136-145) Potassium Level 7.0 mmol/L (3.5-5.1) Chloride Level 99 mmol/L (98-107) Carbon Dioxide Level 16 mmol/L (21-32) Anion Gap 20 (6-14) Blood Urea Nitrogen 132 mg/dL (7-20) Creatinine 14.7 mg/dL (0.6-1.0) Estimated GFR (Cockcroft-Gault) 2.5 BUN/Creatinine Ratio 9 (6-20) Glucose Level 170 mg/dL (70-99) Calcium Level 7.6 mg/dL (8.5-10.1) Total Bilirubin 0.3 mg/dL (0.2-1.0) Aspartate Amino Transf (AST/SGOT) 9 U/L (15-37) Alanine Aminotransferase (ALT/SGPT) 9 U/L (14-59) Alkaline Phosphatase 75 U/L (46-116) Troponin I Quantitative < 0.017 ng/mL (0.000-0.055) EM-Hhc-P-Type Natriuretic Peptide 5199 pg/mL (0-124) Total Protein 7.8 g/dL (6.4-8.2) Albumin 3.0 g/dL (3.4-5.0) Albumin/Globulin Ratio 0.6 (1.0-1.7) Bedside Troponin I 0.03 ng/ml (<0.08) Glucose (Fingerstick) 69 mg/dL (70-99) 143 mg/dL (70-99) Test 03/30/18 03:15 03/30/18 09:05 Sodium Level 138 mmol/L (136-145) Potassium Level 4.3 mmol/L (3.5-5.1) Chloride Level 96 mmol/L (98-107) Carbon Dioxide Level 27 mmol/L (21-32) Anion Gap 15 (6-14) Blood Urea Nitrogen 63 mg/dL (7-20) Creatinine 8.3 mg/dL (0.6-1.0) Estimated GFR (Cockcroft-Gault) 4.9 Glucose Level 245 mg/dL (70-99) Calcium Level 8.1 mg/dL (8.5-10.1) Glucose (Fingerstick) 158 mg/dL (70-99) Laboratory Tests Test 03/29/18 17:20 03/29/18 17:33 03/30/18 00:25 03/30/18 01:34 White Blood Count 6.5 x10^3/uL (4.0-11.0) Red Blood Count 2.59 x10^6/uL (3.50-5.40) Hemoglobin 8.7 g/dL (12.0-15.5) Hematocrit 25.6 % (36.0-47.0) Mean Corpuscular Volume 99 fL (79-100) Mean Corpuscular Hemoglobin 34 pg (25-35) Mean Corpuscular Hemoglobin Concent 34 g/dL (31-37) Red Cell Distribution Width 12.7 % (11.5-14.5) Platelet Count 246 x10^3/uL (140-400) Neutrophils (%) (Auto) 70 % (31-73) Lymphocytes (%) (Auto) 18 % (24-48) Monocytes (%) (Auto) 7 % (0-9) Eosinophils (%) (Auto) 3 % (0-3) Basophils (%) (Auto) 1 % (0-3) Neutrophils # (Auto) 4.5 x10^3uL (1.8-7.7) Lymphocytes # (Auto) 1.2 x10^3/uL (1.0-4.8) Monocytes # (Auto) 0.5 x10^3/uL (0.0-1.1) Eosinophils # (Auto) 0.2 x10^3/uL (0.0-0.7) Basophils # (Auto) 0.1 x10^3/uL (0.0-0.2) Urine Collection Type Unknown Urine Color Yellow Urine Clarity Cloudy Urine pH 5.5 Urine Specific [place] 1.015 Urine Protein >=300 mg/dL (NEG-TRACE) Urine Glucose (UA) 250 mg/dL (NEG) Urine Ketones (Stick) Negative mg/dL (NEG) Urine Blood Moderate (NEG) Urine Nitrite Negative (NEG) Urine Bilirubin Negative (NEG) Urine Urobilinogen Dipstick 0.2 mg/dL (0.2 mg/dL) Urine Leukocyte Esterase Large (NEG) Urine RBC 11-20 /HPF (0-2) Urine WBC 11-20 /HPF (0-4) Urine Squamous Epithelial Cells Many /LPF Urine Bacteria Many /HPF (0-FEW) Sodium Level 135 mmol/L (136-145) Potassium Level 7.0 mmol/L (3.5-5.1) Chloride Level 99 mmol/L (98-107) Carbon Dioxide Level 16 mmol/L (21-32) Anion Gap 20 (6-14) Blood Urea Nitrogen 132 mg/dL (7-20) Creatinine 14.7 mg/dL (0.6-1.0) Estimated GFR (Cockcroft-Gault) 2.5 BUN/Creatinine Ratio 9 (6-20) Glucose Level 170 mg/dL (70-99) Calcium Level 7.6 mg/dL (8.5-10.1) Total Bilirubin 0.3 mg/dL (0.2-1.0) Aspartate Amino Transf (AST/SGOT) 9 U/L (15-37) Alanine Aminotransferase (ALT/SGPT) 9 U/L (14-59) Alkaline Phosphatase 75 U/L (46-116) Troponin I Quantitative < 0.017 ng/mL (0.000-0.055) HB-Pcl-V-Type Natriuretic Peptide 5199 pg/mL (0-124) Total Protein 7.8 g/dL (6.4-8.2) Albumin 3.0 g/dL (3.4-5.0) Albumin/Globulin Ratio 0.6 (1.0-1.7) Bedside Troponin I 0.03 ng/ml (<0.08) Glucose (Fingerstick) 69 mg/dL (70-99) 143 mg/dL (70-99) Test 03/30/18 03:15 03/30/18 09:05 Sodium Level 138 mmol/L (136-145) Potassium Level 4.3 mmol/L (3.5-5.1) Chloride Level 96 mmol/L (98-107) Carbon Dioxide Level 27 mmol/L (21-32) Anion Gap 15 (6-14) Blood Urea Nitrogen 63 mg/dL (7-20) Creatinine 8.3 mg/dL (0.6-1.0) Estimated GFR (Cockcroft-Gault) 4.9 Glucose Level 245 mg/dL (70-99) Calcium Level 8.1 mg/dL (8.5-10.1) Glucose (Fingerstick) 158 mg/dL (70-99) Medications Current Medications Dextrose (Dextrose 50%-Water Syringe) 25 gm 1X ONCE IV Last administered on at 18:15; Start 03/29/18 at 18:15; Stop 03/29/18 at 18:16; Status DC Insulin Human Regular (HumuLIN R VIAL) 10 unit 1X ONCE IV Last administered on 03/29/18at 18:14; Start 03/29/18 at 18:15; Stop 03/29/18 at 18:16; Status DC Calcium Gluconate (Calcium Gluconate) 1,000 mg 1X ONCE IVP Last administered on 03/29/18at 18:15; Start 03/29/18 at 18:15; Stop 03/29/18 at 18:16; Status DC Sodium Bicarbonate (Sodium Bicarb Adult 8.4% Syr) 50 meq 1X ONCE IV ; Start at 18:15; Stop 03/29/18 at 18:15; Status DC Sodium Bicarbonate (Sodium Bicarb Adult 8.4% Syr) 50 meq 1X ONCE IV ; Start at 18:15; Stop 03/29/18 at 18:15; Status DC Ondansetron HCl (Zofran) 4 mg PRN Q8HRS PRN IV NAUSEA/VOMITING; Start 03/29/18 at 18:15; Stop 03/30/18 at 18:14 Acetaminophen (Tylenol) 650 mg PRN Q4HRS PRN PO FEVER; Start 03/29/18 at 18:15 ; Stop 03/30/18 at 18:14 Sodium Chloride 1,000 ml @ 1,000 mls/hr Q1H PRN IV hypotension; Start 03/29/18 at 19:35; Stop 03/29/18 at 19:38; Status DC Sodium Chloride 1,000 ml @ 400 mls/hr Q2H30M PRN IV PATENCY; Start 03/29/18 at 19:35; Stop 03/29/18 at 19:38; Status DC Info (PHARMACY MONITORING -- do not chart) 1 each PRN DAILY PRN MC SEE COMMENTS ; Start 03/29/18 at 19:45; Stop 03/29/18 at 19:45; Status DC Info (PHARMACY MONITORING -- do not chart) 1 each PRN DAILY PRN MC SEE COMMENTS ; Start 03/29/18 at 20:00 Sodium Chloride 1,000 ml @ 1,000 mls/hr Q1H PRN IV hypotension; Start 03/29/18 at 19:45; Stop 03/30/18 at 01:34; Status DC Sodium Chloride 1,000 ml @ 400 mls/hr Q2H30M PRN IV PATENCY; Start 03/29/18 at 19:45; Stop 03/30/18 at 07:34; Status DC Nystatin (Nystatin Oral Susp) 5 ml [id number] Last administered on 03/30/18at 09:08; Start 03/29/18 at 23:00 Insulin Glargine (Lantus) 20 units QHS SQ ; Start 03/29/18 at 23:00 Dextrose (Dextrose 50%-Water Syringe) 12.5 gm PRN Q15MIN PRN IV SEE COMMENTS; Start 03/29/18 at 22:15 Insulin Human Lispro (HumaLOG) 10 units TIDWMEALS SQ ; Start 03/30/18 at 08:00 Amlodipine Besylate (Norvasc) 5 mg DAILY PO Last administered on 03/30/18at 09: 07; Start 03/30/18 at 01:00 Lisinopril (Prinivil) 20 mg DAILY PO Last administered on 03/30/18at 09:07; Start 03/30/18 at 01:00 Clonidine HCl (Catapres Tts-1) 1 patch WEEKLY TD Last administered on at 01:15; Start 03/30/18 at 01:00 Active Scripts Active Clonazepam 0.5 Mg Tablet 1 Tab PO PRN TID PRN Levemir Flextouch (Insulin Detemir) 100 Unit/1 Ml Insuln.pen 10 Unit SQ QHS 30 Days Furosemide 40 Mg Tablet 40 Mg PO BID Isosorbide Mononitrate Er (Isosorbide Mononitrate) 30 Mg Tab.er.24h 30 Mg PO DAILY Atorvastatin Calcium 40 Mg Tablet 80 Mg PO QHS Aspirin Ec (Aspirin) 81 Mg Tablet.dr 81 Mg PO [id number] Amlodipine Besylate 5 Mg Tablet 5 Mg PO DAILYWLUN Clopidogrel (Clopidogrel Bisulfate) 75 Mg Tablet 75 Mg PO DAILY Glyburide 5 Mg Tablet 1 Tab PO BIDWMEALS Lisinopril 20 Mg Tablet 1 Tab PO DAILY Reported Carvedilol 25 Mg Tablet 25 Mg PO BIDWMEALS Humalog (Insulin Lispro) 100 Unit/1 Ml Cartridge 0 SQ TIDWMEALS PT. ONLY TAKES SLIDING SCALE Vitals/I & O Vital Sign - Last 24 Hours 03/29/18 03/29/18 03/29/18 03/29/18 16:36 17:50 18:12 18:42 Temp 97.6 97.6 Pulse 64 64 62 62 Resp 18 14 16 16 B/P (MAP) 168/75 (106) 146/64 (91) 158/71 (100) 160/70 (100) Pulse Ox 98 98 97 96 O2 Delivery Room Air Room Air Room Air Room Air 03/29/18 03/29/18 03/29/18 03/29/18 19:50 20:00 20:00 20:15 Temp 97.7 97.7 Pulse 62 64 62 Resp 16 17 13 B/P (MAP) 178/57 (97) 154/71 (98) 153/74 (100) Pulse Ox 99 99 100 O2 Delivery Room Air Room Air Room Air Room Air 03/29/18 03/29/18 03/29/18 03/29/18 20:30 20:45 21:00 21:30 Pulse 62 64 62 64 Resp 12 12 14 14 B/P (MAP) 149/58 (88) 145/62 (89) 131/74 (93) 165/74 (104) Pulse Ox 98 99 100 98 O2 Delivery Room Air Room Air Room Air Room Air 03/29/18 03/29/18 03/29/18 03/30/18 22:00 23:02 23:59 00:00 Temp 98.4 98.4 Pulse 66 70 74 Resp 11 16 15 B/P (MAP) 149/65 (93) 179/62 (101) 191/76 (114) Pulse Ox 98 99 99 O2 Delivery Room Air Room Air Room Air Room Air 03/30/18 03/30/18 03/30/18 03/30/18 01:00 01:13 01:13 02:00 Pulse 78 81 81 84 Resp 22 30 B/P (MAP) 181/73 (109) 176/65 176/65 132/78 (96) Pulse Ox 100 98 O2 Delivery Room Air Room Air 03/30/18 03/30/18 03/30/18 03/30/18 03:00 04:00 04:00 05:00 Temp 98.1 98.1 Pulse 70 68 74 Resp 17 14 10 B/P (MAP) 186/68 (107) 165/73 (103) 153/72 (99) Pulse Ox 94 96 97 O2 Delivery Room Air Room Air Room Air Room Air 03/30/18 03/30/18 03/30/18 03/30/18 06:00 08:00 08:00 09:00 Temp 99.2 99.2 Pulse 75 74 81 Resp 11 12 12 B/P (MAP) 177/68 (104) 171/63 (99) 190/68 (108) Pulse Ox 96 97 99 O2 Delivery Room Air Room Air Room Air Room Air 03/30/18 03/30/18 03/30/18 09:07 09:07 10:00 Pulse 80 78 76 Resp 13 B/P (MAP) 190/68 190/68 165/85 (111) Pulse Ox 96 O2 Delivery Room Air Intake and Output 03/29/18 03/29/18 03/30/18 15:00 23:00 07:00 Intake Total 0 ml 420 ml Output Total 0 ml 130 ml Balance 0 ml 290 ml FINN PEARL III DO Mar 30, 2018 10:50
--- NOTE | 2018-03-30 12:08 | PDOC2 ---
CONSULT Date of Consult Date of Consult DATE: 03/30/18 TIME: 11:57 Reason for Consult Reason for Consult: ESRD- last HD 3 weeks back Identification/Chief Complaint Chief Complaint "was feeling weak and mouth felt sore" Source Source: Caregiver, Chart review History of Present Illness Reason for Visit: Hx Obtained from daughter as pt doesn't speak japanese She is 63-year-old female ESRD on HD x 2 years . She has missed dialysis for about 3 weeks because she has not been feeling well. She tends to be noncompliant with it at times. Her daughter explains that she did not go to dialysis because her tongue hurt, she was feeling weak for over a week or two, tried to increase her home meds, but that did not work. In ER she was found to have K of 7 and as per ER CHANNEL LIP STIFFENER INSOLES- mild peaked T waves and also reported oral thrush Her BUN was 132 and creatinine is 14.7. She was dialyzed emergently last night Currently she is comfortable. Daughter doesn't have any concerns . No RRF. No CP , SOB. No N/V/Abdominal pain Past Medical History Cardiovascular: CAD, CHF, HTN, Hyperlipidemia Pulmonary: No pertinent hx, Other CENTRAL NERVOUS SYSTEM: Other GI: GERD Heme/Onc: No pertinent hx Hepatobiliary: No pertinent hx Psych: No pertinent hx Rheumatologic: No pertinent hx Infectious disease: No pertinent hx Renal/: Chronic renal failure Endocrine: Diabetes Past Surgical History Past Surgical History: Other Family History Family History: Diabetes, Heart Disease Social History ALCOHOL: none Drugs: None Lives: with Family Current Medications Current Medications Current Medications Dextrose (Dextrose 50%-Water Syringe) 25 gm 1X ONCE IV Last administered on at 18:15; Start 03/29/18 at 18:15; Stop 03/29/18 at 18:16; Status DC Insulin Human Regular (HumuLIN R VIAL) 10 unit 1X ONCE IV Last administered on 03/29/18at 18:14; Start 03/29/18 at 18:15; Stop 03/29/18 at 18:16; Status DC Calcium Gluconate (Calcium Gluconate) 1,000 mg 1X ONCE IVP Last administered on 03/29/18at 18:15; Start 03/29/18 at 18:15; Stop 03/29/18 at 18:16; Status DC Sodium Bicarbonate (Sodium Bicarb Adult 8.4% Syr) 50 meq 1X ONCE IV ; Start at 18:15; Stop 03/29/18 at 18:15; Status DC Sodium Bicarbonate (Sodium Bicarb Adult 8.4% Syr) 50 meq 1X ONCE IV ; Start at 18:15; Stop 03/29/18 at 18:15; Status DC Ondansetron HCl (Zofran) 4 mg PRN Q8HRS PRN IV NAUSEA/VOMITING; Start 03/29/18 at 18:15; Stop 03/30/18 at 18:14 Acetaminophen (Tylenol) 650 mg PRN Q4HRS PRN PO FEVER; Start 03/29/18 at 18:15 ; Stop 03/30/18 at 18:14 Sodium Chloride 1,000 ml @ 1,000 mls/hr Q1H PRN IV hypotension; Start 03/29/18 at 19:35; Stop 03/29/18 at 19:38; Status DC Sodium Chloride 1,000 ml @ 400 mls/hr Q2H30M PRN IV PATENCY; Start 03/29/18 at 19:35; Stop 03/29/18 at 19:38; Status DC Info (PHARMACY MONITORING -- do not chart) 1 each PRN DAILY PRN MC SEE COMMENTS ; Start 03/29/18 at 19:45; Stop 03/29/18 at 19:45; Status DC Info (PHARMACY MONITORING -- do not chart) 1 each PRN DAILY PRN MC SEE COMMENTS ; Start 03/29/18 at 20:00 Sodium Chloride 1,000 ml @ 1,000 mls/hr Q1H PRN IV hypotension; Start 03/29/18 at 19:45; Stop 03/30/18 at 01:34; Status DC Sodium Chloride 1,000 ml @ 400 mls/hr Q2H30M PRN IV PATENCY; Start 03/29/18 at 19:45; Stop 03/30/18 at 07:34; Status DC Nystatin (Nystatin Oral Susp) 5 ml [id number] [id number] Last administered on 03/30/18at 09:08; Start 03/29/18 at 23:00 Insulin Glargine (Lantus) 20 units QHS SQ ; Start 03/29/18 at 23:00 Dextrose (Dextrose 50%-Water Syringe) 12.5 gm PRN Q15MIN PRN IV SEE COMMENTS; Start 03/29/18 at 22:15 Insulin Human Lispro (HumaLOG) 10 units TIDWMEALS SQ ; Start 03/30/18 at 08:00 Amlodipine Besylate (Norvasc) 5 mg DAILY PO Last administered on 03/30/18at 09: 07; Start 03/30/18 at 01:00 Lisinopril (Prinivil) 20 mg DAILY PO Last administered on 03/30/18at 09:07; Start 03/30/18 at 01:00 Clonidine HCl (Catapres Tts-1) 1 patch WEEKLY TD Last administered on at 01:15; Start 03/30/18 at 01:00 Active Scripts Active Clonazepam 0.5 Mg Tablet 1 Tab PO PRN TID PRN Levemir Flextouch (Insulin Detemir) 100 Unit/1 Ml Insuln.pen 10 Unit SQ QHS 30 Days Furosemide 40 Mg Tablet 40 Mg PO BID Isosorbide Mononitrate Er (Isosorbide Mononitrate) 30 Mg Tab.er.24h 30 Mg PO DAILY Atorvastatin Calcium 40 Mg Tablet 80 Mg PO QHS Aspirin Ec (Aspirin) 81 Mg Tablet.dr 81 Mg PO DAILYWBKFT Amlodipine Besylate 5 Mg Tablet 5 Mg PO DAILYWLUN Clopidogrel (Clopidogrel Bisulfate) 75 Mg Tablet 75 Mg PO DAILY Glyburide 5 Mg Tablet 1 Tab PO BIDWMEALS Lisinopril 20 Mg Tablet 1 Tab PO DAILY Reported Carvedilol 25 Mg Tablet 25 Mg PO BIDWMEALS Humalog (Insulin Lispro) 100 Unit/1 Ml Cartridge 0 SQ TIDWMEALS PT. ONLY TAKES SLIDING SCALE Allergies Allergies: Coded Allergies: No Known Drug Allergies (Unverified , 11/28/17) ROS Review of System As per HPI, Unable to Obtain from Pt Physical Exam Physical Exam GENERAL: NAD HEENT: She has thrush. HEART: Normal S1, S2 with a soft S3. LUNGS: CTA bilat , non labored ABDOMEN: Soft, obese. EXTREMITIES: 1+ edema. SKIN: No rashes. - No cath Neuro- AxO Vital Signs Vital Signs Date Time Temp Pulse Resp B/P (MAP) Pulse Ox O2 Delivery O2 Flow Rate FiO2 03/30/18 11:49 98.2 78 20 150/60 (90) 93 Room Air 98.2 Assessment & Plan ESRD - On HD MWF [facility] Last OP HD was 3 weeks back, has Hx of chronic non compliance Emergent HD last night, Labs stable , HD tomorrow as per her schedule Hyperkalemia- due to multiple missed treatments Emergent HD yesterday DM- as per primary HTN -Continue home meds Thrush- primary managing Discussed with Pt's daughter and case maker Labs Labs Laboratory Tests Test 03/29/18 17:20 03/29/18 17:33 03/30/18 00:25 03/30/18 01:34 White Blood Count 6.5 x10^3/uL (4.0-11.0) Red Blood Count 2.59 x10^6/uL (3.50-5.40) Hemoglobin 8.7 g/dL (12.0-15.5) Hematocrit 25.6 % (36.0-47.0) Mean Corpuscular Volume 99 fL (79-100) Mean Corpuscular Hemoglobin 34 pg (25-35) Mean Corpuscular Hemoglobin Concent 34 g/dL (31-37) Red Cell Distribution Width 12.7 % (11.5-14.5) Platelet Count 246 x10^3/uL (140-400) Neutrophils (%) (Auto) 70 % (31-73) Lymphocytes (%) (Auto) 18 % (24-48) Monocytes (%) (Auto) 7 % (0-9) Eosinophils (%) (Auto) 3 % (0-3) Basophils (%) (Auto) 1 % (0-3) Neutrophils # (Auto) 4.5 x10^3uL (1.8-7.7) Lymphocytes # (Auto) 1.2 x10^3/uL (1.0-4.8) Monocytes # (Auto) 0.5 x10^3/uL (0.0-1.1) Eosinophils # (Auto) 0.2 x10^3/uL (0.0-0.7) Basophils # (Auto) 0.1 x10^3/uL (0.0-0.2) Urine Collection Type Unknown Urine Color Yellow Urine Clarity Cloudy Urine pH 5.5 Urine Specific [place] 1.015 Urine Protein >=300 mg/dL (NEG-TRACE) Urine Glucose (UA) 250 mg/dL (NEG) Urine Ketones (Stick) Negative mg/dL (NEG) Urine Blood Moderate (NEG) Urine Nitrite Negative (NEG) Urine Bilirubin Negative (NEG) Urine Urobilinogen Dipstick 0.2 mg/dL (0.2 mg/dL) Urine Leukocyte Esterase Large (NEG) Urine RBC 11-20 /HPF (0-2) Urine WBC 11-20 /HPF (0-4) Urine Squamous Epithelial Cells Many /LPF Urine Bacteria Many /HPF (0-FEW) Sodium Level 135 mmol/L (136-145) Potassium Level 7.0 mmol/L (3.5-5.1) Chloride Level 99 mmol/L (98-107) Carbon Dioxide Level 16 mmol/L (21-32) Anion Gap 20 (6-14) Blood Urea Nitrogen 132 mg/dL (7-20) Creatinine 14.7 mg/dL (0.6-1.0) Estimated GFR (Cockcroft-Gault) 2.5 BUN/Creatinine Ratio 9 (6-20) Glucose Level 170 mg/dL (70-99) Calcium Level 7.6 mg/dL (8.5-10.1) Total Bilirubin 0.3 mg/dL (0.2-1.0) Aspartate Amino Transf (AST/SGOT) 9 U/L (15-37) Alanine Aminotransferase (ALT/SGPT) 9 U/L (14-59) Alkaline Phosphatase 75 U/L (46-116) Troponin I Quantitative < 0.017 ng/mL (0.000-0.055) KT-Ulf-C-Type Natriuretic Peptide 5199 pg/mL (0-124) Total Protein 7.8 g/dL (6.4-8.2) Albumin 3.0 g/dL (3.4-5.0) Albumin/Globulin Ratio 0.6 (1.0-1.7) Bedside Troponin I 0.03 ng/ml (<0.08) Glucose (Fingerstick) 69 mg/dL (70-99) 143 mg/dL (70-99) Test 03/30/18 03:15 03/30/18 09:05 03/30/18 11:44 Sodium Level 138 mmol/L (136-145) Potassium Level 4.3 mmol/L (3.5-5.1) Chloride Level 96 mmol/L (98-107) Carbon Dioxide Level 27 mmol/L (21-32) Anion Gap 15 (6-14) Blood Urea Nitrogen 63 mg/dL (7-20) Creatinine 8.3 mg/dL (0.6-1.0) Estimated GFR (Cockcroft-Gault) 4.9 Glucose Level 245 mg/dL (70-99) Calcium Level 8.1 mg/dL (8.5-10.1) Glucose (Fingerstick) 158 mg/dL (70-99) 219 mg/dL (70-99) Laboratory Tests Test 03/29/18 17:20 03/29/18 17:33 03/30/18 00:25 03/30/18 01:34 White Blood Count 6.5 x10^3/uL (4.0-11.0) Red Blood Count 2.59 x10^6/uL (3.50-5.40) Hemoglobin 8.7 g/dL (12.0-15.5) Hematocrit 25.6 % (36.0-47.0) Mean Corpuscular Volume 99 fL (79-100) Mean Corpuscular Hemoglobin 34 pg (25-35) Mean Corpuscular Hemoglobin Concent 34 g/dL (31-37) Red Cell Distribution Width 12.7 % (11.5-14.5) Platelet Count 246 x10^3/uL (140-400) Neutrophils (%) (Auto) 70 % (31-73) Lymphocytes (%) (Auto) 18 % (24-48) Monocytes (%) (Auto) 7 % (0-9) Eosinophils (%) (Auto) 3 % (0-3) Basophils (%) (Auto) 1 % (0-3) Neutrophils # (Auto) 4.5 x10^3uL (1.8-7.7) Lymphocytes # (Auto) 1.2 x10^3/uL (1.0-4.8) Monocytes # (Auto) 0.5 x10^3/uL (0.0-1.1) Eosinophils # (Auto) 0.2 x10^3/uL (0.0-0.7) Basophils # (Auto) 0.1 x10^3/uL (0.0-0.2) Urine Collection Type Unknown Urine Color Yellow Urine Clarity Cloudy Urine pH 5.5 Urine Specific [place] 1.015 Urine Protein >=300 mg/dL (NEG-TRACE) Urine Glucose (UA) 250 mg/dL (NEG) Urine Ketones (Stick) Negative mg/dL (NEG) Urine Blood Moderate (NEG) Urine Nitrite Negative (NEG) Urine Bilirubin Negative (NEG) Urine Urobilinogen Dipstick 0.2 mg/dL (0.2 mg/dL) Urine Leukocyte Esterase Large (NEG) Urine RBC 11-20 /HPF (0-2) Urine WBC 11-20 /HPF (0-4) Urine Squamous Epithelial Cells Many /LPF Urine Bacteria Many /HPF (0-FEW) Sodium Level 135 mmol/L (136-145) Potassium Level 7.0 mmol/L (3.5-5.1) Chloride Level 99 mmol/L (98-107) Carbon Dioxide Level 16 mmol/L (21-32) Anion Gap 20 (6-14) Blood Urea Nitrogen 132 mg/dL (7-20) Creatinine 14.7 mg/dL (0.6-1.0) Estimated GFR (Cockcroft-Gault) 2.5 BUN/Creatinine Ratio 9 (6-20) Glucose Level 170 mg/dL (70-99) Calcium Level 7.6 mg/dL (8.5-10.1) Total Bilirubin 0.3 mg/dL (0.2-1.0) Aspartate Amino Transf (AST/SGOT) 9 U/L (15-37) Alanine Aminotransferase (ALT/SGPT) 9 U/L (14-59) Alkaline Phosphatase 75 U/L (46-116) Troponin I Quantitative < 0.017 ng/mL (0.000-0.055) LW-Asu-H-Type Natriuretic Peptide 5199 pg/mL (0-124) Total Protein 7.8 g/dL (6.4-8.2) Albumin 3.0 g/dL (3.4-5.0) Albumin/Globulin Ratio 0.6 (1.0-1.7) Bedside Troponin I 0.03 ng/ml (<0.08) Glucose (Fingerstick) 69 mg/dL (70-99) 143 mg/dL (70-99) Test 03/30/18 03:15 03/30/18 09:05 03/30/18 11:44 Sodium Level 138 mmol/L (136-145) Potassium Level 4.3 mmol/L (3.5-5.1) Chloride Level 96 mmol/L (98-107) Carbon Dioxide Level 27 mmol/L (21-32) Anion Gap 15 (6-14) Blood Urea Nitrogen 63 mg/dL (7-20) Creatinine 8.3 mg/dL (0.6-1.0) Estimated GFR (Cockcroft-Gault) 4.9 Glucose Level 245 mg/dL (70-99) Calcium Level 8.1 mg/dL (8.5-10.1) Glucose (Fingerstick) 158 mg/dL (70-99) 219 mg/dL (70-99) Review All relevant outside records, renal labs, imaging studies, telemetry/EKG's were reviewed. JAIMEE MATIAS MD Mar 30, 2018 12:08
[2018-03-30] MEDS: INSULIN GLARGINE 300 UNITS/3 ML INSULN.PEN. SQ SCH (20:42)
[2018-03-31 03:01] VITALS: BP 175/62
[2018-03-31 07:00] VITALS: BP 146/46
[2018-03-31] MEDS: INSULIN LISPRO 300 UNITS/3 ML INSULN.PEN. SQ SCH ×2 (08:22→12:00)
[2018-03-31] MEDS: amLODIPine BESYLATE 5 MG TABLET PO SCH (08:23)
[2018-03-31] MEDS: NYSTATIN 100,000 UNITS/ML 5 ML ORAL.SUSP. SWSW SCH ×2 (08:24→13:00)
[2018-03-31] MEDS: LISINOPRIL 20 MG TABLET PO SCH (08:24)
[2018-03-31] MEDS ORDERED: IV NORMAL SALINE 1000ML BAG 1,000 ML IV PRN ×2 (10:19)
[2018-03-31] MEDS ORDERED: DIALYSIS PATIENT. MC PRN (10:30)
[2018-03-31] MEDS ORDERED: ATOR40TA59 PO (11:34)
[2018-03-31] MEDS ORDERED: NYST100054 SWSW (11:34)
[2018-03-31] MEDS ORDERED: INSU100I11 SQ (11:34)
[2018-03-31] MEDS ORDERED: AMLO5TAB7 PO (11:34)
[2018-03-31] MEDS ORDERED: CLOP75TA PO (11:34)
[2018-03-31] MEDS ORDERED: LISI-334 PO (11:34)
[2018-03-31] MEDS ORDERED: INSU100I13 SQ (11:34)
[2018-03-31] MEDS ORDERED: CLON1PAT TD (11:34)
--- NOTE | 2018-03-31 12:38 | PDOC3 ---
Discharge Summary [facility] Date of Admission: Mar 29, 2018 Discharge Date: Mar 31, 2018 Admitting Diagnosis ESRD on HD, missed HD for 10ds oral thrush dm2 on insulin hyperkalemia morbid obesity non compliance, not fu with PCP always CONSULTS renal Brief Hospital Course Ms. Varela is a 63 old F, dm2, ESRD on HD, came for sob, chills. She speaks icelandic, often hospital visitor, not fu with PCP, always required her home meds refilled every time when she is in hosp. daughter speaking [place] well said she missed HD for 10ds, since she was feeling chills, with oral thrush , not eating. in ER, pt was fouND K 7, admitted to ICU and got HD, bmp much better. nystatin mouth wash started. pt feels good now, on levemir 7 u qhs, humalog 10u tid. dc home after HD if ok with renal. resumed all home meds for 1 month. dc time 35min. cont nystatin mouth wash for 10ds. General: Alert, Oriented X3, Cooperative, No acute distress Heart: Regular rate, Normal S1, Normal S2. tongue has mild white thrush Lungs: Clear, Other (no crackles, wheezes) Abdomen: Normal bowel sounds, Soft Extremities: No clubbing, No cyanosis Skin: No breakdown, No significant lesion Patient History: FH: heart disease 32 MOTHER FHx: diabetes mellitus 33 FATHER Unknown Disposition home CONDITION AT DISCHARGE: Improved, Stable Scheduled Amlodipine Besylate (Amlodipine Besylate), 5 MG PO DAILYWLUN Aspirin (Aspirin Ec), 81 MG PO DAILYWBKFT Atorvastatin Calcium (Atorvastatin Calcium), 80 MG PO QHS Clonidine (Clonidine Tts-1), 1 PATCH TD WEEKLY Clopidogrel Bisulfate (Clopidogrel), 75 MG PO DAILY Insulin Glargine,Hum.rec.anlog (Lantus Solostar), 7 UNITS SQ QHS Insulin Lispro (Humalog), 10 UNITS SQ TIDWMEALS Lisinopril (Lisinopril), 1 TAB PO DAILY Nystatin (Nystatin), 5 ML SWSW [id number] Discontinued Medications Carvedilol (Carvedilol), 25 MG PO BIDWMEALS, (Reported) Clonazepam (Clonazepam), 1 TAB PO PRN TID PRN for TREMORS Furosemide (Furosemide), 40 MG PO BID Glyburide (Glyburide), 1 TAB PO BIDWMEALS Insulin Detemir (Levemir Flextouch), 10 UNIT SQ QHS Insulin Lispro (Humalog), 0 SQ TIDWMEALS, (Reported) Isosorbide Mononitrate (Isosorbide Mononitrate Er), 30 MG PO DAILY SALLY LLOYD MD Mar 31, 2018 12:38
[2018-03-31 15:00] VITALS: BP 173/58
--- NOTE | 2018-03-31 16:27 | PDOC ---
SUBJECTIVE ROS No new concerns OBJECTIVE Vital Signs Vital Signs Date Time Temp Pulse Resp B/P (MAP) Pulse Ox O2 Delivery O2 Flow Rate FiO2 03/31/18 15:00 98.8 72 20 173/58 (96) 97 Room Air 98.8 I & 0 Intake and Output 03/31/18 07:00 Intake Total 100 ml Output Total 75 ml Balance 25 ml Intake Oral 100 ml Output Urine Total 75 ml PHYSICAL EXAM Physical Exam GENERAL: NAD HEENT: She has thrush. HEART: Normal S1, S2 with a soft S3. LUNGS: CTA bilat , non labored ABDOMEN: Soft, obese. EXTREMITIES: 1+ edema. SKIN: No rashes. - No cath Neuro- AxO Vital Signs Vital Signs Date Time Temp Pulse Resp B/P (MAP) Pulse Ox O2 Delivery O2 Flow Rate FiO2 03/30/18 11:49 98.2 78 20 150/60 (90) 93 Room Air 98.2 DIAGNOSIS/ASSESSMENT Assessment & Plan ESRD - On HD MWF [facility] Last OP HD was 3 weeks back, has Hx of chronic non compliance Emergent HD on 03/29 Seen on Hd today, tolerating well,continue as Ordered DM- as per primary HTN -Continue home meds Thrush- primary managing Discussed with cannon fire direction specialist COMMENT/RELEVANT DATA Meds Current Medications Medications (Trade) Dose Ordered Sig/[place] Start Time Stop Time Status Last Admin Dose Admin Acetaminophen (Tylenol) 650 mg PRN Q4HRS PRN 03/29/18 18:15 03/30/18 18:14 DC Amlodipine Besylate (Norvasc) 5 mg DAILY 03/30/18 01:00 03/31/18 08:23 5 MG Calcium Gluconate (Calcium Gluconate) 1,000 mg 1X ONCE 03/29/18 18:15 03/29/18 18:16 DC 03/29/18 18:15 1,000 MG Clonidine HCl (Catapres Tts-1) 1 patch WEEKLY 03/30/18 01:00 03/30/18 01:15 1 PATCH Dextrose (Dextrose 50%-Water Syringe) 12.5 gm PRN Q15MIN PRN 03/29/18 22:15 Info (PHARMACY MONITORING -- do not chart) 1 each PRN DAILY PRN 03/31/18 10:30 Insulin Glargine (Lantus) 7 units QHS 03/31/18 21:00 Insulin Human Lispro (HumaLOG) 10 units TIDWMEALS 03/30/18 08:00 03/30/18 12:09 5 UNITS Insulin Human Regular (HumuLIN R VIAL) 10 unit 1X ONCE 03/29/18 18:15 03/29/18 18:16 DC 03/29/18 18:14 10 UNIT Lisinopril (Prinivil) 20 mg DAILY 03/30/18 01:00 03/31/18 08:24 20 MG Nystatin (Nystatin Oral Susp) 5 ml [id number] 03/29/18 23:00 03/31/18 08:24 5 ML Ondansetron HCl (Zofran) 4 mg PRN Q8HRS PRN 03/29/18 18:15 03/30/18 18:14 DC 03/30/18 12:47 4 MG Sodium Bicarbonate (Sodium Bicarb Adult 8.4% Syr) 50 meq 1X ONCE 03/29/18 18:15 03/29/18 18:15 DC Sodium Chloride 1,000 ml @ 400 mls/hr Q2H30M PRN 03/31/18 10:19 03/31/18 22:18 Lab Laboratory Tests Test 03/30/18 16:37 03/30/18 20:31 03/31/18 07:19 03/31/18 12:14 Glucose (Fingerstick) 109 mg/dL (70-99) 206 mg/dL (70-99) 90 mg/dL (70-99) 174 mg/dL (70-99) Results All relevant outside records, renal labs, imaging studies, telemetry/EKG's were reviewed. JAIMEE MATIAS MD Mar 31, 2018 16:27
[2018-03-31] MEDS ORDERED: INSULIN GLARGINE 300 UNITS/3 ML INSULN.PEN. SQ SCH (21:00)
== END 2018-03-31 16:45 | disposition home or self-care (01) | DRG 640 ==
LOC: ER 16:36 → 1 WEST ICU 18:06 → ER 19:38 → 5 SOUTH 03-30 11:37
PROVIDERS: ADMIT Internal Medicine; ATTEND Internal Medicine
PROC: 5A1D70Z Performance of Urinary Filtration, Intermittent, Less than 6 Hours Per Day (ICD-10-PCS; principal; 2018-03-29)
PROC: 5A1D70Z Performance of Urinary Filtration, Intermittent, Less than 6 Hours Per Day (ICD-10-PCS; 2018-03-31)
DX: E87.5 Hyperkalemia (principal); N18.6 End stage renal disease; I13.2 Hypertensive heart and chronic kidney disease with heart failure and with stage 5 chronic kidney disease, or end stage renal disease; B37.0 Candidal stomatitis; I50.9 Heart failure, unspecified; E11.22 Type 2 diabetes mellitus with diabetic chronic kidney disease; E66.01 Morbid (severe) obesity due to excess calories; E78.00 Pure hypercholesterolemia, unspecified; L40.9 Psoriasis, unspecified; I25.10 Atherosclerotic heart disease of native coronary artery without angina pectoris; K21.9 Gastro-esophageal reflux disease without esophagitis; I25.2 Old myocardial infarction; Z99.2 Dependence on renal dialysis; Z95.5 Presence of coronary angioplasty implant and graft; Z91.19 Patient's noncompliance with other medical treatment and regimen; Z91.15 Patient's noncompliance with renal dialysis; E78.5 Hyperlipidemia, unspecified; Z79.4 Long term (current) use of insulin; Z83.3 Family history of diabetes mellitus; Z68.33 Body mass index [BMI] 33.0-33.9, adult
CPT/HCPCS: 36415; 71046; 80048; 80053; 81001; 82962; 83880; 84484; 85025; 87086; 87641; 93005; 96374; 96375; J0610; J1815; J2405; J7042; 99285-25

== ENCOUNTER 2018-05-21 17:03 | Inpatient (IN) | payer OTHER ==
[~2018-05-21] VITALS: Ht 162.6 cm; Wt 82.6 kg
[~2018-05-21 17:03] MED LIST changes: +AMLO5TAB10 PO; -AMLO5TAB7 PO; +CLON1PAT TD; +INSU100I11 SQ; +INSU100I13 SQ; +NYST100054 SWSW
[2018-05-21 17:47] LABS: BASO # 0.1 x10^3/uL (0.0-0.2); BASO % 1 % (0-3); EOS # 0.4 x10^3/uL (0.0-0.7); EOS % 6 % (0-3); HEMATOCRIT 22.7 % (36.0-47.0); HEMOGLOBIN 7.5 g/dL (12.0-15.5); LYMPH # 1.2 x10^3/uL (1.0-4.8); LYMPH % 19 % (24-48); MEAN CORPUSCULAR HEMOGLOBIN 32 pg (25-35); MEAN CORPUSCULAR HGB CONC 33 g/dL (31-37); MEAN CORPUSCULAR VOLUME 97 fL (79-100); MONO # 0.6 x10^3/uL (0.0-1.1); MONO % 9 % (0-9); NEUT % 65 % (31-73); PLATELET COUNT 175 x10^3/uL (140-400); RED BLOOD COUNT 2.33 x10^6/uL (3.50-5.40); RED CELL DISTRIBUTION WIDTH 13.2 % (11.5-14.5); WHITE BLOOD COUNT 6.2 x10^3/uL (4.0-11.0)
[2018-05-21 17:55] LABS: BILIRUBIN,URINE NEGATIVE (NEG); CLARITY,URINE CLOUDY; COLOR,URINE YELLOW; NITRITE,URINE NEGATIVE (NEG); PH,URINE 5.5; PROTEIN,URINE >=300 mg/dL (NEG-TRACE); UROBILINOGEN,URINE 0.2 mg/dL (0.2 mg/dL)
[2018-05-21 17:56] LABS: PROTHROMBIN TIME PATIENT 13.7 SEC (11.7-14.0)
[2018-05-21 18:02] LABS: ALBUMIN 3.3 g/dL (3.4-5.0); ALBUMIN/GLOBULIN RATIO 0.9 (1.0-1.7); CALCIUM 7.3 mg/dL (8.5-10.1); CREATININE 16.5 mg/dL (0.6-1.0); GFR 2.2; TOTAL BILIRUBIN 0.3 mg/dL (0.2-1.0); TOTAL PROTEIN 7.1 g/dL (6.4-8.2)
[2018-05-21 18:03] LABS: POTASSIUM 6.8 mmol/L (3.5-5.1)
--- NOTE | 2018-05-21 18:05 | PHYS DOC ---
Past Medical History Past Medical History: CHF, Diabetes-Type II, High Cholesterol, Hypertension, [place] , Renal Disease, Renal Failure, Other Additional Past Medical Histor: PSORASIS (NICHO NOE APRN) Past Surgical History: Angioplasty, Other Additional Past Surgical Histo: 2L fluid removed from lungs, CARDIAC CATH/ STENTS,DIALYSIS CATH R CHEST (NICHO NOE APRN) Alcohol Use: None Drug Use: None (NICHO NOE APRN) Adult General Chief Complaint Chief Complaint: DIALYSIS PROBLEM HPI HPI Patient is a 63 year old female who presents with no dialysis �3 weeks. Patient speaks [place] but daughter interprets for her daughter states that the patient has not vomited I urinalysis because her port isn't working and the dialysis employees don't want to deal with it. Patient is now complaining of shortness of breath. Patient has no other complaints except for shortness of breath. Patient states she is still making a small amount of urine. (NICHO NOE APRN) Review of Systems Review of Systems Constitutional: Denies fever or chills [] Eyes: Denies change in visual acuity, redness, or eye pain [] HENT: Denies nasal congestion or sore throat [] Respiratory: Denies cough or shortness of breath [] Cardiovascular: No additional information not addressed in HPI [] GI: Denies abdominal pain, nausea, vomiting, bloody stools or diarrhea [] : Denies dysuria or hematuria [] Musculoskeletal: Denies back pain or joint pain [] Integument: Denies rash or skin lesions [] Neurologic: Denies headache, focal weakness or sensory changes [] Endocrine: Denies polyuria or polydipsia [] All other systems were reviewed and found to be within normal limits, except as documented in this note. (NICHO NOE APRN) Current Medications Current Medications Current Medications Medications (Trade) Dose Ordered Sig/[place] Start Time Stop Time Status Last Admin Dose Admin Albuterol Sulfate (Ventolin Neb Soln) 10 mg 1X ONCE 05/21/18 18:15 05/21/18 18:18 DC 05/21/18 18:29 10 MG Calcium Gluconate (Calcium Gluconate) 1,000 mg 1X ONCE 05/21/18 18:15 05/21/18 18:18 DC 05/21/18 18:35 1,000 MG Dextrose (Dextrose 50%-Water Syringe) 25 gm 1X ONCE 05/21/18 18:15 05/21/18 18:18 DC 05/21/18 18:45 25 GM Insulin Human Regular (HumuLIN R VIAL) 10 unit 1X ONCE 05/21/18 18:15 05/21/18 18:18 DC 05/21/18 18:50 10 UNIT (CHRISSIE WOLF DO) Allergies Allergies Allergies Coded Allergies Type Severity Reaction Last Updated Verified No Known Drug Allergies 11/28/17 No (CHRISSIE WOLF DO) Physical Exam Physical Exam Constitutional: Well developed, well nourished, no acute distress, non-toxic appearance. [] HENT: Normocephalic, atraumatic, bilateral external ears normal, oropharynx moist, no oral exudates, nose normal. [] Eyes: PERRLA, EOMI, conjunctiva normal, no discharge. [] Neck: Normal range of motion, no tenderness, supple, no stridor. [] Cardiovascular:Heart rate regular rhythm, no murmur [] Lungs & Thorax: Bilateral breath sounds clear to auscultation [] Abdomen: Bowel sounds normal, soft, no tenderness, no masses, no pulsatile masses. [] Skin: Warm, dry, no erythema, no rash. [] Back: No tenderness, no CVA tenderness. [] Extremities: No tenderness, no cyanosis, no clubbing, ROM intact, no edema. [] Neurologic: Alert and oriented X 3, normal motor function, normal sensory function, no focal deficits noted. [] Psychologic: Affect normal, judgement normal, mood normal. [] (NICHO ONE APRN) Current Patient Data Vital Signs Vital Signs Date Time Temp Pulse Resp B/P (MAP) Pulse Ox O2 Delivery O2 Flow Rate FiO2 05/21/18 17:25 97.6 71 20 191/78 (115) 97 Room Air 97.6 (CHRISSIE WOLF DO) Lab Values Laboratory Tests Test 05/21/18 17:30 05/21/18 17:40 05/21/18 18:10 White Blood Count 6.2 x10^3/uL (4.0-11.0) Red Blood Count 2.33 x10^6/uL (3.50-5.40) L Hemoglobin 7.5 g/dL (12.0-15.5) L Hematocrit 22.7 % (36.0-47.0) L Mean Corpuscular Volume 97 fL (79-100) Mean Corpuscular Hemoglobin 32 pg (25-35) Mean Corpuscular Hemoglobin Concent 33 g/dL (31-37) Red Cell Distribution Width 13.2 % (11.5-14.5) Platelet Count 175 x10^3/uL (140-400) Neutrophils (%) (Auto) 65 % (31-73) Lymphocytes (%) (Auto) 19 % (24-48) L Monocytes (%) (Auto) 9 % (0-9) Eosinophils (%) (Auto) 6 % (0-3) H Basophils (%) (Auto) 1 % (0-3) Neutrophils # (Auto) 4.0 x10^3uL (1.8-7.7) Lymphocytes # (Auto) 1.2 x10^3/uL (1.0-4.8) Monocytes # (Auto) 0.6 x10^3/uL (0.0-1.1) Eosinophils # (Auto) 0.4 x10^3/uL (0.0-0.7) Basophils # (Auto) 0.1 x10^3/uL (0.0-0.2) Prothrombin Time 13.7 SEC (11.7-14.0) Prothrombin Time INR 1.1 (0.8-1.1) Sodium Level 139 mmol/L (136-145) Potassium Level 6.8 mmol/L (3.5-5.1) *H Chloride Level 101 mmol/L (98-107) Carbon Dioxide Level 16 mmol/L (21-32) L Anion Gap 22 (6-14) H Blood Urea Nitrogen 149 mg/dL (7-20) H Creatinine 16.5 mg/dL (0.6-1.0) H Estimated GFR (Cockcroft-Gault) 2.2 BUN/Creatinine Ratio 9 (6-20) Glucose Level 142 mg/dL (70-99) H Lactic Acid Level 1.5 mmol/L (0.4-2.0) Calcium Level 7.3 mg/dL (8.5-10.1) L Total Bilirubin 0.3 mg/dL (0.2-1.0) Aspartate Amino Transferase (AST) 10 U/L (15-37) L Alanine Aminotransferase (ALT) 14 U/L (14-59) Alkaline Phosphatase 93 U/L (46-116) Troponin I Quantitative < 0.017 ng/mL (0.000-0.055) Total Protein 7.1 g/dL (6.4-8.2) Albumin 3.3 g/dL (3.4-5.0) L Albumin/Globulin Ratio 0.9 (1.0-1.7) L Urine Collection Type Unknown Urine Color Yellow Urine Clarity Cloudy Urine pH 5.5 Urine Specific [place] 1.015 Urine Protein >=300 mg/dL (NEG-TRACE) Urine Glucose (UA) 100 mg/dL (NEG) Urine Ketones (Stick) Negative mg/dL (NEG) Urine Blood Moderate (NEG) Urine Nitrite Negative (NEG) Urine Bilirubin Negative (NEG) Urine Urobilinogen Dipstick 0.2 mg/dL (0.2 mg/dL) Urine Leukocyte Esterase Small (NEG) Urine RBC 6-10 /HPF (0-2) Urine WBC 1-4 /HPF (0-4) Urine Squamous Epithelial Cells Few /LPF Urine Bacteria 0 /HPF (0-FEW) O2 Saturation 96 % (92-99) Arterial Blood pH 7.26 (7.35-7.45) L Arterial Blood pCO2 at Patient Temp 29 mmHg (35-46) L Arterial Blood pO2 at Patient Temp 101 mmHg (65-108) Arterial Blood HCO3 12 mmol/L (21-28) L Arterial Blood Base Excess -13 mmol/L (-3-3) L FiO2 21 Laboratory Tests 05/21/18 17:30 Laboratory Tests 05/21/18 17:30 (CHRISSIE WOLF DO) EKG EKG Sinus rhythm no STEMI Interpretation Time: [address] Main (NICHO NOE APRN) Radiology/Procedures Radiology/Procedures Chest xray (NICHO NOE APRN) Course & Med Decision Making Course & Med Decision Making Patient is a 63 year old female who presents with no dialysis �3 weeks. Patient speaks [place] but daughter interprets for her daughter states that the patient has had dialysis because "her port isn't working and the dialysis employees don' t want to deal with it". Patient is now complaining of shortness of breath. Patient has no other complaints except for shortness of breath. Patient states she is still making a small amount of urine. Alert and oriented. Skin pink warm and dry. Mucous membranes are moist. EKG shows sinus rhythm with peaked T waves and no STEMI. Patient has no extremity or peripheral edema. Lungs are clear in upper lobes but diminished in lower lobes. Abdomen is soft and nontender. Patient denies any chest pain, dizziness, headache, syncopal episodes, nausea, vomiting, diarrhea, fevers, abdominal pain, flank pain. Potassium 6.8. Patient is given calcium gluconate, dextrose, insulin, albuterol inhalation in the ED. Chest x-ray read by Dr. Wolf shows a possible small effusion and probable atelectasis. 1820: I spoke with Dr. Rosa states that the patient is very noncompliant with her dialysis and has not had any blood work for a long time. Dr. Rosa told the patient and daughter that the patient needs blood work before she can come back and get dialysis, therefore she would have to come to the ED. Dr. Rosa states that the story about the dialysis port he does not think is true but he is unsure as she has not been to dialysis. Dr. Rosa states to go ahead and give the patient Kayexalate 30 g now and repeated in 6 hours. He states that she will receive dialysis in the morning. I have spoken to the hospitalist and the Patient is admitted to the hospital by Dr Briceno. (NICHO NOE APRN) Dragon Disclaimer Dragon Disclaimer This electronic medical record was generated, in whole or in part, using a voice recognition dictation system. (NICHO NOE APRN) Departure Departure Impression: Primary Impression: Hyperkalemia Additional Impressions: ESRD (end stage renal disease) Noncompliance with renal dialysis Anemia Disposition: ADMITTED INPATIENT Admitting Physician: Jeanette Briceno (CHRISSIE WOLF DO) Condition: GUARDED Referrals: NO PCP (PCP) Attending Signature Attending Signature I have reviewed the PA/DIRECTOR OF REHABILITATIVE SERVICES's note and plan of care. I was available for consultation as needed during the patient's visit in the emergency department. I agree with the clinical impression, plan, and disposition. (CHRISSIE WOLF DO) Problem Qualifiers Additional Impressions: Anemia Anemia type: unspecified type Qualified Codes: D64.9 - Anemia, unspecified NICHO NOE APRN May 21, 2018 18:05 CHRISSIE WOLF DO May 21, 2018 22:29
[2018-05-21 18:11] LABS: BACTERIA,URINE 0 /HPF (0-FEW); SQUAMOUS EPITHELIAL CELL,UR FEW /LPF
[2018-05-21] MEDS ORDERED: DEXTROSE 50% 25 GM / 50ML DISP.SYRIN. IV ONE (18:15)
[2018-05-21] MEDS ORDERED: INSULIN REGULAR 100 UNIT/ML 3ML VIAL. IV ONE (18:15)
[2018-05-21] MEDS ORDERED: ALBUTEROL SULFATE 2.5 MG/3 ML NEBU. CONT NEB ONE (18:15)
[2018-05-21] MEDS ORDERED: CALCIUM GLUCONATE 1,000 MG/10 ML VIAL. IVP ONE (18:15)
[2018-05-21 18:26] LABS: BASE EXCESS ABG -13 mmol/L (-3-3); HCO3 ABG 12 mmol/L (21-28); PCO2 ABG 29 mmHg (35-46); PO2 ABG 101 mmHg (65-108); SAT O2 ABG 96 % (92-99)
[2018-05-21] MEDS ORDERED: SODIUM POLYSTYRENE SULFONATE 15 GM/60 ML ORAL.SUSP. PO ONE (18:30)
[2018-05-21 18:50] LABS: FIO2 ABG 21
[2018-05-21] MEDS ORDERED: SEVE800T9 PO (20:35)
[2018-05-21] MEDS ORDERED: INSULIN GLARGINE 300 UNITS/3 ML INSULN.PEN. SQ SCH (21:15)
[2018-05-21] MEDS ORDERED: ATORVASTATIN CALCIUM 40 MG TABLET. PO SCH (21:15)
--- NOTE | 2018-05-21 21:53 | PDOC1 ---
History and Physical Date of Admission Date of Admission DATE: 05/21/18 TIME: 21:51 Identification/Chief Complaint Chief Complaint short of breath, nausea Source Source: Caregiver, Chart review, Patient History of Present Illness History of Present Illness Ana is a 63 year old female admit from the ER for worsening dyspnea. She is ESRD patient, and has missed HD for 3 weeks, her daughter assists with history and explains that the HD cath doesnt work and no body wants to help fix it, but am not sure what she meant. Some nausea, feeling improved now dyspnea had worsened last 24 hours, but she appears comfortable Past Medical History Cardiovascular: CAD, CHF, HTN, Hyperlipidemia Pulmonary: No pertinent hx, Other CENTRAL NERVOUS SYSTEM: Other GI: GERD Heme/Onc: No pertinent hx Hepatobiliary: No pertinent hx Psych: No pertinent hx Rheumatologic: No pertinent hx Infectious disease: No pertinent hx Renal/: Chronic renal failure Endocrine: Diabetes Past Surgical History Past Surgical History: Other Family History Family History: Diabetes, Heart Disease Social History Smoke: No ALCOHOL: none Drugs: None Current Medications Current Medications Current Medications Calcium Gluconate (Calcium Gluconate) 1,000 mg 1X ONCE IVP Last administered on 05/21/18at 18:35; Start 05/21/18 at 18:15; Stop 05/21/18 at 18:18; Status DC Dextrose (Dextrose 50%-Water Syringe) 25 gm 1X ONCE IV Last administered on at 18:45; Start 05/21/18 at 18:15; Stop 05/21/18 at 18:18; Status DC Insulin Human Regular (HumuLIN R VIAL) 10 unit 1X ONCE IV Last administered on 05/21/18at 18:50; Start 05/21/18 at 18:15; Stop 05/21/18 at 18:18; Status DC Albuterol Sulfate (Ventolin Neb Soln) 10 mg 1X ONCE CONT NEB Last administered on 05/21/18at 18:29; Start 05/21/18 at 18:15; Stop 05/21/18 at 18:18 ; Status DC Sodium Polystyrene Sulfonate (Kayexalate) 30 gm 1X ONCE PO Last administered on 05/21/18at 18:51; Start 05/21/18 at 18:30; Stop 05/21/18 at 18:31; Status DC Sodium Polystyrene Sulfonate (Kayexalate) 30 gm 1X ONCE PO ; Start 05/22/18 at 00:30; Stop 05/22/18 at 00:31 Amlodipine Besylate (Norvasc) 5 mg DAILYWLUN PO ; Start 05/22/18 at 12:00 Aspirin (Ecotrin) 81 mg DAILYWBKFT PO ; Start 05/22/18 at 08:00 Atorvastatin Calcium (Lipitor) 80 mg QHS PO ; Start 05/21/18 at 21:15 Clonidine HCl (Catapres Tts-1) 1 patch WEEKLY TD ; Start 05/28/18 at 09:00 Clopidogrel Bisulfate (Plavix) 75 mg DAILY PO ; Start 05/22/18 at 09:00 Insulin Glargine (Lantus) 7 units QHS SQ ; Start 05/21/18 at 21:15 Insulin Human Lispro (HumaLOG) 10 units TIDWMEALS SQ ; Start 05/22/18 at 08:00 Lisinopril (Prinivil) 20 mg DAILY PO ; Start 05/22/18 at 09:00 Sevelamer Carbonate (Renvela) 800 mg TIDWMEALS PO ; Start 05/21/18 at 21:00 Active Scripts Active Humalog (Insulin Lispro) 100 Unit/1 Ml Insuln.pen 10 Units SQ TIDWMEALS 30 Days Lantus Solostar (Insulin Glargine,Hum.rec.anlog) 100 Unit/1 Ml Insuln.pen 7 Units SQ QHS 30 Days Clonidine Tts-1 (Clonidine) 1 Each Patch.tdwk 1 Patch TD WEEKLY 30 Days Atorvastatin Calcium 40 Mg Tablet 80 Mg PO QHS Amlodipine Besylate 5 Mg Tablet 5 Mg PO DAILYWLUN Clopidogrel (Clopidogrel Bisulfate) 75 Mg Tablet 75 Mg PO DAILY Lisinopril 20 Mg Tablet 1 Tab PO DAILY Aspirin Ec (Aspirin) 81 Mg Tablet. 81 Mg PO DAILYWBKFT Reported Renvela (Sevelamer Carbonate) 800 Mg Tablet 1 Tab PO TID Allergies Allergies: Coded Allergies: No Known Drug Allergies (Unverified , 11/28/17) ROS General: YES: Fatigue, Malaise; No: Chills, Night Sweats, Appetite, Other PSYCHOLOGICAL ROS: No: Anxiety, Behavioral Disorder, Concentration difficultie , Decreased libido, Depression, Disorientation, Hallucinations, Hostility, Irritablity, Memory difficulties, Mood Swings, Obsessive thoughts, Physical abuse, Sexual abuse, Sleep disturbances, Suicidal ideation, Other Eyes: No Blurry vision, No Decreased vision, No Double vision, No Dry eyes, No Excessive tearing, No Eye Pain, No Itchy Eyes, No Loss of vision, No Photophobia , No Scotomata, No Uses contacts, No Uses glasses, No Other Respiratory: YES: Cough, SOB with excertion; No: Hemoptysis, Orthopnea, Pleuritic Pain, Shortness of breath, Sputum Changes, Stridor, Tachypnea, Wheezing, Other Cardiovascular: No Chest Pain, No Palpitations, No Orthopnea, No Paroxysmal Noc. Dyspnea, No Edema, No Lt Headedness, No Other Gastrointestinal: No Nausea, No Vomiting, No Abdominal Pain, No Diarrhea, No Constipation, No Melena, No Hematochezia, No Other Genitourinary: No Dysuria, No Frequency, No Incontinence, No Hematuria, No Retention, No Discharge, No Urgency, No Pain, No Flank Pain, No Other, No , No , No , No , No , No , No Musculoskeletal: Yes Joint Pain Neurological: No Behavorial Changes, No Bowel/Bladder ControlChng, No Confusion , No Dizziness, No Gait Disturbance, No Headaches, No Impaired Coord/balance, No Memory Loss, No Numbness/Tingling, No Seizures, No Speech Problems, No Tremors, No Visual Changes, No Weakness, No Other Skin: Yes Dry Skin; No Eczema, No Hair Changes, No Lumps, No Mole Changes, No Mottling, No Nail Changes, No Pruritus, No Rash, No Skin Lesion Changes, No Other, No Acne Physical Exam General: Alert, Cooperative, No acute distress HEENT: EOMI Lungs: Clear to auscultation Heart: S1S2 Abdomen: Normal bowel sounds, Soft Extremities: No cyanosis, Other (+ le edema) Skin: No rashes Neuro: Normal speech Psych/Mental Status: Mental status NL, Mood NL Vitals Vitals Vital Signs Date Time Temp Pulse Resp B/P (MAP) Pulse Ox O2 Delivery O2 Flow Rate FiO2 05/21/18 18:46 94 Room Air 05/21/18 18:33 68 20 05/21/18 17:25 97.6 97.6 Labs Labs Laboratory Tests Test 05/21/18 17:30 05/21/18 17:40 05/21/18 18:10 White Blood Count 6.2 x10^3/uL (4.0-11.0) Red Blood Count 2.33 x10^6/uL (3.50-5.40) Hemoglobin 7.5 g/dL (12.0-15.5) Hematocrit 22.7 % (36.0-47.0) Mean Corpuscular Volume 97 fL (79-100) Mean Corpuscular Hemoglobin 32 pg (25-35) Mean Corpuscular Hemoglobin Concent 33 g/dL (31-37) Red Cell Distribution Width 13.2 % (11.5-14.5) Platelet Count 175 x10^3/uL (140-400) Neutrophils (%) (Auto) 65 % (31-73) Lymphocytes (%) (Auto) 19 % (24-48) Monocytes (%) (Auto) 9 % (0-9) Eosinophils (%) (Auto) 6 % (0-3) Basophils (%) (Auto) 1 % (0-3) Neutrophils # (Auto) 4.0 x10^3uL (1.8-7.7) Lymphocytes # (Auto) 1.2 x10^3/uL (1.0-4.8) Monocytes # (Auto) 0.6 x10^3/uL (0.0-1.1) Eosinophils # (Auto) 0.4 x10^3/uL (0.0-0.7) Basophils # (Auto) 0.1 x10^3/uL (0.0-0.2) Prothrombin Time 13.7 SEC (11.7-14.0) Prothromb Time International Ratio 1.1 (0.8-1.1) Sodium Level 139 mmol/L (136-145) Potassium Level 6.8 mmol/L (3.5-5.1) Chloride Level 101 mmol/L (98-107) Carbon Dioxide Level 16 mmol/L (21-32) Anion Gap 22 (6-14) Blood Urea Nitrogen 149 mg/dL (7-20) Creatinine 16.5 mg/dL (0.6-1.0) Estimated GFR (Cockcroft-Gault) 2.2 BUN/Creatinine Ratio 9 (6-20) Glucose Level 142 mg/dL (70-99) Lactic Acid Level 1.5 mmol/L (0.4-2.0) Calcium Level 7.3 mg/dL (8.5-10.1) Total Bilirubin 0.3 mg/dL (0.2-1.0) Aspartate Amino Transf (AST/SGOT) 10 U/L (15-37) Alanine Aminotransferase (ALT/SGPT) 14 U/L (14-59) Alkaline Phosphatase 93 U/L (46-116) Troponin I Quantitative < 0.017 ng/mL (0.000-0.055) Total Protein 7.1 g/dL (6.4-8.2) Albumin 3.3 g/dL (3.4-5.0) Albumin/Globulin Ratio 0.9 (1.0-1.7) Urine Collection Type Unknown Urine Color Yellow Urine Clarity Cloudy Urine pH 5.5 Urine Specific [place] 1.015 Urine Protein >=300 mg/dL (NEG-TRACE) Urine Glucose (UA) 100 mg/dL (NEG) Urine Ketones (Stick) Negative mg/dL (NEG) Urine Blood Moderate (NEG) Urine Nitrite Negative (NEG) Urine Bilirubin Negative (NEG) Urine Urobilinogen Dipstick 0.2 mg/dL (0.2 mg/dL) Urine Leukocyte Esterase Small (NEG) Urine RBC 6-10 /HPF (0-2) Urine WBC 1-4 /HPF (0-4) Urine Squamous Epithelial Cells Few /LPF Urine Bacteria 0 /HPF (0-FEW) O2 Saturation 96 % (92-99) Arterial Blood pH 7.26 (7.35-7.45) Arterial Blood pCO2 at Patient Temp 29 mmHg (35-46) Arterial Blood pO2 at Patient Temp 101 mmHg (65-108) Arterial Blood HCO3 12 mmol/L (21-28) Arterial Blood Base Excess -13 mmol/L (-3-3) FiO2 21 Laboratory Tests Test 05/21/18 17:30 05/21/18 17:40 05/21/18 18:10 White Blood Count 6.2 x10^3/uL (4.0-11.0) Red Blood Count 2.33 x10^6/uL (3.50-5.40) Hemoglobin 7.5 g/dL (12.0-15.5) Hematocrit 22.7 % (36.0-47.0) Mean Corpuscular Volume 97 fL (79-100) Mean Corpuscular Hemoglobin 32 pg (25-35) Mean Corpuscular Hemoglobin Concent 33 g/dL (31-37) Red Cell Distribution Width 13.2 % (11.5-14.5) Platelet Count 175 x10^3/uL (140-400) Neutrophils (%) (Auto) 65 % (31-73) Lymphocytes (%) (Auto) 19 % (24-48) Monocytes (%) (Auto) 9 % (0-9) Eosinophils (%) (Auto) 6 % (0-3) Basophils (%) (Auto) 1 % (0-3) Neutrophils # (Auto) 4.0 x10^3uL (1.8-7.7) Lymphocytes # (Auto) 1.2 x10^3/uL (1.0-4.8) Monocytes # (Auto) 0.6 x10^3/uL (0.0-1.1) Eosinophils # (Auto) 0.4 x10^3/uL (0.0-0.7) Basophils # (Auto) 0.1 x10^3/uL (0.0-0.2) Prothrombin Time 13.7 SEC (11.7-14.0) Prothromb Time International Ratio 1.1 (0.8-1.1) Sodium Level 139 mmol/L (136-145) Potassium Level 6.8 mmol/L (3.5-5.1) Chloride Level 101 mmol/L (98-107) Carbon Dioxide Level 16 mmol/L (21-32) Anion Gap 22 (6-14) Blood Urea Nitrogen 149 mg/dL (7-20) Creatinine 16.5 mg/dL (0.6-1.0) Estimated GFR (Cockcroft-Gault) 2.2 BUN/Creatinine Ratio 9 (6-20) Glucose Level 142 mg/dL (70-99) Lactic Acid Level 1.5 mmol/L (0.4-2.0) Calcium Level 7.3 mg/dL (8.5-10.1) Total Bilirubin 0.3 mg/dL (0.2-1.0) Aspartate Amino Transf (AST/SGOT) 10 U/L (15-37) Alanine Aminotransferase (ALT/SGPT) 14 U/L (14-59) Alkaline Phosphatase 93 U/L (46-116) Troponin I Quantitative < 0.017 ng/mL (0.000-0.055) Total Protein 7.1 g/dL (6.4-8.2) Albumin 3.3 g/dL (3.4-5.0) Albumin/Globulin Ratio 0.9 (1.0-1.7) Urine Collection Type Unknown Urine Color Yellow Urine Clarity Cloudy Urine pH 5.5 Urine Specific [place] 1.015 Urine Protein >=300 mg/dL (NEG-TRACE) Urine Glucose (UA) 100 mg/dL (NEG) Urine Ketones (Stick) Negative mg/dL (NEG) Urine Blood Moderate (NEG) Urine Nitrite Negative (NEG) Urine Bilirubin Negative (NEG) Urine Urobilinogen Dipstick 0.2 mg/dL (0.2 mg/dL) Urine Leukocyte Esterase Small (NEG) Urine RBC 6-10 /HPF (0-2) Urine WBC 1-4 /HPF (0-4) Urine Squamous Epithelial Cells Few /LPF Urine Bacteria 0 /HPF (0-FEW) O2 Saturation 96 % (92-99) Arterial Blood pH 7.26 (7.35-7.45) Arterial Blood pCO2 at Patient Temp 29 mmHg (35-46) Arterial Blood pO2 at Patient Temp 101 mmHg (65-108) Arterial Blood HCO3 12 mmol/L (21-28) Arterial Blood Base Excess -13 mmol/L (-3-3) FiO2 21 VTE Prophylaxis Ordered VTE Prophylaxis Devices: No VTE Pharmacological Prophylaxi: Yes Assessment/Plan Assessment/Plan acute diastolic CHF, fluid overload from missing dialysis ESRD, poor compliance she reports that her HD cath doesnt work, serious hyperkalemia meds given in ER, should correct, HD in AM obesity Dm2 htn anemia of CKD admit RUSH REYES MD May 21, 2018 21:53
[2018-05-21] MEDS ORDERED: ONDANSETRON ODT 4 MG TAB.RAPDIS. PO PRN (22:00)
[2018-05-21] MEDS: SEVELAMER CARBONATE 800 MG TABLET. PO SCH (22:05)
[2018-05-21] MEDS ORDERED: LABETALOL 20 MG/4 ML DISP.SYRIN. IVP PRN (22:30)
[2018-05-21 22:41] VITALS: BP 164/53
[2018-05-22] MEDS ORDERED: SODIUM POLYSTYRENE SULFONATE 15 GM/60 ML ORAL.SUSP. PO ONE (00:30)
--- NOTE | 2018-05-22 02:35 | RAD ---
PA and lateral chest x-ray COMPARISON: Chest x-ray March 29, 2018. HISTORY: Delayed hemodialysis. FINDINGS: Right jugular dual-lumen dialysis catheter tip projects region of the distal SVC. There is mild buckling of the tip of the catheter although this is similar the prior exam. Cardiomegaly stable. Aortic arch calcified plaque. No pneumothorax, pulmonary opacities or pleural effusions. There are mild coarse interstitial markings at the lower lobes likely mild edema. Bones are unremarkable. IMPRESSION: Cardiomegaly stable. Mild lower lobe pulmonary interstitial edema is present. Electronically signed by: Calin Nuñez MD (05/22/2018 2:31 AM) [id number]
[2018-05-22 03:11] VITALS: BP 158/58
[2018-05-22 07:00] VITALS: BP 155/57
[2018-05-22 07:09] LABS: BASO # 0.1 x10^3/uL (0.0-0.2); BASO % 1 % (0-3); EOS # 0.3 x10^3/uL (0.0-0.7); EOS % 3 % (0-3); HEMOGLOBIN 7.4 g/dL (12.0-15.5); LYMPH # 0.8 x10^3/uL (1.0-4.8); LYMPH % 10 % (24-48); MEAN CORPUSCULAR HEMOGLOBIN 31 pg (25-35); MEAN CORPUSCULAR HGB CONC 32 g/dL (31-37); MEAN CORPUSCULAR VOLUME 97 fL (79-100); MONO # 0.6 x10^3/uL (0.0-1.1); MONO % 8 % (0-9); NEUT # 6.5 x10^3uL (1.8-7.7); NEUT % 79 % (31-73); PLATELET COUNT 177 x10^3/uL (140-400); RED BLOOD COUNT 2.38 x10^6/uL (3.50-5.40); RED CELL DISTRIBUTION WIDTH 13.1 % (11.5-14.5); WHITE BLOOD COUNT 8.2 x10^3/uL (4.0-11.0)
--- NOTE | 2018-05-22 07:34 | EKG ---
[facility] [address] [place] [id number] Test Date: 2018-05-21 Test Time: 17:28:25 Pat Name: JORDY Godoypartment: Room: [facility] Gender: F Tipple Boss: : 1955 Requested By: NICHO NOE Order Number: [id number] Reading MD: Frederick Combs Measurements Intervals [place] Rate: 68 P: 29 AR: 190 QRS: -6 QRSD: 96 T: 71 QT: 438 QTc: 471 Interpretive Statements SINUS RHYTHM LEFTWARD AXIS T ABNORMALITY IN HIGH LATERAL LEADS ABNORMAL ECG Electronically Signed On 05-25-2018 10:02:11 [employer] by Frederick Combs
[2018-05-22 07:46] LABS: ALBUMIN 3.4 g/dL (3.4-5.0); ALBUMIN/GLOBULIN RATIO 0.8 (1.0-1.7); CALCIUM 7.4 mg/dL (8.5-10.1); CREATININE 16.7 mg/dL (0.6-1.0); GFR 2.2; MAGNESIUM 2.5 mg/dL (1.8-2.4); POTASSIUM 5.7 mmol/L (3.5-5.1); TOTAL BILIRUBIN 0.3 mg/dL (0.2-1.0); TOTAL PROTEIN 7.8 g/dL (6.4-8.2)
[2018-05-22] MEDS: INSULIN LISPRO 300 UNITS/3 ML INSULN.PEN. SQ SCH ×2 (08:00→12:00)
[2018-05-22] MEDS ORDERED: ASPIRIN ENTERIC COATED 81 MG TABLET.DR. PO SCH (08:00)
[2018-05-22] MEDS: SEVELAMER CARBONATE 800 MG TABLET. PO SCH ×2 (08:00→14:08)
[2018-05-22] MEDS ORDERED: CLOPIDOGREL BISULFATE 75 MG TABLET PO SCH (09:00)
[2018-05-22] MEDS ORDERED: LISINOPRIL 20 MG TABLET PO SCH (09:00)
[2018-05-22] MEDS ORDERED: cloNIDine TTS-1 1 PATCH PATCH.TDWK TD SCH (09:00)
[2018-05-22] MEDS ORDERED: DIALYSIS PATIENT. MC PRN ×2 (09:15)
[2018-05-22] MEDS ORDERED: IV NORMAL SALINE 1000ML BAG 1,000 ML IV PRN ×2 (09:30)
[2018-05-22] MEDS ORDERED: ALTEPLASE 1MG SYRINGE. INT CAT ONE ×2 (11:00→11:15)
--- NOTE | 2018-05-22 11:58 | PDOC ---
PROGRESS NOTES Chief Complaint Chief Complaint Nausea, vomiting, hyperkalemia History of Present Illness History of Present Illness Patient was seen and examined this morning in the dialysis room. She is doing well, and we hope to possibly discharge her today following dialysis. She had reporting that her cath was not working properly, but it was working properly today with no indications that is has any issues. Vitals Vitals Vital Signs Date Time Temp Pulse Resp B/P (MAP) Pulse Ox O2 Delivery O2 Flow Rate FiO2 05/22/18 08:00 Room Air 05/22/18 07:00 97.8 75 18 155/57 (89) 94 97.8 Physical Exam General: Alert, Cooperative, No acute distress Heart: Regular rate Lungs: Clear, Other Abdomen: Normal bowel sounds, Soft Extremities: No cyanosis, Other (+ le edema) Skin: No rashes Labs LABS Laboratory Tests Test 05/21/18 17:30 05/21/18 17:40 05/21/18 18:10 05/22/18 00:47 White Blood Count 6.2 x10^3/uL (4.0-11.0) Red Blood Count 2.33 x10^6/uL (3.50-5.40) Hemoglobin 7.5 g/dL (12.0-15.5) Hematocrit 22.7 % (36.0-47.0) Mean Corpuscular Volume 97 fL (79-100) Mean Corpuscular Hemoglobin 32 pg (25-35) Mean Corpuscular Hemoglobin Concent 33 g/dL (31-37) Red Cell Distribution Width 13.2 % (11.5-14.5) Platelet Count 175 x10^3/uL (140-400) Neutrophils (%) (Auto) 65 % (31-73) Lymphocytes (%) (Auto) 19 % (24-48) Monocytes (%) (Auto) 9 % (0-9) Eosinophils (%) (Auto) 6 % (0-3) Basophils (%) (Auto) 1 % (0-3) Neutrophils # (Auto) 4.0 x10^3uL (1.8-7.7) Lymphocytes # (Auto) 1.2 x10^3/uL (1.0-4.8) Monocytes # (Auto) 0.6 x10^3/uL (0.0-1.1) Eosinophils # (Auto) 0.4 x10^3/uL (0.0-0.7) Basophils # (Auto) 0.1 x10^3/uL (0.0-0.2) Prothrombin Time 13.7 SEC (11.7-14.0) Prothromb Time International Ratio 1.1 (0.8-1.1) Sodium Level 139 mmol/L (136-145) Potassium Level 6.8 mmol/L (3.5-5.1) Chloride Level 101 mmol/L (98-107) Carbon Dioxide Level 16 mmol/L (21-32) Anion Gap 22 (6-14) Blood Urea Nitrogen 149 mg/dL (7-20) Creatinine 16.5 mg/dL (0.6-1.0) Estimated GFR (Cockcroft-Gault) 2.2 BUN/Creatinine Ratio 9 (6-20) Glucose Level 142 mg/dL (70-99) Lactic Acid Level 1.5 mmol/L (0.4-2.0) Calcium Level 7.3 mg/dL (8.5-10.1) Total Bilirubin 0.3 mg/dL (0.2-1.0) Aspartate Amino Transf (AST/SGOT) 10 U/L (15-37) Alanine Aminotransferase (ALT/SGPT) 14 U/L (14-59) Alkaline Phosphatase 93 U/L (46-116) Troponin I Quantitative < 0.017 ng/mL (0.000-0.055) Total Protein 7.1 g/dL (6.4-8.2) Albumin 3.3 g/dL (3.4-5.0) Albumin/Globulin Ratio 0.9 (1.0-1.7) Urine Collection Type Unknown Urine Color Yellow Urine Clarity Cloudy Urine pH 5.5 Urine Specific [place] 1.015 Urine Protein >=300 mg/dL (NEG-TRACE) Urine Glucose (UA) 100 mg/dL (NEG) Urine Ketones (Stick) Negative mg/dL (NEG) Urine Blood Moderate (NEG) Urine Nitrite Negative (NEG) Urine Bilirubin Negative (NEG) Urine Urobilinogen Dipstick 0.2 mg/dL (0.2 mg/dL) Urine Leukocyte Esterase Small (NEG) Urine RBC 6-10 /HPF (0-2) Urine WBC 1-4 /HPF (0-4) Urine Squamous Epithelial Cells Few /LPF Urine Bacteria 0 /HPF (0-FEW) O2 Saturation 96 % (92-99) Arterial Blood pH 7.26 (7.35-7.45) Arterial Blood pCO2 at Patient Temp 29 mmHg (35-46) Arterial Blood pO2 at Patient Temp 101 mmHg (65-108) Arterial Blood HCO3 12 mmol/L (21-28) Arterial Blood Base Excess -13 mmol/L (-3-3) FiO2 21 Glucose (Fingerstick) 143 mg/dL (70-99) Test 05/22/18 06:35 05/22/18 09:11 White Blood Count 8.2 x10^3/uL (4.0-11.0) Red Blood Count 2.38 x10^6/uL (3.50-5.40) Hemoglobin 7.4 g/dL (12.0-15.5) Hematocrit 23.0 % (36.0-47.0) Mean Corpuscular Volume 97 fL (79-100) Mean Corpuscular Hemoglobin 31 pg (25-35) Mean Corpuscular Hemoglobin Concent 32 g/dL (31-37) Red Cell Distribution Width 13.1 % (11.5-14.5) Platelet Count 177 x10^3/uL (140-400) Neutrophils (%) (Auto) 79 % (31-73) Lymphocytes (%) (Auto) 10 % (24-48) Monocytes (%) (Auto) 8 % (0-9) Eosinophils (%) (Auto) 3 % (0-3) Basophils (%) (Auto) 1 % (0-3) Neutrophils # (Auto) 6.5 x10^3uL (1.8-7.7) Lymphocytes # (Auto) 0.8 x10^3/uL (1.0-4.8) Monocytes # (Auto) 0.6 x10^3/uL (0.0-1.1) Eosinophils # (Auto) 0.3 x10^3/uL (0.0-0.7) Basophils # (Auto) 0.1 x10^3/uL (0.0-0.2) Sodium Level 141 mmol/L (136-145) Potassium Level 5.7 mmol/L (3.5-5.1) Chloride Level 104 mmol/L (98-107) Carbon Dioxide Level 17 mmol/L (21-32) Anion Gap 20 (6-14) Blood Urea Nitrogen 156 mg/dL (7-20) Creatinine 16.7 mg/dL (0.6-1.0) Estimated GFR (Cockcroft-Gault) 2.2 BUN/Creatinine Ratio 9 (6-20) Glucose Level 123 mg/dL (70-99) Calcium Level 7.4 mg/dL (8.5-10.1) Phosphorus Level 9.0 mg/dL (2.6-4.7) Magnesium Level 2.5 mg/dL (1.8-2.4) Total Bilirubin 0.3 mg/dL (0.2-1.0) Aspartate Amino Transf (AST/SGOT) 12 U/L (15-37) Alanine Aminotransferase (ALT/SGPT) 9 U/L (14-59) Alkaline Phosphatase 93 U/L (46-116) Total Protein 7.8 g/dL (6.4-8.2) Albumin 3.4 g/dL (3.4-5.0) Albumin/Globulin Ratio 0.8 (1.0-1.7) Glucose (Fingerstick) 110 mg/dL (70-99) Review of Systems Review of Systems Heart: denies chest pain Lung: denies soa Integument: denies rash Assessment and Plan Assessmemt and Plan Assessment: 1. Hyperkalemia, now resolved 2. Acute diastolic heart failure d/t noncompliance with hemodialysis 3. Fluid overload 4. ESRD 5. DM2 6. HTN 7. Anemia of CKD Plan: 1. Labs 2. Home meds 3. Dialysis 4. Possible discharge following dialysis Comment Review of Relevant I have reviewed the following items fede (where applicable) has been applied. Labs Laboratory Tests Test 05/21/18 17:30 05/21/18 17:40 05/21/18 18:10 05/22/18 00:47 White Blood Count 6.2 x10^3/uL (4.0-11.0) Red Blood Count 2.33 x10^6/uL (3.50-5.40) Hemoglobin 7.5 g/dL (12.0-15.5) Hematocrit 22.7 % (36.0-47.0) Mean Corpuscular Volume 97 fL (79-100) Mean Corpuscular Hemoglobin 32 pg (25-35) Mean Corpuscular Hemoglobin Concent 33 g/dL (31-37) Red Cell Distribution Width 13.2 % (11.5-14.5) Platelet Count 175 x10^3/uL (140-400) Neutrophils (%) (Auto) 65 % (31-73) Lymphocytes (%) (Auto) 19 % (24-48) Monocytes (%) (Auto) 9 % (0-9) Eosinophils (%) (Auto) 6 % (0-3) Basophils (%) (Auto) 1 % (0-3) Neutrophils # (Auto) 4.0 x10^3uL (1.8-7.7) Lymphocytes # (Auto) 1.2 x10^3/uL (1.0-4.8) Monocytes # (Auto) 0.6 x10^3/uL (0.0-1.1) Eosinophils # (Auto) 0.4 x10^3/uL (0.0-0.7) Basophils # (Auto) 0.1 x10^3/uL (0.0-0.2) Prothrombin Time 13.7 SEC (11.7-14.0) Prothromb Time International Ratio 1.1 (0.8-1.1) Sodium Level 139 mmol/L (136-145) Potassium Level 6.8 mmol/L (3.5-5.1) Chloride Level 101 mmol/L (98-107) Carbon Dioxide Level 16 mmol/L (21-32) Anion Gap 22 (6-14) Blood Urea Nitrogen 149 mg/dL (7-20) Creatinine 16.5 mg/dL (0.6-1.0) Estimated GFR (Cockcroft-Gault) 2.2 BUN/Creatinine Ratio 9 (6-20) Glucose Level 142 mg/dL (70-99) Lactic Acid Level 1.5 mmol/L (0.4-2.0) Calcium Level 7.3 mg/dL (8.5-10.1) Total Bilirubin 0.3 mg/dL (0.2-1.0) Aspartate Amino Transf (AST/SGOT) 10 U/L (15-37) Alanine Aminotransferase (ALT/SGPT) 14 U/L (14-59) Alkaline Phosphatase 93 U/L (46-116) Troponin I Quantitative < 0.017 ng/mL (0.000-0.055) Total Protein 7.1 g/dL (6.4-8.2) Albumin 3.3 g/dL (3.4-5.0) Albumin/Globulin Ratio 0.9 (1.0-1.7) Urine Collection Type Unknown Urine Color Yellow Urine Clarity Cloudy Urine pH 5.5 Urine Specific [place] 1.015 Urine Protein >=300 mg/dL (NEG-TRACE) Urine Glucose (UA) 100 mg/dL (NEG) Urine Ketones (Stick) Negative mg/dL (NEG) Urine Blood Moderate (NEG) Urine Nitrite Negative (NEG) Urine Bilirubin Negative (NEG) Urine Urobilinogen Dipstick 0.2 mg/dL (0.2 mg/dL) Urine Leukocyte Esterase Small (NEG) Urine RBC 6-10 /HPF (0-2) Urine WBC 1-4 /HPF (0-4) Urine Squamous Epithelial Cells Few /LPF Urine Bacteria 0 /HPF (0-FEW) O2 Saturation 96 % (92-99) Arterial Blood pH 7.26 (7.35-7.45) Arterial Blood pCO2 at Patient Temp 29 mmHg (35-46) Arterial Blood pO2 at Patient Temp 101 mmHg (65-108) Arterial Blood HCO3 12 mmol/L (21-28) Arterial Blood Base Excess -13 mmol/L (-3-3) FiO2 21 Glucose (Fingerstick) 143 mg/dL (70-99) Test 05/22/18 06:35 05/22/18 09:11 White Blood Count 8.2 x10^3/uL (4.0-11.0) Red Blood Count 2.38 x10^6/uL (3.50-5.40) Hemoglobin 7.4 g/dL (12.0-15.5) Hematocrit 23.0 % (36.0-47.0) Mean Corpuscular Volume 97 fL (79-100) Mean Corpuscular Hemoglobin 31 pg (25-35) Mean Corpuscular Hemoglobin Concent 32 g/dL (31-37) Red Cell Distribution Width 13.1 % (11.5-14.5) Platelet Count 177 x10^3/uL (140-400) Neutrophils (%) (Auto) 79 % (31-73) Lymphocytes (%) (Auto) 10 % (24-48) Monocytes (%) (Auto) 8 % (0-9) Eosinophils (%) (Auto) 3 % (0-3) Basophils (%) (Auto) 1 % (0-3) Neutrophils # (Auto) 6.5 x10^3uL (1.8-7.7) Lymphocytes # (Auto) 0.8 x10^3/uL (1.0-4.8) Monocytes # (Auto) 0.6 x10^3/uL (0.0-1.1) Eosinophils # (Auto) 0.3 x10^3/uL (0.0-0.7) Basophils # (Auto) 0.1 x10^3/uL (0.0-0.2) Sodium Level 141 mmol/L (136-145) Potassium Level 5.7 mmol/L (3.5-5.1) Chloride Level 104 mmol/L (98-107) Carbon Dioxide Level 17 mmol/L (21-32) Anion Gap 20 (6-14) Blood Urea Nitrogen 156 mg/dL (7-20) Creatinine 16.7 mg/dL (0.6-1.0) Estimated GFR (Cockcroft-Gault) 2.2 BUN/Creatinine Ratio 9 (6-20) Glucose Level 123 mg/dL (70-99) Calcium Level 7.4 mg/dL (8.5-10.1) Phosphorus Level 9.0 mg/dL (2.6-4.7) Magnesium Level 2.5 mg/dL (1.8-2.4) Total Bilirubin 0.3 mg/dL (0.2-1.0) Aspartate Amino Transf (AST/SGOT) 12 U/L (15-37) Alanine Aminotransferase (ALT/SGPT) 9 U/L (14-59) Alkaline Phosphatase 93 U/L (46-116) Total Protein 7.8 g/dL (6.4-8.2) Albumin 3.4 g/dL (3.4-5.0) Albumin/Globulin Ratio 0.8 (1.0-1.7) Glucose (Fingerstick) 110 mg/dL (70-99) Laboratory Tests Test 05/21/18 17:30 05/21/18 17:40 05/21/18 18:10 05/22/18 00:47 White Blood Count 6.2 x10^3/uL (4.0-11.0) Red Blood Count 2.33 x10^6/uL (3.50-5.40) Hemoglobin 7.5 g/dL (12.0-15.5) Hematocrit 22.7 % (36.0-47.0) Mean Corpuscular Volume 97 fL (79-100) Mean Corpuscular Hemoglobin 32 pg (25-35) Mean Corpuscular Hemoglobin Concent 33 g/dL (31-37) Red Cell Distribution Width 13.2 % (11.5-14.5) Platelet Count 175 x10^3/uL (140-400) Neutrophils (%) (Auto) 65 % (31-73) Lymphocytes (%) (Auto) 19 % (24-48) Monocytes (%) (Auto) 9 % (0-9) Eosinophils (%) (Auto) 6 % (0-3) Basophils (%) (Auto) 1 % (0-3) Neutrophils # (Auto) 4.0 x10^3uL (1.8-7.7) Lymphocytes # (Auto) 1.2 x10^3/uL (1.0-4.8) Monocytes # (Auto) 0.6 x10^3/uL (0.0-1.1) Eosinophils # (Auto) 0.4 x10^3/uL (0.0-0.7) Basophils # (Auto) 0.1 x10^3/uL (0.0-0.2) Prothrombin Time 13.7 SEC (11.7-14.0) Prothromb Time International Ratio 1.1 (0.8-1.1) Sodium Level 139 mmol/L (136-145) Potassium Level 6.8 mmol/L (3.5-5.1) Chloride Level 101 mmol/L (98-107) Carbon Dioxide Level 16 mmol/L (21-32) Anion Gap 22 (6-14) Blood Urea Nitrogen 149 mg/dL (7-20) Creatinine 16.5 mg/dL (0.6-1.0) Estimated GFR (Cockcroft-Gault) 2.2 BUN/Creatinine Ratio 9 (6-20) Glucose Level 142 mg/dL (70-99) Lactic Acid Level 1.5 mmol/L (0.4-2.0) Calcium Level 7.3 mg/dL (8.5-10.1) Total Bilirubin 0.3 mg/dL (0.2-1.0) Aspartate Amino Transf (AST/SGOT) 10 U/L (15-37) Alanine Aminotransferase (ALT/SGPT) 14 U/L (14-59) Alkaline Phosphatase 93 U/L (46-116) Troponin I Quantitative < 0.017 ng/mL (0.000-0.055) Total Protein 7.1 g/dL (6.4-8.2) Albumin 3.3 g/dL (3.4-5.0) Albumin/Globulin Ratio 0.9 (1.0-1.7) Urine Collection Type Unknown Urine Color Yellow Urine Clarity Cloudy Urine pH 5.5 Urine Specific [place] 1.015 Urine Protein >=300 mg/dL (NEG-TRACE) Urine Glucose (UA) 100 mg/dL (NEG) Urine Ketones (Stick) Negative mg/dL (NEG) Urine Blood Moderate (NEG) Urine Nitrite Negative (NEG) Urine Bilirubin Negative (NEG) Urine Urobilinogen Dipstick 0.2 mg/dL (0.2 mg/dL) Urine Leukocyte Esterase Small (NEG) Urine RBC 6-10 /HPF (0-2) Urine WBC 1-4 /HPF (0-4) Urine Squamous Epithelial Cells Few /LPF Urine Bacteria 0 /HPF (0-FEW) O2 Saturation 96 % (92-99) Arterial Blood pH 7.26 (7.35-7.45) Arterial Blood pCO2 at Patient Temp 29 mmHg (35-46) Arterial Blood pO2 at Patient Temp 101 mmHg (65-108) Arterial Blood HCO3 12 mmol/L (21-28) Arterial Blood Base Excess -13 mmol/L (-3-3) FiO2 21 Glucose (Fingerstick) 143 mg/dL (70-99) Test 05/22/18 06:35 05/22/18 09:11 White Blood Count 8.2 x10^3/uL (4.0-11.0) Red Blood Count 2.38 x10^6/uL (3.50-5.40) Hemoglobin 7.4 g/dL (12.0-15.5) Hematocrit 23.0 % (36.0-47.0) Mean Corpuscular Volume 97 fL (79-100) Mean Corpuscular Hemoglobin 31 pg (25-35) Mean Corpuscular Hemoglobin Concent 32 g/dL (31-37) Red Cell Distribution Width 13.1 % (11.5-14.5) Platelet Count 177 x10^3/uL (140-400) Neutrophils (%) (Auto) 79 % (31-73) Lymphocytes (%) (Auto) 10 % (24-48) Monocytes (%) (Auto) 8 % (0-9) Eosinophils (%) (Auto) 3 % (0-3) Basophils (%) (Auto) 1 % (0-3) Neutrophils # (Auto) 6.5 x10^3uL (1.8-7.7) Lymphocytes # (Auto) 0.8 x10^3/uL (1.0-4.8) Monocytes # (Auto) 0.6 x10^3/uL (0.0-1.1) Eosinophils # (Auto) 0.3 x10^3/uL (0.0-0.7) Basophils # (Auto) 0.1 x10^3/uL (0.0-0.2) Sodium Level 141 mmol/L (136-145) Potassium Level 5.7 mmol/L (3.5-5.1) Chloride Level 104 mmol/L (98-107) Carbon Dioxide Level 17 mmol/L (21-32) Anion Gap 20 (6-14) Blood Urea Nitrogen 156 mg/dL (7-20) Creatinine 16.7 mg/dL (0.6-1.0) Estimated GFR (Cockcroft-Gault) 2.2 BUN/Creatinine Ratio 9 (6-20) Glucose Level 123 mg/dL (70-99) Calcium Level 7.4 mg/dL (8.5-10.1) Phosphorus Level 9.0 mg/dL (2.6-4.7) Magnesium Level 2.5 mg/dL (1.8-2.4) Total Bilirubin 0.3 mg/dL (0.2-1.0) Aspartate Amino Transf (AST/SGOT) 12 U/L (15-37) Alanine Aminotransferase (ALT/SGPT) 9 U/L (14-59) Alkaline Phosphatase 93 U/L (46-116) Total Protein 7.8 g/dL (6.4-8.2) Albumin 3.4 g/dL (3.4-5.0) Albumin/Globulin Ratio 0.8 (1.0-1.7) Glucose (Fingerstick) 110 mg/dL (70-99) Medications Current Medications Calcium Gluconate (Calcium Gluconate) 1,000 mg 1X ONCE IVP Last administered on 05/21/18at 18:35; Start 05/21/18 at 18:15; Stop 05/21/18 at 18:18; Status DC Dextrose (Dextrose 50%-Water Syringe) 25 gm 1X ONCE IV Last administered on at 18:45; Start 05/21/18 at 18:15; Stop 05/21/18 at 18:18; Status DC Insulin Human Regular (HumuLIN R VIAL) 10 unit 1X ONCE IV Last administered on 05/21/18at 18:50; Start 05/21/18 at 18:15; Stop 05/21/18 at 18:18; Status DC Albuterol Sulfate (Ventolin Neb Soln) 10 mg 1X ONCE CONT NEB Last administered on 05/21/18at 18:29; Start 05/21/18 at 18:15; Stop 05/21/18 at 18:18 ; Status DC Sodium Polystyrene Sulfonate (Kayexalate) 30 gm 1X ONCE PO Last administered on 05/21/18at 18:51; Start 05/21/18 at 18:30; Stop 05/21/18 at 18:31; Status DC Sodium Polystyrene Sulfonate (Kayexalate) 30 gm 1X ONCE PO Last administered on 05/22/18at 00:46; Start 05/22/18 at 00:30; Stop 05/22/18 at 00:31; Status DC Amlodipine Besylate (Norvasc) 5 mg DAILYWLUN PO ; Start 05/22/18 at 12:00 Aspirin (Ecotrin) 81 mg DAILYWBKFT PO ; Start 05/22/18 at 08:00 Atorvastatin Calcium (Lipitor) 80 mg QHS PO Last administered on 05/21/18at 22: 06; Start 05/21/18 at 21:15 Clonidine HCl (Catapres Tts-1) 1 patch WEEKLY TD ; Start 05/28/18 at 09:00; Stop 05/28/18 at 09:00; Status DC Clopidogrel Bisulfate (Plavix) 75 mg DAILY PO ; Start 05/22/18 at 09:00 Insulin Glargine (Lantus) 7 units QHS SQ ; Start 05/21/18 at 21:15 Insulin Human Lispro (HumaLOG) 10 units TIDWMEALS SQ ; Start 05/22/18 at 08:00 Lisinopril (Prinivil) 20 mg DAILY PO ; Start 05/22/18 at 09:00 Sevelamer Carbonate (Renvela) 800 mg TIDWMEALS PO ; Start 05/21/18 at 21:00 Ondansetron HCl (Zofran Odt) 4 mg PRN Q6HRS PRN PO NAUSEA/VOMITING; Start 05/21 at 22:00 Labetalol HCl (Normodyne Iv Push) 20 mg PRN Q2HR PRN IVP HYPERTENSION, SEE COMMENTS Last administered on 05/21/18at 22:42; Start 05/21/18 at 22:30 Clonidine HCl (Catapres Tts-1) 1 patch WEEKLY TD ; Start 05/22/18 at 09:00 Sodium Chloride 1,000 ml @ 1,000 mls/hr Q1H PRN IV hypotension; Start 05/22/18 at 09:30; Stop 05/22/18 at 15:30 Sodium Chloride 1,000 ml @ 400 mls/hr Q2H30M PRN IV PATENCY; Start 05/22/18 at 09:30; Stop 05/22/18 at 15:30 Info (PHARMACY MONITORING -- do not chart) 1 each PRN DAILY PRN MC SEE COMMENTS ; Start 05/22/18 at 09:15; Status UNV Info (PHARMACY MONITORING -- do not chart) 1 each PRN DAILY PRN MC SEE COMMENTS ; Start 05/22/18 at 09:15 Alteplase, Recombinant (Cathflo For Central Catheter Clearance) 1 mg 1X ONCE INT CAT ; Start 05/22/18 at 11:00; Stop 05/22/18 at 11:04; Status DC Alteplase, Recombinant (Cathflo For Central Catheter Clearance) 1 mg 1X ONCE INT CAT ; Start 05/22/18 at 11:15; Stop 05/22/18 at 11:16; Status DC Active Scripts Active Humalog (Insulin Lispro) 100 Unit/1 Ml Insuln.pen 10 Units SQ TIDWMEALS 30 Days Lantus Solostar (Insulin Glargine,Hum.rec.anlog) 100 Unit/1 Ml Insuln.pen 7 Units SQ QHS 30 Days Clonidine Tts-1 (Clonidine) 1 Each Patch.tdwk 1 Patch TD WEEKLY 30 Days Atorvastatin Calcium 40 Mg Tablet 80 Mg PO QHS Amlodipine Besylate 5 Mg Tablet 5 Mg PO DAILYWLUN Clopidogrel (Clopidogrel Bisulfate) 75 Mg Tablet 75 Mg PO DAILY Lisinopril 20 Mg Tablet 1 Tab PO DAILY Aspirin Ec (Aspirin) 81 Mg Tablet.dr 81 Mg PO DAILYWBKFT Reported Renvela (Sevelamer Carbonate) 800 Mg Tablet 1 Tab PO TID Vitals/I & O Vital Sign - Last 24 Hours 05/21/18 05/21/18 05/21/18 05/21/18 17:25 18:33 18:46 20:30 Temp 97.6 97.6 Pulse 71 68 Resp 20 20 B/P (MAP) 191/78 (115) Pulse Ox 97 95 94 O2 Delivery Room Air Aerosol Mask Room Air Room Air 05/21/18 05/21/18 05/22/18 05/22/18 22:41 22:42 03:11 07:00 Temp 97.4 97.7 97.8 97.4 97.7 97.8 Pulse 69 67 71 75 Resp 20 20 18 B/P (MAP) 164/53 (90) 164/53 158/58 (91) 155/57 (89) Pulse Ox 96 96 94 O2 Delivery Room Air Room Air Room Air 05/22/18 08:00 O2 Delivery Room Air FINN PEARL III DO May 22, 2018 11:58
[2018-05-22] MEDS ORDERED: amLODIPine BESYLATE 5 MG TABLET PO SCH (12:00)
[2018-05-22 15:19] VITALS: BP 221/75
--- NOTE | 2018-05-22 15:43 | NUR ---
Patient discharged to home. Discharge instructions, medications and follow up appointments discussed with patients daughter. Daughter verbalized understanding. Discharge papers given to patient. Prescriptions called in by Dr. Mayo. IV discontinued. Patient assisted out in wheelchair by staff at this time.
[2018-05-28] MEDS ORDERED: cloNIDine TTS-1 1 PATCH PATCH.TDWK TD SCH (09:00)
[2018-06-09] MEDS ORDERED: LEVO500T59 PO (11:43)
[2018-08-09] MEDS ORDERED: HYDR-2869 PO (13:08)
[2018-11-03] MEDS ORDERED: FURO40TA4 PO (20:19)
[2018-11-03] MEDS ORDERED: INSU100C4 SQ (20:19)
[2018-11-04] MEDS ORDERED: LISI-334 PO (13:29)
[2018-11-04] MEDS ORDERED: INSU100C4 SQ (13:29)
[2018-11-04] MEDS ORDERED: INSU100I13 SQ (13:29)
[2018-11-04] MEDS ORDERED: ASPI-612 PO (13:29)
[2018-11-04] MEDS ORDERED: ATOR40TA59 PO (13:29)
[2018-11-04] MEDS ORDERED: HYDR-2869 PO (13:29)
[2018-11-04] MEDS ORDERED: CLOP75TA PO (13:29)
[2018-11-04] MEDS ORDERED: FURO40TA4 PO (13:29)
[2018-11-04] MEDS ORDERED: ISOS30TA4 PO (13:29)
[2018-11-04] MEDS ORDERED: CARV25TA2 PO (13:29)
[2018-11-04] MEDS ORDERED: AMLO5TAB10 PO (13:29)
[2018-11-04] MEDS ORDERED: ALBU2.5V8 INH (13:31)
== END 2018-05-22 15:46 | disposition home or self-care (01) | DRG 291 ==
LOC: ER 17:03 → 5 NORTH 18:18
PROVIDERS: ADMIT Internal Medicine; ATTEND Internal Medicine
PROC: 5A1D70Z Performance of Urinary Filtration, Intermittent, Less than 6 Hours Per Day (ICD-10-PCS; principal; 2018-05-22)
DX: I13.2 Hypertensive heart and chronic kidney disease with heart failure and with stage 5 chronic kidney disease, or end stage renal disease (principal); N18.6 End stage renal disease; I50.31 Acute diastolic (congestive) heart failure; E87.5 Hyperkalemia; D63.1 Anemia in chronic kidney disease; E11.22 Type 2 diabetes mellitus with diabetic chronic kidney disease; E66.9 Obesity, unspecified; E78.00 Pure hypercholesterolemia, unspecified; E78.5 Hyperlipidemia, unspecified; I25.10 Atherosclerotic heart disease of native coronary artery without angina pectoris; K21.9 Gastro-esophageal reflux disease without esophagitis; Z83.3 Family history of diabetes mellitus; Z91.15 Patient's noncompliance with renal dialysis; Z68.31 Body mass index [BMI] 31.0-31.9, adult; Z79.899 Other long term (current) drug therapy
CPT/HCPCS: 36415; 36600; 71046; 80053; 81001; 82805; 82962; 83036; 83605; 83735; 84100; 84484; 85025; 85610; 86706; 87086; 87340; 93005; 94644; 96374; 96375; J0610; J1815; J3490; J7042; J7613; 99285-25; G0378

== ENCOUNTER 2018-06-14 13:51 | Inpatient (IN) | payer OTHER ==
[~2018-06-14] VITALS: Ht 152.4 cm; Wt 75.7 kg
[~2018-06-14 13:51] MED LIST changes: +LEVO500T59 PO; +SEVE800T9 PO
[2018-06-14] MEDS ORDERED: IPRATRPIUM/ALBUTEROL 0.5/2.5MG 3 ML NEBU. NEB ONE (14:00)
[2018-06-14 14:14] LABS: BASE EXCESS ABG -12 mmol/L (-3-3); HCO3 ABG 14 mmol/L (21-28); PCO2 ABG 33 mmHg (35-46); PO2 ABG 96 mmHg (65-108); SAT O2 ABG 95 % (92-99)
--- NOTE | 2018-06-14 14:29 | RAD ---
Portable chest, 06/14/2018: HISTORY: Dyspnea Comparison is made to a study from 06/07/2018. A right jugular dialysis type catheter remains in place extending to the level the atriocaval junction. The heart is enlarged. Mild perihilar infiltrates have developed with loss of vascular margination. The findings suggest pulmonary edema. Blunting of the left lateral costophrenic angle suggests a small amount of left-sided pleural fluid. IMPRESSION: Mild parahilar-perivascular pulmonary edema Electronically signed by: Mikel Hinkle MD (06/14/2018 2:26 PM) [facility]
[2018-06-14 14:35] LABS: CALCIUM 7.4 mg/dL (8.5-10.1); CREATININE 10.7 mg/dL (0.6-1.0); GFR 3.7; POTASSIUM 5.2 mmol/L (3.5-5.1)
[2018-06-14 14:37] LABS: BASO # 0.1 x10^3/uL (0.0-0.2); BASO % 1 % (0-3); EOS # 0.4 x10^3/uL (0.0-0.7); EOS % 3 % (0-3); HEMATOCRIT 21.7 % (36.0-47.0); LYMPH # 1.8 x10^3/uL (1.0-4.8); LYMPH % 17 % (24-48); MEAN CORPUSCULAR HEMOGLOBIN 32 pg (25-35); MEAN CORPUSCULAR HGB CONC 32 g/dL (31-37); MEAN CORPUSCULAR VOLUME 99 fL (79-100); MONO # 0.9 x10^3/uL (0.0-1.1); MONO % 8 % (0-9); NEUT # 7.8 x10^3uL (1.8-7.7); NEUT % 71 % (31-73); PLATELET COUNT 230 x10^3/uL (140-400); WHITE BLOOD COUNT 10.9 x10^3/uL (4.0-11.0)
[2018-06-14 14:41] LABS: FIO2 ABG 32
[2018-06-14 14:41] LABS: ALBUMIN 3.3 g/dL (3.4-5.0); ALBUMIN/GLOBULIN RATIO 0.7 (1.0-1.7); TOTAL BILIRUBIN 0.4 mg/dL (0.2-1.0); TOTAL PROTEIN 7.8 g/dL (6.4-8.2)
[2018-06-14] MEDS ORDERED: FUROSEMIDE 40 MG/4 ML VIAL. IVP ONE (15:00)
[2018-06-14 15:44] LABS: % BASOS 1 % (0-3); % EOS 5 % (0-5); % LYMPHS 12 % (24-48); % MONOS 11 % (0-10); PLT ESTIMATE ADEQUATE (ADEQUATE)
[2018-06-14 15:45] LABS: % SEGS 71 % (35-66)
[2018-06-14] MEDS ORDERED: INSULIN REGULAR 100 UNIT/ML 3ML VIAL. IV ONE (16:00)
--- NOTE | 2018-06-14 16:10 | EKG ---
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
[2018-06-14 16:21] LABS: INFLUENZA A PATIENT NEGATIVE (NEGATIVE); INFLUENZA B PATIENT NEGATIVE (NEGATIVE)
--- NOTE | 2018-06-14 16:37 | PDOC1 ---
History and Physical Date of Admission Date of Admission DATE: 06/14/18 TIME: 16:36 Identification/Chief Complaint Chief Complaint Shortness of breath Source Source: Caregiver, Chart review, Patient History of Present Illness History of Present Illness Ms. Varela is a 63 old Maori-speaking female known to us w/ PMHx ESRD Tuesday and missed one and half weeks worth of dialysis, last dialysis was here in the hospital. She has been short of breath, O2 saturations in the 70s per EMS Came in hypoxic and we have placed her on BIPAP 12/5 40% FiO2. Lactate 7.4. Hb 7. pH 7.25 on ABG with PCO2 33. Prognosis is poor because of noncompliance. Daughter always at bedside and have explained multiple times regarding her situation, they do not wish to use the head bellhop captain phone and have requested mohawk speaking staff. Admitted to [facility] on BIPAP Past Medical History Cardiovascular: CAD, CHF, HTN, Hyperlipidemia Pulmonary: No pertinent hx, Other CENTRAL NERVOUS SYSTEM: Other GI: GERD Heme/Onc: No pertinent hx Hepatobiliary: No pertinent hx Psych: No pertinent hx Rheumatologic: No pertinent hx Infectious disease: No pertinent hx Renal/: Chronic renal failure Endocrine: Diabetes Past Surgical History Past Surgical History: Other Family History Family History: Diabetes, Heart Disease Social History ALCOHOL: none Drugs: None Current Medications Current Medications Current Medications Albuterol/ Ipratropium (Duoneb) 3 ml 1X ONCE NEB Last administered on at 14:10; Start 06/14/18 at 14:00; Stop 06/14/18 at 14:02; Status DC Furosemide (Lasix) 60 mg 1X ONCE IVP Last administered on 06/14/18at 15:14; Start 06/14/18 at 15:00; Stop 06/14/18 at 15:01; Status DC Insulin Human Regular (HumuLIN R VIAL) 10 unit 1X ONCE IV ; Start 06/14/18 at 16:00; Stop 06/14/18 at 16:04; Status DC Active Scripts Active Levaquin (Levofloxacin) 500 Mg Tablet 500 Mg PO Q48H MDD 1 7 Days Humalog (Insulin Lispro) 100 Unit/1 Ml Insuln.pen 10 Units SQ TIDWMEALS 30 Days Lantus Solostar (Insulin Glargine,Hum.rec.anlog) 100 Unit/1 Ml Insuln.pen 7 Units SQ QHS 30 Days Clonidine Tts-1 (Clonidine) 1 Each Patch.tdwk 1 Patch TD WEEKLY 30 Days Atorvastatin Calcium 40 Mg Tablet 80 Mg PO QHS Amlodipine Besylate 5 Mg Tablet 5 Mg PO DAILYWLUN Clopidogrel (Clopidogrel Bisulfate) 75 Mg Tablet 75 Mg PO DAILY Lisinopril 20 Mg Tablet 1 Tab PO DAILY Aspirin Ec (Aspirin) 81 Mg Tablet.dr 81 Mg PO DAILYWBKFT Reported Renvela (Sevelamer Carbonate) 800 Mg Tablet 1 Tab PO TID Allergies Allergies: Coded Allergies: No Known Drug Allergies (Unverified , 11/28/17) ROS General: YES: Fatigue, Malaise; No: Chills, Night Sweats, Appetite, Other PSYCHOLOGICAL ROS: YES: Anxiety, Depression; No: Behavioral Disorder, Concentration difficultie, Decreased libido, Disorientation, Hallucinations, Hostility, Irritablity, Memory difficulties, Mood Swings, Obsessive thoughts, Physical abuse, Sexual abuse, Sleep disturbances, Suicidal ideation, Other Eyes: No Blurry vision, No Decreased vision, No Double vision, No Dry eyes, No Excessive tearing, No Eye Pain, No Itchy Eyes, No Loss of vision, No Photophobia , No Scotomata, No Uses contacts, No Uses glasses, No Other HEENT: No: Heacaches, Visual Changes, Hearing change, Nasal congestion, Nasal discharge, Oral lesions, Sinus pain, Sore Throat, Epistaxis, Sneezing, Snoring, Tinnitus, Vertigo, Vocal changes, Other ALLERGY AND IMMUNOLOGY: No: Hives, Insect Bite Sensitivity, Itchy/Watery Eyes, Nasal Congestion, Post Nasal Drip, Seasonal Allergies, Other Hematological and Lymphatic: No: Bleeding Problems, Blood Clots, Blood Transfusions, Brusing, Night Sweats, Pallor, Swollen Lymph Nodes, Other ENDOCRINE: No: Breast Changes, Galactorrhea, Hair Pattern Changes, Hot Flashes , Malaise/lethargy, Mood Swings, Palpitations, Polydipsia/polyuria, Skin Changes , Temperature Intolerance, Unexpected Weight Changes, Other Breast: No New/Changing Breast Lumps, No Nipple changes, No Nipple discharge, No Other Respiratory: YES: Cough, Orthopnea, Shortness of breath; No: Hemoptysis, Pleuritic Pain, SOB with excertion, Sputum Changes, Stridor, Tachypnea, Wheezing, Other Cardiovascular: yes Orthopnea, yes Edema; No Chest Pain, No Palpitations, No Paroxysmal Noc. Dyspnea, No Lt Headedness , No Other Gastrointestinal: Yes Nausea; No Vomiting, No Abdominal Pain, No Diarrhea, No Constipation, No Melena, No Hematochezia, No Other Genitourinary: No Dysuria, No Frequency, No Incontinence, No Hematuria, No Retention, No Discharge, No Urgency, No Pain, No Flank Pain, No Other, No , No , No , No , No , No , No Musculoskeletal: No Gait Disturbance, No Joint Pain, No Joint Stiffness, No Joint Swelling, No Muscle Pain, No Muscular Weakness, No Pain In:, No Swelling In:, No Other Neurological: No Behavorial Changes, No Bowel/Bladder ControlChng, No Confusion , No Dizziness, No Gait Disturbance, No Headaches, No Impaired Coord/balance, No Memory Loss, No Numbness/Tingling, No Seizures, No Speech Problems, No Tremors, No Visual Changes, No Weakness, No Other Skin: No Dry Skin, No Eczema, No Hair Changes, No Lumps, No Mole Changes, No Mottling, No Nail Changes, No Pruritus, No Rash, No Skin Lesion Changes, No Other, No Acne Physical Exam General: Alert, Cooperative, moderate distress HEENT: Atraumatic, PERRLA, EOMI, Mucous membr. moist/pink Lungs: Other (Bilateral wheezes) Heart: S1S2, RRR Abdomen: Normal bowel sounds, Soft, No tenderness, No hepatosplenomegaly, No masses Extremities: No clubbing, No cyanosis, Other (1+ edema, abdominal swelling) Neuro: Normal speech, Strength at 5/5 X4 ext, Normal tone, Sensation intact, Cranial nerves 3-12 NL, Reflexes 2+ Psych/Mental Status: Other (Drowsy) Vitals Vitals Vital Signs Date Time Temp Pulse Resp B/P (MAP) Pulse Ox O2 Delivery O2 Flow Rate FiO2 06/14/18 14:06 95 BiPAP/CPAP 06/14/18 14:00 97.9 101 30 143/63 (89) 97.9 Labs Labs Laboratory Tests Test 06/14/18 13:56 06/14/18 14:00 06/14/18 14:05 06/14/18 15:50 Glucose (Fingerstick) 295 mg/dL (70-99) White Blood Count 10.9 x10^3/uL (4.0-11.0) Red Blood Count 2.20 x10^6/uL (3.50-5.40) Hemoglobin 7.0 g/dL (12.0-15.5) Hematocrit 21.7 % (36.0-47.0) Mean Corpuscular Volume 99 fL (79-100) Mean Corpuscular Hemoglobin 32 pg (25-35) Mean Corpuscular Hemoglobin Concent 32 g/dL (31-37) Red Cell Distribution Width 14.0 % (11.5-14.5) Platelet Count 230 x10^3/uL (140-400) Neutrophils (%) (Auto) 71 % (31-73) Lymphocytes (%) (Auto) 17 % (24-48) Monocytes (%) (Auto) 8 % (0-9) Eosinophils (%) (Auto) 3 % (0-3) Basophils (%) (Auto) 1 % (0-3) Neutrophils # (Auto) 7.8 x10^3uL (1.8-7.7) Lymphocytes # (Auto) 1.8 x10^3/uL (1.0-4.8) Monocytes # (Auto) 0.9 x10^3/uL (0.0-1.1) Eosinophils # (Auto) 0.4 x10^3/uL (0.0-0.7) Basophils # (Auto) 0.1 x10^3/uL (0.0-0.2) Segmented Neutrophils % 71 % (35-66) Lymphocytes % 12 % (24-48) Monocytes % 11 % (0-10) Eosinophils % 5 % (0-5) Basophils % 1 % (0-3) Myelocytes % % (0-0) Platelet Estimate Adequate (ADEQUATE) D-Dimer (Bree) 4.95 ug/mlFEU (0.00-0.50) Sodium Level 134 mmol/L (136-145) Potassium Level 5.2 mmol/L (3.5-5.1) Chloride Level 93 mmol/L (98-107) Carbon Dioxide Level 15 mmol/L (21-32) Anion Gap 26 (6-14) Blood Urea Nitrogen 78 mg/dL (7-20) Creatinine 10.7 mg/dL (0.6-1.0) Estimated GFR (Cockcroft-Gault) 3.7 BUN/Creatinine Ratio 7 (6-20) Glucose Level 344 mg/dL (70-99) Lactic Acid Level 7.2 mmol/L (0.4-2.0) Calcium Level 7.4 mg/dL (8.5-10.1) Total Bilirubin 0.4 mg/dL (0.2-1.0) Aspartate Amino Transf (AST/SGOT) 13 U/L (15-37) Alanine Aminotransferase (ALT/SGPT) 11 U/L (14-59) Alkaline Phosphatase 81 U/L (46-116) Troponin I Quantitative < 0.017 ng/mL (0.000-0.055) RC-Icr-H-Type Natriuretic Peptide > 07969 pg/mL (0-124) Total Protein 7.8 g/dL (6.4-8.2) Albumin 3.3 g/dL (3.4-5.0) Albumin/Globulin Ratio 0.7 (1.0-1.7) O2 Saturation 95 % (92-99) Arterial Blood pH 7.25 (7.35-7.45) Arterial Blood pCO2 at Patient Temp 33 mmHg (35-46) Arterial Blood pO2 at Patient Temp 96 mmHg (65-108) Arterial Blood HCO3 14 mmol/L (21-28) Arterial Blood Base Excess -12 mmol/L (-3-3) FiO2 32 Influenza Type A Antigen Negative (NEGATIVE) Influenza Type B Antigen Negative (NEGATIVE) Laboratory Tests Test 06/14/18 13:56 06/14/18 14:00 06/14/18 14:05 06/14/18 15:50 Glucose (Fingerstick) 295 mg/dL (70-99) White Blood Count 10.9 x10^3/uL (4.0-11.0) Red Blood Count 2.20 x10^6/uL (3.50-5.40) Hemoglobin 7.0 g/dL (12.0-15.5) Hematocrit 21.7 % (36.0-47.0) Mean Corpuscular Volume 99 fL (79-100) Mean Corpuscular Hemoglobin 32 pg (25-35) Mean Corpuscular Hemoglobin Concent 32 g/dL (31-37) Red Cell Distribution Width 14.0 % (11.5-14.5) Platelet Count 230 x10^3/uL (140-400) Neutrophils (%) (Auto) 71 % (31-73) Lymphocytes (%) (Auto) 17 % (24-48) Monocytes (%) (Auto) 8 % (0-9) Eosinophils (%) (Auto) 3 % (0-3) Basophils (%) (Auto) 1 % (0-3) Neutrophils # (Auto) 7.8 x10^3uL (1.8-7.7) Lymphocytes # (Auto) 1.8 x10^3/uL (1.0-4.8) Monocytes # (Auto) 0.9 x10^3/uL (0.0-1.1) Eosinophils # (Auto) 0.4 x10^3/uL (0.0-0.7) Basophils # (Auto) 0.1 x10^3/uL (0.0-0.2) Segmented Neutrophils % 71 % (35-66) Lymphocytes % 12 % (24-48) Monocytes % 11 % (0-10) Eosinophils % 5 % (0-5) Basophils % 1 % (0-3) Myelocytes % % (0-0) Platelet Estimate Adequate (ADEQUATE) D-Dimer (Bree) 4.95 ug/mlFEU (0.00-0.50) Sodium Level 134 mmol/L (136-145) Potassium Level 5.2 mmol/L (3.5-5.1) Chloride Level 93 mmol/L (98-107) Carbon Dioxide Level 15 mmol/L (21-32) Anion Gap 26 (6-14) Blood Urea Nitrogen 78 mg/dL (7-20) Creatinine 10.7 mg/dL (0.6-1.0) Estimated GFR (Cockcroft-Gault) 3.7 BUN/Creatinine Ratio 7 (6-20) Glucose Level 344 mg/dL (70-99) Lactic Acid Level 7.2 mmol/L (0.4-2.0) Calcium Level 7.4 mg/dL (8.5-10.1) Total Bilirubin 0.4 mg/dL (0.2-1.0) Aspartate Amino Transf (AST/SGOT) 13 U/L (15-37) Alanine Aminotransferase (ALT/SGPT) 11 U/L (14-59) Alkaline Phosphatase 81 U/L (46-116) Troponin I Quantitative < 0.017 ng/mL (0.000-0.055) FB-Ajk-F-Type Natriuretic Peptide > 07484 pg/mL (0-124) Total Protein 7.8 g/dL (6.4-8.2) Albumin 3.3 g/dL (3.4-5.0) Albumin/Globulin Ratio 0.7 (1.0-1.7) O2 Saturation 95 % (92-99) Arterial Blood pH 7.25 (7.35-7.45) Arterial Blood pCO2 at Patient Temp 33 mmHg (35-46) Arterial Blood pO2 at Patient Temp 96 mmHg (65-108) Arterial Blood HCO3 14 mmol/L (21-28) Arterial Blood Base Excess -12 mmol/L (-3-3) FiO2 32 Influenza Type A Antigen Negative (NEGATIVE) Influenza Type B Antigen Negative (NEGATIVE) VTE Prophylaxis Ordered VTE Prophylaxis Devices: Contraindicated VTE Pharmacological Prophylaxi: Yes Assessment/Plan Assessment/Plan A/P: Acute hypoxic respiratory failure - on BIPAP with improvement. Will consult pulm , though this seems like CHF exacerbation from lack of ultrafiltration with no dialysis for a week ESRD on dialysis, missed one week - Consult nephrology. Counseled on compliance with her and her daughter. I am not certain this has sunk in History of hyperkalemia - K 5.2, will monitor Anemia of ESRD - Hb of 7, she refuses transfusion as a jevohahs witness. Monitor dCHF - in acute exacerbation, cont BB, statin, ASA. Needs ultrafiltration. CAD history of CABG - stable, consult cardiology Hypertension - will monitor on meds Diabetes type 2 with hypoglycemic episodes- history of - reduce her home lantus and scheduled insulin Obesity, BMI 32 - counseled FEN - ADA renal diet PPX - Heparin FULL CODE ICU step-down for respiratory failure on BIPAP, 37 minutes of critical care time spent with patient and family. Will be inpatient at least 2 midnights. RAMON RO MD Jun 14, 2018 16:37
--- NOTE | 2018-06-14 16:48 | PHYS DOC ---
Past Medical History Past Medical History: CHF, Diabetes-Type II, High Cholesterol, Hypertension, [place] , Renal Disease, Renal Failure, Other Additional Past Medical Histor: PSORASIS Past Surgical History: Angioplasty, Other Additional Past Surgical Histo: 2L fluid removed from lungs, CARDIAC CATH/ STENTS,DIALYSIS CATH R CHEST Alcohol Use: None Drug Use: None Adult General Chief Complaint Chief Complaint: SHORTNESS OF BREATH HPI HPI Patient is a 63-year-old female who presents via EMS with report of shortness of breath/respiratory distress. Medics indicate that upon their arrival patient' s oxygen saturation was 86% on room air. Patient had labored breathing at that time. Upon arrival, patient had improved saturation on room air but clearly fatigued. Additional history is limited due to severity of patient condition. Review of Systems Review of Systems Constitutional: Denies fever [] Respiratory: Complains of cough and shortness of breath [] Cardiovascular: No additional information not addressed in HPI [] Integument: Denies rash or skin lesions [] A full review of systems is difficult to obtain due to severity of patient's symptoms. Current Medications Current Medications Current Medications Medications (Trade) Dose Ordered Sig/[place] Start Time Stop Time Status Last Admin Dose Admin Albuterol/ Ipratropium (Duoneb) 3 ml 1X ONCE 06/14/18 14:00 06/14/18 14:02 DC 06/14/18 14:10 3 ML Furosemide (Lasix) 60 mg 1X ONCE 06/14/18 15:00 06/14/18 15:01 DC 06/14/18 15:14 60 MG Insulin Human Regular (HumuLIN R VIAL) 10 unit 1X ONCE 06/14/18 16:00 06/14/18 16:04 DC Allergies Allergies Allergies Coded Allergies Type Severity Reaction Last Updated Verified No Known Drug Allergies 11/28/17 No Physical Exam Physical Exam Constitutional: Well developed, well nourished, in obvious respiratory distress. [] HENT: Normocephalic, atraumatic, bilateral external ears normal, oropharynx moist, no oral exudates, nose normal. [] Eyes: PERRLA, EOMI, conjunctiva normal, no discharge. [] Neck: Normal range of motion, no tenderness, supple. [] Cardiovascular: Regular rate and rhythm[] Lungs & Thorax: Fairly good air movement is noted throughout with rales in the lung bases to auscultation [] Abdomen: Bowel sounds normal, soft, no tenderness. [] Skin: Warm, dry, no erythema, no rash. [] Extremities: No tenderness, no cyanosis, no clubbing, ROM intact, no edema. [] Neurologic: Awake and alert, no focal deficits noted. [] Current Patient Data Vital Signs Vital Signs Date Time Temp Pulse Resp B/P (MAP) Pulse Ox O2 Delivery O2 Flow Rate FiO2 06/14/18 14:06 95 BiPAP/CPAP 06/14/18 14:00 97.9 101 30 143/63 (89) 97.9 Lab Values Laboratory Tests Test 06/14/18 13:56 06/14/18 14:00 06/14/18 14:05 06/14/18 15:50 Glucose (Fingerstick) 295 mg/dL (70-99) H White Blood Count 10.9 x10^3/uL (4.0-11.0) Red Blood Count 2.20 x10^6/uL (3.50-5.40) L Hemoglobin 7.0 g/dL (12.0-15.5) *L Hematocrit 21.7 % (36.0-47.0) L Mean Corpuscular Volume 99 fL (79-100) Mean Corpuscular Hemoglobin 32 pg (25-35) Mean Corpuscular Hemoglobin Concent 32 g/dL (31-37) Red Cell Distribution Width 14.0 % (11.5-14.5) Platelet Count 230 x10^3/uL (140-400) Neutrophils (%) (Auto) 71 % (31-73) Lymphocytes (%) (Auto) 17 % (24-48) L Monocytes (%) (Auto) 8 % (0-9) Eosinophils (%) (Auto) 3 % (0-3) Basophils (%) (Auto) 1 % (0-3) Neutrophils # (Auto) 7.8 x10^3uL (1.8-7.7) H Lymphocytes # (Auto) 1.8 x10^3/uL (1.0-4.8) Monocytes # (Auto) 0.9 x10^3/uL (0.0-1.1) Eosinophils # (Auto) 0.4 x10^3/uL (0.0-0.7) Basophils # (Auto) 0.1 x10^3/uL (0.0-0.2) Segmented Neutrophils % 71 % (35-66) H Lymphocytes % 12 % (24-48) L Monocytes % 11 % (0-10) H Eosinophils % 5 % (0-5) Basophils % 1 % (0-3) Myelocytes % % (0-0) Platelet Estimate Adequate (ADEQUATE) D-Dimer (Bree) 4.95 ug/mlFEU (0.00-0.50) H Sodium Level 134 mmol/L (136-145) L Potassium Level 5.2 mmol/L (3.5-5.1) H Chloride Level 93 mmol/L (98-107) L Carbon Dioxide Level 15 mmol/L (21-32) L Anion Gap 26 (6-14) H Blood Urea Nitrogen 78 mg/dL (7-20) H Creatinine 10.7 mg/dL (0.6-1.0) H Estimated GFR (Cockcroft-Gault) 3.7 BUN/Creatinine Ratio 7 (6-20) Glucose Level 344 mg/dL (70-99) H Lactic Acid Level 7.2 mmol/L (0.4-2.0) *H Calcium Level 7.4 mg/dL (8.5-10.1) L Total Bilirubin 0.4 mg/dL (0.2-1.0) Aspartate Amino Transferase (AST) 13 U/L (15-37) L Alanine Aminotransferase (ALT) 11 U/L (14-59) L Alkaline Phosphatase 81 U/L (46-116) Troponin I Quantitative < 0.017 ng/mL (0.000-0.055) WZ-Fmk-H-Type Natriuretic Peptide > 44628 pg/mL (0-124) H Total Protein 7.8 g/dL (6.4-8.2) Albumin 3.3 g/dL (3.4-5.0) L Albumin/Globulin Ratio 0.7 (1.0-1.7) L O2 Saturation 95 % (92-99) Arterial Blood pH 7.25 (7.35-7.45) L Arterial Blood pCO2 at Patient Temp 33 mmHg (35-46) L Arterial Blood pO2 at Patient Temp 96 mmHg (65-108) Arterial Blood HCO3 14 mmol/L (21-28) L Arterial Blood Base Excess -12 mmol/L (-3-3) L FiO2 32 Influenza Type A Antigen Negative (NEGATIVE) Influenza Type B Antigen Negative (NEGATIVE) Laboratory Tests 06/14/18 14:00 Laboratory Tests 06/14/18 14:00 EKG EKG [] Interpretation Time: EKG demonstrates normal sinus rhythm with rate of 99. Radiology/Procedures Radiology/Procedures [] Impressions: PROCEDURE: PORTABLE CHEST 1V Portable chest, 06/14/2018: HISTORY: Dyspnea Comparison is made to a study from 06/07/2018. A right jugular dialysis type catheter remains in place extending to the level the atriocaval junction. The heart is enlarged. Mild perihilar infiltrates have developed with loss of vascular margination. The findings suggest pulmonary edema. Blunting of the left lateral costophrenic angle suggests a small amount of left-sided pleural fluid. IMPRESSION: Mild parahilar-perivascular pulmonary edema Electronically signed by: Mikel Hinkle MD (06/14/2018 2:26 PM) [facility] Course & Med Decision Making Course & Med Decision Making Pertinent Labs and Imaging studies reviewed. (See chart for details) [] Dragon Disclaimer Dragon Disclaimer This electronic medical record was generated, in whole or in part, using a voice recognition dictation system. Departure Departure Impression: Primary Impression: CHF (congestive heart failure) Additional Impressions: Hyperkalemia ESRD (end stage renal disease) on dialysis Disposition: ADMITTED INPATIENT Admitting Physician: Other (Dr. Dhaliwal) Condition: IMPROVED Referrals: NO PCP (PCP) Problem Qualifiers Primary Impression: CHF (congestive heart failure) Heart failure type: unspecified Heart failure chronicity: unspecified Qualified Codes: I50.9 - Heart failure, unspecified LIZETH MUNOZ Jr. DO Jun 14, 2018 16:48
[2018-06-14] MEDS ORDERED: ACETAMINOPHEN 325 MG TABLET. PO PRN (17:00)
[2018-06-14 17:21] LABS: BASE EXCESS ABG -5 mmol/L (-3-3); HCO3 ABG 20 mmol/L (21-28); PCO2 ABG 36 mmHg (35-46); PO2 ABG 115 mmHg (65-108); SAT O2 ABG 97 % (92-99)
[2018-06-14 18:03] LABS: FIO2 ABG 40
[2018-06-14 18:09] VITALS: BP 117/52
--- NOTE | 2018-06-14 18:28 | NUR ---
RN NOTE daughter magdi wants to wait to do the admitting questions and medications stating she wanted to get some clothes and items for her mother. this rn will give report to ariana cardenas rn
[2018-06-14] MEDS ORDERED: CARV25TA2 PO (19:15)
[2018-06-14] MEDS ORDERED: CLON0.5T11 PO (19:15)
[2018-06-14] MEDS ORDERED: FURO40TA4 PO (19:16)
[2018-06-14] MEDS ORDERED: ISOS30TA4 PO (19:17)
[2018-06-14 19:41] VITALS: BP 139/64
[2018-06-14] MEDS: IPRATRPIUM/ALBUTEROL 0.5/2.5MG 3 ML NEBU. NEB SCH (20:57)
[2018-06-14] MEDS ORDERED: clonazePAM 0.5 MG TABLET PO PRN (22:00)
[2018-06-14] MEDS: INSULIN GLARGINE 300 UNITS/3 ML INSULN.PEN. SQ SCH (22:46)
[2018-06-14 23:33] VITALS: BP 198/87
[2018-06-15] VITALS (11 sets, daily range): BP systolic 146–203; BP diastolic 66–87
[2018-06-15 03:58] LABS: BASO % 1 % (0-3); EOS # 0.1 x10^3/uL (0.0-0.7); EOS % 1 % (0-3); LYMPH # 0.9 x10^3/uL (1.0-4.8); LYMPH % 13 % (24-48); MEAN CORPUSCULAR HEMOGLOBIN 32 pg (25-35); MEAN CORPUSCULAR HGB CONC 33 g/dL (31-37); MEAN CORPUSCULAR VOLUME 96 fL (79-100); MONO # 0.5 x10^3/uL (0.0-1.1); MONO % 7 % (0-9); NEUT # 5.9 x10^3uL (1.8-7.7); NEUT % 79 % (31-73); PLATELET COUNT 166 x10^3/uL (140-400); RED BLOOD COUNT 1.91 x10^6/uL (3.50-5.40); RED CELL DISTRIBUTION WIDTH 13.9 % (11.5-14.5); WHITE BLOOD COUNT 7.5 x10^3/uL (4.0-11.0)
[2018-06-15 04:10] LABS: CALCIUM 7.3 mg/dL (8.5-10.1); CREATININE 11.1 mg/dL (0.6-1.0); GFR 3.5; POTASSIUM 5.2 mmol/L (3.5-5.1)
[2018-06-15 04:11] LABS: HEMATOCRIT 18.3 % (36.0-47.0)
[2018-06-15] MEDS ORDERED: IRON SUCROSE COMPLEX 200 MG in IV NORMAL SALINE 100ML 100 ML IV ONE (05:00)
[2018-06-15] MEDS: INSULIN LISPRO 300 UNITS/3 ML INSULN.PEN. SQ SCH ×3 (08:00→17:00)
[2018-06-15] MEDS: IPRATRPIUM/ALBUTEROL 0.5/2.5MG 3 ML NEBU. NEB SCH ×5 (08:10→20:16)
--- NOTE | 2018-06-15 08:19 | PDOC2 ---
CARDIAC CONSULT DATE OF CONSULT Date of Consult DATE: 06/15/18 TIME: 07:49 REASON FOR CONSULT Reason for Consult: CHF Exacerbation REFERRING PHYSICIAN Referring Physician: Dr. Dhaliwal SOURCE Source: Chart review, Patient HISTORY OF PRESENT ILLNESS HISTORY OF PRESENT ILLNESS This is 63 yo female, with a history of ESRD, ICM, and CAD s/p PCI/stenting, who presented secondary to shortness of breath. Patient has been non-compliant with HD treatments. Is M,W,F dialysis. Has not dialyzed since last Tuesday. Daughter reports this is due to increasing back and chest pain. Daughter reports she has been short of breath for about a week. Progressively worsening. Was so short of breath prior to arrival she was not able to walk. EMS was called. Daughter reports her chest pain is located in her central chest. Has been constant and aching. No specific or worsening factors. Of note, patient has had multiple recent admissions due to hyperkalemia and missed HD. Patient does not accept blood products. PAST MEDICAL HISTORY Past Medical History Cardiovascular: HTN, CAD s/p PCI/stenting to RCA, Hyperlipidemia, ICM, CHF Pulmonary: No pertinent hx, Other (pleural effusion with thoracentesis) CENTRAL NERVOUS SYSTEM: Other (No pertinent history) GI: GERD Heme/Onc: No pertinent hx Hepatobiliary: No pertinent hx Psych: No pertinent hx Musculoskeletal: Osteoarthritis Rheumatologic: No pertinent hx Infectious disease: No pertinent hx ENT: No pertinent hx Renal/: CKD, renal cyst, ESRD Endocrine: Diabetes (2) Dermatology: Psoriasis PAST SURGICAL HISTORY Past Surgical History ureteral stent placement, PCI/stent to RCA 05/2015 FAMILY HISTORY Family History: Heart Disease SOCIAL HISTORY Social History Smoke: No ALCOHOL: none Drugs: None Lives: with Family CURRENT MEDICATIONS CURRENT MEDICATIONS Current Medications Medications (Trade) Dose Ordered Sig/[place] Route PRN Reason Start Time Stop Time Status Last Admin Dose Admin Albuterol/ Ipratropium (Duoneb) 3 ml 1X ONCE NEB 06/14/18 14:00 06/14/18 14:02 DC 06/14/18 14:10 Furosemide (Lasix) 60 mg 1X ONCE IVP 06/14/18 15:00 06/14/18 15:01 DC 06/14/18 15:14 Insulin Human Regular (HumuLIN R VIAL) 10 unit 1X ONCE IV 06/14/18 16:00 06/14/18 16:04 DC 06/14/18 17:04 Albuterol/ Ipratropium (Duoneb) 3 ml RTQID NEB 06/14/18 20:00 06/15/18 19:59 06/14/18 20:57 Insulin Glargine (Lantus) 7 units QHS SQ 06/14/18 22:30 06/14/18 22:46 Iron Sucrose 200 mg/Sodium Chloride 110 ml @ 55 mls/hr 1X ONCE IV 06/15/18 05:00 06/15/18 06:59 DC 06/15/18 04:53 ALLERGIES ALLERGIES: Coded Allergies: No Known Drug Allergies (Unverified , 11/28/17) ROS Review of System 14 point ROS conducted with pertinent positives noted above in HPI. PHYSICAL EXAM PHYSICAL EXAM General: Alert, Oriented X3, Cooperative, No acute distress HEENT: Atraumatic, Mucous membr. moist/pink Lungs: Other (bibasilar crackles) Heart: Regular rate (SR), Normal S1, Normal S2, Other (3/6 systolic murmur) Abdomen: Soft, No tenderness Extremities: No cyanosis, no edema Skin: No breakdown, No significant lesion Neuro: Normal speech, Sensation intact Psych/Mental Status: Mental status NL, drowsy MUSCULOSKELETAL: Osteoarthritic changes both hands VITALS VITALS Vital Signs Date Time Temp Pulse Resp B/P (MAP) Pulse Ox O2 Delivery O2 Flow Rate FiO2 06/15/18 06:09 98.0 67 20 153/70 (97) 100 BiPAP/CPAP 98.0 06/14/18 20:40 3.0 LABS Lab: Laboratory Tests Test 06/14/18 13:56 06/14/18 14:00 06/14/18 14:05 06/14/18 15:50 Glucose (Fingerstick) 295 mg/dL (70-99) White Blood Count 10.9 x10^3/uL (4.0-11.0) Red Blood Count 2.20 x10^6/uL (3.50-5.40) Hemoglobin 7.0 g/dL (12.0-15.5) Hematocrit 21.7 % (36.0-47.0) Mean Corpuscular Volume 99 fL (79-100) Mean Corpuscular Hemoglobin 32 pg (25-35) Mean Corpuscular Hemoglobin Concent 32 g/dL (31-37) Red Cell Distribution Width 14.0 % (11.5-14.5) Platelet Count 230 x10^3/uL (140-400) Neutrophils (%) (Auto) 71 % (31-73) Lymphocytes (%) (Auto) 17 % (24-48) Monocytes (%) (Auto) 8 % (0-9) Eosinophils (%) (Auto) 3 % (0-3) Basophils (%) (Auto) 1 % (0-3) Neutrophils # (Auto) 7.8 x10^3uL (1.8-7.7) Lymphocytes # (Auto) 1.8 x10^3/uL (1.0-4.8) Monocytes # (Auto) 0.9 x10^3/uL (0.0-1.1) Eosinophils # (Auto) 0.4 x10^3/uL (0.0-0.7) Basophils # (Auto) 0.1 x10^3/uL (0.0-0.2) Segmented Neutrophils % 71 % (35-66) Lymphocytes % 12 % (24-48) Monocytes % 11 % (0-10) Eosinophils % 5 % (0-5) Basophils % 1 % (0-3) Myelocytes % % (0-0) Platelet Estimate Adequate (ADEQUATE) D-Dimer (Bree) 4.95 ug/mlFEU (0.00-0.50) Sodium Level 134 mmol/L (136-145) Potassium Level 5.2 mmol/L (3.5-5.1) Chloride Level 93 mmol/L (98-107) Carbon Dioxide Level 15 mmol/L (21-32) Anion Gap 26 (6-14) Blood Urea Nitrogen 78 mg/dL (7-20) Creatinine 10.7 mg/dL (0.6-1.0) Estimated GFR (Cockcroft-Gault) 3.7 BUN/Creatinine Ratio 7 (6-20) Glucose Level 344 mg/dL (70-99) Lactic Acid Level 7.2 mmol/L (0.4-2.0) Calcium Level 7.4 mg/dL (8.5-10.1) Total Bilirubin 0.4 mg/dL (0.2-1.0) Aspartate Amino Transf (AST/SGOT) 13 U/L (15-37) Alanine Aminotransferase (ALT/SGPT) 11 U/L (14-59) Alkaline Phosphatase 81 U/L (46-116) Troponin I Quantitative < 0.017 ng/mL (0.000-0.055) UI-Mlg-V-Type Natriuretic Peptide > 48024 pg/mL (0-124) Total Protein 7.8 g/dL (6.4-8.2) Albumin 3.3 g/dL (3.4-5.0) Albumin/Globulin Ratio 0.7 (1.0-1.7) O2 Saturation 95 % (92-99) Arterial Blood pH 7.25 (7.35-7.45) Arterial Blood pCO2 at Patient Temp 33 mmHg (35-46) Arterial Blood pO2 at Patient Temp 96 mmHg (65-108) Arterial Blood HCO3 14 mmol/L (21-28) Arterial Blood Base Excess -12 mmol/L (-3-3) FiO2 32 Influenza Type A Antigen Negative (NEGATIVE) Influenza Type B Antigen Negative (NEGATIVE) Test 06/14/18 17:10 06/14/18 20:42 06/15/18 03:30 O2 Saturation 97 % (92-99) Arterial Blood pH 7.36 (7.35-7.45) Arterial Blood pCO2 at Patient Temp 36 mmHg (35-46) Arterial Blood pO2 at Patient Temp 115 mmHg (65-108) Arterial Blood HCO3 20 mmol/L (21-28) Arterial Blood Base Excess -5 mmol/L (-3-3) FiO2 40 Glucose (Fingerstick) 159 mg/dL (70-99) White Blood Count 7.5 x10^3/uL (4.0-11.0) Red Blood Count 1.91 x10^6/uL (3.50-5.40) Hemoglobin 6.0 g/dL (12.0-15.5) Hematocrit 18.3 % (36.0-47.0) Mean Corpuscular Volume 96 fL (79-100) Mean Corpuscular Hemoglobin 32 pg (25-35) Mean Corpuscular Hemoglobin Concent 33 g/dL (31-37) Red Cell Distribution Width 13.9 % (11.5-14.5) Platelet Count 166 x10^3/uL (140-400) Neutrophils (%) (Auto) 79 % (31-73) Lymphocytes (%) (Auto) 13 % (24-48) Monocytes (%) (Auto) 7 % (0-9) Eosinophils (%) (Auto) 1 % (0-3) Basophils (%) (Auto) 1 % (0-3) Neutrophils # (Auto) 5.9 x10^3uL (1.8-7.7) Lymphocytes # (Auto) 0.9 x10^3/uL (1.0-4.8) Monocytes # (Auto) 0.5 x10^3/uL (0.0-1.1) Eosinophils # (Auto) 0.1 x10^3/uL (0.0-0.7) Basophils # (Auto) 0.0 x10^3/uL (0.0-0.2) Sodium Level 136 mmol/L (136-145) Potassium Level 5.2 mmol/L (3.5-5.1) Chloride Level 97 mmol/L (98-107) Carbon Dioxide Level 22 mmol/L (21-32) Anion Gap 17 (6-14) Blood Urea Nitrogen 84 mg/dL (7-20) Creatinine 11.1 mg/dL (0.6-1.0) Estimated GFR (Cockcroft-Gault) 3.5 Glucose Level 185 mg/dL (70-99) Calcium Level 7.3 mg/dL (8.5-10.1) ECHOCARDIOGRAM ECHOCARDIOGRAM <Conclusion> Left ventricle systolic function is severely impaired. The Ejection Fraction is 25%. There is severe global hypokinesis with predominance noted in the inferior, apical iraheta. Doppler and Color Flow revealed severe mitral regurgitation. Doppler and Color Flow revealed mild to moderate tricuspid regurgitation. There is moderate pulmonary hypertension. The PA pressure was estimated at 54 mmHg. DATE: 06/01/16 1434 <Conclusion> The left ventricle is normal size. The left ventricular systolic function is normal and the ejection fraction is within normal range. LV ejection fraction id 55-60%. There is mild concentric left ventricular hypertrophy. There is no significant aortic valvular stenosis. Doppler and Color Flow revealed no significant aortic regurgitation. Doppler and Color-flow revealed mild mitral regurgitation. Doppler and Color Flow revealed trace tricuspid regurgitation. DATE: 06/24/17 1811 HEART CATH HEART CATH Conclusion 1. 80% stenosis involving the proximal to midsegment of the right coronary artery. Also seen was diffuse disease involving the distal segments of the left anterior descending and left circumflex artery that are not amenable for percutaneous intervention. 2. Successful PCI/stents placement to the right coronary artery. Recommendations 1. Aspirin 325 mg daily 2. Plavix 75 mg daily for preferably one year 3. Cardiovascular risk factor modification DATE: 06/27/15 0951 ASSESSMENT/PLAN ASSESSMENT/PLAN 1. Acute respiratory failure in the setting of a/c HF and anemia 2. Acute on chronic combined systolic/diastolic heart failure; secondary to noncompliance with HD 3. ESRD on HD; uremic, hyperkalemia. Missed HD Tuesday and Tuesday 4. Anemia; hgb 6.0. Does not accept blood products. 5. Chest pain, atypical. Troponin negative 6. Accelerated HTN 7. Lactic acidosis 8. Persistent noncompliance secondary to financial constraints. 9. CAD: PCI/stent to RCA, diffuse disease to LCx and LAD 06/2015 10. Hx of ICM; LVEF previously 25%. Most recent echo showed LV recovery with an EF of 55-60% 11. Hyperlipidemia; statin Recommendations Check echo to assess LV systolic function Secondary prevention measures SS consult Fluid off loading via HD as per nephrology Monitor Hgb. D/w primary cardiology, will stop Plavix for now and continue ASA. Resume home antiHTN therapy and assess need for therapy titration Discussed significantly with daughter in regards to compliance and adherence to treatment. NABILA TOLEDO APRN Jun 15, 2018 08:19
[2018-06-15] MEDS: LISINOPRIL 20 MG TABLET PO SCH (08:46)
[2018-06-15] MEDS: CARVEDILOL 12.5 MG TABLET. PO SCH ×2 (08:46→17:45)
[2018-06-15] MEDS: ASPIRIN ENTERIC COATED 81 MG TABLET.DR. PO SCH (08:47)
[2018-06-15] MEDS: ISOSORBIDE MONONITRATE ER 30 MG TAB.ER.24H PO SCH (08:47)
[2018-06-15] MEDS ORDERED: CLOPIDOGREL BISULFATE 75 MG TABLET PO SCH (09:00)
--- NOTE | 2018-06-15 10:31 | CONS ---
DATE OF CONSULTATION: ATTENDING PHYSICIAN: Dr. Dhaliwal. REASON FOR CONSULTATION: Dyspnea, abnormal chest x-ray. HISTORY OF PRESENT ILLNESS: The patient is a 63-year-old female who does not speak [place], but her daughter was at the bedside. The patient has history of end-stage renal disease. She gets dialyzed on Tuesday, Tuesday and Tuesday. However, she missed Tuesday and Tuesday as she was having chest pain. The patient had shortness of breath for the last 4-5 days. No leg edema. No cough, no fever, no chills. The pain was mostly in the back. She was seen in the Emergency Room and a chest x-ray was consistent with congestive heart failure and I have reviewed the chest x-ray as well, as a result she is hospitalized. Normally, she does not take oxygen. She has no headache, no nausea or vomiting, no diarrhea. No dysuria. No focal weakness and no leg edema. Her hemoglobin was noted to be 6. Her ABGs showed a pH of 7.25, pCO2 of 33 and a pO2 of 96 with bicarbonate of 14 and a followup ABG after bicarbonate with a pH of 7.36, pCO2 of 36 and a pO2 of 115, bicarbonate of 20. Her BUN was 84 and creatinine of 11. Lactic acid was 7.2. I have been asked to see her for further evaluation. PAST MEDICAL HISTORY: Significant for history of end-stage renal disease, on hemodialysis; history of CHF; history of CAD. No history of tobacco use. Diabetes. PAST SURGICAL HISTORY: No recent surgeries. FAMILY HISTORY: Noncontributory to lungs. ALLERGIES: None. CURRENT MEDICATIONS: Reviewed, as listed in the MRAD. REVIEW OF SYSTEMS: Twelve-point system obtained. Pertinent positives discussed in my history of present illness, otherwise noncontributory. All systems that were negative were reviewed as well. PHYSICAL EXAMINATION: VITAL SIGNS: Reviewed, afebrile, blood pressure on the high side at 188 systolic. Pulse ox 95% initially on BiPAP, now on cannula. HEENT: Sclerae nonicteric. NECK: Supple. LUNGS: With crackles at the bases. CARDIOVASCULAR: Regular rate. ABDOMEN: Soft, nontender. EXTREMITIES: With no pitting edema. LABORATORY DATA: Reviewed. BUN and creatinine 84 and 11.1. Lactic acid 7.2. Her proBNP more than 35,000. Her white cell count 7.5, hemoglobin 6.0. IMPRESSION: 1. Acute hypoxic respiratory failure secondary to multifactorial etiologies including combination of acute congestive heart failure and [id number] anemia. 2. End-stage renal disease, missed dialysis on Tuesday and Tuesday, as result now in congestive heart failure. 3. Dyspnea secondary to congestive heart failure. 4. No clinical evidence of pneumonia. RECOMMENDATIONS: 1. Needs to be dialyzed with ultrafiltration. 2. Consider transfusion of packed RBCs. 3. Follow up lactic acid level. The initial level was high due to hypoxia and increased work of breathing. Unlikely sepsis. 4. P.r.n. bronchodilators. 5. D-dimer was high, but is a nonspecific finding. 6. Discussed with RN and discussed with Nephrology. WENDY SANDOVAL MD DR: EVELIO/cris JOB#: [id number] / [id number]
--- NOTE | 2018-06-15 12:43 | PDOC2 ---
CONSULT Date of Consult Date of Consult DATE: 06/15/18 TIME: 12:30 Source Source: Caregiver, Chart review History of Present Illness Reason for Visit: Pt is a 63 old Samoan-speaking female with multiple Hospitalizations, ESRD Tuesday - multiple missed treatments , this visit missed one and half weeks of dialysis, last dialysis was here in the hospital. She has been short of breath, O2 saturations in the 70s per EMS Came in hypoxic and we have placed her on BIPAP 12/ 40% FiO2. The patient had shortness of breath for the last 4-5 days. No leg edema. No cough, no fever, no chills. Denies nausea or vomiting, no diarrhea. No dysuria. DW daughter at every hospitalization about risks due to non compliance Currently she is stable, On o2 by NC, Not in distress Chest x-ray was consistent with congestive heart failure Past Medical History Cardiovascular: CAD, CHF, HTN, Hyperlipidemia Pulmonary: No pertinent hx, Other CENTRAL NERVOUS SYSTEM: Other GI: GERD Heme/Onc: No pertinent hx Hepatobiliary: No pertinent hx Psych: No pertinent hx Rheumatologic: No pertinent hx Infectious disease: No pertinent hx Renal/: Chronic renal failure Endocrine: Diabetes Past Surgical History Past Surgical History: Other Family History Family History: Heart Disease Social History ALCOHOL: none Drugs: None Lives: with Family Current Problem List Problem List Problems Medical Problems: (1) CHF (congestive heart failure) Status: Acute (2) ESRD (end stage renal disease) on dialysis Status: Acute (3) Hyperkalemia Status: Acute Current Medications Current Medications Current Medications Albuterol/ Ipratropium (Duoneb) 3 ml 1X ONCE NEB Last administered on at 14:10; Start 06/14/18 at 14:00; Stop 06/14/18 at 14:02; Status DC Furosemide (Lasix) 60 mg 1X ONCE IVP Last administered on 06/14/18at 15:14; Start 06/14/18 at 15:00; Stop 06/14/18 at 15:01; Status DC Insulin Human Regular (HumuLIN R VIAL) 10 unit 1X ONCE IV Last administered on 06/14/18at 17:04; Start 06/14/18 at 16:00; Stop 06/14/18 at 16:04; Status DC Acetaminophen (Tylenol) 650 mg PRN Q4HRS PRN PO FEVER; Start 06/14/18 at 17:00 ; Stop 06/15/18 at 16:59 Albuterol/ Ipratropium (Duoneb) 3 ml RTQID NEB Last administered on 06/14/18at 20:57; Start 06/14/18 at 20:00; Stop 06/15/18 at 19:59 Albuterol/ Ipratropium (Duoneb) 3 ml RTQID NEB Last administered on 06/15/18at 11:31; Start 06/15/18 at 08:00 Amlodipine Besylate (Norvasc) 5 mg DAILYWLUN PO ; Start 06/15/18 at 12:00 Aspirin (Ecotrin) 81 mg DAILYWBKFT PO Last administered on 06/15/18at 08:47; Start 06/15/18 at 08:00 Atorvastatin Calcium (Lipitor) 80 mg QHS PO ; Start 06/15/18 at 21:00 Clonazepam (KlonoPIN) 0.5 mg PRN TID PRN PO ANXIETY / AGITATION; Start at 22:00 Clopidogrel Bisulfate (Plavix) 75 mg DAILY PO Last administered on 06/15/18at 08 :47; Start 06/15/18 at 09:00 Insulin Glargine (Lantus) 7 units QHS SQ Last administered on 06/14/18at 22:46; Start 06/14/18 at 22:30 Insulin Human Lispro (HumaLOG) 10 units TIDWMEALS SQ ; Start 06/15/18 at 08:00 Isosorbide Mononitrate (Imdur) 30 mg DAILY PO Last administered on 06/15/18at 08 :47; Start 06/15/18 at 09:00 Lisinopril (Prinivil) 20 mg DAILY PO Last administered on 06/15/18at 08:46; Start 06/15/18 at 09:00 Carvedilol (Coreg) 25 mg BIDWMEALS PO Last administered on 06/15/18at 08:46; Start 06/15/18 at 08:00 Iron Sucrose 200 mg/Sodium Chloride 110 ml @ 55 mls/hr 1X ONCE IV Last administered on 06/15/18at 04:53; Start 06/15/18 at 05:00; Stop 06/15/18 at 06:59 ; Status DC Active Scripts Active Humalog (Insulin Lispro) 100 Unit/1 Ml Insuln.pen 10 Units SQ TIDWMEALS 30 Days Lantus Solostar (Insulin Glargine,Hum.rec.anlog) 100 Unit/1 Ml Insuln.pen 7 Units SQ QHS 30 Days Atorvastatin Calcium 40 Mg Tablet 80 Mg PO QHS Amlodipine Besylate 5 Mg Tablet 5 Mg PO DAILYWLUN Clopidogrel (Clopidogrel Bisulfate) 75 Mg Tablet 75 Mg PO DAILY Lisinopril 20 Mg Tablet 1 Tab PO DAILY Aspirin Ec (Aspirin) 81 Mg Tablet.dr 81 Mg PO DAILYWBKFT Reported Isosorbide Mononitrate Er (Isosorbide Mononitrate) 30 Mg Tab.er.24h 30 Mg PO DAILY Furosemide 40 Mg Tablet 40 Mg PO DAILY Carvedilol 25 Mg Tablet 25 Mg PO BIDWMEALS Clonazepam 0.5 Mg Tablet 0.5 Mg PO TID PRN Allergies Allergies: Coded Allergies: No Known Drug Allergies (Unverified , 11/28/17) ROS Review of System As per HPI Physical Exam Physical Exam GEN- NAD HEENT: OM moist NECK: Supple. LUNGS: crackles at the bases, Non labored CARDIOVASCULAR: RRR ABDOMEN: Soft, nontender, obese EXTREMITIES: no pitting edema Skin No rash Gu No childress Neuro- AxOx3 Vital Signs Vital Signs Date Time Temp Pulse Resp B/P (MAP) Pulse Ox O2 Delivery O2 Flow Rate FiO2 06/15/18 11:31 96 Nasal Cannula 3.0 06/15/18 11:00 97.7 74 20 156/87 (110) 97.7 Assessment & Plan ESRD- On HD MWF Chronic Non complaince- Misses HD for weeks at a time Dw Daughter and Pt multiple times HD today with UF , discussed ordered with architectural engineer Anemia- Hgb < 7 PRBC as per primary Can transfuse on HD Hyperkalemia- mild HD today Acute hypoxic respiratory failure Acute on Chr CHF HTN- Antihypertensives Card managing HD today with UF Labs Labs Laboratory Tests Test 06/14/18 13:56 06/14/18 14:00 06/14/18 14:05 06/14/18 15:50 Glucose (Fingerstick) 295 mg/dL (70-99) White Blood Count 10.9 x10^3/uL (4.0-11.0) Red Blood Count 2.20 x10^6/uL (3.50-5.40) Hemoglobin 7.0 g/dL (12.0-15.5) Hematocrit 21.7 % (36.0-47.0) Mean Corpuscular Volume 99 fL (79-100) Mean Corpuscular Hemoglobin 32 pg (25-35) Mean Corpuscular Hemoglobin Concent 32 g/dL (31-37) Red Cell Distribution Width 14.0 % (11.5-14.5) Platelet Count 230 x10^3/uL (140-400) Neutrophils (%) (Auto) 71 % (31-73) Lymphocytes (%) (Auto) 17 % (24-48) Monocytes (%) (Auto) 8 % (0-9) Eosinophils (%) (Auto) 3 % (0-3) Basophils (%) (Auto) 1 % (0-3) Neutrophils # (Auto) 7.8 x10^3uL (1.8-7.7) Lymphocytes # (Auto) 1.8 x10^3/uL (1.0-4.8) Monocytes # (Auto) 0.9 x10^3/uL (0.0-1.1) Eosinophils # (Auto) 0.4 x10^3/uL (0.0-0.7) Basophils # (Auto) 0.1 x10^3/uL (0.0-0.2) Segmented Neutrophils % 71 % (35-66) Lymphocytes % 12 % (24-48) Monocytes % 11 % (0-10) Eosinophils % 5 % (0-5) Basophils % 1 % (0-3) Myelocytes % % (0-0) Platelet Estimate Adequate (ADEQUATE) D-Dimer (Bree) 4.95 ug/mlFEU (0.00-0.50) Sodium Level 134 mmol/L (136-145) Potassium Level 5.2 mmol/L (3.5-5.1) Chloride Level 93 mmol/L (98-107) Carbon Dioxide Level 15 mmol/L (21-32) Anion Gap 26 (6-14) Blood Urea Nitrogen 78 mg/dL (7-20) Creatinine 10.7 mg/dL (0.6-1.0) Estimated GFR (Cockcroft-Gault) 3.7 BUN/Creatinine Ratio 7 (6-20) Glucose Level 344 mg/dL (70-99) Lactic Acid Level 7.2 mmol/L (0.4-2.0) Calcium Level 7.4 mg/dL (8.5-10.1) Total Bilirubin 0.4 mg/dL (0.2-1.0) Aspartate Amino Transf (AST/SGOT) 13 U/L (15-37) Alanine Aminotransferase (ALT/SGPT) 11 U/L (14-59) Alkaline Phosphatase 81 U/L (46-116) Troponin I Quantitative < 0.017 ng/mL (0.000-0.055) HH-Gvy-T-Type Natriuretic Peptide > 21107 pg/mL (0-124) Total Protein 7.8 g/dL (6.4-8.2) Albumin 3.3 g/dL (3.4-5.0) Albumin/Globulin Ratio 0.7 (1.0-1.7) O2 Saturation 95 % (92-99) Arterial Blood pH 7.25 (7.35-7.45) Arterial Blood pCO2 at Patient Temp 33 mmHg (35-46) Arterial Blood pO2 at Patient Temp 96 mmHg (65-108) Arterial Blood HCO3 14 mmol/L (21-28) Arterial Blood Base Excess -12 mmol/L (-3-3) FiO2 32 Influenza Type A Antigen Negative (NEGATIVE) Influenza Type B Antigen Negative (NEGATIVE) Test 06/14/18 17:10 06/14/18 20:42 06/15/18 03:30 06/15/18 08:37 O2 Saturation 97 % (92-99) Arterial Blood pH 7.36 (7.35-7.45) Arterial Blood pCO2 at Patient Temp 36 mmHg (35-46) Arterial Blood pO2 at Patient Temp 115 mmHg (65-108) Arterial Blood HCO3 20 mmol/L (21-28) Arterial Blood Base Excess -5 mmol/L (-3-3) FiO2 40 Glucose (Fingerstick) 159 mg/dL (70-99) 135 mg/dL (70-99) White Blood Count 7.5 x10^3/uL (4.0-11.0) Red Blood Count 1.91 x10^6/uL (3.50-5.40) Hemoglobin 6.0 g/dL (12.0-15.5) Hematocrit 18.3 % (36.0-47.0) Mean Corpuscular Volume 96 fL (79-100) Mean Corpuscular Hemoglobin 32 pg (25-35) Mean Corpuscular Hemoglobin Concent 33 g/dL (31-37) Red Cell Distribution Width 13.9 % (11.5-14.5) Platelet Count 166 x10^3/uL (140-400) Neutrophils (%) (Auto) 79 % (31-73) Lymphocytes (%) (Auto) 13 % (24-48) Monocytes (%) (Auto) 7 % (0-9) Eosinophils (%) (Auto) 1 % (0-3) Basophils (%) (Auto) 1 % (0-3) Neutrophils # (Auto) 5.9 x10^3uL (1.8-7.7) Lymphocytes # (Auto) 0.9 x10^3/uL (1.0-4.8) Monocytes # (Auto) 0.5 x10^3/uL (0.0-1.1) Eosinophils # (Auto) 0.1 x10^3/uL (0.0-0.7) Basophils # (Auto) 0.0 x10^3/uL (0.0-0.2) Sodium Level 136 mmol/L (136-145) Potassium Level 5.2 mmol/L (3.5-5.1) Chloride Level 97 mmol/L (98-107) Carbon Dioxide Level 22 mmol/L (21-32) Anion Gap 17 (6-14) Blood Urea Nitrogen 84 mg/dL (7-20) Creatinine 11.1 mg/dL (0.6-1.0) Estimated GFR (Cockcroft-Gault) 3.5 Glucose Level 185 mg/dL (70-99) Calcium Level 7.3 mg/dL (8.5-10.1) Test 06/15/18 11:36 Glucose (Fingerstick) 159 mg/dL (70-99) Laboratory Tests Test 06/14/18 13:56 06/14/18 14:00 06/14/18 14:05 06/14/18 15:50 Glucose (Fingerstick) 295 mg/dL (70-99) White Blood Count 10.9 x10^3/uL (4.0-11.0) Red Blood Count 2.20 x10^6/uL (3.50-5.40) Hemoglobin 7.0 g/dL (12.0-15.5) Hematocrit 21.7 % (36.0-47.0) Mean Corpuscular Volume 99 fL (79-100) Mean Corpuscular Hemoglobin 32 pg (25-35) Mean Corpuscular Hemoglobin Concent 32 g/dL (31-37) Red Cell Distribution Width 14.0 % (11.5-14.5) Platelet Count 230 x10^3/uL (140-400) Neutrophils (%) (Auto) 71 % (31-73) Lymphocytes (%) (Auto) 17 % (24-48) Monocytes (%) (Auto) 8 % (0-9) Eosinophils (%) (Auto) 3 % (0-3) Basophils (%) (Auto) 1 % (0-3) Neutrophils # (Auto) 7.8 x10^3uL (1.8-7.7) Lymphocytes # (Auto) 1.8 x10^3/uL (1.0-4.8) Monocytes # (Auto) 0.9 x10^3/uL (0.0-1.1) Eosinophils # (Auto) 0.4 x10^3/uL (0.0-0.7) Basophils # (Auto) 0.1 x10^3/uL (0.0-0.2) Segmented Neutrophils % 71 % (35-66) Lymphocytes % 12 % (24-48) Monocytes % 11 % (0-10) Eosinophils % 5 % (0-5) Basophils % 1 % (0-3) Myelocytes % % (0-0) Platelet Estimate Adequate (ADEQUATE) D-Dimer (Bree) 4.95 ug/mlFEU (0.00-0.50) Sodium Level 134 mmol/L (136-145) Potassium Level 5.2 mmol/L (3.5-5.1) Chloride Level 93 mmol/L (98-107) Carbon Dioxide Level 15 mmol/L (21-32) Anion Gap 26 (6-14) Blood Urea Nitrogen 78 mg/dL (7-20) Creatinine 10.7 mg/dL (0.6-1.0) Estimated GFR (Cockcroft-Gault) 3.7 BUN/Creatinine Ratio 7 (6-20) Glucose Level 344 mg/dL (70-99) Lactic Acid Level 7.2 mmol/L (0.4-2.0) Calcium Level 7.4 mg/dL (8.5-10.1) Total Bilirubin 0.4 mg/dL (0.2-1.0) Aspartate Amino Transf (AST/SGOT) 13 U/L (15-37) Alanine Aminotransferase (ALT/SGPT) 11 U/L (14-59) Alkaline Phosphatase 81 U/L (46-116) Troponin I Quantitative < 0.017 ng/mL (0.000-0.055) FJ-Pck-B-Type Natriuretic Peptide > 52067 pg/mL (0-124) Total Protein 7.8 g/dL (6.4-8.2) Albumin 3.3 g/dL (3.4-5.0) Albumin/Globulin Ratio 0.7 (1.0-1.7) O2 Saturation 95 % (92-99) Arterial Blood pH 7.25 (7.35-7.45) Arterial Blood pCO2 at Patient Temp 33 mmHg (35-46) Arterial Blood pO2 at Patient Temp 96 mmHg (65-108) Arterial Blood HCO3 14 mmol/L (21-28) Arterial Blood Base Excess -12 mmol/L (-3-3) FiO2 32 Influenza Type A Antigen Negative (NEGATIVE) Influenza Type B Antigen Negative (NEGATIVE) Test 06/14/18 17:10 06/14/18 20:42 06/15/18 03:30 06/15/18 08:37 O2 Saturation 97 % (92-99) Arterial Blood pH 7.36 (7.35-7.45) Arterial Blood pCO2 at Patient Temp 36 mmHg (35-46) Arterial Blood pO2 at Patient Temp 115 mmHg (65-108) Arterial Blood HCO3 20 mmol/L (21-28) Arterial Blood Base Excess -5 mmol/L (-3-3) FiO2 40 Glucose (Fingerstick) 159 mg/dL (70-99) 135 mg/dL (70-99) White Blood Count 7.5 x10^3/uL (4.0-11.0) Red Blood Count 1.91 x10^6/uL (3.50-5.40) Hemoglobin 6.0 g/dL (12.0-15.5) Hematocrit 18.3 % (36.0-47.0) Mean Corpuscular Volume 96 fL (79-100) Mean Corpuscular Hemoglobin 32 pg (25-35) Mean Corpuscular Hemoglobin Concent 33 g/dL (31-37) Red Cell Distribution Width 13.9 % (11.5-14.5) Platelet Count 166 x10^3/uL (140-400) Neutrophils (%) (Auto) 79 % (31-73) Lymphocytes (%) (Auto) 13 % (24-48) Monocytes (%) (Auto) 7 % (0-9) Eosinophils (%) (Auto) 1 % (0-3) Basophils (%) (Auto) 1 % (0-3) Neutrophils # (Auto) 5.9 x10^3uL (1.8-7.7) Lymphocytes # (Auto) 0.9 x10^3/uL (1.0-4.8) Monocytes # (Auto) 0.5 x10^3/uL (0.0-1.1) Eosinophils # (Auto) 0.1 x10^3/uL (0.0-0.7) Basophils # (Auto) 0.0 x10^3/uL (0.0-0.2) Sodium Level 136 mmol/L (136-145) Potassium Level 5.2 mmol/L (3.5-5.1) Chloride Level 97 mmol/L (98-107) Carbon Dioxide Level 22 mmol/L (21-32) Anion Gap 17 (6-14) Blood Urea Nitrogen 84 mg/dL (7-20) Creatinine 11.1 mg/dL (0.6-1.0) Estimated GFR (Cockcroft-Gault) 3.5 Glucose Level 185 mg/dL (70-99) Calcium Level 7.3 mg/dL (8.5-10.1) Test 06/15/18 11:36 Glucose (Fingerstick) 159 mg/dL (70-99) Review All relevant outside records, renal labs, imaging studies, telemetry/EKG's were reviewed. JAIMEE MATIAS MD Jun 15, 2018 12:43
[2018-06-15] MEDS: amLODIPine BESYLATE 5 MG TABLET PO SCH (13:24)
[2018-06-15] MEDS ORDERED: IV NORMAL SALINE 1000ML BAG 1,000 ML IV PRN ×2 (13:46)
[2018-06-15] MEDS ORDERED: ALBUMIN HUMAN 25% 200 ML IV PRN (14:00)
[2018-06-15] MEDS ORDERED: ACETAMINOPHEN 500 MG TABLET PO PRN (14:00)
[2018-06-15] MEDS ORDERED: DIALYSIS PATIENT. MC PRN (14:00)
[2018-06-15] MEDS ORDERED: diphenhydrAMINE 50 MG/ML VIAL IV PRN ×2 (14:00)
--- NOTE | 2018-06-15 14:43 | NUR ---
SS following for discharge planning. SS reviewed pt chart. Pt is from home with spouse and a Christian. Pt currently requires oxygen and declined PT. Pt has a Tuesday, Tuesday, Tuesday dialysis chair time in the community and per notes has missed scheduled chair times. No discharge needs noted at this time. SS will continue to follow for pending discharge needs.
[2018-06-15 15:56] LABS: CHOLESTEROL/HDL RATIO 3.6
--- NOTE | 2018-06-15 16:19 | CARD ---
MR#: [id number] Date of Study: 06/15/2018 Ordering Physician: NABILA TOLEDO, Referring Physician: RAMON RO, Tech: Shanel Harley APPROVED REPORT EXAM: Two-dimensional and M-mode echocardiogram with Doppler and color Doppler. Other Information Quality : AverageHR: 89bpm INDICATION Congestive Heart Failure 2D DIMENSIONS Left Atrium(2D)4.0 (1.6-4.0cm)IVSd1.2 (0.7-1.1cm) Aortic Root(2D)2.7 (2.0-3.7cm)LVDd5.7 (3.9-5.9cm) LVOT Diameter2.0 (1.8-2.4cm)PWd1.4 (0.7-1.1cm) LVDs3.8 (2.5-4.0cm)FS (%) 32.9 % SV98.3 mlLVEF(%)60.6 (>50%) Aortic Valve AoV Peak Fritz.159.8cm/sAoV VTI42.9cm AO Peak GR.10.2mmHgLVOT VTI 18.16cm AO Mean GR.9mmHg Mitral Valve MV E Allllbgr124.6cm/sMV E Peak Gr.107mmHg MV DECEL [id number] A Sipnejoo85.4cm/s E/A Ratio1.4 TDI Lateral E' P. V8.62cm/sMedial E' P. V4.83cm/s E/Lateral E'12.9E/Medial E'23.1 Tricuspid Valve TR P. [id number]/sRAP ERDYOPYK9feZs TR Peak Gr.60tfZzOYSS65fiFa Pulmonary Vein S1 Xbngeplw37.0cm/sS2 Bxqmovnp52.30cm/s D2 Pgkjajkk33.3cm/s LEFT VENTRICLE The left ventricle is normal size. There is mild concentric left ventricular hypertrophy. The left ve ntricular systolic function is normal and the ejection fraction is within normal range. The Ejection Fraction is 50-55%. There is normal LV segmental wall motion. Transmitral Doppler flow pattern is Gra de II-pseudonormal filling dynamics. RIGHT VENTRICLE The right ventricle is mildly dilated. There is normal right ventricular wall thickness. The right ve ntricular systolic function is normal. ATRIA The left atrium size is normal. The right atrium size is normal. The interatrial septum is intact wit h no evidence for an atrial septal defect or patent foramen ovale as noted on 2-D or Doppler imaging. AORTIC VALVE The aortic valve is calcified but opens well. Doppler and Color Flow revealed no significant aortic r egurgitation. There is no significant aortic valvular stenosis. MITRAL VALVE The mitral valve is normal in structure and function. There is no evidence of mitral valve prolapse. There is no mitral valve stenosis. Doppler and Color-flow revealed trace to mild mitral regurgitation . TRICUSPID VALVE The tricuspid valve is normal in structure and function. Doppler and Color Flow revealed trace tricus pid regurgitation. There is no tricuspid valve stenosis. PULMONIC VALVE The pulmonic valve is not well visualized. Doppler and Color Flow revealed trace pulmonic valvular re gurgitation. GREAT VESSELS The aortic root is normal in size. The IVC is normal in size and collapses >50% with inspiration. PERICARDIAL EFFUSION There is no evidence of significant pericardial effusion. Critical Notification Critical Value: No <Conclusion> The left ventricle is normal size. The left ventricular systolic function is normal and the ejection fraction is within normal range. The Ejection Fraction is 50-55%. There is mild concentric left ventricular hypertrophy. There is no significant aortic valvular stenosis. Doppler and Color Flow revealed no significant aortic regurgitation. Doppler and Color-flow revealed trace to mild mitral regurgitation. Doppler and Color Flow revealed trace tricuspid regurgitation. Signed by : Fuentes Villeda MD Electronically Approved : 06/15/2018 16:18:49
--- NOTE | 2018-06-15 16:50 | PDOC ---
PROGRESS NOTES Chief Complaint Chief Complaint Acute hypoxic respiratory failure - on BIPAP with improvement. Follow recommendations from [employer] consultant. though this seems like CHF exacerbation from lack of ultrafiltration with no dialysis for a week ESRD on dialysis, missed one week - dialysis as per [employer] consultant. Counseled on compliance with her and her daughter. History of hyperkalemia - K 5.2, will monitor Anemia of ESRD - Hb of 7, she refuses transfusion as a Jehovah witness. Monitor dCHF - in acute exacerbation, cont BB, statin, ASA. Needs ultrafiltration. CAD history of CABG - stable, consult cardiology Hypertension - will monitor on meds Diabetes type 2 with hypoglycemic episodes- history of - reduce her home lantus and scheduled insulin Obesity, BMI 32 - counseled FEN - ADA renal diet PPX - Heparin FULL CODE ICU step-down for respiratory failure on BIPAP, 37 minutes of critical care time spent with patient and family. Will be inpatient at least 2 midnights. History of Present Illness History of Present Illness Patient with no acute events reported overnight, she is much better compared to admission. No complaints during my visit, says the bipap helped her with the respiratory distress, no increased work of breathing noted. Vitals Vitals Vital Signs Date Time Temp Pulse Resp B/P (MAP) Pulse Ox O2 Delivery O2 Flow Rate FiO2 06/15/18 16:02 Nasal Cannula 3.0 06/15/18 13:24 75 144/65 06/15/18 11:31 96 06/15/18 11:00 97.7 20 97.7 Physical Exam General: Alert, Cooperative, moderate distress Lungs: Clear, Other Abdomen: Normal bowel sounds, Soft, No tenderness, No hepatosplenomegaly, No masses Extremities: No clubbing, No cyanosis, Other (1+ edema, abdominal swelling) Labs LABS Laboratory Tests Test 06/14/18 17:10 06/14/18 20:42 06/15/18 03:30 06/15/18 08:37 O2 Saturation 97 % (92-99) Arterial Blood pH 7.36 (7.35-7.45) Arterial Blood pCO2 at Patient Temp 36 mmHg (35-46) Arterial Blood pO2 at Patient Temp 115 mmHg (65-108) Arterial Blood HCO3 20 mmol/L (21-28) Arterial Blood Base Excess -5 mmol/L (-3-3) FiO2 40 Glucose (Fingerstick) 159 mg/dL (70-99) 135 mg/dL (70-99) White Blood Count 7.5 x10^3/uL (4.0-11.0) Red Blood Count 1.91 x10^6/uL (3.50-5.40) Hemoglobin 6.0 g/dL (12.0-15.5) Hematocrit 18.3 % (36.0-47.0) Mean Corpuscular Volume 96 fL (79-100) Mean Corpuscular Hemoglobin 32 pg (25-35) Mean Corpuscular Hemoglobin Concent 33 g/dL (31-37) Red Cell Distribution Width 13.9 % (11.5-14.5) Platelet Count 166 x10^3/uL (140-400) Neutrophils (%) (Auto) 79 % (31-73) Lymphocytes (%) (Auto) 13 % (24-48) Monocytes (%) (Auto) 7 % (0-9) Eosinophils (%) (Auto) 1 % (0-3) Basophils (%) (Auto) 1 % (0-3) Neutrophils # (Auto) 5.9 x10^3uL (1.8-7.7) Lymphocytes # (Auto) 0.9 x10^3/uL (1.0-4.8) Monocytes # (Auto) 0.5 x10^3/uL (0.0-1.1) Eosinophils # (Auto) 0.1 x10^3/uL (0.0-0.7) Basophils # (Auto) 0.0 x10^3/uL (0.0-0.2) Sodium Level 136 mmol/L (136-145) Potassium Level 5.2 mmol/L (3.5-5.1) Chloride Level 97 mmol/L (98-107) Carbon Dioxide Level 22 mmol/L (21-32) Anion Gap 17 (6-14) Blood Urea Nitrogen 84 mg/dL (7-20) Creatinine 11.1 mg/dL (0.6-1.0) Estimated GFR (Cockcroft-Gault) 3.5 Glucose Level 185 mg/dL (70-99) Calcium Level 7.3 mg/dL (8.5-10.1) Triglycerides Level 133 mg/dL (0-150) Cholesterol Level 144 mg/dL (0-200) LDL Cholesterol, Calculated 77 mg/dL (0-100) VLDL Cholesterol, Calculated 27 mg/dL (0-40) Non-HDL Cholesterol Calculated 104 mg/dL (0-129) HDL Cholesterol 40 mg/dL (40-60) Cholesterol/HDL Ratio 3.6 Test 06/15/18 11:36 Glucose (Fingerstick) 159 mg/dL (70-99) Assessment and Plan Assessmemt and Plan Problems Medical Problems: (1) CHF (congestive heart failure) Status: Acute (2) ESRD (end stage renal disease) on dialysis Status: Acute (3) Hyperkalemia Status: Acute Comment Review of Relevant I have reviewed the following items fede (where applicable) has been applied. Labs Laboratory Tests Test 06/14/18 13:56 06/14/18 14:00 06/14/18 14:05 06/14/18 15:50 Glucose (Fingerstick) 295 mg/dL (70-99) White Blood Count 10.9 x10^3/uL (4.0-11.0) Red Blood Count 2.20 x10^6/uL (3.50-5.40) Hemoglobin 7.0 g/dL (12.0-15.5) Hematocrit 21.7 % (36.0-47.0) Mean Corpuscular Volume 99 fL (79-100) Mean Corpuscular Hemoglobin 32 pg (25-35) Mean Corpuscular Hemoglobin Concent 32 g/dL (31-37) Red Cell Distribution Width 14.0 % (11.5-14.5) Platelet Count 230 x10^3/uL (140-400) Neutrophils (%) (Auto) 71 % (31-73) Lymphocytes (%) (Auto) 17 % (24-48) Monocytes (%) (Auto) 8 % (0-9) Eosinophils (%) (Auto) 3 % (0-3) Basophils (%) (Auto) 1 % (0-3) Neutrophils # (Auto) 7.8 x10^3uL (1.8-7.7) Lymphocytes # (Auto) 1.8 x10^3/uL (1.0-4.8) Monocytes # (Auto) 0.9 x10^3/uL (0.0-1.1) Eosinophils # (Auto) 0.4 x10^3/uL (0.0-0.7) Basophils # (Auto) 0.1 x10^3/uL (0.0-0.2) Segmented Neutrophils % 71 % (35-66) Lymphocytes % 12 % (24-48) Monocytes % 11 % (0-10) Eosinophils % 5 % (0-5) Basophils % 1 % (0-3) Myelocytes % % (0-0) Platelet Estimate Adequate (ADEQUATE) D-Dimer (Bree) 4.95 ug/mlFEU (0.00-0.50) Sodium Level 134 mmol/L (136-145) Potassium Level 5.2 mmol/L (3.5-5.1) Chloride Level 93 mmol/L (98-107) Carbon Dioxide Level 15 mmol/L (21-32) Anion Gap 26 (6-14) Blood Urea Nitrogen 78 mg/dL (7-20) Creatinine 10.7 mg/dL (0.6-1.0) Estimated GFR (Cockcroft-Gault) 3.7 BUN/Creatinine Ratio 7 (6-20) Glucose Level 344 mg/dL (70-99) Lactic Acid Level 7.2 mmol/L (0.4-2.0) Calcium Level 7.4 mg/dL (8.5-10.1) Total Bilirubin 0.4 mg/dL (0.2-1.0) Aspartate Amino Transf (AST/SGOT) 13 U/L (15-37) Alanine Aminotransferase (ALT/SGPT) 11 U/L (14-59) Alkaline Phosphatase 81 U/L (46-116) Troponin I Quantitative < 0.017 ng/mL (0.000-0.055) ZL-Fnc-B-Type Natriuretic Peptide > 21922 pg/mL (0-124) Total Protein 7.8 g/dL (6.4-8.2) Albumin 3.3 g/dL (3.4-5.0) Albumin/Globulin Ratio 0.7 (1.0-1.7) O2 Saturation 95 % (92-99) Arterial Blood pH 7.25 (7.35-7.45) Arterial Blood pCO2 at Patient Temp 33 mmHg (35-46) Arterial Blood pO2 at Patient Temp 96 mmHg (65-108) Arterial Blood HCO3 14 mmol/L (21-28) Arterial Blood Base Excess -12 mmol/L (-3-3) FiO2 32 Influenza Type A Antigen Negative (NEGATIVE) Influenza Type B Antigen Negative (NEGATIVE) Test 06/14/18 17:10 06/14/18 20:42 06/15/18 03:30 06/15/18 08:37 O2 Saturation 97 % (92-99) Arterial Blood pH 7.36 (7.35-7.45) Arterial Blood pCO2 at Patient Temp 36 mmHg (35-46) Arterial Blood pO2 at Patient Temp 115 mmHg (65-108) Arterial Blood HCO3 20 mmol/L (21-28) Arterial Blood Base Excess -5 mmol/L (-3-3) FiO2 40 Glucose (Fingerstick) 159 mg/dL (70-99) 135 mg/dL (70-99) White Blood Count 7.5 x10^3/uL (4.0-11.0) Red Blood Count 1.91 x10^6/uL (3.50-5.40) Hemoglobin 6.0 g/dL (12.0-15.5) Hematocrit 18.3 % (36.0-47.0) Mean Corpuscular Volume 96 fL (79-100) Mean Corpuscular Hemoglobin 32 pg (25-35) Mean Corpuscular Hemoglobin Concent 33 g/dL (31-37) Red Cell Distribution Width 13.9 % (11.5-14.5) Platelet Count 166 x10^3/uL (140-400) Neutrophils (%) (Auto) 79 % (31-73) Lymphocytes (%) (Auto) 13 % (24-48) Monocytes (%) (Auto) 7 % (0-9) Eosinophils (%) (Auto) 1 % (0-3) Basophils (%) (Auto) 1 % (0-3) Neutrophils # (Auto) 5.9 x10^3uL (1.8-7.7) Lymphocytes # (Auto) 0.9 x10^3/uL (1.0-4.8) Monocytes # (Auto) 0.5 x10^3/uL (0.0-1.1) Eosinophils # (Auto) 0.1 x10^3/uL (0.0-0.7) Basophils # (Auto) 0.0 x10^3/uL (0.0-0.2) Sodium Level 136 mmol/L (136-145) Potassium Level 5.2 mmol/L (3.5-5.1) Chloride Level 97 mmol/L (98-107) Carbon Dioxide Level 22 mmol/L (21-32) Anion Gap 17 (6-14) Blood Urea Nitrogen 84 mg/dL (7-20) Creatinine 11.1 mg/dL (0.6-1.0) Estimated GFR (Cockcroft-Gault) 3.5 Glucose Level 185 mg/dL (70-99) Calcium Level 7.3 mg/dL (8.5-10.1) Triglycerides Level 133 mg/dL (0-150) Cholesterol Level 144 mg/dL (0-200) LDL Cholesterol, Calculated 77 mg/dL (0-100) VLDL Cholesterol, Calculated 27 mg/dL (0-40) Non-HDL Cholesterol Calculated 104 mg/dL (0-129) HDL Cholesterol 40 mg/dL (40-60) Cholesterol/HDL Ratio 3.6 Test 06/15/18 11:36 Glucose (Fingerstick) 159 mg/dL (70-99) Laboratory Tests Test 06/14/18 17:10 06/14/18 20:42 06/15/18 03:30 06/15/18 08:37 O2 Saturation 97 % (92-99) Arterial Blood pH 7.36 (7.35-7.45) Arterial Blood pCO2 at Patient Temp 36 mmHg (35-46) Arterial Blood pO2 at Patient Temp 115 mmHg (65-108) Arterial Blood HCO3 20 mmol/L (21-28) Arterial Blood Base Excess -5 mmol/L (-3-3) FiO2 40 Glucose (Fingerstick) 159 mg/dL (70-99) 135 mg/dL (70-99) White Blood Count 7.5 x10^3/uL (4.0-11.0) Red Blood Count 1.91 x10^6/uL (3.50-5.40) Hemoglobin 6.0 g/dL (12.0-15.5) Hematocrit 18.3 % (36.0-47.0) Mean Corpuscular Volume 96 fL (79-100) Mean Corpuscular Hemoglobin 32 pg (25-35) Mean Corpuscular Hemoglobin Concent 33 g/dL (31-37) Red Cell Distribution Width 13.9 % (11.5-14.5) Platelet Count 166 x10^3/uL (140-400) Neutrophils (%) (Auto) 79 % (31-73) Lymphocytes (%) (Auto) 13 % (24-48) Monocytes (%) (Auto) 7 % (0-9) Eosinophils (%) (Auto) 1 % (0-3) Basophils (%) (Auto) 1 % (0-3) Neutrophils # (Auto) 5.9 x10^3uL (1.8-7.7) Lymphocytes # (Auto) 0.9 x10^3/uL (1.0-4.8) Monocytes # (Auto) 0.5 x10^3/uL (0.0-1.1) Eosinophils # (Auto) 0.1 x10^3/uL (0.0-0.7) Basophils # (Auto) 0.0 x10^3/uL (0.0-0.2) Sodium Level 136 mmol/L (136-145) Potassium Level 5.2 mmol/L (3.5-5.1) Chloride Level 97 mmol/L (98-107) Carbon Dioxide Level 22 mmol/L (21-32) Anion Gap 17 (6-14) Blood Urea Nitrogen 84 mg/dL (7-20) Creatinine 11.1 mg/dL (0.6-1.0) Estimated GFR (Cockcroft-Gault) 3.5 Glucose Level 185 mg/dL (70-99) Calcium Level 7.3 mg/dL (8.5-10.1) Triglycerides Level 133 mg/dL (0-150) Cholesterol Level 144 mg/dL (0-200) LDL Cholesterol, Calculated 77 mg/dL (0-100) VLDL Cholesterol, Calculated 27 mg/dL (0-40) Non-HDL Cholesterol Calculated 104 mg/dL (0-129) HDL Cholesterol 40 mg/dL (40-60) Cholesterol/HDL Ratio 3.6 Test 06/15/18 11:36 Glucose (Fingerstick) 159 mg/dL (70-99) Microbiology 06/14/18 Blood Culture - Preliminary, Resulted NO GROWTH AFTER 1 DAY Medications Current Medications Albuterol/ Ipratropium (Duoneb) 3 ml 1X ONCE NEB Last administered on at 14:10; Start 06/14/18 at 14:00; Stop 06/14/18 at 14:02; Status DC Furosemide (Lasix) 60 mg 1X ONCE IVP Last administered on 06/14/18at 15:14; Start 06/14/18 at 15:00; Stop 06/14/18 at 15:01; Status DC Insulin Human Regular (HumuLIN R VIAL) 10 unit 1X ONCE IV Last administered on 06/14/18at 17:04; Start 06/14/18 at 16:00; Stop 06/14/18 at 16:04; Status DC Acetaminophen (Tylenol) 650 mg PRN Q4HRS PRN PO FEVER; Start 06/14/18 at 17:00 ; Stop 06/15/18 at 16:59 Albuterol/ Ipratropium (Duoneb) 3 ml RTQID NEB Last administered on 06/14/18at 20:57; Start 06/14/18 at 20:00; Stop 06/15/18 at 19:59 Albuterol/ Ipratropium (Duoneb) 3 ml RTQID NEB Last administered on 06/15/18at 16:00; Start 06/15/18 at 08:00 Amlodipine Besylate (Norvasc) 5 mg DAILYWLUN PO Last administered on 06/15/18at 13:24; Start 06/15/18 at 12:00 Aspirin (Ecotrin) 81 mg DAILYWBKFT PO Last administered on 06/15/18at 08:47; Start 06/15/18 at 08:00 Atorvastatin Calcium (Lipitor) 80 mg QHS PO ; Start 06/15/18 at 21:00 Clonazepam (KlonoPIN) 0.5 mg PRN TID PRN PO ANXIETY / AGITATION; Start at 22:00 Clopidogrel Bisulfate (Plavix) 75 mg DAILY PO Last administered on 06/15/18at 08 :47; Start 06/15/18 at 09:00; Stop 06/15/18 at 15:34; Status DC Insulin Glargine (Lantus) 7 units QHS SQ Last administered on 06/14/18at 22:46; Start 06/14/18 at 22:30 Insulin Human Lispro (HumaLOG) 10 units TIDWMEALS SQ ; Start 06/15/18 at 08:00 Isosorbide Mononitrate (Imdur) 30 mg DAILY PO Last administered on 06/15/18at 08 :47; Start 06/15/18 at 09:00 Lisinopril (Prinivil) 20 mg DAILY PO Last administered on 06/15/18at 08:46; Start 06/15/18 at 09:00 Carvedilol (Coreg) 25 mg BIDWMEALS PO Last administered on 06/15/18at 08:46; Start 06/15/18 at 08:00 Iron Sucrose 200 mg/Sodium Chloride 110 ml @ 55 mls/hr 1X ONCE IV Last administered on 06/15/18at 04:53; Start 06/15/18 at 05:00; Stop 06/15/18 at 06:59 ; Status DC Sodium Chloride 1,000 ml @ 1,000 mls/hr Q1H PRN IV hypotension; Start 06/15/18 at 13:46; Stop 06/15/18 at 19:45 Albumin Human 200 ml @ 200 mls/hr 1X PRN PRN IV Hypotension; Start 06/15/18 at 14:00; Stop 06/15/18 at 19:59 Acetaminophen (Tylenol) 500 mg 1X PRN PRN PO MILD PAIN / TEMP; Start 06/15/18 at 14:00; Stop 06/16/18 at 13:59 Diphenhydramine HCl (Benadryl) 25 mg 1X PRN PRN IV ITCHING; Start 06/15/18 at 14:00; Stop 06/16/18 at 13:59 Diphenhydramine HCl (Benadryl) 25 mg 1X PRN PRN IV ITCHING; Start 06/15/18 at 14:00; Stop 06/16/18 at 13:59 Sodium Chloride 1,000 ml @ 400 mls/hr Q2H30M PRN IV PATENCY; Start 06/15/18 at 13:46; Stop 06/16/18 at 01:45 Info (PHARMACY MONITORING -- do not chart) 1 each PRN DAILY PRN MC SEE COMMENTS ; Start 06/15/18 at 14:00 Active Scripts Active Humalog (Insulin Lispro) 100 Unit/1 Ml Insuln.pen 10 Units SQ TIDWMEALS 30 Days Lantus Solostar (Insulin Glargine,Hum.rec.anlog) 100 Unit/1 Ml Insuln.pen 7 Units SQ QHS 30 Days Atorvastatin Calcium 40 Mg Tablet 80 Mg PO QHS Amlodipine Besylate 5 Mg Tablet 5 Mg PO DAILYWLUN Clopidogrel (Clopidogrel Bisulfate) 75 Mg Tablet 75 Mg PO DAILY Lisinopril 20 Mg Tablet 1 Tab PO DAILY Aspirin Ec (Aspirin) 81 Mg Tablet.dr 81 Mg PO DAILYWBKFT Reported Isosorbide Mononitrate Er (Isosorbide Mononitrate) 30 Mg Tab.er.24h 30 Mg PO DAILY Furosemide 40 Mg Tablet 40 Mg PO DAILY Carvedilol 25 Mg Tablet 25 Mg PO BIDWMEALS Clonazepam 0.5 Mg Tablet 0.5 Mg PO TID PRN Vitals/I & O Vital Sign - Last 24 Hours 06/14/18 06/14/18 06/14/18 06/14/18 16:47 17:00 18:09 19:41 Temp 98.0 98.0 Pulse 92 89 89 Resp 18 B/P (MAP) 150/66 (94) 117/52 (73) 139/64 (89) Pulse Ox 100 100 100 98 O2 Delivery BiPAP/CPAP BiPAP/CPAP Nasal Cannula Nasal Cannula O2 Flow Rate 3.0 3.0 06/14/18 06/14/18 06/14/18 06/14/18 20:00 20:40 20:50 23:00 Pulse Ox 91 98 98 O2 Delivery Nasal Cannula Nasal Cannula BiPAP/CPAP BiPAP/CPAP O2 Flow Rate 3.0 3.0 06/14/18 06/15/18 06/15/18 06/15/18 23:33 03:00 03:32 05:00 Temp 98.7 97.7 98.1 98.7 97.7 98.1 Pulse 92 81 73 Resp 30 22 20 B/P (MAP) 198/87 (124) 183/76 (111) 151/72 (98) Pulse Ox 100 97 100 100 O2 Delivery BiPAP/CPAP BiPAP/CPAP BiPAP/CPAP BiPAP/CPAP 06/15/18 06/15/18 06/15/18 06/15/18 05:15 05:35 05:48 06:09 Temp 98.1 98.0 98.0 98.1 98.0 98.0 Pulse 72 72 67 Resp 20 20 20 B/P (MAP) 146/66 (92) 167/74 (105) 153/70 (97) Pulse Ox 100 98 100 O2 Delivery BiPAP/CPAP BiPAP/CPAP BiPAP/CPAP BiPAP/CPAP 06/15/18 06/15/18 06/15/18 06/15/18 07:00 08:00 08:10 08:46 Temp 97.1 97.1 Pulse 84 96 Resp 24 B/P (MAP) 188/77 (114) 188/77 Pulse Ox 100 95 O2 Delivery BiPAP/CPAP Bi-pap BiPAP/CPAP 06/15/18 06/15/18 06/15/18 06/15/18 08:46 08:47 11:00 11:31 Temp 97.7 97.7 Pulse 96 96 74 Resp 20 B/P (MAP) 188/77 188/77 156/87 (110) Pulse Ox 96 96 O2 Delivery Nasal Cannula Nasal Cannula O2 Flow Rate 3.0 06/15/18 06/15/18 13:24 16:02 Pulse 75 B/P (MAP) 144/65 O2 Delivery Nasal Cannula O2 Flow Rate 3.0 Intake and Output 06/14/18 06/14/18 06/15/18 15:00 23:00 07:00 Intake Total 100 ml Output Total 150 ml Balance -50 ml LIUDMILA NEAL MD Jun 15, 2018 16:50
[2018-06-15] MEDS ORDERED: METOPROLOL TARTRATE 5 MG/5 ML VIAL. IVP PRN (20:30)
[2018-06-15] MEDS: ATORVASTATIN CALCIUM 40 MG TABLET. PO SCH (20:58)
[2018-06-15] MEDS: INSULIN GLARGINE 300 UNITS/3 ML INSULN.PEN. SQ SCH (21:03)
[2018-06-16 03:00] VITALS: BP 188/79
[2018-06-16 07:00] VITALS: BP 167/56
[2018-06-16] MEDS: IPRATRPIUM/ALBUTEROL 0.5/2.5MG 3 ML NEBU. NEB SCH ×6 (07:20→19:53)
[2018-06-16] MEDS: INSULIN LISPRO 300 UNITS/3 ML INSULN.PEN. SQ SCH ×3 (08:00→17:00)
[2018-06-16] MEDS ORDERED: IV NORMAL SALINE 1000ML BAG 1,000 ML IV PRN ×2 (08:15)
[2018-06-16] MEDS ORDERED: diphenhydrAMINE 50 MG/ML VIAL IV PRN ×2 (08:15)
[2018-06-16] MEDS ORDERED: ALBUMIN HUMAN 25% 200 ML IV PRN (08:15)
[2018-06-16] MEDS ORDERED: DIALYSIS PATIENT. MC PRN ×2 (08:15)
[2018-06-16] MEDS ORDERED: ACETAMINOPHEN 500 MG TABLET PO PRN (08:15)
--- NOTE | 2018-06-16 11:39 | PDOC ---
PROGRESS NOTES Chief Complaint Chief Complaint Acute hypoxic respiratory failure resolved ESRD on dialysis, missed one week - dialysis as per healthcare market consultant. Counseled on compliance with her and her daughter. History of hyperkalemia - K 5.2, will monitor Anemia of ESRD - Hb of 7, she refuses transfusion as a Jehovah witness. Monitor dCHF - in acute exacerbation, cont BB, statin, ASA. Needs ultrafiltration. CAD history of CABG - stable, consult cardiology Hypertension - will monitor on meds Diabetes type 2 with hypoglycemic episodes- history of - reduce her home lantus and scheduled insulin Obesity, BMI 32 - counseled ADA renal diet PPX - Heparin FULL CODE History of Present Illness History of Present Illness Discussed again her wishes of no transfusions patient denies chest pain no palpitations no shortness of breath and overall feels better. Her shortness of breath is definitely improved. She is being seen on dialysis Vitals Vitals Vital Signs Date Time Temp Pulse Resp B/P (MAP) Pulse Ox O2 Delivery O2 Flow Rate FiO2 06/16/18 11:28 99 Nasal Cannula 2.0 06/16/18 07:00 98.2 78 18 167/56 (93) 98.2 Physical Exam General: Alert, Cooperative, moderate distress Lungs: Clear, Other Abdomen: Normal bowel sounds, Soft, No tenderness, No hepatosplenomegaly, No masses Extremities: No clubbing, No cyanosis, Other (1+ edema, abdominal swelling) Labs LABS Laboratory Tests Test 06/15/18 16:20 06/15/18 17:39 06/15/18 20:35 06/16/18 07:35 Hepatitis B Surface Antigen Nonreactive (Nonreactive) Glucose (Fingerstick) 117 mg/dL (70-99) 252 mg/dL (70-99) 133 mg/dL (70-99) Assessment and Plan Assessmemt and Plan Problems Medical Problems: (1) CHF (congestive heart failure) Status: Acute (2) ESRD (end stage renal disease) on dialysis Status: Acute (3) Hyperkalemia Status: Acute Comment Review of Relevant I have reviewed the following items fede (where applicable) has been applied. Labs Laboratory Tests Test 06/14/18 13:56 06/14/18 14:00 06/14/18 14:05 06/14/18 15:50 Glucose (Fingerstick) 295 mg/dL (70-99) White Blood Count 10.9 x10^3/uL (4.0-11.0) Red Blood Count 2.20 x10^6/uL (3.50-5.40) Hemoglobin 7.0 g/dL (12.0-15.5) Hematocrit 21.7 % (36.0-47.0) Mean Corpuscular Volume 99 fL (79-100) Mean Corpuscular Hemoglobin 32 pg (25-35) Mean Corpuscular Hemoglobin Concent 32 g/dL (31-37) Red Cell Distribution Width 14.0 % (11.5-14.5) Platelet Count 230 x10^3/uL (140-400) Neutrophils (%) (Auto) 71 % (31-73) Lymphocytes (%) (Auto) 17 % (24-48) Monocytes (%) (Auto) 8 % (0-9) Eosinophils (%) (Auto) 3 % (0-3) Basophils (%) (Auto) 1 % (0-3) Neutrophils # (Auto) 7.8 x10^3uL (1.8-7.7) Lymphocytes # (Auto) 1.8 x10^3/uL (1.0-4.8) Monocytes # (Auto) 0.9 x10^3/uL (0.0-1.1) Eosinophils # (Auto) 0.4 x10^3/uL (0.0-0.7) Basophils # (Auto) 0.1 x10^3/uL (0.0-0.2) Segmented Neutrophils % 71 % (35-66) Lymphocytes % 12 % (24-48) Monocytes % 11 % (0-10) Eosinophils % 5 % (0-5) Basophils % 1 % (0-3) Myelocytes % % (0-0) Platelet Estimate Adequate (ADEQUATE) D-Dimer (Bree) 4.95 ug/mlFEU (0.00-0.50) Sodium Level 134 mmol/L (136-145) Potassium Level 5.2 mmol/L (3.5-5.1) Chloride Level 93 mmol/L (98-107) Carbon Dioxide Level 15 mmol/L (21-32) Anion Gap 26 (6-14) Blood Urea Nitrogen 78 mg/dL (7-20) Creatinine 10.7 mg/dL (0.6-1.0) Estimated GFR (Cockcroft-Gault) 3.7 BUN/Creatinine Ratio 7 (6-20) Glucose Level 344 mg/dL (70-99) Lactic Acid Level 7.2 mmol/L (0.4-2.0) Calcium Level 7.4 mg/dL (8.5-10.1) Total Bilirubin 0.4 mg/dL (0.2-1.0) Aspartate Amino Transf (AST/SGOT) 13 U/L (15-37) Alanine Aminotransferase (ALT/SGPT) 11 U/L (14-59) Alkaline Phosphatase 81 U/L (46-116) Troponin I Quantitative < 0.017 ng/mL (0.000-0.055) RO-Cny-R-Type Natriuretic Peptide > 15101 pg/mL (0-124) Total Protein 7.8 g/dL (6.4-8.2) Albumin 3.3 g/dL (3.4-5.0) Albumin/Globulin Ratio 0.7 (1.0-1.7) O2 Saturation 95 % (92-99) Arterial Blood pH 7.25 (7.35-7.45) Arterial Blood pCO2 at Patient Temp 33 mmHg (35-46) Arterial Blood pO2 at Patient Temp 96 mmHg (65-108) Arterial Blood HCO3 14 mmol/L (21-28) Arterial Blood Base Excess -12 mmol/L (-3-3) FiO2 32 Influenza Type A Antigen Negative (NEGATIVE) Influenza Type B Antigen Negative (NEGATIVE) Test 06/14/18 17:10 06/14/18 20:42 06/15/18 03:30 06/15/18 08:37 O2 Saturation 97 % (92-99) Arterial Blood pH 7.36 (7.35-7.45) Arterial Blood pCO2 at Patient Temp 36 mmHg (35-46) Arterial Blood pO2 at Patient Temp 115 mmHg (65-108) Arterial Blood HCO3 20 mmol/L (21-28) Arterial Blood Base Excess -5 mmol/L (-3-3) FiO2 40 Glucose (Fingerstick) 159 mg/dL (70-99) 135 mg/dL (70-99) White Blood Count 7.5 x10^3/uL (4.0-11.0) Red Blood Count 1.91 x10^6/uL (3.50-5.40) Hemoglobin 6.0 g/dL (12.0-15.5) Hematocrit 18.3 % (36.0-47.0) Mean Corpuscular Volume 96 fL (79-100) Mean Corpuscular Hemoglobin 32 pg (25-35) Mean Corpuscular Hemoglobin Concent 33 g/dL (31-37) Red Cell Distribution Width 13.9 % (11.5-14.5) Platelet Count 166 x10^3/uL (140-400) Neutrophils (%) (Auto) 79 % (31-73) Lymphocytes (%) (Auto) 13 % (24-48) Monocytes (%) (Auto) 7 % (0-9) Eosinophils (%) (Auto) 1 % (0-3) Basophils (%) (Auto) 1 % (0-3) Neutrophils # (Auto) 5.9 x10^3uL (1.8-7.7) Lymphocytes # (Auto) 0.9 x10^3/uL (1.0-4.8) Monocytes # (Auto) 0.5 x10^3/uL (0.0-1.1) Eosinophils # (Auto) 0.1 x10^3/uL (0.0-0.7) Basophils # (Auto) 0.0 x10^3/uL (0.0-0.2) Sodium Level 136 mmol/L (136-145) Potassium Level 5.2 mmol/L (3.5-5.1) Chloride Level 97 mmol/L (98-107) Carbon Dioxide Level 22 mmol/L (21-32) Anion Gap 17 (6-14) Blood Urea Nitrogen 84 mg/dL (7-20) Creatinine 11.1 mg/dL (0.6-1.0) Estimated GFR (Cockcroft-Gault) 3.5 Glucose Level 185 mg/dL (70-99) Calcium Level 7.3 mg/dL (8.5-10.1) Triglycerides Level 133 mg/dL (0-150) Cholesterol Level 144 mg/dL (0-200) LDL Cholesterol, Calculated 77 mg/dL (0-100) VLDL Cholesterol, Calculated 27 mg/dL (0-40) Non-HDL Cholesterol Calculated 104 mg/dL (0-129) HDL Cholesterol 40 mg/dL (40-60) Cholesterol/HDL Ratio 3.6 Test 06/15/18 11:36 06/15/18 16:20 06/15/18 17:39 06/15/18 20:35 Glucose (Fingerstick) 159 mg/dL (70-99) 117 mg/dL (70-99) 252 mg/dL (70-99) Hepatitis B Surface Antigen Nonreactive (Nonreactive) Test 06/16/18 07:35 Glucose (Fingerstick) 133 mg/dL (70-99) Laboratory Tests Test 06/15/18 16:20 06/15/18 17:39 06/15/18 20:35 06/16/18 07:35 Hepatitis B Surface Antigen Nonreactive (Nonreactive) Glucose (Fingerstick) 117 mg/dL (70-99) 252 mg/dL (70-99) 133 mg/dL (70-99) Microbiology 06/14/18 Blood Culture - Preliminary, Resulted NO GROWTH AFTER 1 DAY Medications Current Medications Albuterol/ Ipratropium (Duoneb) 3 ml 1X ONCE NEB Last administered on at 14:10; Start 06/14/18 at 14:00; Stop 06/14/18 at 14:02; Status DC Furosemide (Lasix) 60 mg 1X ONCE IVP Last administered on 06/14/18at 15:14; Start 06/14/18 at 15:00; Stop 06/14/18 at 15:01; Status DC Insulin Human Regular (HumuLIN R VIAL) 10 unit 1X ONCE IV Last administered on 06/14/18at 17:04; Start 06/14/18 at 16:00; Stop 06/14/18 at 16:04; Status DC Acetaminophen (Tylenol) 650 mg PRN Q4HRS PRN PO FEVER; Start 06/14/18 at 17:00 ; Stop 06/15/18 at 16:59; Status DC Albuterol/ Ipratropium (Duoneb) 3 ml RTQID NEB Last administered on 06/16/18at 11:28; Start 06/14/18 at 20:00; Stop 06/15/18 at 19:59; Status DC Albuterol/ Ipratropium (Duoneb) 3 ml RTQID NEB Last administered on 06/16/18at 07:20; Start 06/15/18 at 08:00 Amlodipine Besylate (Norvasc) 5 mg DAILYWLUN PO Last administered on 06/15/18at 13:24; Start 06/15/18 at 12:00 Aspirin (Ecotrin) 81 mg DAILYWBKFT PO Last administered on 06/15/18at 08:47; Start 06/15/18 at 08:00 Atorvastatin Calcium (Lipitor) 80 mg QHS PO Last administered on 06/15/18at 20: 58; Start 06/15/18 at 21:00 Clonazepam (KlonoPIN) 0.5 mg PRN TID PRN PO ANXIETY / AGITATION; Start at 22:00 Clopidogrel Bisulfate (Plavix) 75 mg DAILY PO Last administered on 06/15/18at 08 :47; Start 06/15/18 at 09:00; Stop 06/15/18 at 15:34; Status DC Insulin Glargine (Lantus) 7 units QHS SQ Last administered on 06/15/18at 21:03; Start 06/14/18 at 22:30 Insulin Human Lispro (HumaLOG) 10 units TIDWMEALS SQ ; Start 06/15/18 at 08:00 Isosorbide Mononitrate (Imdur) 30 mg DAILY PO Last administered on 06/15/18at 08 :47; Start 06/15/18 at 09:00 Lisinopril (Prinivil) 20 mg DAILY PO Last administered on 06/15/18at 08:46; Start 06/15/18 at 09:00 Carvedilol (Coreg) 25 mg BIDWMEALS PO Last administered on 06/15/18at 17:45; Start 06/15/18 at 08:00 Iron Sucrose 200 mg/Sodium Chloride 110 ml @ 55 mls/hr 1X ONCE IV Last administered on 06/15/18at 04:53; Start 06/15/18 at 05:00; Stop 06/15/18 at 06:59 ; Status DC Sodium Chloride 1,000 ml @ 1,000 mls/hr Q1H PRN IV hypotension; Start 06/15/18 at 13:46; Stop 06/15/18 at 19:45; Status DC Albumin Human 200 ml @ 200 mls/hr 1X PRN PRN IV Hypotension; Start 06/15/18 at 14:00; Stop 06/15/18 at 19:59; Status DC Acetaminophen (Tylenol) 500 mg 1X PRN PRN PO MILD PAIN / TEMP; Start 06/15/18 at 14:00; Stop 06/16/18 at 13:59 Diphenhydramine HCl (Benadryl) 25 mg 1X PRN PRN IV ITCHING; Start 06/15/18 at 14:00; Stop 06/16/18 at 13:59 Diphenhydramine HCl (Benadryl) 25 mg 1X PRN PRN IV ITCHING; Start 06/15/18 at 14:00; Stop 06/16/18 at 13:59 Sodium Chloride 1,000 ml @ 400 mls/hr Q2H30M PRN IV PATENCY; Start 06/15/18 at 13:46; Stop 06/16/18 at 01:45; Status DC Info (PHARMACY MONITORING -- do not chart) 1 each PRN DAILY PRN MC SEE COMMENTS ; Start 06/15/18 at 14:00 Metoprolol Tartrate (Lopressor Vial) 5 mg PRN Q6HRS PRN IVP HYPERTENSION, SEE COMMENTS; Start 06/15/18 at 20:30 Sodium Chloride 1,000 ml @ 1,000 mls/hr Q1H PRN IV hypotension; Start 06/16/18 at 08:15; Stop 06/16/18 at 14:14 Albumin Human 200 ml @ 200 mls/hr 1X PRN PRN IV Hypotension; Start 06/16/18 at 08:15; Stop 06/16/18 at 14:14 Acetaminophen (Tylenol) 500 mg 1X PRN PRN PO MILD PAIN / TEMP; Start 06/16/18 at 08:15; Stop 06/17/18 at 08:14 Diphenhydramine HCl (Benadryl) 25 mg 1X PRN PRN IV ITCHING; Start 06/16/18 at 08:15; Stop 06/17/18 at 08:14 Diphenhydramine HCl (Benadryl) 25 mg 1X PRN PRN IV ITCHING; Start 06/16/18 at 08:15; Stop 06/17/18 at 08:14 Sodium Chloride 1,000 ml @ 400 mls/hr Q2H30M PRN IV PATENCY; Start 06/16/18 at 08:15; Stop 06/16/18 at 20:14 Info (PHARMACY MONITORING -- do not chart) 1 each PRN DAILY PRN MC SEE COMMENTS ; Start 06/16/18 at 08:15; Stop 06/16/18 at 08:25; Status DC Info (PHARMACY MONITORING -- do not chart) 1 each PRN DAILY PRN MC SEE COMMENTS ; Start 06/16/18 at 08:15; Stop 06/16/18 at 08:25; Status DC Active Scripts Active Humalog (Insulin Lispro) 100 Unit/1 Ml Insuln.pen 10 Units SQ TIDWMEALS 30 Days Lantus Solostar (Insulin Glargine,Hum.rec.anlog) 100 Unit/1 Ml Insuln.pen 7 Units SQ QHS 30 Days Atorvastatin Calcium 40 Mg Tablet 80 Mg PO QHS Amlodipine Besylate 5 Mg Tablet 5 Mg PO DAILYWLUN Clopidogrel (Clopidogrel Bisulfate) 75 Mg Tablet 75 Mg PO DAILY Lisinopril 20 Mg Tablet 1 Tab PO DAILY Aspirin Ec (Aspirin) 81 Mg Tablet. 81 Mg PO DAILYWBKFT Reported Isosorbide Mononitrate Er (Isosorbide Mononitrate) 30 Mg Tab.er.24h 30 Mg PO DAILY Furosemide 40 Mg Tablet 40 Mg PO DAILY Carvedilol 25 Mg Tablet 25 Mg PO BIDWMEALS Clonazepam 0.5 Mg Tablet 0.5 Mg PO TID PRN Vitals/I & O Vital Sign - Last 24 Hours 06/15/18 06/15/18 06/15/18 06/15/18 13:24 16:02 17:45 19:32 Temp 98.5 98.5 Pulse 75 98 85 Resp 17 B/P (MAP) 144/65 184/77 203/86 (125) Pulse Ox 100 O2 Delivery Nasal Cannula Nasal Cannula O2 Flow Rate 3.0 3.0 06/15/18 06/15/18 06/15/18 06/15/18 20:00 20:08 20:17 20:57 Pulse 90 83 B/P (MAP) 196/82 (120) 176/75 (108) Pulse Ox 98 O2 Delivery Nasal Cannula Nasal Cannula O2 Flow Rate 3.0 3.0 06/15/18 06/16/18 06/16/18 06/16/18 23:20 03:00 07:00 07:20 Temp 98.3 99.1 98.2 98.3 99.1 98.2 Pulse 86 79 78 Resp 19 19 18 B/P (MAP) 181/78 (112) 188/79 (115) 167/56 (93) Pulse Ox 100 100 100 98 O2 Delivery Nasal Cannula Nasal Cannula Nasal Cannula Nasal Cannula O2 Flow Rate 3.0 3.0 3.0 3.0 06/16/18 06/16/18 08:00 11:28 Pulse Ox 99 O2 Delivery Nasal Cannula Nasal Cannula O2 Flow Rate 2.0 2.0 Intake and Output 06/15/18 06/15/18 06/16/18 15:00 23:00 07:00 Intake Total 200 ml Output Total 200 ml 550 ml Balance -200 ml -350 ml LIUDMILA NEAL MD Jun 16, 2018 11:39
--- NOTE | 2018-06-16 12:11 | PDOC ---
SUBJECTIVE ROS Seen on HD, no complaints, concerns OBJECTIVE Vital Signs Vital Signs Date Time Temp Pulse Resp B/P (MAP) Pulse Ox O2 Delivery O2 Flow Rate FiO2 06/16/18 11:28 99 Nasal Cannula 2.0 06/16/18 07:00 98.2 78 18 167/56 (93) 98.2 I & 0 Intake and Output 06/16/18 06:59 Intake Total 200 ml Output Total 750 ml Balance -550 ml Intake Oral 200 ml Output Urine Total 750 ml # Bowel Movements 1 PHYSICAL EXAM Physical Exam HEENT: OM moist NECK: Supple. 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 Hyperkalemia- non complaince No labs today Acute hypoxic respiratory failure On RA Acute on Chr CHF HTN- Antihypertensives Card managing COMMENT/RELEVANT DATA Meds Current Medications Medications (Trade) Dose Ordered Sig/[place] Start Time Stop Time Status Last Admin Dose Admin Acetaminophen (Tylenol) 500 mg 1X PRN PRN 06/16/18 08:15 06/17/18 08:14 Albumin Human 200 ml @ 200 mls/hr 1X PRN PRN 06/16/18 08:15 06/16/18 14:14 Albuterol/ Ipratropium (Duoneb) 3 ml RTQID 06/15/18 08:00 06/16/18 07:20 3 ML Amlodipine Besylate (Norvasc) 5 mg DAILYWLUN 06/15/18 12:00 06/15/18 13:24 5 MG Aspirin (Ecotrin) 81 mg DAILYWBKFT 06/15/18 08:00 06/15/18 08:47 81 MG Atorvastatin Calcium (Lipitor) 80 mg QHS 06/15/18 21:00 06/15/18 20:58 80 MG Carvedilol (Coreg) 25 mg BIDWMEALS 06/15/18 08:00 06/15/18 17:45 25 MG Clonazepam (KlonoPIN) 0.5 mg PRN TID PRN 06/14/18 22:00 Clopidogrel Bisulfate (Plavix) 75 mg DAILY 06/15/18 09:00 06/15/18 15:34 DC 06/15/18 08:47 75 MG Diphenhydramine HCl (Benadryl) 25 mg 1X PRN PRN 06/16/18 08:15 06/17/18 08:14 Furosemide (Lasix) 60 mg 1X ONCE 06/14/18 15:00 06/14/18 15:01 DC 06/14/18 15:14 60 MG Info (PHARMACY MONITORING -- do not chart) 1 each PRN DAILY PRN 06/16/18 08:15 06/16/18 08:25 DC Insulin Glargine (Lantus) 7 units QHS 06/14/18 22:30 06/15/18 21:03 7 UNITS Insulin Human Lispro (HumaLOG) 10 units TIDWMEALS 06/15/18 08:00 Insulin Human Regular (HumuLIN R VIAL) 10 unit 1X ONCE 06/14/18 16:00 06/14/18 16:04 DC 06/14/18 17:04 10 UNIT Iron Sucrose 200 mg/Sodium Chloride 110 ml @ 55 mls/hr 1X ONCE 06/15/18 05:00 06/15/18 06:59 DC 06/15/18 04:53 55 MLS/HR Isosorbide Mononitrate (Imdur) 30 mg DAILY 06/15/18 09:00 06/15/18 08:47 30 MG Lisinopril (Prinivil) 20 mg DAILY 06/15/18 09:00 06/15/18 08:46 20 MG Metoprolol Tartrate (Lopressor Vial) 5 mg PRN Q6HRS PRN 06/15/18 20:30 Sodium Chloride 1,000 ml @ 400 mls/hr Q2H30M PRN 06/16/18 08:15 06/16/18 20:14 Lab Laboratory Tests Test 06/15/18 16:20 06/15/18 17:39 06/15/18 20:35 06/16/18 07:35 Hepatitis B Surface Antigen Nonreactive (Nonreactive) Glucose (Fingerstick) 117 mg/dL (70-99) 252 mg/dL (70-99) 133 mg/dL (70-99) Results All relevant outside records, renal labs, imaging studies, telemetry/EKG's were reviewed. JAIMEE MATIAS MD Jun 16, 2018 12:11
--- NOTE | 2018-06-16 12:31 | PDOC ---
Provider Note Provider Note Pt not seen. In dialysis WENDY SANDOVAL MD Jun 16, 2018 12:31
[2018-06-16] MEDS: ASPIRIN ENTERIC COATED 81 MG TABLET.DR. PO SCH (12:51)
[2018-06-16] MEDS: CARVEDILOL 12.5 MG TABLET. PO SCH ×2 (12:53→16:55)
[2018-06-16] MEDS: LISINOPRIL 20 MG TABLET PO SCH (12:54)
[2018-06-16] MEDS: amLODIPine BESYLATE 5 MG TABLET PO SCH (12:54)
[2018-06-16] MEDS: ISOSORBIDE MONONITRATE ER 30 MG TAB.ER.24H PO SCH (12:54)
[2018-06-16 14:47] VITALS: BP 137/49
--- NOTE | 2018-06-16 15:06 | PDOC ---
CARDIO Progress Notes Date and Time Date of Service 06/16/2018 Time of Evaluation 1450 Subjective Subjective: No Chest Pain, No shortness of breath, No Palpitations Vitals Vitals Vital Signs Date Time Temp Pulse Resp B/P (MAP) Pulse Ox O2 Delivery O2 Flow Rate FiO2 06/16/18 14:47 99.1 83 18 137/49 (78) 98 Nasal Cannula 3.0 99.1 Weight Weight [ ] Input and Output Intake and Output Intake and Output 06/16/18 07:00 Intake Total 200 ml Output Total 750 ml Balance -550 ml Intake Oral 200 ml Output Urine Total 750 ml # Bowel Movements 1 Laboratory Labs Laboratory Tests Test 06/15/18 16:20 06/15/18 17:39 06/15/18 20:35 06/16/18 07:35 Hepatitis B Surface Antigen Nonreactive (Nonreactive) Glucose (Fingerstick) 117 mg/dL (70-99) 252 mg/dL (70-99) 133 mg/dL (70-99) Microbiology Micro Microbiology 06/14/18 Blood Culture - Preliminary, Resulted NO GROWTH AFTER 2 DAYS Physical Exam HEENT: Neck Supple W Full Motion Chest: Symmetric LUNGS: Clear to Auscultation Heart: S1S2, RRR (SR) Abdomen: Soft N/T Extremities: No Calf Tenderness Neurology: alert, oriented, follow commands Assessment Assessment 1. Acute respiratory failure in the setting of a/c HF and anemia. SOA better. 2. Acute on chronic combined systolic/diastolic heart failure; secondary to noncompliance with HD. EF and WM 3. ESRD on HD; uremic, hyperkalemia. Missed HD Tuesday and Tuesday 4. Anemia; hgb 6.0. Does not accept blood products. Jehovah witness. Post iron transfusion 5. Atypical CP: anemia, CHF contributing 6. Accelerated HTN: improving 7. Lactic acidosis 8. Persistent noncompliance secondary to financial constraints. 9. CAD: PCI/stent to RCA, diffuse disease to LCx and LAD 06/2015 10. Hx of ICM; LVEF previously 25%. Most recent echo showed LV recovery with an EF of 55-60% 11. Hyperlipidemia; statin Recommendations 1. Limited options as her scientology belief impeding transfusion and persistent noncompliance with HD prompts frequent hospital admission. Continue with secondary prevention if pt complies 2. If no obvious bleed and Hgb is better then may resume 81 mg ECASA. No plavix at this time 3. Will follow along peripherally KEIRY MARTINI APRN Jun 16, 2018 15:06
[2018-06-16 19:10] VITALS: BP 130/60
[2018-06-16] MEDS: ATORVASTATIN CALCIUM 40 MG TABLET. PO SCH (20:12)
[2018-06-16] MEDS: INSULIN GLARGINE 300 UNITS/3 ML INSULN.PEN. SQ SCH (21:39)
[2018-06-16 23:00] VITALS: BP 147/89
[2018-06-17 03:45] VITALS: BP 144/44
[2018-06-17 07:00] VITALS: BP 127/40
--- NOTE | 2018-06-17 07:01 | PDOC ---
PULMONARY PROGRESS NOTES Subjective doesnt speak kazakh, her daughter at bedside, sob better, no cough or pain, not on 02 or cpap at home. on now, didnt use bipap Vitals Vital Signs Date Time Temp Pulse Resp B/P (MAP) Pulse Ox O2 Delivery O2 Flow Rate FiO2 06/17/18 03:45 98.1 72 20 144/44 (77) 96 Nasal Cannula 2.0 98.1 ROS: No Nausea General: Alert, No acute distress HEENT: Other (nc at perrl) Lungs: Crackles, Other Cardiovascular: S1, S2 Abdomen: Soft, Non-tender Neuro Exam: Alert Extremities: Other Skin: Warm Labs Laboratory Tests Test 06/15/18 08:37 06/15/18 11:36 06/15/18 16:20 06/15/18 17:39 Glucose (Fingerstick) 135 mg/dL (70-99) 159 mg/dL (70-99) 117 mg/dL (70-99) Hepatitis B Surface Antigen Nonreactive (Nonreactive) Test 06/15/18 20:35 06/16/18 07:35 06/16/18 16:47 06/16/18 20:41 Glucose (Fingerstick) 252 mg/dL (70-99) 133 mg/dL (70-99) 319 mg/dL (70-99) 154 mg/dL (70-99) Laboratory Tests Test 06/16/18 07:35 06/16/18 16:47 06/16/18 20:41 Glucose (Fingerstick) 133 mg/dL (70-99) 319 mg/dL (70-99) 154 mg/dL (70-99) Medications Active Scripts Medications Dose Route/Sig Max Daily Dose Days Date Category Isosorbide Mononitrate Er (Isosorbide Mononitrate) 30 Mg Tab.er.24h 30 Mg PO DAILY 06/14/18 Reported Furosemide 40 Mg Tablet 40 Mg PO DAILY 06/14/18 Reported Carvedilol 25 Mg Tablet 25 Mg PO BIDWMEALS 06/14/18 Reported Clonazepam 0.5 Mg Tablet 0.5 Mg PO TID PRN 06/14/18 Reported Humalog (Insulin Lispro) 100 Unit/1 Ml Insuln.pen 10 Units SQ TIDWMEALS 30 03/31/18 Rx Lantus Solostar (Insulin Glargine,Hum.rec.anlog) 100 Unit/1 Ml Insuln.pen 7 Units SQ QHS 30 03/31/18 Rx Atorvastatin Calcium 40 Mg Tablet 80 Mg PO QHS 03/31/18 Rx Amlodipine Besylate 5 Mg Tablet 5 Mg PO DAILYWLUN 03/31/18 Rx Clopidogrel (Clopidogrel Bisulfate) 75 Mg Tablet 75 Mg PO DAILY 03/31/18 Rx Lisinopril 20 Mg Tablet 1 Tab PO DAILY 03/31/18 Rx Aspirin Ec (Aspirin) 81 Mg Tablet. 81 Mg PO DAILYWBKFT 07/23/17 Rx Impression . IMPRESSION: 1. Acute hypoxic respiratory failure secondary to multifactorial etiologies including combination of acute congestive heart failure and [id number] anemia. 2. End-stage renal disease, missed dialysis on Tuesday and Tuesday, as result now in congestive heart failure. 3. Dyspnea secondary to congestive heart failure. 4. No clinical evidence of pneumonia. 5. obesity, snoring, prob PRITI Plan . RECOMMENDATIONS: 1. HD per nephro 2. 02 titration 3. Jehovah witness declined transfusion 4. bronchodilators. 5. D-dimer was high, but is a nonspecific finding. 6. PSG as out pt Discussed with RN, pt's daughter, POONAM Morrison MD Jun 17, 2018 07:01
[2018-06-17] MEDS: IPRATRPIUM/ALBUTEROL 0.5/2.5MG 3 ML NEBU. NEB SCH (07:54)
[2018-06-17] MEDS: INSULIN LISPRO 300 UNITS/3 ML INSULN.PEN. SQ SCH (08:35)
[2018-06-17] MEDS: LISINOPRIL 20 MG TABLET PO SCH (08:41)
[2018-06-17] MEDS: ASPIRIN ENTERIC COATED 81 MG TABLET.DR. PO SCH (08:41)
[2018-06-17] MEDS: CARVEDILOL 12.5 MG TABLET. PO SCH (08:41)
[2018-06-17] MEDS: ISOSORBIDE MONONITRATE ER 30 MG TAB.ER.24H PO SCH (08:41)
[2018-06-17] MEDS ORDERED: AMLO5TAB10 PO (09:52)
[2018-06-17] MEDS ORDERED: CLON0.5T11 PO (09:52)
[2018-06-17] MEDS ORDERED: ISOS30TA4 PO (09:52)
[2018-06-17] MEDS ORDERED: LISI-334 PO (09:52)
[2018-06-17] MEDS ORDERED: CARV25TA2 PO (09:52)
[2018-06-17] MEDS ORDERED: INSU100I13 SQ (09:52)
[2018-06-17] MEDS ORDERED: ASPI-612 PO (09:52)
[2018-06-17] MEDS ORDERED: FURO40TA4 PO (09:52)
[2018-06-17] MEDS ORDERED: CLOP75TA PO (09:52)
[2018-06-17] MEDS ORDERED: ATOR40TA59 PO (09:52)
[2018-06-17] MEDS ORDERED: INSU100I11 SQ (09:52)
--- NOTE | 2018-06-17 10:07 | PDOC3 ---
Discharge Summary Visit Information Date of Admission: Jun 14, 2018 Date of Discharge: Jun 17, 2018 Admitting Diagnosis: Hyperkalemia/ ESRD on HD with non adherence Final Diagnosis Problems Medical Problems: (1) CHF (congestive heart failure) Status: Acute (2) ESRD (end stage renal disease) on dialysis Status: Acute (3) Hyperkalemia Status: Acute Brief Hospital Course Allergies Allergies Coded Allergies Type Severity Reaction Last Updated Verified No Known Drug Allergies 11/28/17 No Vital Signs Vital Signs Date Time Temp Pulse Resp B/P (MAP) Pulse Ox O2 Delivery O2 Flow Rate FiO2 06/17/18 08:41 68 127/40 06/17/18 07:55 100 Nasal Cannula 2.0 06/17/18 07:00 98.6 18 98.6 Lab Results Laboratory Tests Test 06/15/18 11:36 06/15/18 16:20 06/15/18 17:39 06/15/18 20:35 Glucose (Fingerstick) 159 mg/dL (70-99) 117 mg/dL (70-99) 252 mg/dL (70-99) Hepatitis B Surface Antigen Nonreactive (Nonreactive) Test 06/16/18 07:35 06/16/18 16:47 06/16/18 20:41 06/17/18 07:24 Glucose (Fingerstick) 133 mg/dL (70-99) 319 mg/dL (70-99) 154 mg/dL (70-99) 166 mg/dL (70-99) Laboratory Tests Test 06/16/18 16:47 06/16/18 20:41 06/17/18 07:24 Glucose (Fingerstick) 319 mg/dL (70-99) 154 mg/dL (70-99) 166 mg/dL (70-99) Brief Hospital Course Ms. Varela is a 63 old Maori-speaking female known to us w/ PMHx ESRD Tuesday and missed one and half weeks worth of dialysis, last dialysis was here in the hospital. She has been short of breath, O2 saturations in the 70s per EMS Came in hypoxic and we have placed her on BIPAP 12/5 40% FiO2. Lactate 7.4. Hb 7. pH 7.25 on ABG with PCO2 33. Prognosis is poor because of noncompliance. Daughter always at bedside and have explained multiple times regarding her situation, they do not wish to use the chicken hanger phone and have requested slovenian speaking staff. Admitted to [facility] on BIPAP Patient responded well to the Bipap and also from her dialysis treatment, She is a [employer] witness and she refuses blood transfusion. Patient received iron infusion, her wishes not to received blood transfusion were honored, no further cbc check were done since she already has a depleted HB of 6 on our last check. No evidence of bleeding. REassurance provided. Patient recovered from her acute event and is in good spirits to be dismissed from the hospital sings and symtpoms of alarm were explained to the patient and her daughter. All concerns addressed to the best o fmy abilities,. Discharge Information Condition at Discharge: Improved Follow Up: Weeks (primary care phyisican in one week) Disposition/Orders: D/C to Home Scheduled Amlodipine Besylate (Amlodipine Besylate) 5 Mg Tablet, 5 MG PO DAILYWLUN for htn for 30 Days, #30 Ref 0 Prescribed by: LIUDMILA NEAL MD on 06/17/18951 Aspirin (Aspirin Ec) 81 Mg Tablet.dr, 81 MG PO DAILYWBKFT for antiplatelet for 30 Days, #30 Ref 0 Prescribed by: LIUDMILA NEAL MD on 06/17/18951 Atorvastatin Calcium (Atorvastatin Calcium) 40 Mg Tablet, 80 MG PO QHS for hld for 30 Days, #60 Ref 0 Prescribed by: LIUDMILA NEAL MD on 06/17/18951 Carvedilol (Carvedilol) 25 Mg Tablet, 25 MG PO BIDWMEALS for CARDIAC for 30 Days , #60 Prescribed by: LIUDMILA NEAL MD on 06/17/18951 Clopidogrel Bisulfate (Clopidogrel) 75 Mg Tablet, 75 MG PO DAILY for cad for 30 Days, #30 Ref 0 Prescribed by: LIUDMILA NEAL MD on 06/17/18951 Furosemide (Furosemide) 40 Mg Tablet, 40 MG PO DAILY for water pill for 30 Days , #30 Prescribed by: LIUDMILA NEAL MD on 06/17/18951 Insulin Glargine,Hum.rec.anlog (Lantus Solostar) 100 Unit/1 Ml Insuln.pen, 7 UNITS SQ QHS for dm for 30 Days, #1 Prescribed by: LIUDMILA NEAL MD on 06/17/18951 Insulin Lispro (Humalog) 100 Unit/1 Ml Insuln.pen, 10 UNITS SQ TIDWMEALS for dm2 for 30 Days, #1 Prescribed by: LIUDMILA NEAL MD on 06/17/18951 Isosorbide Mononitrate (Isosorbide Mononitrate Er) 30 Mg Tab.er.24h, 30 MG PO DAILY for blood pressure for 30 Days, #30 Prescribed by: LIUDMILA NEAL MD on 06/17/18951 Lisinopril (Lisinopril) 20 Mg Tablet, 1 TAB PO DAILY for htn for 30 Days, #30 Ref 0 Prescribed by: LIUDMILA NEAL MD on 06/17/18951 Scheduled PRN Clonazepam (Clonazepam) 0.5 Mg Tablet, 0.5 MG PO TID PRN for ANXIETY / AGITATION for 30 Days, #30 Prescribed by: LIUDMILA NEAL MD on 06/17/18951 LIUDMILA NEAL MD Jun 17, 2018 10:07
[2018-06-17 10:46] VITALS: BP 127/41
--- NOTE | 2018-06-17 11:05 | NUR ---
Patient discharged home. Discharge instructions given. PIV and heart monitor removed. Escorted patient in a wheelchair to the east entrance into a private vehicle.
[2018-08-09] MEDS ORDERED: HYDR-2869 PO (13:08)
== END 2018-06-17 11:05 | disposition home or self-care (01) | DRG 291 ==
LOC: ER 13:51 → 2 SOUTH 16:50
PROVIDERS: ADMIT Internal Medicine; ATTEND Internal Medicine
PROC: 5A09357 Assistance with Respiratory Ventilation, Less than 24 Consecutive Hours, Continuous Positive Airway Pressure (ICD-10-PCS; principal; 2018-06-14)
PROC: 5A09357 Assistance with Respiratory Ventilation, Less than 24 Consecutive Hours, Continuous Positive Airway Pressure (ICD-10-PCS; 2018-06-15)
PROC: 5A1D70Z Performance of Urinary Filtration, Intermittent, Less than 6 Hours Per Day (ICD-10-PCS; 2018-06-15)
PROC: 5A1D70Z Performance of Urinary Filtration, Intermittent, Less than 6 Hours Per Day (ICD-10-PCS; 2018-06-16)
PROC: 5A09357 Assistance with Respiratory Ventilation, Less than 24 Consecutive Hours, Continuous Positive Airway Pressure (ICD-10-PCS; 2018-06-16)
DX: I13.2 Hypertensive heart and chronic kidney disease with heart failure and with stage 5 chronic kidney disease, or end stage renal disease (principal); I50.43 Acute on chronic combined systolic (congestive) and diastolic (congestive) heart failure; J96.01 Acute respiratory failure with hypoxia; N18.6 End stage renal disease; E87.2 Acidosis; E78.00 Pure hypercholesterolemia, unspecified; E11.649 Type 2 diabetes mellitus with hypoglycemia without coma; E87.5 Hyperkalemia; I25.10 Atherosclerotic heart disease of native coronary artery without angina pectoris; E78.5 Hyperlipidemia, unspecified; K21.9 Gastro-esophageal reflux disease without esophagitis; E11.22 Type 2 diabetes mellitus with diabetic chronic kidney disease; E66.9 Obesity, unspecified; M19.90 Unspecified osteoarthritis, unspecified site; D63.1 Anemia in chronic kidney disease; I25.5 Ischemic cardiomyopathy; G47.33 Obstructive sleep apnea (adult) (pediatric); L40.9 Psoriasis, unspecified; Z91.19 Patient's noncompliance with other medical treatment and regimen; Z83.3 Family history of diabetes mellitus; Z82.49 Family history of ischemic heart disease and other diseases of the circulatory system; Z68.32 Body mass index [BMI] 32.0-32.9, adult; Z91.15 Patient's noncompliance with renal dialysis; Z99.2 Dependence on renal dialysis; Z95.5 Presence of coronary angioplasty implant and graft; Z95.1 Presence of aortocoronary bypass graft
CPT/HCPCS: 36415; 36600; 71045; 80048; 80053; 80061; 82805; 82962; 83605; 83880; 84484; 85007; 85025; 85379; 87040; 87340; 87804; 93005; 93306; 94640; 94660; 94760; 96374; 96375; J1756; J1815; J1940; J7620; 99285-25

== ENCOUNTER 2018-06-22 14:45 | Inpatient (IN) | payer OTHER ==
[~2018-06-22] VITALS: Ht 162.6 cm; Wt 85.7 kg
[2018-06-22 16:08] LABS: BASO % 1 % (0-3); EOS # 0.2 x10^3/uL (0.0-0.7); EOS % 5 % (0-3); LYMPH # 0.8 x10^3/uL (1.0-4.8); LYMPH % 20 % (24-48); MEAN CORPUSCULAR HEMOGLOBIN 32 pg (25-35); MEAN CORPUSCULAR HGB CONC 33 g/dL (31-37); MEAN CORPUSCULAR VOLUME 96 fL (79-100); MONO # 0.4 x10^3/uL (0.0-1.1); MONO % 10 % (0-9); NEUT # 2.7 x10^3uL (1.8-7.7); NEUT % 64 % (31-73); PLATELET COUNT 175 x10^3/uL (140-400); RED BLOOD COUNT 1.95 x10^6/uL (3.50-5.40); RED CELL DISTRIBUTION WIDTH 14.3 % (11.5-14.5); WHITE BLOOD COUNT 4.2 x10^3/uL (4.0-11.0)
[2018-06-22 16:12] LABS: HEMATOCRIT 18.8 % (36.0-47.0); HEMOGLOBIN 6.2 g/dL (12.0-15.5)
[2018-06-22 16:15] LABS: CALCIUM 6.9 mg/dL (8.5-10.1); CREATININE 11.5 mg/dL (0.6-1.0); GFR 3.4; POTASSIUM 5.9 mmol/L (3.5-5.1)
[2018-06-22 16:26] LABS: PROTHROMBIN TIME PATIENT 14.1 SEC (11.7-14.0)
[2018-06-22 16:27] LABS: ALBUMIN 3.1 g/dL (3.4-5.0); ALBUMIN/GLOBULIN RATIO 0.7 (1.0-1.7); TOTAL BILIRUBIN 0.3 mg/dL (0.2-1.0); TOTAL PROTEIN 7.5 g/dL (6.4-8.2)
[2018-06-22 16:30] LABS: PHOSPHORUS 9.8 mg/dL (2.6-4.7)
[2018-06-22 16:45] VITALS: BP 147/73
[2018-06-22] MEDS ORDERED: SODIUM POLYSTYRENE SULFONATE 15 GM/60 ML ORAL.SUSP. PO ONE (16:45)
[2018-06-22] MEDS ORDERED: ACETAMINOPHEN 325 MG TABLET. PO PRN ×2 (17:15→22:45)
[2018-06-22] MEDS ORDERED: ONDANSETRON PF 4 MG/2 ML VIAL. IV PRN (17:15)
[2018-06-22 19:00] VITALS: BP 140/49
[2018-06-22] MEDS ORDERED: CARV25TA2 PO (19:06)
--- NOTE | 2018-06-22 20:33 | NUR ---
Patient admission Pt arrived to the unit at approximately 1843 via gurney from the ED. Pt was oriented to room and unit routines. Patient information guide packet was explained and given to pt. Pt is Latvian speaking only, daughter at bedside to help translate. All questions and concerns regarding pt's POC was address and answered. Both pt and daughter verbalized understanding. Pt made comfortable in bed. Will continue to monitor pt closely.
--- NOTE | 2018-06-22 22:30 | PDOC1 ---
History and Physical Date of Admission Date of Admission DATE: 06/22/18 TIME: 22:30 Identification/Chief Complaint Chief Complaint Patient is a 63-year-old female who presents with report of shortness of breath/ respiratory distress.MISSED DIALYSIS X 3 THIS WEEK Past Medical History Past Medical History Past Medical History Cardiovascular: CAD, CHF, HTN, Hyperlipidemia Pulmonary: No pertinent hx, Other CENTRAL NERVOUS SYSTEM: Other GI: GERD Heme/Onc: No pertinent hx Hepatobiliary: No pertinent hx Psych: No pertinent hx Rheumatologic: No pertinent hx Infectious disease: No pertinent hx Renal/: Chronic renal failure Endocrine: Diabetes Past Surgical History Past Surgical History: Other Family History Family History: Diabetes, Heart Disease Social History ALCOHOL: none Drugs: None Cardiovascular: CAD, CHF, HTN, Hyperlipidemia Pulmonary: No pertinent hx, Other CENTRAL NERVOUS SYSTEM: Other GI: GERD Heme/Onc: No pertinent hx Hepatobiliary: No pertinent hx Psych: No pertinent hx Rheumatologic: No pertinent hx Infectious disease: No pertinent hx Renal/: Chronic renal failure Endocrine: Diabetes Past Surgical History Past Surgical History: Other Family History Family History: Heart Disease Social History Smoke: No ALCOHOL: none Drugs: None Current Problem List Problem List Problems Medical Problems: (1) Anemia Status: Acute (2) Hyperkalemia Status: Acute Current Medications Current Medications Current Medications Sodium Polystyrene Sulfonate (Kayexalate) 30 gm 1X ONCE PO Last administered on 06/22/18at 16:45; Start 06/22/18 at 16:45; Stop 06/22/18 at 16:46; Status DC Ondansetron HCl (Zofran) 4 mg PRN Q8HRS PRN IV NAUSEA/VOMITING; Start 06/22/18 at 17:15; Stop 06/23/18 at 17:14 Acetaminophen (Tylenol) 650 mg PRN Q4HRS PRN PO FEVER; Start 06/22/18 at 17:15 ; Stop 06/23/18 at 17:14 Pharmacy Consult (C.diff Med Screen By Rx) 1 each 1X ONCE [facility] ; Start 06/23/18 at 09:00; Stop 06/23/18 at 09:01; Status UNV Active Scripts Active Isosorbide Mononitrate Er (Isosorbide Mononitrate) 30 Mg Tab.er.24h 30 Mg PO DAILY 30 Days Furosemide 40 Mg Tablet 40 Mg PO DAILY 30 Days Clonazepam 0.5 Mg Tablet 0.5 Mg PO TID PRN 30 Days Humalog (Insulin Lispro) 100 Unit/1 Ml Insuln.pen 10 Units SQ TIDWMEALS 30 Days Lantus Solostar (Insulin Glargine,Hum.rec.anlog) 100 Unit/1 Ml Insuln.pen 7 Units SQ QHS 30 Days Atorvastatin Calcium 40 Mg Tablet 80 Mg PO QHS 30 Days Amlodipine Besylate 5 Mg Tablet 5 Mg PO DAILYWLUN 30 Days Clopidogrel (Clopidogrel Bisulfate) 75 Mg Tablet 75 Mg PO DAILY 30 Days Lisinopril 20 Mg Tablet 1 Tab PO DAILY 30 Days Aspirin Ec (Aspirin) 81 Mg Tablet.dr 81 Mg PO DAILYWBKFT 30 Days Reported Carvedilol 25 Mg Tablet 20 Mg PO BIDWMEALS Allergies Allergies: Coded Allergies: No Known Drug Allergies (Unverified , 11/28/17) ROS Review of System Review of Systems Review of Systems Constitutional: Denies fever [] Respiratory: Complains of cough and shortness of breath [] Cardiovascular: No additional information not addressed in HPI [] Integument: Denies rash or skin lesions [] 14 PT review of systems OTHERWISE NEG. General: YES: Fatigue, Malaise PSYCHOLOGICAL ROS: No: Anxiety, Behavioral Disorder, Concentration difficultie , Decreased libido, Depression, Disorientation, Hallucinations, Hostility, Irritablity, Memory difficulties, Mood Swings, Obsessive thoughts, Physical abuse, Sexual abuse, Sleep disturbances, Suicidal ideation, Other Eyes: No Blurry vision, No Decreased vision, No Double vision, No Dry eyes, No Excessive tearing, No Eye Pain, No Itchy Eyes, No Loss of vision, No Photophobia , No Scotomata, No Uses contacts, No Uses glasses, No Other HEENT: No: Heacaches, Visual Changes, Hearing change, Nasal congestion, Nasal discharge, Oral lesions, Sinus pain, Sore Throat, Epistaxis, Sneezing, Snoring, Tinnitus, Vertigo, Vocal changes, Other ALLERGY AND IMMUNOLOGY: No: Hives, Insect Bite Sensitivity, Itchy/Watery Eyes, Nasal Congestion, Post Nasal Drip, Seasonal Allergies, Other Hematological and Lymphatic: No: Bleeding Problems, Blood Clots, Blood Transfusions, Brusing, Night Sweats, Pallor, Swollen Lymph Nodes, Other ENDOCRINE: No: Breast Changes, Galactorrhea, Hair Pattern Changes, Hot Flashes , Malaise/lethargy, Mood Swings, Palpitations, Polydipsia/polyuria, Skin Changes , Temperature Intolerance, Unexpected Weight Changes, Other Respiratory: YES: Shortness of breath, SOB with excertion Cardiovascular: yes Orthopnea Musculoskeletal: Yes Joint Stiffness Neurological: No Behavorial Changes, No Bowel/Bladder ControlChng, No Confusion , No Dizziness, No Gait Disturbance, No Headaches, No Impaired Coord/balance, No Memory Loss, No Numbness/Tingling, No Seizures, No Speech Problems, No Tremors, No Visual Changes, No Weakness, No Other Physical Exam Physical Exam Physical Exam Physical Exam Constitutional: Well developed, well nourished, in MILD respiratory distress. [] HENT: Normocephalic, atraumatic, bilateral external ears normal, oropharynx moist, no oral exudates, nose normal. [] Eyes: PERRLA, EOMI, conjunctiva normal, no discharge. [] Neck: Normal range of motion, no tenderness, supple. [] Cardiovascular: Regular rate and rhythm[] Lungs & Thorax: Fairly good air movement is noted throughout with rales in the lung bases to auscultation [] Abdomen: Bowel sounds normal, soft, no tenderness. [] Skin: Warm, dry, no erythema, no rash. [] Extremities: No tenderness, no cyanosis, no clubbing, ROM intact, no edema. [] Neurologic: Awake and alert, no focal deficits noted. [] General: Oriented X3, Cooperative HEENT: PERRLA Breasts: Not examined Abdomen: Normal bowel sounds, Soft Rectal Exam: not examined PELVIC: Examination not indicated Extremities: No cyanosis Skin: No breakdown Neuro: Normal speech, Sensation intact, Cranial nerves 3-12 NL Psych/Mental Status: Mental status NL Vitals Vitals Vital Signs Date Time Temp Pulse Resp B/P (MAP) Pulse Ox O2 Delivery O2 Flow Rate FiO2 06/22/18 20:00 Room Air 06/22/18 19:00 97.5 66 20 140/49 (79) 96 97.5 Labs Labs Laboratory Tests Test 06/22/18 16:00 06/22/18 20:43 White Blood Count 4.2 x10^3/uL (4.0-11.0) Red Blood Count 1.95 x10^6/uL (3.50-5.40) Hemoglobin 6.2 g/dL (12.0-15.5) Hematocrit 18.8 % (36.0-47.0) Mean Corpuscular Volume 96 fL (79-100) Mean Corpuscular Hemoglobin 32 pg (25-35) Mean Corpuscular Hemoglobin Concent 33 g/dL (31-37) Red Cell Distribution Width 14.3 % (11.5-14.5) Platelet Count 175 x10^3/uL (140-400) Neutrophils (%) (Auto) 64 % (31-73) Lymphocytes (%) (Auto) 20 % (24-48) Monocytes (%) (Auto) 10 % (0-9) Eosinophils (%) (Auto) 5 % (0-3) Basophils (%) (Auto) 1 % (0-3) Neutrophils # (Auto) 2.7 x10^3uL (1.8-7.7) Lymphocytes # (Auto) 0.8 x10^3/uL (1.0-4.8) Monocytes # (Auto) 0.4 x10^3/uL (0.0-1.1) Eosinophils # (Auto) 0.2 x10^3/uL (0.0-0.7) Basophils # (Auto) 0.0 x10^3/uL (0.0-0.2) Prothrombin Time 14.1 SEC (11.7-14.0) Prothromb Time International Ratio 1.1 (0.8-1.1) Sodium Level 135 mmol/L (136-145) Potassium Level 5.9 mmol/L (3.5-5.1) Chloride Level 94 mmol/L (98-107) Carbon Dioxide Level 21 mmol/L (21-32) Anion Gap 20 (6-14) Blood Urea Nitrogen 121 mg/dL (7-20) Creatinine 11.5 mg/dL (0.6-1.0) Estimated GFR (Cockcroft-Gault) 3.4 BUN/Creatinine Ratio 11 (6-20) Glucose Level 274 mg/dL (70-99) Calcium Level 6.9 mg/dL (8.5-10.1) Phosphorus Level 9.8 mg/dL (2.6-4.7) Magnesium Level 2.6 mg/dL (1.8-2.4) Total Bilirubin 0.3 mg/dL (0.2-1.0) Aspartate Amino Transf (AST/SGOT) 9 U/L (15-37) Alanine Aminotransferase (ALT/SGPT) 10 U/L (14-59) Alkaline Phosphatase 107 U/L (46-116) Total Protein 7.5 g/dL (6.4-8.2) Albumin 3.1 g/dL (3.4-5.0) Albumin/Globulin Ratio 0.7 (1.0-1.7) Glucose (Fingerstick) 177 mg/dL (70-99) Laboratory Tests Test 06/22/18 16:00 06/22/18 20:43 White Blood Count 4.2 x10^3/uL (4.0-11.0) Red Blood Count 1.95 x10^6/uL (3.50-5.40) Hemoglobin 6.2 g/dL (12.0-15.5) Hematocrit 18.8 % (36.0-47.0) Mean Corpuscular Volume 96 fL (79-100) Mean Corpuscular Hemoglobin 32 pg (25-35) Mean Corpuscular Hemoglobin Concent 33 g/dL (31-37) Red Cell Distribution Width 14.3 % (11.5-14.5) Platelet Count 175 x10^3/uL (140-400) Neutrophils (%) (Auto) 64 % (31-73) Lymphocytes (%) (Auto) 20 % (24-48) Monocytes (%) (Auto) 10 % (0-9) Eosinophils (%) (Auto) 5 % (0-3) Basophils (%) (Auto) 1 % (0-3) Neutrophils # (Auto) 2.7 x10^3uL (1.8-7.7) Lymphocytes # (Auto) 0.8 x10^3/uL (1.0-4.8) Monocytes # (Auto) 0.4 x10^3/uL (0.0-1.1) Eosinophils # (Auto) 0.2 x10^3/uL (0.0-0.7) Basophils # (Auto) 0.0 x10^3/uL (0.0-0.2) Prothrombin Time 14.1 SEC (11.7-14.0) Prothromb Time International Ratio 1.1 (0.8-1.1) Sodium Level 135 mmol/L (136-145) Potassium Level 5.9 mmol/L (3.5-5.1) Chloride Level 94 mmol/L (98-107) Carbon Dioxide Level 21 mmol/L (21-32) Anion Gap 20 (6-14) Blood Urea Nitrogen 121 mg/dL (7-20) Creatinine 11.5 mg/dL (0.6-1.0) Estimated GFR (Cockcroft-Gault) 3.4 BUN/Creatinine Ratio 11 (6-20) Glucose Level 274 mg/dL (70-99) Calcium Level 6.9 mg/dL (8.5-10.1) Phosphorus Level 9.8 mg/dL (2.6-4.7) Magnesium Level 2.6 mg/dL (1.8-2.4) Total Bilirubin 0.3 mg/dL (0.2-1.0) Aspartate Amino Transf (AST/SGOT) 9 U/L (15-37) Alanine Aminotransferase (ALT/SGPT) 10 U/L (14-59) Alkaline Phosphatase 107 U/L (46-116) Total Protein 7.5 g/dL (6.4-8.2) Albumin 3.1 g/dL (3.4-5.0) Albumin/Globulin Ratio 0.7 (1.0-1.7) Glucose (Fingerstick) 177 mg/dL (70-99) VTE Prophylaxis Ordered VTE Prophylaxis Devices: Yes VTE Pharmacological Prophylaxi: Yes Assessment/Plan Assessment/Plan IMPRESSION 1. ESRD ON DIALYSIS 2. NONCOMPLIANCE 3. HX HTN 4. OBESITY 5. ACUTE VOLUME OVERLOAD 6. SEVERE ANEMIA PLAN ADMIT DIALYSIS CONSULT NEPHROLOGY HOME MEDS TRANSFUSE 1 UNIT PRBC'S TELE FULBRELIN,BIJAN Thomas MD Jun 22, 2018 22:30
[2018-06-22] MEDS ORDERED: diphenhydrAMINE ORAL ELIXIR 12.5 MG/5 ML ML PO PRN (22:45)
[2018-06-22] MEDS ORDERED: clonazePAM 0.5 MG TABLET PO PRN (22:45)
[2018-06-22 23:00] VITALS: BP 141/46
[2018-06-22] MEDS ORDERED: ATORVASTATIN CALCIUM 40 MG TABLET. PO SCH (23:00)
[2018-06-22] MEDS ORDERED: INSULIN GLARGINE 300 UNITS/3 ML INSULN.PEN. SQ SCH (23:00)
--- NOTE | 2018-06-23 00:49 | PHYS DOC ---
Past Medical History Past Medical History: CHF, Diabetes-Type II, High Cholesterol, Hypertension, NC , Renal Disease, Renal Failure, Other Additional Past Medical Histor: PSORASIS Past Surgical History: Angioplasty, Other Additional Past Surgical Histo: 2L fluid removed from lungs, CARDIAC CATH/ STENTS,DIALYSIS CATH R CHEST Alcohol Use: None Drug Use: None Adult General Chief Complaint Chief Complaint: DIALYSIS PROBLEM HPI HPI Patient is a 63 year old female who presents with a need for dialysis. The patient was supposed to have dialysis Tuesday and Tuesday. She did not go to those appointments. She was called by her pace analyst office yesterday and told to come to the emergency department. Her granddaughter stated that she was busy on Tuesday and Tuesday so her granddaughter was going to take her on Tuesday and Tuesday to make up for 3 appointments. I tried to explain to her that dialysis is not a matter of just picking any 3 days of the week but I'm not sure that she understood the process. Review of Systems Review of Systems Constitutional: Denies fever or chills [] Eyes: Denies change in visual acuity, redness, or eye pain [] HENT: Denies nasal congestion or sore throat [] Respiratory: Denies cough or shortness of breath [] Cardiovascular: No additional information not addressed in HPI [] GI: Denies abdominal pain, nausea, vomiting, bloody stools or diarrhea [] : Denies dysuria or hematuria [] Musculoskeletal: Denies back pain or joint pain [] Integument: Denies rash or skin lesions [] Neurologic: Denies headache, focal weakness or sensory changes [] Endocrine: Denies polyuria or polydipsia [] All other systems were reviewed and found to be within normal limits, except as documented in this note. Allergies Allergies Allergies Coded Allergies Type Severity Reaction Last Updated Verified No Known Drug Allergies 11/28/17 No Physical Exam Physical Exam Constitutional: Well developed, well nourished, no acute distress, non-toxic appearance. [] Cardiovascular:Heart rate regular rhythm, no murmur [] Lungs & Thorax: Bilateral breath sounds clear to auscultation [] Abdomen: Bowel sounds normal, soft, no tenderness, no masses, no pulsatile masses. [] Skin: Warm, dry, no erythema, no rash. [] Back: No tenderness, no CVA tenderness. [] Extremities: No tenderness, no cyanosis, no clubbing, ROM intact, no edema. [] Neurologic: Alert and oriented X 3, normal motor function, normal sensory function, no focal deficits noted. [] Psychologic: Affect normal, judgement normal, mood normal. [] Current Patient Data Vital Signs Vital Signs Date Time Temp Pulse Resp B/P (MAP) Pulse Ox O2 Delivery O2 Flow Rate FiO2 06/22/18 15:20 97.8 64 16 147/70 (95) 99 Room Air 97.8 Lab Values Laboratory Tests Test 06/22/18 16:00 White Blood Count 4.2 x10^3/uL (4.0-11.0) Red Blood Count 1.95 x10^6/uL (3.50-5.40) L Hemoglobin 6.2 g/dL (12.0-15.5) *L Hematocrit 18.8 % (36.0-47.0) *L Mean Corpuscular Volume 96 fL (79-100) Mean Corpuscular Hemoglobin 32 pg (25-35) Mean Corpuscular Hemoglobin Concent 33 g/dL (31-37) Red Cell Distribution Width 14.3 % (11.5-14.5) Platelet Count 175 x10^3/uL (140-400) Neutrophils (%) (Auto) 64 % (31-73) Lymphocytes (%) (Auto) 20 % (24-48) L Monocytes (%) (Auto) 10 % (0-9) H Eosinophils (%) (Auto) 5 % (0-3) H Basophils (%) (Auto) 1 % (0-3) Neutrophils # (Auto) 2.7 x10^3uL (1.8-7.7) Lymphocytes # (Auto) 0.8 x10^3/uL (1.0-4.8) L Monocytes # (Auto) 0.4 x10^3/uL (0.0-1.1) Eosinophils # (Auto) 0.2 x10^3/uL (0.0-0.7) Basophils # (Auto) 0.0 x10^3/uL (0.0-0.2) Prothrombin Time 14.1 SEC (11.7-14.0) H Prothrombin Time INR 1.1 (0.8-1.1) Sodium Level 135 mmol/L (136-145) L Potassium Level 5.9 mmol/L (3.5-5.1) H Chloride Level 94 mmol/L (98-107) L Carbon Dioxide Level 21 mmol/L (21-32) Anion Gap 20 (6-14) H Blood Urea Nitrogen 121 mg/dL (7-20) H Creatinine 11.5 mg/dL (0.6-1.0) H Estimated GFR (Cockcroft-Gault) 3.4 BUN/Creatinine Ratio 11 (6-20) Glucose Level 274 mg/dL (70-99) H Calcium Level 6.9 mg/dL (8.5-10.1) L Phosphorus Level 9.8 mg/dL (2.6-4.7) H Magnesium Level 2.6 mg/dL (1.8-2.4) H Total Bilirubin 0.3 mg/dL (0.2-1.0) Aspartate Amino Transferase (AST) 9 U/L (15-37) L Alanine Aminotransferase (ALT) 10 U/L (14-59) L Alkaline Phosphatase 107 U/L (46-116) Total Protein 7.5 g/dL (6.4-8.2) Albumin 3.1 g/dL (3.4-5.0) L Albumin/Globulin Ratio 0.7 (1.0-1.7) L Laboratory Tests 06/22/18 16:00 Laboratory Tests 06/22/18 16:00 EKG EKG [] Radiology/Procedures Radiology/Procedures [] Course & Med Decision Making Course & Med Decision Making Pertinent Labs and Imaging studies reviewed. (See chart for details) []The patient is being admitted to Dr. Lynn. Dr. Rosa has been consulted in the care of this patient and she will be dialyzed tomorrow. She was given Kayexalate in the emergency department. Dragon Disclaimer Dragon Disclaimer This electronic medical record was generated, in whole or in part, using a voice recognition dictation system. Departure Departure Impression: Primary Impression: Chronic renal failure Additional Impressions: Hyperkalemia Anemia Disposition: ADMITTED INPATIENT Condition: GUARDED Referrals: NO PCP (PCP) Problem Qualifiers JOSE ZAVALA APRN Jun 23, 2018 00:49
--- NOTE | 2018-06-23 02:35 | NUR ---
Dr. Lynn ordered 1 unit of PRBC to transfuse. RN educate pt again, and pt continue to refused d/t jainism reason. Dr. Lynn notified, orders cancelled. Will continue to monitor pt.
[2018-06-23] MEDS ORDERED: DEXTROSE 50% 25 GM / 50ML DISP.SYRIN. IV PRN (02:45)
[2018-06-23 03:00] VITALS: BP 154/50
[2018-06-23 06:10] LABS: BASO % 1 % (0-3); EOS # 0.3 x10^3/uL (0.0-0.7); EOS % 5 % (0-3); LYMPH # 0.9 x10^3/uL (1.0-4.8); LYMPH % 16 % (24-48); MEAN CORPUSCULAR HEMOGLOBIN 32 pg (25-35); MEAN CORPUSCULAR HGB CONC 34 g/dL (31-37); MEAN CORPUSCULAR VOLUME 97 fL (79-100); MONO # 0.4 x10^3/uL (0.0-1.1); MONO % 8 % (0-9); NEUT # 3.8 x10^3uL (1.8-7.7); NEUT % 70 % (31-73); PLATELET COUNT 196 x10^3/uL (140-400); RED BLOOD COUNT 1.86 x10^6/uL (3.50-5.40); RED CELL DISTRIBUTION WIDTH 14.4 % (11.5-14.5); WHITE BLOOD COUNT 5.5 x10^3/uL (4.0-11.0)
[2018-06-23 06:22] LABS: CALCIUM 6.9 mg/dL (8.5-10.1); CREATININE 11.9 mg/dL (0.6-1.0); GFR 3.2; POTASSIUM 5.5 mmol/L (3.5-5.1)
[2018-06-23 07:00] VITALS: BP 140/44
[2018-06-23] MEDS ORDERED: INSULIN LISPRO 300 UNITS/3 ML INSULN.PEN. SQ SCH (08:00)
[2018-06-23] MEDS ORDERED: ASPIRIN ENTERIC COATED 81 MG TABLET.DR. PO SCH (08:00)
[2018-06-23] MEDS ORDERED: CARVEDILOL 12.5 MG TABLET. PO SCH (08:00)
[2018-06-23] MEDS ORDERED: IV NORMAL SALINE 1000ML BAG 1,000 ML IV PRN ×2 (08:21)
[2018-06-23] MEDS ORDERED: 0.9 % SODIUM CHLORIDE 10 ML DISP.SYRIN. IV PRN ×2 (08:30)
[2018-06-23] MEDS ORDERED: ALBUMIN HUMAN 25% 200 ML IV PRN (08:30)
[2018-06-23] MEDS ORDERED: DIALYSIS PATIENT. MC PRN ×2 (08:30)
[2018-06-23] MEDS ORDERED: C.DIFF MED SCREEN BY RX. MC ONE (09:00)
[2018-06-23] MEDS ORDERED: FUROSEMIDE 40 MG TABLET. PO SCH (09:00)
[2018-06-23] MEDS ORDERED: CLOPIDOGREL BISULFATE 75 MG TABLET PO SCH (09:00)
[2018-06-23] MEDS ORDERED: ISOSORBIDE MONONITRATE ER 30 MG TAB.ER.24H PO SCH (09:00)
[2018-06-23] MEDS ORDERED: LISINOPRIL 20 MG TABLET PO SCH (09:00)
--- NOTE | 2018-06-23 10:52 | EKG ---
[facility] [address] [place] [address] Test Date: 2018-06-22 Test Time: 15:22:28 Pat Name: JORDY Godoypartment: Room: 534 1 Gender: F Professional Nursing Tutor: PANFILO : 1955 Requested By: JOSE ZAVALA Order Number: [id number] Reading MD: Scotty Huynh MD Measurements Intervals Lewis Rate: 65 P: 1 MD: 198 QRS: -9 QRSD: 96 T: 134 QT: 488 QTc: 508 Interpretive Statements SINUS RHYTHM LEFTWARD AXIS QRS(T) CONTOUR ABNORMALITY CONSIDER ANTEROLATERAL MYOCARDIAL DAMAGE PROLONGED QT PROBABLE LVH Electronically Signed On 06-27-2018 7:56:21 CHIEF OF STAFF DOCTOR by Scotty Huynh MD
--- NOTE | 2018-06-23 11:18 | PDOC2 ---
CONSULT Date of Consult Date of Consult DATE: 06/23/18 TIME: 11:12 Reason for Consult Reason for Consult: HIGH K Referring Physician Referring Physician: CEDRIC Identification/Chief Complaint Chief Complaint HAS NOT GONE TO DIALYSIS SINCE LAST TUESDAY Source Source: Chart review, Patient History of Present Illness Reason for Visit: THIS IS A 63 YR OLD ESRD PT WHO IS NON COMPLIANT. HAS NOT BEEN HD IN OVER A WEEK. HAS ESRD DUE TO DM II AND HTN. LABS ARE C/W ESRD AND K OF 5.9 AND HGB OF 6.0. SHE WILL NOT TAKE BLOOD PRODUCTS. SHE ALSO DOESN'T TAKE HER MEDS OR DO ANYTHING WE HAVE ASKED HER TO DO. COMPLAINTS OF WEAKNESS AND SOME SOB Past Medical History Cardiovascular: CAD, CHF, HTN, Hyperlipidemia Pulmonary: No pertinent hx, Other CENTRAL NERVOUS SYSTEM: Other GI: GERD Heme/Onc: No pertinent hx Hepatobiliary: No pertinent hx Psych: No pertinent hx Rheumatologic: No pertinent hx Infectious disease: No pertinent hx Renal/: Chronic renal failure Endocrine: Diabetes, Hyperparathyroidism Past Surgical History Past Surgical History: Other Family History Family History: Heart Disease Social History No ALCOHOL: none Drugs: None Lives: with Family Current Problem List Problem List Problems Medical Problems: (1) Anemia Status: Acute (2) Hyperkalemia Status: Acute Current Medications Current Medications Current Medications Sodium Polystyrene Sulfonate (Kayexalate) 30 gm 1X ONCE PO Last administered on 06/22/18at 16:45; Start 06/22/18 at 16:45; Stop 06/22/18 at 16:46; Status DC Ondansetron HCl (Zofran) 4 mg PRN Q8HRS PRN IV NAUSEA/VOMITING; Start 06/22/18 at 17:15; Stop 06/23/18 at 17:14 Acetaminophen (Tylenol) 650 mg PRN Q4HRS PRN PO FEVER; Start 06/22/18 at 17:15 ; Stop 06/23/18 at 17:14 Pharmacy Consult (C.diff Med Screen By Rx) 1 each 1X ONCE [facility] ; Start 06/23/18 at 09:00; Stop 06/23/18 at 09:01; Status UNV Amlodipine Besylate (Norvasc) 5 mg DAILYWLUN PO ; Start 06/23/18 at 12:00 Aspirin (Ecotrin) 81 mg DAILYWBKFT PO ; Start 06/23/18 at 08:00 Atorvastatin Calcium (Lipitor) 80 mg QHS PO Last administered on 06/22/18at 23: 27; Start 06/22/18 at 23:00 Clonazepam (KlonoPIN) 0.5 mg PRN TID PRN PO ANXIETY / AGITATION; Start at 22:45 Clopidogrel Bisulfate (Plavix) 75 mg DAILY PO ; Start 06/23/18 at 09:00 Furosemide (Lasix) 40 mg DAILY PO ; Start 06/23/18 at 09:00 Insulin Glargine (Lantus) 7 units QHS SQ Last administered on 06/22/18at 23:30; Start 06/22/18 at 23:00 Insulin Human Lispro (HumaLOG) 10 units TIDWMEALS SQ ; Start 06/23/18 at 08:00 Isosorbide Mononitrate (Imdur) 30 mg DAILY PO ; Start 06/23/18 at 09:00 Lisinopril (Prinivil) 20 mg DAILY PO ; Start 06/23/18 at 09:00 Carvedilol (Coreg) 12.5 mg BIDWMEALS PO ; Start 06/23/18 at 08:00 Acetaminophen (Tylenol) 650 mg 1X PRN PRN PO PRE-TRANSFUSION; Start 06/22/18 at 22:45; Stop 06/22/18 at 23:24; Status DC Diphenhydramine HCl (Benadryl Oral Elixir) 12.5 mg 1X PRN PRN PO PRE- TRANSFUSION; Start 06/22/18 at 22:45; Stop 06/22/18 at 23:24; Status DC Dextrose (Dextrose 50%-Water Syringe) 12.5 gm PRN Q15MIN PRN IV SEE COMMENTS; Start 06/23/18 at 02:45 Sodium Chloride 1,000 ml @ 1,000 mls/hr Q1H PRN IV hypotension; Start 06/23/18 at 08:21; Stop 06/23/18 at 14:20 Albumin Human 200 ml @ 200 mls/hr 1X PRN PRN IV Hypotension; Start 06/23/18 at 08:30; Stop 06/23/18 at 14:29 Sodium Chloride (Normal Saline Flush) 10 ml 1X PRN PRN IV AP catheter pack; Start 06/23/18 at 08:30; Stop 06/24/18 at 08:29 Sodium Chloride (Normal Saline Flush) 10 ml 1X PRN PRN IV INTELLIGENCE AGENT catheter pack; Start 06/23/18 at 08:30; Stop 06/24/18 at 08:29 Sodium Chloride 1,000 ml @ 400 mls/hr Q2H30M PRN IV PATENCY; Start 06/23/18 at 08:21; Stop 06/23/18 at 20:20 Info (PHARMACY MONITORING -- do not chart) 1 each PRN DAILY PRN [facility] SEE COMMENTS ; Start 06/23/18 at 08:30; Status UNV Info (PHARMACY MONITORING -- do not chart) 1 each PRN DAILY PRN MC SEE COMMENTS ; Start 06/23/18 at 08:30 Active Scripts Active Isosorbide Mononitrate Er (Isosorbide Mononitrate) 30 Mg Tab.er.24h 30 Mg PO DAILY 30 Days Furosemide 40 Mg Tablet 40 Mg PO DAILY 30 Days Clonazepam 0.5 Mg Tablet 0.5 Mg PO TID PRN 30 Days Humalog (Insulin Lispro) 100 Unit/1 Ml Insuln.pen 10 Units SQ TIDWMEALS 30 Days Lantus Solostar (Insulin Glargine,Hum.rec.anlog) 100 Unit/1 Ml Insuln.pen 7 Units SQ QHS 30 Days Atorvastatin Calcium 40 Mg Tablet 80 Mg PO QHS 30 Days Amlodipine Besylate 5 Mg Tablet 5 Mg PO DAILYWLUN 30 Days Clopidogrel (Clopidogrel Bisulfate) 75 Mg Tablet 75 Mg PO DAILY 30 Days Lisinopril 20 Mg Tablet 1 Tab PO DAILY 30 Days Aspirin Ec (Aspirin) 81 Mg Tablet.dr 81 Mg PO DAILYWBKFT 30 Days Reported Carvedilol 25 Mg Tablet 20 Mg PO BIDWMEALS Allergies Allergies: Coded Allergies: No Known Drug Allergies (Unverified , 11/28/17) ROS General: YES: Fatigue, Malaise, Appetite Eyes: Yes Blurry vision HEENT: YES: Heacaches ALLERGY AND IMMUNOLOGY: YES: Seasonal Allergies Respiratory: YES: Cough, Shortness of breath Cardiovascular: yes Orthopnea Gastrointestinal: Yes Constipation Genitourinary: YES Other (NON OLIGURIC) Musculoskeletal: Yes Muscular Weakness Neurological: Yes Weakness Skin: Yes Dry Skin Physical Exam General: Alert, Oriented X3, Cooperative, mild distress HEENT: Atraumatic, PERRLA, EOMI, Mucous membr. moist/pink Lungs: Other (DECREASED AT BASES) Heart: Regular rate, Normal S1, Normal S2 Abdomen: Normal bowel sounds, Soft, No tenderness Extremities: No clubbing Skin: No breakdown Neuro: Normal speech, Cranial nerves 3-12 NL Psych/Mental Status: Mental status NL, Mood NL MUSCULOSKELETAL: No joint tenderness, No deformity, No swelling Vitals VITALS Vital Signs Date Time Temp Pulse Resp B/P (MAP) Pulse Ox O2 Delivery O2 Flow Rate FiO2 06/23/18 07:00 98.4 69 18 140/44 (76) 98 Room Air 98.4 Labs Labs Laboratory Tests Test 06/22/18 16:00 06/22/18 20:43 06/23/18 05:10 06/23/18 07:46 White Blood Count 4.2 x10^3/uL (4.0-11.0) 5.5 x10^3/uL (4.0-11.0) Red Blood Count 1.95 x10^6/uL (3.50-5.40) 1.86 x10^6/uL (3.50-5.40) Hemoglobin 6.2 g/dL (12.0-15.5) 6.0 g/dL (12.0-15.5) Hematocrit 18.8 % (36.0-47.0) 18.0 % (36.0-47.0) Mean Corpuscular Volume 96 fL (79-100) 97 fL (79-100) Mean Corpuscular Hemoglobin 32 pg (25-35) 32 pg (25-35) Mean Corpuscular Hemoglobin Concent 33 g/dL (31-37) 34 g/dL (31-37) Red Cell Distribution Width 14.3 % (11.5-14.5) 14.4 % (11.5-14.5) Platelet Count 175 x10^3/uL (140-400) 196 x10^3/uL (140-400) Neutrophils (%) (Auto) 64 % (31-73) 70 % (31-73) Lymphocytes (%) (Auto) 20 % (24-48) 16 % (24-48) Monocytes (%) (Auto) 10 % (0-9) 8 % (0-9) Eosinophils (%) (Auto) 5 % (0-3) 5 % (0-3) Basophils (%) (Auto) 1 % (0-3) 1 % (0-3) Neutrophils # (Auto) 2.7 x10^3uL (1.8-7.7) 3.8 x10^3uL (1.8-7.7) Lymphocytes # (Auto) 0.8 x10^3/uL (1.0-4.8) 0.9 x10^3/uL (1.0-4.8) Monocytes # (Auto) 0.4 x10^3/uL (0.0-1.1) 0.4 x10^3/uL (0.0-1.1) Eosinophils # (Auto) 0.2 x10^3/uL (0.0-0.7) 0.3 x10^3/uL (0.0-0.7) Basophils # (Auto) 0.0 x10^3/uL (0.0-0.2) 0.0 x10^3/uL (0.0-0.2) Prothrombin Time 14.1 SEC (11.7-14.0) Prothromb Time International Ratio 1.1 (0.8-1.1) Sodium Level 135 mmol/L (136-145) 138 mmol/L (136-145) Potassium Level 5.9 mmol/L (3.5-5.1) 5.5 mmol/L (3.5-5.1) Chloride Level 94 mmol/L (98-107) 95 mmol/L (98-107) Carbon Dioxide Level 21 mmol/L (21-32) 21 mmol/L (21-32) Anion Gap 20 (6-14) 22 (6-14) Blood Urea Nitrogen 121 mg/dL (7-20) 127 mg/dL (7-20) Creatinine 11.5 mg/dL (0.6-1.0) 11.9 mg/dL (0.6-1.0) Estimated GFR (Cockcroft-Gault) 3.4 3.2 BUN/Creatinine Ratio 11 (6-20) Glucose Level 274 mg/dL (70-99) 135 mg/dL (70-99) Calcium Level 6.9 mg/dL (8.5-10.1) 6.9 mg/dL (8.5-10.1) Phosphorus Level 9.8 mg/dL (2.6-4.7) Magnesium Level 2.6 mg/dL (1.8-2.4) Total Bilirubin 0.3 mg/dL (0.2-1.0) Aspartate Amino Transf (AST/SGOT) 9 U/L (15-37) Alanine Aminotransferase (ALT/SGPT) 10 U/L (14-59) Alkaline Phosphatase 107 U/L (46-116) Total Protein 7.5 g/dL (6.4-8.2) Albumin 3.1 g/dL (3.4-5.0) Albumin/Globulin Ratio 0.7 (1.0-1.7) Glucose (Fingerstick) 177 mg/dL (70-99) 122 mg/dL (70-99) Laboratory Tests Test 06/22/18 16:00 06/22/18 20:43 06/23/18 05:10 06/23/18 07:46 White Blood Count 4.2 x10^3/uL (4.0-11.0) 5.5 x10^3/uL (4.0-11.0) Red Blood Count 1.95 x10^6/uL (3.50-5.40) 1.86 x10^6/uL (3.50-5.40) Hemoglobin 6.2 g/dL (12.0-15.5) 6.0 g/dL (12.0-15.5) Hematocrit 18.8 % (36.0-47.0) 18.0 % (36.0-47.0) Mean Corpuscular Volume 96 fL (79-100) 97 fL (79-100) Mean Corpuscular Hemoglobin 32 pg (25-35) 32 pg (25-35) Mean Corpuscular Hemoglobin Concent 33 g/dL (31-37) 34 g/dL (31-37) Red Cell Distribution Width 14.3 % (11.5-14.5) 14.4 % (11.5-14.5) Platelet Count 175 x10^3/uL (140-400) 196 x10^3/uL (140-400) Neutrophils (%) (Auto) 64 % (31-73) 70 % (31-73) Lymphocytes (%) (Auto) 20 % (24-48) 16 % (24-48) Monocytes (%) (Auto) 10 % (0-9) 8 % (0-9) Eosinophils (%) (Auto) 5 % (0-3) 5 % (0-3) Basophils (%) (Auto) 1 % (0-3) 1 % (0-3) Neutrophils # (Auto) 2.7 x10^3uL (1.8-7.7) 3.8 x10^3uL (1.8-7.7) Lymphocytes # (Auto) 0.8 x10^3/uL (1.0-4.8) 0.9 x10^3/uL (1.0-4.8) Monocytes # (Auto) 0.4 x10^3/uL (0.0-1.1) 0.4 x10^3/uL (0.0-1.1) Eosinophils # (Auto) 0.2 x10^3/uL (0.0-0.7) 0.3 x10^3/uL (0.0-0.7) Basophils # (Auto) 0.0 x10^3/uL (0.0-0.2) 0.0 x10^3/uL (0.0-0.2) Prothrombin Time 14.1 SEC (11.7-14.0) Prothromb Time International Ratio 1.1 (0.8-1.1) Sodium Level 135 mmol/L (136-145) 138 mmol/L (136-145) Potassium Level 5.9 mmol/L (3.5-5.1) 5.5 mmol/L (3.5-5.1) Chloride Level 94 mmol/L (98-107) 95 mmol/L (98-107) Carbon Dioxide Level 21 mmol/L (21-32) 21 mmol/L (21-32) Anion Gap 20 (6-14) 22 (6-14) Blood Urea Nitrogen 121 mg/dL (7-20) 127 mg/dL (7-20) Creatinine 11.5 mg/dL (0.6-1.0) 11.9 mg/dL (0.6-1.0) Estimated GFR (Cockcroft-Gault) 3.4 3.2 BUN/Creatinine Ratio 11 (6-20) Glucose Level 274 mg/dL (70-99) 135 mg/dL (70-99) Calcium Level 6.9 mg/dL (8.5-10.1) 6.9 mg/dL (8.5-10.1) Phosphorus Level 9.8 mg/dL (2.6-4.7) Magnesium Level 2.6 mg/dL (1.8-2.4) Total Bilirubin 0.3 mg/dL (0.2-1.0) Aspartate Amino Transf (AST/SGOT) 9 U/L (15-37) Alanine Aminotransferase (ALT/SGPT) 10 U/L (14-59) Alkaline Phosphatase 107 U/L (46-116) Total Protein 7.5 g/dL (6.4-8.2) Albumin 3.1 g/dL (3.4-5.0) Albumin/Globulin Ratio 0.7 (1.0-1.7) Glucose (Fingerstick) 177 mg/dL (70-99) 122 mg/dL (70-99) Assessment/Plan Assessment/Plan IMP HYPERKALEMIA ANEMIA NON COMPLIANCE ESRD DM II HTN PLAN ENC COMPLIANCE ARANESP PT WILL NOT ACCEPT BLOOD PRODUCTS HD TODAY UF TO DW OK TO D/C AFTER HD ЕЛЕНА MANZANO MD Jun 23, 2018 11:18
[2018-06-23] MEDS ORDERED: amLODIPine BESYLATE 5 MG TABLET PO SCH (12:00)
--- NOTE | 2018-06-23 12:16 | PDOC ---
PROGRESS NOTES History of Present Illness History of Present Illness discharge diagnosis Assessment/Plan IMPRESSION 1. ESRD ON DIALYSIS 2. NONCOMPLIANCE HIGH RISK OF COMPLICATIONS due to noncompliance d/w DR MANZANO 06/23 3. HX HTN 4. OBESITY 5. ACUTE VOLUME OVERLOAD 6. SEVERE ANEMIA PLAN ADMIT DIALYSIS CONSULT NEPHROLOGY HOME MEDS TRANSFUSE 1 UNIT [facility] PT REFUSED AMA DUE TO YAZIDISM BELIEFS, MU-ISM BAHAI TELE states she will keep dialysis appt tuesday, discussed in detail with daughter x 25 min Vitals Vitals Vital Signs Date Time Temp Pulse Resp B/P (MAP) Pulse Ox O2 Delivery O2 Flow Rate FiO2 06/23/18 07:00 98.4 69 18 140/44 (76) 98 Room Air 98.4 Physical Exam General: Alert, Oriented X3, Cooperative, mild distress Heart: Regular rate, Normal S1, Normal S2 Lungs: Crackles, Other Abdomen: Normal bowel sounds, Soft, No tenderness Extremities: No clubbing Skin: No breakdown Labs LABS Laboratory Tests Test 06/22/18 16:00 06/22/18 20:43 06/23/18 05:10 06/23/18 07:46 White Blood Count 4.2 x10^3/uL (4.0-11.0) 5.5 x10^3/uL (4.0-11.0) Red Blood Count 1.95 x10^6/uL (3.50-5.40) 1.86 x10^6/uL (3.50-5.40) Hemoglobin 6.2 g/dL (12.0-15.5) 6.0 g/dL (12.0-15.5) Hematocrit 18.8 % (36.0-47.0) 18.0 % (36.0-47.0) Mean Corpuscular Volume 96 fL (79-100) 97 fL (79-100) Mean Corpuscular Hemoglobin 32 pg (25-35) 32 pg (25-35) Mean Corpuscular Hemoglobin Concent 33 g/dL (31-37) 34 g/dL (31-37) Red Cell Distribution Width 14.3 % (11.5-14.5) 14.4 % (11.5-14.5) Platelet Count 175 x10^3/uL (140-400) 196 x10^3/uL (140-400) Neutrophils (%) (Auto) 64 % (31-73) 70 % (31-73) Lymphocytes (%) (Auto) 20 % (24-48) 16 % (24-48) Monocytes (%) (Auto) 10 % (0-9) 8 % (0-9) Eosinophils (%) (Auto) 5 % (0-3) 5 % (0-3) Basophils (%) (Auto) 1 % (0-3) 1 % (0-3) Neutrophils # (Auto) 2.7 x10^3uL (1.8-7.7) 3.8 x10^3uL (1.8-7.7) Lymphocytes # (Auto) 0.8 x10^3/uL (1.0-4.8) 0.9 x10^3/uL (1.0-4.8) Monocytes # (Auto) 0.4 x10^3/uL (0.0-1.1) 0.4 x10^3/uL (0.0-1.1) Eosinophils # (Auto) 0.2 x10^3/uL (0.0-0.7) 0.3 x10^3/uL (0.0-0.7) Basophils # (Auto) 0.0 x10^3/uL (0.0-0.2) 0.0 x10^3/uL (0.0-0.2) Prothrombin Time 14.1 SEC (11.7-14.0) Prothromb Time International Ratio 1.1 (0.8-1.1) Sodium Level 135 mmol/L (136-145) 138 mmol/L (136-145) Potassium Level 5.9 mmol/L (3.5-5.1) 5.5 mmol/L (3.5-5.1) Chloride Level 94 mmol/L (98-107) 95 mmol/L (98-107) Carbon Dioxide Level 21 mmol/L (21-32) 21 mmol/L (21-32) Anion Gap 20 (6-14) 22 (6-14) Blood Urea Nitrogen 121 mg/dL (7-20) 127 mg/dL (7-20) Creatinine 11.5 mg/dL (0.6-1.0) 11.9 mg/dL (0.6-1.0) Estimated GFR (Cockcroft-Gault) 3.4 3.2 BUN/Creatinine Ratio 11 (6-20) Glucose Level 274 mg/dL (70-99) 135 mg/dL (70-99) Calcium Level 6.9 mg/dL (8.5-10.1) 6.9 mg/dL (8.5-10.1) Phosphorus Level 9.8 mg/dL (2.6-4.7) Magnesium Level 2.6 mg/dL (1.8-2.4) Total Bilirubin 0.3 mg/dL (0.2-1.0) Aspartate Amino Transf (AST/SGOT) 9 U/L (15-37) Alanine Aminotransferase (ALT/SGPT) 10 U/L (14-59) Alkaline Phosphatase 107 U/L (46-116) Total Protein 7.5 g/dL (6.4-8.2) Albumin 3.1 g/dL (3.4-5.0) Albumin/Globulin Ratio 0.7 (1.0-1.7) Glucose (Fingerstick) 177 mg/dL (70-99) 122 mg/dL (70-99) Test 06/23/18 12:03 Glucose (Fingerstick) 107 mg/dL (70-99) Assessment and Plan Assessmemt and Plan Problems Medical Problems: (1) Anemia Status: Acute (2) Hyperkalemia Status: Acute Comment Review of Relevant I have reviewed the following items fede (where applicable) has been applied. Labs Laboratory Tests Test 06/22/18 16:00 06/22/18 20:43 06/23/18 05:10 06/23/18 07:46 White Blood Count 4.2 x10^3/uL (4.0-11.0) 5.5 x10^3/uL (4.0-11.0) Red Blood Count 1.95 x10^6/uL (3.50-5.40) 1.86 x10^6/uL (3.50-5.40) Hemoglobin 6.2 g/dL (12.0-15.5) 6.0 g/dL (12.0-15.5) Hematocrit 18.8 % (36.0-47.0) 18.0 % (36.0-47.0) Mean Corpuscular Volume 96 fL (79-100) 97 fL (79-100) Mean Corpuscular Hemoglobin 32 pg (25-35) 32 pg (25-35) Mean Corpuscular Hemoglobin Concent 33 g/dL (31-37) 34 g/dL (31-37) Red Cell Distribution Width 14.3 % (11.5-14.5) 14.4 % (11.5-14.5) Platelet Count 175 x10^3/uL (140-400) 196 x10^3/uL (140-400) Neutrophils (%) (Auto) 64 % (31-73) 70 % (31-73) Lymphocytes (%) (Auto) 20 % (24-48) 16 % (24-48) Monocytes (%) (Auto) 10 % (0-9) 8 % (0-9) Eosinophils (%) (Auto) 5 % (0-3) 5 % (0-3) Basophils (%) (Auto) 1 % (0-3) 1 % (0-3) Neutrophils # (Auto) 2.7 x10^3uL (1.8-7.7) 3.8 x10^3uL (1.8-7.7) Lymphocytes # (Auto) 0.8 x10^3/uL (1.0-4.8) 0.9 x10^3/uL (1.0-4.8) Monocytes # (Auto) 0.4 x10^3/uL (0.0-1.1) 0.4 x10^3/uL (0.0-1.1) Eosinophils # (Auto) 0.2 x10^3/uL (0.0-0.7) 0.3 x10^3/uL (0.0-0.7) Basophils # (Auto) 0.0 x10^3/uL (0.0-0.2) 0.0 x10^3/uL (0.0-0.2) Prothrombin Time 14.1 SEC (11.7-14.0) Prothromb Time International Ratio 1.1 (0.8-1.1) Sodium Level 135 mmol/L (136-145) 138 mmol/L (136-145) Potassium Level 5.9 mmol/L (3.5-5.1) 5.5 mmol/L (3.5-5.1) Chloride Level 94 mmol/L (98-107) 95 mmol/L (98-107) Carbon Dioxide Level 21 mmol/L (21-32) 21 mmol/L (21-32) Anion Gap 20 (6-14) 22 (6-14) Blood Urea Nitrogen 121 mg/dL (7-20) 127 mg/dL (7-20) Creatinine 11.5 mg/dL (0.6-1.0) 11.9 mg/dL (0.6-1.0) Estimated GFR (Cockcroft-Gault) 3.4 3.2 BUN/Creatinine Ratio 11 (6-20) Glucose Level 274 mg/dL (70-99) 135 mg/dL (70-99) Calcium Level 6.9 mg/dL (8.5-10.1) 6.9 mg/dL (8.5-10.1) Phosphorus Level 9.8 mg/dL (2.6-4.7) Magnesium Level 2.6 mg/dL (1.8-2.4) Total Bilirubin 0.3 mg/dL (0.2-1.0) Aspartate Amino Transf (AST/SGOT) 9 U/L (15-37) Alanine Aminotransferase (ALT/SGPT) 10 U/L (14-59) Alkaline Phosphatase 107 U/L (46-116) Total Protein 7.5 g/dL (6.4-8.2) Albumin 3.1 g/dL (3.4-5.0) Albumin/Globulin Ratio 0.7 (1.0-1.7) Glucose (Fingerstick) 177 mg/dL (70-99) 122 mg/dL (70-99) Test 06/23/18 12:03 Glucose (Fingerstick) 107 mg/dL (70-99) Laboratory Tests Test 06/22/18 16:00 06/22/18 20:43 06/23/18 05:10 06/23/18 07:46 White Blood Count 4.2 x10^3/uL (4.0-11.0) 5.5 x10^3/uL (4.0-11.0) Red Blood Count 1.95 x10^6/uL (3.50-5.40) 1.86 x10^6/uL (3.50-5.40) Hemoglobin 6.2 g/dL (12.0-15.5) 6.0 g/dL (12.0-15.5) Hematocrit 18.8 % (36.0-47.0) 18.0 % (36.0-47.0) Mean Corpuscular Volume 96 fL (79-100) 97 fL (79-100) Mean Corpuscular Hemoglobin 32 pg (25-35) 32 pg (25-35) Mean Corpuscular Hemoglobin Concent 33 g/dL (31-37) 34 g/dL (31-37) Red Cell Distribution Width 14.3 % (11.5-14.5) 14.4 % (11.5-14.5) Platelet Count 175 x10^3/uL (140-400) 196 x10^3/uL (140-400) Neutrophils (%) (Auto) 64 % (31-73) 70 % (31-73) Lymphocytes (%) (Auto) 20 % (24-48) 16 % (24-48) Monocytes (%) (Auto) 10 % (0-9) 8 % (0-9) Eosinophils (%) (Auto) 5 % (0-3) 5 % (0-3) Basophils (%) (Auto) 1 % (0-3) 1 % (0-3) Neutrophils # (Auto) 2.7 x10^3uL (1.8-7.7) 3.8 x10^3uL (1.8-7.7) Lymphocytes # (Auto) 0.8 x10^3/uL (1.0-4.8) 0.9 x10^3/uL (1.0-4.8) Monocytes # (Auto) 0.4 x10^3/uL (0.0-1.1) 0.4 x10^3/uL (0.0-1.1) Eosinophils # (Auto) 0.2 x10^3/uL (0.0-0.7) 0.3 x10^3/uL (0.0-0.7) Basophils # (Auto) 0.0 x10^3/uL (0.0-0.2) 0.0 x10^3/uL (0.0-0.2) Prothrombin Time 14.1 SEC (11.7-14.0) Prothromb Time International Ratio 1.1 (0.8-1.1) Sodium Level 135 mmol/L (136-145) 138 mmol/L (136-145) Potassium Level 5.9 mmol/L (3.5-5.1) 5.5 mmol/L (3.5-5.1) Chloride Level 94 mmol/L (98-107) 95 mmol/L (98-107) Carbon Dioxide Level 21 mmol/L (21-32) 21 mmol/L (21-32) Anion Gap 20 (6-14) 22 (6-14) Blood Urea Nitrogen 121 mg/dL (7-20) 127 mg/dL (7-20) Creatinine 11.5 mg/dL (0.6-1.0) 11.9 mg/dL (0.6-1.0) Estimated GFR (Cockcroft-Gault) 3.4 3.2 BUN/Creatinine Ratio 11 (6-20) Glucose Level 274 mg/dL (70-99) 135 mg/dL (70-99) Calcium Level 6.9 mg/dL (8.5-10.1) 6.9 mg/dL (8.5-10.1) Phosphorus Level 9.8 mg/dL (2.6-4.7) Magnesium Level 2.6 mg/dL (1.8-2.4) Total Bilirubin 0.3 mg/dL (0.2-1.0) Aspartate Amino Transf (AST/SGOT) 9 U/L (15-37) Alanine Aminotransferase (ALT/SGPT) 10 U/L (14-59) Alkaline Phosphatase 107 U/L (46-116) Total Protein 7.5 g/dL (6.4-8.2) Albumin 3.1 g/dL (3.4-5.0) Albumin/Globulin Ratio 0.7 (1.0-1.7) Glucose (Fingerstick) 177 mg/dL (70-99) 122 mg/dL (70-99) Test 06/23/18 12:03 Glucose (Fingerstick) 107 mg/dL (70-99) Medications Current Medications Sodium Polystyrene Sulfonate (Kayexalate) 30 gm 1X ONCE PO Last administered on 06/22/18at 16:45; Start 06/22/18 at 16:45; Stop 06/22/18 at 16:46; Status DC Ondansetron HCl (Zofran) 4 mg PRN Q8HRS PRN IV NAUSEA/VOMITING; Start 06/22/18 at 17:15; Stop 06/23/18 at 17:14 Acetaminophen (Tylenol) 650 mg PRN Q4HRS PRN PO FEVER; Start 06/22/18 at 17:15 ; Stop 06/23/18 at 17:14 Pharmacy Consult (C.diff Med Screen By Rx) 1 each 1X ONCE [facility] ; Start 06/23/18 at 09:00; Stop 06/23/18 at 09:01; Status UNV Amlodipine Besylate (Norvasc) 5 mg DAILYWLUN PO ; Start 06/23/18 at 12:00 Aspirin (Ecotrin) 81 mg DAILYWBKFT PO ; Start 06/23/18 at 08:00 Atorvastatin Calcium (Lipitor) 80 mg QHS PO Last administered on 06/22/18at 23: 27; Start 06/22/18 at 23:00 Clonazepam (KlonoPIN) 0.5 mg PRN TID PRN PO ANXIETY / AGITATION; Start at 22:45 Clopidogrel Bisulfate (Plavix) 75 mg DAILY PO ; Start 06/23/18 at 09:00 Furosemide (Lasix) 40 mg DAILY PO ; Start 06/23/18 at 09:00 Insulin Glargine (Lantus) 7 units QHS SQ Last administered on 06/22/18at 23:30; Start 06/22/18 at 23:00 Insulin Human Lispro (HumaLOG) 10 units TIDWMEALS SQ ; Start 06/23/18 at 08:00 Isosorbide Mononitrate (Imdur) 30 mg DAILY PO ; Start 06/23/18 at 09:00 Lisinopril (Prinivil) 20 mg DAILY PO ; Start 06/23/18 at 09:00 Carvedilol (Coreg) 12.5 mg BIDWMEALS PO ; Start 06/23/18 at 08:00 Acetaminophen (Tylenol) 650 mg 1X PRN PRN PO PRE-TRANSFUSION; Start 06/22/18 at 22:45; Stop 06/22/18 at 23:24; Status DC Diphenhydramine HCl (Benadryl Oral Elixir) 12.5 mg 1X PRN PRN PO PRE- TRANSFUSION; Start 06/22/18 at 22:45; Stop 06/22/18 at 23:24; Status DC Dextrose (Dextrose 50%-Water Syringe) 12.5 gm PRN Q15MIN PRN IV SEE COMMENTS; Start 06/23/18 at 02:45 Sodium Chloride 1,000 ml @ 1,000 mls/hr Q1H PRN IV hypotension; Start 06/23/18 at 08:21; Stop 06/23/18 at 14:20 Albumin Human 200 ml @ 200 mls/hr 1X PRN PRN IV Hypotension; Start 06/23/18 at 08:30; Stop 06/23/18 at 14:29 Sodium Chloride (Normal Saline Flush) 10 ml 1X PRN PRN IV AP catheter pack; Start 06/23/18 at 08:30; Stop 06/24/18 at 08:29 Sodium Chloride (Normal Saline Flush) 10 ml 1X PRN PRN IV [employer] catheter pack; Start 06/23/18 at 08:30; Stop 06/24/18 at 08:29 Sodium Chloride 1,000 ml @ 400 mls/hr Q2H30M PRN IV PATENCY; Start 06/23/18 at 08:21; Stop 06/23/18 at 20:20 Info (PHARMACY MONITORING -- do not chart) 1 each PRN DAILY PRN MC SEE COMMENTS ; Start 06/23/18 at 08:30; Status UNV Info (PHARMACY MONITORING -- do not chart) 1 each PRN DAILY PRN MC SEE COMMENTS ; Start 06/23/18 at 08:30 Darbepoetin Malick (Aranesp) 60 mcg WEEKLYHS SQ ; Start 06/23/18 at 21:00 Active Scripts Active Isosorbide Mononitrate Er (Isosorbide Mononitrate) 30 Mg Tab.er.24h 30 Mg PO DAILY 30 Days Furosemide 40 Mg Tablet 40 Mg PO DAILY 30 Days Clonazepam 0.5 Mg Tablet 0.5 Mg PO TID PRN 30 Days Humalog (Insulin Lispro) 100 Unit/1 Ml Insuln.pen 10 Units SQ TIDWMEALS 30 Days Lantus Solostar (Insulin Glargine,Hum.rec.anlog) 100 Unit/1 Ml Insuln.pen 7 Units SQ QHS 30 Days Atorvastatin Calcium 40 Mg Tablet 80 Mg PO QHS 30 Days Amlodipine Besylate 5 Mg Tablet 5 Mg PO DAILYWLUN 30 Days Clopidogrel (Clopidogrel Bisulfate) 75 Mg Tablet 75 Mg PO DAILY 30 Days Lisinopril 20 Mg Tablet 1 Tab PO DAILY 30 Days Aspirin Ec (Aspirin) 81 Mg Tablet.dr 81 Mg PO DAILYWBKFT 30 Days Reported Carvedilol 25 Mg Tablet 20 Mg PO BIDWMEALS Vitals/I & O Vital Sign - Last 24 Hours 06/22/18 06/22/18 06/22/18 06/22/18 15:20 16:30 16:45 17:30 Temp 97.8 97.5 97.8 97.5 Pulse 64 62 67 60 Resp 16 16 20 16 B/P (MAP) 147/70 (95) 146/69 (94) 147/73 (97) 147/64 (91) Pulse Ox 99 100 95 98 O2 Delivery Room Air Room Air Room Air Room Air 06/22/18 06/22/18 06/22/18 06/22/18 18:30 19:00 20:00 23:00 Temp 97.5 97.5 97.5 97.5 Pulse 62 66 68 Resp 16 20 20 B/P (MAP) 140/70 (93) 140/49 (79) 141/46 (77) Pulse Ox 99 96 100 O2 Delivery Room Air Room Air Room Air Room Air 06/23/18 06/23/18 03:00 07:00 Temp 98.3 98.4 98.3 98.4 Pulse 70 69 Resp 20 18 B/P (MAP) 154/50 (84) 140/44 (76) Pulse Ox 99 98 O2 Delivery Room Air Room Air Intake and Output 06/22/18 06/22/18 06/23/18 14:59 22:59 06:59 Intake Total 0 ml 420 ml Balance 0 ml 420 ml BIJAN STEELE MD Jun 23, 2018 12:16
[2018-06-23 13:20] VITALS: BP 172/45
[2018-06-23 15:00] VITALS: BP 163/57
--- NOTE | 2018-06-23 15:00 | PDOC3 ---
Discharge Summary Date of Admission: Jun 22, 2018 Date of Discharge: Jun 23, 2018 Follow-Up: 3-5 days Admitting Diagnosis comment: discharge diagnosis Assessment/Plan IMPRESSION 1. ESRD ON DIALYSIS 2. NONCOMPLIANCE HIGH RISK OF COMPLICATIONS due to noncompliance d/w DR MANZANO 06/23 3. HX HTN 4. OBESITY 5. ACUTE VOLUME OVERLOAD 6. SEVERE ANEMIA PLAN ADMIT DIALYSIS CONSULT NEPHROLOGY HOME MEDS TRANSFUSE 1 UNIT [facility]'S PT REFUSED AMA DUE TO HINDU BELIEFS, DENOMINATIONAL WORSHIP TELE states she will keep dialysis appt tuesday, discussed in detail with daughter x 25 min d/c planning 35 min Vitals Vitals Vital Signs Date Time Temp Pulse Resp B/P (MAP) Pulse Ox O2 Delivery O2 Flow Rate FiO2 06/23/18 07:00 98.4 69 18 140/44 (76) 98 Room Air 98.4 Physical Exam General: Alert, Oriented X3, Cooperative, mild distress Heart: Regular rate, Normal S1, Normal S2 Lungs: Crackles, Other Abdomen: Normal bowel sounds, Soft, No tenderness Extremities: No clubbing Skin: No breakdown FINAL DIAGNOSIS Problems Medical Problems: (1) Anemia Status: Acute (2) Hyperkalemia Status: Acute Brief Hospital Course Ms. Varela is a 63 old [sex] who presented with [ ESRD VOLUME OVERLOAD ] CONDITION AT DISCHARGE: Improved Discharge Medications Current Medications Sodium Polystyrene Sulfonate (Kayexalate) 30 gm 1X ONCE PO Last administered on 06/22/18at 16:45; Start 06/22/18 at 16:45; Stop 06/22/18 at 16:46; Status DC Ondansetron HCl (Zofran) 4 mg PRN Q8HRS PRN IV NAUSEA/VOMITING; Start 06/22/18 at 17:15; Stop 06/23/18 at 17:14 Acetaminophen (Tylenol) 650 mg PRN Q4HRS PRN PO FEVER; Start 06/22/18 at 17:15 ; Stop 06/23/18 at 17:14 Pharmacy Consult (C.diff Med Screen By Rx) 1 each 1X ONCE MC ; Start 06/23/18 at 09:00; Stop 06/23/18 at 09:01; Status UNV Amlodipine Besylate (Norvasc) 5 mg DAILYWLUN PO ; Start 06/23/18 at 12:00 Aspirin (Ecotrin) 81 mg DAILYWBKFT PO ; Start 06/23/18 at 08:00 Atorvastatin Calcium (Lipitor) 80 mg QHS PO Last administered on 06/22/18at 23: 27; Start 06/22/18 at 23:00 Clonazepam (KlonoPIN) 0.5 mg PRN TID PRN PO ANXIETY / AGITATION; Start at 22:45 Clopidogrel Bisulfate (Plavix) 75 mg DAILY PO ; Start 06/23/18 at 09:00 Furosemide (Lasix) 40 mg DAILY PO ; Start 06/23/18 at 09:00 Insulin Glargine (Lantus) 7 units QHS SQ Last administered on 06/22/18at 23:30; Start 06/22/18 at 23:00 Insulin Human Lispro (HumaLOG) 10 units TIDWMEALS SQ ; Start 06/23/18 at 08:00 Isosorbide Mononitrate (Imdur) 30 mg DAILY PO ; Start 06/23/18 at 09:00 Lisinopril (Prinivil) 20 mg DAILY PO ; Start 06/23/18 at 09:00 Carvedilol (Coreg) 12.5 mg BIDWMEALS PO ; Start 06/23/18 at 08:00 Acetaminophen (Tylenol) 650 mg 1X PRN PRN PO PRE-TRANSFUSION; Start 06/22/18 at 22:45; Stop 06/22/18 at 23:24; Status DC Diphenhydramine HCl (Benadryl Oral Elixir) 12.5 mg 1X PRN PRN PO PRE- TRANSFUSION; Start 06/22/18 at 22:45; Stop 06/22/18 at 23:24; Status DC Dextrose (Dextrose 50%-Water Syringe) 12.5 gm PRN Q15MIN PRN IV SEE COMMENTS; Start 06/23/18 at 02:45 Sodium Chloride 1,000 ml @ 1,000 mls/hr Q1H PRN IV hypotension; Start 06/23/18 at 08:21; Stop 06/23/18 at 14:20; Status DC Albumin Human 200 ml @ 200 mls/hr 1X PRN PRN IV Hypotension; Start 06/23/18 at 08:30; Stop 06/23/18 at 14:29; Status DC Sodium Chloride (Normal Saline Flush) 10 ml 1X PRN PRN IV AP catheter pack; Start 06/23/18 at 08:30; Stop 06/24/18 at 08:29 Sodium Chloride (Normal Saline Flush) 10 ml 1X PRN PRN IV HAMMER REPAIRER catheter pack; Start 06/23/18 at 08:30; Stop 06/24/18 at 08:29 Sodium Chloride 1,000 ml @ 400 mls/hr Q2H30M PRN IV PATENCY; Start 06/23/18 at 08:21; Stop 06/23/18 at 20:20 Info (PHARMACY MONITORING -- do not chart) 1 each PRN DAILY PRN MC SEE COMMENTS ; Start 06/23/18 at 08:30; Status UNV Info (PHARMACY MONITORING -- do not chart) 1 each PRN DAILY PRN MC SEE COMMENTS ; Start 06/23/18 at 08:30 Darbepoetin Malick (Aranesp) 60 mcg WEEKLYHS SQ ; Start 06/23/18 at 21:00 Active Scripts Active Isosorbide Mononitrate Er (Isosorbide Mononitrate) 30 Mg Tab.er.24h 30 Mg PO DAILY 30 Days Furosemide 40 Mg Tablet 40 Mg PO DAILY 30 Days Clonazepam 0.5 Mg Tablet 0.5 Mg PO TID PRN 30 Days Humalog (Insulin Lispro) 100 Unit/1 Ml Insuln.pen 10 Units SQ TIDWMEALS 30 Days Lantus Solostar (Insulin Glargine,Hum.rec.anlog) 100 Unit/1 Ml Insuln.pen 7 Units SQ QHS 30 Days Atorvastatin Calcium 40 Mg Tablet 80 Mg PO QHS 30 Days Amlodipine Besylate 5 Mg Tablet 5 Mg PO DAILYWLUN 30 Days Clopidogrel (Clopidogrel Bisulfate) 75 Mg Tablet 75 Mg PO DAILY 30 Days Lisinopril 20 Mg Tablet 1 Tab PO DAILY 30 Days Aspirin Ec (Aspirin) 81 Mg Tablet.dr 81 Mg PO DAILYWBKFT 30 Days Reported Carvedilol 25 Mg Tablet 20 Mg PO BIDWMEALS Vital Signs Vital Signs Date Time Temp Pulse Resp B/P (MAP) Pulse Ox O2 Delivery O2 Flow Rate FiO2 06/23/18 13:20 98.3 78 18 172/45 (87) 100 Room Air 98.3 Labs Laboratory Tests Test 06/22/18 16:00 06/22/18 20:43 06/23/18 05:10 06/23/18 07:46 White Blood Count 4.2 x10^3/uL (4.0-11.0) 5.5 x10^3/uL (4.0-11.0) Red Blood Count 1.95 x10^6/uL (3.50-5.40) 1.86 x10^6/uL (3.50-5.40) Hemoglobin 6.2 g/dL (12.0-15.5) 6.0 g/dL (12.0-15.5) Hematocrit 18.8 % (36.0-47.0) 18.0 % (36.0-47.0) Mean Corpuscular Volume 96 fL (79-100) 97 fL (79-100) Mean Corpuscular Hemoglobin 32 pg (25-35) 32 pg (25-35) Mean Corpuscular Hemoglobin Concent 33 g/dL (31-37) 34 g/dL (31-37) Red Cell Distribution Width 14.3 % (11.5-14.5) 14.4 % (11.5-14.5) Platelet Count 175 x10^3/uL (140-400) 196 x10^3/uL (140-400) Neutrophils (%) (Auto) 64 % (31-73) 70 % (31-73) Lymphocytes (%) (Auto) 20 % (24-48) 16 % (24-48) Monocytes (%) (Auto) 10 % (0-9) 8 % (0-9) Eosinophils (%) (Auto) 5 % (0-3) 5 % (0-3) Basophils (%) (Auto) 1 % (0-3) 1 % (0-3) Neutrophils # (Auto) 2.7 x10^3uL (1.8-7.7) 3.8 x10^3uL (1.8-7.7) Lymphocytes # (Auto) 0.8 x10^3/uL (1.0-4.8) 0.9 x10^3/uL (1.0-4.8) Monocytes # (Auto) 0.4 x10^3/uL (0.0-1.1) 0.4 x10^3/uL (0.0-1.1) Eosinophils # (Auto) 0.2 x10^3/uL (0.0-0.7) 0.3 x10^3/uL (0.0-0.7) Basophils # (Auto) 0.0 x10^3/uL (0.0-0.2) 0.0 x10^3/uL (0.0-0.2) Prothrombin Time 14.1 SEC (11.7-14.0) Prothromb Time International Ratio 1.1 (0.8-1.1) Sodium Level 135 mmol/L (136-145) 138 mmol/L (136-145) Potassium Level 5.9 mmol/L (3.5-5.1) 5.5 mmol/L (3.5-5.1) Chloride Level 94 mmol/L (98-107) 95 mmol/L (98-107) Carbon Dioxide Level 21 mmol/L (21-32) 21 mmol/L (21-32) Anion Gap 20 (6-14) 22 (6-14) Blood Urea Nitrogen 121 mg/dL (7-20) 127 mg/dL (7-20) Creatinine 11.5 mg/dL (0.6-1.0) 11.9 mg/dL (0.6-1.0) Estimated GFR (Cockcroft-Gault) 3.4 3.2 BUN/Creatinine Ratio 11 (6-20) Glucose Level 274 mg/dL (70-99) 135 mg/dL (70-99) Calcium Level 6.9 mg/dL (8.5-10.1) 6.9 mg/dL (8.5-10.1) Phosphorus Level 9.8 mg/dL (2.6-4.7) Magnesium Level 2.6 mg/dL (1.8-2.4) Total Bilirubin 0.3 mg/dL (0.2-1.0) Aspartate Amino Transf (AST/SGOT) 9 U/L (15-37) Alanine Aminotransferase (ALT/SGPT) 10 U/L (14-59) Alkaline Phosphatase 107 U/L (46-116) Total Protein 7.5 g/dL (6.4-8.2) Albumin 3.1 g/dL (3.4-5.0) Albumin/Globulin Ratio 0.7 (1.0-1.7) Glucose (Fingerstick) 177 mg/dL (70-99) 122 mg/dL (70-99) Test 06/23/18 12:03 Glucose (Fingerstick) 107 mg/dL (70-99) Laboratory Tests Test 06/22/18 16:00 06/22/18 20:43 06/23/18 05:10 06/23/18 07:46 White Blood Count 4.2 x10^3/uL (4.0-11.0) 5.5 x10^3/uL (4.0-11.0) Red Blood Count 1.95 x10^6/uL (3.50-5.40) 1.86 x10^6/uL (3.50-5.40) Hemoglobin 6.2 g/dL (12.0-15.5) 6.0 g/dL (12.0-15.5) Hematocrit 18.8 % (36.0-47.0) 18.0 % (36.0-47.0) Mean Corpuscular Volume 96 fL (79-100) 97 fL (79-100) Mean Corpuscular Hemoglobin 32 pg (25-35) 32 pg (25-35) Mean Corpuscular Hemoglobin Concent 33 g/dL (31-37) 34 g/dL (31-37) Red Cell Distribution Width 14.3 % (11.5-14.5) 14.4 % (11.5-14.5) Platelet Count 175 x10^3/uL (140-400) 196 x10^3/uL (140-400) Neutrophils (%) (Auto) 64 % (31-73) 70 % (31-73) Lymphocytes (%) (Auto) 20 % (24-48) 16 % (24-48) Monocytes (%) (Auto) 10 % (0-9) 8 % (0-9) Eosinophils (%) (Auto) 5 % (0-3) 5 % (0-3) Basophils (%) (Auto) 1 % (0-3) 1 % (0-3) Neutrophils # (Auto) 2.7 x10^3uL (1.8-7.7) 3.8 x10^3uL (1.8-7.7) Lymphocytes # (Auto) 0.8 x10^3/uL (1.0-4.8) 0.9 x10^3/uL (1.0-4.8) Monocytes # (Auto) 0.4 x10^3/uL (0.0-1.1) 0.4 x10^3/uL (0.0-1.1) Eosinophils # (Auto) 0.2 x10^3/uL (0.0-0.7) 0.3 x10^3/uL (0.0-0.7) Basophils # (Auto) 0.0 x10^3/uL (0.0-0.2) 0.0 x10^3/uL (0.0-0.2) Prothrombin Time 14.1 SEC (11.7-14.0) Prothromb Time International Ratio 1.1 (0.8-1.1) Sodium Level 135 mmol/L (136-145) 138 mmol/L (136-145) Potassium Level 5.9 mmol/L (3.5-5.1) 5.5 mmol/L (3.5-5.1) Chloride Level 94 mmol/L (98-107) 95 mmol/L (98-107) Carbon Dioxide Level 21 mmol/L (21-32) 21 mmol/L (21-32) Anion Gap 20 (6-14) 22 (6-14) Blood Urea Nitrogen 121 mg/dL (7-20) 127 mg/dL (7-20) Creatinine 11.5 mg/dL (0.6-1.0) 11.9 mg/dL (0.6-1.0) Estimated GFR (Cockcroft-Gault) 3.4 3.2 BUN/Creatinine Ratio 11 (6-20) Glucose Level 274 mg/dL (70-99) 135 mg/dL (70-99) Calcium Level 6.9 mg/dL (8.5-10.1) 6.9 mg/dL (8.5-10.1) Phosphorus Level 9.8 mg/dL (2.6-4.7) Magnesium Level 2.6 mg/dL (1.8-2.4) Total Bilirubin 0.3 mg/dL (0.2-1.0) Aspartate Amino Transf (AST/SGOT) 9 U/L (15-37) Alanine Aminotransferase (ALT/SGPT) 10 U/L (14-59) Alkaline Phosphatase 107 U/L (46-116) Total Protein 7.5 g/dL (6.4-8.2) Albumin 3.1 g/dL (3.4-5.0) Albumin/Globulin Ratio 0.7 (1.0-1.7) Glucose (Fingerstick) 177 mg/dL (70-99) 122 mg/dL (70-99) Test 06/23/18 12:03 Glucose (Fingerstick) 107 mg/dL (70-99) Allergies Allergies Coded Allergies Type Severity Reaction Last Updated Verified No Known Drug Allergies 11/28/17 No Disposition/Orders: D/C to Home Patient Instructions D/C PLANNING 35 MIN BIJAN STEELE MD Jun 23, 2018 15:00
--- NOTE | 2018-06-23 15:02 | DISCH ---
DISCHARGE INSTRUCTIONS Condition on Discharge Condition on Discharge: Guarded Activity After Discharge Activity Instructions for Disc: No restrictions Lifting Instructions after Dis: No heavy lifting, No pulling or pushing, Do not lift >10 pounds Exercise Instruction after Dis: Walk 10 min, 3 x per day, Progress as tolerated Driving Instructions after Dis: Do not drive Weight Bearing Status after Di: No restrictions Diet after Discharge Diet after Discharge: Renal Dialysis Diet Texture: Regular Liquid Texture: Thin Liquid Swallowing Supervision: None needed Wound Incision Care Wound/Incision Care: May get incision wet, No wound care needed Checks after Discharge Checks after discharge: Check blood press - daily, Check blood sugar, ac/hs, Weigh Yourself Daily Contacting the DR. after DC Call your doctor for: If your condition worsens Follow-Up Follow up with: KEEP APPT FOR DIALYSIS THIS TUESDAY 3 X A WEEK Treatment/Equipment after DC Adaptive Equipment Issued: None BIJAN STEELE MD Jun 23, 2018 15:02
--- NOTE | 2018-06-23 15:45 | NUR ---
Patient discharged home to daughter. Daughter, patient have indicated they understand now how important it is to not miss any dialysis treatments.
[2018-06-23 15:48] VITALS: BP 163/57
[2018-06-23] MEDS ORDERED: DARBEPOETIN ALFA 60 MCG/0.3 ML DISP.SYRIN. SQ SCH (21:00)
== END 2018-06-23 15:45 | disposition home or self-care (01) | DRG 640 ==
LOC: ER 14:45 → 5 NORTH 16:24
PROVIDERS: ADMIT Family Medicine; ATTEND Family Medicine
PROC: 5A1D70Z Performance of Urinary Filtration, Intermittent, Less than 6 Hours Per Day (ICD-10-PCS; principal; 2018-06-23)
DX: E87.70 Fluid overload, unspecified (principal); N18.6 End stage renal disease; I13.2 Hypertensive heart and chronic kidney disease with heart failure and with stage 5 chronic kidney disease, or end stage renal disease; E11.22 Type 2 diabetes mellitus with diabetic chronic kidney disease; D64.9 Anemia, unspecified; E66.9 Obesity, unspecified; E78.00 Pure hypercholesterolemia, unspecified; E78.5 Hyperlipidemia, unspecified; E87.5 Hyperkalemia; F41.9 Anxiety disorder, unspecified; E21.3 Hyperparathyroidism, unspecified; I25.10 Atherosclerotic heart disease of native coronary artery without angina pectoris; I50.9 Heart failure, unspecified; K21.9 Gastro-esophageal reflux disease without esophagitis; Z68.32 Body mass index [BMI] 32.0-32.9, adult; Z83.3 Family history of diabetes mellitus; Z91.19 Patient's noncompliance with other medical treatment and regimen; Z99.2 Dependence on renal dialysis; I25.2 Old myocardial infarction; Z95.5 Presence of coronary angioplasty implant and graft
CPT/HCPCS: 36415; 80048; 80053; 82962; 83735; 84100; 85025; 85610; 93005; J1815; 99285-25

== ENCOUNTER 2018-08-03 15:36 | Inpatient (IN) | payer OTHER ==
[~2018-08-03] VITALS: Ht 162.6 cm; Wt 80.4 kg
[2018-08-03] MEDS ORDERED: cloNIDine HCL 0.1 MG TABLET PO ONE (16:15)
--- NOTE | 2018-08-03 16:17 | PHYS DOC ---
Past Medical History Past Medical History: CHF, Diabetes-Type II, High Cholesterol, Hypertension, [place] , Renal Disease, Renal Failure, Other Additional Past Medical Histor: PSORASIS Past Surgical History: Angioplasty, Other Additional Past Surgical Histo: 2L fluid removed from lungs, CARDIAC CATH/ STENTS,DIALYSIS CATH R CHEST Alcohol Use: None Drug Use: None Adult General Chief Complaint Chief Complaint: DIALYSIS PROBLEM HPI HPI Patient is a 63 year old Irish speaking who was seen by her daughter because of problem with dialysis catheter. Patient daughter states she was not able to have dialysis 4 days ago and was told to come to ER for changing the catheter but she was not able to bring her sooner. Patient complaining of shortness of breath that getting worse with supine position and denies nausea and vomiting, diarrhea and constipation, chest pain, fever and chills. Patient's last dialysis was one week ago. Review of Systems Review of Systems Constitutional: Denies fever or chills [] Eyes: Denies change in visual acuity, redness, or eye pain [] HENT: Denies nasal congestion or sore throat [] Respiratory: Denies cough, reports shortness of breath [] Cardiovascular: No additional information not addressed in HPI [] GI: Denies abdominal pain, nausea, vomiting, bloody stools or diarrhea [] : Denies dysuria or hematuria [] Musculoskeletal: Denies back pain or joint pain [] Integument: Denies rash or skin lesions [] Neurologic: Denies headache, focal weakness or sensory changes [] Endocrine: Denies polyuria or polydipsia [] All other systems were reviewed and found to be within normal limits, except as documented in this note. Current Medications Current Medications Current Medications Medications (Trade) Dose Ordered Sig/[place] Start Time Stop Time Status Last Admin Dose Admin Albuterol Sulfate (Ventolin Neb Soln) 10 mg 1X ONCE 08/03/18 17:15 08/03/18 17:18 DC Clonidine HCl (Catapres) 0.1 mg 1X ONCE 08/03/18 16:15 08/03/18 16:16 DC 08/03/18 16:50 0.1 MG Dextrose (Dextrose 50%-Water Syringe) 25 gm 1X ONCE 08/03/18 17:15 08/03/18 17:18 DC Insulin Human Regular (HumuLIN R VIAL) 10 unit 1X ONCE 08/03/18 17:15 08/03/18 17:18 DC Sodium Bicarbonate (Sodium Bicarb Adult 8.4% Syr) 50 meq 1X ONCE 08/03/18 17:15 08/03/18 17:18 DC Allergies Allergies Allergies Coded Allergies Type Severity Reaction Last Updated Verified No Known Drug Allergies 11/28/17 No Physical Exam Physical Exam Constitutional: Well developed, well nourished, no acute distress, non-toxic appearance. [] HENT: Normocephalic, atraumatic Eyes: PERRLA, EOMI, conjunctiva normal, no discharge. [] Neck: Normal range of motion, no tenderness, supple, no stridor. [] Cardiovascular:Heart rate regular rhythm, no murmur [] Lungs & Thorax: Mild basilar rales Abdomen: Bowel sounds normal, soft, no tenderness, no masses, no pulsatile masses. [] Skin: Warm, dry, no erythema, no rash. [] Back: No tenderness, no CVA tenderness. [] Extremities: No tenderness, no cyanosis, no clubbing, ROM intact, no edema. [] Neurologic: Alert and oriented X 3, normal motor function, normal sensory function, no focal deficits noted. [] Psychologic: Affect normal, judgement normal, mood normal. [] Current Patient Data Vital Signs Vital Signs Date Time Temp Pulse Resp B/P (MAP) Pulse Ox O2 Delivery O2 Flow Rate FiO2 08/03/18 16:50 61 176/74 08/03/18 16:39 18 99 Room Air 08/03/18 15:56 97.4 97.4 Lab Values Laboratory Tests Test 08/03/18 16:20 White Blood Count 5.3 x10^3/uL (4.0-11.0) Red Blood Count 3.13 x10^6/uL (3.50-5.40) L Hemoglobin 10.2 g/dL (12.0-15.5) L Hematocrit 30.9 % (36.0-47.0) L Mean Corpuscular Volume 99 fL (79-100) Mean Corpuscular Hemoglobin 33 pg (25-35) Mean Corpuscular Hemoglobin Concent 33 g/dL (31-37) Red Cell Distribution Width 15.3 % (11.5-14.5) H Platelet Count 195 x10^3/uL (140-400) Neutrophils (%) (Auto) 61 % (31-73) Lymphocytes (%) (Auto) 23 % (24-48) L Monocytes (%) (Auto) 8 % (0-9) Eosinophils (%) (Auto) 6 % (0-3) H Basophils (%) (Auto) 1 % (0-3) Neutrophils # (Auto) 3.2 x10^3uL (1.8-7.7) Lymphocytes # (Auto) 1.2 x10^3/uL (1.0-4.8) Monocytes # (Auto) 0.4 x10^3/uL (0.0-1.1) Eosinophils # (Auto) 0.3 x10^3/uL (0.0-0.7) Basophils # (Auto) 0.1 x10^3/uL (0.0-0.2) Sodium Level 136 mmol/L (136-145) Potassium Level 7.1 mmol/L (3.5-5.1) *H Chloride Level 100 mmol/L (98-107) Carbon Dioxide Level 19 mmol/L (21-32) L Anion Gap 17 (6-14) H Blood Urea Nitrogen 90 mg/dL (7-20) H Creatinine 12.3 mg/dL (0.6-1.0) H Estimated GFR (Cockcroft-Gault) 3.1 BUN/Creatinine Ratio 7 (6-20) Glucose Level 229 mg/dL (70-99) H Calcium Level 8.3 mg/dL (8.5-10.1) L Phosphorus Level 7.4 mg/dL (2.6-4.7) H Magnesium Level 2.9 mg/dL (1.8-2.4) H Total Bilirubin 0.4 mg/dL (0.2-1.0) Aspartate Amino Transferase (AST) 15 U/L (15-37) Alanine Aminotransferase (ALT) 8 U/L (14-59) L Alkaline Phosphatase 107 U/L (46-116) Total Protein 7.8 g/dL (6.4-8.2) Albumin 3.3 g/dL (3.4-5.0) L Albumin/Globulin Ratio 0.7 (1.0-1.7) L Laboratory Tests 08/03/18 16:20 Laboratory Tests 08/03/18 16:20 EKG EKG EKG interpreted by me. EKG at 1648 showed normal sinus rhythm at rate of 62, corrected QT of 459, left axis, T-wave abnormality and high lateral leads, no acute ST and T-wave abnormalities. No hyperacute T waves. Radiology/Procedures Radiology/Procedures [facility] [address] [place] [address] IMAGING REPORT Signed PATIENT: JORDY CLEVELAND ACCOUNT: [id number] : 1955 LOCATION: ER AGE: 63 SEX: F EXAM STATUS: REG ER ORD. PHYSICIAN: ANITA EDOUARD MD REASON: shortness of breath PROCEDURE: CHEST PA & LATERAL Chest, PA and Lateral: Technique: PA and lateral views of the chest were obtained. History: Shortness of breath. Comparison: 06/14/2018. Findings: Low lung volumes and technique accentuates heart size and pulmonary vascularity.. Right internal jugular dialysis catheter is unchanged.. Minimal bibasilar lung airspace opacities. Minimal prominent interstitial lung markings. Impression: 1. Minimal congestive changes. Minimal bibasilar lung airspace opacities likely atelectasis or infiltrates.. Electronically signed by: Franco Juarez MD (08/03/2018 4:38 PM) [facility] DICTATED and SIGNED BY: FRANCO JUAERZ MD DATE: 08/03/181637 Course & Med Decision Making Course & Med Decision Making Pertinent Labs and Imaging studies reviewed. (See chart for details) Evaluation of the patient in ER showed 63-year-old female patient who missed her dialysis because of problem with dialysis access. Patient was alert and oriented in no distress. Blood pressure was 195 and the patient.treated with oral clonidine. On-call banquet cook Dr. Bennett was consulted at 1627 and 1737 regarding abnormal potassium of 7.1 and recommended emergency dialysis. Plan to consult on-call interventional radiologist for dialysis access placement. Patient requiring admission for further evaluation and treatment. Discussed with Dr. Lynn who is in agreement with admission. Discussed findings and plan with patient and family, who acknowledge understanding and agreement. Dragon Disclaimer Dragon Disclaimer This electronic medical record was generated, in whole or in part, using a voice recognition dictation system. Departure Departure Impression: Primary Impression: Problem with dialysis access Additional Impressions: Missed dialysis Hypertensive urgency Hyperkalemia Hypermagnesemia Hyperphosphatemia Uncontrolled diabetes mellitus Disposition: ADMITTED INPATIENT Admitting Physician: Ricardo Hernadez (accepted admission at 1724) Condition: GUARDED Referrals: NO PCP (PCP) Critical Care Time Critical care time was 60 minutes exclusive of procedures. Problem Qualifiers Primary Impression: Problem with dialysis access Encounter type: initial encounter Qualified Codes: T82.898A - Other specified complication of vascular prosthetic devices, implants and grafts, initial encounter Additional Impressions: Uncontrolled diabetes mellitus Diabetes mellitus type: other specified (including ARCADIO) Glycemic state: with hyperglycemia Qualified Codes: E13.65 - Other specified diabetes mellitus with hyperglycemia ANITA EDOUARD MD Aug 03, 2018 16:17
[2018-08-03 16:32] LABS: BASO # 0.1 x10^3/uL (0.0-0.2); BASO % 1 % (0-3); EOS # 0.3 x10^3/uL (0.0-0.7); EOS % 6 % (0-3); HEMATOCRIT 30.9 % (36.0-47.0); HEMOGLOBIN 10.2 g/dL (12.0-15.5); LYMPH # 1.2 x10^3/uL (1.0-4.8); LYMPH % 23 % (24-48); MEAN CORPUSCULAR HEMOGLOBIN 33 pg (25-35); MEAN CORPUSCULAR HGB CONC 33 g/dL (31-37); MEAN CORPUSCULAR VOLUME 99 fL (79-100); MONO # 0.4 x10^3/uL (0.0-1.1); MONO % 8 % (0-9); NEUT # 3.2 x10^3uL (1.8-7.7); NEUT % 61 % (31-73); PLATELET COUNT 195 x10^3/uL (140-400); RED BLOOD COUNT 3.13 x10^6/uL (3.50-5.40); RED CELL DISTRIBUTION WIDTH 15.3 % (11.5-14.5); WHITE BLOOD COUNT 5.3 x10^3/uL (4.0-11.0)
--- NOTE | 2018-08-03 16:41 | RAD ---
Chest, PA and Lateral: Technique: PA and lateral views of the chest were obtained. History: Shortness of breath. Comparison: 06/14/2018. Findings: Low lung volumes and technique accentuates heart size and pulmonary vascularity.. Right internal jugular dialysis catheter is unchanged.. Minimal bibasilar lung airspace opacities. Minimal prominent interstitial lung markings. Impression: 1. Minimal congestive changes. Minimal bibasilar lung airspace opacities likely atelectasis or infiltrates.. Electronically signed by: Franco Juarez MD (08/03/2018 4:38 PM) [id number]
[2018-08-03 16:53] LABS: ALBUMIN 3.3 g/dL (3.4-5.0); ALBUMIN/GLOBULIN RATIO 0.7 (1.0-1.7); CALCIUM 8.3 mg/dL (8.5-10.1); CREATININE 12.3 mg/dL (0.6-1.0); GFR 3.1; MAGNESIUM 2.9 mg/dL (1.8-2.4); PHOSPHORUS 7.4 mg/dL (2.6-4.7); TOTAL BILIRUBIN 0.4 mg/dL (0.2-1.0); TOTAL PROTEIN 7.8 g/dL (6.4-8.2)
[2018-08-03 16:59] LABS: POTASSIUM 7.1 mmol/L (3.5-5.1)
[2018-08-03] MEDS ORDERED: DEXTROSE 50% 25 GM / 50ML DISP.SYRIN. IV ONE (17:15)
[2018-08-03] MEDS ORDERED: SODIUM BICARB ADULT 8.4% 50 MEQ/50 ML DISP.SYRIN. IV ONE (17:15)
[2018-08-03] MEDS ORDERED: ALBUTEROL SULFATE 2.5 MG/3 ML NEBU. CONT NEB ONE (17:15)
[2018-08-03] MEDS ORDERED: INSULIN REGULAR 100 UNIT/ML 3ML VIAL. IV ONE (17:15)
--- NOTE | 2018-08-03 17:24 | PDOC1 ---
History and Physical Date of Admission Date of Admission DATE: 08/03/18 TIME: 17:23 Identification/Chief Complaint Chief Complaint Identification/Chief Complaint Chief Complaint HAS NOT GONE TO DIALYSIS SINCE LAST TUESDAY Source Source: Chart review, Patient History of Present Illness Reason for Visit: THIS IS A 63 YR OLD ESRD PT WHO IS NON COMPLIANT. HAS NOT BEEN HD IN OVER A WEEK. HAS ESRD DUE TO DM II AND HTN. LABS ARE C/W ESRD AND K OF 7.1 AND HGB OF 10.2 SHE WILL NOT TAKE BLOOD PRODUCTS. SHE ALSO DOESN'T TAKE HER MEDS OR DO ANYTHING WE HAVE ASKED HER TO DO. COMPLAINTS OF WEAKNESS AND SOME SOB Past Medical History Cardiovascular: CAD, CHF, HTN, Hyperlipidemia Pulmonary: No pertinent hx, Other CENTRAL NERVOUS SYSTEM: Other GI: GERD Heme/Onc: No pertinent hx Hepatobiliary: No pertinent hx Psych: No pertinent hx Rheumatologic: No pertinent hx Infectious disease: No pertinent hx Renal/: Chronic renal failure Endocrine: Diabetes, Hyperparathyroidism Past Surgical History Past Surgical History: Other Family History Family History: Heart Disease Social History No ALCOHOL: none Drugs: None Lives: with Family Past Medical History Cardiovascular: CAD, CHF, HTN, Hyperlipidemia Pulmonary: No pertinent hx, Other CENTRAL NERVOUS SYSTEM: Other GI: GERD Heme/Onc: No pertinent hx Hepatobiliary: No pertinent hx Psych: No pertinent hx Rheumatologic: No pertinent hx Infectious disease: No pertinent hx Renal/: Chronic renal failure Endocrine: Diabetes, Hyperparathyroidism Past Surgical History Past Surgical History: Other Family History Family History: Heart Disease Social History Smoke: No ALCOHOL: none Drugs: None Current Problem List Problem List Problems Medical Problems: (1) Hypertensive urgency Status: Acute (2) Missed dialysis Status: Acute (3) Problem with dialysis access Status: Acute Current Medications Current Medications Current Medications Clonidine HCl (Catapres) 0.1 mg 1X ONCE PO Last administered on 08/03/18at 16: 50; Start 08/03/18 at 16:15; Stop 08/03/18 at 16:16; Status DC Albuterol Sulfate (Ventolin Neb Soln) 10 mg 1X ONCE CONT NEB ; Start 08/03/18 at 17:15; Stop 08/03/18 at 17:18; Status DC Dextrose (Dextrose 50%-Water Syringe) 25 gm 1X ONCE IV ; Start 08/03/18 at 17: 15; Stop 08/03/18 at 17:18; Status DC Insulin Human Regular (HumuLIN R VIAL) 10 unit 1X ONCE IV ; Start 08/03/18 at 17:15; Stop 08/03/18 at 17:18; Status DC Sodium Bicarbonate (Sodium Bicarb Adult 8.4% Syr) 50 meq 1X ONCE IV ; Start 03/13 at 17:15; Stop 08/03/18 at 17:18; Status DC Active Scripts Active Isosorbide Mononitrate Er (Isosorbide Mononitrate) 30 Mg Tab.er.24h 30 Mg PO DAILY 30 Days Furosemide 40 Mg Tablet 40 Mg PO DAILY 30 Days Clonazepam 0.5 Mg Tablet 0.5 Mg PO TID PRN 30 Days Humalog (Insulin Lispro) 100 Unit/1 Ml Insuln.pen 10 Units SQ TIDWMEALS 30 Days Lantus Solostar (Insulin Glargine,Hum.rec.anlog) 100 Unit/1 Ml Insuln.pen 7 Units SQ QHS 30 Days Atorvastatin Calcium 40 Mg Tablet 80 Mg PO QHS 30 Days Amlodipine Besylate 5 Mg Tablet 5 Mg PO DAILYWLUN 30 Days Clopidogrel (Clopidogrel Bisulfate) 75 Mg Tablet 75 Mg PO DAILY 30 Days Lisinopril 20 Mg Tablet 1 Tab PO DAILY 30 Days Aspirin Ec (Aspirin) 81 Mg Tablet.dr 81 Mg PO DAILYWBKFT 30 Days Reported Carvedilol 25 Mg Tablet 20 Mg PO BIDWMEALS Allergies Allergies: Coded Allergies: No Known Drug Allergies (Unverified , 11/28/17) ROS Review of System Review of Systems Review of Systems Constitutional: Denies fever or chills [] Eyes: Denies change in visual acuity, redness, or eye pain [] HENT: Denies nasal congestion or sore throat [] Respiratory: Denies cough, reports shortness of breath [] Cardiovascular: No additional information not addressed in HPI [] GI: Denies abdominal pain, nausea, vomiting, bloody stools or diarrhea [] : Denies dysuria or hematuria [] Musculoskeletal: Denies back pain or joint pain [] Integument: Denies rash or skin lesions [] Neurologic: Denies headache, focal weakness or sensory changes [] Endocrine: Denies polyuria or polydipsia [] 14 PT systems were reviewed and found to be within normal limits, except as documented General: YES: Fatigue, Malaise PSYCHOLOGICAL ROS: YES: Anxiety ENDOCRINE: No: Breast Changes, Galactorrhea, Hair Pattern Changes, Hot Flashes , Malaise/lethargy, Mood Swings, Palpitations, Polydipsia/polyuria, Skin Changes , Temperature Intolerance, Unexpected Weight Changes, Other Breast: No New/Changing Breast Lumps, No Nipple changes, No Nipple discharge, No Other Respiratory: YES: Shortness of breath, SOB with excertion; No: Cough, Hemoptysis, Orthopnea, Pleuritic Pain, Sputum Changes, Stridor, Tachypnea, Wheezing, Other Skin: Yes Dry Skin Physical Exam Physical Exam Physical Exam Physical Exam Constitutional: Well developed, well nourished, no acute distress, non-toxic appearance. [] HENT: Normocephalic, atraumatic Eyes: PERRLA, EOMI, conjunctiva normal, no discharge. [] Neck: Normal range of motion, no tenderness, supple, no stridor. [] Cardiovascular:Heart rate regular rhythm, no murmur [] Lungs & Thorax: Mild basilar rales Abdomen: Bowel sounds normal, soft, no tenderness, no masses, no pulsatile masses. [] Skin: Warm, dry, no erythema, no rash. [] Back: No tenderness, no CVA tenderness. [] Extremities: No tenderness, no cyanosis, no clubbing, ROM intact, no edema. [] Neurologic: Alert and oriented X 3, normal motor function, normal sensory function, no focal deficits noted. [] Psychologic: Affect normal, judgement POOR, mood normal. [] General: Alert, Oriented X3, Cooperative, mild distress HEENT: Atraumatic, EOMI Heart: RRR Breasts: Not examined Abdomen: Soft Neuro: Normal speech, Cranial nerves 3-12 NL Psych/Mental Status: Mood NL Vitals Vitals Vital Signs Date Time Temp Pulse Resp B/P (MAP) Pulse Ox O2 Delivery O2 Flow Rate FiO2 08/03/18 16:50 61 176/74 08/03/18 16:39 18 99 Room Air 08/03/18 15:56 97.4 97.4 Labs Labs Laboratory Tests Test 08/03/18 16:20 White Blood Count 5.3 x10^3/uL (4.0-11.0) Red Blood Count 3.13 x10^6/uL (3.50-5.40) Hemoglobin 10.2 g/dL (12.0-15.5) Hematocrit 30.9 % (36.0-47.0) Mean Corpuscular Volume 99 fL (79-100) Mean Corpuscular Hemoglobin 33 pg (25-35) Mean Corpuscular Hemoglobin Concent 33 g/dL (31-37) Red Cell Distribution Width 15.3 % (11.5-14.5) Platelet Count 195 x10^3/uL (140-400) Neutrophils (%) (Auto) 61 % (31-73) Lymphocytes (%) (Auto) 23 % (24-48) Monocytes (%) (Auto) 8 % (0-9) Eosinophils (%) (Auto) 6 % (0-3) Basophils (%) (Auto) 1 % (0-3) Neutrophils # (Auto) 3.2 x10^3uL (1.8-7.7) Lymphocytes # (Auto) 1.2 x10^3/uL (1.0-4.8) Monocytes # (Auto) 0.4 x10^3/uL (0.0-1.1) Eosinophils # (Auto) 0.3 x10^3/uL (0.0-0.7) Basophils # (Auto) 0.1 x10^3/uL (0.0-0.2) Sodium Level 136 mmol/L (136-145) Potassium Level 7.1 mmol/L (3.5-5.1) Chloride Level 100 mmol/L (98-107) Carbon Dioxide Level 19 mmol/L (21-32) Anion Gap 17 (6-14) Blood Urea Nitrogen 90 mg/dL (7-20) Creatinine 12.3 mg/dL (0.6-1.0) Estimated GFR (Cockcroft-Gault) 3.1 BUN/Creatinine Ratio 7 (6-20) Glucose Level 229 mg/dL (70-99) Calcium Level 8.3 mg/dL (8.5-10.1) Phosphorus Level 7.4 mg/dL (2.6-4.7) Magnesium Level 2.9 mg/dL (1.8-2.4) Total Bilirubin 0.4 mg/dL (0.2-1.0) Aspartate Amino Transf (AST/SGOT) 15 U/L (15-37) Alanine Aminotransferase (ALT/SGPT) 8 U/L (14-59) Alkaline Phosphatase 107 U/L (46-116) Total Protein 7.8 g/dL (6.4-8.2) Albumin 3.3 g/dL (3.4-5.0) Albumin/Globulin Ratio 0.7 (1.0-1.7) Laboratory Tests Test 08/03/18 16:20 White Blood Count 5.3 x10^3/uL (4.0-11.0) Red Blood Count 3.13 x10^6/uL (3.50-5.40) Hemoglobin 10.2 g/dL (12.0-15.5) Hematocrit 30.9 % (36.0-47.0) Mean Corpuscular Volume 99 fL (79-100) Mean Corpuscular Hemoglobin 33 pg (25-35) Mean Corpuscular Hemoglobin Concent 33 g/dL (31-37) Red Cell Distribution Width 15.3 % (11.5-14.5) Platelet Count 195 x10^3/uL (140-400) Neutrophils (%) (Auto) 61 % (31-73) Lymphocytes (%) (Auto) 23 % (24-48) Monocytes (%) (Auto) 8 % (0-9) Eosinophils (%) (Auto) 6 % (0-3) Basophils (%) (Auto) 1 % (0-3) Neutrophils # (Auto) 3.2 x10^3uL (1.8-7.7) Lymphocytes # (Auto) 1.2 x10^3/uL (1.0-4.8) Monocytes # (Auto) 0.4 x10^3/uL (0.0-1.1) Eosinophils # (Auto) 0.3 x10^3/uL (0.0-0.7) Basophils # (Auto) 0.1 x10^3/uL (0.0-0.2) Sodium Level 136 mmol/L (136-145) Potassium Level 7.1 mmol/L (3.5-5.1) Chloride Level 100 mmol/L (98-107) Carbon Dioxide Level 19 mmol/L (21-32) Anion Gap 17 (6-14) Blood Urea Nitrogen 90 mg/dL (7-20) Creatinine 12.3 mg/dL (0.6-1.0) Estimated GFR (Cockcroft-Gault) 3.1 BUN/Creatinine Ratio 7 (6-20) Glucose Level 229 mg/dL (70-99) Calcium Level 8.3 mg/dL (8.5-10.1) Phosphorus Level 7.4 mg/dL (2.6-4.7) Magnesium Level 2.9 mg/dL (1.8-2.4) Total Bilirubin 0.4 mg/dL (0.2-1.0) Aspartate Amino Transf (AST/SGOT) 15 U/L (15-37) Alanine Aminotransferase (ALT/SGPT) 8 U/L (14-59) Alkaline Phosphatase 107 U/L (46-116) Total Protein 7.8 g/dL (6.4-8.2) Albumin 3.3 g/dL (3.4-5.0) Albumin/Globulin Ratio 0.7 (1.0-1.7) Images Images Chest, PA and Lateral: Technique: PA and lateral views of the chest were obtained. History: Shortness of breath. Comparison: 06/14/2018. Findings: Low lung volumes and technique accentuates heart size and pulmonary vascularity.. Right internal jugular dialysis catheter is unchanged.. Minimal bibasilar lung airspace opacities. Minimal prominent interstitial lung markings. Impression: 1. Minimal congestive changes. Minimal bibasilar lung airspace opacities likely atelectasis or infiltrates.. Electronically signed by: Franco Juarez MD (08/03/2018 4:38 PM) [facility] VTE Prophylaxis Ordered VTE Prophylaxis Devices: Yes VTE Pharmacological Prophylaxi: Yes Assessment/Plan Assessment/Plan Assessment/Plan IMPRESSION 1. ESRD ON DIALYSIS 2. NONCOMPLIANCE HIGH RISK OF COMPLICATIONS// due to noncompliance 3. HX HTN 4. OBESITY 5. ACUTE VOLUME OVERLOAD 6. ANEMIA 7. Minimal bibasilar lung airspace opacities likely atelectasis or infiltrates.. PLAN ICU BED ADMIT DIALYSIS emergent tonight CONSULT NEPHROLOGY HOME MEDS [employer] NO BLOOD PRODUCTS LOWER K EMERGENTLY CONSULT DR MATIAS IN ER 43 MIN CC TIME BIJAN STEELE MD Aug 03, 2018 17:23
--- NOTE | 2018-08-03 18:55 | EKG ---
[facility] [address] [place] [address] Test Date: 2018-08-03 Test Time: 16:48:27 Pat Name: JORDY CLEVELANDDepartment: [facility] Gender: F Donor Relations Manager: [facility] ER : 1955 Requested By: ANITA EDOUARD Order Number: [id number] Reading MD: Scotty Huynh MD Measurements Intervals Mora Rate: 62 P: 37 DC: 180 QRS: -6 QRSD: 92 T: 116 QT: 450 QTc: 459 Interpretive Statements SINUS RHYTHM LVH WITH LATERAL TWI, CONSIDER ISCHEMIA BASED ON CLINICAL SCENARIO Electronically Signed On 08-14-2018 10:58:29 CDT by Scotty Huynh MD
[2018-08-03 19:20] VITALS: BP 155/63
[2018-08-03] MEDS ORDERED: 0.9 % SODIUM CHLORIDE 10 ML DISP.SYRIN. IV PRN ×2 (19:45)
[2018-08-03] MEDS ORDERED: DIALYSIS PATIENT. MC PRN ×2 (19:45)
[2018-08-03] MEDS ORDERED: IV NORMAL SALINE 1000ML BAG 1,000 ML IV PRN ×2 (20:00)
[2018-08-03] MEDS ORDERED: ALBUMIN HUMAN 25% 200 ML IV PRN (20:00)
[2018-08-03 23:54] VITALS: BP 171/55
[2018-08-04 01:59] LABS: ALBUMIN 3.5 g/dL (3.4-5.0); CALCIUM 8.3 mg/dL (8.5-10.1); CREATININE 5.1 mg/dL (0.6-1.0); GFR 8.6; PHOSPHORUS 3.5 mg/dL (2.6-4.7); POTASSIUM 3.7 mmol/L (3.5-5.1)
[2018-08-04 03:30] VITALS: BP 162/60
[2018-08-04 04:46] LABS: BASO % 1 % (0-3); EOS # 0.2 x10^3/uL (0.0-0.7); EOS % 4 % (0-3); HEMATOCRIT 31.3 % (36.0-47.0); HEMOGLOBIN 10.2 g/dL (12.0-15.5); LYMPH % 20 % (24-48); MEAN CORPUSCULAR HEMOGLOBIN 32 pg (25-35); MEAN CORPUSCULAR HGB CONC 33 g/dL (31-37); MEAN CORPUSCULAR VOLUME 97 fL (79-100); MONO # 0.4 x10^3/uL (0.0-1.1); MONO % 9 % (0-9); NEUT # 3.2 x10^3uL (1.8-7.7); NEUT % 66 % (31-73); PLATELET COUNT 164 x10^3/uL (140-400); RED BLOOD COUNT 3.22 x10^6/uL (3.50-5.40); WHITE BLOOD COUNT 4.9 x10^3/uL (4.0-11.0)
[2018-08-04 05:14] LABS: ALBUMIN 3.2 g/dL (3.4-5.0); CALCIUM 8.2 mg/dL (8.5-10.1); CREATININE 6.4 mg/dL (0.6-1.0); GFR 6.6; PHOSPHORUS 4.9 mg/dL (2.6-4.7); POTASSIUM 4.1 mmol/L (3.5-5.1)
[2018-08-04 07:00] VITALS: BP_SYST 121; BP_SYST 156; BP_DIAS 61; BP_DIAS 64
[2018-08-04] MEDS ORDERED: ALTEPLASE 1MG SYRINGE. INT CAT ONE (08:15)
[2018-08-04] MEDS ORDERED: IV NORMAL SALINE 1000ML BAG 1,000 ML IV PRN ×2 (10:05)
--- NOTE | 2018-08-04 10:13 | PDOC2 ---
CONSULT Date of Consult Date of Consult DATE: 08/04/18 TIME: 10:05 Reason for Consult Reason for Consult: ESRD Source Source: Chart review, Patient History of Present Illness Reason for Visit: Patient is a 63 year old Serbian speaking seen in ED for problem with dialysis catheter. Patient daughter states she was not able to have dialysis 4 days ago and was told to come to ER for changing the catheter but she was not able to bring her sooner. Patient complaining of shortness of breath that getting worse with supine position and denies nausea and vomiting, diarrhea and constipation, chest pain, fever and chills. Patient's last dialysis was one week ago. Chronic Hx of Non compliance , frequent hospitalizations. Dialysis last night, catheter not working well. Past Medical History Cardiovascular: CAD, CHF, HTN, Hyperlipidemia Pulmonary: No pertinent hx, Other CENTRAL NERVOUS SYSTEM: Other GI: GERD Heme/Onc: No pertinent hx Hepatobiliary: No pertinent hx Psych: No pertinent hx Rheumatologic: No pertinent hx Infectious disease: No pertinent hx Renal/: Chronic renal failure Endocrine: Diabetes, Hyperparathyroidism Past Surgical History Past Surgical History: Other Family History Family History: Heart Disease Social History No ALCOHOL: none Drugs: None Lives: with Family Current Problem List Problem List Problems Medical Problems: (1) Hyperkalemia Status: Acute (2) Hypermagnesemia Status: Acute (3) Hyperphosphatemia Status: Acute (4) Hypertensive urgency Status: Acute (5) Missed dialysis Status: Acute (6) Problem with dialysis access Status: Acute (7) Uncontrolled diabetes mellitus Status: Acute Current Medications Current Medications Current Medications Clonidine HCl (Catapres) 0.1 mg 1X ONCE PO Last administered on 08/03/18at 16: 50; Start 08/03/18 at 16:15; Stop 08/03/18 at 16:16; Status DC Albuterol Sulfate (Ventolin Neb Soln) 10 mg 1X ONCE CONT NEB Last administered on 08/03/18at 17:32; Start 08/03/18 at 17:15; Stop 08/03/18 at 17:18 ; Status DC Dextrose (Dextrose 50%-Water Syringe) 25 gm 1X ONCE IV Last administered on 03/13at 17:41; Start 08/03/18 at 17:15; Stop 08/03/18 at 17:18; Status DC Insulin Human Regular (HumuLIN R VIAL) 10 unit 1X ONCE IV Last administered on 08/03/18at 17:45; Start 08/03/18 at 17:15; Stop 08/03/18 at 17:18; Status DC Sodium Bicarbonate (Sodium Bicarb Adult 8.4% Syr) 50 meq 1X ONCE IV Last administered on 08/03/18at 17:46; Start 08/03/18 at 17:15; Stop 08/03/18 at 17:18 ; Status DC Sodium Chloride 1,000 ml @ 1,000 mls/hr Q1H PRN IV hypotension; Start 08/03/18 at 20:00; Stop 08/04/18 at 06:00; Status DC Albumin Human 200 ml @ 200 mls/hr 1X PRN PRN IV Hypotension; Start 08/03/18 at 20:00; Stop 08/04/18 at 06:00; Status DC Sodium Chloride (Normal Saline Flush) 10 ml 1X PRN PRN IV AP catheter pack; Start 08/03/18 at 19:45; Stop 08/04/18 at 06:00; Status DC Sodium Chloride (Normal Saline Flush) 10 ml 1X PRN PRN IV PERSONNEL SCHEDULER catheter pack; Start 08/03/18 at 19:45; Stop 08/04/18 at 06:00; Status DC Sodium Chloride 1,000 ml @ 400 mls/hr Q2H30M PRN IV PATENCY; Start 08/03/18 at 20:00; Stop 08/04/18 at 06:00; Status DC Info (PHARMACY MONITORING -- do not chart) 1 each PRN DAILY PRN MC SEE COMMENTS ; Start 08/03/18 at 19:45 Info (PHARMACY MONITORING -- do not chart) 1 each PRN DAILY PRN MC SEE COMMENTS ; Start 08/03/18 at 19:45; Status UNV Alteplase, Recombinant (Cathflo For Central Catheter Clearance) 2 mg 1X ONCE INT CAT Last administered on 08/04/18at 08:50; Start 08/04/18 at 08:15; Stop 04/12 at 08:16; Status DC Active Scripts Active Isosorbide Mononitrate Er (Isosorbide Mononitrate) 30 Mg Tab.er.24h 30 Mg PO DAILY 30 Days Furosemide 40 Mg Tablet 40 Mg PO DAILY 30 Days Clonazepam 0.5 Mg Tablet 0.5 Mg PO TID PRN 30 Days Humalog (Insulin Lispro) 100 Unit/1 Ml Insuln.pen 10 Units SQ TIDWMEALS 30 Days Lantus Solostar (Insulin Glargine,Hum.rec.anlog) 100 Unit/1 Ml Insuln.pen 7 Units SQ QHS 30 Days Atorvastatin Calcium 40 Mg Tablet 80 Mg PO QHS 30 Days Amlodipine Besylate 5 Mg Tablet 5 Mg PO DAILYWLUN 30 Days Clopidogrel (Clopidogrel Bisulfate) 75 Mg Tablet 75 Mg PO DAILY 30 Days Lisinopril 20 Mg Tablet 1 Tab PO DAILY 30 Days Aspirin Ec (Aspirin) 81 Mg Tablet.dr 81 Mg PO DAILYWBKFT 30 Days Reported Carvedilol 25 Mg Tablet 20 Mg PO BIDWMEALS Allergies Allergies: Coded Allergies: No Known Drug Allergies (Unverified , 11/28/17) ROS Review of System As per HPI Physical Exam Physical Exam GEN: NAD HEEN: OM moist NECK: Supple CVS: RRR RESP: CTA Bilat, No Acc. Muscle Use GI: BS + ve, NO Bruit, Non Tender, : No CVA tenderness, No Suprapubic Tenderness, No Schuster NEURO- AXOX3 Derm- No Rash Vital Signs Vital Signs Date Time Temp Pulse Resp B/P (MAP) Pulse Ox O2 Delivery O2 Flow Rate FiO2 08/04/18 07:00 98.0 66 18 156/61 (92) 99 Room Air 98.0 Assessment & Plan ESRD-- Chronic Non compliance, came with BUN 90 Pt was advised by OP Dialysis Unit to go to ED for TDC replacement They decided to wait and came to ER last night 4-5 days later Emergent HD last night for Hyperkalemia HD cath non functioning well, will retry this am , may need to change Hyperkalemia --Resolved with HD last night HTN- Improved Post HD Continue Antihypertensives Labs Labs Laboratory Tests Test 08/03/18 16:20 08/04/18 00:05 08/04/18 04:30 08/04/18 08:09 White Blood Count 5.3 x10^3/uL (4.0-11.0) 4.9 x10^3/uL (4.0-11.0) Red Blood Count 3.13 x10^6/uL (3.50-5.40) 3.22 x10^6/uL (3.50-5.40) Hemoglobin 10.2 g/dL (12.0-15.5) 10.2 g/dL (12.0-15.5) Hematocrit 30.9 % (36.0-47.0) 31.3 % (36.0-47.0) Mean Corpuscular Volume 99 fL (79-100) 97 fL (79-100) Mean Corpuscular Hemoglobin 33 pg (25-35) 32 pg (25-35) Mean Corpuscular Hemoglobin Concent 33 g/dL (31-37) 33 g/dL (31-37) Red Cell Distribution Width 15.3 % (11.5-14.5) 15.0 % (11.5-14.5) Platelet Count 195 x10^3/uL (140-400) 164 x10^3/uL (140-400) Neutrophils (%) (Auto) 61 % (31-73) 66 % (31-73) Lymphocytes (%) (Auto) 23 % (24-48) 20 % (24-48) Monocytes (%) (Auto) 8 % (0-9) 9 % (0-9) Eosinophils (%) (Auto) 6 % (0-3) 4 % (0-3) Basophils (%) (Auto) 1 % (0-3) 1 % (0-3) Neutrophils # (Auto) 3.2 x10^3uL (1.8-7.7) 3.2 x10^3uL (1.8-7.7) Lymphocytes # (Auto) 1.2 x10^3/uL (1.0-4.8) 1.0 x10^3/uL (1.0-4.8) Monocytes # (Auto) 0.4 x10^3/uL (0.0-1.1) 0.4 x10^3/uL (0.0-1.1) Eosinophils # (Auto) 0.3 x10^3/uL (0.0-0.7) 0.2 x10^3/uL (0.0-0.7) Basophils # (Auto) 0.1 x10^3/uL (0.0-0.2) 0.0 x10^3/uL (0.0-0.2) Sodium Level 136 mmol/L (136-145) 138 mmol/L (136-145) 139 mmol/L (136-145) Potassium Level 7.1 mmol/L (3.5-5.1) 3.7 mmol/L (3.5-5.1) 4.1 mmol/L (3.5-5.1) Chloride Level 100 mmol/L (98-107) 99 mmol/L (98-107) 99 mmol/L (98-107) Carbon Dioxide Level 19 mmol/L (21-32) 27 mmol/L (21-32) 29 mmol/L (21-32) Anion Gap 17 (6-14) 12 (6-14) 11 (6-14) Blood Urea Nitrogen 90 mg/dL (7-20) 29 mg/dL (7-20) 36 mg/dL (7-20) Creatinine 12.3 mg/dL (0.6-1.0) 5.1 mg/dL (0.6-1.0) 6.4 mg/dL (0.6-1.0) Estimated GFR (Cockcroft-Gault) 3.1 8.6 6.6 BUN/Creatinine Ratio 7 (6-20) Glucose Level 229 mg/dL (70-99) 115 mg/dL (70-99) 201 mg/dL (70-99) Calcium Level 8.3 mg/dL (8.5-10.1) 8.3 mg/dL (8.5-10.1) 8.2 mg/dL (8.5-10.1) Phosphorus Level 7.4 mg/dL (2.6-4.7) 3.5 mg/dL (2.6-4.7) 4.9 mg/dL (2.6-4.7) Magnesium Level 2.9 mg/dL (1.8-2.4) Total Bilirubin 0.4 mg/dL (0.2-1.0) Aspartate Amino Transf (AST/SGOT) 15 U/L (15-37) Alanine Aminotransferase (ALT/SGPT) 8 U/L (14-59) Alkaline Phosphatase 107 U/L (46-116) Total Protein 7.8 g/dL (6.4-8.2) Albumin 3.3 g/dL (3.4-5.0) 3.5 g/dL (3.4-5.0) 3.2 g/dL (3.4-5.0) Albumin/Globulin Ratio 0.7 (1.0-1.7) Glucose (Fingerstick) 168 mg/dL (70-99) Laboratory Tests Test 08/03/18 16:20 08/04/18 00:05 08/04/18 04:30 08/04/18 08:09 White Blood Count 5.3 x10^3/uL (4.0-11.0) 4.9 x10^3/uL (4.0-11.0) Red Blood Count 3.13 x10^6/uL (3.50-5.40) 3.22 x10^6/uL (3.50-5.40) Hemoglobin 10.2 g/dL (12.0-15.5) 10.2 g/dL (12.0-15.5) Hematocrit 30.9 % (36.0-47.0) 31.3 % (36.0-47.0) Mean Corpuscular Volume 99 fL (79-100) 97 fL (79-100) Mean Corpuscular Hemoglobin 33 pg (25-35) 32 pg (25-35) Mean Corpuscular Hemoglobin Concent 33 g/dL (31-37) 33 g/dL (31-37) Red Cell Distribution Width 15.3 % (11.5-14.5) 15.0 % (11.5-14.5) Platelet Count 195 x10^3/uL (140-400) 164 x10^3/uL (140-400) Neutrophils (%) (Auto) 61 % (31-73) 66 % (31-73) Lymphocytes (%) (Auto) 23 % (24-48) 20 % (24-48) Monocytes (%) (Auto) 8 % (0-9) 9 % (0-9) Eosinophils (%) (Auto) 6 % (0-3) 4 % (0-3) Basophils (%) (Auto) 1 % (0-3) 1 % (0-3) Neutrophils # (Auto) 3.2 x10^3uL (1.8-7.7) 3.2 x10^3uL (1.8-7.7) Lymphocytes # (Auto) 1.2 x10^3/uL (1.0-4.8) 1.0 x10^3/uL (1.0-4.8) Monocytes # (Auto) 0.4 x10^3/uL (0.0-1.1) 0.4 x10^3/uL (0.0-1.1) Eosinophils # (Auto) 0.3 x10^3/uL (0.0-0.7) 0.2 x10^3/uL (0.0-0.7) Basophils # (Auto) 0.1 x10^3/uL (0.0-0.2) 0.0 x10^3/uL (0.0-0.2) Sodium Level 136 mmol/L (136-145) 138 mmol/L (136-145) 139 mmol/L (136-145) Potassium Level 7.1 mmol/L (3.5-5.1) 3.7 mmol/L (3.5-5.1) 4.1 mmol/L (3.5-5.1) Chloride Level 100 mmol/L (98-107) 99 mmol/L (98-107) 99 mmol/L (98-107) Carbon Dioxide Level 19 mmol/L (21-32) 27 mmol/L (21-32) 29 mmol/L (21-32) Anion Gap 17 (6-14) 12 (6-14) 11 (6-14) Blood Urea Nitrogen 90 mg/dL (7-20) 29 mg/dL (7-20) 36 mg/dL (7-20) Creatinine 12.3 mg/dL (0.6-1.0) 5.1 mg/dL (0.6-1.0) 6.4 mg/dL (0.6-1.0) Estimated GFR (Cockcroft-Gault) 3.1 8.6 6.6 BUN/Creatinine Ratio 7 (6-20) Glucose Level 229 mg/dL (70-99) 115 mg/dL (70-99) 201 mg/dL (70-99) Calcium Level 8.3 mg/dL (8.5-10.1) 8.3 mg/dL (8.5-10.1) 8.2 mg/dL (8.5-10.1) Phosphorus Level 7.4 mg/dL (2.6-4.7) 3.5 mg/dL (2.6-4.7) 4.9 mg/dL (2.6-4.7) Magnesium Level 2.9 mg/dL (1.8-2.4) Total Bilirubin 0.4 mg/dL (0.2-1.0) Aspartate Amino Transf (AST/SGOT) 15 U/L (15-37) Alanine Aminotransferase (ALT/SGPT) 8 U/L (14-59) Alkaline Phosphatase 107 U/L (46-116) Total Protein 7.8 g/dL (6.4-8.2) Albumin 3.3 g/dL (3.4-5.0) 3.5 g/dL (3.4-5.0) 3.2 g/dL (3.4-5.0) Albumin/Globulin Ratio 0.7 (1.0-1.7) Glucose (Fingerstick) 168 mg/dL (70-99) Review All relevant outside records, renal labs, imaging studies, telemetry/EKG's were reviewed. JAIMEE MATIAS MD Aug 04, 2018 10:13
[2018-08-04] MEDS ORDERED: DIALYSIS PATIENT. MC PRN ×2 (10:15)
--- NOTE | 2018-08-04 10:26 | PDOC ---
PROGRESS NOTES History of Present Illness History of Present Illness Assessment/Plan Assessment/Plan Assessment/Plan IMPRESSION 1. ESRD ON DIALYSIS 2. NONCOMPLIANCE remains at HIGH RISK OF COMPLICATIONS// due to noncompliance with dialysis 3. HX HTN 4. OBESITY 5. ACUTE VOLUME OVERLOAD 6. ANEMIA 7. Minimal bibasilar lung airspace opacities likely atelectasis or infiltrates.. PLAN tele BED ADMIT DIALYSIS emergent 08/03 CONSULT NEPHROLOGY HOME MEDS BAPTISM YARSANISM NO BLOOD PRODUCTS LOWER K EMERGENTLY CONSULT DR MATIAS Vitals Vitals Vital Signs Date Time Temp Pulse Resp B/P (MAP) Pulse Ox O2 Delivery O2 Flow Rate FiO2 08/04/18 07:00 98.0 66 18 156/61 (92) 99 Room Air 98.0 Physical Exam General: Alert, Oriented X3, Cooperative, No acute distress, mild distress Heart: Regular rate, Normal S1 Lungs: Crackles, Other Abdomen: Soft Extremities: No clubbing, No cyanosis Skin: No significant lesion Labs LABS Laboratory Tests Test 08/03/18 16:20 08/04/18 00:05 08/04/18 04:30 08/04/18 08:09 White Blood Count 5.3 x10^3/uL (4.0-11.0) 4.9 x10^3/uL (4.0-11.0) Red Blood Count 3.13 x10^6/uL (3.50-5.40) 3.22 x10^6/uL (3.50-5.40) Hemoglobin 10.2 g/dL (12.0-15.5) 10.2 g/dL (12.0-15.5) Hematocrit 30.9 % (36.0-47.0) 31.3 % (36.0-47.0) Mean Corpuscular Volume 99 fL (79-100) 97 fL (79-100) Mean Corpuscular Hemoglobin 33 pg (25-35) 32 pg (25-35) Mean Corpuscular Hemoglobin Concent 33 g/dL (31-37) 33 g/dL (31-37) Red Cell Distribution Width 15.3 % (11.5-14.5) 15.0 % (11.5-14.5) Platelet Count 195 x10^3/uL (140-400) 164 x10^3/uL (140-400) Neutrophils (%) (Auto) 61 % (31-73) 66 % (31-73) Lymphocytes (%) (Auto) 23 % (24-48) 20 % (24-48) Monocytes (%) (Auto) 8 % (0-9) 9 % (0-9) Eosinophils (%) (Auto) 6 % (0-3) 4 % (0-3) Basophils (%) (Auto) 1 % (0-3) 1 % (0-3) Neutrophils # (Auto) 3.2 x10^3uL (1.8-7.7) 3.2 x10^3uL (1.8-7.7) Lymphocytes # (Auto) 1.2 x10^3/uL (1.0-4.8) 1.0 x10^3/uL (1.0-4.8) Monocytes # (Auto) 0.4 x10^3/uL (0.0-1.1) 0.4 x10^3/uL (0.0-1.1) Eosinophils # (Auto) 0.3 x10^3/uL (0.0-0.7) 0.2 x10^3/uL (0.0-0.7) Basophils # (Auto) 0.1 x10^3/uL (0.0-0.2) 0.0 x10^3/uL (0.0-0.2) Sodium Level 136 mmol/L (136-145) 138 mmol/L (136-145) 139 mmol/L (136-145) Potassium Level 7.1 mmol/L (3.5-5.1) 3.7 mmol/L (3.5-5.1) 4.1 mmol/L (3.5-5.1) Chloride Level 100 mmol/L (98-107) 99 mmol/L (98-107) 99 mmol/L (98-107) Carbon Dioxide Level 19 mmol/L (21-32) 27 mmol/L (21-32) 29 mmol/L (21-32) Anion Gap 17 (6-14) 12 (6-14) 11 (6-14) Blood Urea Nitrogen 90 mg/dL (7-20) 29 mg/dL (7-20) 36 mg/dL (7-20) Creatinine 12.3 mg/dL (0.6-1.0) 5.1 mg/dL (0.6-1.0) 6.4 mg/dL (0.6-1.0) Estimated GFR (Cockcroft-Gault) 3.1 8.6 6.6 BUN/Creatinine Ratio 7 (6-20) Glucose Level 229 mg/dL (70-99) 115 mg/dL (70-99) 201 mg/dL (70-99) Calcium Level 8.3 mg/dL (8.5-10.1) 8.3 mg/dL (8.5-10.1) 8.2 mg/dL (8.5-10.1) Phosphorus Level 7.4 mg/dL (2.6-4.7) 3.5 mg/dL (2.6-4.7) 4.9 mg/dL (2.6-4.7) Magnesium Level 2.9 mg/dL (1.8-2.4) Total Bilirubin 0.4 mg/dL (0.2-1.0) Aspartate Amino Transf (AST/SGOT) 15 U/L (15-37) Alanine Aminotransferase (ALT/SGPT) 8 U/L (14-59) Alkaline Phosphatase 107 U/L (46-116) Total Protein 7.8 g/dL (6.4-8.2) Albumin 3.3 g/dL (3.4-5.0) 3.5 g/dL (3.4-5.0) 3.2 g/dL (3.4-5.0) Albumin/Globulin Ratio 0.7 (1.0-1.7) Glucose (Fingerstick) 168 mg/dL (70-99) Assessment and Plan Assessmemt and Plan Problems Medical Problems: (1) Hyperkalemia Status: Acute (2) Hypermagnesemia Status: Acute (3) Hyperphosphatemia Status: Acute (4) Hypertensive urgency Status: Acute (5) Missed dialysis Status: Acute (6) Problem with dialysis access Status: Acute (7) Uncontrolled diabetes mellitus Status: Acute Comment Review of Relevant I have reviewed the following items fede (where applicable) has been applied. Labs Laboratory Tests Test 08/03/18 16:20 08/04/18 00:05 08/04/18 04:30 08/04/18 08:09 White Blood Count 5.3 x10^3/uL (4.0-11.0) 4.9 x10^3/uL (4.0-11.0) Red Blood Count 3.13 x10^6/uL (3.50-5.40) 3.22 x10^6/uL (3.50-5.40) Hemoglobin 10.2 g/dL (12.0-15.5) 10.2 g/dL (12.0-15.5) Hematocrit 30.9 % (36.0-47.0) 31.3 % (36.0-47.0) Mean Corpuscular Volume 99 fL (79-100) 97 fL (79-100) Mean Corpuscular Hemoglobin 33 pg (25-35) 32 pg (25-35) Mean Corpuscular Hemoglobin Concent 33 g/dL (31-37) 33 g/dL (31-37) Red Cell Distribution Width 15.3 % (11.5-14.5) 15.0 % (11.5-14.5) Platelet Count 195 x10^3/uL (140-400) 164 x10^3/uL (140-400) Neutrophils (%) (Auto) 61 % (31-73) 66 % (31-73) Lymphocytes (%) (Auto) 23 % (24-48) 20 % (24-48) Monocytes (%) (Auto) 8 % (0-9) 9 % (0-9) Eosinophils (%) (Auto) 6 % (0-3) 4 % (0-3) Basophils (%) (Auto) 1 % (0-3) 1 % (0-3) Neutrophils # (Auto) 3.2 x10^3uL (1.8-7.7) 3.2 x10^3uL (1.8-7.7) Lymphocytes # (Auto) 1.2 x10^3/uL (1.0-4.8) 1.0 x10^3/uL (1.0-4.8) Monocytes # (Auto) 0.4 x10^3/uL (0.0-1.1) 0.4 x10^3/uL (0.0-1.1) Eosinophils # (Auto) 0.3 x10^3/uL (0.0-0.7) 0.2 x10^3/uL (0.0-0.7) Basophils # (Auto) 0.1 x10^3/uL (0.0-0.2) 0.0 x10^3/uL (0.0-0.2) Sodium Level 136 mmol/L (136-145) 138 mmol/L (136-145) 139 mmol/L (136-145) Potassium Level 7.1 mmol/L (3.5-5.1) 3.7 mmol/L (3.5-5.1) 4.1 mmol/L (3.5-5.1) Chloride Level 100 mmol/L (98-107) 99 mmol/L (98-107) 99 mmol/L (98-107) Carbon Dioxide Level 19 mmol/L (21-32) 27 mmol/L (21-32) 29 mmol/L (21-32) Anion Gap 17 (6-14) 12 (6-14) 11 (6-14) Blood Urea Nitrogen 90 mg/dL (7-20) 29 mg/dL (7-20) 36 mg/dL (7-20) Creatinine 12.3 mg/dL (0.6-1.0) 5.1 mg/dL (0.6-1.0) 6.4 mg/dL (0.6-1.0) Estimated GFR (Cockcroft-Gault) 3.1 8.6 6.6 BUN/Creatinine Ratio 7 (6-20) Glucose Level 229 mg/dL (70-99) 115 mg/dL (70-99) 201 mg/dL (70-99) Calcium Level 8.3 mg/dL (8.5-10.1) 8.3 mg/dL (8.5-10.1) 8.2 mg/dL (8.5-10.1) Phosphorus Level 7.4 mg/dL (2.6-4.7) 3.5 mg/dL (2.6-4.7) 4.9 mg/dL (2.6-4.7) Magnesium Level 2.9 mg/dL (1.8-2.4) Total Bilirubin 0.4 mg/dL (0.2-1.0) Aspartate Amino Transf (AST/SGOT) 15 U/L (15-37) Alanine Aminotransferase (ALT/SGPT) 8 U/L (14-59) Alkaline Phosphatase 107 U/L (46-116) Total Protein 7.8 g/dL (6.4-8.2) Albumin 3.3 g/dL (3.4-5.0) 3.5 g/dL (3.4-5.0) 3.2 g/dL (3.4-5.0) Albumin/Globulin Ratio 0.7 (1.0-1.7) Glucose (Fingerstick) 168 mg/dL (70-99) Laboratory Tests Test 08/03/18 16:20 08/04/18 00:05 08/04/18 04:30 08/04/18 08:09 White Blood Count 5.3 x10^3/uL (4.0-11.0) 4.9 x10^3/uL (4.0-11.0) Red Blood Count 3.13 x10^6/uL (3.50-5.40) 3.22 x10^6/uL (3.50-5.40) Hemoglobin 10.2 g/dL (12.0-15.5) 10.2 g/dL (12.0-15.5) Hematocrit 30.9 % (36.0-47.0) 31.3 % (36.0-47.0) Mean Corpuscular Volume 99 fL (79-100) 97 fL (79-100) Mean Corpuscular Hemoglobin 33 pg (25-35) 32 pg (25-35) Mean Corpuscular Hemoglobin Concent 33 g/dL (31-37) 33 g/dL (31-37) Red Cell Distribution Width 15.3 % (11.5-14.5) 15.0 % (11.5-14.5) Platelet Count 195 x10^3/uL (140-400) 164 x10^3/uL (140-400) Neutrophils (%) (Auto) 61 % (31-73) 66 % (31-73) Lymphocytes (%) (Auto) 23 % (24-48) 20 % (24-48) Monocytes (%) (Auto) 8 % (0-9) 9 % (0-9) Eosinophils (%) (Auto) 6 % (0-3) 4 % (0-3) Basophils (%) (Auto) 1 % (0-3) 1 % (0-3) Neutrophils # (Auto) 3.2 x10^3uL (1.8-7.7) 3.2 x10^3uL (1.8-7.7) Lymphocytes # (Auto) 1.2 x10^3/uL (1.0-4.8) 1.0 x10^3/uL (1.0-4.8) Monocytes # (Auto) 0.4 x10^3/uL (0.0-1.1) 0.4 x10^3/uL (0.0-1.1) Eosinophils # (Auto) 0.3 x10^3/uL (0.0-0.7) 0.2 x10^3/uL (0.0-0.7) Basophils # (Auto) 0.1 x10^3/uL (0.0-0.2) 0.0 x10^3/uL (0.0-0.2) Sodium Level 136 mmol/L (136-145) 138 mmol/L (136-145) 139 mmol/L (136-145) Potassium Level 7.1 mmol/L (3.5-5.1) 3.7 mmol/L (3.5-5.1) 4.1 mmol/L (3.5-5.1) Chloride Level 100 mmol/L (98-107) 99 mmol/L (98-107) 99 mmol/L (98-107) Carbon Dioxide Level 19 mmol/L (21-32) 27 mmol/L (21-32) 29 mmol/L (21-32) Anion Gap 17 (6-14) 12 (6-14) 11 (6-14) Blood Urea Nitrogen 90 mg/dL (7-20) 29 mg/dL (7-20) 36 mg/dL (7-20) Creatinine 12.3 mg/dL (0.6-1.0) 5.1 mg/dL (0.6-1.0) 6.4 mg/dL (0.6-1.0) Estimated GFR (Cockcroft-Gault) 3.1 8.6 6.6 BUN/Creatinine Ratio 7 (6-20) Glucose Level 229 mg/dL (70-99) 115 mg/dL (70-99) 201 mg/dL (70-99) Calcium Level 8.3 mg/dL (8.5-10.1) 8.3 mg/dL (8.5-10.1) 8.2 mg/dL (8.5-10.1) Phosphorus Level 7.4 mg/dL (2.6-4.7) 3.5 mg/dL (2.6-4.7) 4.9 mg/dL (2.6-4.7) Magnesium Level 2.9 mg/dL (1.8-2.4) Total Bilirubin 0.4 mg/dL (0.2-1.0) Aspartate Amino Transf (AST/SGOT) 15 U/L (15-37) Alanine Aminotransferase (ALT/SGPT) 8 U/L (14-59) Alkaline Phosphatase 107 U/L (46-116) Total Protein 7.8 g/dL (6.4-8.2) Albumin 3.3 g/dL (3.4-5.0) 3.5 g/dL (3.4-5.0) 3.2 g/dL (3.4-5.0) Albumin/Globulin Ratio 0.7 (1.0-1.7) Glucose (Fingerstick) 168 mg/dL (70-99) Medications Current Medications Clonidine HCl (Catapres) 0.1 mg 1X ONCE PO Last administered on 08/03/18at 16: 50; Start 08/03/18 at 16:15; Stop 08/03/18 at 16:16; Status DC Albuterol Sulfate (Ventolin Neb Soln) 10 mg 1X ONCE CONT NEB Last administered on 08/03/18at 17:32; Start 08/03/18 at 17:15; Stop 08/03/18 at 17:18 ; Status DC Dextrose (Dextrose 50%-Water Syringe) 25 gm 1X ONCE IV Last administered on 03/13at 17:41; Start 08/03/18 at 17:15; Stop 08/03/18 at 17:18; Status DC Insulin Human Regular (HumuLIN R VIAL) 10 unit 1X ONCE IV Last administered on 08/03/18at 17:45; Start 08/03/18 at 17:15; Stop 08/03/18 at 17:18; Status DC Sodium Bicarbonate (Sodium Bicarb Adult 8.4% Syr) 50 meq 1X ONCE IV Last administered on 08/03/18at 17:46; Start 08/03/18 at 17:15; Stop 08/03/18 at 17:18 ; Status DC Sodium Chloride 1,000 ml @ 1,000 mls/hr Q1H PRN IV hypotension; Start 08/03/18 at 20:00; Stop 08/04/18 at 06:00; Status DC Albumin Human 200 ml @ 200 mls/hr 1X PRN PRN IV Hypotension; Start 08/03/18 at 20:00; Stop 08/04/18 at 06:00; Status DC Sodium Chloride (Normal Saline Flush) 10 ml 1X PRN PRN IV AP catheter pack; Start 08/03/18 at 19:45; Stop 08/04/18 at 06:00; Status DC Sodium Chloride (Normal Saline Flush) 10 ml 1X PRN PRN IV CORRECTIONAL SERGEANT catheter pack; Start 08/03/18 at 19:45; Stop 08/04/18 at 06:00; Status DC Sodium Chloride 1,000 ml @ 400 mls/hr Q2H30M PRN IV PATENCY; Start 08/03/18 at 20:00; Stop 08/04/18 at 06:00; Status DC Info (PHARMACY MONITORING -- do not chart) 1 each PRN DAILY PRN MC SEE COMMENTS ; Start 08/03/18 at 19:45 Info (PHARMACY MONITORING -- do not chart) 1 each PRN DAILY PRN MC SEE COMMENTS ; Start 08/03/18 at 19:45; Status UNV Alteplase, Recombinant (Cathflo For Central Catheter Clearance) 2 mg 1X ONCE INT CAT Last administered on 08/04/18at 08:50; Start 08/04/18 at 08:15; Stop 04/12 at 08:16; Status DC Sodium Chloride 1,000 ml @ 1,000 mls/hr Q1H PRN IV hypotension; Start 08/04/18 at 10:05; Stop 08/04/18 at 16:30 Sodium Chloride 1,000 ml @ 400 mls/hr Q2H30M PRN IV PATENCY; Start 08/04/18 at 10:05; Stop 08/04/18 at 16:30 Info (PHARMACY MONITORING -- do not chart) 1 each PRN DAILY PRN MC SEE COMMENTS ; Start 08/04/18 at 10:15; Status UNV Info (PHARMACY MONITORING -- do not chart) 1 each PRN DAILY PRN MC SEE COMMENTS ; Start 08/04/18 at 10:15; Status UNV Active Scripts Active Isosorbide Mononitrate Er (Isosorbide Mononitrate) 30 Mg Tab.er.24h 30 Mg PO DAILY 30 Days Furosemide 40 Mg Tablet 40 Mg PO DAILY 30 Days Clonazepam 0.5 Mg Tablet 0.5 Mg PO TID PRN 30 Days Humalog (Insulin Lispro) 100 Unit/1 Ml Insuln.pen 10 Units SQ TIDWMEALS 30 Days Lantus Solostar (Insulin Glargine,Hum.rec.anlog) 100 Unit/1 Ml Insuln.pen 7 Units SQ QHS 30 Days Atorvastatin Calcium 40 Mg Tablet 80 Mg PO QHS 30 Days Amlodipine Besylate 5 Mg Tablet 5 Mg PO DAILYWLUN 30 Days Clopidogrel (Clopidogrel Bisulfate) 75 Mg Tablet 75 Mg PO DAILY 30 Days Lisinopril 20 Mg Tablet 1 Tab PO DAILY 30 Days Aspirin Ec (Aspirin) 81 Mg Tablet.dr 81 Mg PO DAILYWBKFT 30 Days Reported Carvedilol 25 Mg Tablet 20 Mg PO BIDWMEALS Vitals/I & O Vital Sign - Last 24 Hours 08/03/18 08/03/18 08/03/18 08/03/18 15:56 16:39 16:50 16:51 Temp 97.4 97.4 Pulse 68 62 61 62 Resp 18 18 18 B/P (MAP) 194/87 (122) 176/74 (108) 176/74 173/74 (107) Pulse Ox 99 99 99 O2 Delivery Room Air Room Air Room Air 08/03/18 08/03/18 08/03/18 08/03/18 17:01 17:31 17:32 18:01 Pulse 60 60 62 Resp 18 18 18 B/P (MAP) 163/71 (101) 181/77 (111) 180/77 (111) Pulse Ox 98 96 98 99 O2 Delivery Room Air Room Air Room Air Room Air 08/03/18 08/03/18 08/03/18 08/04/18 19:20 19:20 23:54 03:30 Temp 97.6 97.6 97.6 97.6 97.6 97.6 Pulse 58 63 76 Resp 18 18 18 B/P (MAP) 155/63 (93) 171/55 (93) 162/60 (94) Pulse Ox 98 98 97 O2 Delivery Room Air Room Air Room Air Room Air 08/04/18 07:00 Temp 98.0 98.0 Pulse 66 Resp 18 B/P (MAP) 156/61 (92) Pulse Ox 99 O2 Delivery Room Air Intake and Output 08/03/18 08/03/18 08/04/18 15:00 23:00 07:00 Intake Total 350 ml Balance 350 ml BIJAN STEELE MD Aug 04, 2018 10:26
[2018-08-04 12:04] LABS: PROTHROMBIN TIME PATIENT 13.1 SEC (11.7-14.0)
--- NOTE | 2018-08-04 14:01 | NUR ---
SW following pt for anticipated dc needs. Pt has OP HD at [facility] on Tue, Tue and Tuesday at 1600. No other needs noted at this time.
[2018-08-04] MEDS ORDERED: LIDOCAINE 1%/EPI 1:100,000 20 ML VIAL. ONE (14:53)
[2018-08-04 15:00] VITALS: BP 180/66
[2018-08-04] MEDS ORDERED: fentaNYL PF VIAL 100 MCG/2 ML VIAL ONE (15:42)
[2018-08-04] MEDS ORDERED: MIDAZOLAM HCL/PF 2 MG/2 ML VIAL. ONE (15:42)
[2018-08-04 16:14] VITALS: BP 145/63
[2018-08-04] MEDS ORDERED: fentaNYL PF VIAL 100 MCG/2 ML VIAL IV ONE (16:15)
[2018-08-04] MEDS ORDERED: MIDAZOLAM HCL/PF 2 MG/2 ML VIAL. IV ONE (16:15)
[2018-08-04] MEDS ORDERED: LIDOCAINE 1%/EPI 1:100,000 20 ML VIAL. IJ ONE (16:15)
--- NOTE | 2018-08-04 16:47 | RAD ---
Replacement of the pre-existing right internal jugular tunnel dialysis catheter over guidewire 08/04/2018 Indication: Nonfunctional catheter Discussion: The risks and benefits of the procedure discussed the patient and her daughter. Informed consent was obtained. Timeout procedure was performed. The pre-existing catheter was evaluated fluoroscopically and found to be somewhat high cavoatrial junction. The right upper chest including the catheter was prepped and draped using sterile barrier technique. 1% lidocaine was administered for local anesthesia. Guidewire was advanced to the pre-existing catheter into the IVC. The catheter was removed using blunt dissection and traction. A new 23 cm tipped cuff palindrome dialysis catheter was advanced such that its tip was in the proximal right atrium with the patient supine position. The catheter secured in place. Sterile dressings were applied. The new catheter was found to flush and aspirate normally. Fluoroscopy time: 0.4MIN Dose area product: 1 [id number] The procedures performed under conscious sedation including continuous cardiopulmonary monitoring via dedicated sedation nurse. [id number] sedation time: 20 minutes Impression: Replacement of right internal jugular tunnel dialysis catheter as described
[2018-08-04 19:30] VITALS: BP 136/46
[2018-08-04 23:32] VITALS: BP 140/57
[2018-08-05 03:59] VITALS: BP 162/52
[2018-08-05 04:47] LABS: BASO % 1 % (0-3); EOS # 0.3 x10^3/uL (0.0-0.7); EOS % 6 % (0-3); HEMATOCRIT 32.3 % (36.0-47.0); HEMOGLOBIN 10.5 g/dL (12.0-15.5); LYMPH # 1.5 x10^3/uL (1.0-4.8); LYMPH % 28 % (24-48); MEAN CORPUSCULAR HEMOGLOBIN 32 pg (25-35); MEAN CORPUSCULAR HGB CONC 33 g/dL (31-37); MEAN CORPUSCULAR VOLUME 98 fL (79-100); MONO # 0.5 x10^3/uL (0.0-1.1); MONO % 10 % (0-9); NEUT # 2.9 x10^3uL (1.8-7.7); NEUT % 55 % (31-73); PLATELET COUNT 160 x10^3/uL (140-400); RED CELL DISTRIBUTION WIDTH 15.1 % (11.5-14.5); WHITE BLOOD COUNT 5.2 x10^3/uL (4.0-11.0)
[2018-08-05 05:18] LABS: ALBUMIN 3.2 g/dL (3.4-5.0); CREATININE 5.5 mg/dL (0.6-1.0); GFR 7.9; PHOSPHORUS 6.1 mg/dL (2.6-4.7); POTASSIUM 4.2 mmol/L (3.5-5.1)
[2018-08-05 07:00] VITALS: BP 152/56
--- NOTE | 2018-08-05 09:45 | PDOC ---
PROGRESS NOTES History of Present Illness History of Present Illness Assessment/Plan Assessment/Plan Assessment/Plan IMPRESSION 1. ESRD ON DIALYSIS 2. NONCOMPLIANCE remains at HIGH RISK OF COMPLICATIONS// due to noncompliance with dialysis 3. HX HTN 4. OBESITY 5. ACUTE VOLUME OVERLOAD 6. ANEMIA 7. Minimal bibasilar lung airspace opacities likely atelectasis or infiltrates.. 8. uncontrolled hypertension 08/05 196/70 PLAN Replacement of right internal jugular tunnel dialysis catheter 08/04 iv hydralazine 10mg q 4 hrs prn bp support tele BED ADMIT DIALYSIS emergent 08/03 CONSULT NEPHROLOGY HOME MEDS MANDAEN ORIENTAL ORTHODOX NO BLOOD PRODUCTS LOWER K EMERGENTLY DR MATIAS following Vitals Vitals Vital Signs Date Time Temp Pulse Resp B/P (MAP) Pulse Ox O2 Delivery O2 Flow Rate FiO2 08/05/18 07:00 97.6 59 16 152/56 (88) 96 Room Air 97.6 08/04/18 16:14 2.0 Physical Exam General: Alert, Oriented X3, Cooperative, No acute distress, mild distress Heart: Regular rate, Normal S1 Lungs: Clear, Crackles, Other Abdomen: Soft Extremities: No clubbing, No cyanosis Skin: No significant lesion Labs LABS Replacement of the pre-existing right internal jugular tunnel dialysis catheter over guidewire 08/04/2018 Indication: Nonfunctional catheter Discussion: The risks and benefits of the procedure discussed the patient and her daughter. Informed consent was obtained. Timeout procedure was performed. The pre-existing catheter was evaluated fluoroscopically and found to be somewhat high cavoatrial junction. The right upper chest including the catheter was prepped and draped using sterile barrier technique. 1% lidocaine was administered for local anesthesia. Guidewire was advanced to the pre-existing catheter into the IVC. The catheter was removed using blunt dissection and traction. A new 23 cm tipped cuff palindrome dialysis catheter was advanced such that its tip was in the proximal right atrium with the patient supine position. The catheter secured in place. Sterile dressings were applied. The new catheter was found to flush and aspirate normally. Fluoroscopy time: 0.4MIN Dose area product: 1 [id number] The procedures performed under conscious sedation including continuous cardiopulmonary monitoring via dedicated sedation nurse. [id number] sedation time: 20 minutes Impression: Replacement of right internal jugular tunnel dialysis catheter as described Laboratory Tests Test 08/04/18 11:45 08/04/18 13:45 08/04/18 16:36 08/04/18 21:21 Prothrombin Time 13.1 SEC (11.7-14.0) Prothromb Time International Ratio 1.0 (0.8-1.1) Activated Partial Thromboplast Time 35 SEC (24-38) Glucose (Fingerstick) 126 mg/dL (70-99) 136 mg/dL (70-99) 212 mg/dL (70-99) Test 08/05/18 04:20 08/05/18 07:04 White Blood Count 5.2 x10^3/uL (4.0-11.0) Red Blood Count 3.30 x10^6/uL (3.50-5.40) Hemoglobin 10.5 g/dL (12.0-15.5) Hematocrit 32.3 % (36.0-47.0) Mean Corpuscular Volume 98 fL (79-100) Mean Corpuscular Hemoglobin 32 pg (25-35) Mean Corpuscular Hemoglobin Concent 33 g/dL (31-37) Red Cell Distribution Width 15.1 % (11.5-14.5) Platelet Count 160 x10^3/uL (140-400) Neutrophils (%) (Auto) 55 % (31-73) Lymphocytes (%) (Auto) 28 % (24-48) Monocytes (%) (Auto) 10 % (0-9) Eosinophils (%) (Auto) 6 % (0-3) Basophils (%) (Auto) 1 % (0-3) Neutrophils # (Auto) 2.9 x10^3uL (1.8-7.7) Lymphocytes # (Auto) 1.5 x10^3/uL (1.0-4.8) Monocytes # (Auto) 0.5 x10^3/uL (0.0-1.1) Eosinophils # (Auto) 0.3 x10^3/uL (0.0-0.7) Basophils # (Auto) 0.0 x10^3/uL (0.0-0.2) Sodium Level 136 mmol/L (136-145) Potassium Level 4.2 mmol/L (3.5-5.1) Chloride Level 98 mmol/L (98-107) Carbon Dioxide Level 28 mmol/L (21-32) Anion Gap 10 (6-14) Blood Urea Nitrogen 29 mg/dL (7-20) Creatinine 5.5 mg/dL (0.6-1.0) Estimated GFR (Cockcroft-Gault) 7.9 Glucose Level 129 mg/dL (70-99) Calcium Level 8.0 mg/dL (8.5-10.1) Phosphorus Level 6.1 mg/dL (2.6-4.7) Albumin 3.2 g/dL (3.4-5.0) Glucose (Fingerstick) 126 mg/dL (70-99) Assessment and Plan Assessmemt and Plan Problems Medical Problems: (1) Hyperkalemia Status: Acute (2) Hypermagnesemia Status: Acute (3) Hyperphosphatemia Status: Acute (4) Hypertensive urgency Status: Acute (5) Missed dialysis Status: Acute (6) Problem with dialysis access Status: Acute (7) Uncontrolled diabetes mellitus Status: Acute Comment Review of Relevant I have reviewed the following items fede (where applicable) has been applied. Labs Laboratory Tests Test 08/03/18 16:20 08/04/18 00:05 08/04/18 04:30 08/04/18 08:09 White Blood Count 5.3 x10^3/uL (4.0-11.0) 4.9 x10^3/uL (4.0-11.0) Red Blood Count 3.13 x10^6/uL (3.50-5.40) 3.22 x10^6/uL (3.50-5.40) Hemoglobin 10.2 g/dL (12.0-15.5) 10.2 g/dL (12.0-15.5) Hematocrit 30.9 % (36.0-47.0) 31.3 % (36.0-47.0) Mean Corpuscular Volume 99 fL (79-100) 97 fL (79-100) Mean Corpuscular Hemoglobin 33 pg (25-35) 32 pg (25-35) Mean Corpuscular Hemoglobin Concent 33 g/dL (31-37) 33 g/dL (31-37) Red Cell Distribution Width 15.3 % (11.5-14.5) 15.0 % (11.5-14.5) Platelet Count 195 x10^3/uL (140-400) 164 x10^3/uL (140-400) Neutrophils (%) (Auto) 61 % (31-73) 66 % (31-73) Lymphocytes (%) (Auto) 23 % (24-48) 20 % (24-48) Monocytes (%) (Auto) 8 % (0-9) 9 % (0-9) Eosinophils (%) (Auto) 6 % (0-3) 4 % (0-3) Basophils (%) (Auto) 1 % (0-3) 1 % (0-3) Neutrophils # (Auto) 3.2 x10^3uL (1.8-7.7) 3.2 x10^3uL (1.8-7.7) Lymphocytes # (Auto) 1.2 x10^3/uL (1.0-4.8) 1.0 x10^3/uL (1.0-4.8) Monocytes # (Auto) 0.4 x10^3/uL (0.0-1.1) 0.4 x10^3/uL (0.0-1.1) Eosinophils # (Auto) 0.3 x10^3/uL (0.0-0.7) 0.2 x10^3/uL (0.0-0.7) Basophils # (Auto) 0.1 x10^3/uL (0.0-0.2) 0.0 x10^3/uL (0.0-0.2) Sodium Level 136 mmol/L (136-145) 138 mmol/L (136-145) 139 mmol/L (136-145) Potassium Level 7.1 mmol/L (3.5-5.1) 3.7 mmol/L (3.5-5.1) 4.1 mmol/L (3.5-5.1) Chloride Level 100 mmol/L (98-107) 99 mmol/L (98-107) 99 mmol/L (98-107) Carbon Dioxide Level 19 mmol/L (21-32) 27 mmol/L (21-32) 29 mmol/L (21-32) Anion Gap 17 (6-14) 12 (6-14) 11 (6-14) Blood Urea Nitrogen 90 mg/dL (7-20) 29 mg/dL (7-20) 36 mg/dL (7-20) Creatinine 12.3 mg/dL (0.6-1.0) 5.1 mg/dL (0.6-1.0) 6.4 mg/dL (0.6-1.0) Estimated GFR (Cockcroft-Gault) 3.1 8.6 6.6 BUN/Creatinine Ratio 7 (6-20) Glucose Level 229 mg/dL (70-99) 115 mg/dL (70-99) 201 mg/dL (70-99) Calcium Level 8.3 mg/dL (8.5-10.1) 8.3 mg/dL (8.5-10.1) 8.2 mg/dL (8.5-10.1) Phosphorus Level 7.4 mg/dL (2.6-4.7) 3.5 mg/dL (2.6-4.7) 4.9 mg/dL (2.6-4.7) Magnesium Level 2.9 mg/dL (1.8-2.4) Total Bilirubin 0.4 mg/dL (0.2-1.0) Aspartate Amino Transf (AST/SGOT) 15 U/L (15-37) Alanine Aminotransferase (ALT/SGPT) 8 U/L (14-59) Alkaline Phosphatase 107 U/L (46-116) Total Protein 7.8 g/dL (6.4-8.2) Albumin 3.3 g/dL (3.4-5.0) 3.5 g/dL (3.4-5.0) 3.2 g/dL (3.4-5.0) Albumin/Globulin Ratio 0.7 (1.0-1.7) Glucose (Fingerstick) 168 mg/dL (70-99) Test 08/04/18 11:45 08/04/18 13:45 08/04/18 16:36 08/04/18 21:21 Prothrombin Time 13.1 SEC (11.7-14.0) Prothromb Time International Ratio 1.0 (0.8-1.1) Activated Partial Thromboplast Time 35 SEC (24-38) Glucose (Fingerstick) 126 mg/dL (70-99) 136 mg/dL (70-99) 212 mg/dL (70-99) Test 08/05/18 04:20 08/05/18 07:04 White Blood Count 5.2 x10^3/uL (4.0-11.0) Red Blood Count 3.30 x10^6/uL (3.50-5.40) Hemoglobin 10.5 g/dL (12.0-15.5) Hematocrit 32.3 % (36.0-47.0) Mean Corpuscular Volume 98 fL (79-100) Mean Corpuscular Hemoglobin 32 pg (25-35) Mean Corpuscular Hemoglobin Concent 33 g/dL (31-37) Red Cell Distribution Width 15.1 % (11.5-14.5) Platelet Count 160 x10^3/uL (140-400) Neutrophils (%) (Auto) 55 % (31-73) Lymphocytes (%) (Auto) 28 % (24-48) Monocytes (%) (Auto) 10 % (0-9) Eosinophils (%) (Auto) 6 % (0-3) Basophils (%) (Auto) 1 % (0-3) Neutrophils # (Auto) 2.9 x10^3uL (1.8-7.7) Lymphocytes # (Auto) 1.5 x10^3/uL (1.0-4.8) Monocytes # (Auto) 0.5 x10^3/uL (0.0-1.1) Eosinophils # (Auto) 0.3 x10^3/uL (0.0-0.7) Basophils # (Auto) 0.0 x10^3/uL (0.0-0.2) Sodium Level 136 mmol/L (136-145) Potassium Level 4.2 mmol/L (3.5-5.1) Chloride Level 98 mmol/L (98-107) Carbon Dioxide Level 28 mmol/L (21-32) Anion Gap 10 (6-14) Blood Urea Nitrogen 29 mg/dL (7-20) Creatinine 5.5 mg/dL (0.6-1.0) Estimated GFR (Cockcroft-Gault) 7.9 Glucose Level 129 mg/dL (70-99) Calcium Level 8.0 mg/dL (8.5-10.1) Phosphorus Level 6.1 mg/dL (2.6-4.7) Albumin 3.2 g/dL (3.4-5.0) Glucose (Fingerstick) 126 mg/dL (70-99) Laboratory Tests Test 08/04/18 11:45 08/04/18 13:45 08/04/18 16:36 08/04/18 21:21 Prothrombin Time 13.1 SEC (11.7-14.0) Prothromb Time International Ratio 1.0 (0.8-1.1) Activated Partial Thromboplast Time 35 SEC (24-38) Glucose (Fingerstick) 126 mg/dL (70-99) 136 mg/dL (70-99) 212 mg/dL (70-99) Test 08/05/18 04:20 08/05/18 07:04 White Blood Count 5.2 x10^3/uL (4.0-11.0) Red Blood Count 3.30 x10^6/uL (3.50-5.40) Hemoglobin 10.5 g/dL (12.0-15.5) Hematocrit 32.3 % (36.0-47.0) Mean Corpuscular Volume 98 fL (79-100) Mean Corpuscular Hemoglobin 32 pg (25-35) Mean Corpuscular Hemoglobin Concent 33 g/dL (31-37) Red Cell Distribution Width 15.1 % (11.5-14.5) Platelet Count 160 x10^3/uL (140-400) Neutrophils (%) (Auto) 55 % (31-73) Lymphocytes (%) (Auto) 28 % (24-48) Monocytes (%) (Auto) 10 % (0-9) Eosinophils (%) (Auto) 6 % (0-3) Basophils (%) (Auto) 1 % (0-3) Neutrophils # (Auto) 2.9 x10^3uL (1.8-7.7) Lymphocytes # (Auto) 1.5 x10^3/uL (1.0-4.8) Monocytes # (Auto) 0.5 x10^3/uL (0.0-1.1) Eosinophils # (Auto) 0.3 x10^3/uL (0.0-0.7) Basophils # (Auto) 0.0 x10^3/uL (0.0-0.2) Sodium Level 136 mmol/L (136-145) Potassium Level 4.2 mmol/L (3.5-5.1) Chloride Level 98 mmol/L (98-107) Carbon Dioxide Level 28 mmol/L (21-32) Anion Gap 10 (6-14) Blood Urea Nitrogen 29 mg/dL (7-20) Creatinine 5.5 mg/dL (0.6-1.0) Estimated GFR (Cockcroft-Gault) 7.9 Glucose Level 129 mg/dL (70-99) Calcium Level 8.0 mg/dL (8.5-10.1) Phosphorus Level 6.1 mg/dL (2.6-4.7) Albumin 3.2 g/dL (3.4-5.0) Glucose (Fingerstick) 126 mg/dL (70-99) Medications Current Medications Clonidine HCl (Catapres) 0.1 mg 1X ONCE PO Last administered on 08/03/18at 16: 50; Start 08/03/18 at 16:15; Stop 08/03/18 at 16:16; Status DC Albuterol Sulfate (Ventolin Neb Soln) 10 mg 1X ONCE CONT NEB Last administered on 08/03/18at 17:32; Start 08/03/18 at 17:15; Stop 08/03/18 at 17:18 ; Status DC Dextrose (Dextrose 50%-Water Syringe) 25 gm 1X ONCE IV Last administered on 03/13at 17:41; Start 08/03/18 at 17:15; Stop 08/03/18 at 17:18; Status DC Insulin Human Regular (HumuLIN R VIAL) 10 unit 1X ONCE IV Last administered on 08/03/18at 17:45; Start 08/03/18 at 17:15; Stop 08/03/18 at 17:18; Status DC Sodium Bicarbonate (Sodium Bicarb Adult 8.4% Syr) 50 meq 1X ONCE IV Last administered on 08/03/18at 17:46; Start 08/03/18 at 17:15; Stop 08/03/18 at 17:18 ; Status DC Sodium Chloride 1,000 ml @ 1,000 mls/hr Q1H PRN IV hypotension; Start 08/03/18 at 20:00; Stop 08/04/18 at 06:00; Status DC Albumin Human 200 ml @ 200 mls/hr 1X PRN PRN IV Hypotension; Start 08/03/18 at 20:00; Stop 08/04/18 at 06:00; Status DC Sodium Chloride (Normal Saline Flush) 10 ml 1X PRN PRN IV AP catheter pack; Start 08/03/18 at 19:45; Stop 08/04/18 at 06:00; Status DC Sodium Chloride (Normal Saline Flush) 10 ml 1X PRN PRN IV [employer] catheter pack; Start 08/03/18 at 19:45; Stop 08/04/18 at 06:00; Status DC Sodium Chloride 1,000 ml @ 400 mls/hr Q2H30M PRN IV PATENCY; Start 08/03/18 at 20:00; Stop 08/04/18 at 06:00; Status DC Info (PHARMACY MONITORING -- do not chart) 1 each PRN DAILY PRN MC SEE COMMENTS ; Start 08/03/18 at 19:45 Info (PHARMACY MONITORING -- do not chart) 1 each PRN DAILY PRN MC SEE COMMENTS ; Start 08/03/18 at 19:45; Status UNV Alteplase, Recombinant (Cathflo For Central Catheter Clearance) 2 mg 1X ONCE INT CAT Last administered on 08/04/18at 08:50; Start 08/04/18 at 08:15; Stop 04/12 at 08:16; Status DC Sodium Chloride 1,000 ml @ 1,000 mls/hr Q1H PRN IV hypotension; Start 08/04/18 at 10:05; Stop 08/04/18 at 16:30; Status DC Sodium Chloride 1,000 ml @ 400 mls/hr Q2H30M PRN IV PATENCY; Start 08/04/18 at 10:05; Stop 08/04/18 at 16:30; Status DC Info (PHARMACY MONITORING -- do not chart) 1 each PRN DAILY PRN MC SEE COMMENTS ; Start 08/04/18 at 10:15; Status UNV Info (PHARMACY MONITORING -- do not chart) 1 each PRN DAILY PRN MC SEE COMMENTS ; Start 08/04/18 at 10:15; Status UNV Lidocaine/ Epinephrine (LIDOCAINE 1%-EPI 1:100,000 Multi-Dose) 20 ml STK-MED ONCE .ROUTE ; Start 08/04/18 at 14:53; Stop 08/04/18 at 14:54; Status DC Midazolam HCl (Versed) 2 mg STK-MED ONCE .ROUTE ; Start 08/04/18 at 15:42; Stop 08/04/18 at 15:43; Status DC Fentanyl Citrate (Fentanyl 2ml Vial) 100 mcg STK-MED ONCE .ROUTE ; Start at 15:42; Stop 08/04/18 at 15:43; Status DC Cefazolin Sodium/ Dextrose 50 ml @ As Directed STK-MED ONCE IV ; Start 08/04/18 at 15:42; Stop 08/04/18 at 15:43; Status DC Cefazolin Sodium/ Dextrose 50 ml @ 100 mls/hr 1X ONCE IV Last administered on 08/04/18at 16:09; Start 08/04/18 at 16:15; Stop 08/04/18 at 16:44; Status DC Midazolam HCl (Versed) 2 mg 1X ONCE IV Last administered on 08/04/18at 16:11; Start 08/04/18 at 16:15; Stop 08/04/18 at 16:16; Status DC Fentanyl Citrate (Fentanyl 2ml Vial) 100 mcg 1X ONCE IV Last administered on at 16:12; Start 08/04/18 at 16:15; Stop 08/04/18 at 16:16; Status DC Lidocaine/ Epinephrine (LIDOCAINE 1%-EPI 1:100,000 Multi-Dose) 20 ml 1X ONCE IJ Last administered on 08/04/18at 16:10; Start 08/04/18 at 16:15; Stop at 16:16; Status DC Active Scripts Active Isosorbide Mononitrate Er (Isosorbide Mononitrate) 30 Mg Tab.er.24h 30 Mg PO DAILY 30 Days Furosemide 40 Mg Tablet 40 Mg PO DAILY 30 Days Clonazepam 0.5 Mg Tablet 0.5 Mg PO TID PRN 30 Days Humalog (Insulin Lispro) 100 Unit/1 Ml Insuln.pen 10 Units SQ TIDWMEALS 30 Days Lantus Solostar (Insulin Glargine,Hum.rec.anlog) 100 Unit/1 Ml Insuln.pen 7 Units SQ QHS 30 Days Atorvastatin Calcium 40 Mg Tablet 80 Mg PO QHS 30 Days Amlodipine Besylate 5 Mg Tablet 5 Mg PO DAILYWLUN 30 Days Clopidogrel (Clopidogrel Bisulfate) 75 Mg Tablet 75 Mg PO DAILY 30 Days Lisinopril 20 Mg Tablet 1 Tab PO DAILY 30 Days Aspirin Ec (Aspirin) 81 Mg Tablet. 81 Mg PO DAILYWBKFT 30 Days Reported Carvedilol 25 Mg Tablet 20 Mg PO BIDWMEALS Vitals/I & O Vital Sign - Last 24 Hours 08/04/18 08/04/18 08/04/18 08/04/18 15:00 16:12 16:14 16:42 Temp 98.6 98.6 Pulse 60 67 Resp 18 18 20 18 B/P (MAP) 180/66 (104) Pulse Ox 93 100 O2 Delivery Room Air Nasal Cannula Room Air O2 Flow Rate 2.0 08/04/18 08/04/18 08/04/18 08/05/18 19:30 20:00 23:32 03:59 Temp 98.3 98.6 97.9 98.3 98.6 97.9 Pulse 66 66 61 Resp 16 16 16 B/P (MAP) 136/46 (76) 140/57 (84) 162/52 (88) Pulse Ox 97 98 96 O2 Delivery Room Air Room Air Room Air Room Air 08/05/18 07:00 Temp 97.6 97.6 Pulse 59 Resp 16 B/P (MAP) 152/56 (88) Pulse Ox 96 O2 Delivery Room Air Intake and Output 08/04/18 08/04/18 08/05/18 15:00 23:00 07:00 Intake Total 0 ml 175 ml 0 ml Balance 0 ml 175 ml 0 ml BIJAN STEELE MD Aug 05, 2018 09:45
[2018-08-05 11:00] VITALS: BP 196/70
[2018-08-05] MEDS ORDERED: hydrALAZINE 20 MG/ML VIAL. IVP ONE (11:15)
[2018-08-05] MEDS ORDERED: INSULIN LISPRO 300 UNITS/3 ML INSULN.PEN. SQ SCH ×2 (11:45→12:00)
--- NOTE | 2018-08-05 14:49 | PDOC ---
Renal-Progress Notes Subjective Notes Notes NONE History of Present Illness Hx of present illness NO CHANGE Vitals Vitals Vital Signs Date Time Temp Pulse Resp B/P (MAP) Pulse Ox O2 Delivery O2 Flow Rate FiO2 08/05/18 11:27 196/70 08/05/18 11:00 98.7 68 16 97 Room Air 98.7 08/04/18 16:14 2.0 Weight Weight [ ] I.O. Intake and Output Intake and Output 08/05/18 07:00 Intake Total 175 ml Balance 175 ml Intake Oral 175 ml # Voids 1 Labs Labs Laboratory Tests Test 08/04/18 16:36 08/04/18 21:21 08/05/18 04:20 08/05/18 07:04 Glucose (Fingerstick) 136 mg/dL (70-99) 212 mg/dL (70-99) 126 mg/dL (70-99) White Blood Count 5.2 x10^3/uL (4.0-11.0) Red Blood Count 3.30 x10^6/uL (3.50-5.40) Hemoglobin 10.5 g/dL (12.0-15.5) Hematocrit 32.3 % (36.0-47.0) Mean Corpuscular Volume 98 fL (79-100) Mean Corpuscular Hemoglobin 32 pg (25-35) Mean Corpuscular Hemoglobin Concent 33 g/dL (31-37) Red Cell Distribution Width 15.1 % (11.5-14.5) Platelet Count 160 x10^3/uL (140-400) Neutrophils (%) (Auto) 55 % (31-73) Lymphocytes (%) (Auto) 28 % (24-48) Monocytes (%) (Auto) 10 % (0-9) Eosinophils (%) (Auto) 6 % (0-3) Basophils (%) (Auto) 1 % (0-3) Neutrophils # (Auto) 2.9 x10^3uL (1.8-7.7) Lymphocytes # (Auto) 1.5 x10^3/uL (1.0-4.8) Monocytes # (Auto) 0.5 x10^3/uL (0.0-1.1) Eosinophils # (Auto) 0.3 x10^3/uL (0.0-0.7) Basophils # (Auto) 0.0 x10^3/uL (0.0-0.2) Sodium Level 136 mmol/L (136-145) Potassium Level 4.2 mmol/L (3.5-5.1) Chloride Level 98 mmol/L (98-107) Carbon Dioxide Level 28 mmol/L (21-32) Anion Gap 10 (6-14) Blood Urea Nitrogen 29 mg/dL (7-20) Creatinine 5.5 mg/dL (0.6-1.0) Estimated GFR (Cockcroft-Gault) 7.9 Glucose Level 129 mg/dL (70-99) Calcium Level 8.0 mg/dL (8.5-10.1) Phosphorus Level 6.1 mg/dL (2.6-4.7) Albumin 3.2 g/dL (3.4-5.0) Test 08/05/18 11:05 Glucose (Fingerstick) 251 mg/dL (70-99) Review of Systems Constitutional: yes: weakness, alert, oriented Ears/Nose/Throat: Yes: no symptom reported Eyes: Yes: no symptom reported Pulmonary: Yes no symptom reported Cardiovascular: Yes no symptom reported Gastrointestional: Yes: no symptom reported Genitourinary: Yes: no symptom reported Musculoskeletal: Yes: no symptom reported Skin: Yes no symptom reported Psychiatric/Neurological: Yes: no symptom reported Endocrine: Yes: no symptom reported Physical Exam General Appearance: no apparent distress Skin: warm Respiratory: bilateral CTA Heart: S1S2 Abdomen: soft, bowel sounds present Genitourinary: bladder flat Extremities: pulses present Neurology: alert, follow commands Assessment Assessment IMP HYPERKALEMIA NON FUNCTIONING TDC S/P TEMP HD CATHETER ESRD DM II HTN - NOT CONTROLLED NON COMPLIANCE VOLUME OVERLOAD PLAN ENC COMPLIANCE PT WILL NOT ALLOW FOR AV ACCESS PLACEMENT NEW TUNNELED HD CATHETER NEXT WEEK WILL FOLLOW ЕЛЕНА MANZANO MD Aug 05, 2018 14:48
[2018-08-05 15:00] VITALS: BP 171/52
[2018-08-05 19:30] VITALS: BP 145/56
[2018-08-05 23:46] VITALS: BP 163/54
[2018-08-06 03:55] VITALS: BP 171/46
[2018-08-06 07:00] VITALS: BP 161/57
[2018-08-06 11:00] VITALS: BP 166/62
--- NOTE | 2018-08-06 11:13 | PDOC ---
PROGRESS NOTES History of Present Illness History of Present Illness Assessment/Plan Assessment/Plan Assessment/Plan IMPRESSION 1. ESRD ON DIALYSIS 2. NONCOMPLIANCE remains at HIGH RISK OF COMPLICATIONS// due to noncompliance with dialysis 3. HX HTN 4. OBESITY 5. ACUTE VOLUME OVERLOAD 6. ANEMIA 7. Minimal bibasilar lung airspace opacities likely atelectasis or infiltrates.. 8. uncontrolled hypertension 08/05 196/70 PLAN Replacement of right internal jugular tunnel dialysis catheter 08/04 iv hydralazine 10mg q 4 hrs prn bp support tele BED ADMIT DIALYSIS emergent 08/03 CONSULT NEPHROLOGY HOME MEDS RELIGIOUS VOODOO NO BLOOD PRODUCTS LOWER K EMERGENTLY DR MATIAS following NEW TUNNELED CATHETER 08/07 Vitals Vitals Vital Signs Date Time Temp Pulse Resp B/P (MAP) Pulse Ox O2 Delivery O2 Flow Rate FiO2 08/06/18 08:00 Room Air 08/06/18 07:00 97.5 67 16 161/57 (91) 98 97.5 Physical Exam General: Alert, Oriented X3, Cooperative, No acute distress, mild distress Heart: Regular rate, Normal S1 Lungs: Clear, Crackles, Other Abdomen: Soft Extremities: No clubbing, No cyanosis Skin: No significant lesion Labs LABS Laboratory Tests Test 08/05/18 16:36 08/05/18 19:55 08/06/18 07:46 Glucose (Fingerstick) 282 mg/dL (70-99) 246 mg/dL (70-99) 164 mg/dL (70-99) Assessment and Plan Assessmemt and Plan Problems Medical Problems: (1) Hyperkalemia Status: Acute (2) Hypermagnesemia Status: Acute (3) Hyperphosphatemia Status: Acute (4) Hypertensive urgency Status: Acute (5) Missed dialysis Status: Acute (6) Problem with dialysis access Status: Acute (7) Uncontrolled diabetes mellitus Status: Acute Comment Review of Relevant I have reviewed the following items fede (where applicable) has been applied. Labs Laboratory Tests Test 08/04/18 11:45 08/04/18 13:45 08/04/18 16:36 08/04/18 21:21 Prothrombin Time 13.1 SEC (11.7-14.0) Prothromb Time International Ratio 1.0 (0.8-1.1) Activated Partial Thromboplast Time 35 SEC (24-38) Glucose (Fingerstick) 126 mg/dL (70-99) 136 mg/dL (70-99) 212 mg/dL (70-99) Test 08/05/18 04:20 08/05/18 07:04 08/05/18 11:05 08/05/18 16:36 White Blood Count 5.2 x10^3/uL (4.0-11.0) Red Blood Count 3.30 x10^6/uL (3.50-5.40) Hemoglobin 10.5 g/dL (12.0-15.5) Hematocrit 32.3 % (36.0-47.0) Mean Corpuscular Volume 98 fL (79-100) Mean Corpuscular Hemoglobin 32 pg (25-35) Mean Corpuscular Hemoglobin Concent 33 g/dL (31-37) Red Cell Distribution Width 15.1 % (11.5-14.5) Platelet Count 160 x10^3/uL (140-400) Neutrophils (%) (Auto) 55 % (31-73) Lymphocytes (%) (Auto) 28 % (24-48) Monocytes (%) (Auto) 10 % (0-9) Eosinophils (%) (Auto) 6 % (0-3) Basophils (%) (Auto) 1 % (0-3) Neutrophils # (Auto) 2.9 x10^3uL (1.8-7.7) Lymphocytes # (Auto) 1.5 x10^3/uL (1.0-4.8) Monocytes # (Auto) 0.5 x10^3/uL (0.0-1.1) Eosinophils # (Auto) 0.3 x10^3/uL (0.0-0.7) Basophils # (Auto) 0.0 x10^3/uL (0.0-0.2) Sodium Level 136 mmol/L (136-145) Potassium Level 4.2 mmol/L (3.5-5.1) Chloride Level 98 mmol/L (98-107) Carbon Dioxide Level 28 mmol/L (21-32) Anion Gap 10 (6-14) Blood Urea Nitrogen 29 mg/dL (7-20) Creatinine 5.5 mg/dL (0.6-1.0) Estimated GFR (Cockcroft-Gault) 7.9 Glucose Level 129 mg/dL (70-99) Calcium Level 8.0 mg/dL (8.5-10.1) Phosphorus Level 6.1 mg/dL (2.6-4.7) Albumin 3.2 g/dL (3.4-5.0) Glucose (Fingerstick) 126 mg/dL (70-99) 251 mg/dL (70-99) 282 mg/dL (70-99) Test 08/05/18 19:55 08/06/18 07:46 Glucose (Fingerstick) 246 mg/dL (70-99) 164 mg/dL (70-99) Laboratory Tests Test 08/05/18 16:36 08/05/18 19:55 08/06/18 07:46 Glucose (Fingerstick) 282 mg/dL (70-99) 246 mg/dL (70-99) 164 mg/dL (70-99) Medications Current Medications Clonidine HCl (Catapres) 0.1 mg 1X ONCE PO Last administered on 08/03/18at 16: 50; Start 08/03/18 at 16:15; Stop 08/03/18 at 16:16; Status DC Albuterol Sulfate (Ventolin Neb Soln) 10 mg 1X ONCE CONT NEB Last administered on 08/03/18at 17:32; Start 08/03/18 at 17:15; Stop 08/03/18 at 17:18 ; Status DC Dextrose (Dextrose 50%-Water Syringe) 25 gm 1X ONCE IV Last administered on 03/13at 17:41; Start 08/03/18 at 17:15; Stop 08/03/18 at 17:18; Status DC Insulin Human Regular (HumuLIN R VIAL) 10 unit 1X ONCE IV Last administered on 08/03/18at 17:45; Start 08/03/18 at 17:15; Stop 08/03/18 at 17:18; Status DC Sodium Bicarbonate (Sodium Bicarb Adult 8.4% Syr) 50 meq 1X ONCE IV Last administered on 08/03/18at 17:46; Start 08/03/18 at 17:15; Stop 08/03/18 at 17:18 ; Status DC Sodium Chloride 1,000 ml @ 1,000 mls/hr Q1H PRN IV hypotension; Start 08/03/18 at 20:00; Stop 08/04/18 at 06:00; Status DC Albumin Human 200 ml @ 200 mls/hr 1X PRN PRN IV Hypotension; Start 08/03/18 at 20:00; Stop 08/04/18 at 06:00; Status DC Sodium Chloride (Normal Saline Flush) 10 ml 1X PRN PRN IV AP catheter pack; Start 08/03/18 at 19:45; Stop 08/04/18 at 06:00; Status DC Sodium Chloride (Normal Saline Flush) 10 ml 1X PRN PRN IV WAREHOUSE FOREMAN catheter pack; Start 08/03/18 at 19:45; Stop 08/04/18 at 06:00; Status DC Sodium Chloride 1,000 ml @ 400 mls/hr Q2H30M PRN IV PATENCY; Start 08/03/18 at 20:00; Stop 08/04/18 at 06:00; Status DC Info (PHARMACY MONITORING -- do not chart) 1 each PRN DAILY PRN MC SEE COMMENTS ; Start 08/03/18 at 19:45 Info (PHARMACY MONITORING -- do not chart) 1 each PRN DAILY PRN MC SEE COMMENTS ; Start 08/03/18 at 19:45; Status UNV Alteplase, Recombinant (Cathflo For Central Catheter Clearance) 2 mg 1X ONCE INT CAT Last administered on 08/04/18at 08:50; Start 08/04/18 at 08:15; Stop 04/12 at 08:16; Status DC Sodium Chloride 1,000 ml @ 1,000 mls/hr Q1H PRN IV hypotension; Start 08/04/18 at 10:05; Stop 08/04/18 at 16:30; Status DC Sodium Chloride 1,000 ml @ 400 mls/hr Q2H30M PRN IV PATENCY; Start 08/04/18 at 10:05; Stop 08/04/18 at 16:30; Status DC Info (PHARMACY MONITORING -- do not chart) 1 each PRN DAILY PRN MC SEE COMMENTS ; Start 08/04/18 at 10:15; Status UNV Info (PHARMACY MONITORING -- do not chart) 1 each PRN DAILY PRN MC SEE COMMENTS ; Start 08/04/18 at 10:15; Status UNV Lidocaine/ Epinephrine (LIDOCAINE 1%-EPI 1:100,000 Multi-Dose) 20 ml STK-MED ONCE .ROUTE ; Start 08/04/18 at 14:53; Stop 08/04/18 at 14:54; Status DC Midazolam HCl (Versed) 2 mg STK-MED ONCE .ROUTE ; Start 08/04/18 at 15:42; Stop 08/04/18 at 15:43; Status DC Fentanyl Citrate (Fentanyl 2ml Vial) 100 mcg STK-MED ONCE .ROUTE ; Start at 15:42; Stop 08/04/18 at 15:43; Status DC Cefazolin Sodium/ Dextrose 50 ml @ As Directed STK-MED ONCE IV ; Start 08/04/18 at 15:42; Stop 08/04/18 at 15:43; Status DC Cefazolin Sodium/ Dextrose 50 ml @ 100 mls/hr 1X ONCE IV Last administered on 08/04/18at 16:09; Start 08/04/18 at 16:15; Stop 08/04/18 at 16:44; Status DC Midazolam HCl (Versed) 2 mg 1X ONCE IV Last administered on 08/04/18at 16:11; Start 08/04/18 at 16:15; Stop 08/04/18 at 16:16; Status DC Fentanyl Citrate (Fentanyl 2ml Vial) 100 mcg 1X ONCE IV Last administered on at 16:12; Start 08/04/18 at 16:15; Stop 08/04/18 at 16:16; Status DC Lidocaine/ Epinephrine (LIDOCAINE 1%-EPI 1:100,000 Multi-Dose) 20 ml 1X ONCE IJ Last administered on 08/04/18at 16:10; Start 08/04/18 at 16:15; Stop at 16:16; Status DC Hydralazine HCl (Apresoline Inj) 10 mg 1X ONCE IVP Last administered on at 11:27; Start 08/05/18 at 11:15; Stop 08/05/18 at 11:16; Status DC Insulin Human Lispro (HumaLOG) 10 units TIDWMEALS SQ ; Start 08/05/18 at 12:00; Stop 08/05/18 at 12:00; Status DC Insulin Human Lispro (HumaLOG) 5 units STAT SQ ; Start 08/05/18 at 11:45; Stop 08/05/18 at 16:41; Status DC Active Scripts Active Isosorbide Mononitrate Er (Isosorbide Mononitrate) 30 Mg Tab.er.24h 30 Mg PO DAILY 30 Days Furosemide 40 Mg Tablet 40 Mg PO DAILY 30 Days Clonazepam 0.5 Mg Tablet 0.5 Mg PO TID PRN 30 Days Humalog (Insulin Lispro) 100 Unit/1 Ml Insuln.pen 10 Units SQ TIDWMEALS 30 Days Lantus Solostar (Insulin Glargine,Hum.rec.anlog) 100 Unit/1 Ml Insuln.pen 7 Units SQ QHS 30 Days Atorvastatin Calcium 40 Mg Tablet 80 Mg PO QHS 30 Days Amlodipine Besylate 5 Mg Tablet 5 Mg PO DAILYWLUN 30 Days Clopidogrel (Clopidogrel Bisulfate) 75 Mg Tablet 75 Mg PO DAILY 30 Days Lisinopril 20 Mg Tablet 1 Tab PO DAILY 30 Days Aspirin Ec (Aspirin) 81 Mg Tablet.dr 81 Mg PO DAILYWBKFT 30 Days Reported Carvedilol 25 Mg Tablet 20 Mg PO BIDWMEALS Vitals/I & O Vital Sign - Last 24 Hours 08/05/18 08/05/18 08/05/18 08/05/18 11:27 15:00 19:30 20:00 Temp 98.9 98.8 98.9 98.8 Pulse 67 76 Resp 16 18 B/P (MAP) 196/70 171/52 (91) 145/56 (85) Pulse Ox 98 99 O2 Delivery Room Air Room Air Room Air 08/05/18 08/06/18 08/06/18 08/06/18 23:46 03:55 07:00 08:00 Temp 98.4 98.2 97.5 98.4 98.2 97.5 Pulse 68 63 67 Resp 18 18 16 B/P (MAP) 163/54 (90) 171/46 (87) 161/57 (91) Pulse Ox 91 93 98 O2 Delivery Room Air Room Air Room Air Room Air Intake and Output 08/05/18 08/05/18 08/06/18 14:59 22:59 06:59 Intake Total 75 ml 150 ml 250 ml Balance 75 ml 150 ml 250 ml BIJAN STEELE MD Aug 06, 2018 11:13
--- NOTE | 2018-08-06 12:17 | PDOC ---
Renal-Progress Notes Subjective Notes Notes NONE History of Present Illness Hx of present illness STABLE Vitals Vitals Vital Signs Date Time Temp Pulse Resp B/P (MAP) Pulse Ox O2 Delivery O2 Flow Rate FiO2 08/06/18 11:00 98.2 65 16 166/62 (96) 98 Room Air 98.2 Weight Weight [ ] I.O. Intake and Output Intake and Output 08/06/18 06:59 Intake Total 475 ml Balance 475 ml Intake Oral 475 ml Labs Labs Laboratory Tests Test 08/05/18 16:36 08/05/18 19:55 08/06/18 07:46 08/06/18 11:04 Glucose (Fingerstick) 282 mg/dL (70-99) 246 mg/dL (70-99) 164 mg/dL (70-99) 247 mg/dL (70-99) Review of Systems Constitutional: yes: weakness, alert, oriented Ears/Nose/Throat: Yes: no symptom reported Eyes: Yes: no symptom reported Pulmonary: Yes no symptom reported Cardiovascular: Yes no symptom reported Gastrointestional: Yes: no symptom reported Genitourinary: Yes: no symptom reported Musculoskeletal: Yes: no symptom reported Skin: Yes no symptom reported Psychiatric/Neurological: Yes: no symptom reported Endocrine: Yes: no symptom reported Physical Exam General Appearance: no apparent distress Skin: warm Respiratory: bilateral CTA Heart: S1S2 Abdomen: soft, bowel sounds present Genitourinary: bladder flat Extremities: pulses present Neurology: alert, follow commands Assessment Assessment IMP HYPERKALEMIA NON FUNCTIONING TDC S/P TEMP HD CATHETER ESRD DM II HTN - NOT CONTROLLED NON COMPLIANCE VOLUME OVERLOAD PLAN ENC COMPLIANCE PT WILL NOT ALLOW FOR AV ACCESS PLACEMENT NEW TUNNELED HD CATHETER TOMORROW HD AFTER NEW CATHETER THEN OK TO D/C WILL FOLLOW ЕЛЕНА MANZANO MD Aug 06, 2018 12:17
[2018-08-06 15:00] VITALS: BP 178/67
[2018-08-06 19:30] VITALS: BP 177/45
[2018-08-06] MEDS ORDERED: DARBEPOETIN ALFA 60 MCG/0.3 ML DISP.SYRIN. SQ SCH (21:00)
[2018-08-06] MEDS ORDERED: DEXTROSE 50% 25 GM / 50ML DISP.SYRIN. IV PRN (23:00)
[2018-08-06] MEDS: INSULIN LISPRO 300 UNITS/3 ML INSULN.PEN. SQ SCH (23:09)
[2018-08-06 23:45] VITALS: BP 164/46
[2018-08-07 03:49] VITALS: BP 182/61
[2018-08-07 04:45] LABS: HEMATOCRIT 30.2 % (36.0-47.0); RED BLOOD COUNT 3.11 x10^6/uL (3.50-5.40); RED CELL DISTRIBUTION WIDTH 14.6 % (11.5-14.5); WHITE BLOOD COUNT 5.9 x10^3/uL (4.0-11.0)
[2018-08-07 05:02] LABS: CALCIUM 7.3 mg/dL (8.5-10.1); CREATININE 9.1 mg/dL (0.6-1.0); GFR 4.4; POTASSIUM 4.8 mmol/L (3.5-5.1)
[2018-08-07 07:16] VITALS: BP 169/51
[2018-08-07] MEDS: INSULIN LISPRO 300 UNITS/3 ML INSULN.PEN. SQ SCH ×4 (08:46→21:08)
--- NOTE | 2018-08-07 09:38 | PDOC ---
PROGRESS NOTES History of Present Illness History of Present Illness Assessment/Plan Assessment/Plan Assessment/Plan IMPRESSION 1. ESRD ON DIALYSIS 2. NONCOMPLIANCE remains at HIGH RISK OF COMPLICATIONS// due to noncompliance with dialysis 3. HX HTN 4. OBESITY 5. ACUTE VOLUME OVERLOAD 6. ANEMIA 7. Minimal bibasilar lung airspace opacities likely atelectasis or infiltrates.. 8. uncontrolled hypertension 08/05 196/70 PLAN Replacement of right internal jugular tunnel dialysis catheter 08/04 iv hydralazine 10mg q 4 hrs prn bp support tele BED ADMIT DIALYSIS emergent 08/03 CONSULT NEPHROLOGY HOME MEDS UATSDIN ORTHODOXY NO BLOOD PRODUCTS LOWER K EMERGENTLY DR MATIAS following NEW TUNNELED CATHETER 08/07 HD AFTER NEW CATHETER THEN OK TO D/C 44 min pt exam, chart review, > 50% of time spent with exam, chart review, pt care coordination Vitals Vitals Vital Signs Date Time Temp Pulse Resp B/P (MAP) Pulse Ox O2 Delivery O2 Flow Rate FiO2 08/07/18 07:16 97.5 68 19 169/51 (90) 94 Room Air 97.5 Physical Exam General: Alert, Oriented X3, Cooperative, No acute distress Heart: Regular rate, Normal S1 Lungs: Clear, Crackles, Other Abdomen: Normal bowel sounds, Soft, No tenderness Extremities: No clubbing, No cyanosis Skin: No significant lesion Labs LABS Laboratory Tests Test 08/06/18 11:04 08/06/18 17:01 08/06/18 19:45 08/07/18 04:23 Glucose (Fingerstick) 247 mg/dL (70-99) 220 mg/dL (70-99) 306 mg/dL (70-99) White Blood Count 5.9 x10^3/uL (4.0-11.0) Red Blood Count 3.11 x10^6/uL (3.50-5.40) Hemoglobin 10.0 g/dL (12.0-15.5) Hematocrit 30.2 % (36.0-47.0) Mean Corpuscular Volume 97 fL (79-100) Mean Corpuscular Hemoglobin 32 pg (25-35) Mean Corpuscular Hemoglobin Concent 33 g/dL (31-37) Red Cell Distribution Width 14.6 % (11.5-14.5) Platelet Count 153 x10^3/uL (140-400) Sodium Level 137 mmol/L (136-145) Potassium Level 4.8 mmol/L (3.5-5.1) Chloride Level 98 mmol/L (98-107) Carbon Dioxide Level 23 mmol/L (21-32) Anion Gap 16 (6-14) Blood Urea Nitrogen 59 mg/dL (7-20) Creatinine 9.1 mg/dL (0.6-1.0) Estimated GFR (Cockcroft-Gault) 4.4 Glucose Level 161 mg/dL (70-99) Calcium Level 7.3 mg/dL (8.5-10.1) Test 08/07/18 07:18 Glucose (Fingerstick) 156 mg/dL (70-99) Assessment and Plan Assessmemt and Plan Problems Medical Problems: (1) Hyperkalemia Status: Acute (2) Hypermagnesemia Status: Acute (3) Hyperphosphatemia Status: Acute (4) Hypertensive urgency Status: Acute (5) Missed dialysis Status: Acute (6) Problem with dialysis access Status: Acute (7) Uncontrolled diabetes mellitus Status: Acute Comment Review of Relevant I have reviewed the following items fede (where applicable) has been applied. Labs Laboratory Tests Test 08/05/18 11:05 08/05/18 16:36 08/05/18 19:55 08/06/18 07:46 Glucose (Fingerstick) 251 mg/dL (70-99) 282 mg/dL (70-99) 246 mg/dL (70-99) 164 mg/dL (70-99) Test 08/06/18 11:04 08/06/18 17:01 08/06/18 19:45 08/07/18 04:23 Glucose (Fingerstick) 247 mg/dL (70-99) 220 mg/dL (70-99) 306 mg/dL (70-99) White Blood Count 5.9 x10^3/uL (4.0-11.0) Red Blood Count 3.11 x10^6/uL (3.50-5.40) Hemoglobin 10.0 g/dL (12.0-15.5) Hematocrit 30.2 % (36.0-47.0) Mean Corpuscular Volume 97 fL (79-100) Mean Corpuscular Hemoglobin 32 pg (25-35) Mean Corpuscular Hemoglobin Concent 33 g/dL (31-37) Red Cell Distribution Width 14.6 % (11.5-14.5) Platelet Count 153 x10^3/uL (140-400) Sodium Level 137 mmol/L (136-145) Potassium Level 4.8 mmol/L (3.5-5.1) Chloride Level 98 mmol/L (98-107) Carbon Dioxide Level 23 mmol/L (21-32) Anion Gap 16 (6-14) Blood Urea Nitrogen 59 mg/dL (7-20) Creatinine 9.1 mg/dL (0.6-1.0) Estimated GFR (Cockcroft-Gault) 4.4 Glucose Level 161 mg/dL (70-99) Calcium Level 7.3 mg/dL (8.5-10.1) Test 08/07/18 07:18 Glucose (Fingerstick) 156 mg/dL (70-99) Laboratory Tests Test 08/06/18 11:04 08/06/18 17:01 08/06/18 19:45 08/07/18 04:23 Glucose (Fingerstick) 247 mg/dL (70-99) 220 mg/dL (70-99) 306 mg/dL (70-99) White Blood Count 5.9 x10^3/uL (4.0-11.0) Red Blood Count 3.11 x10^6/uL (3.50-5.40) Hemoglobin 10.0 g/dL (12.0-15.5) Hematocrit 30.2 % (36.0-47.0) Mean Corpuscular Volume 97 fL (79-100) Mean Corpuscular Hemoglobin 32 pg (25-35) Mean Corpuscular Hemoglobin Concent 33 g/dL (31-37) Red Cell Distribution Width 14.6 % (11.5-14.5) Platelet Count 153 x10^3/uL (140-400) Sodium Level 137 mmol/L (136-145) Potassium Level 4.8 mmol/L (3.5-5.1) Chloride Level 98 mmol/L (98-107) Carbon Dioxide Level 23 mmol/L (21-32) Anion Gap 16 (6-14) Blood Urea Nitrogen 59 mg/dL (7-20) Creatinine 9.1 mg/dL (0.6-1.0) Estimated GFR (Cockcroft-Gault) 4.4 Glucose Level 161 mg/dL (70-99) Calcium Level 7.3 mg/dL (8.5-10.1) Test 08/07/18 07:18 Glucose (Fingerstick) 156 mg/dL (70-99) Medications Current Medications Clonidine HCl (Catapres) 0.1 mg 1X ONCE PO Last administered on 08/03/18at 16: 50; Start 08/03/18 at 16:15; Stop 08/03/18 at 16:16; Status DC Albuterol Sulfate (Ventolin Neb Soln) 10 mg 1X ONCE CONT NEB Last administered on 08/03/18at 17:32; Start 08/03/18 at 17:15; Stop 08/03/18 at 17:18 ; Status DC Dextrose (Dextrose 50%-Water Syringe) 25 gm 1X ONCE IV Last administered on 03/13at 17:41; Start 08/03/18 at 17:15; Stop 08/03/18 at 17:18; Status DC Insulin Human Regular (HumuLIN R VIAL) 10 unit 1X ONCE IV Last administered on 08/03/18at 17:45; Start 08/03/18 at 17:15; Stop 08/03/18 at 17:18; Status DC Sodium Bicarbonate (Sodium Bicarb Adult 8.4% Syr) 50 meq 1X ONCE IV Last administered on 08/03/18at 17:46; Start 08/03/18 at 17:15; Stop 08/03/18 at 17:18 ; Status DC Sodium Chloride 1,000 ml @ 1,000 mls/hr Q1H PRN IV hypotension; Start 08/03/18 at 20:00; Stop 08/04/18 at 06:00; Status DC Albumin Human 200 ml @ 200 mls/hr 1X PRN PRN IV Hypotension; Start 08/03/18 at 20:00; Stop 08/04/18 at 06:00; Status DC Sodium Chloride (Normal Saline Flush) 10 ml 1X PRN PRN IV AP catheter pack; Start 08/03/18 at 19:45; Stop 08/04/18 at 06:00; Status DC Sodium Chloride (Normal Saline Flush) 10 ml 1X PRN PRN IV MANAGER RELIABILITY catheter pack; Start 08/03/18 at 19:45; Stop 08/04/18 at 06:00; Status DC Sodium Chloride 1,000 ml @ 400 mls/hr Q2H30M PRN IV PATENCY; Start 08/03/18 at 20:00; Stop 08/04/18 at 06:00; Status DC Info (PHARMACY MONITORING -- do not chart) 1 each PRN DAILY PRN MC SEE COMMENTS ; Start 08/03/18 at 19:45 Info (PHARMACY MONITORING -- do not chart) 1 each PRN DAILY PRN MC SEE COMMENTS ; Start 08/03/18 at 19:45; Status UNV Alteplase, Recombinant (Cathflo For Central Catheter Clearance) 2 mg 1X ONCE INT CAT Last administered on 08/04/18at 08:50; Start 08/04/18 at 08:15; Stop 04/12 at 08:16; Status DC Sodium Chloride 1,000 ml @ 1,000 mls/hr Q1H PRN IV hypotension; Start 08/04/18 at 10:05; Stop 08/04/18 at 16:30; Status DC Sodium Chloride 1,000 ml @ 400 mls/hr Q2H30M PRN IV PATENCY; Start 08/04/18 at 10:05; Stop 08/04/18 at 16:30; Status DC Info (PHARMACY MONITORING -- do not chart) 1 each PRN DAILY PRN MC SEE COMMENTS ; Start 08/04/18 at 10:15; Status UNV Info (PHARMACY MONITORING -- do not chart) 1 each PRN DAILY PRN MC SEE COMMENTS ; Start 08/04/18 at 10:15; Status UNV Lidocaine/ Epinephrine (LIDOCAINE 1%-EPI 1:100,000 Multi-Dose) 20 ml STK-MED ONCE .ROUTE ; Start 08/04/18 at 14:53; Stop 08/04/18 at 14:54; Status DC Midazolam HCl (Versed) 2 mg STK-MED ONCE .ROUTE ; Start 08/04/18 at 15:42; Stop 08/04/18 at 15:43; Status DC Fentanyl Citrate (Fentanyl 2ml Vial) 100 mcg STK-MED ONCE .ROUTE ; Start at 15:42; Stop 08/04/18 at 15:43; Status DC Cefazolin Sodium/ Dextrose 50 ml @ As Directed STK-MED ONCE IV ; Start 08/04/18 at 15:42; Stop 08/04/18 at 15:43; Status DC Cefazolin Sodium/ Dextrose 50 ml @ 100 mls/hr 1X ONCE IV Last administered on 08/04/18at 16:09; Start 08/04/18 at 16:15; Stop 08/04/18 at 16:44; Status DC Midazolam HCl (Versed) 2 mg 1X ONCE IV Last administered on 08/04/18at 16:11; Start 08/04/18 at 16:15; Stop 08/04/18 at 16:16; Status DC Fentanyl Citrate (Fentanyl 2ml Vial) 100 mcg 1X ONCE IV Last administered on at 16:12; Start 08/04/18 at 16:15; Stop 08/04/18 at 16:16; Status DC Lidocaine/ Epinephrine (LIDOCAINE 1%-EPI 1:100,000 Multi-Dose) 20 ml 1X ONCE IJ Last administered on 08/04/18at 16:10; Start 08/04/18 at 16:15; Stop at 16:16; Status DC Hydralazine HCl (Apresoline Inj) 10 mg 1X ONCE IVP Last administered on at 11:27; Start 08/05/18 at 11:15; Stop 08/05/18 at 11:16; Status DC Insulin Human Lispro (HumaLOG) 10 units TIDWMEALS SQ ; Start 08/05/18 at 12:00; Stop 08/05/18 at 12:00; Status DC Insulin Human Lispro (HumaLOG) 5 units STAT SQ ; Start 08/05/18 at 11:45; Stop 08/05/18 at 16:41; Status DC Darbepoetin Malick (Aranesp) 60 mcg WEEKLYHS SQ Last administered on 08/06/18at 23 :05; Start 08/06/18 at 21:00 Insulin Human Lispro (HumaLOG) 0-9 UNITS TIDWMEALS SQ Last administered on 08/07at 08:46; Start 08/06/18 at 23:00 Dextrose (Dextrose 50%-Water Syringe) 12.5 gm PRN Q15MIN PRN IV SEE COMMENTS; Start 08/06/18 at 23:00 Active Scripts Active Isosorbide Mononitrate Er (Isosorbide Mononitrate) 30 Mg Tab.er.24h 30 Mg PO DAILY 30 Days Furosemide 40 Mg Tablet 40 Mg PO DAILY 30 Days Clonazepam 0.5 Mg Tablet 0.5 Mg PO TID PRN 30 Days Humalog (Insulin Lispro) 100 Unit/1 Ml Insuln.pen 10 Units SQ TIDWMEALS 30 Days Lantus Solostar (Insulin Glargine,Hum.rec.anlog) 100 Unit/1 Ml Insuln.pen 7 Units SQ QHS 30 Days Atorvastatin Calcium 40 Mg Tablet 80 Mg PO QHS 30 Days Amlodipine Besylate 5 Mg Tablet 5 Mg PO DAILYWLUN 30 Days Clopidogrel (Clopidogrel Bisulfate) 75 Mg Tablet 75 Mg PO DAILY 30 Days Lisinopril 20 Mg Tablet 1 Tab PO DAILY 30 Days Aspirin Ec (Aspirin) 81 Mg Tablet.dr 81 Mg PO DAILYWBKFT 30 Days Reported Carvedilol 25 Mg Tablet 20 Mg PO BIDWMEALS Vitals/I & O Vital Sign - Last 24 Hours 08/06/18 08/06/18 08/06/18 08/06/18 11:00 15:00 19:30 20:00 Temp 98.2 97.6 99.2 98.2 97.6 99.2 Pulse 65 68 72 Resp 16 16 20 B/P (MAP) 166/62 (96) 178/67 (104) 177/45 (89) Pulse Ox 98 100 96 O2 Delivery Room Air Room Air Room Air Room Air 08/06/18 08/07/18 08/07/18 23:45 03:49 07:16 Temp 98.7 98.1 97.5 98.7 98.1 97.5 Pulse 66 64 68 Resp 18 18 19 B/P (MAP) 164/46 (85) 182/61 (101) 169/51 (90) Pulse Ox 97 95 94 O2 Delivery Room Air Room Air Room Air Intake and Output 08/06/18 08/06/18 08/07/18 14:59 22:59 06:59 Intake Total 100 ml 250 ml Balance 100 ml 250 ml BIJAN STEELE MD Aug 07, 2018 09:38
[2018-08-07 10:36] VITALS: BP 180/47
[2018-08-07] MEDS ORDERED: IV NORMAL SALINE 1000ML BAG 1,000 ML IV PRN ×2 (14:13)
[2018-08-07] MEDS ORDERED: DIALYSIS PATIENT. MC PRN (14:15)
[2018-08-07] MEDS ORDERED: diphenhydrAMINE 50 MG/ML VIAL IV PRN ×2 (14:15)
[2018-08-07 14:26] VITALS: BP 169/43
--- NOTE | 2018-08-07 15:03 | PDOC ---
SUBJECTIVE ROS Stable OBJECTIVE Vital Signs Vital Signs Date Time Temp Pulse Resp B/P (MAP) Pulse Ox O2 Delivery O2 Flow Rate FiO2 08/07/18 14:26 98.5 69 18 169/43 (85) 98 Room Air 98.5 08/07/18 08:00 2.0 I & 0 Intake and Output 08/07/18 06:59 Intake Total 350 ml Balance 350 ml Intake Oral 350 ml PHYSICAL EXAM Physical Exam GEN: NAD HEEN: OM moist NECK: Supple CVS: RRR RESP: CTA Bilat, No Acc. 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-a-cath replaced on 08/04 HTN- Improved Post HD Continue Antihypertensives DM COMMENT/RELEVANT DATA Meds Current Medications Medications (Trade) Dose Ordered Sig/[place] Start Time Stop Time Status Last Admin Dose Admin Albumin Human 200 ml @ 200 mls/hr 1X PRN PRN 08/03/18 20:00 08/04/18 06:00 DC Albuterol Sulfate (Ventolin Neb Soln) 10 mg 1X ONCE 08/03/18 17:15 08/03/18 17:18 DC 08/03/18 17:32 10 MG Alteplase, Recombinant (Cathflo For Central Catheter Clearance) 2 mg 1X ONCE 08/04/18 08:15 08/04/18 08:16 DC 08/04/18 08:50 2 MG Cefazolin Sodium/ Dextrose 50 ml @ 100 mls/hr 1X ONCE 08/04/18 16:15 08/04/18 16:44 DC 08/04/18 16:09 100 MLS/HR Clonidine HCl (Catapres) 0.1 mg 1X ONCE 08/03/18 16:15 08/03/18 16:16 DC 08/03/18 16:50 0.1 MG Darbepoetin Malick (Aranesp) 60 mcg WEEKLYHS 08/06/18 21:00 08/06/18 23:05 60 MCG Dextrose (Dextrose 50%-Water Syringe) 12.5 gm PRN Q15MIN PRN 08/06/18 23:00 Diphenhydramine HCl (Benadryl) 25 mg 1X PRN PRN 08/07/18 14:15 08/08/18 14:14 Fentanyl Citrate (Fentanyl 2ml Vial) 100 mcg 1X ONCE 08/04/18 16:15 08/04/18 16:16 DC 08/04/18 16:12 50 MCG Hydralazine HCl (Apresoline Inj) 10 mg 1X ONCE 08/05/18 11:15 08/05/18 11:16 DC 08/05/18 11:27 10 MG Info (PHARMACY MONITORING -- do not chart) 1 each PRN DAILY PRN 08/07/18 14:15 UNV Insulin Human Lispro (HumaLOG) 0-9 UNITS TIDWMEALS 08/06/18 23:00 08/07/18 11:53 4 UNITS Insulin Human Regular (HumuLIN R VIAL) 10 unit 1X ONCE 08/03/18 17:15 08/03/18 17:18 DC 08/03/18 17:45 10 UNIT Lidocaine/ Epinephrine (LIDOCAINE 1%-EPI 1:100,000 Multi-Dose) 20 ml 1X ONCE 08/04/18 16:15 08/04/18 16:16 DC 08/04/18 16:10 5 ML Midazolam HCl (Versed) 2 mg 1X ONCE 08/04/18 16:15 08/04/18 16:16 DC 08/04/18 16:11 1 MG Sodium Bicarbonate (Sodium Bicarb Adult 8.4% Syr) 50 meq 1X ONCE 08/03/18 17:15 08/03/18 17:18 DC 08/03/18 17:46 50 MEQ Sodium Chloride 1,000 ml @ 400 mls/hr Q2H30M PRN 08/07/18 14:13 08/08/18 02:12 Sodium Chloride (Normal Saline Flush) 10 ml 1X PRN PRN 08/03/18 19:45 08/04/18 06:00 DC Lab Laboratory Tests Test 08/06/18 17:01 08/06/18 19:45 08/07/18 04:23 08/07/18 07:18 Glucose (Fingerstick) 220 mg/dL (70-99) 306 mg/dL (70-99) 156 mg/dL (70-99) White Blood Count 5.9 x10^3/uL (4.0-11.0) Red Blood Count 3.11 x10^6/uL (3.50-5.40) Hemoglobin 10.0 g/dL (12.0-15.5) Hematocrit 30.2 % (36.0-47.0) Mean Corpuscular Volume 97 fL (79-100) Mean Corpuscular Hemoglobin 32 pg (25-35) Mean Corpuscular Hemoglobin Concent 33 g/dL (31-37) Red Cell Distribution Width 14.6 % (11.5-14.5) Platelet Count 153 x10^3/uL (140-400) Sodium Level 137 mmol/L (136-145) Potassium Level 4.8 mmol/L (3.5-5.1) Chloride Level 98 mmol/L (98-107) Carbon Dioxide Level 23 mmol/L (21-32) Anion Gap 16 (6-14) Blood Urea Nitrogen 59 mg/dL (7-20) Creatinine 9.1 mg/dL (0.6-1.0) Estimated GFR (Cockcroft-Gault) 4.4 Glucose Level 161 mg/dL (70-99) Calcium Level 7.3 mg/dL (8.5-10.1) Test 08/07/18 11:23 Glucose (Fingerstick) 190 mg/dL (70-99) Results All relevant outside records, renal labs, imaging studies, telemetry/EKG's were reviewed. JAIMEE MATIAS MD Aug 07, 2018 15:03
[2018-08-07] MEDS ORDERED: clonazePAM 0.5 MG TABLET PO PRN (18:30)
--- NOTE | 2018-08-07 18:48 | NUR ---
urology physician reported pt being hypertensive. pg to Dr. Montanez. Home meds restarted.
[2018-08-07 19:46] VITALS: BP 215/64
[2018-08-07] MEDS: ATORVASTATIN CALCIUM 40 MG TABLET. PO SCH (21:06)
[2018-08-07] MEDS: CARVEDILOL 12.5 MG TABLET. PO SCH (21:07)
[2018-08-07] MEDS: INSULIN GLARGINE 300 UNITS/3 ML INSULN.PEN. SQ SCH (21:08)
--- NOTE | 2018-08-07 21:18 | NUR ---
This RN administered patient's 1700 sliding scale insulin at this time as an HS insulin dose. Patient was in dialysis when medication was due and during dinner time. Patient arrived back in room around 1845 and finished eating at about 2014, when blood glucose was tested. Patient's glucose was 293. paged around 2039. Patient received 4 units of homolog per sliding scale. This RN will continue to monitor the patient at this time.
[2018-08-07 23:20] VITALS: BP 171/57
[2018-08-08] VITALS (7 sets, daily range): BP systolic 131–178; BP diastolic 46–59
[2018-08-08] MEDS: INSULIN LISPRO 300 UNITS/3 ML INSULN.PEN. SQ SCH ×3 (08:00→16:59)
[2018-08-08] MEDS: CLOPIDOGREL BISULFATE 75 MG TABLET PO SCH (08:37)
[2018-08-08] MEDS: ASPIRIN ENTERIC COATED 81 MG TABLET.DR. PO SCH (08:40)
[2018-08-08] MEDS: LISINOPRIL 20 MG TABLET PO SCH (08:40)
[2018-08-08] MEDS: ISOSORBIDE MONONITRATE ER 30 MG TAB.ER.24H PO SCH (08:40)
[2018-08-08] MEDS: FUROSEMIDE 40 MG TABLET. PO SCH (08:40)
[2018-08-08] MEDS: CARVEDILOL 12.5 MG TABLET. PO SCH ×2 (08:41→17:07)
--- NOTE | 2018-08-08 10:40 | PDOC ---
PROGRESS NOTES History of Present Illness History of Present Illness Assessment/Plan Assessment/Plan Assessment/Plan IMPRESSION 1. ESRD ON DIALYSIS 2. NONCOMPLIANCE remains at HIGH RISK OF COMPLICATIONS// due to noncompliance with dialysis 3. HX HTN 4. OBESITY 5. ACUTE VOLUME OVERLOAD 6. ANEMIA 7. Minimal bibasilar lung airspace opacities likely atelectasis or infiltrates.. 8. uncontrolled hypertension 08/05, 08/08 196/70, not improved PLAN Replacement of right internal jugular tunnel dialysis catheter 08/04 iv hydralazine 10mg q 4 hrs prn bp support tele BED ADMIT DIALYSIS emergent 08/03 CONSULT NEPHROLOGY HOME MEDS PRESYBETERIAN [facility] NO BLOOD PRODUCTS LOWER K EMERGENTLY DR MATIAS following NEW TUNNELED CATHETER 08/07 planned HD AFTER NEW CATHETER inc norvasc to 5 mg po bid Vitals Vitals Vital Signs Date Time Temp Pulse Resp B/P (MAP) Pulse Ox O2 Delivery O2 Flow Rate FiO2 08/08/18 10:38 98.6 65 18 175/57 (96) 100 Room Air 98.6 08/07/18 08:00 2.0 Physical Exam General: Alert, Oriented X3, Cooperative, No acute distress Heart: Regular rate, Normal S1 Lungs: Clear, Crackles, Other Abdomen: Normal bowel sounds, Soft, No tenderness Extremities: No clubbing, No cyanosis Skin: No significant lesion Labs LABS Laboratory Tests Test 08/07/18 11:23 08/07/18 18:42 08/07/18 20:04 08/08/18 07:00 Glucose (Fingerstick) 190 mg/dL (70-99) 102 mg/dL (70-99) 293 mg/dL (70-99) 138 mg/dL (70-99) Assessment and Plan Assessmemt and Plan Problems Medical Problems: (1) Hyperkalemia Status: Acute (2) Hypermagnesemia Status: Acute (3) Hyperphosphatemia Status: Acute (4) Hypertensive urgency Status: Acute (5) Missed dialysis Status: Acute (6) Problem with dialysis access Status: Acute (7) Uncontrolled diabetes mellitus Status: Acute Comment Review of Relevant I have reviewed the following items fede (where applicable) has been applied. Labs Laboratory Tests Test 08/06/18 11:04 08/06/18 17:01 08/06/18 19:45 08/07/18 04:23 Glucose (Fingerstick) 247 mg/dL (70-99) 220 mg/dL (70-99) 306 mg/dL (70-99) White Blood Count 5.9 x10^3/uL (4.0-11.0) Red Blood Count 3.11 x10^6/uL (3.50-5.40) Hemoglobin 10.0 g/dL (12.0-15.5) Hematocrit 30.2 % (36.0-47.0) Mean Corpuscular Volume 97 fL (79-100) Mean Corpuscular Hemoglobin 32 pg (25-35) Mean Corpuscular Hemoglobin Concent 33 g/dL (31-37) Red Cell Distribution Width 14.6 % (11.5-14.5) Platelet Count 153 x10^3/uL (140-400) Sodium Level 137 mmol/L (136-145) Potassium Level 4.8 mmol/L (3.5-5.1) Chloride Level 98 mmol/L (98-107) Carbon Dioxide Level 23 mmol/L (21-32) Anion Gap 16 (6-14) Blood Urea Nitrogen 59 mg/dL (7-20) Creatinine 9.1 mg/dL (0.6-1.0) Estimated GFR (Cockcroft-Gault) 4.4 Glucose Level 161 mg/dL (70-99) Calcium Level 7.3 mg/dL (8.5-10.1) Test 08/07/18 07:18 08/07/18 11:23 08/07/18 18:42 08/07/18 20:04 Glucose (Fingerstick) 156 mg/dL (70-99) 190 mg/dL (70-99) 102 mg/dL (70-99) 293 mg/dL (70-99) Test 08/08/18 07:00 Glucose (Fingerstick) 138 mg/dL (70-99) Laboratory Tests Test 08/07/18 11:23 08/07/18 18:42 08/07/18 20:04 08/08/18 07:00 Glucose (Fingerstick) 190 mg/dL (70-99) 102 mg/dL (70-99) 293 mg/dL (70-99) 138 mg/dL (70-99) Medications Current Medications Clonidine HCl (Catapres) 0.1 mg 1X ONCE PO Last administered on 08/03/18at 16: 50; Start 08/03/18 at 16:15; Stop 08/03/18 at 16:16; Status DC Albuterol Sulfate (Ventolin Neb Soln) 10 mg 1X ONCE CONT NEB Last administered on 08/03/18at 17:32; Start 08/03/18 at 17:15; Stop 08/03/18 at 17:18 ; Status DC Dextrose (Dextrose 50%-Water Syringe) 25 gm 1X ONCE IV Last administered on 03/13at 17:41; Start 08/03/18 at 17:15; Stop 08/03/18 at 17:18; Status DC Insulin Human Regular (HumuLIN R VIAL) 10 unit 1X ONCE IV Last administered on 08/03/18at 17:45; Start 08/03/18 at 17:15; Stop 08/03/18 at 17:18; Status DC Sodium Bicarbonate (Sodium Bicarb Adult 8.4% Syr) 50 meq 1X ONCE IV Last administered on 08/03/18at 17:46; Start 08/03/18 at 17:15; Stop 08/03/18 at 17:18 ; Status DC Sodium Chloride 1,000 ml @ 1,000 mls/hr Q1H PRN IV hypotension; Start 08/03/18 at 20:00; Stop 08/04/18 at 06:00; Status DC Albumin Human 200 ml @ 200 mls/hr 1X PRN PRN IV Hypotension; Start 08/03/18 at 20:00; Stop 08/04/18 at 06:00; Status DC Sodium Chloride (Normal Saline Flush) 10 ml 1X PRN PRN IV AP catheter pack; Start 08/03/18 at 19:45; Stop 08/04/18 at 06:00; Status DC Sodium Chloride (Normal Saline Flush) 10 ml 1X PRN PRN 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; Start 08/03/18 at 19:45; Stop 08/04/18 at 06:00; Status DC Sodium Chloride 1,000 ml @ 400 mls/hr Q2H30M PRN IV PATENCY; Start 08/03/18 at 20:00; Stop 08/04/18 at 06:00; Status DC Info (PHARMACY MONITORING -- do not chart) 1 each PRN DAILY PRN MC SEE COMMENTS ; Start 08/03/18 at 19:45 Info (PHARMACY MONITORING -- do not chart) 1 each PRN DAILY PRN MC SEE COMMENTS ; Start 08/03/18 at 19:45; Status UNV Alteplase, Recombinant (Cathflo For Central Catheter Clearance) 2 mg 1X ONCE INT CAT Last administered on 08/04/18at 08:50; Start 08/04/18 at 08:15; Stop 04/12 at 08:16; Status DC Sodium Chloride 1,000 ml @ 1,000 mls/hr Q1H PRN IV hypotension; Start 08/04/18 at 10:05; Stop 08/04/18 at 16:30; Status DC Sodium Chloride 1,000 ml @ 400 mls/hr Q2H30M PRN IV PATENCY; Start 08/04/18 at 10:05; Stop 08/04/18 at 16:30; Status DC Info (PHARMACY MONITORING -- do not chart) 1 each PRN DAILY PRN MC SEE COMMENTS ; Start 08/04/18 at 10:15; Status UNV Info (PHARMACY MONITORING -- do not chart) 1 each PRN DAILY PRN MC SEE COMMENTS ; Start 08/04/18 at 10:15; Status UNV Lidocaine/ Epinephrine (LIDOCAINE 1%-EPI 1:100,000 Multi-Dose) 20 ml STK-MED ONCE .ROUTE ; Start 08/04/18 at 14:53; Stop 08/04/18 at 14:54; Status DC Midazolam HCl (Versed) 2 mg STK-MED ONCE .ROUTE ; Start 08/04/18 at 15:42; Stop 08/04/18 at 15:43; Status DC Fentanyl Citrate (Fentanyl 2ml Vial) 100 mcg STK-MED ONCE .ROUTE ; Start at 15:42; Stop 08/04/18 at 15:43; Status DC Cefazolin Sodium/ Dextrose 50 ml @ As Directed STK-MED ONCE IV ; Start 08/04/18 at 15:42; Stop 08/04/18 at 15:43; Status DC Cefazolin Sodium/ Dextrose 50 ml @ 100 mls/hr 1X ONCE IV Last administered on 08/04/18at 16:09; Start 08/04/18 at 16:15; Stop 08/04/18 at 16:44; Status DC Midazolam HCl (Versed) 2 mg 1X ONCE IV Last administered on 08/04/18at 16:11; Start 08/04/18 at 16:15; Stop 08/04/18 at 16:16; Status DC Fentanyl Citrate (Fentanyl 2ml Vial) 100 mcg 1X ONCE IV Last administered on at 16:12; Start 08/04/18 at 16:15; Stop 08/04/18 at 16:16; Status DC Lidocaine/ Epinephrine (LIDOCAINE 1%-EPI 1:100,000 Multi-Dose) 20 ml 1X ONCE IJ Last administered on 08/04/18at 16:10; Start 08/04/18 at 16:15; Stop at 16:16; Status DC Hydralazine HCl (Apresoline Inj) 10 mg 1X ONCE IVP Last administered on at 11:27; Start 08/05/18 at 11:15; Stop 08/05/18 at 11:16; Status DC Insulin Human Lispro (HumaLOG) 10 units TIDWMEALS SQ ; Start 08/05/18 at 12:00; Stop 08/05/18 at 12:00; Status DC Insulin Human Lispro (HumaLOG) 5 units STAT SQ ; Start 08/05/18 at 11:45; Stop 08/05/18 at 16:41; Status DC Darbepoetin Malick (Aranesp) 60 mcg WEEKLYHS SQ Last administered on 08/06/18at 23 :05; Start 08/06/18 at 21:00 Insulin Human Lispro (HumaLOG) 0-9 UNITS TIDWMEALS SQ Last administered on 08/07at 21:08; Start 08/06/18 at 23:00 Dextrose (Dextrose 50%-Water Syringe) 12.5 gm PRN Q15MIN PRN IV SEE COMMENTS; Start 08/06/18 at 23:00 Sodium Chloride 1,000 ml @ 1,000 mls/hr Q1H PRN IV hypotension; Start 08/07/18 at 14:13; Stop 08/07/18 at 20:12; Status DC Diphenhydramine HCl (Benadryl) 25 mg 1X PRN PRN IV ITCHING; Start 08/07/18 at 14:15; Stop 08/08/18 at 14:14 Diphenhydramine HCl (Benadryl) 25 mg 1X PRN PRN IV ITCHING; Start 08/07/18 at 14:15; Stop 08/08/18 at 14:14 Sodium Chloride 1,000 ml @ 400 mls/hr Q2H30M PRN IV PATENCY; Start 08/07/18 at 14:13; Stop 08/08/18 at 02:12; Status DC Info (PHARMACY MONITORING -- do not chart) 1 each PRN DAILY PRN MC SEE COMMENTS ; Start 08/07/18 at 14:15; Status UNV Amlodipine Besylate (Norvasc) 5 mg DAILYWLUN PO ; Start 08/08/18 at 12:00 Aspirin (Ecotrin) 81 mg DAILYWBKFT PO Last administered on 08/08/18 08:40; Start 08/08/18 at 08:00 Atorvastatin Calcium (Lipitor) 80 mg QHS PO Last administered on 08/07/18at 21: 06; Start 08/07/18 at 21:00 Clonazepam (KlonoPIN) 0.5 mg PRN TID PRN PO ANXIETY / AGITATION; Start at 18:30 Clopidogrel Bisulfate (Plavix) 75 mg DAILY PO Last administered on 08/08/18at 08 :37; Start 08/08/18 at 09:00 Furosemide (Lasix) 40 mg DAILY PO Last administered on 08/08/18 08:40; Start 08/08/18 at 09:00 Insulin Glargine (Lantus) 7 units QHS SQ Last administered on 08/07/18at 21:08; Start 08/07/18 at 21:00 Isosorbide Mononitrate (Imdur) 30 mg DAILY PO Last administered on 08/08/18at 08 :40; Start 08/08/18 at 09:00 Lisinopril (Prinivil) 20 mg DAILY PO Last administered on 08/08/18 08:40; Start 08/08/18 at 09:00 Carvedilol (Coreg) 25 mg BIDWMEALS PO Last administered on 08/08/18 08:41; Start 08/07/18 at 21:00 Active Scripts Active Isosorbide Mononitrate Er (Isosorbide Mononitrate) 30 Mg Tab.er.24h 30 Mg PO DAILY 30 Days Furosemide 40 Mg Tablet 40 Mg PO DAILY 30 Days Clonazepam 0.5 Mg Tablet 0.5 Mg PO TID PRN 30 Days Humalog (Insulin Lispro) 100 Unit/1 Ml Insuln.pen 10 Units SQ TIDWMEALS 30 Days Lantus Solostar (Insulin Glargine,Hum.rec.anlog) 100 Unit/1 Ml Insuln.pen 7 Units SQ QHS 30 Days Atorvastatin Calcium 40 Mg Tablet 80 Mg PO QHS 30 Days Amlodipine Besylate 5 Mg Tablet 5 Mg PO DAILYWLUN 30 Days Clopidogrel (Clopidogrel Bisulfate) 75 Mg Tablet 75 Mg PO DAILY 30 Days Lisinopril 20 Mg Tablet 1 Tab PO DAILY 30 Days Aspirin Ec (Aspirin) 81 Mg Tablet.dr 81 Mg PO DAILYWBKFT 30 Days Reported Carvedilol 25 Mg Tablet 20 Mg PO BIDWMEALS Vitals/I & O Vital Sign - Last 24 Hours 08/07/18 08/07/18 08/07/18 08/07/18 14:26 19:46 20:00 21:07 Temp 98.5 97.5 98.5 97.5 Pulse 69 64 75 Resp 18 16 B/P (MAP) 169/43 (85) 215/64 (114) 198/62 Pulse Ox 98 100 O2 Delivery Room Air Room Air Room Air 08/07/18 08/08/18 08/08/18 08/08/18 23:20 03:16 07:11 08:40 Temp 99.2 99.1 98.7 99.2 99.1 98.7 Pulse 75 67 64 68 Resp 16 16 18 B/P (MAP) 171/57 (95) 131/59 (83) 159/50 (86) 195/50 Pulse Ox 95 98 97 O2 Delivery Room Air Room Air Room Air 08/08/18 08/08/18 08/08/18 08:40 08:41 10:38 Temp 98.6 98.6 Pulse 68 68 65 Resp 18 B/P (MAP) 195/50 195/50 175/57 (96) Pulse Ox 100 O2 Delivery Room Air Intake and Output 08/07/18 08/07/18 08/08/18 15:00 23:00 07:00 Intake Total 300 ml 540 ml 300 ml Balance 300 ml 540 ml 300 ml BIJAN STEELE MD Aug 08, 2018 10:40
[2018-08-08] MEDS ORDERED: amLODIPine BESYLATE 5 MG TABLET PO SCH (12:00)
[2018-08-08 13:50] LABS: ALBUMIN 2.9 g/dL (3.4-5.0); CALCIUM 7.7 mg/dL (8.5-10.1); CREATININE 6.3 mg/dL (0.6-1.0); GFR 6.7; PHOSPHORUS 5.9 mg/dL (2.6-4.7); POTASSIUM 4.8 mmol/L (3.5-5.1)
[2018-08-08] MEDS: ATORVASTATIN CALCIUM 40 MG TABLET. PO SCH (20:45)
[2018-08-08] MEDS: amLODIPine BESYLATE 5 MG TABLET PO SCH (20:46)
[2018-08-08] MEDS: INSULIN GLARGINE 300 UNITS/3 ML INSULN.PEN. SQ SCH (20:52)
[2018-08-09 03:00] VITALS: BP 148/52
[2018-08-09 07:05] VITALS: BP 145/47
[2018-08-09] MEDS ORDERED: IV NORMAL SALINE 1000ML BAG 1,000 ML IV PRN ×2 (07:48)
[2018-08-09] MEDS: INSULIN LISPRO 300 UNITS/3 ML INSULN.PEN. SQ SCH ×2 (08:00→12:00)
[2018-08-09] MEDS ORDERED: DIALYSIS PATIENT. MC PRN ×2 (08:00)
[2018-08-09] MEDS ORDERED: ALBUMIN HUMAN 25% 200 ML IV PRN (08:00)
--- NOTE | 2018-08-09 10:10 | PDOC ---
PROGRESS NOTES History of Present Illness History of Present Illness Assessment/Plan Assessment/Plan Assessment/Plan IMPRESSION 1. ESRD ON DIALYSIS 2. NONCOMPLIANCE remains at HIGH RISK OF COMPLICATIONS// due to noncompliance with dialysis 3. HX HTN 4. OBESITY 5. ACUTE VOLUME OVERLOAD 6. ANEMIA 7. Minimal bibasilar lung airspace opacities likely atelectasis or infiltrates.. 8. uncontrolled hypertension 08/05 196/70 PLAN Replacement of right internal jugular tunnel dialysis catheter 08/04 iv hydralazine 10mg q 4 hrs prn bp support tele BED ADMIT DIALYSIS emergent 08/03 CONSULT NEPHROLOGY HOME MEDS CHEONDOISM EPISCOPAL NO BLOOD PRODUCTS LOWER K EMERGENTLY DR MATIAS following NEW TUNNELED CATHETER 08/07 HD AFTER NEW CATHETER THEN OK TO D/C 34 min pt exam, D/C PLANNING TIME chart review, > 50% of time spent with exam, chart review, pt care coordination Vitals Vitals Vital Signs Date Time Temp Pulse Resp B/P (MAP) Pulse Ox O2 Delivery O2 Flow Rate FiO2 08/09/18 08:00 Room Air 08/09/18 07:05 98.1 65 17 145/47 (79) 97 98.1 Physical Exam General: Alert, Oriented X3, Cooperative, No acute distress Heart: Regular rate, Normal S1 Lungs: Clear, Crackles, Other Abdomen: Normal bowel sounds, Soft, No tenderness Extremities: No clubbing, No cyanosis, No edema Skin: No significant lesion Labs LABS Laboratory Tests Test 08/08/18 11:34 08/08/18 13:15 08/08/18 16:52 08/08/18 20:21 Glucose (Fingerstick) 272 mg/dL (70-99) 121 mg/dL (70-99) 273 mg/dL (70-99) Sodium Level 135 mmol/L (136-145) Potassium Level 4.8 mmol/L (3.5-5.1) Chloride Level 98 mmol/L (98-107) Carbon Dioxide Level 27 mmol/L (21-32) Anion Gap 10 (6-14) Blood Urea Nitrogen 32 mg/dL (7-20) Creatinine 6.3 mg/dL (0.6-1.0) Estimated GFR (Cockcroft-Gault) 6.7 Glucose Level 240 mg/dL (70-99) Calcium Level 7.7 mg/dL (8.5-10.1) Phosphorus Level 5.9 mg/dL (2.6-4.7) Albumin 2.9 g/dL (3.4-5.0) Test 08/09/18 07:03 Glucose (Fingerstick) 156 mg/dL (70-99) Assessment and Plan Assessmemt and Plan Problems Medical Problems: (1) Hyperkalemia Status: Acute (2) Hypermagnesemia Status: Acute (3) Hyperphosphatemia Status: Acute (4) Hypertensive urgency Status: Acute (5) Missed dialysis Status: Acute (6) Problem with dialysis access Status: Acute (7) Uncontrolled diabetes mellitus Status: Acute Comment Review of Relevant I have reviewed the following items fede (where applicable) has been applied. Labs Laboratory Tests Test 08/07/18 11:23 08/07/18 18:42 08/07/18 20:04 08/08/18 07:00 Glucose (Fingerstick) 190 mg/dL (70-99) 102 mg/dL (70-99) 293 mg/dL (70-99) 138 mg/dL (70-99) Test 08/08/18 11:34 08/08/18 13:15 08/08/18 16:52 08/08/18 20:21 Glucose (Fingerstick) 272 mg/dL (70-99) 121 mg/dL (70-99) 273 mg/dL (70-99) Sodium Level 135 mmol/L (136-145) Potassium Level 4.8 mmol/L (3.5-5.1) Chloride Level 98 mmol/L (98-107) Carbon Dioxide Level 27 mmol/L (21-32) Anion Gap 10 (6-14) Blood Urea Nitrogen 32 mg/dL (7-20) Creatinine 6.3 mg/dL (0.6-1.0) Estimated GFR (Cockcroft-Gault) 6.7 Glucose Level 240 mg/dL (70-99) Calcium Level 7.7 mg/dL (8.5-10.1) Phosphorus Level 5.9 mg/dL (2.6-4.7) Albumin 2.9 g/dL (3.4-5.0) Test 08/09/18 07:03 Glucose (Fingerstick) 156 mg/dL (70-99) Laboratory Tests Test 08/08/18 11:34 08/08/18 13:15 08/08/18 16:52 08/08/18 20:21 Glucose (Fingerstick) 272 mg/dL (70-99) 121 mg/dL (70-99) 273 mg/dL (70-99) Sodium Level 135 mmol/L (136-145) Potassium Level 4.8 mmol/L (3.5-5.1) Chloride Level 98 mmol/L (98-107) Carbon Dioxide Level 27 mmol/L (21-32) Anion Gap 10 (6-14) Blood Urea Nitrogen 32 mg/dL (7-20) Creatinine 6.3 mg/dL (0.6-1.0) Estimated GFR (Cockcroft-Gault) 6.7 Glucose Level 240 mg/dL (70-99) Calcium Level 7.7 mg/dL (8.5-10.1) Phosphorus Level 5.9 mg/dL (2.6-4.7) Albumin 2.9 g/dL (3.4-5.0) Test 08/09/18 07:03 Glucose (Fingerstick) 156 mg/dL (70-99) Medications Current Medications Clonidine HCl (Catapres) 0.1 mg 1X ONCE PO Last administered on 08/03/18at 16: 50; Start 08/03/18 at 16:15; Stop 08/03/18 at 16:16; Status DC Albuterol Sulfate (Ventolin Neb Soln) 10 mg 1X ONCE CONT NEB Last administered on 08/03/18at 17:32; Start 08/03/18 at 17:15; Stop 08/03/18 at 17:18 ; Status DC Dextrose (Dextrose 50%-Water Syringe) 25 gm 1X ONCE IV Last administered on 03/13at 17:41; Start 08/03/18 at 17:15; Stop 08/03/18 at 17:18; Status DC Insulin Human Regular (HumuLIN R VIAL) 10 unit 1X ONCE IV Last administered on 08/03/18at 17:45; Start 08/03/18 at 17:15; Stop 08/03/18 at 17:18; Status DC Sodium Bicarbonate (Sodium Bicarb Adult 8.4% Syr) 50 meq 1X ONCE IV Last administered on 08/03/18at 17:46; Start 08/03/18 at 17:15; Stop 08/03/18 at 17:18 ; Status DC Sodium Chloride 1,000 ml @ 1,000 mls/hr Q1H PRN IV hypotension; Start 08/03/18 at 20:00; Stop 08/04/18 at 06:00; Status DC Albumin Human 200 ml @ 200 mls/hr 1X PRN PRN IV Hypotension; Start 08/03/18 at 20:00; Stop 08/04/18 at 06:00; Status DC Sodium Chloride (Normal Saline Flush) 10 ml 1X PRN PRN IV AP catheter pack; Start 08/03/18 at 19:45; Stop 08/04/18 at 06:00; Status DC Sodium Chloride (Normal Saline Flush) 10 ml 1X PRN PRN IV SHUTTLE SPOTTER catheter pack; Start 08/03/18 at 19:45; Stop 08/04/18 at 06:00; Status DC Sodium Chloride 1,000 ml @ 400 mls/hr Q2H30M PRN IV PATENCY; Start 08/03/18 at 20:00; Stop 08/04/18 at 06:00; Status DC Info (PHARMACY MONITORING -- do not chart) 1 each PRN DAILY PRN MC SEE COMMENTS ; Start 08/03/18 at 19:45 Info (PHARMACY MONITORING -- do not chart) 1 each PRN DAILY PRN MC SEE COMMENTS ; Start 08/03/18 at 19:45; Status UNV Alteplase, Recombinant (Cathflo For Central Catheter Clearance) 2 mg 1X ONCE INT CAT Last administered on 08/04/18at 08:50; Start 08/04/18 at 08:15; Stop 04/12 at 08:16; Status DC Sodium Chloride 1,000 ml @ 1,000 mls/hr Q1H PRN IV hypotension; Start 08/04/18 at 10:05; Stop 08/04/18 at 16:30; Status DC Sodium Chloride 1,000 ml @ 400 mls/hr Q2H30M PRN IV PATENCY; Start 08/04/18 at 10:05; Stop 08/04/18 at 16:30; Status DC Info (PHARMACY MONITORING -- do not chart) 1 each PRN DAILY PRN MC SEE COMMENTS ; Start 08/04/18 at 10:15; Status UNV Info (PHARMACY MONITORING -- do not chart) 1 each PRN DAILY PRN MC SEE COMMENTS ; Start 08/04/18 at 10:15; Status UNV Lidocaine/ Epinephrine (LIDOCAINE 1%-EPI 1:100,000 Multi-Dose) 20 ml STK-MED ONCE .ROUTE ; Start 08/04/18 at 14:53; Stop 08/04/18 at 14:54; Status DC Midazolam HCl (Versed) 2 mg STK-MED ONCE .ROUTE ; Start 08/04/18 at 15:42; Stop 08/04/18 at 15:43; Status DC Fentanyl Citrate (Fentanyl 2ml Vial) 100 mcg STK-MED ONCE .ROUTE ; Start at 15:42; Stop 08/04/18 at 15:43; Status DC Cefazolin Sodium/ Dextrose 50 ml @ As Directed STK-MED ONCE IV ; Start 08/04/18 at 15:42; Stop 08/04/18 at 15:43; Status DC Cefazolin Sodium/ Dextrose 50 ml @ 100 mls/hr 1X ONCE IV Last administered on 08/04/18at 16:09; Start 08/04/18 at 16:15; Stop 08/04/18 at 16:44; Status DC Midazolam HCl (Versed) 2 mg 1X ONCE IV Last administered on 08/04/18at 16:11; Start 08/04/18 at 16:15; Stop 08/04/18 at 16:16; Status DC Fentanyl Citrate (Fentanyl 2ml Vial) 100 mcg 1X ONCE IV Last administered on at 16:12; Start 08/04/18 at 16:15; Stop 08/04/18 at 16:16; Status DC Lidocaine/ Epinephrine (LIDOCAINE 1%-EPI 1:100,000 Multi-Dose) 20 ml 1X ONCE IJ Last administered on 08/04/18at 16:10; Start 08/04/18 at 16:15; Stop at 16:16; Status DC Hydralazine HCl (Apresoline Inj) 10 mg 1X ONCE IVP Last administered on at 11:27; Start 08/05/18 at 11:15; Stop 08/05/18 at 11:16; Status DC Insulin Human Lispro (HumaLOG) 10 units TIDWMEALS SQ ; Start 08/05/18 at 12:00; Stop 08/05/18 at 12:00; Status DC Insulin Human Lispro (HumaLOG) 5 units STAT SQ ; Start 08/05/18 at 11:45; Stop 08/05/18 at 16:41; Status DC Darbepoetin Malick (Aranesp) 60 mcg WEEKLYHS SQ Last administered on 08/06/18at 23 :05; Start 08/06/18 at 21:00 Insulin Human Lispro (HumaLOG) 0-9 UNITS TIDWMEALS SQ Last administered on 08/08at 12:01; Start 08/06/18 at 23:00 Dextrose (Dextrose 50%-Water Syringe) 12.5 gm PRN Q15MIN PRN IV SEE COMMENTS; Start 08/06/18 at 23:00 Sodium Chloride 1,000 ml @ 1,000 mls/hr Q1H PRN IV hypotension; Start 08/07/18 at 14:13; Stop 08/07/18 at 20:12; Status DC Diphenhydramine HCl (Benadryl) 25 mg 1X PRN PRN IV ITCHING; Start 08/07/18 at 14:15; Stop 08/08/18 at 14:14; Status DC Diphenhydramine HCl (Benadryl) 25 mg 1X PRN PRN IV ITCHING; Start 08/07/18 at 14:15; Stop 08/08/18 at 14:14; Status DC Sodium Chloride 1,000 ml @ 400 mls/hr Q2H30M PRN IV PATENCY; Start 08/07/18 at 14:13; Stop 08/08/18 at 02:12; Status DC Info (PHARMACY MONITORING -- do not chart) 1 each PRN DAILY PRN MC SEE COMMENTS ; Start 08/07/18 at 14:15; Status UNV Amlodipine Besylate (Norvasc) 5 mg DAILYWLUN PO Last administered on 08/08/18at 12:00; Start 08/08/18 at 12:00; Stop 08/08/18 at 12:14; Status DC Aspirin (Ecotrin) 81 mg DAILYWBKFT PO Last administered on 08/08/18at 08:40; Start 08/08/18 at 08:00 Atorvastatin Calcium (Lipitor) 80 mg QHS PO Last administered on 08/08/18at 20: 45; Start 08/07/18 at 21:00 Clonazepam (KlonoPIN) 0.5 mg PRN TID PRN PO ANXIETY / AGITATION; Start at 18:30 Clopidogrel Bisulfate (Plavix) 75 mg DAILY PO Last administered on 08/08/18at 08 :37; Start 08/08/18 at 09:00 Furosemide (Lasix) 40 mg DAILY PO Last administered on 08/08/18at 08:40; Start 08/08/18 at 09:00 Insulin Glargine (Lantus) 7 units QHS SQ Last administered on 08/08/18at 20:52; Start 08/07/18 at 21:00 Isosorbide Mononitrate (Imdur) 30 mg DAILY PO Last administered on 08/08/18 08 :40; Start 08/08/18 at 09:00 Lisinopril (Prinivil) 20 mg DAILY PO Last administered on 08/08/18 08:40; Start 08/08/18 at 09:00 Carvedilol (Coreg) 25 mg BIDWMEALS PO Last administered on 08/08/18at 17:07; Start 08/07/18 at 21:00 Amlodipine Besylate (Norvasc) 5 mg BID PO Last administered on 08/08/18at 20:46 ; Start 08/08/18 at 21:00 Hydralazine HCl (Apresoline) 50 mg TID PO Last administered on 08/08/18 20:46 ; Start 08/08/18 at 14:00 Sodium Chloride 1,000 ml @ 1,000 mls/hr Q1H PRN IV hypotension; Start 08/09/18 at 07:48; Stop 08/09/18 at 13:47 Albumin Human 200 ml @ 200 mls/hr 1X PRN PRN IV Hypotension; Start 08/09/18 at 08:00; Stop 08/09/18 at 13:59 Sodium Chloride 1,000 ml @ 400 mls/hr Q2H30M PRN IV PATENCY; Start 08/09/18 at 07:48; Stop 08/09/18 at 19:47 Info (PHARMACY MONITORING -- do not chart) 1 each PRN DAILY PRN MC SEE COMMENTS ; Start 08/09/18 at 08:00; Status UNV Info (PHARMACY MONITORING -- do not chart) 1 each PRN DAILY PRN MC SEE COMMENTS ; Start 08/09/18 at 08:00; Status UNV Active Scripts Active Isosorbide Mononitrate Er (Isosorbide Mononitrate) 30 Mg Tab.er.24h 30 Mg PO DAILY 30 Days Furosemide 40 Mg Tablet 40 Mg PO DAILY 30 Days Clonazepam 0.5 Mg Tablet 0.5 Mg PO TID PRN 30 Days Humalog (Insulin Lispro) 100 Unit/1 Ml Insuln.pen 10 Units SQ TIDWMEALS 30 Days Lantus Solostar (Insulin Glargine,Hum.rec.anlog) 100 Unit/1 Ml Insuln.pen 7 Units SQ QHS 30 Days Atorvastatin Calcium 40 Mg Tablet 80 Mg PO QHS 30 Days Amlodipine Besylate 5 Mg Tablet 5 Mg PO DAILYWLUN 30 Days Clopidogrel (Clopidogrel Bisulfate) 75 Mg Tablet 75 Mg PO DAILY 30 Days Lisinopril 20 Mg Tablet 1 Tab PO DAILY 30 Days Aspirin Ec (Aspirin) 81 Mg Tablet.dr 81 Mg PO DAILYWBKFT 30 Days Reported Carvedilol 25 Mg Tablet 20 Mg PO BIDWMEALS Vitals/I & O Vital Sign - Last 24 Hours 08/08/18 08/08/18 08/08/18 08/08/18 10:38 10:48 12:00 13:57 Temp 98.6 98.5 98.6 98.5 Pulse 65 65 73 Resp 18 16 B/P (MAP) 175/57 (96) 175/57 145/49 (81) Pulse Ox 100 98 O2 Delivery Room Air Room Air Room Air 08/08/18 08/08/18 08/08/18 08/08/18 13:59 15:04 17:07 19:00 Temp 98.5 98.3 98.5 98.3 Pulse 73 67 67 71 Resp 17 16 B/P (MAP) 145/49 133/46 (75) 144/52 162/47 (85) Pulse Ox 99 96 O2 Delivery Room Air Room Air 08/08/18 08/08/18 08/08/18 08/08/18 20:00 20:46 20:46 23:00 Temp 99.0 99.0 Pulse 68 68 68 Resp 16 B/P (MAP) 152/58 152/58 178/57 (97) Pulse Ox 97 O2 Delivery Room Air Room Air 08/09/18 08/09/18 08/09/18 03:00 07:05 08:00 Temp 98.2 98.1 98.2 98.1 Pulse 65 65 Resp 16 17 B/P (MAP) 148/52 (84) 145/47 (79) Pulse Ox 99 97 O2 Delivery Room Air Room Air Room Air Intake and Output 08/08/18 08/08/18 08/09/18 14:59 22:59 06:59 Intake Total 420 ml 560 ml 200 ml Output Total 0 ml Balance 420 ml 560 ml 200 ml BIJAN STEELE MD Aug 09, 2018 10:10
--- NOTE | 2018-08-09 13:05 | PDOC3 ---
Discharge Summary Date of Admission: Aug 03, 2018 Date of Discharge: Aug 09, 2018 Follow-Up: 1-2 days Admitting Diagnosis comment: DISCHARGE DX Assessment/Plan Assessment/Plan IMPRESSION 1. ESRD ON DIALYSIS 2. NONCOMPLIANCE remains at HIGH RISK OF COMPLICATIONS// due to noncompliance with dialysis 3. HX HTN 4. OBESITY 5. ACUTE VOLUME OVERLOAD, RESOLVED 6. ANEMIA 7. Minimal bibasilar lung airspace opacities likely atelectasis or infiltrates.. 8. uncontrolled hypertension SEC TO NONCOMPLIANCE PLAN Replacement of right internal jugular tunnel dialysis catheter 08/04 iv hydralazine 10mg q 4 hrs prn bp support tele BED ADMIT DIALYSIS emergent 08/03 CONSULT NEPHROLOGY HOME MEDS ISLAM SHINTO NO BLOOD PRODUCTS LOWER K EMERGENTLY DR MATIAS following NEW TUNNELED CATHETER 08/07 HD AFTER NEW CATHETER THEN OK TO D/C 34 min pt exam, D/C PLANNING TIME chart review, > 50% of time spent with exam, chart review, pt care coordination Vitals Vitals Vital Signs Date Time Temp Pulse Resp B/P (MAP) Pulse Ox O2 Delivery O2 Flow Rate FiO2 08/09/18 08:00 Room Air 08/09/18 07:05 98.1 65 17 145/47 (79) 97 98.1 Physical Exam General: Alert, Oriented X3, Cooperative, No acute distress Heart: Regular rate, Normal S1 Lungs: Clear, Crackles, Other Abdomen: Normal bowel sounds, Soft, No tenderness Extremities: No clubbing, No cyanosis, No edema Skin: No significant lesion FINAL DIAGNOSIS Problems Medical Problems: (1) Hyperkalemia Status: Acute (2) Hypermagnesemia Status: Acute (3) Hyperphosphatemia Status: Acute (4) Hypertensive urgency Status: Acute (5) Missed dialysis Status: Acute (6) Problem with dialysis access Status: Acute (7) Uncontrolled diabetes mellitus Status: Acute Brief Hospital Course Ms. Varela is a 63 old [sex] who presented with [ MALIGNANT HTN] CONDITION AT DISCHARGE: Improved Discharge Medications Current Medications Clonidine HCl (Catapres) 0.1 mg 1X ONCE PO Last administered on 08/03/18at 16: 50; Start 08/03/18 at 16:15; Stop 08/03/18 at 16:16; Status DC Albuterol Sulfate (Ventolin Neb Soln) 10 mg 1X ONCE CONT NEB Last administered on 08/03/18at 17:32; Start 08/03/18 at 17:15; Stop 08/03/18 at 17:18 ; Status DC Dextrose (Dextrose 50%-Water Syringe) 25 gm 1X ONCE IV Last administered on 03/13at 17:41; Start 08/03/18 at 17:15; Stop 08/03/18 at 17:18; Status DC Insulin Human Regular (HumuLIN R VIAL) 10 unit 1X ONCE IV Last administered on 08/03/18at 17:45; Start 08/03/18 at 17:15; Stop 08/03/18 at 17:18; Status DC Sodium Bicarbonate (Sodium Bicarb Adult 8.4% Syr) 50 meq 1X ONCE IV Last administered on 08/03/18at 17:46; Start 08/03/18 at 17:15; Stop 08/03/18 at 17:18 ; Status DC Sodium Chloride 1,000 ml @ 1,000 mls/hr Q1H PRN IV hypotension; Start 08/03/18 at 20:00; Stop 08/04/18 at 06:00; Status DC Albumin Human 200 ml @ 200 mls/hr 1X PRN PRN IV Hypotension; Start 08/03/18 at 20:00; Stop 08/04/18 at 06:00; Status DC Sodium Chloride (Normal Saline Flush) 10 ml 1X PRN PRN IV AP catheter pack; Start 08/03/18 at 19:45; Stop 08/04/18 at 06:00; Status DC Sodium Chloride (Normal Saline Flush) 10 ml 1X PRN PRN IV REAL TIME ANALYST catheter pack; Start 08/03/18 at 19:45; Stop 08/04/18 at 06:00; Status DC Sodium Chloride 1,000 ml @ 400 mls/hr Q2H30M PRN IV PATENCY; Start 08/03/18 at 20:00; Stop 08/04/18 at 06:00; Status DC Info (PHARMACY MONITORING -- do not chart) 1 each PRN DAILY PRN MC SEE COMMENTS ; Start 08/03/18 at 19:45 Info (PHARMACY MONITORING -- do not chart) 1 each PRN DAILY PRN MC SEE COMMENTS ; Start 08/03/18 at 19:45; Status UNV Alteplase, Recombinant (Cathflo For Central Catheter Clearance) 2 mg 1X ONCE INT CAT Last administered on 08/04/18at 08:50; Start 08/04/18 at 08:15; Stop 04/12 at 08:16; Status DC Sodium Chloride 1,000 ml @ 1,000 mls/hr Q1H PRN IV hypotension; Start 08/04/18 at 10:05; Stop 08/04/18 at 16:30; Status DC Sodium Chloride 1,000 ml @ 400 mls/hr Q2H30M PRN IV PATENCY; Start 08/04/18 at 10:05; Stop 08/04/18 at 16:30; Status DC Info (PHARMACY MONITORING -- do not chart) 1 each PRN DAILY PRN MC SEE COMMENTS ; Start 08/04/18 at 10:15; Status UNV Info (PHARMACY MONITORING -- do not chart) 1 each PRN DAILY PRN MC SEE COMMENTS ; Start 08/04/18 at 10:15; Status UNV Lidocaine/ Epinephrine (LIDOCAINE 1%-EPI 1:100,000 Multi-Dose) 20 ml STK-MED ONCE .ROUTE ; Start 08/04/18 at 14:53; Stop 08/04/18 at 14:54; Status DC Midazolam HCl (Versed) 2 mg STK-MED ONCE .ROUTE ; Start 08/04/18 at 15:42; Stop 08/04/18 at 15:43; Status DC Fentanyl Citrate (Fentanyl 2ml Vial) 100 mcg STK-MED ONCE .ROUTE ; Start at 15:42; Stop 08/04/18 at 15:43; Status DC Cefazolin Sodium/ Dextrose 50 ml @ As Directed STK-MED ONCE IV ; Start 08/04/18 at 15:42; Stop 08/04/18 at 15:43; Status DC Cefazolin Sodium/ Dextrose 50 ml @ 100 mls/hr 1X ONCE IV Last administered on 08/04/18at 16:09; Start 08/04/18 at 16:15; Stop 08/04/18 at 16:44; Status DC Midazolam HCl (Versed) 2 mg 1X ONCE IV Last administered on 08/04/18at 16:11; Start 08/04/18 at 16:15; Stop 08/04/18 at 16:16; Status DC Fentanyl Citrate (Fentanyl 2ml Vial) 100 mcg 1X ONCE IV Last administered on at 16:12; Start 08/04/18 at 16:15; Stop 08/04/18 at 16:16; Status DC Lidocaine/ Epinephrine (LIDOCAINE 1%-EPI 1:100,000 Multi-Dose) 20 ml 1X ONCE IJ Last administered on 08/04/18at 16:10; Start 08/04/18 at 16:15; Stop at 16:16; Status DC Hydralazine HCl (Apresoline Inj) 10 mg 1X ONCE IVP Last administered on at 11:27; Start 08/05/18 at 11:15; Stop 08/05/18 at 11:16; Status DC Insulin Human Lispro (HumaLOG) 10 units TIDWMEALS SQ ; Start 08/05/18 at 12:00; Stop 08/05/18 at 12:00; Status DC Insulin Human Lispro (HumaLOG) 5 units STAT SQ ; Start 08/05/18 at 11:45; Stop 08/05/18 at 16:41; Status DC Darbepoetin Malick (Aranesp) 60 mcg WEEKLYHS SQ Last administered on 08/06/18at 23 :05; Start 08/06/18 at 21:00 Insulin Human Lispro (HumaLOG) 0-9 UNITS TIDWMEALS SQ Last administered on 08/08at 12:01; Start 08/06/18 at 23:00 Dextrose (Dextrose 50%-Water Syringe) 12.5 gm PRN Q15MIN PRN IV SEE COMMENTS; Start 08/06/18 at 23:00 Sodium Chloride 1,000 ml @ 1,000 mls/hr Q1H PRN IV hypotension; Start 08/07/18 at 14:13; Stop 08/07/18 at 20:12; Status DC Diphenhydramine HCl (Benadryl) 25 mg 1X PRN PRN IV ITCHING; Start 08/07/18 at 14:15; Stop 08/08/18 at 14:14; Status DC Diphenhydramine HCl (Benadryl) 25 mg 1X PRN PRN IV ITCHING; Start 08/07/18 at 14:15; Stop 08/08/18 at 14:14; Status DC Sodium Chloride 1,000 ml @ 400 mls/hr Q2H30M PRN IV PATENCY; Start 08/07/18 at 14:13; Stop 08/08/18 at 02:12; Status DC Info (PHARMACY MONITORING -- do not chart) 1 each PRN DAILY PRN MC SEE COMMENTS ; Start 08/07/18 at 14:15; Status UNV Amlodipine Besylate (Norvasc) 5 mg DAILYWLUN PO Last administered on 08/08/18 12:00; Start 08/08/18 at 12:00; Stop 08/08/18 at 12:14; Status DC Aspirin (Ecotrin) 81 mg DAILYWBKFT PO Last administered on 08/08/18 08:40; Start 08/08/18 at 08:00 Atorvastatin Calcium (Lipitor) 80 mg QHS PO Last administered on 08/08/18 20: 45; Start 08/07/18 at 21:00 Clonazepam (KlonoPIN) 0.5 mg PRN TID PRN PO ANXIETY / AGITATION; Start at 18:30 Clopidogrel Bisulfate (Plavix) 75 mg DAILY PO Last administered on 08/08/18at 08 :37; Start 08/08/18 at 09:00 Furosemide (Lasix) 40 mg DAILY PO Last administered on 08/08/18 08:40; Start 08/08/18 at 09:00 Insulin Glargine (Lantus) 7 units QHS SQ Last administered on 08/08/18 20:52; Start 08/07/18 at 21:00 Isosorbide Mononitrate (Imdur) 30 mg DAILY PO Last administered on 08/08/18 08 :40; Start 08/08/18 at 09:00 Lisinopril (Prinivil) 20 mg DAILY PO Last administered on 08/08/18 08:40; Start 08/08/18 at 09:00 Carvedilol (Coreg) 25 mg BIDWMEALS PO Last administered on 08/08/18 17:07; Start 08/07/18 at 21:00 Amlodipine Besylate (Norvasc) 5 mg BID PO Last administered on 08/08/18 20:46 ; Start 08/08/18 at 21:00 Hydralazine HCl (Apresoline) 50 mg TID PO Last administered on 4/16/19at 20:46 ; Start 08/08/18 at 14:00 Sodium Chloride 1,000 ml @ 1,000 mls/hr Q1H PRN IV hypotension; Start 08/09/18 at 07:48; Stop 08/09/18 at 13:47 Albumin Human 200 ml @ 200 mls/hr 1X PRN PRN IV Hypotension; Start 08/09/18 at 08:00; Stop 08/09/18 at 13:59 Sodium Chloride 1,000 ml @ 400 mls/hr Q2H30M PRN IV PATENCY; Start 08/09/18 at 07:48; Stop 08/09/18 at 19:47 Info (PHARMACY MONITORING -- do not chart) 1 each PRN DAILY PRN MC SEE COMMENTS ; Start 08/09/18 at 08:00; Status UNV Info (PHARMACY MONITORING -- do not chart) 1 each PRN DAILY PRN MC SEE COMMENTS ; Start 08/09/18 at 08:00; Status UNV Active Scripts Active Isosorbide Mononitrate Er (Isosorbide Mononitrate) 30 Mg Tab.er.24h 30 Mg PO DAILY 30 Days Furosemide 40 Mg Tablet 40 Mg PO DAILY 30 Days Clonazepam 0.5 Mg Tablet 0.5 Mg PO TID PRN 30 Days Humalog (Insulin Lispro) 100 Unit/1 Ml Insuln.pen 10 Units SQ TIDWMEALS 30 Days Lantus Solostar (Insulin Glargine,Hum.rec.anlog) 100 Unit/1 Ml Insuln.pen 7 Units SQ QHS 30 Days Atorvastatin Calcium 40 Mg Tablet 80 Mg PO QHS 30 Days Amlodipine Besylate 5 Mg Tablet 5 Mg PO DAILYWLUN 30 Days Clopidogrel (Clopidogrel Bisulfate) 75 Mg Tablet 75 Mg PO DAILY 30 Days Lisinopril 20 Mg Tablet 1 Tab PO DAILY 30 Days Aspirin Ec (Aspirin) 81 Mg Tablet.dr 81 Mg PO DAILYWBKFT 30 Days Reported Carvedilol 25 Mg Tablet 20 Mg PO BIDWMEALS Vital Signs Vital Signs Date Time Temp Pulse Resp B/P (MAP) Pulse Ox O2 Delivery O2 Flow Rate FiO2 08/09/18 08:00 Room Air 08/09/18 07:05 98.1 65 17 145/47 (79) 97 98.1 Labs Laboratory Tests Test 08/07/18 18:42 08/07/18 20:04 08/08/18 07:00 08/08/18 11:34 Glucose (Fingerstick) 102 mg/dL (70-99) 293 mg/dL (70-99) 138 mg/dL (70-99) 272 mg/dL (70-99) Test 08/08/18 13:15 08/08/18 16:52 08/08/18 20:21 08/09/18 07:03 Sodium Level 135 mmol/L (136-145) Potassium Level 4.8 mmol/L (3.5-5.1) Chloride Level 98 mmol/L (98-107) Carbon Dioxide Level 27 mmol/L (21-32) Anion Gap 10 (6-14) Blood Urea Nitrogen 32 mg/dL (7-20) Creatinine 6.3 mg/dL (0.6-1.0) Estimated GFR (Cockcroft-Gault) 6.7 Glucose Level 240 mg/dL (70-99) Calcium Level 7.7 mg/dL (8.5-10.1) Phosphorus Level 5.9 mg/dL (2.6-4.7) Albumin 2.9 g/dL (3.4-5.0) Glucose (Fingerstick) 121 mg/dL (70-99) 273 mg/dL (70-99) 156 mg/dL (70-99) Laboratory Tests Test 08/08/18 13:15 08/08/18 16:52 08/08/18 20:21 08/09/18 07:03 Sodium Level 135 mmol/L (136-145) Potassium Level 4.8 mmol/L (3.5-5.1) Chloride Level 98 mmol/L (98-107) Carbon Dioxide Level 27 mmol/L (21-32) Anion Gap 10 (6-14) Blood Urea Nitrogen 32 mg/dL (7-20) Creatinine 6.3 mg/dL (0.6-1.0) Estimated GFR (Cockcroft-Gault) 6.7 Glucose Level 240 mg/dL (70-99) Calcium Level 7.7 mg/dL (8.5-10.1) Phosphorus Level 5.9 mg/dL (2.6-4.7) Albumin 2.9 g/dL (3.4-5.0) Glucose (Fingerstick) 121 mg/dL (70-99) 273 mg/dL (70-99) 156 mg/dL (70-99) Allergies Allergies Coded Allergies Type Severity Reaction Last Updated Verified No Known Drug Allergies 11/28/17 No Disposition/Orders: D/C to Home BIJAN STEELE MD Aug 09, 2018 13:05
[2018-08-09] MEDS ORDERED: HYDR-2869 PO (13:08)
[2018-08-09] MEDS: CLOPIDOGREL BISULFATE 75 MG TABLET PO SCH (13:11)
--- NOTE | 2018-08-09 13:11 | DISCH ---
DISCHARGE INSTRUCTIONS Condition on Discharge Condition on Discharge: Guarded Activity After Discharge Activity Instructions for Disc: Activity as tolerated Lifting Instructions after Dis: No heavy lifting, No pulling or pushing, Do not lift >10 pounds Exercise Instruction after Dis: Walk 10 min, 3 x per day, Progress as tolerated Driving Instructions after Dis: Do not drive Weight Bearing Status after Di: No restrictions Diet after Discharge Diet after Discharge: Renal Dialysis, Diabetic No Calorie Level Diet Texture: Regular Liquid Texture: Thin Liquid Swallowing Supervision: None needed Wound Incision Care Wound/Incision Care: May get incision wet, No wound care needed Checks after Discharge Checks after discharge: Check blood press - daily, Check blood sugar, ac/hs, Weigh Yourself Daily Contacting the DR. after DC Call your doctor for: If your condition worsens Treatment/Equipment after DC Adaptive Equipment Issued: None Warfarin Follow-Up Warfarin Follow UP: SEE PCP TOMORROW BIJAN STEELE MD Aug 09, 2018 13:11
[2018-08-09] MEDS: ISOSORBIDE MONONITRATE ER 30 MG TAB.ER.24H PO SCH (13:12)
[2018-08-09] MEDS: CARVEDILOL 12.5 MG TABLET. PO SCH (13:13)
[2018-08-09] MEDS: ASPIRIN ENTERIC COATED 81 MG TABLET.DR. PO SCH (13:14)
[2018-08-09] MEDS: FUROSEMIDE 40 MG TABLET. PO SCH (13:15)
[2018-08-09] MEDS: amLODIPine BESYLATE 5 MG TABLET PO SCH (13:16)
[2018-08-09 13:17] VITALS: BP 175/87
[2018-08-09] MEDS: LISINOPRIL 20 MG TABLET PO SCH (13:17)
--- NOTE | 2018-08-09 15:27 | NUR ---
Discharge Note: ADELA [facility] Discharge instructions and discharge home medications reviewed with Family Member and a copy given. All questions have been answered and understanding verbalized. The following instructions and handouts were given: Discharge Instructions, F/U with PCP, Teaching materials for Dialysis, Heart Failure Discontinued lines and drains: Peripheral IV removed, Catheter intact. Patient discharged to Home via Private Vehicle
--- NOTE | 2018-08-09 15:54 | PDOC ---
SUBJECTIVE ROS Stable OBJECTIVE Vital Signs Vital Signs Date Time Temp Pulse Resp B/P (MAP) Pulse Ox O2 Delivery O2 Flow Rate FiO2 08/09/18 13:17 65 175/87 08/09/18 08:00 Room Air 08/09/18 07:05 98.1 17 97 98.1 I & 0 Intake and Output 08/09/18 06:59 Intake Total 1180 ml Output Total 0 ml Balance 1180 ml Intake Oral 1180 ml Output Urine Total 0 ml PHYSICAL EXAM Physical Exam GEN: NAD HEEN: OM moist NECK: Supple CVS: RRR RESP: CTA Bilat, No Acc. 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 Access - Perm-a-cath replaced on 08/04 HTN- Improved Post HD Continue Antihypertensives DM COMMENT/RELEVANT DATA Meds Current Medications Medications (Trade) Dose Ordered Sig/[place] Start Time Stop Time Status Last Admin Dose Admin Albumin Human 200 ml @ 200 mls/hr 1X PRN PRN 08/09/18 08:00 08/09/18 13:59 DC Albuterol Sulfate (Ventolin Neb Soln) 10 mg 1X ONCE 08/03/18 17:15 08/03/18 17:18 DC 08/03/18 17:32 10 MG Alteplase, Recombinant (Cathflo For Central Catheter Clearance) 2 mg 1X ONCE 08/04/18 08:15 08/04/18 08:16 DC 08/04/18 08:50 2 MG Amlodipine Besylate (Norvasc) 5 mg BID 08/08/18 21:00 08/09/18 14:49 DC 08/09/18 13:16 5 MG Aspirin (Ecotrin) 81 mg DAILYWBKFT 08/08/18 08:00 08/09/18 14:49 DC 08/09/18 13:14 81 MG Atorvastatin Calcium (Lipitor) 80 mg QHS 08/07/18 21:00 08/09/18 14:49 DC 08/08/18 20:45 80 MG Carvedilol (Coreg) 25 mg BIDWMEALS 08/07/18 21:00 08/09/18 14:49 DC 08/09/18 13:13 25 MG Cefazolin Sodium/ Dextrose 50 ml @ 100 mls/hr 1X ONCE 08/04/18 16:15 08/04/18 16:44 DC 08/04/18 16:09 100 MLS/HR Clonazepam (KlonoPIN) 0.5 mg PRN TID PRN 08/07/18 18:30 08/09/18 14:49 DC Clonidine HCl (Catapres) 0.1 mg 1X ONCE 08/03/18 16:15 08/03/18 16:16 DC 08/03/18 16:50 0.1 MG Clopidogrel Bisulfate (Plavix) 75 mg DAILY 08/08/18 09:00 08/09/18 14:49 DC 08/09/18 13:11 75 MG Darbepoetin Malick (Aranesp) 60 mcg WEEKLYHS 08/06/18 21:00 08/09/18 14:49 DC 08/06/18 23:05 60 MCG Dextrose (Dextrose 50%-Water Syringe) 12.5 gm PRN Q15MIN PRN 08/06/18 23:00 08/09/18 14:49 DC Diphenhydramine HCl (Benadryl) 25 mg 1X PRN PRN 08/07/18 14:15 08/08/18 14:14 DC Fentanyl Citrate (Fentanyl 2ml Vial) 100 mcg 1X ONCE 08/04/18 16:15 08/04/18 16:16 DC 08/04/18 16:12 50 MCG Furosemide (Lasix) 40 mg DAILY 08/08/18 09:00 08/09/18 14:49 DC 08/09/18 13:15 40 MG Hydralazine HCl (Apresoline Inj) 10 mg 1X ONCE 08/05/18 11:15 08/05/18 11:16 DC 08/05/18 11:27 10 MG Hydralazine HCl (Apresoline) 50 mg TID 08/08/18 14:00 08/09/18 14:49 DC 08/09/18 13:16 50 MG Info (PHARMACY MONITORING -- do not chart) 1 each PRN DAILY PRN 08/09/18 08:00 UNV Insulin Glargine (Lantus) 7 units QHS 08/07/18 21:00 08/09/18 14:49 DC 08/08/18 20:52 7 UNITS Insulin Human Lispro (HumaLOG) 0-9 UNITS TIDWMEALS 08/06/18 23:00 08/09/18 14:49 DC 08/08/18 12:01 7 UNITS Insulin Human Regular (HumuLIN R VIAL) 10 unit 1X ONCE 08/03/18 17:15 08/03/18 17:18 DC 08/03/18 17:45 10 UNIT Isosorbide Mononitrate (Imdur) 30 mg DAILY 08/08/18 09:00 08/09/18 14:49 DC 08/09/18 13:12 30 MG Lidocaine/ Epinephrine (LIDOCAINE 1%-EPI 1:100,000 Multi-Dose) 20 ml 1X ONCE 08/04/18 16:15 08/04/18 16:16 DC 08/04/18 16:10 5 ML Lisinopril (Prinivil) 20 mg DAILY 08/08/18 09:00 08/09/18 14:49 DC 08/09/18 13:17 20 MG Midazolam HCl (Versed) 2 mg 1X ONCE 08/04/18 16:15 08/04/18 16:16 DC 08/04/18 16:11 1 MG Sodium Bicarbonate (Sodium Bicarb Adult 8.4% Syr) 50 meq 1X ONCE 08/03/18 17:15 08/03/18 17:18 DC 08/03/18 17:46 50 MEQ Sodium Chloride 1,000 ml @ 400 mls/hr Q2H30M PRN 08/09/18 07:48 08/09/18 14:49 DC Sodium Chloride (Normal Saline Flush) 10 ml 1X PRN PRN 08/03/18 19:45 08/04/18 06:00 DC Lab Laboratory Tests Test 08/08/18 16:52 08/08/18 20:21 08/09/18 07:03 Glucose (Fingerstick) 121 mg/dL (70-99) 273 mg/dL (70-99) 156 mg/dL (70-99) Results All relevant outside records, renal labs, imaging studies, telemetry/EKG's were reviewed. JAIMEE MATIAS MD Aug 09, 2018 15:54
== END 2018-08-09 14:30 | disposition home or self-care (01) | DRG 314 ==
LOC: ER 15:36 → 6 SOUTH 16:14
PROVIDERS: ADMIT Family Medicine; ATTEND Family Medicine
PROC: 5A1D70Z Performance of Urinary Filtration, Intermittent, Less than 6 Hours Per Day (ICD-10-PCS; 2018-08-03)
PROC: 0J2TXYZ Change Other Device in Trunk Subcutaneous Tissue and Fascia, External Approach (ICD-10-PCS; principal; 2018-08-04)
PROC: 5A1D70Z Performance of Urinary Filtration, Intermittent, Less than 6 Hours Per Day (ICD-10-PCS; 2018-08-04)
PROC: 5A1D70Z Performance of Urinary Filtration, Intermittent, Less than 6 Hours Per Day (ICD-10-PCS; 2018-08-07)
PROC: 5A1D70Z Performance of Urinary Filtration, Intermittent, Less than 6 Hours Per Day (ICD-10-PCS; 2018-08-09)
DX: T82.49XA Other complication of vascular dialysis catheter, initial encounter (principal); N18.6 End stage renal disease; I13.2 Hypertensive heart and chronic kidney disease with heart failure and with stage 5 chronic kidney disease, or end stage renal disease; E87.5 Hyperkalemia; E11.22 Type 2 diabetes mellitus with diabetic chronic kidney disease; I50.9 Heart failure, unspecified; E83.41 Hypermagnesemia; E83.39 Other disorders of phosphorus metabolism; I16.0 Hypertensive urgency; I25.10 Atherosclerotic heart disease of native coronary artery without angina pectoris; E78.5 Hyperlipidemia, unspecified; E78.00 Pure hypercholesterolemia, unspecified; I25.2 Old myocardial infarction; L40.9 Psoriasis, unspecified; K21.9 Gastro-esophageal reflux disease without esophagitis; E66.9 Obesity, unspecified; D64.9 Anemia, unspecified; Y83.8 Other surgical procedures as the cause of abnormal reaction of the patient, or of later complication, without mention of misadventure at the time of the procedure; Z99.2 Dependence on renal dialysis; Z91.19 Patient's noncompliance with other medical treatment and regimen; Z91.15 Patient's noncompliance with renal dialysis; Z82.49 Family history of ischemic heart disease and other diseases of the circulatory system; Z68.30 Body mass index [BMI] 30.0-30.9, adult; Y92.89 Other specified places as the place of occurrence of the external cause
CPT/HCPCS: 36415; 36581; 71046; 77001; 80048; 80053; 80069; 82962; 83735; 84100; 85025; 85027; 85610; 85730; 93005; 94640; 96374; 96375; 99152; 99153; 99291; C1750; C1769; J0360; J0696; J0881; J1815; J2250; J3010; J3490; J7042; J7613

== ENCOUNTER → 2020-03-14 | Outpatient (CLI) | payer MEDICARE, OTHER ==
[2020-02-04 17:38] VITALS: BP 151/73
[~2020-03-14] MED LIST changes: +ALBU2.5V8 INH; +AMLO-186 PO; +AMLO-187 PO; -AMLO5TAB10 PO; -ASPI-612 PO; +ASPI-886 PO; +CALC667T4 PO; +CLON-77 PO; -CLON0.5T11 PO; +INSU100C4 SQ; +LISI-130 PO
== END ==
LOC: LAB 18:39
PROVIDERS: ATTEND Internal Medicine Nephrology
DX: N18.6 End stage renal disease (principal); E87.5 Hyperkalemia
CPT/HCPCS: 36415; 84132

== ENCOUNTER 2020-05-23 15:37 | Inpatient (IN) | payer OTHER ==
[~2020-05-23] VITALS: Ht 162.6 cm; Wt 90.0 kg
[~2020-05-23 15:37] MED LIST changes: -ISOS30TA4 PO; +ISOS30TA68 PO; -LISI-334 PO; +LISI20TA18 PO
--- NOTE | 2020-05-23 16:15 | RAD ---
Single view of the chest. 05/23/2020 3:49 PM Indication: Reason: chest pain / Spl. Instructions: / History: Comparison: Chest radiograph November 03, 2018 Findings: There is a right internal jugular tunnel dialysis catheter with tip in the appropriate posi tion. Heart is mildly enlarged but similar to comparison study. No pneumothorax or pleural effusion i s seen. Minimal left basilar scarring or atelectasis is present, but similar to comparison study. No acute osseous changes are identified. IMPRESSION: Grossly stable radiographic appearance of the chest without evidence of acute cardiopulmo nary process Electronically signed by: Justino Ge MD (05/23/2020 4:13 PM) [id number]
--- NOTE | 2020-05-23 16:18 | PHYS DOC ---
Past Medical History Past Medical History: CHF, Diabetes-Type II, High Cholesterol, Hypertension, ND, Pneumonia, Renal Disease, Renal Failure, Other Additional Past Medical Histor: PSORASIS,N-STEMI,ESRD,URETER STENT Past Surgical History: Angioplasty, Other Additional Past Surgical Histo: 2L fluid removed from lungs,CARDIAC CATH/STENTS,DIALYSIS CATH R CHEST Smoking Status: Never Smoker Alcohol Use: None Drug Use: None General Adult EDM: Chief Complaint: CHEST PAIN HPI: HPI: 65 yo F PMH ESRD (MWF-last HD M), HTN, DM, obesity, CAD w/JULIEN on plavix and HLD, presents the ED with complaints of midsternal intermittent waxing and waning chest pain described as a dull ache, nonradiating with associated nausea, dyspnea and orthopnea, worse at night for the past 3 days. Some relief with Tylenol, has not prescribed nitroglycerin. Patient states she had surgery with Dr. Jernigan for left upper extremity fistula on Tuesday. Had multiple episodes of nausea and vomiting after surgery and missed dialysis Tuesday because she had not eaten anything and her left arm was hurting. C/o not sleeping for the past 3 days because of her cp. Has no active cp in the ed. No h/o DVT/PEs. Reports her blood systolic blood pressure is usually just under 200. EMR was reviewed and last cardiac cath was in 2016 with stent placed in RCA. 2019 echo w/50-55% ef. Follows with Dr. Huynh for cardiology. 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 Rosa. Review of Systems: Review of Systems: Constitutional: Denies fever or chills. [] Eyes: Denies change in visual acuity. [] HENT: Denies nasal congestion or sore throat. [] Respiratory: Denies cough or hemoptysis Cardiovascular: Denies syncope or edema GI: Denies abdominal pain, bloody stools or diarrhea. [] : Denies dysuria or hematuria Musculoskeletal: Denies back pain or joint pain. [] Integument: Denies rash or diaphoresis Neurologic: Denies headache, neck stiffness, focal weakness or sensory change s. [] Endocrine: Denies polyuria or polydipsia. [] Lymphatic: Denies swollen glands. [] Psychiatric: Denies depression or anxiety. [] Heart Score: HEART Score for Chest Pain: HEART Score for Chest Pain Response (Comments) Value History Moderately Suspicious 1 ECG Nonspecific Repolarizatio 1 Age >45 - < 65 1 Risk Factors >3 Risk Factors or Hx CAD 2 Troponin < Normal Limit 0 Total 5 Risk Factors: Risk Factors: DM, Current or recent (<one month) smoker, HTN, HLP, family h istory of CAD, obesity. Risk Scores: Score 0 - 3: 2.5% MACE over next 6 weeks - Discharge Home Score 4 - 6: 20.3% MACE over next 6 weeks - Admit for Clinical Observation Score 7 - 10: 72.7% MACE over next 6 weeks - Early Invasive Strategies Allergies: Allergies: Allergies Coded Allergies Type Severity Reaction Last Updated Verified No Known Drug Allergies 11/28/17 No Physical Exam: PE: Constitutional: Well developed, well nourished, no acute distress, non-toxic appearance, hypertensive HENT: Normocephalic, atraumatic, Eyes: EOMI, conjunctiva normal, no discharge. Neck: Normal range of motion, supple, Cardiovascular: S1/2 present, regular rhythm Lungs & Thorax: Speaking in full sentences, bilateral equal chest rise, no tachypnea or increased work of breathing Abdomen: soft, no tenderness, Skin: Warm, dry, no erythema, no rash. [] Back: No tenderness, no CVA tenderness. [] Extremities: No tenderness, no cyanosis, bruising to left upper extremity, normal cap refill less than 1 second to both extremities/fingers Neurologic: Alert and oriented X 3, normal motor function, normal sensory function, no focal deficits noted. [] Psychologic: Affect normal, judgement normal, mood normal. [] Current Patient Data: Vital Signs: Vital Signs Date Time Temp Pulse Resp B/P (MAP) Pulse Ox O2 Delivery O2 Flow Rate FiO2 05/23/20 15:55 98.1 86 18 96 Room Air 98.1 EKG: EKG: nsr 86 bpm, TWI 1 and aVL, [id number], no BRITTNI/STD-no active chest pain in the ED, compared with EKG from July, with no new changes, old T wave inversions Radiology/Procedures: Radiology/Procedures: IMAGING REPORT Signed PATIENT: BOY CLEVELANDCOUNT: [id number] : 1955 LOCATION: ER AGE: 65 SEX: F EXAM STATUS: REG ER ORD. PHYSICIAN: WENDY NAVA DO REASON: chest pain PROCEDURE: PORTABLE CHEST 1V Single view of the chest. 05/23/2020 3:49 PM Indication: Reason: chest pain / Spl. Instructions: / History: Comparison: Chest radiograph November 03, 2018 Findings: There is a right internal jugular tunnel dialysis catheter with tip in the appropriate position. Heart is mildly enlarged but similar to comparison study. No pneumothorax or pleural effusion is seen. Minimal left basilar scarring or atelectasis is present, but similar to comparison study. No acute osseous changes are identified. IMPRESSION: Grossly stable radiographic appearance of the chest without evidence of acute cardiopulmonary process Electronically signed by: Justino Zamarripa MD (05/23/2020 4:13 PM) [id number] DICTATED and SIGNED BY: JUSTINO ZAMARRIPA MD DATE: 05/23/20 [id number] 0 Course & Med Decision Making: Course & Med Decision Making Pertinent Labs and Imaging studies reviewed. (See chart for details) Concern for moderate risk chest pain in the setting of uncontrolled, symptomatic hypertension. EKG with no STEMI, elevated trop w/nstemi. Will admit for further medical management and cardiology consultation. Patient stable at time of admission and agrees with this plan. I have spoken with the patient and/or caregivers. I have explained the patient's condition, diagnosis and treatment plan based on the information available to me at this time. I have answered the patient's and/or caregivers questions and answered any concerns. The patient and/or caregivers have as good an understanding of the patient's diagnosis, condition and treatment plan as can be expected at this point. The patient has been stabilized within the capability of the emergency department. The patient will be transported for further care and management or will be moved to an observation or inpatient service. I have communicated with the staff or medical practitioner taking over this patient's care. Mary Disclaimer: Mary Disclaimer: This electronic medical record was generated, in whole or in part, using a voice recognition dictation system. Departure Departure Impression: Primary Impression: Chest pain Additional Impression: Hypertension with goal of symptom management only Disposition: ADMITTED INPT THIS HOSP Admitting Physician: DARLING Condition: STABLE Referrals: UNKNOWN PCP NAME (PCP) Scripts Lisinopril (LISINOPRIL) 40 Mg Tablet 40 MG PO DAILY for HTN, #30 TAB Prov: MARCO ANTONIO ELISE MD 05/28/20 Labetalol Hcl (LABETALOL HCL) 200 Mg Tablet 400 MG PO BID for HTN, #60 TAB Prov: MARCO ANTONIO ELISE MD 05/28/20 Hydralazine Hcl (HYDRALAZINE HCL) 50 Mg Tablet 50 MG PO TID for HTN, #90 TAB Prov: MARCO ANTONIO ELISE MD 05/28/20 Ondansetron Hcl (ZOFRAN) 4 Mg Tablet 1 TAB PO Q8HRS for Nausea, #10 TAB 0 Refills Prov: MARCO ANTONIO ELISE MD 05/28/20 WENDY NAVA DO May 23, 2020 16:18
[2020-05-23 16:58] LABS: BASO # 0.1 x10^3/uL (0.0-0.2); BASO % 1 % (0-3); EOS # 0.3 x10^3/uL (0.0-0.7); EOS % 4 % (0-3); HEMATOCRIT 25.4 % (36.0-47.0); HEMOGLOBIN 8.8 g/dL (12.0-15.5); LYMPH # 1.3 x10^3/uL (1.0-4.8); LYMPH % 19 % (24-48); MEAN CORPUSCULAR HEMOGLOBIN 35 pg (25-35); MEAN CORPUSCULAR HGB CONC 35 g/dL (31-37); MEAN CORPUSCULAR VOLUME 101 fL (79-100); MONO # 0.7 x10^3/uL (0.0-1.1); MONO % 10 % (0-9); NEUT # 4.7 x10^3/uL (1.8-7.7); NEUT % 66 % (31-73); PLATELET COUNT 267 x10^3/uL (140-400); RED BLOOD COUNT 2.52 x10^6/uL (3.50-5.40); RED CELL DISTRIBUTION WIDTH 12.6 % (11.5-14.5); WHITE BLOOD COUNT 7.1 x10^3/uL (4.0-11.0)
[2020-05-23] MEDS ORDERED: NITROGLYCERIN SUBLINGUAL 0.4 MG BOTTLE OF 25. SL PRN (17:15)
[2020-05-23] MEDS ORDERED: NITROGLYCERIN OINT 1 GM PACKET. TP ONE (17:45)
[2020-05-23 18:18] LABS: CALCIUM 9.3 mg/dL (8.5-10.1); CREATININE 12.4 mg/dL (0.6-1.0); GFR 3.1; POTASSIUM 5.9 mmol/L (3.5-5.1)
[2020-05-23 18:23] LABS: ALBUMIN/GLOBULIN RATIO 0.7 (1.0-1.7); MAGNESIUM 3.1 mg/dL (1.8-2.4); TOTAL BILIRUBIN 0.3 mg/dL (0.2-1.0); TOTAL PROTEIN 7.1 g/dL (6.4-8.2)
[2020-05-23] MEDS ORDERED: 0.9 % SODIUM CHLORIDE 10 ML DISP.SYRIN. IV PRN ×2 (22:15)
[2020-05-23] MEDS ORDERED: ALBUMIN HUMAN 25% 200 ML IV PRN (22:15)
[2020-05-23] MEDS ORDERED: IV NORMAL SALINE 1000ML BAG 1,000 ML IV PRN ×2 (22:15)
[2020-05-23] MEDS ORDERED: DIALYSIS PATIENT. MC PRN ×2 (22:15)
[2020-05-24] VITALS (8 sets, daily range): BP systolic 185–222; BP diastolic 59–116
[2020-05-24] MEDS: ISOSORBIDE MONONITRATE ER 30 MG TAB.ER.24H PO SCH (11:30)
[2020-05-24] MEDS: CLOPIDOGREL BISULFATE 75 MG TABLET PO SCH (11:30)
[2020-05-24] MEDS ORDERED: CARVEDILOL 12.5 MG TABLET. PO SCH (11:30)
[2020-05-24] MEDS: FUROSEMIDE 40 MG TABLET. PO SCH ×2 (11:30→16:00)
[2020-05-24] MEDS: ASPIRIN ENTERIC COATED 81 MG TABLET.DR. PO SCH (11:31)
[2020-05-24] MEDS: CALCIUM ACETATE 667 MG CAPSULE PO SCH ×2 (11:31→17:53)
--- NOTE | 2020-05-24 12:05 | HP ---
ADMIT DATE: 05/23/2020 CHIEF COMPLAINT: Chest pain. HISTORY OF PRESENT ILLNESS: The patient is a pleasant 65-year-old female with multiple comorbidities. She is well known to my service. She basically presented last night with chest pain, rates it at 6/10, has been occurring for several days, worse with moving, better with sitting still. She increased her home meds, but that did not work, described as very irritating. I discussed the case with ER physician. We are admitting the patient with consultation to Cardiology. PAST MEDICAL HISTORY: End-stage renal disease on dialysis, noncompliance, CHF, diabetes, hypertension, hyperlipidemia, pneumonia, psoriasis, angioplasty, thoracentesis, cardiac stents, dialysis catheter placement. ALLERGIES: None. FAMILY HISTORY: Diabetes. SOCIAL HISTORY: She does not drink, smoke or take drugs. MEDICATIONS: Reviewed, please refer to the MRAD. REVIEW OF SYSTEMS: GENERAL: No history of weight change, weakness or fevers. SKIN: No bruising, hair changes or rashes. EYES: No blurred, double or loss of vision. NOSE AND THROAT: No history of nosebleeds, hoarseness or sore throat. HEART: No history of palpitations, chest pain or shortness of breath on exertion. LUNGS: Denies cough, hemoptysis, wheezing or shortness of breath. GASTROINTESTINAL: Denies changes in appetite, nausea, vomiting, diarrhea or constipation. GENITOURINARY: No history of frequency, urgency, hesitancy or nocturia. NEUROLOGIC: Denies history of numbness, tingling, tremor or weakness. PSYCHIATRIC: No history of panic, anxiety or depression. ENDOCRINE: No history of heat or cold intolerance, polyuria or polydipsia. EXTREMITIES: Denies muscle weakness, joint pain, pain on walking or stiffness. PHYSICAL EXAMINATION: VITALS: Within normal limits and are stable. GENERAL: No apparent distress. Alert and oriented. HEENT: Normal cephalic atraumatic, external auditory canals are patent EYES: Extraocular muscles are intact, pupils are equally round and reactive to light and accommodation MUSCULOSKELETAL: Well developed, well nourished, good range of motion ENDOCRINE: No thyromegaly was palpated LYMPHATICS: No cervical chain or axillary nodes were noted HEMATOPOIETIC: No bruising NECK: Supple, no JVD, no thyromegaly was noted. LUNGS: Clear to auscultation in all lung medellin without rhonchi or wheezing. HEART: RRR, S1, S2 present. Peripheral pulses intact, no obvious murmurs were noted. ABDOMEN: Soft, nontender. Positive bowel sounds no organomegaly, normal bowel sounds. EXTREMITIES: She has a left arm fistula that seems to have a good thrill. NEUROLOGIC: Normal speech, normal tone. A & O x3, moves all extremities, no obvious focal deficits. PSYCHIATRIC: Normal affect, normal mood. Stable. SKIN: No ulcerations or rashes, good skin turgor, no jaundice. VASCULAR: Good capillary refill, neurovascular bundle appears to be intact. LABORATORY DATA: White count 7, hemoglobin 8.8, platelets 267. Electrolytes: Sodium 138, potassium 5.9, chloride 102, bicarbonate 21, BUN 90, creatinine 12.4, glucose 150. Troponin 0.09. BNP greater than 35,000. ASSESSMENT AND PLAN: Chest pain and volume overload in a middle-aged female who has end-stage renal disease, on dialysis. Suspect acute on chronic systolic and diastolic heart failure. She also has azotemia, anemia. The patient will be admitted to the cardiac floor. Consult Cardiology, serial enzymes, serial EKGs, consider echocardiogram. Consult Nephrology for dialysis. Home meds, DVT prophylaxis. Full code. Trend labs. PROGNOSIS: Long-term guarded. FINN PEARL DO DR: LUIS A/cris JOB#: [id number] / [id number]
[2020-05-24 12:59] LABS: BASO # 0.1 x10^3/uL (0.0-0.2); BASO % 1 % (0-3); EOS # 0.2 x10^3/uL (0.0-0.7); EOS % 4 % (0-3); HEMATOCRIT 25.5 % (36.0-47.0); HEMOGLOBIN 8.6 g/dL (12.0-15.5); LYMPH # 1.2 x10^3/uL (1.0-4.8); LYMPH % 21 % (24-48); MEAN CORPUSCULAR HEMOGLOBIN 34 pg (25-35); MEAN CORPUSCULAR HGB CONC 34 g/dL (31-37); MEAN CORPUSCULAR VOLUME 101 fL (79-100); MONO # 0.5 x10^3/uL (0.0-1.1); MONO % 8 % (0-9); NEUT # 3.8 x10^3/uL (1.8-7.7); NEUT % 66 % (31-73); PLATELET COUNT 174 x10^3/uL (140-400); RED BLOOD COUNT 2.53 x10^6/uL (3.50-5.40); RED CELL DISTRIBUTION WIDTH 12.3 % (11.5-14.5); WHITE BLOOD COUNT 5.8 x10^3/uL (4.0-11.0)
[2020-05-24 13:15] LABS: CALCIUM 8.5 mg/dL (8.5-10.1); CREATININE 8.1 mg/dL (0.6-1.0); POTASSIUM 4.7 mmol/L (3.5-5.1)
--- NOTE | 2020-05-24 13:27 | PDOC2 ---
CONSULT Date of Consult Date of Consult DATE: 05/24/20 TIME: 13:18 Reason for Consult Reason for Consult: Chest pain Referring Physician Referring Physician: Dr. Mayo Identification/Chief Complaint Chief Complaint Chest pain Source Source: Chart review, Patient History of Present Illness Reason for Visit: 65-year-old female with known history of coronary artery disease s/p PCI/stent to RCA in 2016 and end-stage renal disease on hemodialysis presented with retrosternal chest pain that she described as a dull ache, associated with nausea and worse during the night for the past 3 days. She denied any orthopnea/PND, palpitations or syncope. She apparently had left upper extremity fistula repair by Dr. Jernigan on Tuesday and had multiple episodes of nausea vomiting after the surgery. She apparently missed dialysis on Tuesday because her left arm was hurting and she could not sleep. She stated that she is currently chest pain-free. Past Medical History Cardiovascular: CAD, CHF, HTN, Hyperlipidemia Pulmonary: No pertinent hx, Other CENTRAL NERVOUS SYSTEM: Other GI: GERD Heme/Onc: No pertinent hx Hepatobiliary: No pertinent hx Psych: No pertinent hx Rheumatologic: No pertinent hx Infectious disease: No pertinent hx Renal/: Chronic renal failure Endocrine: Diabetes, Hyperparathyroidism Past Surgical History Past Surgical History: Other Family History Family History: Heart Disease Social History ALCOHOL: none Drugs: None Lives: with Family Current Problem List Problem List Problems Medical Problems: (1) Chest pain Status: Acute (2) Hypertension with goal of symptom management only Status: Acute Current Medications Current Medications Current Medications Nitroglycerin (Nitrostat) 0.4 mg PRN Q5MIN PRN SL CHEST PAIN; Start 05/23/20 at 17:15 Nitroglycerin (Nitro-Bid Oint) 1 inch 1X ONCE TP Last administered on 05/23/20at 18:22; Start 05/23/20 at 17:45; Stop 05/23/20 at 17:46; Status DC Sodium Chloride 1,000 ml @ 1,000 mls/hr Q1H PRN IV hypotension; Start 05/23/20 at 22:15; Stop 05/24/20 at 04:14; Status DC Albumin Human 200 ml @ 200 mls/hr 1X PRN PRN IV Hypotension; Start 05/23/20 at 22:15; Stop 05/24/20 at 04:14; Status DC Sodium Chloride (Normal Saline Flush) 10 ml 1X PRN PRN IV AP catheter pack; Start 05/23/20 at 22:15; Stop 05/24/20 at 22:14 Sodium Chloride (Normal Saline Flush) 10 ml 1X PRN PRN IV EMERGENCY DEPARTMENT DIRECTOR catheter pack; Start 05/23/20 at 22:15; Stop 05/24/20 at 22:14 Sodium Chloride 1,000 ml @ 400 mls/hr Q2H30M PRN IV PATENCY; Start 05/23/20 at 22:15; Stop 05/24/20 at 10:14; Status DC Info (PHARMACY MONITORING -- do not chart) 1 each PRN DAILY PRN MC SEE COMMENTS; Start 05/23/20 at 22:15; Status UNV Info (PHARMACY MONITORING -- do not chart) 1 each PRN DAILY PRN MC SEE COMMENTS; Start 05/23/20 at 22:15 Amlodipine Besylate (Norvasc) 5 mg DAILY PO Last administered on 05/24/20at 07:43; Start 05/24/20 at 09:00; Stop 05/24/20 at 10:57; Status DC Amlodipine Besylate (Norvasc) 5 mg 1X ONCE PO Last administered on 05/24/20at 06:18; Start 05/24/20 at 06:30; Stop 05/24/20 at 06:31; Status DC Amlodipine Besylate (Norvasc) 10 mg DAILY PO ; Start 05/24/20 at 11:30 Aspirin (Ecotrin) 81 mg DAILYWBKFT PO Last administered on 05/24/20at 11:31; Start 05/24/20 at 11:30 Atorvastatin Calcium (Lipitor) 80 mg QHS PO ; Start 05/24/20 at 21:00 Clonazepam (KlonoPIN) 0.5 mg TID PRN PO ANXIETY / AGITATION; Start 05/24/20 at 10:45 Clopidogrel Bisulfate (Plavix) 75 mg DAILY PO Last administered on 05/24/20at 11:30; Start 05/24/20 at 11:30 Furosemide (Lasix) 40 mg BID94 PO Last administered on 05/24/20at 11:30; Start 05/24/20 at 11:30 Isosorbide Mononitrate (Imdur) 30 mg DAILY PO Last administered on 05/24/20at 11:30; Start 05/24/20 at 11:30 Lisinopril (Prinivil) 40 mg BID PO ; Start 05/24/20 at 21:00; Status UNV Calcium Acetate (Phoslo) 2,001 mg TIDWMEALS PO Last administered on 05/24/20at 11:31; Start 05/24/20 at 12:00 Carvedilol (Coreg) 25 mg BIDWMEALS PO Last administered on 05/24/20at 11:31; Start 05/24/20 at 11:30 Active Scripts Active Proair Hfa Inhaler (Albuterol Sulfate) 8.5 Gm Hfa.aer.ad 1 Puff INH PRN Q6HRS PRN 30 Days Furosemide 40 Mg Tablet 40 Mg PO BID 30 Days Carvedilol 25 Mg Tablet 25 Mg PO BIDWMEALS 30 Days Isosorbide Mononitrate Er (Isosorbide Mononitrate) 30 Mg Tab.er.24h 30 Mg PO DAILY 30 Days Atorvastatin Calcium 40 Mg Tablet 80 Mg PO QHS 30 Days Can replace with 80mg Tabs #30 per month Clopidogrel (Clopidogrel Bisulfate) 75 Mg Tablet 75 Mg PO DAILY 30 Days Aspirin Ec (Aspirin) 81 Mg Tablet.dr 81 Mg PO DAILYWBKFT 30 Days Clonazepam (Clonazepam) 0.5 Mg Tablet 0.5 Mg PO TID PRN 30 Days Reported Calcium Acetate 667 Mg Tablet 3 Tab PO TID 30 Days Lisinopril 40 Mg Tablet 1 Tab PO BID Amlodipine Besylate 10 Mg Tablet 10 Mg PO DAILY Allergies Allergies: Coded Allergies: No Known Drug Allergies (Unverified , 11/28/17) ROS Review of System Full review of systems cannot be obtained since patient does not speak Japanese but this is positive for chest pain, nausea and vomiting and otherwise negative. Physical Exam General: Alert, Oriented X3 HEENT: Atraumatic Lungs: Clear to auscultation Heart: Regular rate Abdomen: Soft, No hepatosplenomegaly Neuro: Normal speech Psych/Mental Status: Mood NL Vitals VITALS Vital Signs Date Time Temp Pulse Resp B/P (MAP) Pulse Ox O2 Delivery O2 Flow Rate FiO2 05/24/20 11:31 75 206/79 05/24/20 07:40 Room Air 05/24/20 07:06 98.3 19 96 98.3 Labs Labs Laboratory Tests Test 05/23/20 16:40 05/23/20 17:30 05/23/20 21:45 05/24/20 11:30 White Blood Count 7.1 x10^3/uL (4.0-11.0) Red Blood Count 2.52 x10^6/uL (3.50-5.40) Hemoglobin 8.8 g/dL (12.0-15.5) Hematocrit 25.4 % (36.0-47.0) Mean Corpuscular Volume 101 fL (79-100) Mean Corpuscular Hemoglobin 35 pg (25-35) Mean Corpuscular Hemoglobin Concent 35 g/dL (31-37) Red Cell Distribution Width 12.6 % (11.5-14.5) Platelet Count 267 x10^3/uL (140-400) Neutrophils (%) (Auto) 66 % (31-73) Lymphocytes (%) (Auto) 19 % (24-48) Monocytes (%) (Auto) 10 % (0-9) Eosinophils (%) (Auto) 4 % (0-3) Basophils (%) (Auto) 1 % (0-3) Neutrophils # (Auto) 4.7 x10^3/uL (1.8-7.7) Lymphocytes # (Auto) 1.3 x10^3/uL (1.0-4.8) Monocytes # (Auto) 0.7 x10^3/uL (0.0-1.1) Eosinophils # (Auto) 0.3 x10^3/uL (0.0-0.7) Basophils # (Auto) 0.1 x10^3/uL (0.0-0.2) Sodium Level 138 mmol/L (136-145) Potassium Level 5.9 mmol/L (3.5-5.1) Chloride Level 102 mmol/L (98-107) Carbon Dioxide Level 21 mmol/L (21-32) Anion Gap 15 (6-14) Blood Urea Nitrogen 90 mg/dL (7-20) Creatinine 12.4 mg/dL (0.6-1.0) Estimated GFR (Cockcroft-Gault) 3.1 BUN/Creatinine Ratio 7 (6-20) Glucose Level 150 mg/dL (70-99) Calcium Level 9.3 mg/dL (8.5-10.1) Magnesium Level 3.1 mg/dL (1.8-2.4) Total Bilirubin 0.3 mg/dL (0.2-1.0) Aspartate Amino Transf (AST/SGOT) 11 U/L (15-37) Alanine Aminotransferase (ALT/SGPT) 8 U/L (14-59) Alkaline Phosphatase 67 U/L (46-116) Troponin I Quantitative 0.092 ng/mL (0.000-0.055) 0.089 ng/mL (0.000-0.055) ZH-Nbs-H-Type Natriuretic Peptide > 16757 pg/mL (0-124) Total Protein 7.1 g/dL (6.4-8.2) Albumin 3.0 g/dL (3.4-5.0) Albumin/Globulin Ratio 0.7 (1.0-1.7) Lipase 124 U/L (73-393) Glucose (Fingerstick) 115 mg/dL (70-99) Test 05/24/20 12:45 White Blood Count 5.8 x10^3/uL (4.0-11.0) Red Blood Count 2.53 x10^6/uL (3.50-5.40) Hemoglobin 8.6 g/dL (12.0-15.5) Hematocrit 25.5 % (36.0-47.0) Mean Corpuscular Volume 101 fL (79-100) Mean Corpuscular Hemoglobin 34 pg (25-35) Mean Corpuscular Hemoglobin Concent 34 g/dL (31-37) Red Cell Distribution Width 12.3 % (11.5-14.5) Platelet Count 174 x10^3/uL (140-400) Neutrophils (%) (Auto) 66 % (31-73) Lymphocytes (%) (Auto) 21 % (24-48) Monocytes (%) (Auto) 8 % (0-9) Eosinophils (%) (Auto) 4 % (0-3) Basophils (%) (Auto) 1 % (0-3) Neutrophils # (Auto) 3.8 x10^3/uL (1.8-7.7) Lymphocytes # (Auto) 1.2 x10^3/uL (1.0-4.8) Monocytes # (Auto) 0.5 x10^3/uL (0.0-1.1) Eosinophils # (Auto) 0.2 x10^3/uL (0.0-0.7) Basophils # (Auto) 0.1 x10^3/uL (0.0-0.2) Sodium Level 137 mmol/L (136-145) Potassium Level 4.7 mmol/L (3.5-5.1) Chloride Level 99 mmol/L (98-107) Carbon Dioxide Level 27 mmol/L (21-32) Anion Gap 11 (6-14) Blood Urea Nitrogen 45 mg/dL (7-20) Creatinine 8.1 mg/dL (0.6-1.0) Estimated GFR (Cockcroft-Gault) 5.0 Glucose Level 178 mg/dL (70-99) Calcium Level 8.5 mg/dL (8.5-10.1) Laboratory Tests Test 05/23/20 16:40 05/23/20 17:30 05/23/20 21:45 05/24/20 11:30 White Blood Count 7.1 x10^3/uL (4.0-11.0) Red Blood Count 2.52 x10^6/uL (3.50-5.40) Hemoglobin 8.8 g/dL (12.0-15.5) Hematocrit 25.4 % (36.0-47.0) Mean Corpuscular Volume 101 fL (79-100) Mean Corpuscular Hemoglobin 35 pg (25-35) Mean Corpuscular Hemoglobin Concent 35 g/dL (31-37) Red Cell Distribution Width 12.6 % (11.5-14.5) Platelet Count 267 x10^3/uL (140-400) Neutrophils (%) (Auto) 66 % (31-73) Lymphocytes (%) (Auto) 19 % (24-48) Monocytes (%) (Auto) 10 % (0-9) Eosinophils (%) (Auto) 4 % (0-3) Basophils (%) (Auto) 1 % (0-3) Neutrophils # (Auto) 4.7 x10^3/uL (1.8-7.7) Lymphocytes # (Auto) 1.3 x10^3/uL (1.0-4.8) Monocytes # (Auto) 0.7 x10^3/uL (0.0-1.1) Eosinophils # (Auto) 0.3 x10^3/uL (0.0-0.7) Basophils # (Auto) 0.1 x10^3/uL (0.0-0.2) Sodium Level 138 mmol/L (136-145) Potassium Level 5.9 mmol/L (3.5-5.1) Chloride Level 102 mmol/L (98-107) Carbon Dioxide Level 21 mmol/L (21-32) Anion Gap 15 (6-14) Blood Urea Nitrogen 90 mg/dL (7-20) Creatinine 12.4 mg/dL (0.6-1.0) Estimated GFR (Cockcroft-Gault) 3.1 BUN/Creatinine Ratio 7 (6-20) Glucose Level 150 mg/dL (70-99) Calcium Level 9.3 mg/dL (8.5-10.1) Magnesium Level 3.1 mg/dL (1.8-2.4) Total Bilirubin 0.3 mg/dL (0.2-1.0) Aspartate Amino Transf (AST/SGOT) 11 U/L (15-37) Alanine Aminotransferase (ALT/SGPT) 8 U/L (14-59) Alkaline Phosphatase 67 U/L (46-116) Troponin I Quantitative 0.092 ng/mL (0.000-0.055) 0.089 ng/mL (0.000-0.055) JC-Okt-Y-Type Natriuretic Peptide > 78508 pg/mL (0-124) Total Protein 7.1 g/dL (6.4-8.2) Albumin 3.0 g/dL (3.4-5.0) Albumin/Globulin Ratio 0.7 (1.0-1.7) Lipase 124 U/L (73-393) Glucose (Fingerstick) 115 mg/dL (70-99) Test 05/24/20 12:45 White Blood Count 5.8 x10^3/uL (4.0-11.0) Red Blood Count 2.53 x10^6/uL (3.50-5.40) Hemoglobin 8.6 g/dL (12.0-15.5) Hematocrit 25.5 % (36.0-47.0) Mean Corpuscular Volume 101 fL (79-100) Mean Corpuscular Hemoglobin 34 pg (25-35) Mean Corpuscular Hemoglobin Concent 34 g/dL (31-37) Red Cell Distribution Width 12.3 % (11.5-14.5) Platelet Count 174 x10^3/uL (140-400) Neutrophils (%) (Auto) 66 % (31-73) Lymphocytes (%) (Auto) 21 % (24-48) Monocytes (%) (Auto) 8 % (0-9) Eosinophils (%) (Auto) 4 % (0-3) Basophils (%) (Auto) 1 % (0-3) Neutrophils # (Auto) 3.8 x10^3/uL (1.8-7.7) Lymphocytes # (Auto) 1.2 x10^3/uL (1.0-4.8) Monocytes # (Auto) 0.5 x10^3/uL (0.0-1.1) Eosinophils # (Auto) 0.2 x10^3/uL (0.0-0.7) Basophils # (Auto) 0.1 x10^3/uL (0.0-0.2) Sodium Level 137 mmol/L (136-145) Potassium Level 4.7 mmol/L (3.5-5.1) Chloride Level 99 mmol/L (98-107) Carbon Dioxide Level 27 mmol/L (21-32) Anion Gap 11 (6-14) Blood Urea Nitrogen 45 mg/dL (7-20) Creatinine 8.1 mg/dL (0.6-1.0) Estimated GFR (Cockcroft-Gault) 5.0 Glucose Level 178 mg/dL (70-99) Calcium Level 8.5 mg/dL (8.5-10.1) Assessment/Plan Assessment/Plan 1. Chest pain with atypical features, most probably GI etiology since this is associated with nausea and worse in the night. Slight troponin elevation probably secondary to demand ischemia/ESRD. She is currently chest pain-free. Patient has known history of coronary artery disease and has undergone PCI/stent placement to RCA in 2016. Her 2D echo in May 2018 showed LVEF 50 to 55%. She would benefit from repeat 2D echo to assess LVEF and Lexiscan nuclear stress test to rule out ischemia. However, these tests could be done as an outpatient. Continue current secondary prevention measures. 2. Accelerated hypertension: Blood pressure significantly elevated. Resume home medication lisinopril and change carvedilol to labetalol 200 mg twice daily for better control. 3. Hyperlipidemia: Continue statin therapy 4. End-stage renal disease: Continue hemodialysis per nephrology team Thank you for your consultation SYDNEY HANNAH MD May 24, 2020 13:27
[2020-05-24] MEDS: LISINOPRIL 20 MG TABLET PO SCH (14:38)
--- NOTE | 2020-05-24 15:41 | PDOC2 ---
CONSULT Date of Consult Date of Consult DATE: 05/24/20 TIME: 15:37 Reason for Consult Reason for Consult: ESRD AND HIGH K Referring Physician Referring Physician: CEDRIC Identification/Chief Complaint Chief Complaint CHEST PAIN Source Source: Chart review, Patient History of Present Illness Reason for Visit: THIS IS A 65 YR OLD WITH CHEST PAIN. HAS KNOWN HX OF CAD AND PTCA AND STENT 4 YEARS AGO. ADMITTED FOR EVALUATION BY CARDIOLOGY. SHE HAS ESRD AND IS ON HD MWF. DID NOT GO TO HER LAST 2 TREATMENTS. ESRD DUE TO DM II AND HTN. HAS HAD A JORDON AV ACCESS PLACED EARLIER THIS WEEK. HAS HAD SOME SURGICAL SITE DISCOMFORT. SHE IS UNDERGOING CARDIOLOGY EVALUATION. HER LABS ARE C/W ESRD. Past Medical History Cardiovascular: CAD, CHF, HTN, Hyperlipidemia Pulmonary: No pertinent hx, Other CENTRAL NERVOUS SYSTEM: Other GI: GERD Heme/Onc: No pertinent hx Hepatobiliary: No pertinent hx Psych: No pertinent hx Rheumatologic: No pertinent hx Infectious disease: No pertinent hx Renal/: Chronic renal failure Endocrine: Diabetes, Hyperparathyroidism Past Surgical History Past Surgical History JORDON AV ACCESS, HX OF RIGHT IJ TDC Past Surgical History: Other Family History Family History: Heart Disease Social History No ALCOHOL: none Drugs: None Lives: with Family Current Problem List Problem List Problems Medical Problems: (1) Chest pain Status: Acute (2) Hypertension with goal of symptom management only Status: Acute Current Medications Current Medications Current Medications Nitroglycerin (Nitrostat) 0.4 mg PRN Q5MIN PRN SL CHEST PAIN; Start 05/23/20 at 17:15 Nitroglycerin (Nitro-Bid Oint) 1 inch 1X ONCE TP Last administered on 05/23/20at 18:22; Start 05/23/20 at 17:45; Stop 05/23/20 at 17:46; Status DC Sodium Chloride 1,000 ml @ 1,000 mls/hr Q1H PRN IV hypotension; Start 05/23/20 at 22:15; Stop 05/24/20 at 04:14; Status DC Albumin Human 200 ml @ 200 mls/hr 1X PRN PRN IV Hypotension; Start 05/23/20 at 22:15; Stop 05/24/20 at 04:14; Status DC Sodium Chloride (Normal Saline Flush) 10 ml 1X PRN PRN IV AP catheter pack; Start 05/23/20 at 22:15; Stop 05/24/20 at 22:14 Sodium Chloride (Normal Saline Flush) 10 ml 1X PRN PRN IV TOP LOADER catheter pack; Start 05/23/20 at 22:15; Stop 05/24/20 at 22:14 Sodium Chloride 1,000 ml @ 400 mls/hr Q2H30M PRN IV PATENCY; Start 05/23/20 at 22:15; Stop 05/24/20 at 10:14; Status DC Info (PHARMACY MONITORING -- do not chart) 1 each PRN DAILY PRN MC SEE COMMENTS; Start 05/23/20 at 22:15; Status UNV Info (PHARMACY MONITORING -- do not chart) 1 each PRN DAILY PRN MC SEE COMMENTS; Start 05/23/20 at 22:15 Amlodipine Besylate (Norvasc) 5 mg DAILY PO Last administered on 05/24/20at 07:43; Start 05/24/20 at 09:00; Stop 05/24/20 at 10:57; Status DC Amlodipine Besylate (Norvasc) 5 mg 1X ONCE PO Last administered on 05/24/20at 06:18; Start 05/24/20 at 06:30; Stop 05/24/20 at 06:31; Status DC Amlodipine Besylate (Norvasc) 10 mg DAILY PO ; Start 05/24/20 at 11:30 Aspirin (Ecotrin) 81 mg DAILYWBKFT PO Last administered on 05/24/20at 11:31; Start 05/24/20 at 11:30 Atorvastatin Calcium (Lipitor) 80 mg QHS PO ; Start 05/24/20 at 21:00 Clonazepam (KlonoPIN) 0.5 mg TID PRN PO ANXIETY / AGITATION; Start 05/24/20 at 10:45 Clopidogrel Bisulfate (Plavix) 75 mg DAILY PO Last administered on 05/24/20at 11:30; Start 05/24/20 at 11:30 Furosemide (Lasix) 40 mg BID94 PO Last administered on 05/24/20at 11:30; Start 05/24/20 at 11:30 Isosorbide Mononitrate (Imdur) 30 mg DAILY PO Last administered on 05/24/20at 11:30; Start 05/24/20 at 11:30 Lisinopril (Prinivil) 40 mg BID PO ; Start 05/24/20 at 21:00; Status UNV Calcium Acetate (Phoslo) 2,001 mg TIDWMEALS PO Last administered on 05/24/20at 11:31; Start 05/24/20 at 12:00 Carvedilol (Coreg) 25 mg BIDWMEALS PO Last administered on 05/24/20at 11:31; Start 05/24/20 at 11:30; Stop 05/24/20 at 13:28; Status DC Labetalol HCl (Trandate) 200 mg BID PO ; Start 05/24/20 at 21:00 Lisinopril (Prinivil) 40 mg DAILY PO Last administered on 05/24/20at 14:38; Start 05/24/20 at 13:30 Active Scripts Active Proair Hfa Inhaler (Albuterol Sulfate) 8.5 Gm Hfa.aer.ad 1 Puff INH PRN Q6HRS PRN 30 Days Furosemide 40 Mg Tablet 40 Mg PO BID 30 Days Carvedilol 25 Mg Tablet 25 Mg PO BIDWMEALS 30 Days Isosorbide Mononitrate Er (Isosorbide Mononitrate) 30 Mg Tab.er.24h 30 Mg PO DAILY 30 Days Atorvastatin Calcium 40 Mg Tablet 80 Mg PO QHS 30 Days Can replace with 80mg Tabs #30 per month Clopidogrel (Clopidogrel Bisulfate) 75 Mg Tablet 75 Mg PO DAILY 30 Days Aspirin Ec (Aspirin) 81 Mg Tablet.dr 81 Mg PO DAILYWBKFT 30 Days Clonazepam (Clonazepam) 0.5 Mg Tablet 0.5 Mg PO TID PRN 30 Days Reported Calcium Acetate 667 Mg Tablet 3 Tab PO TID 30 Days Lisinopril 40 Mg Tablet 1 Tab PO BID Amlodipine Besylate 10 Mg Tablet 10 Mg PO DAILY Allergies Allergies: Coded Allergies: No Known Drug Allergies (Unverified , 11/28/17) ROS General: YES: Fatigue PSYCHOLOGICAL ROS: YES: Anxiety Eyes: Yes Decreased vision HEENT: YES: Heacaches Respiratory: YES: Cough, Shortness of breath Cardiovascular: yes Chest Pain Gastrointestinal: Yes Constipation Genitourinary: YES Other (ANURIA) Musculoskeletal: Yes Muscular Weakness Neurological: Yes Weakness Skin: Yes Dry Skin Physical Exam General: Alert, Oriented X3, Cooperative, No acute distress HEENT: Atraumatic, PERRLA Lungs: Clear to auscultation Heart: Regular rate Abdomen: Normal bowel sounds, Soft, No tenderness Extremities: No cyanosis Neuro: Normal gait, Normal speech, Normal tone Psych/Mental Status: Mental status NL, Mood NL MUSCULOSKELETAL: No joint tenderness, No deformity, No swelling Vitals VITALS Vital Signs Date Time Temp Pulse Resp B/P (MAP) Pulse Ox O2 Delivery O2 Flow Rate FiO2 05/24/20 14:38 88 185/78 05/24/20 14:13 98.0 19 95 Room Air 98.0 Labs Labs Laboratory Tests Test 05/23/20 16:40 05/23/20 17:30 05/23/20 21:45 05/24/20 11:30 White Blood Count 7.1 x10^3/uL (4.0-11.0) Red Blood Count 2.52 x10^6/uL (3.50-5.40) Hemoglobin 8.8 g/dL (12.0-15.5) Hematocrit 25.4 % (36.0-47.0) Mean Corpuscular Volume 101 fL (79-100) Mean Corpuscular Hemoglobin 35 pg (25-35) Mean Corpuscular Hemoglobin Concent 35 g/dL (31-37) Red Cell Distribution Width 12.6 % (11.5-14.5) Platelet Count 267 x10^3/uL (140-400) Neutrophils (%) (Auto) 66 % (31-73) Lymphocytes (%) (Auto) 19 % (24-48) Monocytes (%) (Auto) 10 % (0-9) Eosinophils (%) (Auto) 4 % (0-3) Basophils (%) (Auto) 1 % (0-3) Neutrophils # (Auto) 4.7 x10^3/uL (1.8-7.7) Lymphocytes # (Auto) 1.3 x10^3/uL (1.0-4.8) Monocytes # (Auto) 0.7 x10^3/uL (0.0-1.1) Eosinophils # (Auto) 0.3 x10^3/uL (0.0-0.7) Basophils # (Auto) 0.1 x10^3/uL (0.0-0.2) Sodium Level 138 mmol/L (136-145) Potassium Level 5.9 mmol/L (3.5-5.1) Chloride Level 102 mmol/L (98-107) Carbon Dioxide Level 21 mmol/L (21-32) Anion Gap 15 (6-14) Blood Urea Nitrogen 90 mg/dL (7-20) Creatinine 12.4 mg/dL (0.6-1.0) Estimated GFR (Cockcroft-Gault) 3.1 BUN/Creatinine Ratio 7 (6-20) Glucose Level 150 mg/dL (70-99) Calcium Level 9.3 mg/dL (8.5-10.1) Magnesium Level 3.1 mg/dL (1.8-2.4) Total Bilirubin 0.3 mg/dL (0.2-1.0) Aspartate Amino Transf (AST/SGOT) 11 U/L (15-37) Alanine Aminotransferase (ALT/SGPT) 8 U/L (14-59) Alkaline Phosphatase 67 U/L (46-116) Troponin I Quantitative 0.092 ng/mL (0.000-0.055) 0.089 ng/mL (0.000-0.055) WX-Spr-Q-Type Natriuretic Peptide > 30856 pg/mL (0-124) Total Protein 7.1 g/dL (6.4-8.2) Albumin 3.0 g/dL (3.4-5.0) Albumin/Globulin Ratio 0.7 (1.0-1.7) Lipase 124 U/L (73-393) Glucose (Fingerstick) 115 mg/dL (70-99) Test 05/24/20 12:45 White Blood Count 5.8 x10^3/uL (4.0-11.0) Red Blood Count 2.53 x10^6/uL (3.50-5.40) Hemoglobin 8.6 g/dL (12.0-15.5) Hematocrit 25.5 % (36.0-47.0) Mean Corpuscular Volume 101 fL (79-100) Mean Corpuscular Hemoglobin 34 pg (25-35) Mean Corpuscular Hemoglobin Concent 34 g/dL (31-37) Red Cell Distribution Width 12.3 % (11.5-14.5) Platelet Count 174 x10^3/uL (140-400) Neutrophils (%) (Auto) 66 % (31-73) Lymphocytes (%) (Auto) 21 % (24-48) Monocytes (%) (Auto) 8 % (0-9) Eosinophils (%) (Auto) 4 % (0-3) Basophils (%) (Auto) 1 % (0-3) Neutrophils # (Auto) 3.8 x10^3/uL (1.8-7.7) Lymphocytes # (Auto) 1.2 x10^3/uL (1.0-4.8) Monocytes # (Auto) 0.5 x10^3/uL (0.0-1.1) Eosinophils # (Auto) 0.2 x10^3/uL (0.0-0.7) Basophils # (Auto) 0.1 x10^3/uL (0.0-0.2) Sodium Level 137 mmol/L (136-145) Potassium Level 4.7 mmol/L (3.5-5.1) Chloride Level 99 mmol/L (98-107) Carbon Dioxide Level 27 mmol/L (21-32) Anion Gap 11 (6-14) Blood Urea Nitrogen 45 mg/dL (7-20) Creatinine 8.1 mg/dL (0.6-1.0) Estimated GFR (Cockcroft-Gault) 5.0 Glucose Level 178 mg/dL (70-99) Calcium Level 8.5 mg/dL (8.5-10.1) Laboratory Tests Test 05/23/20 16:40 05/23/20 17:30 05/23/20 21:45 05/24/20 11:30 White Blood Count 7.1 x10^3/uL (4.0-11.0) Red Blood Count 2.52 x10^6/uL (3.50-5.40) Hemoglobin 8.8 g/dL (12.0-15.5) Hematocrit 25.4 % (36.0-47.0) Mean Corpuscular Volume 101 fL (79-100) Mean Corpuscular Hemoglobin 35 pg (25-35) Mean Corpuscular Hemoglobin Concent 35 g/dL (31-37) Red Cell Distribution Width 12.6 % (11.5-14.5) Platelet Count 267 x10^3/uL (140-400) Neutrophils (%) (Auto) 66 % (31-73) Lymphocytes (%) (Auto) 19 % (24-48) Monocytes (%) (Auto) 10 % (0-9) Eosinophils (%) (Auto) 4 % (0-3) Basophils (%) (Auto) 1 % (0-3) Neutrophils # (Auto) 4.7 x10^3/uL (1.8-7.7) Lymphocytes # (Auto) 1.3 x10^3/uL (1.0-4.8) Monocytes # (Auto) 0.7 x10^3/uL (0.0-1.1) Eosinophils # (Auto) 0.3 x10^3/uL (0.0-0.7) Basophils # (Auto) 0.1 x10^3/uL (0.0-0.2) Sodium Level 138 mmol/L (136-145) Potassium Level 5.9 mmol/L (3.5-5.1) Chloride Level 102 mmol/L (98-107) Carbon Dioxide Level 21 mmol/L (21-32) Anion Gap 15 (6-14) Blood Urea Nitrogen 90 mg/dL (7-20) Creatinine 12.4 mg/dL (0.6-1.0) Estimated GFR (Cockcroft-Gault) 3.1 BUN/Creatinine Ratio 7 (6-20) Glucose Level 150 mg/dL (70-99) Calcium Level 9.3 mg/dL (8.5-10.1) Magnesium Level 3.1 mg/dL (1.8-2.4) Total Bilirubin 0.3 mg/dL (0.2-1.0) Aspartate Amino Transf (AST/SGOT) 11 U/L (15-37) Alanine Aminotransferase (ALT/SGPT) 8 U/L (14-59) Alkaline Phosphatase 67 U/L (46-116) Troponin I Quantitative 0.092 ng/mL (0.000-0.055) 0.089 ng/mL (0.000-0.055) GR-[id number]-[id number]-Type Natriuretic Peptide > 15894 pg/mL (0-124) Total Protein 7.1 g/dL (6.4-8.2) Albumin 3.0 g/dL (3.4-5.0) Albumin/Globulin Ratio 0.7 (1.0-1.7) Lipase 124 U/L (73-393) Glucose (Fingerstick) 115 mg/dL (70-99) Test 1/30/21 12:45 White Blood Count 5.8 x10^3/uL (4.0-11.0) Red Blood Count 2.53 x10^6/uL (3.50-5.40) Hemoglobin 8.6 g/dL (12.0-15.5) Hematocrit 25.5 % (36.0-47.0) Mean Corpuscular Volume 101 fL (79-100) Mean Corpuscular Hemoglobin 34 pg (25-35) Mean Corpuscular Hemoglobin Concent 34 g/dL (31-37) Red Cell Distribution Width 12.3 % (11.5-14.5) Platelet Count 174 x10^3/uL (140-400) Neutrophils (%) (Auto) 66 % (31-73) Lymphocytes (%) (Auto) 21 % (24-48) Monocytes (%) (Auto) 8 % (0-9) Eosinophils (%) (Auto) 4 % (0-3) Basophils (%) (Auto) 1 % (0-3) Neutrophils # (Auto) 3.8 x10^3/uL (1.8-7.7) Lymphocytes # (Auto) 1.2 x10^3/uL (1.0-4.8) Monocytes # (Auto) 0.5 x10^3/uL (0.0-1.1) Eosinophils # (Auto) 0.2 x10^3/uL (0.0-0.7) Basophils # (Auto) 0.1 x10^3/uL (0.0-0.2) Sodium Level 137 mmol/L (136-145) Potassium Level 4.7 mmol/L (3.5-5.1) Chloride Level 99 mmol/L (98-107) Carbon Dioxide Level 27 mmol/L (21-32) Anion Gap 11 (6-14) Blood Urea Nitrogen 45 mg/dL (7-20) Creatinine 8.1 mg/dL (0.6-1.0) Estimated GFR (Cockcroft-Gault) 5.0 Glucose Level 178 mg/dL (70-99) Calcium Level 8.5 mg/dL (8.5-10.1) Assessment/Plan Assessment/Plan IMP CHEST PAIN HYPERKALEMIA ANEMIA ESRD DM II HTN PLAN HD MWF COLLEEN WHEN NEEDED ENC COMPLIANCE CARDIOLOGY EVAL AND TX WILL FOLLOW ЕЛЕНА MANZANO MD May 24, 2020 15:41
[2020-05-24] MEDS: LABETALOL HCL 200 MG TABLET PO SCH (19:54)
[2020-05-24] MEDS: ATORVASTATIN CALCIUM 40 MG TABLET. PO SCH (19:54)
[2020-05-24] MEDS ORDERED: LISINOPRIL 20 MG TABLET PO SCH (21:00)
[2020-05-25 02:50] VITALS: BP 225/57
[2020-05-25 05:21] LABS: BASO % 1 % (0-3); EOS # 0.2 x10^3/uL (0.0-0.7); EOS % 3 % (0-3); HEMATOCRIT 24.2 % (36.0-47.0); HEMOGLOBIN 8.2 g/dL (12.0-15.5); LYMPH # 1.9 x10^3/uL (1.0-4.8); LYMPH % 27 % (24-48); MEAN CORPUSCULAR HEMOGLOBIN 34 pg (25-35); MEAN CORPUSCULAR HGB CONC 34 g/dL (31-37); MEAN CORPUSCULAR VOLUME 101 fL (79-100); MONO # 0.8 x10^3/uL (0.0-1.1); MONO % 12 % (0-9); NEUT % 57 % (31-73); PLATELET COUNT 163 x10^3/uL (140-400); RED CELL DISTRIBUTION WIDTH 12.4 % (11.5-14.5)
[2020-05-25 05:47] LABS: CALCIUM 8.7 mg/dL (8.5-10.1); CREATININE 9.4 mg/dL (0.6-1.0); GFR 4.2; POTASSIUM 4.8 mmol/L (3.5-5.1)
[2020-05-25 07:31] VITALS: BP 205/57
[2020-05-25] MEDS: CALCIUM ACETATE 667 MG CAPSULE PO SCH ×3 (08:44→16:59)
[2020-05-25] MEDS: CLOPIDOGREL BISULFATE 75 MG TABLET PO SCH (08:44)
[2020-05-25] MEDS: clonazePAM 0.5 MG TABLET PO PRN ×2 (08:45→21:16)
[2020-05-25] MEDS: LABETALOL HCL 200 MG TABLET PO SCH ×2 (08:45→21:01)
[2020-05-25] MEDS: ISOSORBIDE MONONITRATE ER 30 MG TAB.ER.24H PO SCH (08:45)
[2020-05-25] MEDS: ASPIRIN ENTERIC COATED 81 MG TABLET.DR. PO SCH (08:45)
[2020-05-25] MEDS: FUROSEMIDE 40 MG TABLET. PO SCH ×2 (08:46→16:59)
[2020-05-25] MEDS: LISINOPRIL 20 MG TABLET PO SCH (08:46)
[2020-05-25 10:38] VITALS: BP 182/56
--- NOTE | 2020-05-25 10:43 | PDOC ---
PROGRESS NOTES Date of Service: DATE: 05/25/20 TIME: 10:43 Subjective Subjective Denied any chest pain today Objective Objective Vital Signs Date Time Temp Pulse Resp B/P (MAP) Pulse Ox O2 Delivery O2 Flow Rate FiO2 05/25/20 10:38 98.4 68 18 182/56 (98) 97 Room Air 98.4 Intake and Output 05/25/20 07:00 Intake Total 540 ml Balance 540 ml Intake Oral 540 ml # Bowel Movements 2 Physical Exam Abdomen: Normal bowel sounds, Soft, No tenderness Heart: Regular rate Extremities: No cyanosis General: Alert, Oriented X3, Cooperative, No acute distress HEENT: Atraumatic, PERRLA Lungs: Clear to auscultation MUSCULOSKELETAL: No joint tenderness, No deformity, No swelling Neuro: Normal gait, Normal speech, Normal tone Psych/Mental Status: Mental status NL, Mood NL Assessment Assessment 1. Chest pain with atypical features, most probably GI etiology since this is associated with nausea and worse in the night. Slight troponin elevation probably secondary to demand ischemia/ESRD. She is currently chest pain-free. Patient has known history of coronary artery disease and has undergone PCI/stent placement to RCA in 2016. Her 2D echo in May 2018 showed LVEF 50 to 55%. Plan for outpatient 2D echo and Lexiscan nuclear stress test. Continue current secondary prevention measures. 2. Accelerated hypertension: Blood pressure continues to be elevated despite starting labetalol yesterday. Start hydralazine for better control. 3. Hyperlipidemia: Continue statin therapy 4. End-stage renal disease: Continue hemodialysis per nephrology team Plan Plan of Care Problems Medical Problems: (1) Chest pain Status: Acute (2) Hypertension with goal of symptom management only Status: Acute Comment Review of Relevant I have reviewed the following items fede (where applicable) has been applied. Labs Laboratory Tests Test 05/24/20 11:30 05/24/20 12:45 05/24/20 16:29 05/24/20 19:48 Glucose (Fingerstick) 115 mg/dL (70-99) 254 mg/dL (70-99) 227 mg/dL (70-99) White Blood Count 5.8 x10^3/uL (4.0-11.0) Red Blood Count 2.53 x10^6/uL (3.50-5.40) Hemoglobin 8.6 g/dL (12.0-15.5) Hematocrit 25.5 % (36.0-47.0) Mean Corpuscular Volume 101 fL (79-100) Mean Corpuscular Hemoglobin 34 pg (25-35) Mean Corpuscular Hemoglobin Concent 34 g/dL (31-37) Red Cell Distribution Width 12.3 % (11.5-14.5) Platelet Count 174 x10^3/uL (140-400) Neutrophils (%) (Auto) 66 % (31-73) Lymphocytes (%) (Auto) 21 % (24-48) Monocytes (%) (Auto) 8 % (0-9) Eosinophils (%) (Auto) 4 % (0-3) Basophils (%) (Auto) 1 % (0-3) Neutrophils # (Auto) 3.8 x10^3/uL (1.8-7.7) Lymphocytes # (Auto) 1.2 x10^3/uL (1.0-4.8) Monocytes # (Auto) 0.5 x10^3/uL (0.0-1.1) Eosinophils # (Auto) 0.2 x10^3/uL (0.0-0.7) Basophils # (Auto) 0.1 x10^3/uL (0.0-0.2) Sodium Level 137 mmol/L (136-145) Potassium Level 4.7 mmol/L (3.5-5.1) Chloride Level 99 mmol/L (98-107) Carbon Dioxide Level 27 mmol/L (21-32) Anion Gap 11 (6-14) Blood Urea Nitrogen 45 mg/dL (7-20) Creatinine 8.1 mg/dL (0.6-1.0) Estimated GFR (Cockcroft-Gault) 5.0 Glucose Level 178 mg/dL (70-99) Calcium Level 8.5 mg/dL (8.5-10.1) Test 05/25/20 04:30 05/25/20 08:39 White Blood Count 7.0 x10^3/uL (4.0-11.0) Red Blood Count 2.40 x10^6/uL (3.50-5.40) Hemoglobin 8.2 g/dL (12.0-15.5) Hematocrit 24.2 % (36.0-47.0) Mean Corpuscular Volume 101 fL (79-100) Mean Corpuscular Hemoglobin 34 pg (25-35) Mean Corpuscular Hemoglobin Concent 34 g/dL (31-37) Red Cell Distribution Width 12.4 % (11.5-14.5) Platelet Count 163 x10^3/uL (140-400) Neutrophils (%) (Auto) 57 % (31-73) Lymphocytes (%) (Auto) 27 % (24-48) Monocytes (%) (Auto) 12 % (0-9) Eosinophils (%) (Auto) 3 % (0-3) Basophils (%) (Auto) 1 % (0-3) Neutrophils # (Auto) 4.0 x10^3/uL (1.8-7.7) Lymphocytes # (Auto) 1.9 x10^3/uL (1.0-4.8) Monocytes # (Auto) 0.8 x10^3/uL (0.0-1.1) Eosinophils # (Auto) 0.2 x10^3/uL (0.0-0.7) Basophils # (Auto) 0.0 x10^3/uL (0.0-0.2) Sodium Level 135 mmol/L (136-145) Potassium Level 4.8 mmol/L (3.5-5.1) Chloride Level 97 mmol/L (98-107) Carbon Dioxide Level 26 mmol/L (21-32) Anion Gap 12 (6-14) Blood Urea Nitrogen 63 mg/dL (7-20) Creatinine 9.4 mg/dL (0.6-1.0) Estimated GFR (Cockcroft-Gault) 4.2 Glucose Level 159 mg/dL (70-99) Calcium Level 8.7 mg/dL (8.5-10.1) Glucose (Fingerstick) 174 mg/dL (70-99) Medications Current Medications Amlodipine Besylate (Norvasc) 10 mg DAILY PO Last administered on 05/25/20at 08:45; Start 05/24/20 at 11:30 Aspirin (Ecotrin) 81 mg DAILYWBKFT PO Last administered on 05/25/20at 08:45; Start 05/24/20 at 11:30 Atorvastatin Calcium (Lipitor) 80 mg QHS PO Last administered on 05/24/20at 19:54; Start 05/24/20 at 21:00 Calcium Acetate (Phoslo) 2,001 mg TIDWMEALS PO Last administered on 05/25/20at 08:44; Start 05/24/20 at 12:00 Carvedilol (Coreg) 25 mg BIDWMEALS PO Last administered on 05/24/20at 11:31; Start 05/24/20 at 11:30; Stop 05/24/20 at 13:28; Status DC Clonazepam (KlonoPIN) 0.5 mg TID PRN PO ANXIETY / AGITATION Last administered on 05/25/20at 08:45; Start 05/24/20 at 10:45 Clopidogrel Bisulfate (Plavix) 75 mg DAILY PO Last administered on 05/25/20at 08:44; Start 05/24/20 at 11:30 Furosemide (Lasix) 40 mg BID94 PO Last administered on 05/24/20at 11:30; Start 05/24/20 at 11:30 Isosorbide Mononitrate (Imdur) 30 mg DAILY PO Last administered on 05/25/20at 08:45; Start 05/24/20 at 11:30 Labetalol HCl (Trandate) 200 mg BID PO Last administered on 05/25/20at 08:45; Start 05/24/20 at 21:00 Lisinopril (Prinivil) 40 mg BID PO ; Start 05/24/20 at 21:00; Status UNV Lisinopril (Prinivil) 40 mg DAILY PO Last administered on 05/25/20at 08:46; Start 05/24/20 at 13:30 Vitals/I & O Vital Sign - Last 24 Hours 05/24/20 05/24/20 05/24/20 05/24/20 11:30 11:30 11:31 14:13 Temp 98.0 98.0 Pulse 75 75 75 88 Resp 19 B/P (MAP) 206/79 206/79 206/79 185/78 (113) Pulse Ox 95 O2 Delivery Room Air 05/24/20 05/24/20 05/24/20 05/24/20 14:38 19:32 19:54 20:00 Temp 98.4 98.4 Pulse 88 72 72 Resp 18 B/P (MAP) 185/78 205/60 (108) 205/60 Pulse Ox 95 O2 Delivery Room Air Room Air 05/24/20 05/25/20 05/25/20 05/25/20 22:37 02:50 07:31 07:35 Temp 98.3 98.7 97.8 98.3 98.7 97.8 Pulse 72 71 78 Resp 18 18 20 B/P (MAP) 208/67 (114) 225/57 (112) 205/57 (106) Pulse Ox 96 99 98 O2 Delivery Room Air Room Air Room Air Room Air 05/25/20 05/25/20 05/25/20 05/25/20 08:45 08:45 08:45 08:46 Pulse 78 78 78 78 B/P (MAP) 205/57 205/57 205/57 205/57 05/25/20 10:38 Temp 98.4 98.4 Pulse 68 Resp 18 B/P (MAP) 182/56 (98) Pulse Ox 97 O2 Delivery Room Air Intake and Output 05/24/20 05/24/20 05/25/20 15:00 23:00 07:00 Intake Total 300 ml 240 ml 0 ml Balance 300 ml 240 ml 0 ml SYDNEY HANNAH MD May 25, 2020 10:43
--- NOTE | 2020-05-25 11:48 | PDOC ---
[employer] PROGRESS NOTE Date of Service DOS: DATE: 05/25/20 TIME: 11:42 Chief Complaint Chief Complaint Chest pain, HTN End-stage renal disease on dialysis, noncompliance, CHF, diabetes, hypertension, hyperlipidemia, pneumonia, psoriasis, angioplasty, thoracentesis, cardiac stents, dialysis catheter placement. History of Present Illness History of Present Illness The patient is a pleasant 65-year-old female with multiple comorbidities. She is well known to my service. She basically presented last night with chest pain, rates it at 6/10, has been occurring for several days, worse with moving, better with sitting still. She increased her home meds, but that did not work, described as very irritating. I discussed the case with ER physician. We are admitting the patient with consultation to Cardiology. 05/25/2020 -Patient seen and examined -DAPHNE RN, DAPHNE upper caser -Chart reviewed Vitals/I&O Vitals/I&O: Vital Signs Date Time Temp Pulse Resp B/P (MAP) Pulse Ox O2 Delivery O2 Flow Rate FiO2 05/25/20 10:38 98.4 68 18 182/56 (98) 97 Room Air 98.4 I & O 05/24/20 05/24/20 05/25/20 15:00 23:00 07:00 Intake Total 300 ml 240 ml 0 ml Balance 300 ml 240 ml 0 ml Physical Exam General: Alert, Oriented X3, Cooperative, No acute distress Heart: Regular rate Lungs: Crackles, Other Abdomen: Normal bowel sounds, Soft, No tenderness Extremities: No cyanosis Skin: No breakdown, No significant lesion Labs Labs: Laboratory Tests Test 05/24/20 12:45 05/24/20 16:29 05/24/20 19:48 05/25/20 04:30 White Blood Count 5.8 x10^3/uL (4.0-11.0) 7.0 x10^3/uL (4.0-11.0) Red Blood Count 2.53 x10^6/uL (3.50-5.40) 2.40 x10^6/uL (3.50-5.40) Hemoglobin 8.6 g/dL (12.0-15.5) 8.2 g/dL (12.0-15.5) Hematocrit 25.5 % (36.0-47.0) 24.2 % (36.0-47.0) Mean Corpuscular Volume 101 fL (79-100) 101 fL (79-100) Mean Corpuscular Hemoglobin 34 pg (25-35) 34 pg (25-35) Mean Corpuscular Hemoglobin Concent 34 g/dL (31-37) 34 g/dL (31-37) Red Cell Distribution Width 12.3 % (11.5-14.5) 12.4 % (11.5-14.5) Platelet Count 174 x10^3/uL (140-400) 163 x10^3/uL (140-400) Neutrophils (%) (Auto) 66 % (31-73) 57 % (31-73) Lymphocytes (%) (Auto) 21 % (24-48) 27 % (24-48) Monocytes (%) (Auto) 8 % (0-9) 12 % (0-9) Eosinophils (%) (Auto) 4 % (0-3) 3 % (0-3) Basophils (%) (Auto) 1 % (0-3) 1 % (0-3) Neutrophils # (Auto) 3.8 x10^3/uL (1.8-7.7) 4.0 x10^3/uL (1.8-7.7) Lymphocytes # (Auto) 1.2 x10^3/uL (1.0-4.8) 1.9 x10^3/uL (1.0-4.8) Monocytes # (Auto) 0.5 x10^3/uL (0.0-1.1) 0.8 x10^3/uL (0.0-1.1) Eosinophils # (Auto) 0.2 x10^3/uL (0.0-0.7) 0.2 x10^3/uL (0.0-0.7) Basophils # (Auto) 0.1 x10^3/uL (0.0-0.2) 0.0 x10^3/uL (0.0-0.2) Sodium Level 137 mmol/L (136-145) 135 mmol/L (136-145) Potassium Level 4.7 mmol/L (3.5-5.1) 4.8 mmol/L (3.5-5.1) Chloride Level 99 mmol/L (98-107) 97 mmol/L (98-107) Carbon Dioxide Level 27 mmol/L (21-32) 26 mmol/L (21-32) Anion Gap 11 (6-14) 12 (6-14) Blood Urea Nitrogen 45 mg/dL (7-20) 63 mg/dL (7-20) Creatinine 8.1 mg/dL (0.6-1.0) 9.4 mg/dL (0.6-1.0) Estimated GFR (Cockcroft-Gault) 5.0 4.2 Glucose Level 178 mg/dL (70-99) 159 mg/dL (70-99) Calcium Level 8.5 mg/dL (8.5-10.1) 8.7 mg/dL (8.5-10.1) Glucose (Fingerstick) 254 mg/dL (70-99) 227 mg/dL (70-99) Test 05/25/20 08:39 Glucose (Fingerstick) 174 mg/dL (70-99) Review of Systems Review of Systems: No clubbing, no ecchymosis Assessment and Plan Assessmemt and Plan Problems Medical Problems: (1) Chest pain Status: Acute (2) Hypertension with goal of symptom management only Status: Acute 05/25/2020: A: Chest pain and volume overload in the setting of end-stage renal disease Suspected acute on chronic systolic and diastolic heart failure azotemia anemia End-stage renal disease on dialysis, noncompliance, CHF, diabetes, hypertension, hyperlipidemia, pneumonia, psoriasis, angioplasty, thoracentesis, cardiac stents, dialysis catheter placement. P: Consult Cardiology Serial enzymes Serial EKGs, Cardiac monitoring HD per nephrology recommendation Home meds DVT prophylaxis Full code Trend labs. Comment Review of Relevant I have reviewed the following items fede (where applicable) has been applied. Medications: Current Medications Medications (Trade) Dose Ordered Sig/Aguila Route PRN Reason Start Time Stop Time Status Last Admin Dose Admin Atorvastatin Calcium (Lipitor) 80 mg QHS PO 05/24/20 21:00 05/24/20 19:54 Calcium Acetate (Phoslo) 2,001 mg TIDWMEALS PO 05/24/20 12:00 05/25/20 08:44 Labetalol HCl (Trandate) 200 mg BID PO 05/24/20 21:00 05/25/20 08:45 Lisinopril (Prinivil) 40 mg DAILY PO 05/24/20 13:30 05/25/20 08:46 Justifications for Admission Other Justification FINN PEARL III DO May 25, 2020 11:48
[2020-05-25] MEDS: hydrALAZINE 25 MG TABLET PO SCH ×2 (14:10→21:01)
[2020-05-25 14:35] VITALS: BP 199/68
--- NOTE | 2020-05-25 14:43 | PDOC ---
Renal-Progress Notes Subjective Notes Notes NO NEW COMPLAINTS History of Present Illness Hx of present illness STABLE Vitals Vitals Vital Signs Date Time Temp Pulse Resp B/P (MAP) Pulse Ox O2 Delivery O2 Flow Rate FiO2 05/25/20 14:35 97.9 68 16 199/68 (111) 96 Room Air 97.9 Weight Weight [ ] I.O. Intake and Output Intake and Output 05/25/20 07:00 Intake Total 540 ml Balance 540 ml Intake Oral 540 ml # Bowel Movements 2 Labs Labs Laboratory Tests Test 05/24/20 16:29 05/24/20 19:48 05/25/20 04:30 05/25/20 08:39 Glucose (Fingerstick) 254 mg/dL (70-99) 227 mg/dL (70-99) 174 mg/dL (70-99) White Blood Count 7.0 x10^3/uL (4.0-11.0) Red Blood Count 2.40 x10^6/uL (3.50-5.40) Hemoglobin 8.2 g/dL (12.0-15.5) Hematocrit 24.2 % (36.0-47.0) Mean Corpuscular Volume 101 fL (79-100) Mean Corpuscular Hemoglobin 34 pg (25-35) Mean Corpuscular Hemoglobin Concent 34 g/dL (31-37) Red Cell Distribution Width 12.4 % (11.5-14.5) Platelet Count 163 x10^3/uL (140-400) Neutrophils (%) (Auto) 57 % (31-73) Lymphocytes (%) (Auto) 27 % (24-48) Monocytes (%) (Auto) 12 % (0-9) Eosinophils (%) (Auto) 3 % (0-3) Basophils (%) (Auto) 1 % (0-3) Neutrophils # (Auto) 4.0 x10^3/uL (1.8-7.7) Lymphocytes # (Auto) 1.9 x10^3/uL (1.0-4.8) Monocytes # (Auto) 0.8 x10^3/uL (0.0-1.1) Eosinophils # (Auto) 0.2 x10^3/uL (0.0-0.7) Basophils # (Auto) 0.0 x10^3/uL (0.0-0.2) Sodium Level 135 mmol/L (136-145) Potassium Level 4.8 mmol/L (3.5-5.1) Chloride Level 97 mmol/L (98-107) Carbon Dioxide Level 26 mmol/L (21-32) Anion Gap 12 (6-14) Blood Urea Nitrogen 63 mg/dL (7-20) Creatinine 9.4 mg/dL (0.6-1.0) Estimated GFR (Cockcroft-Gault) 4.2 Glucose Level 159 mg/dL (70-99) Calcium Level 8.7 mg/dL (8.5-10.1) Test 05/25/20 12:25 Glucose (Fingerstick) 261 mg/dL (70-99) Physical Exam General Appearance: no apparent distress Skin: warm Respiratory: bilateral CTA Heart: S1S2 Abdomen: soft Genitourinary: bladder flat Extremities: pulses present, no edema, other (LEFT ARM AVF HAS THRILL AND BRUIT) Neurology: alert Assessment Assessment IMP CHEST PAIN HYPERKALEMIA-RESOLVED S/P LEFT AVF CREATION LAST TUESDAY ANEMIA ESRD DM II HTN PLAN HD TOMORROW COLLEEN WHEN NEEDED ENC COMPLIANCE CARDIOLOGY EVAL AND TX WILL FOLLOW ЕЛЕНА MANZANO MD May 25, 2020 14:43
[2020-05-25 19:50] VITALS: BP 206/63
[2020-05-25] MEDS: ATORVASTATIN CALCIUM 40 MG TABLET. PO SCH (21:00)
[2020-05-25 22:56] VITALS: BP 205/64
[2020-05-26 03:08] VITALS: BP 214/51
[2020-05-26 06:21] LABS: CALCIUM 8.7 mg/dL (8.5-10.1); GFR 3.5; POTASSIUM 5.2 mmol/L (3.5-5.1)
[2020-05-26 06:59] LABS: BASO % 1 % (0-3); EOS # 0.2 x10^3/uL (0.0-0.7); EOS % 4 % (0-3); HEMATOCRIT 23.3 % (36.0-47.0); HEMOGLOBIN 7.8 g/dL (12.0-15.5); LYMPH # 1.7 x10^3/uL (1.0-4.8); LYMPH % 26 % (24-48); MEAN CORPUSCULAR HEMOGLOBIN 34 pg (25-35); MEAN CORPUSCULAR HGB CONC 33 g/dL (31-37); MEAN CORPUSCULAR VOLUME 101 fL (79-100); MONO # 0.7 x10^3/uL (0.0-1.1); MONO % 11 % (0-9); NEUT # 3.8 x10^3/uL (1.8-7.7); NEUT % 58 % (31-73); PLATELET COUNT 154 x10^3/uL (140-400); RED CELL DISTRIBUTION WIDTH 12.4 % (11.5-14.5); WHITE BLOOD COUNT 6.6 x10^3/uL (4.0-11.0)
[2020-05-26 07:00] VITALS: BP 193/62
--- NOTE | 2020-05-26 07:06 | PDOC ---
[employer] PROGRESS NOTE Date of Service DOS: DATE: 05/26/20 TIME: 07:04 Chief Complaint Chief Complaint Chest pain, HTN End-stage renal disease on dialysis, noncompliance, diastolic CHF, diabetes, hypertension, hyperlipidemia, possible community-acquired pneumonia, ruled out, psoriasis, angioplasty, thoracentesis, cardiac stents, dialysis catheter placement. History of Present Illness History of Present Illness The patient is a pleasant 65-year-old female with multiple comorbidities. She is well known to my service. She basically presented last night with chest pain, rates it at 6/10, has been occurring for several days, worse with moving, better with sitting still. She increased her home meds, but that did not work, described as very irritating. I discussed the case with ER physician. We are admitting the patient with consultation to Cardiology. 05/25/2020 -Patient seen and examined -DAPHNE RN, DAPHNE case preparer and liner -Chart reviewed 05/26: Patient seen and evaluated. Still with some hypertension today, started on hydralazine yesterday. HD today. Per cardiology, outpatient 2D echo and stress test. Charts and labs reviewed. Vitals/I&O Vitals/I&O: Vital Signs Date Time Temp Pulse Resp B/P (MAP) Pulse Ox O2 Delivery O2 Flow Rate FiO2 05/26/20 03:08 98.3 70 18 214/51 (105) 96 Room Air 98.3 I & O 05/25/20 05/25/20 05/26/20 15:00 23:00 07:00 Intake Total 540 ml 550 ml 0 ml Output Total 100 ml 400 ml Balance 540 ml 450 ml -400 ml Physical Exam General: Alert, Oriented X3, Cooperative, No acute distress Heart: Regular rate Lungs: Crackles, Other Abdomen: Normal bowel sounds, Soft, No tenderness Extremities: No cyanosis Skin: No breakdown, No significant lesion Labs Labs: Laboratory Tests Test 05/25/20 08:39 05/25/20 12:25 05/25/20 16:13 05/25/20 21:07 Glucose (Fingerstick) 174 mg/dL (70-99) 261 mg/dL (70-99) 264 mg/dL (70-99) 252 mg/dL (70-99) Test 05/26/20 05:16 05/26/20 07:02 Sodium Level 134 mmol/L (136-145) Potassium Level 5.2 mmol/L (3.5-5.1) Chloride Level 97 mmol/L (98-107) Carbon Dioxide Level 25 mmol/L (21-32) Anion Gap 12 (6-14) Blood Urea Nitrogen 73 mg/dL (7-20) Creatinine 11.0 mg/dL (0.6-1.0) Estimated GFR (Cockcroft-Gault) 3.5 Glucose Level 143 mg/dL (70-99) Calcium Level 8.7 mg/dL (8.5-10.1) Glucose (Fingerstick) 156 mg/dL (70-99) Assessment and Plan Assessmemt and Plan Problems Medical Problems: (1) Chest pain Status: Acute (2) Hypertension with goal of symptom management only Status: Acute Comment Review of Relevant I have reviewed the following items fede (where applicable) has been applied. Medications: Current Medications Medications (Trade) Dose Ordered Sig/Aguila Route PRN Reason Start Time Stop Time Status Last Admin Dose Admin Hydralazine HCl (Apresoline) 25 mg TID PO 05/25/20 14:00 05/25/20 21:01 Justifications for Admission Other Justification MARCO ANTONIO ELISE MD May 26, 2020 07:05
[2020-05-26] MEDS ORDERED: IV NORMAL SALINE 1000ML BAG 1,000 ML IV PRN ×2 (08:00)
[2020-05-26] MEDS: CALCIUM ACETATE 667 MG CAPSULE PO SCH ×3 (08:00→16:32)
[2020-05-26] MEDS ORDERED: DIALYSIS PATIENT. MC PRN (08:00)
[2020-05-26] MEDS: hydrALAZINE 25 MG TABLET PO SCH (09:00)
--- NOTE | 2020-05-26 09:28 | PDOC ---
DATE OF SERVICE DATE: 05/26/20 TIME: 09:28 SUBJECTIVE ROS seen on dialysis, no complaints OBJECTIVE Vital Signs Vital Signs Date Time Temp Pulse Resp B/P (MAP) Pulse Ox O2 Delivery O2 Flow Rate FiO2 05/26/20 07:00 97.5 88 16 193/62 (105) 96 Room Air 97.5 I & 0 Intake and Output 05/26/20 07:00 Intake Total 1090 ml Output Total 500 ml Balance 590 ml Intake Oral 1090 ml Output Urine Total 500 ml PHYSICAL EXAM Physical Exam General: Alert, Oriented X3 HEENT: Atraumatic Lungs: Clear to auscultation Heart: Regular rate Abdomen: Soft, No hepatosplenomegaly Neuro: Normal speech Psych/Mental Status: Mood NL DIAGNOSIS/ASSESSMENT Assessment & Plan ESRD-- MWF seen on dialysis, tolerating well, continue as ordered, Joshua Miller S/P Lt AVF creation last Tuesday Chest Pain Per cardiology most probably GI etiology since this is associated with nausea and worse in the night history of coronary artery disease s/p PCI/stent placement to RCA in 2015. Her 2D echo in May 2018 showed LVEF 50 to 55%. Plan for outpatient 2D echo and Lexiscan nuclear stress test. Accelerated hypertension:cardiology managing HyperKalemia resolved Anemia- slow decline since admission . Start COLLEEN diabetes mellitus type II HTN- Antihypertensives Chronic Non compliance with HD , COMMENT/RELEVANT DATA Meds Current Medications Medications (Trade) Dose Ordered Sig/Aguila Start Time Stop Time Status Last Admin Dose Admin Albumin Human 200 ml @ 200 mls/hr 1X PRN PRN 05/23/20 22:15 05/24/20 04:14 DC Amlodipine Besylate (Norvasc) 10 mg DAILY 05/24/20 11:30 05/25/20 08:45 10 MG Aspirin (Ecotrin) 81 mg DAILYWBKFT 05/24/20 11:30 05/25/20 08:45 81 MG Atorvastatin Calcium (Lipitor) 80 mg QHS 05/24/20 21:00 05/25/20 21:00 80 MG Calcium Acetate (Phoslo) 2,001 mg TIDWMEALS 05/24/20 12:00 05/25/20 16:59 2,001 MG Carvedilol (Coreg) 25 mg BIDWMEALS 05/24/20 11:30 05/24/20 13:28 DC 05/24/20 11:31 25 MG Clonazepam (KlonoPIN) 0.5 mg TID PRN 05/24/20 10:45 05/25/20 21:16 0.5 MG Clopidogrel Bisulfate (Plavix) 75 mg DAILY 05/24/20 11:30 05/25/20 08:44 75 MG Furosemide (Lasix) 40 mg BID94 05/24/20 11:30 05/25/20 16:59 40 MG Hydralazine HCl (Apresoline) 25 mg TID 05/25/20 14:00 05/25/20 21:01 25 MG Info (PHARMACY MONITORING -- do not chart) 1 each PRN DAILY PRN 05/26/20 08:00 Isosorbide Mononitrate (Imdur) 30 mg DAILY 05/24/20 11:30 05/25/20 08:45 30 MG Labetalol HCl (Trandate) 200 mg BID 05/24/20 21:00 05/25/20 21:01 200 MG Lisinopril (Prinivil) 40 mg DAILY 05/24/20 13:30 05/25/20 08:46 40 MG Nitroglycerin (Nitro-Bid Oint) 1 inch 1X ONCE 05/23/20 17:45 05/23/20 17:46 DC 05/23/20 18:22 1 INCH Nitroglycerin (Nitrostat) 0.4 mg PRN Q5MIN PRN 05/23/20 17:15 Sodium Chloride 1,000 ml @ 400 mls/hr Q2H30M PRN 05/26/20 08:00 05/26/20 19:59 Sodium Chloride (Normal Saline Flush) 10 ml 1X PRN PRN 05/23/20 22:15 05/24/20 22:14 DC Lab Laboratory Tests Test 05/25/20 12:25 05/25/20 16:13 05/25/20 21:07 05/26/20 05:16 Glucose (Fingerstick) 261 mg/dL (70-99) 264 mg/dL (70-99) 252 mg/dL (70-99) White Blood Count 6.6 x10^3/uL (4.0-11.0) Red Blood Count 2.30 x10^6/uL (3.50-5.40) Hemoglobin 7.8 g/dL (12.0-15.5) Hematocrit 23.3 % (36.0-47.0) Mean Corpuscular Volume 101 fL (79-100) Mean Corpuscular Hemoglobin 34 pg (25-35) Mean Corpuscular Hemoglobin Concent 33 g/dL (31-37) Red Cell Distribution Width 12.4 % (11.5-14.5) Platelet Count 154 x10^3/uL (140-400) Neutrophils (%) (Auto) 58 % (31-73) Lymphocytes (%) (Auto) 26 % (24-48) Monocytes (%) (Auto) 11 % (0-9) Eosinophils (%) (Auto) 4 % (0-3) Basophils (%) (Auto) 1 % (0-3) Neutrophils # (Auto) 3.8 x10^3/uL (1.8-7.7) Lymphocytes # (Auto) 1.7 x10^3/uL (1.0-4.8) Monocytes # (Auto) 0.7 x10^3/uL (0.0-1.1) Eosinophils # (Auto) 0.2 x10^3/uL (0.0-0.7) Basophils # (Auto) 0.0 x10^3/uL (0.0-0.2) Sodium Level 134 mmol/L (136-145) Potassium Level 5.2 mmol/L (3.5-5.1) Chloride Level 97 mmol/L (98-107) Carbon Dioxide Level 25 mmol/L (21-32) Anion Gap 12 (6-14) Blood Urea Nitrogen 73 mg/dL (7-20) Creatinine 11.0 mg/dL (0.6-1.0) Estimated GFR (Cockcroft-Gault) 3.5 Glucose Level 143 mg/dL (70-99) Calcium Level 8.7 mg/dL (8.5-10.1) Test 05/26/20 07:02 Glucose (Fingerstick) 156 mg/dL (70-99) Results All relevant outside records, renal labs, imaging studies, telemetry/EKG's were reviewed. Justicifation of Admission Dx: Justifications for Admission: Justification of Admission Dx: N/A JAIMEE MATIAS MD May 26, 2020 09:28
[2020-05-26] MEDS: CLOPIDOGREL BISULFATE 75 MG TABLET PO SCH (12:34)
[2020-05-26] MEDS: FUROSEMIDE 40 MG TABLET. PO SCH ×2 (12:34→16:31)
[2020-05-26] MEDS: LISINOPRIL 20 MG TABLET PO SCH (12:34)
[2020-05-26] MEDS: ISOSORBIDE MONONITRATE ER 30 MG TAB.ER.24H PO SCH (12:35)
[2020-05-26] MEDS: LABETALOL HCL 200 MG TABLET PO SCH ×2 (12:35→21:09)
[2020-05-26] MEDS: ASPIRIN ENTERIC COATED 81 MG TABLET.DR. PO SCH (12:35)
[2020-05-26 12:41] VITALS: BP 208/56
[2020-05-26] MEDS ORDERED: MORPHINE SULFATE 2 MG/ML VIAL. IV PRN (13:30)
[2020-05-26] MEDS: traMADol 50 MG TABLET PO PRN ×2 (13:44→21:14)
--- NOTE | 2020-05-26 13:53 | NUR ---
SS following for discharge planning. SS reviewed pt chart and discussed with pt RN. Pt is from home with spouse and is currently on room air. Pt has outpatient hemodialysis at [facility], ; fax [phone], Tuesday, Tuesday, and Tuesday at 1600. PT/OT recommended home with assistance. SS will continue to follow for discharge planning.
[2020-05-26] MEDS ORDERED: hydrALAZINE 20 MG/ML VIAL. IVP PRN (14:15)
[2020-05-26 14:38] VITALS: BP 206/85
--- NOTE | 2020-05-26 14:42 | PDOC ---
PROGRESS NOTES Date of Service: DATE: 05/26/20 TIME: 14:41 Subjective Subjective Patient denied any further episodes of chest pain. Objective Objective Vital Signs Date Time Temp Pulse Resp B/P (MAP) Pulse Ox O2 Delivery O2 Flow Rate FiO2 05/26/20 14:38 98.1 81 18 206/85 (125) 100 Room Air 98.1 Intake and Output 05/26/20 07:00 Intake Total 1090 ml Output Total 500 ml Balance 590 ml Intake Oral 1090 ml Output Urine Total 500 ml Physical Exam Abdomen: Normal bowel sounds, Soft, No tenderness Heart: Regular rate Extremities: No cyanosis General: Alert, Oriented X3, Cooperative, No acute distress HEENT: Atraumatic, PERRLA Lungs: Clear to auscultation MUSCULOSKELETAL: No joint tenderness, No deformity, No swelling Neuro: Normal gait, Normal speech, Normal tone Psych/Mental Status: Mental status NL, Mood NL Skin: No breakdown, No significant lesion Assessment Assessment 1. Chest pain with atypical features, most probably GI etiology since this is associated with nausea and worse in the night. Slight troponin elevation probably secondary to demand ischemia/ESRD. She is currently chest pain-free. Patient has known history of coronary artery disease and has undergone PCI/stent placement to RCA in 2016. Her 2D echo in May 2018 showed LVEF 50 to 55%. Plan for outpatient 2D echo and Lexiscan nuclear stress test. Continue current secondary prevention measures. 2. Accelerated hypertension: Blood pressure continues to be elevated. Increase labetalol and hydralazine doses for better control. 3. Hyperlipidemia: Continue statin therapy 4. End-stage renal disease: Continue hemodialysis per nephrology team Plan Plan of Care Problems Medical Problems: (1) Chest pain Status: Acute (2) Hypertension with goal of symptom management only Status: Acute Comment Review of Relevant I have reviewed the following items fede (where applicable) has been applied. Labs Laboratory Tests Test 05/25/20 16:13 05/25/20 21:07 05/26/20 05:16 05/26/20 07:02 Glucose (Fingerstick) 264 mg/dL (70-99) 252 mg/dL (70-99) 156 mg/dL (70-99) White Blood Count 6.6 x10^3/uL (4.0-11.0) Red Blood Count 2.30 x10^6/uL (3.50-5.40) Hemoglobin 7.8 g/dL (12.0-15.5) Hematocrit 23.3 % (36.0-47.0) Mean Corpuscular Volume 101 fL (79-100) Mean Corpuscular Hemoglobin 34 pg (25-35) Mean Corpuscular Hemoglobin Concent 33 g/dL (31-37) Red Cell Distribution Width 12.4 % (11.5-14.5) Platelet Count 154 x10^3/uL (140-400) Neutrophils (%) (Auto) 58 % (31-73) Lymphocytes (%) (Auto) 26 % (24-48) Monocytes (%) (Auto) 11 % (0-9) Eosinophils (%) (Auto) 4 % (0-3) Basophils (%) (Auto) 1 % (0-3) Neutrophils # (Auto) 3.8 x10^3/uL (1.8-7.7) Lymphocytes # (Auto) 1.7 x10^3/uL (1.0-4.8) Monocytes # (Auto) 0.7 x10^3/uL (0.0-1.1) Eosinophils # (Auto) 0.2 x10^3/uL (0.0-0.7) Basophils # (Auto) 0.0 x10^3/uL (0.0-0.2) Sodium Level 134 mmol/L (136-145) Potassium Level 5.2 mmol/L (3.5-5.1) Chloride Level 97 mmol/L (98-107) Carbon Dioxide Level 25 mmol/L (21-32) Anion Gap 12 (6-14) Blood Urea Nitrogen 73 mg/dL (7-20) Creatinine 11.0 mg/dL (0.6-1.0) Estimated GFR (Cockcroft-Gault) 3.5 Glucose Level 143 mg/dL (70-99) Calcium Level 8.7 mg/dL (8.5-10.1) Medications Current Medications Darbepoetin Malick (ARANESP for DIALYSIS PTS) 60 mcg WEEKLYHS SQ ; Start 05/26/20 at 21:00 Hydralazine HCl (Apresoline Inj) 10 mg PRN Q4HRS PRN IVP ELEVATED BP, SEE COMMENTS Last administered on 05/26/20at 14:29; Start 05/26/20 at 14:15 Hydralazine HCl (Apresoline) 50 mg TID PO Last administered on 05/26/20at 13:45; Start 05/26/20 at 14:00 Info (PHARMACY MONITORING -- do not chart) 1 each PRN DAILY PRN MC SEE COMMENTS; Start 05/26/20 at 08:00 Morphine Sulfate (Morphine Sulfate) 2 mg PRN Q2HR PRN IV PAIN; Start 05/26/20 at 13:30 Sodium Chloride 1,000 ml @ 400 mls/hr Q2H30M PRN IV PATENCY; Start 05/26/20 at 08:00; Stop 05/26/20 at 19:59 Sodium Chloride 1,000 ml @ 1,000 mls/hr Q1H PRN IV hypotension; Start 05/26/20 at 08:00; Stop 05/26/20 at 13:59; Status DC Tramadol HCl (Ultram) 50 mg PRN Q4HRS PRN PO PAIN Last administered on 05/26/20at 13:44; Start 05/26/20 at 13:30 Vitals/I & O Vital Sign - Last 24 Hours 05/25/20 05/25/20 05/25/20 05/25/20 19:50 20:00 21:01 21:01 Temp 98.1 98.1 Pulse 74 74 74 Resp 18 B/P (MAP) 206/63 (110) 206/63 206/63 Pulse Ox 92 O2 Delivery Room Air Room Air 05/25/20 05/26/20 05/26/20 05/26/20 22:56 03:08 07:00 07:35 Temp 98.4 98.3 97.5 98.4 98.3 97.5 Pulse 74 70 88 Resp 18 18 16 B/P (MAP) 205/64 (111) 214/51 (105) 193/62 (105) Pulse Ox 94 96 96 O2 Delivery Room Air Room Air Room Air Room Air 05/26/20 05/26/20 05/26/20 05/26/20 12:34 12:35 12:35 12:35 Pulse 86 86 86 86 B/P (MAP) 208/56 208/56 208/56 208/56 05/26/20 05/26/20 05/26/20 05/26/20 12:41 13:44 13:45 14:29 Pulse 92 92 78 Resp 20 B/P (MAP) 208/56 (106) 208/56 206/85 Pulse Ox 94 94 O2 Delivery Room Air Room Air 05/26/20 14:38 Temp 98.1 98.1 Pulse 81 Resp 18 B/P (MAP) 206/85 (125) Pulse Ox 100 O2 Delivery Room Air Intake and Output 05/25/20 05/25/20 05/26/20 15:00 23:00 07:00 Intake Total 540 ml 550 ml 0 ml Output Total 100 ml 400 ml Balance 540 ml 450 ml -400 ml SYDNEY HANNAH MD May 26, 2020 14:42
--- NOTE | 2020-05-26 15:20 | NUR ---
pt came back from dialysis with blood pressure of 208/56. pt was given morning medications and blood pressure was rechecked 45 minutes later. pt blood pressure was then 210/60. pt was given IVP hydralazine. pt blood pressure was rechecked 45 minutes later and blood pressure was 200/72.
[2020-05-26] MEDS ORDERED: LABETALOL 20 MG/4 ML DISP.SYRIN. IVP ONE (15:30)
[2020-05-26 19:13] VITALS: BP 151/64
[2020-05-26] MEDS ORDERED: DARBEPOETIN ALFA 60 MCG/0.3 ML DISP.SYRIN. SQ SCH (21:00)
[2020-05-26] MEDS: ATORVASTATIN CALCIUM 40 MG TABLET. PO SCH (21:08)
[2020-05-26] MEDS: clonazePAM 0.5 MG TABLET PO PRN (21:09)
[2020-05-26 22:49] VITALS: BP 153/72
[2020-05-27 03:01] VITALS: BP 142/71
[2020-05-27 07:00] VITALS: BP 171/57
--- NOTE | 2020-05-27 07:38 | PDOC ---
[employer] PROGRESS NOTE Date of Service DOS: DATE: 05/27/20 TIME: 07:26 Chief Complaint Chief Complaint Chest pain, HTN End-stage renal disease on dialysis, noncompliance, diastolic CHF, diabetes, hypertension, hyperlipidemia, possible community-acquired pneumonia, ruled out, psoriasis, angioplasty, thoracentesis, cardiac stents, dialysis catheter placement. History of Present Illness History of Present Illness Ms Varela 65 yo F with multiple comorbidities. She is well known to my service. She basically presented last night with chest pain, rates it at 6/10, has been occurring for several days, worse with moving, better with sitting still. She increased her home meds, but that did not work, described as very irritating. I discussed the case with ER physician. We are admitting the patient with consultation to Cardiology. 05/25: Patient seen and examined 05/26: Patient seen and evaluated. Still with some hypertension today, started on hydralazine yesterday. HD today. Per cardiology, outpatient 2D echo and stress test. Afebrile. Nausea and vomiting today. BP still elevated. Emphasize need for HD compliance. Vitals/I&O Vitals/I&O: Vital Signs Date Time Temp Pulse Resp B/P (MAP) Pulse Ox O2 Delivery O2 Flow Rate FiO2 05/27/20 03:01 98.1 63 18 142/71 (94) 98 Room Air 98.1 I & O 05/26/20 05/26/20 05/27/20 15:00 23:00 07:00 Intake Total 600 ml 0 ml Output Total 300 ml Balance 300 ml 0 ml Physical Exam General: Alert, Oriented X3, Cooperative, No acute distress Heart: Regular rate Lungs: Crackles, Other Abdomen: Normal bowel sounds, Soft, No tenderness Extremities: No cyanosis Skin: No breakdown, No significant lesion Labs Labs: Laboratory Tests Test 05/26/20 16:35 05/26/20 20:53 Glucose (Fingerstick) 212 mg/dL (70-99) 210 mg/dL (70-99) Assessment and Plan Assessmemt and Plan Problems Medical Problems: (1) Chest pain Status: Acute (2) Hypertension with goal of symptom management only Status: Acute Comment Review of Relevant I have reviewed the following items fede (where applicable) has been applied. Medications: Current Medications Medications (Trade) Dose Ordered Sig/Aguila Route PRN Reason Start Time Stop Time Status Last Admin Dose Admin Darbepoetin Malick (ARANESP for DIALYSIS PTS) 60 mcg WEEKLYHS SQ 05/26/20 21:00 05/26/20 21:15 Hydralazine HCl (Apresoline) 50 mg TID PO 05/26/20 14:00 05/26/20 21:10 Tramadol HCl (Ultram) 50 mg PRN Q4HRS PRN PO PAIN 05/26/20 13:30 05/26/20 21:14 Hydralazine HCl (Apresoline Inj) 10 mg PRN Q4HRS PRN IVP ELEVATED BP, SEE COMMENTS 05/26/20 14:15 05/26/20 14:29 Labetalol HCl (Trandate) 400 mg BID PO 05/26/20 21:00 05/26/20 21:09 Labetalol HCl (Normodyne Iv Push) 10 mg 1X ONCE IVP 05/26/20 15:30 05/26/20 15:31 DC 05/26/20 15:34 Justifications for Admission Other Justification RAMON RO MD May 27, 2020 07:38
[2020-05-27] MEDS: CALCIUM ACETATE 667 MG CAPSULE PO SCH ×3 (08:10→17:44)
[2020-05-27] MEDS: ASPIRIN ENTERIC COATED 81 MG TABLET.DR. PO SCH (08:10)
[2020-05-27] MEDS: LISINOPRIL 20 MG TABLET PO SCH (08:11)
[2020-05-27] MEDS: FUROSEMIDE 40 MG TABLET. PO SCH ×2 (08:11→17:44)
[2020-05-27] MEDS: CLOPIDOGREL BISULFATE 75 MG TABLET PO SCH (08:12)
[2020-05-27] MEDS: ISOSORBIDE MONONITRATE ER 30 MG TAB.ER.24H PO SCH (08:12)
[2020-05-27] MEDS: LABETALOL HCL 200 MG TABLET PO SCH ×2 (08:12→21:16)
[2020-05-27 08:44] LABS: BASO % 1 % (0-3); EOS # 0.2 x10^3/uL (0.0-0.7); EOS % 3 % (0-3); HEMATOCRIT 22.6 % (36.0-47.0); HEMOGLOBIN 7.4 g/dL (12.0-15.5); LYMPH # 1.4 x10^3/uL (1.0-4.8); LYMPH % 28 % (24-48); MEAN CORPUSCULAR HEMOGLOBIN 33 pg (25-35); MEAN CORPUSCULAR HGB CONC 33 g/dL (31-37); MEAN CORPUSCULAR VOLUME 102 fL (79-100); MONO # 0.6 x10^3/uL (0.0-1.1); MONO % 12 % (0-9); NEUT # 2.9 x10^3/uL (1.8-7.7); NEUT % 56 % (31-73); PLATELET COUNT 140 x10^3/uL (140-400); RED BLOOD COUNT 2.22 x10^6/uL (3.50-5.40); RED CELL DISTRIBUTION WIDTH 12.7 % (11.5-14.5); WHITE BLOOD COUNT 5.1 x10^3/uL (4.0-11.0)
[2020-05-27 09:06] LABS: CALCIUM 8.4 mg/dL (8.5-10.1); CREATININE 6.5 mg/dL (0.6-1.0); GFR 6.5; POTASSIUM 4.5 mmol/L (3.5-5.1)
--- NOTE | 2020-05-27 10:21 | PDOC ---
DATE OF SERVICE DATE: 05/27/20 TIME: 10:21 SUBJECTIVE ROS Stable OBJECTIVE Vital Signs Vital Signs Date Time Temp Pulse Resp B/P (MAP) Pulse Ox O2 Delivery O2 Flow Rate FiO2 05/27/20 08:12 66 171/57 05/27/20 07:35 Room Air 05/27/20 07:00 97.8 16 99 97.8 I & 0 Intake and Output 05/27/20 07:00 Intake Total 600 ml Output Total 300 ml Balance 300 ml Intake Oral 600 ml Output Urine Total 300 ml # Voids 1 PHYSICAL EXAM Physical Exam General: Alert, Oriented X3 HEENT: Atraumatic Lungs: Clear to auscultation Heart: Regular rate Abdomen: Soft, No hepatosplenomegaly Neuro: Normal speech Psych/Mental Status: Mood NL DIAGNOSIS/ASSESSMENT Assessment & Plan ESRD-- MWF No indication for HD today S/P Lt AVF recently Chest Pain Per cardiology most probably GI etiology since this is associated with nausea and worse in the night history of coronary artery disease s/p PCI/stent placement to RCA in 2016. Her 2D echo in May 2018 showed LVEF 50 to 55%. Plan for outpatient 2D echo and Lexiscan nuclear stress test. Accelerated hypertension:cardiology managing HyperKalemia resolved Anemia- slow decline since admission . Start COLLEEN diabetes mellitus type II HTN- Antihypertensives Chronic Non compliance with HD , COMMENT/RELEVANT DATA Meds Current Medications Medications (Trade) Dose Ordered Sig/Aguila Start Time Stop Time Status Last Admin Dose Admin Albumin Human 200 ml @ 200 mls/hr 1X PRN PRN 05/23/20 22:15 05/24/20 04:14 DC Amlodipine Besylate (Norvasc) 10 mg DAILY 05/24/20 11:30 05/27/20 08:12 10 MG Aspirin (Ecotrin) 81 mg [id number] 05/24/20 11:30 05/27/20 08:10 81 MG Atorvastatin Calcium (Lipitor) 80 mg QHS 05/24/20 21:00 05/26/20 21:08 80 MG Calcium Acetate (Phoslo) 2,001 mg TIDWMEALS 05/24/20 12:00 05/27/20 08:10 2,001 MG Carvedilol (Coreg) 25 mg BIDWMEALS 05/24/20 11:30 05/24/20 13:28 DC 05/24/20 11:31 25 MG Clonazepam (KlonoPIN) 0.5 mg TID PRN 05/24/20 10:45 05/26/20 21:09 0.5 MG Clopidogrel Bisulfate (Plavix) 75 mg DAILY 05/24/20 11:30 05/27/20 08:12 75 MG Darbepoetin Malick (ARANESP for DIALYSIS PTS) 60 mcg WEEKLYHS 05/26/20 21:00 05/26/20 21:15 60 MCG Furosemide (Lasix) 40 mg [id number] 05/24/20 11:30 05/27/20 08:11 40 MG Hydralazine HCl (Apresoline Inj) 10 mg PRN Q4HRS PRN 05/26/20 14:15 05/26/20 14:29 10 MG Hydralazine HCl (Apresoline) 50 mg TID 05/26/20 14:00 05/27/20 08:10 50 MG Info (PHARMACY MONITORING -- do not chart) 1 each PRN DAILY PRN 05/26/20 08:00 Isosorbide Mononitrate (Imdur) 30 mg DAILY 05/24/20 11:30 05/27/20 08:12 30 MG Labetalol HCl (Normodyne Iv Push) 10 mg 1X ONCE 05/26/20 15:30 05/26/20 15:31 DC 05/26/20 15:34 10 MG Labetalol HCl (Trandate) 400 mg BID 05/26/20 21:00 05/27/20 08:12 400 MG Lisinopril (Prinivil) 40 mg DAILY 05/24/20 13:30 05/27/20 08:11 40 MG Morphine Sulfate (Morphine Sulfate) 2 mg PRN Q2HR PRN 05/26/20 13:30 Nitroglycerin (Nitro-Bid Oint) 1 inch 1X ONCE 05/23/20 17:45 05/23/20 17:46 DC 05/23/20 18:22 1 INCH Nitroglycerin (Nitrostat) 0.4 mg PRN Q5MIN PRN 05/23/20 17:15 Sodium Chloride 1,000 ml @ 400 mls/hr Q2H30M PRN 05/26/20 08:00 05/26/20 19:59 DC Sodium Chloride (Normal Saline Flush) 10 ml 1X PRN PRN 05/23/20 22:15 05/24/20 22:14 DC Tramadol HCl (Ultram) 50 mg PRN Q4HRS PRN 05/26/20 13:30 05/26/20 21:14 50 MG Lab Laboratory Tests Test 05/26/20 16:35 05/26/20 20:53 05/27/20 07:45 05/27/20 07:49 Glucose (Fingerstick) 212 mg/dL (70-99) 210 mg/dL (70-99) 157 mg/dL (70-99) White Blood Count 5.1 x10^3/uL (4.0-11.0) Red Blood Count 2.22 x10^6/uL (3.50-5.40) Hemoglobin 7.4 g/dL (12.0-15.5) Hematocrit 22.6 % (36.0-47.0) Mean Corpuscular Volume 102 fL (79-100) Mean Corpuscular Hemoglobin 33 pg (25-35) Mean Corpuscular Hemoglobin Concent 33 g/dL (31-37) Red Cell Distribution Width 12.7 % (11.5-14.5) Platelet Count 140 x10^3/uL (140-400) Neutrophils (%) (Auto) 56 % (31-73) Lymphocytes (%) (Auto) 28 % (24-48) Monocytes (%) (Auto) 12 % (0-9) Eosinophils (%) (Auto) 3 % (0-3) Basophils (%) (Auto) 1 % (0-3) Neutrophils # (Auto) 2.9 x10^3/uL (1.8-7.7) Lymphocytes # (Auto) 1.4 x10^3/uL (1.0-4.8) Monocytes # (Auto) 0.6 x10^3/uL (0.0-1.1) Eosinophils # (Auto) 0.2 x10^3/uL (0.0-0.7) Basophils # (Auto) 0.0 x10^3/uL (0.0-0.2) Sodium Level 135 mmol/L (136-145) Potassium Level 4.5 mmol/L (3.5-5.1) Chloride Level 96 mmol/L (98-107) Carbon Dioxide Level 29 mmol/L (21-32) Anion Gap 10 (6-14) Blood Urea Nitrogen 38 mg/dL (7-20) Creatinine 6.5 mg/dL (0.6-1.0) Estimated GFR (Cockcroft-Gault) 6.5 Glucose Level 158 mg/dL (70-99) Calcium Level 8.4 mg/dL (8.5-10.1) Results All relevant outside records, renal labs, imaging studies, telemetry/EKG's were reviewed. Justicifation of Admission Dx: Justifications for Admission: Justification of Admission Dx: N/A JAIMEE MATIAS MD May 27, 2020 10:21
[2020-05-27 11:07] VITALS: BP 142/57
[2020-05-27] MEDS ORDERED: ONDANSETRON PF 4 MG/2 ML VIAL. IVP PRN (13:15)
--- NOTE | 2020-05-27 14:24 | NUR ---
SS following up with discharge planning. SS reviewed pt chart and discussed with pt RN. Pt is currently on room air. COVID19 negative. PT/OT recommended home with assistance. Discharge plan is to home when medically ready. Pt has outpatient dialysis at [facility]. SS will continue to follow for discharge planning.
--- NOTE | 2020-05-27 14:39 | PDOC ---
KEIRY MARTINI CROWN PRESSER 05/27/20 1439: CARDIO Progress Notes Date and Time Date of Service 05/27/2020 Time of Evaluation 1250 Subjective Subjective: No Chest Pain, No shortness of breath, No Palpitations Vitals Vitals Vital Signs Date Time Temp Pulse Resp B/P (MAP) Pulse Ox O2 Delivery O2 Flow Rate FiO2 05/27/20 14:24 60 137/55 05/27/20 11:07 98.2 16 100 Room Air 98.2 Weight Weight [ ] Input and Output Intake and Output Intake and Output 05/27/20 07:00 Intake Total 600 ml Output Total 300 ml Balance 300 ml Intake Oral 600 ml Output Urine Total 300 ml # Voids 1 Laboratory Labs Laboratory Tests Test 05/26/20 16:35 05/26/20 20:53 05/27/20 07:45 05/27/20 07:49 Glucose (Fingerstick) 212 mg/dL (70-99) 210 mg/dL (70-99) 157 mg/dL (70-99) White Blood Count 5.1 x10^3/uL (4.0-11.0) Red Blood Count 2.22 x10^6/uL (3.50-5.40) Hemoglobin 7.4 g/dL (12.0-15.5) Hematocrit 22.6 % (36.0-47.0) Mean Corpuscular Volume 102 fL (79-100) Mean Corpuscular Hemoglobin 33 pg (25-35) Mean Corpuscular Hemoglobin Concent 33 g/dL (31-37) Red Cell Distribution Width 12.7 % (11.5-14.5) Platelet Count 140 x10^3/uL (140-400) Neutrophils (%) (Auto) 56 % (31-73) Lymphocytes (%) (Auto) 28 % (24-48) Monocytes (%) (Auto) 12 % (0-9) Eosinophils (%) (Auto) 3 % (0-3) Basophils (%) (Auto) 1 % (0-3) Neutrophils # (Auto) 2.9 x10^3/uL (1.8-7.7) Lymphocytes # (Auto) 1.4 x10^3/uL (1.0-4.8) Monocytes # (Auto) 0.6 x10^3/uL (0.0-1.1) Eosinophils # (Auto) 0.2 x10^3/uL (0.0-0.7) Basophils # (Auto) 0.0 x10^3/uL (0.0-0.2) Sodium Level 135 mmol/L (136-145) Potassium Level 4.5 mmol/L (3.5-5.1) Chloride Level 96 mmol/L (98-107) Carbon Dioxide Level 29 mmol/L (21-32) Anion Gap 10 (6-14) Blood Urea Nitrogen 38 mg/dL (7-20) Creatinine 6.5 mg/dL (0.6-1.0) Estimated GFR (Cockcroft-Gault) 6.5 Glucose Level 158 mg/dL (70-99) Calcium Level 8.4 mg/dL (8.5-10.1) Test 05/27/20 11:42 Glucose (Fingerstick) 245 mg/dL (70-99) Physical Exam HEENT: Neck Supple W Full Motion Chest: Symmetric LUNGS: Clear to Auscultation Heart: S1S2, RRR (SR) Abdomen: Soft N/T, Other (obese) Extremities: No Calf Tenderness, Other (Left arm edema S/P AV dialysis fistula with bruising, Dressing D/I) Neurology: alert, oriented, follow commands Assessment Assessment 1. Atypical chest pain: possibly GI, none further 2. ESRD 3. Accelerated HTN: better after regimen adjustment 3. Acute on chronic diastolic CHF 4. Mild troponin elevation: Peaked at 0.9, suspect demand mediated with culprits above 5. HLP 6. DM2 7. CAD: PCI/JULIEN to RCA 2016 Recommendations 1. ASA, continue statin 2. Fluid off loading per HD 3. Continue current secondary prevention measures. ASA 4. Continue current BP regimen 5. Out pt follow up with Dr. Coburn in July 04. 9:15 AM 6. Plan for outpt MPI and TTE prior to appt. Justicifation of Admission Dx: Justifications for Admission: Justification of Admission Dx: N/A JITENDRA COBURN MD 05/27/20 9273: CARDIO Progress Notes Plan Plan Pt. seen and examined. Agree with above ZOOLOGY TEACHER note. Continue BP mgmt. Outpt ischemic eval. Thanks KEIRY MARTINI CROWN PRESSER May 27, 2020 14:39 JITENDRA COBURN MD May 27, 2020 23:23
[2020-05-27 15:07] VITALS: BP 138/57
[2020-05-27 19:50] VITALS: BP 151/53
[2020-05-27] MEDS: ATORVASTATIN CALCIUM 40 MG TABLET. PO SCH (21:16)
[2020-05-27 23:30] VITALS: BP 165/53
[2020-05-28 03:10] VITALS: BP 190/57
--- NOTE | 2020-05-28 04:00 | EKG ---
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
[2020-05-28 07:00] VITALS: BP 140/50
[2020-05-28] MEDS: INSULIN LISPRO 300 UNITS/3 ML VIAL. SQ SCH ×3 (08:00→17:00)
[2020-05-28 09:02] LABS: BASO % 1 % (0-3); EOS # 0.2 x10^3/uL (0.0-0.7); EOS % 3 % (0-3); HEMATOCRIT 23.2 % (36.0-47.0); HEMOGLOBIN 7.7 g/dL (12.0-15.5); LYMPH # 1.1 x10^3/uL (1.0-4.8); LYMPH % 16 % (24-48); MEAN CORPUSCULAR HEMOGLOBIN 34 pg (25-35); MEAN CORPUSCULAR HGB CONC 33 g/dL (31-37); MEAN CORPUSCULAR VOLUME 101 fL (79-100); MONO # 0.6 x10^3/uL (0.0-1.1); MONO % 10 % (0-9); NEUT # 4.7 x10^3/uL (1.8-7.7); NEUT % 70 % (31-73); PLATELET COUNT 138 x10^3/uL (140-400); RED BLOOD COUNT 2.29 x10^6/uL (3.50-5.40); RED CELL DISTRIBUTION WIDTH 12.5 % (11.5-14.5); WHITE BLOOD COUNT 6.6 x10^3/uL (4.0-11.0)
[2020-05-28] MEDS: LISINOPRIL 20 MG TABLET PO SCH (09:05)
[2020-05-28] MEDS: ISOSORBIDE MONONITRATE ER 30 MG TAB.ER.24H PO SCH (09:05)
[2020-05-28] MEDS: CALCIUM ACETATE 667 MG CAPSULE PO SCH ×3 (09:05→17:00)
[2020-05-28] MEDS: LABETALOL HCL 200 MG TABLET PO SCH (09:06)
[2020-05-28] MEDS: ASPIRIN ENTERIC COATED 81 MG TABLET.DR. PO SCH (09:07)
[2020-05-28] MEDS: FUROSEMIDE 40 MG TABLET. PO SCH ×2 (09:07→16:00)
[2020-05-28 09:11] LABS: CALCIUM 8.6 mg/dL (8.5-10.1); CREATININE 8.4 mg/dL (0.6-1.0); GFR 4.8; POTASSIUM 4.9 mmol/L (3.5-5.1)
[2020-05-28] MEDS: CLOPIDOGREL BISULFATE 75 MG TABLET PO SCH (09:11)
[2020-05-28] MEDS: HEPARIN for SUB-Q USE 5,000 UNIT/ML VIAL. SQ SCH ×2 (09:19→13:57)
--- NOTE | 2020-05-28 09:29 | PDOC ---
[employer] PROGRESS NOTE Date of Service DOS: DATE: 05/28/20 TIME: 09:23 Chief Complaint Chief Complaint Chest pain, HTN End-stage renal disease on dialysis, noncompliance, acute diastolic CHF, diabetes, hypertension, hyperlipidemia, possible community-acquired pneumonia, ruled out, psoriasis, angioplasty, thoracentesis, cardiac stents, dialysis catheter placement. History of Present Illness History of Present Illness Ms Varela 65 yo F with multiple comorbidities. She is well known to my service. She basically presented last night with chest pain, rates it at 6/10, has been occurring for several days, worse with moving, better with si tting still. She increased her home meds, but that did not work, described as very irritating. I discussed the case with ER physician. We are admitting the patient with consultation to Cardiology. 05/25: Patient seen and examined 05/26: Patient seen and evaluated. Still with some hypertension today, started on hydralazine yesterday. HD today. Per cardiology, outpatient 2D echo and stress test. 05/27: Afebrile. Nausea and vomiting today. BP still elevated. Emphasize need for HD compliance. 05/28: Patient seen and evaluated. Afebrile, still with some nausea. Cardiology recommended outpatient ischemic evaluation. She is scheduled for HD today, which will help remove fluid. If she tolerates HD well today she may discharge home afterwards. Greater than 30 minutes was spent managing the discharge this patient. Vitals/I&O Vitals/I&O: Vital Signs Date Time Temp Pulse Resp B/P (MAP) Pulse Ox O2 Delivery O2 Flow Rate FiO2 05/28/20 09:06 68 05/28/20 03:10 97.8 18 190/57 (101) 97 Room Air 97.8 I & O 05/27/20 05/27/20 05/28/20 15:00 23:00 07:00 Intake Total 600 ml 480 ml 120 ml Output Total 100 ml 150 ml Balance 600 ml 380 ml -30 ml Physical Exam General: Alert, Oriented X3, Cooperative, No acute distress Heart: Regular rate Lungs: Crackles, Other Abdomen: Normal bowel sounds, Soft, No tenderness Extremities: No cyanosis Skin: No breakdown, No significant lesion Labs Labs: Laboratory Tests Test 05/27/20 11:42 05/27/20 16:41 05/27/20 21:18 05/28/20 08:21 Glucose (Fingerstick) 245 mg/dL (70-99) 216 mg/dL (70-99) 236 mg/dL (70-99) White Blood Count 6.6 x10^3/uL (4.0-11.0) Red Blood Count 2.29 x10^6/uL (3.50-5.40) Hemoglobin 7.7 g/dL (12.0-15.5) Hematocrit 23.2 % (36.0-47.0) Mean Corpuscular Volume 101 fL (79-100) Mean Corpuscular Hemoglobin 34 pg (25-35) Mean Corpuscular Hemoglobin Concent 33 g/dL (31-37) Red Cell Distribution Width 12.5 % (11.5-14.5) Platelet Count 138 x10^3/uL (140-400) Neutrophils (%) (Auto) 70 % (31-73) Lymphocytes (%) (Auto) 16 % (24-48) Monocytes (%) (Auto) 10 % (0-9) Eosinophils (%) (Auto) 3 % (0-3) Basophils (%) (Auto) 1 % (0-3) Neutrophils # (Auto) 4.7 x10^3/uL (1.8-7.7) Lymphocytes # (Auto) 1.1 x10^3/uL (1.0-4.8) Monocytes # (Auto) 0.6 x10^3/uL (0.0-1.1) Eosinophils # (Auto) 0.2 x10^3/uL (0.0-0.7) Basophils # (Auto) 0.0 x10^3/uL (0.0-0.2) Sodium Level 130 mmol/L (136-145) Potassium Level 4.9 mmol/L (3.5-5.1) Chloride Level 95 mmol/L (98-107) Carbon Dioxide Level 30 mmol/L (21-32) Anion Gap 5 (6-14) Blood Urea Nitrogen 52 mg/dL (7-20) Creatinine 8.4 mg/dL (0.6-1.0) Estimated GFR (Cockcroft-Gault) 4.8 Glucose Level 138 mg/dL (70-99) Calcium Level 8.6 mg/dL (8.5-10.1) Test 2/3/21 08:54 Glucose (Fingerstick) 149 mg/dL (70-99) Assessment and Plan Assessmemt and Plan Problems Medical Problems: (1) Chest pain Status: Acute (2) Hypertension with goal of symptom management only Status: Acute Comment Review of Relevant I have reviewed the following items fede (where applicable) has been applied. Medications: Current Medications Medications (Trade) Dose Ordered Sig/Aguila Route PRN Reason Start Time Stop Time Status Last Admin Dose Admin Ondansetron HCl (Zofran) 4 mg PRN Q4HRS PRN IVP NAUSEA/VOMITING 05/27/20 13:15 05/27/20 13:13 Heparin Sodium (Porcine) (Heparin Sodium) 5,000 unit Q8HRS SQ 05/28/20 09:00 05/28/20 09:19 Justifications for Admission Other Justification MARCO ANTONIO ELISE MD May 28, 2020 09:29
--- NOTE | 2020-05-28 10:20 | SNU/HH DC ---
DISCHARGE WITH HOME HEALTH DISCHARGE INFORMATION: Discharge Date: May 28, 2020 Final Diagnosis: Problems Medical Problems: (1) Chest pain Status: Acute (2) Hypertension with goal of symptom management only Status: Acute Condition on Discharge: Stable CODE STATUS: Code Status: Full HOME HEALTH: Face to Face: I certify this patient is under my care and that I, or a nurse practitioner or physician's assistant associate professor working with me, had a face to face encounter that meets the physician face to face encounter requirements with this patient on 05/28/2020. Medical Complications: Other (ESRD on hemodialysis) RN For Eval/Treatment: Yes Pt Meets Homebound Status: Limited distance walking POST DISCHARGE ORDERS: Activity Instructions for Disc: Activity as tolerated Weight Bearing Status after Di: Non weight bearing DIET AFTER DISCHARGE: Renal Wound/Incision Care: May get incision wet, No wound care needed CHECKS AFTER DISCHARGE: Checks after discharge: Check blood press - daily, Check blood sugar, ac/hs FOLLOW-UP: DC TO SNF LABS: CBC, CMP at time of dialysis TREATMENT/EQUIPMENT ORDERS: Adaptive Equipment Issued: Walker CERTIFICATION STATEMENT: Certification Statement: Certification Statement: Based on the above finding, I certify that this patient is confined to the home and needs intermittent fpc care, physical therapy and/or speech therapy, or continues to need occupational therapy.~ This patient is under my care, and I have initiated the establishment of the plan of care.~ This patient will be followed by myself or a community physician who will periodically review the plan of care. Home Meds Active Scripts Albuterol Sulfate (PROAIR HFA INHALER) 8.5 Gm Hfa.aer.ad, 1 PUFF INH PRN Q6HRS PRN for High Potassium for 30 Days, #1 INHALER 2 Refills Prov:RAMON RO MD 11/04/18 Furosemide (FUROSEMIDE) 40 Mg Tablet, 40 MG PO BID for water pill for 30 Days, #60 TAB 2 Refills Prov:RAMON RO MD 11/04/18 Carvedilol (CARVEDILOL) 25 Mg Tablet, 25 MG PO BIDWMEALS for CARDIAC for 30 Days, #60 TAB 2 Refills Prov:RAMON RO MD 11/04/18 Isosorbide Mononitrate (ISOSORBIDE MONONITRATE ER) 30 Mg Tab.er.24h, 30 MG PO DAILY for blood pressure for 30 Days, #30 TAB.SR 2 Refills Prov:RAMON RO MD 11/04/18 Atorvastatin Calcium (ATORVASTATIN CALCIUM) 40 Mg Tablet, 80 MG PO QHS for hld for 30 Days, #60 TAB 2 Refills Can replace with 80mg Tabs #30 per month Prov:RAMON RO MD 11/04/18 Clopidogrel Bisulfate (CLOPIDOGREL) 75 Mg Tablet, 75 MG PO DAILY for cad for 30 Days, #30 TAB 2 Refills Prov:RAMON RO MD 11/04/18 Aspirin (ASPIRIN EC) 81 Mg Tablet.dr, 81 MG PO DAILYWBKFT for antiplatelet for 30 Days, #30 TAB 2 Refills Prov:RAMON RO MD 11/04/18 Clonazepam (CLONAZEPAM ) 0.5 Mg Tablet, 0.5 MG PO TID PRN for ANXIETY / AGITATION for 30 Days, #30 TAB Prov:LIUDMILA NEAL MD 06/17/18 Reported Medications Calcium Acetate (CALCIUM ACETATE) 667 Mg Tablet, 3 TAB PO TID for for 30 Days, #270 TAB 0 Refills 08/02/19 Lisinopril (LISINOPRIL) 40 Mg Tablet, 1 TAB PO BID for , #30 TAB 5 Refills 08/02/19 Amlodipine Besylate (AMLODIPINE BESYLATE) 10 Mg Tablet, 10 MG PO DAILY for , TAB 08/02/19 MARCO ANTONIO ELISE MD May 28, 2020 10:20
[2020-05-28] MEDS ORDERED: ONDA4TAB7 PO (10:22)
--- NOTE | 2020-05-28 10:31 | PDOC3 ---
Discharge Summary Visit Information Date of Admission: May 23, 2020 Date of Discharge: May 28, 2020 Final Diagnosis Problems Medical Problems: (1) Chest pain Status: Acute (2) Hypertension with goal of symptom management only Status: Acute Brief Hospital Course Allergies Allergies Coded Allergies Type Severity Reaction Last Updated Verified No Known Drug Allergies 11/28/17 No Vital Signs Vital Signs Date Time Temp Pulse Resp B/P (MAP) Pulse Ox O2 Delivery O2 Flow Rate FiO2 05/28/20 09:06 68 05/28/20 07:00 97.8 18 140/50 (80) 99 Room Air 97.8 Lab Results Laboratory Tests Test 05/26/20 16:35 05/26/20 20:53 05/27/20 07:45 05/27/20 07:49 Glucose (Fingerstick) 212 mg/dL (70-99) 210 mg/dL (70-99) 157 mg/dL (70-99) White Blood Count 5.1 x10^3/uL (4.0-11.0) Red Blood Count 2.22 x10^6/uL (3.50-5.40) Hemoglobin 7.4 g/dL (12.0-15.5) Hematocrit 22.6 % (36.0-47.0) Mean Corpuscular Volume 102 fL (79-100) Mean Corpuscular Hemoglobin 33 pg (25-35) Mean Corpuscular Hemoglobin Concent 33 g/dL (31-37) Red Cell Distribution Width 12.7 % (11.5-14.5) Platelet Count 140 x10^3/uL (140-400) Neutrophils (%) (Auto) 56 % (31-73) Lymphocytes (%) (Auto) 28 % (24-48) Monocytes (%) (Auto) 12 % (0-9) Eosinophils (%) (Auto) 3 % (0-3) Basophils (%) (Auto) 1 % (0-3) Neutrophils # (Auto) 2.9 x10^3/uL (1.8-7.7) Lymphocytes # (Auto) 1.4 x10^3/uL (1.0-4.8) Monocytes # (Auto) 0.6 x10^3/uL (0.0-1.1) Eosinophils # (Auto) 0.2 x10^3/uL (0.0-0.7) Basophils # (Auto) 0.0 x10^3/uL (0.0-0.2) Sodium Level 135 mmol/L (136-145) Potassium Level 4.5 mmol/L (3.5-5.1) Chloride Level 96 mmol/L (98-107) Carbon Dioxide Level 29 mmol/L (21-32) Anion Gap 10 (6-14) Blood Urea Nitrogen 38 mg/dL (7-20) Creatinine 6.5 mg/dL (0.6-1.0) Estimated GFR (Cockcroft-Gault) 6.5 Glucose Level 158 mg/dL (70-99) Calcium Level 8.4 mg/dL (8.5-10.1) Test 05/27/20 11:42 05/27/20 16:41 05/27/20 21:18 05/28/20 08:21 Glucose (Fingerstick) 245 mg/dL (70-99) 216 mg/dL (70-99) 236 mg/dL (70-99) White Blood Count 6.6 x10^3/uL (4.0-11.0) Red Blood Count 2.29 x10^6/uL (3.50-5.40) Hemoglobin 7.7 g/dL (12.0-15.5) Hematocrit 23.2 % (36.0-47.0) Mean Corpuscular Volume 101 fL (79-100) Mean Corpuscular Hemoglobin 34 pg (25-35) Mean Corpuscular Hemoglobin Concent 33 g/dL (31-37) Red Cell Distribution Width 12.5 % (11.5-14.5) Platelet Count 138 x10^3/uL (140-400) Neutrophils (%) (Auto) 70 % (31-73) Lymphocytes (%) (Auto) 16 % (24-48) Monocytes (%) (Auto) 10 % (0-9) Eosinophils (%) (Auto) 3 % (0-3) Basophils (%) (Auto) 1 % (0-3) Neutrophils # (Auto) 4.7 x10^3/uL (1.8-7.7) Lymphocytes # (Auto) 1.1 x10^3/uL (1.0-4.8) Monocytes # (Auto) 0.6 x10^3/uL (0.0-1.1) Eosinophils # (Auto) 0.2 x10^3/uL (0.0-0.7) Basophils # (Auto) 0.0 x10^3/uL (0.0-0.2) Sodium Level 130 mmol/L (136-145) Potassium Level 4.9 mmol/L (3.5-5.1) Chloride Level 95 mmol/L (98-107) Carbon Dioxide Level 30 mmol/L (21-32) Anion Gap 5 (6-14) Blood Urea Nitrogen 52 mg/dL (7-20) Creatinine 8.4 mg/dL (0.6-1.0) Estimated GFR (Cockcroft-Gault) 4.8 Glucose Level 138 mg/dL (70-99) Calcium Level 8.6 mg/dL (8.5-10.1) Test 05/28/20 08:54 Glucose (Fingerstick) 149 mg/dL (70-99) Laboratory Tests Test 05/27/20 11:42 05/27/20 16:41 05/27/20 21:18 05/28/20 08:21 Glucose (Fingerstick) 245 mg/dL (70-99) 216 mg/dL (70-99) 236 mg/dL (70-99) White Blood Count 6.6 x10^3/uL (4.0-11.0) Red Blood Count 2.29 x10^6/uL (3.50-5.40) Hemoglobin 7.7 g/dL (12.0-15.5) Hematocrit 23.2 % (36.0-47.0) Mean Corpuscular Volume 101 fL (79-100) Mean Corpuscular Hemoglobin 34 pg (25-35) Mean Corpuscular Hemoglobin Concent 33 g/dL (31-37) Red Cell Distribution Width 12.5 % (11.5-14.5) Platelet Count 138 x10^3/uL (140-400) Neutrophils (%) (Auto) 70 % (31-73) Lymphocytes (%) (Auto) 16 % (24-48) Monocytes (%) (Auto) 10 % (0-9) Eosinophils (%) (Auto) 3 % (0-3) Basophils (%) (Auto) 1 % (0-3) Neutrophils # (Auto) 4.7 x10^3/uL (1.8-7.7) Lymphocytes # (Auto) 1.1 x10^3/uL (1.0-4.8) Monocytes # (Auto) 0.6 x10^3/uL (0.0-1.1) Eosinophils # (Auto) 0.2 x10^3/uL (0.0-0.7) Basophils # (Auto) 0.0 x10^3/uL (0.0-0.2) Sodium Level 130 mmol/L (136-145) Potassium Level 4.9 mmol/L (3.5-5.1) Chloride Level 95 mmol/L (98-107) Carbon Dioxide Level 30 mmol/L (21-32) Anion Gap 5 (6-14) Blood Urea Nitrogen 52 mg/dL (7-20) Creatinine 8.4 mg/dL (0.6-1.0) Estimated GFR (Cockcroft-Gault) 4.8 Glucose Level 138 mg/dL (70-99) Calcium Level 8.6 mg/dL (8.5-10.1) Test 05/28/20 08:54 Glucose (Fingerstick) 149 mg/dL (70-99) Brief Hospital Course Ms. Varela is a 65 old female with history of seizure history who presented with missed episodes of hemodialysis, accelerated hypertension, elevated troponins, acute on chronic diastolic congestive heart failure. Consultations placed to nephrology and cardiology. She had several rounds of hemodialysis on her regular schedule Tuesday/Tuesday/Tuesday. Cardiology recommended fluid offloading per HD. He was recommended to follow-up with cardiology outpatient for MPI and TTE. After several rounds of hemodialysis patient felt comfortable discharging home with cardiology follow-up. Discharge Information Condition at Discharge: Improved Follow Up: Weeks Disposition/Orders: D/C to Home w/ HH Scheduled Amlodipine Besylate (Amlodipine Besylate) 10 Mg Tablet, 10 MG PO DAILY for , (Reported) Entered as Reported by: Antolin Mckeon on 08/02/198 Last Action: Continued on 05/24/20 1054 by ANTIONETTE WYNNE Aspirin (Aspirin Ec) 81 Mg Tablet., 81 MG PO DAILYWBKFT for antiplatelet for 30 Days, #30 Ref 2 Prescribed by: RAMON RO MD on 7/13/19 1329 Last Action: Continued on 05/24/20 1054 by ANTIONETTE WYNNE Atorvastatin Calcium (Atorvastatin Calcium) 40 Mg Tablet, 80 MG PO QHS for hld for 30 Days, #60 Ref 2 Can replace with 80mg Tabs #30 per month Prescribed by: RAMON OR MD on 11/04/181328 Last Action: Continued on 05/24/20 1054 by ANTIONETTE WYNNE Calcium Acetate (Calcium Acetate) 667 Mg Tablet, 3 TAB PO TID for for 30 Days, #270 Ref 0 (Reported) Entered as Reported by: Antolin Mckeon on 08/02/192224 Last Action: Converted on 05/24/20 1054 by ANTIONETTE WYNNE Carvedilol (Carvedilol) 25 Mg Tablet, 25 MG PO BIDWMEALS for CARDIAC for 30 Days, #60 Ref 2 Prescribed by: RAMON RO MD on 11/04/181328 Last Action: Converted on 05/24/20 1054 by ANTIONETTE WYNNE Clopidogrel Bisulfate (Clopidogrel) 75 Mg Tablet, 75 MG PO DAILY for cad for 30 Days, #30 Ref 2 Prescribed by: RAMON RO MD on 11/04/181328 Last Action: Continued on 05/24/20 1054 by ANTIONETTE WYNNE Furosemide (Furosemide) 40 Mg Tablet, 40 MG PO BID for water pill for 30 Days, #60 Ref 2 Prescribed by: RAMON RO MD on 11/04/181328 Last Action: Continued on 05/24/20 1054 by ANTIONETTE WYNNE Isosorbide Mononitrate (Isosorbide Mononitrate Er) 30 Mg Tab.er.24h, 30 MG PO DAILY for blood pressure for 30 Days, #30 Ref 2 Prescribed by: RAMON RO MD on 11/04/181328 Last Action: Continued on 05/24/20 1054 by ANTIONETTE WYNNE Lisinopril (Lisinopril) 40 Mg Tablet, 1 TAB PO BID for , #30 Ref 5 (Reported) Entered as Reported by: Antolin Mckeon on 08/02/192224 Last Action: Continued on 05/24/20 1054 by ANTIONETTE WYNNE Ondansetron Hcl (Zofran) 4 Mg Tablet, 1 TAB PO Q8HRS for Nausea, #10 Ref 0 Prescribed by: MARCO ANTONIO ELISE MD on 05/28/20 1022 Scheduled PRN Albuterol Sulfate (Proair Hfa Inhaler) 8.5 Gm Hfa.aer.ad, 1 PUFF INH PRN Q6HRS PRN for High Potassium for 30 Days, #1 Ref 2 Prescribed by: RAMON RO MD on 11/04/18 1331 Clonazepam (Clonazepam ) 0.5 Mg Tablet, 0.5 MG PO TID PRN for ANXIETY / AGITATION for 30 Days, #30 Prescribed by: LIUDMILA NEAL MD on 06/17/18 0952 Last Action: Continued on 05/24/20 1054 by ANTIONETTE WYNNE Justicifation of Admission Dx: Justifications for Admission: Justification of Admission Dx: N/A MARCO ANTONIO ELISE MD May 28, 2020 10:31
[2020-05-28 11:00] VITALS: BP 142/58
[2020-05-28] MEDS ORDERED: ALBUMIN HUMAN 25% 200 ML IV PRN (12:30)
[2020-05-28] MEDS ORDERED: IV NORMAL SALINE 1000ML BAG 1,000 ML IV PRN ×2 (12:30)
[2020-05-28] MEDS ORDERED: DIALYSIS PATIENT. MC PRN ×2 (12:30)
[2020-05-28] MEDS ORDERED: 0.9 % SODIUM CHLORIDE 10 ML DISP.SYRIN. IV PRN ×2 (12:30)
--- NOTE | 2020-05-28 12:51 | PDOC ---
DATE OF SERVICE DATE: 05/28/20 TIME: 12:47 SUBJECTIVE ROS Stable OBJECTIVE Vital Signs Vital Signs Date Time Temp Pulse Resp B/P (MAP) Pulse Ox O2 Delivery O2 Flow Rate FiO2 05/28/20 11:00 97.8 64 18 142/58 (86) 98 Room Air 97.8 I & 0 Intake and Output 05/28/20 07:00 Intake Total 1200 ml Output Total 250 ml Balance 950 ml Intake Oral 1200 ml Output Urine Total 250 ml PHYSICAL EXAM Physical Exam General: Alert, Oriented X3 HEENT: Atraumatic Lungs: Clear to auscultation Heart: Regular rate Abdomen: Soft, No hepatosplenomegaly Neuro: Normal speech Psych/Mental Status: Mood NL DIAGNOSIS/ASSESSMENT Assessment & Plan ESRD-- MWF Dialysis today, treatment plan dw Nelsy S/P Lt AVF recently Chest Pain Per cardiology most probably GI etiology since this is associated with nausea and worse in the night history of coronary artery disease s/p PCI/stent placement to RCA in 2015. Her 2D echo in May 2018 showed LVEF 50 to 55%. Plan for outpatient 2D echo and Lexiscan nuclear stress test. Accelerated hypertension:cardiology managing HyperKalemia resolved Anemia- slow decline since admission . Start COLLEEN diabetes mellitus type II HTN- Antihypertensives Chronic Non compliance with HD , COMMENT/RELEVANT DATA Meds Current Medications Medications (Trade) Dose Ordered Sig/[place] Start Time Stop Time Status Last Admin Dose Admin Albumin Human 200 ml @ 200 mls/hr 1X PRN PRN 05/28/20 12:30 05/28/20 18:29 Amlodipine Besylate (Norvasc) 10 mg DAILY 05/24/20 11:30 05/28/20 09:06 10 MG Aspirin (Ecotrin) 81 mg DAILYWBKFT 05/24/20 11:30 05/28/20 09:07 81 MG Atorvastatin Calcium (Lipitor) 80 mg QHS 05/24/20 21:00 05/27/20 21:16 80 MG Calcium Acetate (Phoslo) 2,001 mg TIDWMEALS 05/24/20 12:00 05/28/20 09:05 2,001 MG Carvedilol (Coreg) 25 mg BIDWMEALS 05/24/20 11:30 05/24/20 13:28 DC 05/24/20 11:31 25 MG Clonazepam (KlonoPIN) 0.5 mg TID PRN 05/24/20 10:45 05/26/20 21:09 0.5 MG Clopidogrel Bisulfate (Plavix) 75 mg DAILY 05/24/20 11:30 05/28/20 09:11 75 MG Darbepoetin Malick (ARANESP for DIALYSIS PTS) 60 mcg WEEKLYHS 05/26/20 21:00 05/26/20 21:15 60 MCG Furosemide (Lasix) 40 mg BID94 05/24/20 11:30 05/28/20 09:07 40 MG Heparin Sodium (Porcine) (Heparin Sodium) 5,000 unit Q8HRS 05/28/20 09:00 05/28/20 09:19 5,000 UNIT Hydralazine HCl (Apresoline Inj) 10 mg PRN Q4HRS PRN 05/26/20 14:15 05/26/20 14:29 10 MG Hydralazine HCl (Apresoline) 50 mg TID 05/26/20 14:00 05/27/20 21:17 50 MG Info (PHARMACY MONITORING -- do not chart) 1 each PRN DAILY PRN 05/28/20 12:30 Insulin Human Lispro (HumaLOG) 0-5 UNITS TIDWMEALS 05/28/20 08:00 Isosorbide Mononitrate (Imdur) 30 mg DAILY 05/24/20 11:30 05/28/20 09:05 30 MG Labetalol HCl (Normodyne Iv Push) 10 mg 1X ONCE 05/26/20 15:30 05/26/20 15:31 DC 05/26/20 15:34 10 MG Labetalol HCl (Trandate) 400 mg BID 05/26/20 21:00 05/28/20 09:06 400 MG Lisinopril (Prinivil) 40 mg DAILY 05/24/20 13:30 05/28/20 09:05 40 MG Morphine Sulfate (Morphine Sulfate) 2 mg PRN Q2HR PRN 05/26/20 13:30 05/27/20 13:47 DC Nitroglycerin (Nitro-Bid Oint) 1 inch 1X ONCE 05/23/20 17:45 05/23/20 17:46 DC 05/23/20 18:22 1 INCH Nitroglycerin (Nitrostat) 0.4 mg PRN Q5MIN PRN 05/23/20 17:15 Ondansetron HCl (Zofran) 4 mg PRN Q4HRS PRN 05/27/20 13:15 05/27/20 13:13 4 MG Sodium Chloride 1,000 ml @ 400 mls/hr Q2H30M PRN 05/28/20 12:30 05/29/20 00:29 Sodium Chloride (Normal Saline Flush) 10 ml 1X PRN PRN 05/28/20 12:30 05/29/20 12:29 Tramadol HCl (Ultram) 50 mg PRN Q4HRS PRN 05/26/20 13:30 05/26/20 21:14 50 MG Lab Laboratory Tests Test 05/27/20 16:41 05/27/20 21:18 05/28/20 08:21 05/28/20 08:54 Glucose (Fingerstick) 216 mg/dL (70-99) 236 mg/dL (70-99) 149 mg/dL (70-99) White Blood Count 6.6 x10^3/uL (4.0-11.0) Red Blood Count 2.29 x10^6/uL (3.50-5.40) Hemoglobin 7.7 g/dL (12.0-15.5) Hematocrit 23.2 % (36.0-47.0) Mean Corpuscular Volume 101 fL (79-100) Mean Corpuscular Hemoglobin 34 pg (25-35) Mean Corpuscular Hemoglobin Concent 33 g/dL (31-37) Red Cell Distribution Width 12.5 % (11.5-14.5) Platelet Count 138 x10^3/uL (140-400) Neutrophils (%) (Auto) 70 % (31-73) Lymphocytes (%) (Auto) 16 % (24-48) Monocytes (%) (Auto) 10 % (0-9) Eosinophils (%) (Auto) 3 % (0-3) Basophils (%) (Auto) 1 % (0-3) Neutrophils # (Auto) 4.7 x10^3/uL (1.8-7.7) Lymphocytes # (Auto) 1.1 x10^3/uL (1.0-4.8) Monocytes # (Auto) 0.6 x10^3/uL (0.0-1.1) Eosinophils # (Auto) 0.2 x10^3/uL (0.0-0.7) Basophils # (Auto) 0.0 x10^3/uL (0.0-0.2) Sodium Level 130 mmol/L (136-145) Potassium Level 4.9 mmol/L (3.5-5.1) Chloride Level 95 mmol/L (98-107) Carbon Dioxide Level 30 mmol/L (21-32) Anion Gap 5 (6-14) Blood Urea Nitrogen 52 mg/dL (7-20) Creatinine 8.4 mg/dL (0.6-1.0) Estimated GFR (Cockcroft-Gault) 4.8 Glucose Level 138 mg/dL (70-99) Calcium Level 8.6 mg/dL (8.5-10.1) Test 05/28/20 12:07 Glucose (Fingerstick) 173 mg/dL (70-99) Results All relevant outside records, renal labs, imaging studies, telemetry/EKG's were reviewed. Justicifation of Admission Dx: Justifications for Admission: Justification of Admission Dx: N/A JAIMEE MATIAS MD May 28, 2020 12:51
--- NOTE | 2020-05-28 13:04 | NUR ---
SS following up with discharge planning. SS reviewed pt chart and discussed with pt RN. Pt is currently on room air. COVID19 negative. PT/OT recommended home with assistance. Discharge plan is to home when medically ready. Pt has outpatient dialysis at [facility]. SS contacted pt's family and discussed home healthcare. Pt is Korean speaking only. Pt's family declined home healthcare. Probable discharge to home today if blood pressure is good. SS will continue to follow for discharge planning.
--- NOTE | 2020-05-28 13:57 | NUR ---
patient off of unit for dialysis
[2020-05-28] MEDS ORDERED: LISI-130 PO (15:33)
[2020-05-28] MEDS ORDERED: HYDR-2869 PO (15:33)
[2020-05-28] MEDS ORDERED: LABE200T4 PO (15:33)
[2020-05-28] MEDS: traMADol 50 MG TABLET PO PRN (16:18)
--- NOTE | 2020-05-28 18:40 | NUR ---
Discharge: Teaching verbal and written. Reviewed medications, follow-up, dialysis, HTN, chest pain, ect. patients daughter speaks Yoruba and translated for patient. Patient and daughter verbalized understanding. Prescriptions sent to pharmacy per physician. All belongings with patient. patient assisted off of unit via wheelchair accompanied by daughter and RN
== END 2020-05-28 18:30 | disposition home health service (06) | DRG 291 ==
LOC: ER 15:37 → 2 SOUTH 17:57
PROVIDERS: ADMIT Family Medicine; ATTEND Family Medicine
PROC: 5A1D70Z Performance of Urinary Filtration, Intermittent, Less than 6 Hours Per Day (ICD-10-PCS; principal; 2020-05-23)
PROC: 5A1D70Z Performance of Urinary Filtration, Intermittent, Less than 6 Hours Per Day (ICD-10-PCS; 2020-05-26)
PROC: 5A1D70Z Performance of Urinary Filtration, Intermittent, Less than 6 Hours Per Day (ICD-10-PCS; 2020-05-28)
DX: I13.2 Hypertensive heart and chronic kidney disease with heart failure and with stage 5 chronic kidney disease, or end stage renal disease (principal); N18.6 End stage renal disease; I50.33 Acute on chronic diastolic (congestive) heart failure; E87.70 Fluid overload, unspecified; K21.9 Gastro-esophageal reflux disease without esophagitis; E78.00 Pure hypercholesterolemia, unspecified; E11.22 Type 2 diabetes mellitus with diabetic chronic kidney disease; Z96.0 Presence of urogenital implants; I25.10 Atherosclerotic heart disease of native coronary artery without angina pectoris; E78.5 Hyperlipidemia, unspecified; D64.9 Anemia, unspecified; E87.5 Hyperkalemia; L40.9 Psoriasis, unspecified; I25.2 Old myocardial infarction; Z87.01 Personal history of pneumonia (recurrent); Z99.2 Dependence on renal dialysis; Z91.15 Patient's noncompliance with renal dialysis; Z95.5 Presence of coronary angioplasty implant and graft; Z83.3 Family history of diabetes mellitus
CPT/HCPCS: 36415; 71045; 80048; 80053; 82962; 83690; 83735; 83880; 84484; 85025; 93005; 99285; J0360; J0882; J1644; J1815; J2405; J3490; 97110-GP; 97116-GP; 97530-GP; G0378